=== PATIENT | male | born 1950 | race Caucasian/White ===

== ENCOUNTER 2020-01-19 10:36 | Outpatient (REF) | payer MEDICARE, OTHER, SELFPAY ==
[2020-01-19 13:19] LABS: MANUAL DIFF FLAG NO
[2020-01-19 13:22] LABS: Basophils Absolute Auto 0.1 X10*3/uL (0.0-0.2); Basophils Percent Auto 0.7 % (0-2); Eosinophils Absolute Auto 0.1 X10*3/uL (0.0-0.4); Eosinophils Percent Auto 1.2 % (0-4); Hematocrit 47.2 % (42-52); Imm Gran Abs Auto 0.04 X10*3/uL (0.00-0.03); Imm Gran Pct Auto 0.4 % (0.0-0.4); Lymphocytes Absolute Auto 1.2 X10*3/uL (1.2-4.9); Lymphocytes Percent Auto 13.6 % (20-40); Mean Corpuscular HGB Conc 33.9 g/dl (31.0-36.0); Mean Corpuscular Hemoglobin 33.8 pg (27.0-33.0); Mean Corpuscular Volume 99.8 fL (80-98); Monocytes Absolute Auto 0.5 X10*3/uL (0.1-1.2); Monocytes Percent Auto 4.9 % (2-11); Neutrophils Absolute Auto 7.3 X10*3/uL (2.0-8.3); Neutrophils Percent Auto 79.2 % (45-73); Platelet Count 255 X10*3/uL (160-400); Red Blood Count 4.73 X10*6/uL (4.60-5.80); Red Cell Distribution Width 13.1 % (11.0-16.0); White Blood Count 9.2 X10*3/uL (4.8-10.8)
[2020-01-19 14:03] LABS: Alanine Aminotransferase 7 U/L (0-40); Albumin Level 4.4 g/dL (3.5-5.0); Alkaline Phosphatase 60 U/L (39-117); Anion Gap 13 (12-20); Aspartate Amino Transferase 19 U/L (5-37); Bilirubin Total 0.7 mg/dL (0.0-1.0); Blood Urea Nitrogen 19 mg/dL (9-16); C Reactive Protein 0.11 mg/dL (< or = 0.50); Calcium 8.9 mg/dL (8.4-10.2); Carbon Dioxide 26 mmol/L (22-29); Chloride 107 mmol/L (96-108); Estimated Glomerular Filt Rate > 60; Glucose Random 96 mg/dL (60-115); Potassium 3.8 mmol/l (3.3-5.1); Sodium 142 mmol/L (135-145); Total Protein 6.7 g/dL (6.5-8.0)
== END 2020-01-19 10:37 | disposition home or self-care (01) ==
LOC: HO.10HDL 10:36
PROVIDERS: Visit Provider Internal Medicine
DX: I10 Essential (primary) hypertension (principal); K21.9 Gastro-esophageal reflux disease without esophagitis; E03.9 Hypothyroidism, unspecified; M54.9 Dorsalgia, unspecified
CPT/HCPCS: 36415; 80053; 85025; 86140

== ENCOUNTER → 2020-01-21 08:05 | Outpatient (BNVA) | payer MEDICARE, OTHER, SELFPAY | PROVIDERS: PCP Internal Medicine; Visit Provider Anesthesiology | DX: M96.1 Postlaminectomy syndrome, not elsewhere classified (principal); G89.4 Chronic pain syndrome; M17.0 Bilateral primary osteoarthritis of knee; Z98.1 Arthrodesis status | CPT/HCPCS: 99214 ==

== ENCOUNTER → 2020-02-18 08:00 | Outpatient (BNVA) | payer MEDICARE, OTHER, SELFPAY | PROVIDERS: PCP Internal Medicine; Visit Provider Anesthesiology | DX: G89.4 Chronic pain syndrome (principal); M96.1 Postlaminectomy syndrome, not elsewhere classified; M17.0 Bilateral primary osteoarthritis of knee; Z79.891 Long term (current) use of opiate analgesic | CPT/HCPCS: 99212 ==

== ENCOUNTER 2020-03-02 10:35 | Emergency (ER) | payer MEDICARE, OTHER, SELFPAY ==
--- NOTE | 2020-03-02 11:16 | ED_ITS ---
HPI - General Adult General Chief complaint: Neck Pain/Injury Stated complaint: NECK PAIN, NAUSEA Time Seen by Provider: 03/02/20 11:16 Source: patient Mode of arrival: ambulatory Limitations: no limitations History of Present Illness HPI narrative: patient with chronic neck pain, seen at pain clinic on dilaudid and lidoderm patch. Going to have cervical spine surgery at [facility]. Surgery is scheduled for 2 weeks. Patient feels horrible with nausea from his neck Onset (ago): month(s) Radiation: neck and extremity Severity: severe Quality: burning and aching Pain Consistency: constant Associated symptoms: other (patient denies bowel or leg problems) Related Data Home Medications Medication Instructions Recorded Confirmed acetaminophen 650 mg 650 mg PO Q8H 01/21/20 02/18/20 tablet,extended release amantadine HCl 100 mg capsule 100 mg PO BID 01/21/20 02/18/20 carbidopa 25 mg-levodopa 100 mg 1 tab PO QID 01/21/20 02/18/20 tablet diazepam 5 mg tablet 5 mg PO BID PRN 01/21/20 02/18/20 diclofenac sodium 1 % topical gel 2 g TOPICAL QID 01/21/20 02/18/20 diltiazem HCl 240 mg 240 mg PO DAILY 01/21/20 02/18/20 capsule,extended release 24 hr finasteride 5 mg tablet 5 mg PO DAILY 01/21/20 02/18/20 ibuprofen 200 mg tablet 200 mg PO Q6H PRN 01/21/20 02/18/20 levothyroxine 50 mcg tablet 50 mcg PO DAILY 01/21/20 02/18/20 lidocaine 5 % topical patch 1 patch TOPICAL DAILY 01/21/20 02/18/20 lisinopril 10 mg tablet 10 mg PO DAILY 01/21/20 02/18/20 multivitamin 1 tab PO DAILY 01/21/20 02/18/20 ondansetron HCl 4 mg tablet 4 mg PO Q8H 01/21/20 02/18/20 polyethylene glycol 3350 17 17 g PO DAILY 01/21/20 02/18/20 gram/dose oral powder pregabalin 100 mg capsule 100 mg PO BEDTIME 01/21/20 02/18/20 tamsulosin 0.4 mg capsule 0.4 mg PO BEDTIME 01/21/20 02/18/20 Previous Rx's Medication Instructions Recorded baclofen 10 mg tablet 10 mg PO TID 30 Days #90 tab MDD 3 01/21/20 pills hydromorphone 2 mg tablet 4 mg PO Q8H PRN 30 Days #112 tab 02/18/20 Allergies Allergy/AdvReac Type Severity Reaction Status Date / Time Sulfa (Sulfonamide Allergy Severe HIVES/DIFF. Unverified 01/01/20 16:49 Antibiotics) BREATHING vancomycin [VANCOMYCIN] Allergy Severe SHORTNESS Unverified 01/01/20 16:49 OF BREATH cephalexin [CEPHALEXIN] Allergy Intermediate SHORTNESS Unverified 01/01/20 16:49 OF BREATH DAIRY PRODUCTS AdvReac Intermediate GI Uncoded 01/01/20 16:49 UPSET/DIARRHEA Review of Systems Constitutional: Constitutional: Reports no additional constitutional complaints Eyes: Eyes: Reports no additional eye complaints ENT: Denies dizziness Cardiovascular: Cardiovascular: Reports no additional cardiovascular complaints Respiratory: Respiratory: Reports as per HPI Gastrointestinal: Gastrointestinal: Reports no additional gastrointestinal complaints Musculoskeletal: Musculoskeletal: Reports no additional musculoskeletal complaints Integumentary/Breasts: Skin/Breast: Denies rash Neurologic: Reports system reviewed and no additional complaints, except as documented, Denies dizziness and Denies Sensory deficit (Neuro) Psychiatric: Psychiatric: Denies anxiety PMFSH Past Medical History Medical History Bilateral primary osteoarthritis of knee Chronic pain syndrome Failed back syndrome of cervical spine Social History Social History Advance Directives: Yes Advance Directives on File: Yes Advance Directives Date on File: 01/19/20 Physical Exam Vital Signs: Vital Signs: Last Vital Signs Temp 98 F 03/02/20 11:20 Pulse 92 03/02/20 11:20 Resp 18 03/02/20 11:20 BP 144/98 H 03/02/20 11:20 Pulse Ox 98 03/02/20 11:20 Body Mass Index 32.8 Const: General: healthy appearing Nutritional Appearance: average body habitus Orientation/consciousness: oriented to person and patient oriented x3 Limitations: no limitations HENMT: Head: Yes normal to inspection Ears: external ears normal General nose exam: Normal external nose present Mouth: Normal oral and palatal mucosa present and oropharynx normal Throat: Yes posterior oropharynx normal Eyes: General: appearance normal, both eyes and all related structures Neck: Other: supple Neck: Yes normal visual inspection Chest: Chest palpation & inspection: normal inspection of the chest Resp: Auscultation: clear to auscultation bilaterally Cardio: Jugular venous distension: no JVD Rate: regular rate Rhythm: regular rhythm Heart sounds: S1 normal heart sound present and S2 normal heart sound present GI: Inspection: Yes normal to inspection Palpation (GI): Soft to palpation, nontender and No hepatosplenomegaly present Auscultation: normal bowel sounds : General: Yes no CVA tenderness Back/Spine/Pelvis: Back: no CVA tenderness Skin: General skin exam: no rashes or lesions noted Neuro: General: oriented to person and patient oriented x3 Cranial nerves: Yes CN's II-XII intact bilaterally Motor exam (neuro): 5/5 motor strength present throughout Sensory Exam: No Sensory deficit (Neuro) Extrem: General: Yes normal to inspection Psych: Appearance: grossly normal Course Course Course Narrative: patient resting more comfortably will dc home Medical Decision Making [facility] Narrative Medical decision making narrative: chronic radicular pain from cervical disease will dc home Discharge Plan Discharge Clinical Impression: Chronic pain syndrome, Disc disorder of cervical region, Cervical radiculopathy Patient Disposition: Home, Self-Care Instructions: Cervical Disc Herniation (ED), Cervical Radiculopathy (ED), Osteoarthritis (ED) Prescriptions: No Action diltiazem HCl 240 mg capsule,extended release 24hr 240 mg PO DAILY RF: 0 levothyroxine 50 mcg tablet 50 mcg PO DAILY RF: 0 diazepam 5 mg tablet 5 mg PO BID PRNRF: 0 lidocaine 5 % adhesive patch,medicated 1 patch topical DAILY RF: 0 diclofenac sodium 1 % gel 2 g topical QID RF: 0 carbidopa-levodopa 25-100 mg tablet 1 tab PO QID RF: 0 tamsulosin 0.4 mg capsule 0.4 mg PO BEDTIME RF: 0 amantadine HCl 100 mg capsule 100 mg PO BID RF: 0 lisinopril 10 mg tablet 10 mg PO DAILY RF: 0 polyethylene glycol 3350 [Miralax] 17 gram/dose powder 17 g PO DAILY RF: 0 ibuprofen 200 mg tablet 200 mg PO Q6H PRNRF: 0 finasteride 5 mg tablet 5 mg PO DAILY RF: 0 pregabalin 100 mg capsule 100 mg PO BEDTIME RF: 0 ondansetron HCl 4 mg tablet 4 mg PO Q8H RF: 0 multivitamin [Daily Multi-Vitamin] Tablet 1 tab PO DAILY RF: 0 acetaminophen [Tylenol Arthritis Pain] 650 mg tablet extended release 650 mg PO Q8H RF: 0 baclofen 10 mg tablet 10 mg PO TID MDD 3 pills 30 Days Qty: 90 RF: 11 hydromorphone [Dilaudid] 2 mg tablet 4 mg PO Q8H PRN (Reason: pain) 30 Days Qty: 112 RF: 0 Referrals: Enrrique Bryan MD [Primary Care Provider] - 2 days
[2020-03-02 11:20] VITALS: BP 144/98; PULSE 92; RESP 18; TEMP 36.6; O2SAT 98; BMI 32.8
[2020-03-02] MEDS: ondansetron HCL 4 MG/2 ML VIAL IVPUSH (11:54)
[2020-03-02] MEDS: Ketorolac Tromethamine 30 MG/ML VIAL IVPUSH (11:54)
[2020-03-02] MEDS: HYDROmorphone HCl 2 MG/ML VIAL IVPUSH (11:55)
== END 2020-03-02 12:37 | disposition home or self-care (01) ==
PROVIDERS: Emergency Provider Emergency Medicine; PCP Internal Medicine
DX: M54.12 Radiculopathy, cervical region (principal); M54.2 Cervicalgia; G89.29 Other chronic pain; R11.2 Nausea with vomiting, unspecified; Z79.899 Other long term (current) drug therapy
CPT/HCPCS: 96374; 96375; 99283; 99284; J1170; J1885; J2405

== ENCOUNTER 2020-03-04 15:14 | Outpatient (REF) | payer SELFPAY | END 2020-03-04 15:15 | disposition home or self-care (01) | LOC: HO.HAP 15:14 | PROVIDERS: PCP Internal Medicine; Referring Provider Internal Medicine; Visit Provider Internal Medicine | DX: Z13.89 Encounter for screening for other disorder (principal) | CPT/HCPCS: 92700 ==

== ENCOUNTER 2020-03-11 15:26 | Emergency (ER) | payer MEDICARE, OTHER, SELFPAY ==
--- NOTE | 2020-03-11 15:32 | ED.EXTPRO ---
HPI - Extremity Problem General Chief complaint: Extremity Injury, Upper Stated complaint: FINGER INFECTION Time Seen by Provider: 03/11/20 15:30 Source: patient Mode of arrival: ambulatory Limitations: no limitations History of Present Illness HPI Narrative: 69 y/o male with history of chronic pain syndrome on chronic opiates due to postlaminectomy syndrome after 2 neck fusions, osteoarthritis, Parkinson's disease, hypothyroidism, BHN, restless leg syndrome who presents with concerns of ongoing infection in his 2nd and 3rd fingernails. He was treated with Doxycycline by his PCP for paronychia and has some continued tenderness and swelling. He has a major surgery coming up in 4 days at [facility] for his neck and is worried that if his fingernails are infected it may affect his opportunity to get surgery. He denies fever, chills, inability to bend his fingers, throbbing pain, weakness, numbness. He attempted to cut his nails and dig out a possible ingrown nail last week and thinks it might have made it worse. Related Data Home Medications Medication Instructions Recorded Confirmed acetaminophen 650 mg 650 mg PO Q8H 01/21/20 02/18/20 tablet,extended release amantadine HCl 100 mg capsule 100 mg PO BID 01/21/20 02/18/20 carbidopa 25 mg-levodopa 100 mg 1 tab PO QID 01/21/20 02/18/20 tablet diazepam 5 mg tablet 5 mg PO BID PRN 01/21/20 02/18/20 diclofenac sodium 1 % topical gel 2 g TOPICAL QID 01/21/20 02/18/20 diltiazem HCl 240 mg 240 mg PO DAILY 01/21/20 02/18/20 capsule,extended release 24 hr finasteride 5 mg tablet 5 mg PO DAILY 01/21/20 02/18/20 ibuprofen 200 mg tablet 200 mg PO Q6H PRN 01/21/20 02/18/20 levothyroxine 50 mcg tablet 50 mcg PO DAILY 01/21/20 02/18/20 lidocaine 5 % topical patch 1 patch TOPICAL DAILY 01/21/20 02/18/20 lisinopril 10 mg tablet 10 mg PO DAILY 01/21/20 02/18/20 multivitamin 1 tab PO DAILY 01/21/20 02/18/20 ondansetron HCl 4 mg tablet 4 mg PO Q8H 01/21/20 02/18/20 polyethylene glycol 3350 17 17 g PO DAILY 01/21/20 02/18/20 gram/dose oral powder pregabalin 100 mg capsule 100 mg PO BEDTIME 01/21/20 02/18/20 tamsulosin 0.4 mg capsule 0.4 mg PO BEDTIME 01/21/20 02/18/20 Previous Rx's Medication Instructions Recorded baclofen 10 mg tablet 10 mg PO TID 30 Days #90 tab MDD 3 01/21/20 pills hydromorphone 2 mg tablet 4 mg PO Q8H PRN 30 Days #112 tab 02/18/20 doxycycline hyclate 100 mg PO DAILY #10 cap 03/11/20 Allergies Allergy/AdvReac Type Severity Reaction Status Date / Time Sulfa (Sulfonamide Allergy Severe HIVES/DIFF. Verified 03/11/20 16:03 Antibiotics) BREATHING vancomycin [VANCOMYCIN] Allergy Severe SHORTNESS Verified 03/11/20 16:03 OF BREATH cephalexin [CEPHALEXIN] Allergy Intermediate SHORTNESS Verified 03/11/20 16:03 OF BREATH DAIRY PRODUCTS AdvReac Intermediate GI Uncoded 01/01/20 16:49 UPSET/DIARRHEA Review of Systems Review of Systems: Constitutional: No Fever, No Chills Musculoskeletal: + joint pain, No Myalgias Skin: + Skin Lesions, No rash Neuro: No Weakness, No Numbness, No Dizziness, No Headache Psych: + Anxiety, No Depression Heme/Lymph: No Bruising, No Lymphadenopathy PMFSH Past Medical History Attestation statement: The following information was validated with the patient. Medical History Bilateral primary osteoarthritis of knee BPH (benign prostatic hyperplasia) Chronic pain syndrome Failed back syndrome of cervical spine GERD (gastroesophageal reflux disease) Hard of hearing Hypothyroidism Parkinsons Restless leg syndrome Social History Social History Advance Directives: Yes Advance Directives on File: Yes Advance Directives Date on File: 01/19/20 Physical Exam Vital Signs: Vital Signs: VSS Appearance: Alert. Oriented X3. No acute distress. HEENT: normal inspection Respiratory: No respiratory distress. Skin: Skin warm and dry. Normal skin color. Normal skin turgor. No rashes. Extremities: left digits 2 and 3 with mild scabbing and swelling, no erythema, no pus, full function of DIP no pulp tenderness. NV intact Neuro: Oriented X 3. bilateral hand tremor consistent with Parkinson's Course Course Course Narrative: 69 y/o male here with paronychias of left digits 2 and 3 - healing but not completely resolved. No area to drain, no abscess, very mild cellulitis with healing scabbing. No I&D indicated at this time. No evidence of deep infection. No need for imaging. Will continue doxycycline given he has upcoming surgery in order to promote healing. Educated on warm soaks and further management. Critical Care Time Critical Care Time Critical Care Time: No Discharge Plan Discharge Clinical Impression: Paronychia Patient Disposition: Home, Self-Care Instructions: Paronychia (ED) Additional Instructions: Your fingernail infections are healing. We will continue you on antibiotics until you go for your surgery next week. Recommend using warm water soaks with antibacterial soap 3-4 times per day. Do not attempt to clip or cut your nails, it can make the infection worse. If you notice the redness, swelling or pain are increasing call your doctor or come back to the ER for further evaluation. Prescriptions: New doxycycline hyclate 100 mg capsule 100 mg PO DAILY Qty: 10 RF: 0 No Action diltiazem HCl 240 mg capsule,extended release 24hr 240 mg PO DAILY RF: 0 levothyroxine 50 mcg tablet 50 mcg PO DAILY RF: 0 diazepam 5 mg tablet 5 mg PO BID PRNRF: 0 lidocaine 5 % adhesive patch,medicated 1 patch topical DAILY RF: 0 diclofenac sodium 1 % gel 2 g topical QID RF: 0 carbidopa-levodopa 25-100 mg tablet 1 tab PO QID RF: 0 tamsulosin 0.4 mg capsule 0.4 mg PO BEDTIME RF: 0 amantadine HCl 100 mg capsule 100 mg PO BID RF: 0 lisinopril 10 mg tablet 10 mg PO DAILY RF: 0 polyethylene glycol 3350 [Miralax] 17 gram/dose powder 17 g PO DAILY RF: 0 ibuprofen 200 mg tablet 200 mg PO Q6H PRNRF: 0 finasteride 5 mg tablet 5 mg PO DAILY RF: 0 pregabalin 100 mg capsule 100 mg PO BEDTIME RF: 0 ondansetron HCl 4 mg tablet 4 mg PO Q8H RF: 0 multivitamin [Daily Multi-Vitamin] Tablet 1 tab PO DAILY RF: 0 acetaminophen [Tylenol Arthritis Pain] 650 mg tablet extended release 650 mg PO Q8H RF: 0 baclofen 10 mg tablet 10 mg PO TID MDD 3 pills 30 Days Qty: 90 RF: 11 hydromorphone [Dilaudid] 2 mg tablet 4 mg PO Q8H PRN (Reason: pain) 30 Days Qty: 112 RF: 0
[2020-03-11 15:39] VITALS: BP 158/88; PULSE 94; RESP 18; TEMP 37.1; O2SAT 98; BMI 32.1
--- NOTE | 2020-03-11 16:03 | PC.NURSE ---
PT EVALED BY PROVIDER. AREAS ON LEFT 2ND, 3RD FINGERS HEALING. NO PURULENT DRAINAGE. BACITRACIN AND BANDAID APPLIED.
== END 2020-03-11 16:19 | disposition home or self-care (01) ==
PROVIDERS: Emergency Provider Emergency Medicine Emergency Medical Services; PCP Internal Medicine
DX: L03.012 Cellulitis of left finger (principal); G89.29 Other chronic pain; G20 Parkinson's disease; G25.81 Restless legs syndrome; Z79.899 Other long term (current) drug therapy
CPT/HCPCS: 99283

== ENCOUNTER 2020-05-03 15:23 | Outpatient (REF) | payer MEDICARE, OTHER, SELFPAY ==
[2020-05-03 15:28] LABS: MANUAL DIFF FLAG NO
[2020-05-03 15:35] LABS: Basophils Absolute Auto 0.1 X10*3/uL (0.0-0.2); Eosinophils Absolute Auto 0.3 X10*3/uL (0.0-0.4); Eosinophils Percent Auto 4.6 % (0-4); Hematocrit 33.8 % (42-52); Hemoglobin 10.4 g/dl (14.0-18.0); Imm Gran Abs Auto 0.02 X10*3/uL (0.00-0.03); Imm Gran Pct Auto 0.3 % (0.0-0.4); Lymphocytes Absolute Auto 1.3 X10*3/uL (1.2-4.9); Lymphocytes Percent Auto 22.2 % (20-40); Mean Corpuscular HGB Conc 30.8 g/dl (31.0-36.0); Mean Corpuscular Hemoglobin 28.3 pg (27.0-33.0); Mean Corpuscular Volume 92.1 fL (80-98); Mean Platelet Volume 8.8 fL (9.4-12.4); Monocytes Absolute Auto 0.5 X10*3/uL (0.1-1.2); Monocytes Percent Auto 8.7 % (2-11); Neutrophils Absolute Auto 3.7 X10*3/uL (2.0-8.3); Neutrophils Percent Auto 63.2 % (45-73); Platelet Count 251 X10*3/uL (160-400); Red Blood Count 3.67 X10*6/uL (4.60-5.80); Red Cell Distribution Width 14.6 % (11.0-16.0); White Blood Count 5.9 X10*3/uL (4.8-10.8)
[2020-05-03 16:09] LABS: Alanine Aminotransferase < 6 U/L (0-40); Albumin Level 3.2 g/dL (3.5-5.0); Alkaline Phosphatase 162 U/L (39-117); Anion Gap 12 (12-20); Aspartate Amino Transferase 13 U/L (5-37); Bilirubin Total < 0.2 mg/dL (0.0-1.0); Blood Urea Nitrogen 11 mg/dL (9-16); C Reactive Protein 0.71 mg/dL (< or = 0.50); Calcium 8.2 mg/dL (8.4-10.2); Carbon Dioxide 29 mmol/L (22-29); Chloride 105 mmol/L (96-108); Estimated Glomerular Filt Rate > 60; Glucose Random 108 mg/dL (60-115); Potassium 3.6 mmol/l (3.3-5.1); Sodium 142 mmol/L (135-145); Total Protein 5.6 g/dL (6.5-8.0)
[2020-05-03 16:39] LABS: Erythrocyte Sedimentation Rate 22 MM/HR (0-15)
== END 2020-05-03 15:24 | disposition home or self-care (01) ==
LOC: HO.LNP 15:23
PROVIDERS: Visit Provider Neurological Surgery
DX: R78.81 Bacteremia (principal)
CPT/HCPCS: 80053; 85025; 85652; 86140

== ENCOUNTER 2020-05-31 07:11 | Outpatient (REF) | payer MEDICARE, OTHER, SELFPAY ==
[2020-05-31 08:39] LABS: Thyroid Stimulating Hormone 1.98 uIU/mL (0.32-4.0)
[2020-05-31 09:08] LABS: Vitamin B12 303 pg/mL (200-900)
== END 2020-05-31 07:12 | disposition home or self-care (01) ==
LOC: HO.LAB 07:11
PROVIDERS: Visit Provider Internal Medicine
DX: E03.9 Hypothyroidism, unspecified (principal); I10 Essential (primary) hypertension; G20 Parkinson's disease
CPT/HCPCS: 36415; 82607; 84439; 84443

== ENCOUNTER 2020-06-11 10:13 | Outpatient (REF) | payer MEDICARE, OTHER, SELFPAY ==
--- NOTE | 2020-06-14 08:38 | MHC.AU.P13 ---
Adult Audiological Evaluation Date of Visit: 06/11/20 Reason for Appointment: History of hearing loss. Patient arrives to determine if there has been a change in hearing. 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: [employer] Model: HarQen M70-13T Serial Number: [id number] Battery Size: 13 Repair Warranty: 02/01/2023 Dispensed By: [facility] Date of Fittin11/24/2019 Hearing Instrument History- Left Ear: 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: [employer] Model: HarQen M70-13T Serial Number: [id number] Battery Size: 13 Warranty: 02/01/2023 Dispensed By: [facility] Date of Fittin11/24/2019 Otoscopy: Right Ear: Unremarkable Left Ear: Unremarkable Tympanometry: Tympanometry performed due to: To assess integrity of the middle ear system Right Ear: Normal Middle Ear System (Type A) Left Ear: Normal Middle Ear System (Type A) Hearing Evaluation: Transducer(s) Used: Insert Earphones Method: Conventional Audiometry Stimuli Used: Pure Tones Right Ear: Description of Hearing: Mild sloping to severe sensorinerual hearing loss Left Ear: Description of Hearing: Mild sloping to severe sensorineural hearing loss Speech Recognition Threshold (SRT): Method Used: Recorded Lists Stimuli Used: Spondee Words Right Ear: 70 dBHL Left Ear: 70 dBHL Word Discrimination: Method: Recorded Lists Word Lists Used: NU-6 Right Ear: 76% at 85 dBHL Left Ear: 76% at 85 dBHL Most Comfortable Level (MCL): Right Ear: 85 dBHL Left Ear: 80 dBHL Aided Testing: Aided word discrimination is 92% at 55 dBHL Comparison: Compared to most recent evaluation: No significant shifts noted since 06/03/2019 Recommendations: Audiological re-evaluation in one year. Hearing aid maintenance performed today. No programming changes made today, as patient is happy with the current sound and aided testing shows good benefit. Diagnosis: Primary Diagnosis: H90.3 Bilateral Sensorineural Hearing Loss Services Performed: Comprehensive Audiological Evaluation (CPT 09734), Tympanometry (CPT 60372) Signature: Provider: Jeramy Whitmore, CCC-A
== END 2020-06-11 10:14 | disposition home or self-care (01) ==
LOC: HO.SH 10:13
PROVIDERS: Visit Provider Internal Medicine
DX: H90.3 Sensorineural hearing loss, bilateral (principal)
CPT/HCPCS: 92557; 92567

== ENCOUNTER 2020-08-24 11:00 | Outpatient (RCR) | payer MEDICARE, OTHER, SELFPAY | END 2020-08-24 11:57 | disposition other institution (70) | LOC: HO.PT 11:00 | PROVIDERS: PCP Internal Medicine; Visit Provider Nurse Practitioner Family | DX: M40.12 Other secondary kyphosis, cervical region (principal); Z98.1 Arthrodesis status | CPT/HCPCS: 97110; 97112; 97140; 97162; 97530 ==

== ENCOUNTER 2020-09-06 10:56 | Outpatient (REF) | payer SELFPAY ==
--- NOTE | 2020-09-06 11:05 | MHC.AU.P13 ---
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 Cleaned and replaced wax guard, medium power dome - now amplifying clearly. Recommendations: Recommendations: Hearing instrument follow-up or maintenance as needed. Signature: Provider: KRISTI Bedoya
== END 2020-09-06 10:57 | disposition home or self-care (01) ==
LOC: HO.HAP 10:56
PROVIDERS: Visit Provider Internal Medicine
DX: Z13.89 Encounter for screening for other disorder (principal)

== ENCOUNTER → 2020-09-15 08:02 | Outpatient (BNVA) | payer MEDICARE, OTHER, SELFPAY | PROVIDERS: PCP Internal Medicine; Visit Provider Anesthesiology | DX: M96.1 Postlaminectomy syndrome, not elsewhere classified (principal); M17.0 Bilateral primary osteoarthritis of knee; G89.4 Chronic pain syndrome; Z79.899 Other long term (current) drug therapy | CPT/HCPCS: 99212 ==

== ENCOUNTER → 2020-10-21 08:28 | Outpatient (BNVA) | payer MEDICARE, OTHER, SELFPAY | PROVIDERS: PCP Internal Medicine; Visit Provider Anesthesiology | DX: M96.1 Postlaminectomy syndrome, not elsewhere classified (principal); M17.0 Bilateral primary osteoarthritis of knee; G89.4 Chronic pain syndrome; G20 Parkinson's disease | CPT/HCPCS: 99212 ==

== ENCOUNTER → 2020-10-27 08:56 | Outpatient (BNVA) | payer MEDICARE, OTHER, SELFPAY | PROVIDERS: PCP Internal Medicine; Visit Provider Internal Medicine Cardiovascular Disease | DX: I49.1 Atrial premature depolarization (principal); I11.9 Hypertensive heart disease without heart failure; I45.10 Unspecified right bundle-branch block | CPT/HCPCS: 93005; 99212 ==

== ENCOUNTER → 2020-12-07 09:34 | Outpatient (REF) | payer MEDICARE, OTHER, SELFPAY ==
--- NOTE | 2020-12-07 09:38 | CA_ITS ---
Transthoracic Echocardiogram Patient (Last, First, Middle): Kevan Rivas M Gender: Male Date of : 1950 Age: 70 Procedure Date: 12/07/2020 Procedure Type: Transthoracic Echocardiogram Location: OP Height: 172.72 cm Weight: 92.99 kg BSA: 2.07 m2 Heart Rate: bpm BP: 124 / 70 mmHg Child Support Case Officer: CHERELLE Referring MD: Carlos A Collins MD Symptoms: I45.10 - Unspecified right bundle-branch block Study Quality: Fair ECG Rhythm: Sinus Conclusions: - The left ventricular systolic function is normal. The calculated ejection fraction is 60% by biplane method. - No obvious valvular pathology seen on this study. - Small plaque is seen in the sino tubular ridge. Findings Left Ventricle Normal left ventricular cavity size. There is mildly increased left ventricular wall thickness. The left ventricular systolic function is normal. The calculated ejection fraction is 60% by biplane method. There is no evidence of regional wall motion abnormalities. Diastolic function is normal for age. Right Ventricle Normal right ventricular cavity size and systolic function. TAPSE 2.53cm. Atria Both atria are normal in size. Aortic Valve There is a normal trileaflet aortic valve. There is mild calcification of the aortic valve. There is no aortic valve stenosis. There is no aortic valve regurgitation. Mitral Valve The mitral valve appears normal. There is no mitral valve regurgitation. There is no mitral valve stenosis. Pulmonic Valve The pulmonic valve is likely normal. Tricuspid Valve Normal tricuspid valve structure. There is no tricuspid valve regurgitation. The pulmonary artery systolic pressure is normal. Great Vessels The aortic annulus, sinuses of valsalva, and asc aorta are normal in size. Small plaque is seen in the sino tubular ridge. Venous The inferior vena cava is normal in size and collapses greater than 50% with inspiration. Pericardium/Pleural There is no evidence of pericardial effusion. Prior Study Comparison No significant change compared to prior study dated: 09/05/2018. Recommendations, Care & Conclusions No obvious valvular pathology seen on this study. Measurements 2D Linear Measurements IVSd: 1.32 0.6-0.9/0.6-1.0 cm LVIDd: 3.80 3.9-5.3/4.2-5.9 cm LVIDd Index: 1.84 2.4-3.2/2.2-3.1 cm/m2 LVIDs: 2.44 2.0-3.6 cm LVPWd: 1.39 0.7-1.1 cm Ao Root: 3.30 2.1-3.5 cm LA Diam: 2.90 2.7-3.8/3.0-4.0 cm LAIDs Index: 1.40 1.5-2.3 cm/m2 LV Mass: 229.86 67-162/88-224 g LV Mass Index: 111.05 43-95/49-115 g/m2 LVOT Diam: 2.20 3.0+(-)1.3 cm 2D Systolic Function EF 4C: 59.30 >55% EF 2C: 55.90 >55% EF BiP: 59.50 >55% Mitral Valve MV Pk E: 0.54 MV PK A: 0.91 MV Decel Time: 199.00 E/A: 0.60 E'Lateral: 9.79 E'Medial: 6.42 E/E' Med: 8.50 E/E' Lat: 5.60 PHT: 58.00 MVA PHT: 3.79 Decel Dooly: 2.73 Aortic Valve AoV Pk Low: 1.52 AoV Mn Low: 0.94 AoV VTI: 0.32 AoV Pk Grad: 9.00 Aov Mn Grad: 4.00 KELLEY Cont.VTI: 2.50 LVOT LVOT Pk Low: 1.03 LVOT Mn Low: 0.61 LVOT VTI: 0.21 LVOT Pk Grad: 4.00 LVOT Mn Grad: 2.00 LVOT Diam: 2.20 LVOT Area: 3.80 Diastolic Function MV Pk E: 0.54 MV Pk A: 0.91 E/A: 0.60 E'Medial: 6.42 E/E' Med: 8.50 E' Laterial: 9.79 E/E' Lat: 5.60 Right Ventricle TAPSE (mm): 25.00 TVS' Low: 10.00 Tricuspid Valve TR Pk Low: 1.60 TR Pk Grad: 10.00 RA Press: 3.00 RVSP: 13.00 Great Vessels Aorta Ao Root-2D: 3.30 2.0-3.7 cm Ao Asc: 3.30 2.1-3.4 cm Pulmonary Valve PV Pk Low: 1.07 Peak PV Grad: 5.00 Updated in Other Vendor System with Status of Final Sal Sarmiento MD electronically signed on 12/07/2020 4:31:34 PM with status of Final
== END ==
LOC: HO.CARD 09:34
PROVIDERS: PCP Internal Medicine; Visit Provider Internal Medicine Cardiovascular Disease
DX: I45.10 Unspecified right bundle-branch block (principal)
CPT/HCPCS: 93306

== ENCOUNTER 2021-01-18 11:28 | Outpatient (REF) | payer SELFPAY | END 2021-01-18 11:29 | disposition home or self-care (01) | LOC: HO.HAP 11:28 | PROVIDERS: Visit Provider Internal Medicine | DX: Z13.89 Encounter for screening for other disorder (principal) ==

== ENCOUNTER 2021-02-11 08:26 | Outpatient (REF) | payer MEDICARE, OTHER, SELFPAY ==
--- NOTE | ~2021-02-11 | CT_ITS ---
EXAMINATION: CT ABDOMEN AND PELVIS WITHOUT CONTRAST CLINICAL INFORMATION: Abdominal pain and nausea COMPARISON: Previous CT of the abdomen and pelvis June 2009 TECHNIQUE: Multidetector volumetric imaging was performed from the superior aspect of the liver through the pubic symphysis. Sagittal and coronal reformatted images were obtained on the technologist's workstation. This CT examination was performed using dose optimization techniques as appropriate, variously including the following: *Automated exposure control *Adjustment of mA and/or kV according to patient size (this includes techniques or standardized protocols for targeted exams where dose is matched to indication/reason for exam; i.e. extremities or head) *Use of iterative reconstruction technique DLP: Finding on mGy-cm FINDINGS: LUNG BASES: The visualized lung bases are unremarkable. LIVER, GALLBLADDER, AND BILIARY TREE: The liver is normal in size, shape, and attenuation. No focal hepatic lesion or biliary ductal dilatation is present. The gallbladder has been removed.. PANCREAS: Unremarkable. SPLEEN: Unremarkable. ADRENAL GLANDS: Unremarkable. KIDNEYS AND URETERS: There are small bilateral low-attenuation renal lesions probably representing cysts. These measure 1 cm in the upper pole of the left kidney and 1.5 cm in the lower pole the right kidney. No imaging follow-up needed. The kidneys are otherwise unremarkable. BLADDER: Unremarkable. GASTROINTESTINAL TRACT: There is diverticulosis of the colon. No evidence of diverticulitis is seen. There is stool throughout the colon questionable for constipation. Small and large bowel is otherwise unremarkable. The appendix is unremarkable. The stomach is unremarkable. ABDOMINAL WALL: There is a left inguinal hernia containing fat. LYMPH NODES: Normal. VASCULAR: Unremarkable. PELVIC VISCERA: Unremarkable. OSSEOUS STRUCTURES: There are degenerative changes of the spine and mild scoliosis. CT/CT abdomen pelvis wo con IMPRESSION: Diverticulosis. No evidence of diverticulitis. Stool throughout the colon questionable for constipation. Left inguinal hernia containing fat.
== END 2021-02-11 08:27 | disposition home or self-care (01) ==
LOC: HO.CT 08:26
PROVIDERS: PCP Internal Medicine; Visit Provider Internal Medicine
DX: R10.84 Generalized abdominal pain (principal)
CPT/HCPCS: 74176

== ENCOUNTER 2021-02-11 16:24 | Emergency (ER) | payer MEDICARE, OTHER, SELFPAY ==
--- NOTE | ~2021-02-11 | XR_ITS ---
EXAMINATION: XR CHEST CLINICAL INFORMATION: Shortness of breath COMPARISON: Chest x-ray August 17, 2018 TECHNIQUE: Frontal portable view of the chest was obtained. 1821 hours FINDINGS: Transpedicular screws with vertical stabilization bar lower cervical spine through the mid to lower thoracic spine. No acute abnormality of the chest. No pulmonary vascular congestion. There is no pleural effusion and no pneumothorax. The heart size is normal. The cardiac and mediastinal contours are normal. XR/XR chest 1V IMPRESSION: There is no acute abnormality of the chest.
--- NOTE | 2021-02-11 16:25 | ECG_ITS ---
Test Reason : palpitations Blood Pressure : / mmHG Vent. Rate : 080 BPM Atrial Rate : 080 BPM P-R Int : 154 ms QRS Dur : 142 ms QT Int : 410 ms P-R-T Axes : 027 -33 001 degrees QTc Int : 472 ms Normal sinus rhythm Left axis deviation Right bundle branch block Abnormal ECG QRS duration has increased Referred By: Jerad Elam Electronically Signed By:MIYA DELGADILLO MD
[2021-02-11 17:58] VITALS: BP 179/106; PULSE 79; RESP 18; TEMP 36.6; O2SAT 98; BMI 30.4
--- NOTE | 2021-02-11 18:20 | ED_ITS ---
HPI - SOB/Dyspnea General Chief Complaint: Dyspnea Stated Complaint: SOB PALPATIONS Time Seen by Provider: 02/11/21 18:14 Source: patient and family () Mode of arrival: ambulatory Limitations: no limitations History of Present Illness HPI Narrative: 70-year-old male came in for evaluation of shortness of breath. Symptoms started since yesterday and it is constant all day today, symptoms was described as moderate, constant for 2 days, Associations of chest pain or abdominal pain, no recent travel or prolonged immobilization, no lower extremity swelling or pain, no relieving factor, no aggravating factor. Never had similar symptoms in the past, no recent exposure to sick contacts, patient is vaccinated with Eventful vaccination COVID. Patient declined fever chills. Patient stated that his been having stress in his life because chronic pain that he will avoid every day in his neck patient had a history of cervical neck surgery and patient follow-up with the surgeon for his chronic pain. Related Data Home Medications Medication Instructions Recorded Confirmed acetaminophen 650 mg 650 mg PO Q8H 01/21/20 10/27/20 tablet,extended release (Tylenol Arthritis Pain) carbidopa 25 mg-levodopa 100 mg 1 tab PO QID 01/21/20 10/27/20 tablet diclofenac sodium 1 % topical gel 2 g TOPICAL QID 01/21/20 10/27/20 finasteride 5 mg tablet 5 mg PO DAILY 01/21/20 10/27/20 ibuprofen 200 mg tablet 200 mg PO Q6H PRN 01/21/20 10/27/20 levothyroxine 50 mcg tablet 50 mcg PO DAILY 01/21/20 10/27/20 lidocaine 5 % topical patch 1 patch TOPICAL DAILY 01/21/20 10/27/20 lisinopril 10 mg tablet 10 mg PO DAILY 01/21/20 10/27/20 multivitamin (Daily Multi-Vitamin) 1 tab PO DAILY 01/21/20 10/27/20 polyethylene glycol 3350 17 17 g PO DAILY 01/21/20 10/27/20 gram/dose oral powder (Miralax) tamsulosin 0.4 mg capsule 0.4 mg PO BEDTIME 01/21/20 10/27/20 ondansetron HCl 4 mg tablet 4 mg PO Q8H 09/15/20 10/27/20 pantoprazole 40 mg tablet,delayed 40 mg PO BID 09/15/20 10/27/20 release tizanidine 2 mg tablet 2 mg PO BID PRN 09/15/20 10/27/20 ropinirole 3 mg tablet 3 mg PO tab 10/21/20 10/27/20 selegiline HCl 5 mg tablet 5 mg PO BID 10/21/20 10/27/20 amantadine HCl 100 mg capsule 100 mg PO TID cap 10/27/20 10/27/20 doxycycline monohydrate 100 mg 100 mg PO BID 10/27/20 10/27/20 capsule fluticasone propionate 50 spray INTRANASAL 10/27/20 10/27/20 mcg/actuation nasal spray,suspension pregabalin 75 mg capsule mg PO 10/27/20 10/27/20 tramadol 50 mg tablet 50 mg PO DAILY PRN 10/27/20 10/27/20 Previous Rx's Medication Instructions Recorded doxycycline hyclate 100 mg capsule 100 mg PO DAILY #10 cap 03/11/20 diltiazem HCl 240 mg 240 mg PO DAILY 90 Days #90 cap 05/04/20 capsule,extended release 24 hr baclofen 20 mg tablet 20 mg PO BID PRN 30 Days #60 tab 10/21/20 tizanidine 4 mg tablet 4 mg PO TID PRN 30 Days #90 tab 10/21/20 Allergies Allergy/AdvReac Type Severity Reaction Status Date / Time Sulfa (Sulfonamide Allergy Severe HIVES/DIFF. Verified 10/21/20 08:51 Antibiotics) BREATHING vancomycin [VANCOMYCIN] Allergy Severe SHORTNESS Verified 10/21/20 08:51 OF BREATH cephalexin [CEPHALEXIN] Allergy Intermediate SHORTNESS Verified 10/21/20 08:51 OF BREATH DAIRY PRODUCTS AdvReac Intermediate GI Uncoded 01/01/20 16:49 UPSET/DIARRHEA Review of Systems Review of Systems: All other systems are reviewed and are negative Constitutional: Reports as per HPI and Reports no additional constitutional complaints Eyes: Reports as per HPI and Reports no additional eye complaints Reports system reviewed and no additional complaints, except as documented Cardiovascular: Reports as per HPI and Reports no additional cardiovascular complaints Respiratory: Reports as per HPI and Reports no additional respiratory complaints Gastrointestinal: Reports as per HPI and Reports no additional gastrointestinal complaints Genitourinary: Reports no additional female genitourinary complaints Musculoskeletal: Reports no additional musculoskeletal complaints Skin/Breast: Reports system reviewed and no additional complaints, except as docu Psychiatric: Reports no additional psychiatric complaints Endocrine: Reports no additional endocrine complaints Hematologic/Lymphatic: Reports no additional hematologic/lymphatic complaints Allergic/Immunologic: Reports no additional allergic/immunologic complaints Reports system reviewed and no additional complaints, except as documented and Reports Abnormal speech present [facility] Past Medical History Medical History Bilateral primary osteoarthritis of knee BPH (benign prostatic hyperplasia) Chronic pain syndrome Failed back syndrome of cervical spine GERD (gastroesophageal reflux disease) Hard of hearing HTN (hypertension) Hypertensive heart disease Hypothyroidism PAC (premature atrial contraction) Parkinsons Restless leg syndrome Social History Social History Advance Directives: Yes Advance Directives on File: Yes Advance Directives Date on File: 01/19/20 Physical Exam Vital Signs: Vital Signs: Last Vital Signs Temp 98.1 F 02/11/21 21:50 Pulse 77 02/11/21 21:50 Resp 16 02/11/21 21:50 BP 155/93 H 02/11/21 21:50 Pulse Ox 97 02/11/21 21:50 Body Mass Index 30.4 Vital signs have been reviewed as appeared to be correct. Blood pressure normal. Heart rate normal. Respiration rate normal. Temperature normal. Ox ygen saturation normal. Appearance: Alert. Oriented X3. No acute distress. Head: Normal external exam. Normocephalic. Atraumatic. No Campos signs noted. No raccoon eyes noted Eyes: PERRLA. EOMI. Conjunctiva and sclera normal. Eyelids normal. ENT: TM's Normal. Pharynx normal. Uvula midline. Moist mucous membranes. No trismus noted. No drooling noted. No muffled voice noted. Neck: Normal inspection. Neck supple. FROM. No adenopathy. Thyroid Normal. No meningeal signs. No neck mass noted. CVS: Normal heart rate and rhythm. Heart sound normal. No murmurs noted. Pulses normal throughout. Respiratory: No respiratory distress. Painless inspiration. Breath sounds normal. No wheezes/rales/rhonchi noted. Chest nontender. No accessory muscle usage noted or decreased air movement noted. Abdomen: Soft and nontender. Bowel sounds normal in all 4 quadrants. No dist ention noted. No organomegaly noted. No visible injury noted. Back: No CVA tenderness. Full range of motion noted. Skin: Skin warm and dry. Normal skin color. Normal skin turgor. No rashes/lesi ons/lacerations noted. Extremities: No lower extremity edema. Extremities exhibit normal range of motion. Extremities nontender. Neuro: Oriented X 3. Cranial nerve exam: II-XII are grossly intact No motor deficit. No sensory deficit. Reflexes normal. Course Course Course Narrative: Assessment and plan. 70-year-old male came in for evaluation of shortness of breath, patient found to be negative for COVID infection, no pneumonia, no congestive heart failure, no cardiac related cause of patient's symptoms. Patient was reassured and will be discharged home to follow-up with PCP. MDM - SOB/Dyspnea Medical Records Attestation: I reviewed the patient's medical records. Lab Data Attestation: I reviewed the patient's lab results. Result diagrams: 02/11/21 18:28 02/11/21 18:28 Labs: Lab Results 02/11/21 02/11/21 02/11/21 Range/Units 18:28 18:28 18:28 WBC 6.8 (4.8-10.8) X10*3/uL RBC 5.04 D (4.60-5.80) X10*6/uL Hgb 15.7 D (14.0-18.0) g/dl Hct 47.8 D (42-52) % MCV 94.8 (80-98) fL MCH 31.2 (27.0-33.0) pg MCHC 32.8 (31.0-36.0) g/dl RDW 15.8 (11.0-16.0) % Plt Count 167 D (160-400) X10*3/uL MPV 8.8 L (9.4-12.4) fL Immature Gran % (Auto) 0.3 (0.0-0.4) % Neut % (Auto) 80.8 H (45-73) % Lymph % (Auto) 10.3 L (20-40) % [place] % (Auto) 6.3 (2-11) % Eos % (Auto) 1.6 (0-4) % Baso % (Auto) 0.7 (0-2) % Lymph # (Auto) 0.7 L (1.2-4.9) X10*3/uL [place] # (Auto) 0.4 (0.1-1.2) X10*3/uL Eos # (Auto) 0.1 (0.0-0.4) X10*3/uL Baso # (Auto) 0.1 (0.0-0.2) X10*3/uL Abs Immat Gran (auto) 0.02 (0.00-0.03) X10*3/uL Absolute Neuts (auto) 5.5 (2.0-8.3) X10*3/uL Absolute Nucleated RBC 0.000 (0.0-0.012) X10*3/uL Nucleated RBC % (auto) 0.0 (0.0-0.2) /100WBC Sodium 144 (135-145) mmol/L Potassium 4.1 (3.3-5.1) mmol/L Chloride 107 (96-108) mmol/L Carbon Dioxide 29 (22-29) mmol/L Anion Gap 12 (12-20) BUN 21 H D (9-16) mg/dL Creatinine 0.84 (0.5-1.4) mg/dL Estim Creat Clear Calc 88.2 Estimated GFR > 60 Random Glucose 114 (60-115) mg/dL Calcium 8.9 D (8.4-10.2) mg/dL Total Bilirubin 0.3 (0.0-1.0) mg/dL Direct Bilirubin < 0.2 (0.0-0.5) mg/dL AST 16 (5-37) U/L ALT < 6 (0-40) U/L Alkaline Phosphatase 92 D (39-117) U/L Troponin I High Sens < 3.5 (<3.5-35.0) ng/L B-Natriuretic Peptide 14 (<100) pg/mL Total Protein 6.6 (6.5-8.0) g/dL Albumin 4.3 D (3.5-5.0) g/dL Lipase 26 (8-78) U/L Urine Color Urine Appearance Urine pH (5.0-8.0) Ur Specific [place] (1.005-1.025) Urine Protein (NEG-TRACE) MG/DL Urine Glucose (UA) (NEG) MG/DL Urine Ketones (NEG) MG/DL Urine Blood (NEG) Urine Nitrite (NEG) Ur Leukocyte Esterase (NEG) Influenza Type A (PCR) (Negative) Influenza Type B (PCR) (Negative) RSV RNA Qual (PCR) (Negative) SARS-CoV-2 RNA (RT-PCR) (Negative) 02/11/21 02/11/21 Range/Units 18:28 19:22 WBC (4.8-10.8) X10*3/uL RBC (4.60-5.80) X10*6/uL Hgb (14.0-18.0) g/dl Hct (42-52) % MCV (80-98) fL MCH (27.0-33.0) pg MCHC (31.0-36.0) g/dl RDW (11.0-16.0) % Plt Count (160-400) X10*3/uL MPV (9.4-12.4) fL Immature Gran % (Auto) (0.0-0.4) % Neut % (Auto) (45-73) % Lymph % (Auto) (20-40) % [place] % (Auto) (2-11) % Eos % (Auto) (0-4) % Baso % (Auto) (0-2) % Lymph # (Auto) (1.2-4.9) X10*3/uL [place] # (Auto) (0.1-1.2) X10*3/uL Eos # (Auto) (0.0-0.4) X10*3/uL Baso # (Auto) (0.0-0.2) X10*3/uL Abs Immat Gran (auto) (0.00-0.03) X10*3/uL Absolute Neuts (auto) (2.0-8.3) X10*3/uL Absolute Nucleated RBC (0.0-0.012) X10*3/uL Nucleated RBC % (auto) (0.0-0.2) /100WBC Sodium (135-145) mmol/L Potassium (3.3-5.1) mmol/L Chloride (96-108) mmol/L Carbon Dioxide (22-29) mmol/L Anion Gap (12-20) BUN (9-16) mg/dL Creatinine (0.5-1.4) mg/dL Estim Creat Clear Calc Estimated GFR Random Glucose (60-115) mg/dL Calcium (8.4-10.2) mg/dL Total Bilirubin (0.0-1.0) mg/dL Direct Bilirubin (0.0-0.5) mg/dL AST (5-37) U/L ALT (0-40) U/L Alkaline Phosphatase (39-117) U/L Troponin I High Sens (<3.5-35.0) ng/L B-Natriuretic Peptide (<100) pg/mL Total Protein (6.5-8.0) g/dL Albumin (3.5-5.0) g/dL Lipase (8-78) U/L Urine Color YELLOW Urine Appearance HAZY Urine pH 6.0 (5.0-8.0) Ur Specific [place] 1.020 (1.005-1.025) Urine Protein NEG (NEG-TRACE) MG/DL Urine Glucose (UA) NEG (NEG) MG/DL Urine Ketones NEG (NEG) MG/DL Urine Blood NEG (NEG) Urine Nitrite NEG (NEG) Ur Leukocyte Esterase NEG (NEG) Influenza Type A (PCR) NEGATIVE (Negative) Influenza Type B (PCR) NEGATIVE (Negative) RSV RNA Qual (PCR) NEGATIVE (Negative) SARS-CoV-2 RNA (RT-PCR) NEGATIVE (Negative) Imaging Data Chest x-ray: Attestation: I personally reviewed and interpreted this imaging study as follows: Radiologist's impression: No acute intrathoracic pathology. CT scan - abdomen: Radiologist's impression: Diverticulosis. No evidence of diverticulitis. Stool throughout the colon questionable for constipation. Left inguinal hernia containing fat. ECG Data Attestation: I personally reviewed and interpreted this ECG as follows: Interpretation: Normal sinus rhythm at 80 beats per minutes, left axis deviation, right bundle-branch block. Discharge Plan Discharge Clinical Impression: Acute dyspnea Patient Disposition: Home, Self-Care Instructions: Dyspnea (ED) Prescriptions: No Action diltiazem HCl 240 mg capsule,extended release 24hr 240 mg PO DAILY 90 Days Qty: 90 RF: 3 doxycycline hyclate 100 mg capsule 100 mg PO DAILY Qty: 10 RF: 0 pantoprazole 40 mg tablet,delayed release (DR/EC) 40 mg PO BID RF: 0 tizanidine 2 mg tablet 2 mg PO BID PRNRF: 0 ondansetron HCl 4 mg tablet 4 mg PO Q8H RF: 0 ropinirole 3 mg tablet 3 mg PO RF: 0 selegiline HCl 5 mg tablet 5 mg PO BID RF: 0 tizanidine 4 mg tablet 4 mg PO TID PRN (Reason: muscle spasticity) 30 Days Qty: 90 RF: 11 baclofen 20 mg tablet 20 mg PO BID PRN (Reason: pain (scale score 4-6)) 30 Days Qty: 60 RF: 11 levothyroxine 50 mcg tablet 50 mcg PO DAILY RF: 0 lidocaine 5 % adhesive patch,medicated 1 patch topical DAILY RF: 0 diclofenac sodium 1 % gel 2 g topical QID RF: 0 carbidopa-levodopa 25-100 mg tablet 1 tab PO QID RF: 0 tamsulosin 0.4 mg capsule 0.4 mg PO BEDTIME RF: 0 lisinopril 10 mg tablet 10 mg PO DAILY RF: 0 polyethylene glycol 3350 [Miralax] 17 gram/dose powder 17 g PO DAILY RF: 0 ibuprofen 200 mg tablet 200 mg PO Q6H PRNRF: 0 finasteride 5 mg tablet 5 mg PO DAILY RF: 0 multivitamin [Daily Multi-Vitamin] Tablet 1 tab PO DAILY RF: 0 acetaminophen [Tylenol Arthritis Pain] 650 mg tablet extended release 650 mg PO Q8H RF: 0 amantadine HCl 100 mg capsule 100 mg PO TID RF: 0 doxycycline monohydrate 100 mg capsule 100 mg PO BID RF: 0 tramadol 50 mg tablet 50 mg PO DAILY PRNRF: 0 fluticasone propionate 50 mcg/actuation spray,suspension intranasal RF: 0 pregabalin 75 mg capsule PO RF: 0 Referrals: Enrrique Bryan MD [Primary Care Provider] - 2 days
[2021-02-11 18:23] VITALS: BP 146/82; RESP 18
[2021-02-11 18:34] LABS: MANUAL DIFF FLAG NO
[2021-02-11 18:40] LABS: Basophils Absolute Auto 0.1 X10*3/uL (0.0-0.2); Basophils Percent Auto 0.7 % (0-2); Eosinophils Absolute Auto 0.1 X10*3/uL (0.0-0.4); Eosinophils Percent Auto 1.6 % (0-4); Hematocrit 47.8 % (42-52); Hemoglobin 15.7 g/dl (14.0-18.0); Imm Gran Abs Auto 0.02 X10*3/uL (0.00-0.03); Imm Gran Pct Auto 0.3 % (0.0-0.4); Lymphocytes Absolute Auto 0.7 X10*3/uL (1.2-4.9); Lymphocytes Percent Auto 10.3 % (20-40); Mean Corpuscular HGB Conc 32.8 g/dl (31.0-36.0); Mean Corpuscular Hemoglobin 31.2 pg (27.0-33.0); Mean Corpuscular Volume 94.8 fL (80-98); Mean Platelet Volume 8.8 fL (9.4-12.4); Monocytes Absolute Auto 0.4 X10*3/uL (0.1-1.2); Monocytes Percent Auto 6.3 % (2-11); Neutrophils Absolute Auto 5.5 X10*3/uL (2.0-8.3); Neutrophils Percent Auto 80.8 % (45-73); Platelet Count 167 X10*3/uL (160-400); Red Blood Count 5.04 X10*6/uL (4.60-5.80); Red Cell Distribution Width 15.8 % (11.0-16.0); White Blood Count 6.8 X10*3/uL (4.8-10.8)
[2021-02-11 18:53] LABS: Alanine Aminotransferase < 6 U/L (0-40); Albumin Level 4.3 g/dL (3.5-5.0); Alkaline Phosphatase 92 U/L (39-117); Anion Gap 12 (12-20); Aspartate Amino Transferase 16 U/L (5-37); Bilirubin Direct < 0.2 mg/dL (0.0-0.5); Bilirubin Total 0.3 mg/dL (0.0-1.0); Blood Urea Nitrogen 21 mg/dL (9-16); Calcium 8.9 mg/dL (8.4-10.2); Carbon Dioxide 29 mmol/L (22-29); Chloride 107 mmol/L (96-108); Creatinine Clr Calc Pharmacy 88.2; Estimated Glomerular Filt Rate > 60; Glucose Random 114 mg/dL (60-115); Lipase 26 U/L (8-78); Potassium 4.1 mmol/L (3.3-5.1); Sodium 144 mmol/L (135-145); Total Protein 6.6 g/dL (6.5-8.0)
[2021-02-11 18:55] LABS: B Type Natriuretic Peptide 14 pg/mL (<100); Troponin-I High Sensitivity < 3.5 ng/L (<3.5-35.0)
[2021-02-11 19:12] LABS: Influenza A PCR NEGATIVE (Negative); Influenza B PCR NEGATIVE (Negative); Resp Syncy Virus RNA Qual PCR NEGATIVE (Negative); SARS COV2 PCR INHOUSE NEGATIVE (Negative)
[2021-02-11 19:19] VITALS: BP 136/87; PULSE 78; RESP 16; TEMP 36.9; O2SAT 96
[2021-02-11 19:27] LABS: Appearance Urine HAZY; Color Urine YELLOW; Glucose Urine UA NEG (NEG); Leukocyte Esterase Urine NEG (NEG); Nitrite Urine NEG (NEG); Urine Blood NEG (NEG); Urine Ketones NEG (NEG); Urine Protein NEG (NEG-TRACE)
[2021-02-11 21:50] VITALS: BP 155/93; PULSE 77; RESP 16; TEMP 36.7; O2SAT 97
[2021-02-11 23:26] VITALS: BP 150/72; PULSE 74; RESP 17; TEMP 36.6
== END 2021-02-11 23:27 | disposition home or self-care (01) ==
PROVIDERS: Emergency Provider Emergency Medicine; PCP Internal Medicine
DX: R06.00 Dyspnea, unspecified (principal); R06.02 Shortness of breath; I11.9 Hypertensive heart disease without heart failure; G20 Parkinson's disease; Z20.822 Contact with and (suspected) exposure to COVID-19
CPT/HCPCS: 0241U; 36415; 71045; 80048; 80076; 81003; 83690; 83880; 84484; 85025; 93005; 99283; 99284

== ENCOUNTER 2021-02-16 07:59 | Outpatient (REF) | payer MEDICARE, OTHER, SELFPAY ==
[2021-02-16 10:37] LABS: D Dimer 313 NG/ML
== END 2021-02-16 08:00 | disposition home or self-care (01) ==
LOC: HO.10HDL 07:59
PROVIDERS: Visit Provider Internal Medicine
DX: R06.02 Shortness of breath (principal)
CPT/HCPCS: 36415; 85379

== ENCOUNTER 2021-04-28 17:49 | Emergency (ER) | payer MEDICARE, OTHER, SELFPAY ==
--- NOTE | 2021-04-28 18:25 | ECG_ITS ---
Test Reason : feels like gonna pass out Blood Pressure : / mmHG Vent. Rate : 082 BPM Atrial Rate : 082 BPM P-R Int : 154 ms QRS Dur : 130 ms QT Int : 384 ms P-R-T Axes : 026 -29 002 degrees QTc Int : 448 ms Normal sinus rhythm Right bundle branch block Abnormal ECG When compared with ECG of 11-FEB-2021 16:29, No significant change was found Referred By: Generic ED Physician Electronically Signed By:MARY QUILES
[2021-04-28 19:25] VITALS: BP 167/79; PULSE 64; RESP 16; TEMP 36.7; O2SAT 94; BMI 31.9
[2021-04-28 20:03] LABS: COVID-19 Test Negative (Negative)
--- NOTE | 2021-04-28 23:37 | PC.NURSE ---
pt a&o, no sob or chest pain. pt ambulated well no dizziness or lightheadness. pt wanted covid results and went home.
== END 2021-04-28 23:40 | disposition left against medical advice (07) ==
PROVIDERS: Emergency Provider Emergency Medicine; PCP Internal Medicine
DX: M79.10 Myalgia, unspecified site (principal); R53.1 Weakness; Z20.822 Contact with and (suspected) exposure to COVID-19
CPT/HCPCS: 87635; 93005; 99283

== ENCOUNTER 2021-05-21 08:35 | Emergency (ER) | payer MEDICARE, OTHER, SELFPAY ==
--- NOTE | 2021-05-21 | ECG_ITS ---
Test Reason : cp Blood Pressure : / mmHG Vent. Rate : 085 BPM Atrial Rate : 085 BPM P-R Int : 156 ms QRS Dur : 140 ms QT Int : 396 ms P-R-T Axes : 024 -28 002 degrees QTc Int : 471 ms Normal sinus rhythm Right bundle branch block Abnormal ECG When compared with ECG of 28-APR-2021 18:34, No significant change was found Referred By: Joe Montiel Electronically Signed By:Claude Novoa
--- NOTE | ~2021-05-21 | XR_ITS ---
EXAMINATION: XR CHEST CLINICAL INFORMATION: Shortness of breath COMPARISON: February 11, 2021 TECHNIQUE: AP portable view of the chest was obtained. FINDINGS: There is no evidence of acute parenchymal disease, pneumothorax, or pleural effusion. Heart normal size. No evidence of pulmonary edema. Transpedicular screws and rods again seen within the lower cervical and mid to upper thoracic spine. XR/XR chest 1V IMPRESSION: No acute disease.
[2021-05-21 08:39] VITALS: BP 185/84; PULSE 89; RESP 18; TEMP 36.6; O2SAT 100; BMI 31.9
--- NOTE | 2021-05-21 08:57 | ED_ITS ---
HPI - Arrhythmia/Palpitations General Chief Complaint: Arrhythmia/Palpitations Stated Complaint: sob palpations Time Seen by Provider: 05/21/21 08:55 Source: patient Limitations: no limitations History of Present Illness HPI narrative: this is a 70 years old patient presented to the emergency department with a chief complaint of palpitations since yesterday, at this time is feeling much better denies any chest pain shortness of breath palpitations. He has history of Parkinson disease, he was evaluated by Cardiology on November 03 and diagnosed with PAC's MD complaint: palpitations Onset (ago): day(s) (1) Duration: now resolved Severity: moderate Context: occurred during rest Arrhythmia history: other (PAC's) Associated symptoms: denies other symptoms Related Data Home Medications Medication Instructions Recorded Confirmed acetaminophen 650 mg 650 mg PO Q8H 01/21/20 10/27/20 tablet,extended release (Tylenol Arthritis Pain) carbidopa 25 mg-levodopa 100 mg 1 tab PO QID 01/21/20 10/27/20 tablet diclofenac sodium 1 % topical gel 2 g TOPICAL QID 01/21/20 10/27/20 finasteride 5 mg tablet 5 mg PO DAILY 01/21/20 10/27/20 ibuprofen 200 mg tablet 200 mg PO Q6H PRN 01/21/20 10/27/20 levothyroxine 50 mcg tablet 50 mcg PO DAILY 01/21/20 10/27/20 lidocaine 5 % topical patch 1 patch TOPICAL DAILY 01/21/20 10/27/20 lisinopril 10 mg tablet 10 mg PO DAILY 01/21/20 10/27/20 multivitamin (Daily Multi-Vitamin) 1 tab PO DAILY 01/21/20 10/27/20 polyethylene glycol 3350 17 17 g PO DAILY 01/21/20 10/27/20 gram/dose oral powder (Miralax) tamsulosin 0.4 mg capsule 0.4 mg PO BEDTIME 01/21/20 10/27/20 ondansetron HCl 4 mg tablet 4 mg PO Q8H 09/15/20 10/27/20 pantoprazole 40 mg tablet,delayed 40 mg PO BID 09/15/20 10/27/20 release tizanidine 2 mg tablet 2 mg PO BID PRN 09/15/20 10/27/20 ropinirole 3 mg tablet 3 mg PO tab 10/21/20 10/27/20 selegiline HCl 5 mg tablet 5 mg PO BID 10/21/20 10/27/20 amantadine HCl 100 mg capsule 100 mg PO TID cap 10/27/20 10/27/20 doxycycline monohydrate 100 mg 100 mg PO BID 10/27/20 10/27/20 capsule fluticasone propionate 50 spray INTRANASAL 10/27/20 10/27/20 mcg/actuation nasal spray,suspension pregabalin 75 mg capsule mg PO 10/27/20 10/27/20 tramadol 50 mg tablet 50 mg PO DAILY PRN 10/27/20 10/27/20 Previous Rx's Medication Instructions Recorded doxycycline hyclate 100 mg capsule 100 mg PO DAILY #10 cap 03/11/20 baclofen 20 mg tablet 20 mg PO BID PRN 30 Days #60 tab 10/21/20 tizanidine 4 mg tablet 4 mg PO TID PRN 30 Days #90 tab 10/21/20 baclofen 10 mg tablet 10 mg PO TID 30 Days #90 tab 02/21/21 diltiazem HCl 240 mg 240 mg PO DAILY 90 Days #90 cap 04/26/21 capsule,extended release 24 hr Allergies Allergy/AdvReac Type Severity Reaction Status Date / Time Sulfa Allergy Severe HIVES/DIFF. Verified 10/21/20 08:51 (Sulfonamide Antibiotics) BREATHING vancomycin Allergy Severe SHORTNESS Verified 10/21/20 08:51 [VANCOMYCIN] OF BREATH cephalexin Allergy Intermediate SHORTNESS Verified 10/21/20 08:51 [CEPHALEXIN] OF BREATH DAIRY PRODUCTS AdvReac Intermediate GI Uncoded 01/01/20 16:49 UPSET/DIARRHEA Review of Systems Verdana 4l Review of Systems: Yes all other systems are reviewed and Verdana 4d are negative Verdana 4l Constitutional: Verdana 4d Constitutional: Verdana 4d Verdana 4d Reports no additional constitutional complaints Verdana 4l Respiratory: Verdana 4d Verdana 4d Respiratory: Verdana 4d Reports no additional respiratory complaints Verdana 4l Gastrointestinal: Verdana 4d Gastrointestinal: Verdana 4d Verdana 4d Denies abdominal pain Verdana 4l Musculoskeletal: Verdana 4d Musculoskeletal: Verdana 4d Verdana 4d Reports no additional musculoskeletal complaints Verdana 4l Neurologic: Verdana 4d Reports system reviewed and no additional complaints, except as documented PMFSH Past Medical History Medical History Bilateral primary osteoarthritis of knee BPH (benign prostatic hyperplasia) Chronic pain syndrome Failed back syndrome of cervical spine GERD (gastroesophageal reflux disease) Hard of hearing HTN (hypertension) Hypertensive heart disease Hypothyroidism PAC (premature atrial contraction) Parkinsons Restless leg syndrome Social History Social History Advance Directives: No Advance Directives Information Provided: No Advance Directives Date on File: 01/19/20 Physical Exam Verdana 4l Vital Signs: Verdana 4d Verdana 4d Vital Signs: Verdana 4d Verdana 4Bd Last Vital Signs Verdana 4d Hog Ringer New 4d Hog Ringer New 4d Temp 98.0 F 05/21/21 09:28 Hog Ringer New 4d Pulse 83 05/21/21 09:28 Hog Ringer New 4d Resp 15 05/21/21 09:28 BP 138/88 05/21/21 09:28 Pulse Ox 98 05/21/21 09:28 BMI result Body Mass Index 31.9 Const: General: cooperative, healthy appearing, comfortable and no acute distress Nutritional Appearance: average body habitus Orientation/consciousness: p atient oriented x3 HENMT: Head: Yes normal to inspection General nose exam: Normal external nose present Face and sinus: Yes normal facial exam Neck: Neck: Yes normal visual inspection, Yes full ROM and Yes no lymphadenopathy Chest: Chest palpation & inspection: normal inspection of the chest Resp: Effort & Inspection: normal respiratory effort Auscultation: clear to auscultation bilaterally Cardio: Jugular venous distension: no JVD Rate: regular rate Rhythm: regular rhythm GI: Inspection: Yes normal to inspection Palpation (GI): Soft to palpation, not firm, nontender, no guarding and not rigid Skin: General skin exam: no rashes or lesions noted, elasticity normal and turgor normal Neuro: General: patient oriented x3 Course Reevaluation(s) Reevaluation #1: workup is essentially negative with the patient remain in sinus rhythm a he was monitoring the emergency department was in sinus rhythm with a rate of about 80, high sensitive troponin is negative, he has no chest pain is oxygenating well 100% room air okay to discharge home Time: 10:27 MDM - Arrhythmia/Palpitations Lab Data Result diagrams: 05/21/21 09:24 05/21/21 09:24 Labs: Lab Results 05/21/21 05/21/21 05/21/21 Range/Units 09:24 09:24 09:24 WBC 5.6 (4.8-10.8) X10*3/uL RBC 4.71 (4.60-5.80) X10*6/uL Hgb 15.8 (14.0-18.0) g/dl Hct 47.7 (42.0-52.0) % MCV 101.3 H (80.0-98.0) fL MCH 33.5 H (27.0-33.0) pg MCHC 33.1 (31.0-36.0) g/dl RDW 12.7 (11.0-16.0) % Plt Count 157 L (160-400) X10*3/uL MPV 9.1 L (9.4-12.4) fL Immature Gran % (Auto) 0.4 (0.0-0.4) % Neut % (Auto) 64.4 (45-73) % Lymph % (Auto) 21.0 (20-40) % Yates % (Auto) 10.3 (2-11) % Eos % (Auto) 2.7 (0-4) % Baso % (Auto) 1.2 (0-2) % Lymph # (Auto) 1.2 (1.2-4.9) X10*3/uL Yates # (Auto) 0.6 (0.1-1.2) X10*3/uL Eos # (Auto) 0.2 (0.0-0.4) X10*3/uL Baso # (Auto) 0.1 (0.0-0.2) X10*3/uL Abs Immat Gran (auto) 0.02 (0.00-0.03) X10*3/uL Absolute Neuts (auto) 3.6 (2.0-8.3) x10*3/uL Absolute Nucleated RBC 0.000 (0.0-0.012) X10*3/uL Nucleated RBC % (auto) 0.0 (0.0-0.2) /100WBC PT (9.9-13.0) SEC INR (0.9-1.1) D-Dimer High Sensitivty NG/ML Sodium 145 (135-145) mmol/L Potassium 4.2 (3.3-5.1) mmol/L Chloride 110 H (96-108) mmol/L Carbon Dioxide 30 H (22-29) mmol/L Anion Gap 9 L (12-20) BUN 19 H (9-16) mg/dL Creatinine 0.85 (0.5-1.4) mg/dL Estim Creat Clear Calc 86.4 Estimated GFR > 60 Random Glucose 82 (60-115) mg/dL Calcium 9.3 (8.4-10.2) mg/dL Total Bilirubin 0.7 (0.0-1.0) mg/dL AST 17 (5-37) U/L ALT 8 (0-40) U/L Alkaline Phosphatase 83 (39-117) U/L Troponin I High Sens < 3.5 (<3.5-35.0) ng/L B-Natriuretic Peptide 21 (<100) pg/mL Total Protein 6.4 L (6.5-8.0) g/dL Albumin 4.1 (3.5-5.0) g/dL 05/21/21 Range/Units 09:24 WBC (4.8-10.8) X10*3/uL RBC (4.60-5.80) X10*6/uL Hgb (14.0-18.0) g/dl Hct (42.0-52.0) % MCV (80.0-98.0) fL MCH (27.0-33.0) pg MCHC (31.0-36.0) g/dl RDW (11.0-16.0) % Plt Count (160-400) X10*3/uL MPV (9.4-12.4) fL Immature Gran % (Auto) (0.0-0.4) % Neut % (Auto) (45-73) % Lymph % (Auto) (20-40) % Yates % (Auto) (2-11) % Eos % (Auto) (0-4) % Baso % (Auto) (0-2) % Lymph # (Auto) (1.2-4.9) X10*3/uL Yates # (Auto) (0.1-1.2) X10*3/uL Eos # (Auto) (0.0-0.4) X10*3/uL Baso # (Auto) (0.0-0.2) X10*3/uL Abs Immat Gran (auto) (0.00-0.03) X10*3/uL Absolute Neuts (auto) (2.0-8.3) x10*3/uL Absolute Nucleated RBC (0.0-0.012) X10*3/uL Nucleated RBC % (auto) (0.0-0.2) /100WBC PT 11.8 (9.9-13.0) SEC INR 1.0 (0.9-1.1) D-Dimer High Sensitivty 197 NG/ML Sodium (135-145) mmol/L Potassium (3.3-5.1) mmol/L Chloride (96-108) mmol/L Carbon Dioxide (22-29) mmol/L Anion Gap (12-20) BUN (9-16) mg/dL Creatinine (0.5-1.4) mg/dL Estim Creat Clear Calc Estimated GFR Random Glucose (60-115) mg/dL Calcium (8.4-10.2) mg/dL Total Bilirubin (0.0-1.0) mg/dL AST (5-37) U/L ALT (0-40) U/L Alkaline Phosphatase (39-117) U/L Troponin I High Sens (<3.5-35.0) ng/L B-Natriuretic Peptide (<100) pg/mL Total Protein (6.5-8.0) g/dL Albumin (3.5-5.0) g/dL Imaging Data Chest x-ray: Radiologist's impression: CLINICAL INFORMATION: Shortness of breath COMPARISON: February 11, 2021 TECHNIQUE: AP portable view of the chest was obtained. FINDINGS: There is no evidence of acute parenchymal disease, pneumothorax, or pleural effusion. Heart normal size. No evidence of pulmonary edema. Transpedicular screws and rods again seen within the lower cervical and mid to upper thoracic spine. XR/XR chest 1V IMPRESSION: No acute disease. ? Dictated By: Troy Aguila MD Signed By: <Electronically signed by Troy Aguila MD in OV> 05/21/21925 DD/ 9 TD/TT:? [employer] Pilot: ECG Data Pacemaker model: NSR 85 RBBB old Discharge Plan Discharge Clinical Impression: Palpitation Patient Disposition: Home, Self-Care Instructions: Heart Palpitations (DC) Prescriptions: No Action baclofen 10 mg tablet 10 mg PO TID 30 Days Qty: 90 8RF diltiazem HCl 240 mg capsule,extended release 24hr 240 mg PO DAILY 90 Days Qty: 90 3RF doxycycline hyclate 100 mg capsule 100 mg PO DAILY Qty: 10 0RF pantoprazole 40 mg tablet,delayed release (DR/EC) 40 mg PO BID 0RF tizanidine 2 mg tablet 2 mg PO BID PRN0RF ondansetron HCl 4 mg tablet 4 mg PO Q8H 0RF ropinirole 3 mg tablet 3 mg PO 0RF Rx Instructions: starting to reduce to stop selegiline HCl 5 mg tablet 5 mg PO BID 0RF Rx Instructions: administer with breakfast and lunch tizanidine 4 mg tablet 4 mg PO TID PRN (Reason: muscle spasticity) 30 Days Qty: 90 11RF baclofen 20 mg tablet 20 mg PO BID PRN (Reason: pain (scale score 4-6)) 30 Days Qty: 60 11RF levothyroxine 50 mcg tablet 50 mcg PO DAILY 0RF lidocaine 5 % adhesive patch,medicated 1 patch topical DAILY 0RF Rx Instructions: leave on most painful area for up to 12 hrs diclofenac sodium 1 % gel 2 g topical QID 0RF Rx Instructions: apply to single elbow, wrist or hand; for hand includes palm/fingers/back of hand carbidopa-levodopa 25-100 mg tablet 1 tab PO QID 0RF tamsulosin 0.4 mg capsule 0.4 mg PO BEDTIME 0RF lisinopril 10 mg tablet 10 mg PO DAILY 0RF polyethylene glycol 3350 [Miralax] 17 gram/dose powder 17 g PO DAILY 0RF ibuprofen 200 mg tablet 200 mg PO Q6H PRN0RF finasteride 5 mg tablet 5 mg PO DAILY 0RF multivitamin [Daily Multi-Vitamin] Tablet 1 tab PO DAILY 0RF acetaminophen [Tylenol Arthritis Pain] 650 mg tablet extended release 650 mg PO Q8H 0RF amantadine HCl 100 mg capsule 100 mg PO TID 0RF doxycycline monohydrate 100 mg capsule 100 mg PO BID 0RF tramadol 50 mg tablet 50 mg PO DAILY PRN0RF fluticasone propionate 50 mcg/actuation spray,suspension intranasal 0RF pregabalin 75 mg capsule PO 0RF Referrals: Enrrique Bryan MD [Primary Care Provider] - 3 days
[2021-05-21 09:28] VITALS: BP 138/88; PULSE 83; RESP 15; TEMP 36.7; O2SAT 98
[2021-05-21 09:29] LABS: Basophils Absolute Auto 0.1 X10*3/uL (0.0-0.2); Basophils Percent Auto 1.2 % (0-2); Eosinophils Absolute Auto 0.2 X10*3/uL (0.0-0.4); Eosinophils Percent Auto 2.7 % (0-4); Hematocrit 47.7 % (42.0-52.0); Hemoglobin 15.8 g/dl (14.0-18.0); Imm Gran Abs Auto 0.02 X10*3/uL (0.00-0.03); Imm Gran Pct Auto 0.4 % (0.0-0.4); Lymphocytes Absolute Auto 1.2 X10*3/uL (1.2-4.9); MANUAL DIFF FLAG NO; Mean Corpuscular HGB Conc 33.1 g/dl (31.0-36.0); Mean Corpuscular Hemoglobin 33.5 pg (27.0-33.0); Mean Corpuscular Volume 101.3 fL (80.0-98.0); Mean Platelet Volume 9.1 fL (9.4-12.4); Monocytes Absolute Auto 0.6 X10*3/uL (0.1-1.2); Monocytes Percent Auto 10.3 % (2-11); Neutrophils Absolute Auto 3.6 x10*3/uL (2.0-8.3); Neutrophils Percent Auto 64.4 % (45-73); Platelet Count 157 X10*3/uL (160-400); Red Blood Count 4.71 X10*6/uL (4.60-5.80); Red Cell Distribution Width 12.7 % (11.0-16.0); White Blood Count 5.6 X10*3/uL (4.8-10.8)
[2021-05-21 09:36] LABS: Prothrombin Time 11.8 SEC (9.9-13.0)
[2021-05-21 09:38] LABS: D Dimer High Sensitivity 197 NG/ML
[2021-05-21 09:56] LABS: B Type Natriuretic Peptide 21 pg/mL (<100); Troponin-I High Sensitivity < 3.5 ng/L (<3.5-35.0)
[2021-05-21 10:00] LABS: Alanine Aminotransferase 8 U/L (0-40); Albumin Level 4.1 g/dL (3.5-5.0); Alkaline Phosphatase 83 U/L (39-117); Anion Gap 9 (12-20); Aspartate Amino Transferase 17 U/L (5-37); Bilirubin Total 0.7 mg/dL (0.0-1.0); Blood Urea Nitrogen 19 mg/dL (9-16); Calcium 9.3 mg/dL (8.4-10.2); Carbon Dioxide 30 mmol/L (22-29); Chloride 110 mmol/L (96-108); Creatinine Clr Calc Pharmacy 86.4; Estimated Glomerular Filt Rate > 60; Glucose Random 82 mg/dL (60-115); Potassium 4.2 mmol/L (3.3-5.1); Sodium 145 mmol/L (135-145); Total Protein 6.4 g/dL (6.5-8.0)
[2021-05-21 10:36] VITALS: BP 148/83; PULSE 75; RESP 18; TEMP 37; O2SAT 97
== END 2021-05-21 10:41 | disposition home or self-care (01) ==
PROVIDERS: Emergency Provider Emergency Medicine; PCP Internal Medicine
DX: R00.2 Palpitations (principal); R06.02 Shortness of breath; I10 Essential (primary) hypertension; G20 Parkinson's disease
CPT/HCPCS: 36415; 71045; 80053; 83880; 84484; 85025; 85379; 85610; 93005; 99283; 99284

== ENCOUNTER 2021-05-27 09:00 | Outpatient (REF) | payer MEDICARE, OTHER, SELFPAY ==
--- NOTE | 2021-06-01 10:13 | MHC.AU.AHA ---
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 Previous Hearing Test Results: 06/11/2020 [facility] Bilateral mild to severe sensorineural hearing loss with 76% speech understanding at 85 dB HL for both ears. Ear History: Family History of Hearing Loss?: Yes Previous Ear Surgery: None Reported History of occupational noise exposure?: Yes Medical History: Medical History: Heart Problems, High Blood Pressure, Parkinson's Disease, Hypothyroidism, GERD, Chronic Pain Syndrome Allergies: Sulfa, Vancomysin, Cephalexin Medication List: Acetaminophen, Amantadine, Baclofen, Carbidopa, Diclofenac, Diltiazem HCI, Doxycycline Hyclate, Doxycycline Monohydrate, Finasteride, Fluticasone Propionate, Ibuprofen, Levothyroxine, Lidocaine Patch, Lisinopril, Multivitamin, Ordansetron HCI, Pantoprazole, Polysthylene, Pregabalin, Ropinirole, Selegiline, Tamsulosin, Tizanidine, Tramadol Hearing Instrument History- Right Ear: Qa Manager: [id number] Model: Cytheris M70-13T Serial Number: [id number] Battery Size: 13 Repair Warranty: 02/01/2023 Loss and Damage Warranty: 02/01/2023 Dispensed By: [facility] Date of Fittin11/24/2019 Hearing Instrument History- Left Ear: Qa Manager: [id number] Model: Cytheris [id number] Serial Number: [id number] Battery Size: 13 Warranty: 02/01/2023 Loss and Damage Warranty: 02/01/2023 Dispensed By: [facility] Date of Fittin11/24/2019 Otoscopy: Right Ear: Unremarkable Left Ear: Small amount of non-occluding cerumen Tympanometry: Not performed at today's visit as all previous results have indicated normal middle ear function bilaterally. Hearing Evaluation: Transducer(s) Used: Insert Earphones Bone Conduction Method: Conventional Audiometry Stimuli Used: Pure Tones Right Ear: Description of Hearing: Mild sloping to severe sensorineural hearing loss. Left Ear: Description of Hearing: Mild sloping to severe sensorineural hearing loss. Speech Recognition Threshold (SRT): Method Used: Monitored Live Voice Stimuli Used: Spondee Words Right Ear: 40 dB HL Left Ear: 40 dB HL Word Discrimination: Method: Recorded Lists Word Lists Used: NU-6 Right Ear: 80% at 80 dB HL Left Ear: 72% at 80 dB HL Most Comfortable Level (MCL): Right Ear: 80 dB HL Left Ear: 80 dB HL Comparison: Compared to the most recent evaluation: Hearing is stable. Recommendations: Hearing aid maintenance performed today. Hearing aid(s) reprogrammed with updated test results. Audiological re-evaluation in one year. Will send a reminder card. Diagnosis: Primary Diagnosis: H90.3 Bilateral Sensorineural Hearing Loss Services Performed: Comprehensive Audiological Evaluation (CPT 06350) Signature: Provider: Jeramy De Los Santos, CCC-A
== END 2021-05-27 09:01 | disposition home or self-care (01) ==
LOC: HO.SH 09:00
PROVIDERS: Visit Provider Internal Medicine
DX: Z01.118 Encounter for examination of ears and hearing with other abnormal findings (principal); H90.3 Sensorineural hearing loss, bilateral
CPT/HCPCS: 92557

== ENCOUNTER 2021-07-07 14:28 | Outpatient (REF) | payer SELFPAY | END 2021-07-07 14:29 | disposition home or self-care (01) | LOC: HO.HAP 14:28 | PROVIDERS: Visit Provider Internal Medicine | DX: Z13.89 Encounter for screening for other disorder (principal) ==

== ENCOUNTER 2021-09-16 10:26 | Outpatient (REF) | payer MEDICARE, OTHER, SELFPAY ==
--- NOTE | ~2021-09-16 | XR_ITS ---
EXAMINATION: CR X-RAY PELVIS, BILATERAL HIPS, LEFT FEMUR, LEFT TIBIA/FIBULA CLINICAL INFORMATION: Pelvic and left leg pain. COMPARISON: None TECHNIQUE: A single view of the pelvis, 2 views each of the bilateral hips, 2 views of the left femur and 2 views of the left tibia and fibula were obtained. FINDINGS: The bony pelvis is intact. Minimal bilateral hip degenerative joint changes are seen. There is no acute fracture or dislocation. Moderate degenerative changes are seen in the inferior lumbar spine. The left femur is intact. The patient is status post left knee arthroplasty showing good anatomic alignment and no evidence for hardware malfunction. The tibia and fibula are intact. The left ankle joint is intact. The soft tissues are unremarkable. XR/XR femur LT 2V IMPRESSION: 1. Minimal bilateral hip degenerative joint changes and moderate degenerative changes in the visualized inferior lumbar spine without acute abnormality. 2. No left knee hardware abnormality.
--- NOTE | ~2021-09-16 | XR_ITS ---
EXAMINATION: CR X-RAY PELVIS, BILATERAL HIPS, LEFT FEMUR, LEFT TIBIA/FIBULA CLINICAL INFORMATION: Pelvic and left leg pain. COMPARISON: None TECHNIQUE: A single view of the pelvis, 2 views each of the bilateral hips, 2 views of the left femur and 2 views of the left tibia and fibula were obtained. FINDINGS: The bony pelvis is intact. Minimal bilateral hip degenerative joint changes are seen. There is no acute fracture or dislocation. Moderate degenerative changes are seen in the inferior lumbar spine. The left femur is intact. The patient is status post left knee arthroplasty showing good anatomic alignment and no evidence for hardware malfunction. The tibia and fibula are intact. The left ankle joint is intact. The soft tissues are unremarkable. XR/XR tibia fibula LT 2V IMPRESSION: 1. Minimal bilateral hip degenerative joint changes and moderate degenerative changes in the visualized inferior lumbar spine without acute abnormality. 2. No left knee hardware abnormality.
--- NOTE | ~2021-09-16 | XR_ITS ---
EXAMINATION: CR X-RAY PELVIS, BILATERAL HIPS, LEFT FEMUR, LEFT TIBIA/FIBULA CLINICAL INFORMATION: Pelvic and left leg pain. COMPARISON: None TECHNIQUE: A single view of the pelvis, 2 views each of the bilateral hips, 2 views of the left femur and 2 views of the left tibia and fibula were obtained. FINDINGS: The bony pelvis is intact. Minimal bilateral hip degenerative joint changes are seen. There is no acute fracture or dislocation. Moderate degenerative changes are seen in the inferior lumbar spine. The left femur is intact. The patient is status post left knee arthroplasty showing good anatomic alignment and no evidence for hardware malfunction. The tibia and fibula are intact. The left ankle joint is intact. The soft tissues are unremarkable. XR/XR hip BI w PEL1V IMPRESSION: 1. Minimal bilateral hip degenerative joint changes and moderate degenerative changes in the visualized inferior lumbar spine without acute abnormality. 2. No left knee hardware abnormality.
== END 2021-09-16 10:27 | disposition home or self-care (01) ==
LOC: HO.XRAY 10:26
PROVIDERS: PCP Internal Medicine; Visit Provider Psychiatry & Neurology Neurology
DX: R26.81 Unsteadiness on feet (principal); R10.2 Pelvic and perineal pain
CPT/HCPCS: 73521; 73552; 73590

== ENCOUNTER → 2021-10-07 11:25 | Outpatient (BNVA) | payer MEDICARE, OTHER, SELFPAY | PROVIDERS: PCP Internal Medicine; Visit Provider Nurse Practitioner Family | DX: M96.1 Postlaminectomy syndrome, not elsewhere classified (principal); G89.4 Chronic pain syndrome; M17.0 Bilateral primary osteoarthritis of knee; G20 Parkinson's disease | CPT/HCPCS: 99212 ==

== ENCOUNTER → 2021-10-26 08:39 | Outpatient (BNVA) | payer MEDICARE, OTHER, SELFPAY | PROVIDERS: PCP Internal Medicine; Visit Provider Anesthesiology | DX: G89.4 Chronic pain syndrome (principal); M96.1 Postlaminectomy syndrome, not elsewhere classified; M17.0 Bilateral primary osteoarthritis of knee; G20 Parkinson's disease | CPT/HCPCS: 99212 ==

== ENCOUNTER → 2021-10-31 12:22 | Outpatient (BNVA) | payer MEDICARE, OTHER, SELFPAY | PROVIDERS: PCP Internal Medicine; Referring Provider Internal Medicine; Visit Provider Internal Medicine Cardiovascular Disease | DX: I49.1 Atrial premature depolarization (principal); I10 Essential (primary) hypertension; I45.10 Unspecified right bundle-branch block; Z79.899 Other long term (current) drug therapy | CPT/HCPCS: 99212 ==

== ENCOUNTER → 2021-11-09 14:41 | Outpatient (BNVA) | payer MEDICARE, OTHER, SELFPAY | PROVIDERS: PCP Internal Medicine; Visit Provider Anesthesiology | DX: G89.4 Chronic pain syndrome (principal); M96.1 Postlaminectomy syndrome, not elsewhere classified; M17.0 Bilateral primary osteoarthritis of knee; G20 Parkinson's disease; Z79.891 Long term (current) use of opiate analgesic | CPT/HCPCS: 99212 ==

== ENCOUNTER → 2021-12-07 11:36 | Outpatient (BNVA) | payer MEDICARE, OTHER, SELFPAY | PROVIDERS: PCP Internal Medicine; Visit Provider Anesthesiology | DX: G89.4 Chronic pain syndrome (principal); M96.1 Postlaminectomy syndrome, not elsewhere classified; M17.0 Bilateral primary osteoarthritis of knee; G20 Parkinson's disease; Z79.891 Long term (current) use of opiate analgesic | CPT/HCPCS: 99212 ==

== ENCOUNTER → 2022-01-04 13:11 | Outpatient (BNVA) | payer MEDICARE, OTHER, SELFPAY | PROVIDERS: PCP Internal Medicine; Visit Provider Anesthesiology | DX: Z51.81 Encounter for therapeutic drug level monitoring (principal); F11.20 Opioid dependence, uncomplicated | CPT/HCPCS: 99211 ==

== ENCOUNTER 2022-01-17 01:08 | Emergency (ER) | payer MEDICARE, OTHER, SELFPAY ==
--- NOTE | ~2022-01-17 | XR_ITS ---
EXAMINATION: XR CHEST CLINICAL INFORMATION: Chest pain COMPARISON: 05/21/2021 TECHNIQUE: Frontal view of the chest was obtained. FINDINGS: The lungs are clear with no focal consolidation. No evidence of pneumothorax, pulmonary edema, or pleural effusions. The cardiomediastinal contour is unremarkable. Partially visualized cervicothoracic spinal fusion hardware. No acute osseous findings are seen. XR/XR chest 1V IMPRESSION: No acute cardiopulmonary findings.
--- NOTE | 2022-01-17 01:12 | ECG_ITS ---
Test Reason : CHEST PAIN Blood Pressure : / mmHG Vent. Rate : 081 BPM Atrial Rate : 081 BPM P-R Int : 152 ms QRS Dur : 142 ms QT Int : 418 ms P-R-T Axes : 036 -65 009 degrees QTc Int : 485 ms Normal sinus rhythm Right bundle branch block Left anterior fascicular block Bifascicular block Abnormal ECG When compared with ECG of 21-MAY-2021 08:42, No significant change was found Referred By: Generic ED Physician Electronically Signed By:DOMENIC ELIZABETH
[2022-01-17 01:41] VITALS: BP 162/79; PULSE 75; RESP 16; TEMP 36.9; O2SAT 97; BMI 31.1
[2022-01-17 02:19] VITALS: BP 129/82; PULSE 71; RESP 20; TEMP 36.8; O2SAT 95
--- OUTSIDE RECORDS SUMMARY | 2022-01-17 02:28 | XMS_ITS ---
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 ALLERGIES Substance Reaction Event Type Date Status Keflex itching, SOB Drug Allergy Mar, Active Lactose (Allergy) Severe Diarrhea Drug Allergy Mar, Active Vancomycin HCl Unknown Drug Allergy Mar, Active Bactrim Unknown Drug Allergy Mar, Active ENCOUNTERS Encounter Location Date Diagnosis [address] Mar, [place] [address] Mar, Zaria ntar fascial [place] fibromatosis M7 2.2 ; [address] Pain in left keri t M79.672 ; Calcan eal spur, left foot M77.32 ; Other myositis o f left foot M60.872 and Bursitis of left foot M77.[address] Oct, 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 limit ed to breakdown of ski n L97.[address] Sep, Non -pressure chronic [place] [address] right foot with fat layer exposed L9 7.512 [facility] [address] Sep, Ing rowing nail L60.0 [place] [address] [facility] [address] Jun, [place] [address] [facility] [address] [address] Jun, Abscess o f toe, right [place] L02.611 and Cell ulitis [address] of right toe L03 .[address] Jan, Abs cess of toe, right [place] L02.611 and Edilma lulitis [address] of right toe L03 .[address] Oct, Non -pressure chronic [place] [address] right foot limit ed to breakdown of ski n L97.[address] Sep, Non -pressure chronic [place] [address] right foot with fat layer exposed L9 7.[address] Sep, Ing rowing nail L60.0 [place] [address] Sep, Ing rowing nail L60.0 [place] [address] Jul, Abs cess of toe, right [place] L02.611 [address] [facility] [address] [facility] [address] Jul, [place] [address] Jul, [place] [address] [facility] [address] [address] Jul, Abscess o f toe, left [place] L02.612 and Cell ulitis [address] of left toe L03. [address] [address] Nov, [place] [address] Sep, [place] [address] [facility] [address] August, Abs cess of toe, right [place] L02.[address] [address] [facility] [address] Oct, Par onychia 681.11 [place] [address] Jul, Par onychia 681.11 and [facility] [place] [facility] - Toe s 681.10 [address] [facility] Apr, Paronychia 681.1 1 [place] [address] Celluit is - Toes 681.[address] Apr, [place] [address] Mar, [facility] [place] [address] Mar, [facility] [address] Mar, Par onychia 681.11 and [facility] [place] [facility] - Toe s 681.10 [address] IMMUNIZATIONS Vaccine Route Administration Date Status COVID-19 [employer] Unknown Mar 04, 2021 Administered Influenza Unknown Jan 16, 2017 Administered SOCIAL HISTORY Qualifiers Date Former Smoker 2000 REASON FOR REFERRAL Referring Provider First Name Enrrique Referring Provider Last Name Irvin Referred Organization [facility] Referred Provider Black Seymour Referred Address [address] [place] [phone] Referred Provider Specialty Podiatry Referring Provider First Name Black Referring Provider Last Name Dawn Referring Provider Specialty Podiatry Referring Provider email Referred Organization [facility] Referred Provider Black Seymour Referred Address [address] [place] [phone] Referred Provider Specialty Podiatry FUNCTIONAL STATUS PLAN OF CARE Activity Details Referral [address] [place] [address] [place], [address], [email or web address], Referral [address] [place] [address] [place], [address], [email or web address], [phone] Pending Test X ray : Foot, left 3V Future/Pending Procedure 85321- Debride <25 sq cm Future/Pending Procedure 04359-CEPIRTQ SKIN/TISSUE Future/Pending Procedure 59156-WAY Future/Pending Procedure 83015 I&D ABSCESS- SIMPLE,SI NGLE Future/Pending Procedure 73587 I&D ABSCESS- SIMPLE,SI NGLE Future/Pending Procedure 82361- Debride <25 sq cm Future/Pending Procedure 67829-MYWGPFI SKIN/TISSUE Future/Pending Procedure 01053-WKS Future/Pending Procedure 52840-Ivelpawe Plate Future/Pending Procedure 26141 I&D ABSCESS- SIMPLE,SI NGLE Future/Pending Procedure 43838 I&D ABSCESS- SIMPLE,SI NGLE Future/Pending Procedure 11129 I&D ABSCESS- SIMPLE,SI NGLE Future/Pending Procedure 83874 I&D ABSCESS- SIMPLE,SI NGLE Future/Pending Procedure 20548 I&D ABSCESS- SIMPLE,SI NGLE Future/Pending Procedure 51846 I&D ABSCESS- SIMPLE,SI NGLE Future/Pending Procedure 21642 I&D ABSCESS- SIMPLE,SI NGLE VITAL SIGNS Height 5 ft 9 in in 2021-03-18 Weight 202 lbs 2021-03-18 BMI 29.83 kg/m2 2021-03-18 Heart Rate 97 /min 2019-06-23 Blood pressure systolic 118 mm Hg 2021-03-18 Blood pressure diastolic 76 mm Hg 2021-03-18 MEDICATIONS Medication Instructions Dosage Frequency Start End Duration Statu s Date Date VoLumen Not-Taki ng Stool Softener Active Synthroid .05 MCG Orally Once a 1 tablet 24h Not-Taki day on an ng empty stomach in the morning Finasteride 5 MG Orally Once a 1 tablet 24h Active day Pantoprazole Sodium Orally Once a 1 tablet 24h 30 da y(s) Active 40 MG day Prochlorperazine Active Butrans Not-Taki ng Valium 5 MG Orally Twice a 1 tablet 12h Not- Taki day as needed ng Levothyroxine Orally Once a 1 tablet 24h 30 day(s) A ctive Sodium 50 MCG day on an empty stomach in the morning Tylenol Arthritis Active Pain Carbidopa-Levodopa Activ e Morphine 30mg by mouth four 1 tab 6h Not- Taki times a day ng Tamsulosin HCl Active Multivitamin Active Diclofenac as Active Sod-Occlusive Dress directed 1 % Dilaudid 2 MG/ML Injection every 1 ml as 4h Not-Taki 4 hrs needed ng Lidocaine Active Protonix 40 MG Orally Once a 1 tablet 24h No t-Taki day ng oxyCODONE HCl Not-Taki ng Cymbalta Active Morphine Sulfate ER Orally every 12 1 tablet 12h Not-Taki 60 MG hrs ng rOPINIRole HCl 4 MG Orally Once a 1 tablet 1 24h 30 day(s) Not-Taki day to 3 hours ng before bedtime dilTIAZem HCl ER Orally Once a 1 capsule 24h 30 day( s) Active Beads 240 MG day Amantadine HCl Active Ketamine HCl Active ibuprofen Active Azithromycin 250 MG Orally Once a 2 tablets 24h 5 da y(s) Active day on the first day, then 1 tablet daily for 4 days diazePAM Not-Taki ng AndroGel Not-Taki ng MiraLax Not-Taki ng Lisinopril Active PROCEDURES Procedure Date Ordered Result Body Site DEBRIDE SKIN/TISSUE October 07, 2019 DRAINAGE OF SKIN ABSCESS Apr 23, 2014 DRAINAGE OF SKIN ABSCESS August 04, 2016 REMOVAL OF NAIL BED September 23, 2019 DRAINAGE OF SKIN ABSCESS Mar 17, 2014 DRAINAGE OF SKIN ABSCESS Jan 21, 2019 DRAINAGE OF SKIN ABSCESS 2014 DRAINAGE OF SKIN ABSCESS July 17, 2014 Avulsion Plate September 18, 2017 DEBRIDE SKIN/TISSUE October 09, 2017 DRAINAGE OF SKIN ABSCESS June 23, 2019 DRAINAGE OF SKIN ABSCESS July 27, 2016 ACTIVE WOUND CARE/20 CM OR < October 23, 2017 ACTIVE WOUND CARE/20 CM OR < October 21, 2019 DRAINAGE OF SKIN ABSCESS September 10, 2015 STERILE TRAY September 23, 2019 STERILE TRAY September 25, 2017 REMOVAL OF NAIL BED September 25, 2017 X-RAY EXAM OF LEFT FOOT 3V Mar 18, 2021 RESULTS No Results REASON FOR VISIT Insurance Providers [employer] Member Patient Patient Patient Patient Patient Subscriber Subscriber Subscriber Group Insurance Plan Plan Plan Plan ID Relationship Address Phone Name Date of ID Name Date of No Type Insurance Insurance Insurance Coverage to Subscriber Address Phone Name Dates Medicare National [id number] Medicare self Kevan [id number] [facility] [address] [place] [address] Unicare [phone] Un[employer]are self Kevan [id number] [address] [facility] [phone] Health New self Kevan [id number] [place] [address] [facility] [address] [facility] [place] [address] MEDICAL (GENERAL) HISTORY Type Description Date Medical History Arthritis Medical History Back,Hip,and Knee pain Medical History Chicken pox Medical History Measles Medical History Mumps Medical History Hypertension Medical History Reflux Medical History Thyroid disorder Medical History Parkinsons Disease Surgical History foot surgery Surgical History cholecystectomy Surgical History hernia Surgical History knee surgery Surgical History neck surgery x3 2013,03/15/21 Surgical History left knee replacement 01/2016 Surgical History Back surgery
--- OUTSIDE RECORDS SUMMARY | 2022-01-17 02:28 | XMS_ITS | Continuity of Care Document ---
:1950 Author Organization [facility] Address [address] [place] [address]- Care Team Providers Name Role Phone Enrrique Bryan MD [id number]s): 03/31/20 - 04/01/[address] [address]- Encounter Diagnosis Neck pain (Final) - 04/01/20 Discharge Disposition: Disch/Trans to a [facility] [place] Attending Physician: Heather Oliveira MD Admitting Physician: Heather Oliveira MD Referring Physician: Not on Staff, Referring MD Allergies, Adverse Reactions, Alerts Substance Reaction Severity Status vancomycin hives Active sulfa drugs Active ceFAZolin hives Active Medications Aleve Caplet = 220 mg, By Mouth, Every 8 hours, 0 Refills, Maintenance, 01/28/15 11:10:54 Start Date: 01/28/15 Status: Ordereddiazepam 5 mg oral tablet 1 tablet = 5 mg, By Mouth, 2 times a day, 0 Refills, Maintenance, 02/19/15 13:00:41 Start Date: 02/19/15 Status: OrderedErythromycin Daily, 0 Refills, Maintenance, 03/19/15 8:49:42 Start Date: 03/19/15 Status: OrderedHYDROmorphone 2 mg oral tablet 6 mg, Tablet, By Mouth, Every 3 hours, PRN for Pain , Moderate, Routine, 04/01/20 5:02:00 EST Start Date: 04/01/20 Stop Date: 04/01/20 Status: Discontinuedlevothyroxine 0.05 mg oral tablet 1 tablet = 50 mcg, By Mouth, Daily, 0 Refills, Maintenance Start Date: 03/28/12 Status: OrderedLidoderm 5% film 1 patch, Topically, Daily, 0 Refills, Maintenance, 01/28/15 11:10:34 Start Date: 01/28/15 Status: Orderedlisinopril 10 mg oral tablet 1 tablet = 10 mg, By Mouth, Daily, 0 Refills, Maintenance Start Date: 03/28/12 Status: OrderedoxyCODONE 5 mg oral tablet 1 tablet = 5 mg, By Mouth, Every 6 hours, PRN as needed for pain, PCP will prescribe 10 tabs/month, 0 Refills, Maintenance, 03/19/15 8:52:35 Start Date: 03/19/15 Status: OrderedProtonix 40 mg oral enteric coated tablet 1 tablet = 40 mg, By Mouth, Daily, 0 Refills, Maintenance Start Date: 03/28/12 Status: OrderedRobitussin-CF 10 mL, By Mouth, Every 4 hours, 0 Refills, Maintenance, 03/19/15 8:50:11 Start Date: 03/19/15 Status: OrderedTylenol Extra Strength 500 mg oral tablet 2 tablet = 1,000 mg, By Mouth, 3 times a day, PRN as needed for pain, 0 Refills, Maintenance Start Date: 03/28/12 Status: Ordered Problem List Condition Effective Dates Status Health Status Informant Limitation due to Active disability(Confirmed)1 Drug or alcohol risk assessment or Active counseling(Confirmed)2 History of surgery(Confirmed)3 Active Myofascial pain(Confirmed) Active Neck pain(Confirmed) Active 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) 1initial Oswestry Disability Index: 44% ( severe disability ) on 02/19/15; initial Neck Disability Index:46.6% on 02/19/15; initial [place]: 6 on SOAPP-R: 10 on History of posterior approach cervical spine operations, most recently multilevel decompression and fusion with hardware removal and subsequent replacement, notes regarding laminectomy C3-C6, bilateralposterior fusion hardware with screws/rods extending C2-T2 Results Orders for Microbiology Reports Name Date Blood Culture 03/31/20 Blood Culture #2 03/31/20 Microbiology Reports TEST:Blood Culture STATUS:Unauthenticated BODY SITE: SOURCE:Blood COLLECTED DATE/TIME:03/31/20 11:10 PMBlood Culture SPECIMEN DESCRIPTION : BLOOD LFA SPECIAL REQUESTS : CRITICAL VALUE CALLED AND VERIFIED BY READBACK FOR: GRAM POSITIVE COCCI CALLED TO [id number] BY velingo 3535 CULTURE : GRAM POSITIVE COCCI S. aureus was identified by multi-plex PCR. MecA NOT detected. The absence of the mecA gene is associated with susceptibility to methicillin (MSSA). REPORT STATUS : PRELIMINARY REPORT TEST:Blood Culture, Second Order STATUS:Unauthenticated BODY SITE: SOURCE:Blood COLLECTED DATE/TIME:03/31/20 11:10 PMBlood Culture, Second Order SPECIMEN DESCRIPTION : BLOOD RFA SPECIAL REQUESTS : CRITICAL VALUE CALLED AND VERIFIED BY READBACK FOR: GRAM POSITIVE COCCI CALLED TO [id number] BY velingo 3535 CULTURE : GRAM POSITIVE COCCI REPORT STATUS : PRELIMINARY REPORT Radiology Reports Exam Date Time Procedure Performing Provider Status 04/01/20 12:08 AM Chest 2 Views Frontal and Lat TaylorVilla garcia on; Auth (Verified) Notes:(Chest 2 Views Frontal and Lat) Reason For Exam: post op. leukocytosis, ?pna;Other:RESULT: Chest 2 Views Frontal and Lat Chest 2 Views Frontal and Lat INDICATION: pt [facility] with increasing nausea, difficulty walking and AMSper x 2 weeks. pt had a disc fusion in February. COMPARISON: CT thoracic spine 04/01/2020. FINDINGS: LINES AND TUBES: A line is seen overlying the right paraspinal soft tissues and in the dorsal soft tissues, presumably a spinal catheter. LUNGS AND PLEURA: Mild left bibasilar atelectasis. Normal pulmonary vascularity. No pleural effusion. No pneumothorax. HEART, MEDIASTINUM AND DOMINIC: Heart is normal in size. Normal upper mediastinal and hilar contour. BONES AND SOFT TISSUES: Extensive hardware in the cervicothoracic spine. IMPRESSION: Left basilar atelectasis. I have personally reviewed the images and I agree with this report. WSN: [id number] Ordering Physician: Patricia Lawler Dictated By: Cherry Dasilva MD Dictated Date/Time: 04/01/20 8:06 am Reviewed By: Mike Cheek MD Signed By: Mike Cheek MD Signed Date/Time: 04/01/20 8:11 am Transcribed By: ERNESTINA Transcribed Date/Time: 04/01/20 7:56 am Vital Signs Most recent to oldest 1 2 3 [Reference Range]: Oxygen Saturation [94-100 97 % 95 % 94 % %] (04/01/20 10:46 AM) (04/01/20 5:31 AM) (04/01/20 3:11 AM) Pulse Rate [55-90 bpm] 110 bpm 108 bpm 102 bpm *H* *H* *H* (04/01/20 10:46 AM) (04/01/20 5:31 AM) (04/01/20 3:11 AM) Blood Pressure 180/85 mm Hg 154/67 mm Hg 137/67 mm Hg [90-138/55-84 mm Hg] *H* *H* (04/01/20 3 :11 AM) (04/01/20 10:46 AM) (04/01/20 5:31 AM) Respiratory Rate [16-30 17 br/min 17 br/min 17 br/mi n br/min] (04/01/20 12:21 PM) (04/01/20 10:46 AM) ( 0 9:38 AM) Temperature [96.8-100.4 98.6 DegF 98.7 DegF 98.3 Deg F DegF] (04/01/20 10:46 AM) (04/01/20 5:31 AM) (04/01/20 3:11 AM) Mode of Delivery (Oxygen) Room air Room air Room a ir (04/01/20 10:46 AM) (04/01/20 5:31 AM) (04/01/20 3:11 AM) Blood pressure sites Arm, right Arm, right Arm, right (04/01/20 5:31 AM) (04/01/20 3:11 AM) (04/01/20 3:09 AM) Temperature Route Oral Oral Oral (04/01/20 10:46 AM) (04/01/20 5:31 AM) (04/01/20 3:11 AM) Social History Social History Type Response Smoking Status Former smoker; Other: quit 2 0 years ago; entered on: 02/19/15 Sex
[2022-01-17 02:31] LABS: Basophils Absolute Auto 0.1 X10*3/uL (0.0-0.2); Basophils Percent Auto 1.3 % (0-2); Eosinophils Absolute Auto 0.3 X10*3/uL (0.0-0.4); Eosinophils Percent Auto 4.8 % (0-4); Hematocrit 45.1 % (42.0-52.0); Imm Gran Abs Auto 0.03 X10*3/uL (0.00-0.03); Imm Gran Pct Auto 0.5 % (0.0-0.4); Lymphocytes Absolute Auto 1.1 X10*3/uL (1.2-4.9); Lymphocytes Percent Auto 17.8 % (20-40); MANUAL DIFF FLAG NO; Mean Corpuscular HGB Conc 33.3 g/dl (31.0-36.0); Mean Corpuscular Hemoglobin 33.2 pg (27.0-33.0); Mean Corpuscular Volume 99.8 fL (80.0-98.0); Mean Platelet Volume 8.7 fL (9.4-12.4); Monocytes Absolute Auto 0.5 X10*3/uL (0.1-1.2); Monocytes Percent Auto 7.9 % (2-11); Neutrophils Absolute Auto 4.2 x10*3/uL (2.0-8.3); Neutrophils Percent Auto 67.7 % (45-73); Platelet Count 163 X10*3/uL (160-400); Red Blood Count 4.52 X10*6/uL (4.60-5.80); Red Cell Distribution Width 12.5 % (11.0-16.0); White Blood Count 6.2 X10*3/uL (4.8-10.8)
[2022-01-17 02:34] LABS: COVID-19 Test Negative (Negative); IDNOW Serial# 9DB6401D
[2022-01-17 02:51] LABS: B Type Natriuretic Peptide 30 pg/mL (<100); Troponin-I High Sensitivity < 3.5 ng/L (<3.5-35.0)
[2022-01-17 02:54] LABS: Appearance Urine Clear; Color Urine Yellow; Glucose Urine UA Negative (Negative); Leukocyte Esterase Urine Negative (Negative); Nitrite Urine Negative (Negative); PH 5.5 (5.0-9.0); Specific Gravity - Urine 1.025 (1.005-1.025); Urine Blood Negative (Negative); Urine Ketones 40 mg/dL (Negative); Urine Protein Negative (Neg-Trace)
[2022-01-17 02:59] LABS: Anion Gap 15 (12-20); Blood Urea Nitrogen 17 mg/dL (9-16); Carbon Dioxide 28 mmol/L (22-29); Chloride 104 mmol/L (96-108); Creatinine Clr Calc Pharmacy 96.6; Estimated Glomerular Filt Rate > 60; Glucose Random 91 mg/dL (60-115); Potassium 3.6 mmol/L (3.3-5.1); Sodium 143 mmol/L (135-145)
[2022-01-17 04:00] VITALS: BP 129/76; PULSE 71; RESP 20; TEMP 36.4; O2SAT 95
[2022-01-17 05:29] VITALS: BP 137/73; PULSE 74; RESP 16; TEMP 36.1; O2SAT 95
[2022-01-17 06:16] LABS: Troponin-I High Sensitivity 3.9 ng/L (<3.5-35.0)
--- NOTE | 2022-01-17 06:31 | ED_ITS ---
HPI - Chest Pain General Chief Complaint: Chest Pain Stated Complaint: trouble breathing Time Seen by Provider: 01/17/22 01:56 History of Present Illness HPI narrative: 71-year-old male with history of Parkinson's came in for evaluation of palpitation for the past 2 weeks. Patient describes the symptoms as intermittent feeling of palpitation followed by short time of left-side chest pain symptoms started about 2 weeks ago return to the ED today because he feels it is getting worse, patient also admit that his been feeling stressed out because his Parkinson's disease is worsening. Patient had a continuous cardiac monitoring while he is in the ED which showed no dysrhythmia when patient was complaining of palpitation while he was on the monitor. 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 Related Data Home Medications Medication Instructions Recorded Confirmed acetaminophen 650 mg 650 mg PO Q8H 01/21/20 01/04/22 tablet,extended release (Tylenol Arthritis Pain) carbidopa 25 mg-levodopa 100 mg 1 tab PO QID 01/21/20 01/04/22 tablet diclofenac sodium 1 % topical gel 2 g topical QID 01/21/20 01/04/22 finasteride 5 mg tablet 5 mg PO DAILY 01/21/20 01/04/22 ibuprofen 200 mg tablet 200 mg PO Q6H PRN 01/21/20 01/04/22 levothyroxine 50 mcg tablet 50 mcg PO DAILY 01/21/20 01/04/22 lidocaine 5 % topical patch 1 patch topical DAILY 01/21/20 01/04/22 lisinopril 10 mg tablet 10 mg PO DAILY 01/21/20 01/04/22 multivitamin (Daily Multi-Vitamin 1 tab PO DAILY 01/21/20 01/04/22 tablet) polyethylene glycol 3350 17 17 g PO DAILY 01/21/20 01/04/22 gram/dose oral powder (Miralax) tamsulosin 0.4 mg capsule 0.4 mg PO BEDTIME 01/21/20 01/04/22 ondansetron HCl 4 mg tablet 4 mg PO Q8H 09/15/20 01/04/22 pantoprazole 40 mg tablet,delayed 40 mg PO BID 09/15/20 01/04/22 release tizanidine 2 mg tablet 2 mg PO BID PRN 09/15/20 01/04/22 ropinirole 3 mg tablet 3 mg PO 10/21/20 01/04/22 selegiline HCl 5 mg tablet 5 mg PO BID 10/21/20 01/04/22 amantadine HCl 100 mg capsule 100 mg PO TID 10/27/20 01/04/22 fluticasone propionate 50 spray intranasal 10/27/20 01/04/22 mcg/actuation nasal spray,suspension pregabalin 75 mg capsule mg PO 10/27/20 01/04/22 tramadol 50 mg tablet 50 mg PO DAILY PRN 10/27/20 01/04/22 donepezil 10 mg tablet 0 mg PO 10/07/21 01/04/22 duloxetine 60 mg capsule,delayed 60 mg PO DAILY 10/07/21 01/04/22 release memantine 10 mg tablet 10 mg PO BID 10/07/21 01/04/22 pregabalin 300 mg capsule 300 mg PO BID 10/07/21 01/04/22 trazodone 50 mg tablet 50 mg PO BEDTIME 10/07/21 01/04/22 Previous Rx's Medication Instructions Recorded baclofen 10 mg tablet 10 mg PO TID 30 days #90 tabs 02/21/21 diltiazem HCl 240 mg 240 mg PO DAILY 90 days #90 caps 04/26/21 capsule,extended release 24 hr baclofen 20 mg tablet 20 mg PO BID PRN pain (scale score 10/04/21 4-6) 30 days #60 tabs tizanidine 4 mg tablet 4 mg PO TID PRN muscle spasticity 10/04/21 30 days #90 tabs oxycodone 5 mg tablet 5 mg PO TID PRN pain 30 days #90 12/23/21 tabs Allergies Allergy/AdvReac Type Severity Reaction Status Date / Time Sulfa (Sulfonamide Allergy Severe HIVES/DIFF. Verified 01/04/22 13:46 Antibiotics) BREATHING vancomycin [VANCOMYCIN] Allergy Severe SHORTNESS Verified 01/04/22 13:46 OF BREATH cephalexin [CEPHALEXIN] Allergy Intermediate SHORTNESS Verified 01/04/22 13:46 OF BREATH DAIRY PRODUCTS AdvReac Intermediate GI Uncoded 01/04/22 13:46 UPSET/DIARRHEA Review of Systems Review of Systems: All other systems are reviewed and are negative Constitutional: Reports as per HPI and Reports no additional constitutional complaints Eyes: Reports as per HPI and Reports no additional eye complaints Reports system reviewed and no additional complaints, except as documented Cardiovascular: Reports as per HPI and Reports no additional cardiovascular complaints Respiratory: Reports as per HPI and Reports no additional respiratory complaints Gastrointestinal: Reports as per HPI and Reports no additional gastrointestinal complaints Genitourinary: Reports no additional female genitourinary complaints Musculoskeletal: Reports no additional musculoskeletal complaints Skin/Breast: Reports system reviewed and no additional complaints, except as docu Psychiatric: Reports no additional psychiatric complaints Endocrine: Reports no additional endocrine complaints Hematologic/Lymphatic: Reports no additional hematologic/lymphatic complaints Allergic/Immunologic: Reports no additional allergic/immunologic complaints Reports system reviewed and no additional complaints, except as documented and Reports Abnormal speech present [facility] Past Medical History Medical History Bilateral primary osteoarthritis of knee BPH (benign prostatic hyperplasia) Chronic pain syndrome Failed back syndrome of cervical spine GERD (gastroesophageal reflux disease) Hard of hearing HTN (hypertension) Hypertensive heart disease Hypothyroidism PAC (premature atrial contraction) Parkinsons Restless leg syndrome Social History Social History Alcohol intake: never Patient Tobacco Use Status: Never used Tobacco Advance Directives: No Advance Directives Information Provided: Yes Advance Directives Date on File: 01/19/20 Physical Exam Vital Signs: Vital Signs: Last Vital Signs Temp 97.0 F 01/17/22 05:29 Pulse 74 01/17/22 05:29 Resp 16 01/17/22 05:29 BP 137/73 01/17/22 05:29 Pulse Ox 95 01/17/22 05:29 O2 Del Method 01/17/22 05:29 BMI result Body Mass Index 31.1 Vital signs have been reviewed as appeared to be correct. Blood pressure normal. Heart rate normal. Respiration rate normal. Temperature normal. Oxygen saturation normal. Appearance: Alert. Oriented X3. No acute distress. Appear anxious. Head: Normal external exam. Normocephalic. Atraumatic. No Campos signs noted. No raccoon eyes noted Eyes: PERRLA. EOMI. Conjunctiva and sclera normal. Eyelids normal. ENT: TM's Normal. Pharynx normal. Uvula midline. Moist mucous membranes. No trismus noted. No drooling noted. No muffled voice noted. Neck: Normal inspection. Neck supple. FROM. No adenopathy. Thyroid Normal. No meningeal signs. No neck mass noted. CVS: Normal heart rate and rhythm. Heart sound normal. No murmurs noted. Pulses normal throughout. Respiratory: No respiratory distress. Painless inspiration. Breath sounds normal. No wheezes/rales/rhonchi noted. Chest nontender. No accessory muscle usage noted or decreased air movement noted. Abdomen: Soft and nontender. Bowel sounds normal in all 4 quadrants. No distention noted. No organomegaly noted. No visible injury noted. Back: No CVA tenderness. Full range of motion noted. Skin: Skin warm and dry. Normal skin color. Normal skin turgor. No rashes/lesions/lacerations noted. Extremities: No lower extremity edema. Extremities exhibit normal range of motion. Extremities nontender. Neuro: Oriented X 3. Cranial nerve exam: II-XII are grossly intact No motor deficit. No sensory deficit. Reflexes normal. Course Course Course Narrative: 71-year-old male came in for subjective intermittent palpitation for the last 2 weeks, unremarkable workup in the emergency department. Will reassure the patient and discharge to follow-up with PCP and Dr. Collins as needed. MDM - Chest Pain Medical Records Data Attestation: I reviewed the patient's medical records. Lab Data Attestation: I reviewed the patient's lab results. Result diagrams: 01/17/22 02:26 01/17/22 02:26 Labs: Lab Results 01/17/22 01/17/22 01/17/22 Range/Units 02:06 02:26 02:26 WBC 6.2 (4.8-10.8) X10*3/uL RBC 4.52 L (4.60-5.80) X10*6/uL Hgb 15.0 (14.0-18.0) g/dl Hct 45.1 (42.0-52.0) % MCV 99.8 H (80.0-98.0) fL MCH 33.2 H (27.0-33.0) pg MCHC 33.3 (31.0-36.0) g/dl RDW 12.5 (11.0-16.0) % Plt Count 163 (160-400) X10*3/uL MPV 8.7 L (9.4-12.4) fL Immature Gran % (Auto) 0.5 H (0.0-0.4) % Neut % (Auto) 67.7 (45-73) % Lymph % (Auto) 17.8 L (20-40) % [place] % (Auto) 7.9 (2-11) % Eos % (Auto) 4.8 H (0-4) % Baso % (Auto) 1.3 (0-2) % Lymph # (Auto) 1.1 L (1.2-4.9) X10*3/uL [place] # (Auto) 0.5 (0.1-1.2) X10*3/uL Eos # (Auto) 0.3 (0.0-0.4) X10*3/uL Baso # (Auto) 0.1 (0.0-0.2) X10*3/uL Abs Immat Gran (auto) 0.03 (0.00-0.03) X10*3/uL Absolute Neuts (auto) 4.2 (2.0-8.3) x10*3/uL Absolute Nucleated RBC 0.000 (0.0-0.012) X10*3/uL Nucleated RBC % (auto) 0.0 (0.0-0.2) /100WBC Sodium 143 (135-145) mmol/L Potassium 3.6 (3.3-5.1) mmol/L Chloride 104 (96-108) mmol/L Carbon Dioxide 28 (22-29) mmol/L Anion Gap 15 (12-20) BUN 17 H (9-16) mg/dL Creatinine 0.74 (0.5-1.4) mg/dL Estim Creat Clear Calc 96.6 Estimated GFR > 60 Random Glucose 91 (60-115) mg/dL Calcium 9.0 (8.4-10.2) mg/dL Troponin I High Sens (<3.5-35.0) ng/L B-Natriuretic Peptide (<100) pg/mL Urine Color Urine Appearance Urine pH (5.0-9.0) Ur Specific [place] (1.005-1.025) Urine Protein (Neg-Trace) mg/dL Urine Glucose (UA) (Negative) mg/dL Urine Ketones (Negative) mg/dL Urine Blood (Negative) Urine Nitrite (Negative) Ur Leukocyte Esterase (Negative) COVID-19 (NITO) Negative (Negative) COVID-19 Clin Com See Note 01/17/22 01/17/22 01/17/22 Range/Units 02:26 02:26 02:47 WBC (4.8-10.8) X10*3/uL RBC (4.60-5.80) X10*6/uL Hgb (14.0-18.0) g/dl Hct (42.0-52.0) % MCV (80.0-98.0) fL MCH (27.0-33.0) pg MCHC (31.0-36.0) g/dl RDW (11.0-16.0) % Plt Count (160-400) X10*3/uL MPV (9.4-12.4) fL Immature Gran % (Auto) (0.0-0.4) % Neut % (Auto) (45-73) % Lymph % (Auto) (20-40) % [place] % (Auto) (2-11) % Eos % (Auto) (0-4) % Baso % (Auto) (0-2) % Lymph # (Auto) (1.2-4.9) X10*3/uL [place] # (Auto) (0.1-1.2) X10*3/uL Eos # (Auto) (0.0-0.4) X10*3/uL Baso # (Auto) (0.0-0.2) X10*3/uL Abs Immat Gran (auto) (0.00-0.03) X10*3/uL Absolute Neuts (auto) (2.0-8.3) x10*3/uL Absolute Nucleated RBC (0.0-0.012) X10*3/uL Nucleated RBC % (auto) (0.0-0.2) /100WBC Sodium (135-145) mmol/L Potassium (3.3-5.1) mmol/L Chloride (96-108) mmol/L Carbon Dioxide (22-29) mmol/L Anion Gap (12-20) BUN (9-16) mg/dL Creatinine (0.5-1.4) mg/dL Estim Creat Clear Calc Estimated GFR Random Glucose (60-115) mg/dL Calcium (8.4-10.2) mg/dL Troponin I High Sens < 3.5 (<3.5-35.0) ng/L B-Natriuretic Peptide 30 (<100) pg/mL Urine Color Yellow Urine Appearance Clear Urine pH 5.5 (5.0-9.0) Ur Specific [place] 1.025 (1.005-1.025) Urine Protein Negative (Neg-Trace) mg/dL Urine Glucose (UA) Negative (Negative) mg/dL Urine Ketones 40 (Negative) mg/dL Urine Blood Negative (Negative) Urine Nitrite Negative (Negative) Ur Leukocyte Esterase Negative (Negative) COVID-19 (NITO) (Negative) COVID-19 Clin Com 01/17/22 Range/Units 05:48 WBC (4.8-10.8) X10*3/uL RBC (4.60-5.80) X10*6/uL Hgb (14.0-18.0) g/dl Hct (42.0-52.0) % MCV (80.0-98.0) fL MCH (27.0-33.0) pg MCHC (31.0-36.0) g/dl RDW (11.0-16.0) % Plt Count (160-400) X10*3/uL MPV (9.4-12.4) fL Immature Gran % (Auto) (0.0-0.4) % Neut % (Auto) (45-73) % Lymph % (Auto) (20-40) % [place] % (Auto) (2-11) % Eos % (Auto) (0-4) % Baso % (Auto) (0-2) % Lymph # (Auto) (1.2-4.9) X10*3/uL [place] # (Auto) (0.1-1.2) X10*3/uL Eos # (Auto) (0.0-0.4) X10*3/uL Baso # (Auto) (0.0-0.2) X10*3/uL Abs Immat Gran (auto) (0.00-0.03) X10*3/uL Absolute Neuts (auto) (2.0-8.3) x10*3/uL Absolute Nucleated RBC (0.0-0.012) X10*3/uL Nucleated RBC % (auto) (0.0-0.2) /100WBC Sodium (135-145) mmol/L Potassium (3.3-5.1) mmol/L Chloride (96-108) mmol/L Carbon Dioxide (22-29) mmol/L Anion Gap (12-20) BUN (9-16) mg/dL Creatinine (0.5-1.4) mg/dL Estim Creat Clear Calc Estimated GFR Random Glucose (60-115) mg/dL Calcium (8.4-10.2) mg/dL Troponin I High Sens 3.9 (<3.5-35.0) ng/L B-Natriuretic Peptide (<100) pg/mL Urine Color Urine Appearance Urine pH (5.0-9.0) Ur Specific [place] (1.005-1.025) Urine Protein (Neg-Trace) mg/dL Urine Glucose (UA) (Negative) mg/dL Urine Ketones (Negative) mg/dL Urine Blood (Negative) Urine Nitrite (Negative) Ur Leukocyte Esterase (Negative) COVID-19 (NITO) (Negative) COVID-19 Clin Com Imaging Data Chest x-ray: Attestation: I personally reviewed and interpreted this imaging study as follows: Radiologist's impression: No acute cardiopulmonary disease. ECG Data ECG #1: Attestation: I personally reviewed and interpreted this ECG as follows: Interpretation: Normal sinus rhythm at 81 beats per minutes, right bundle branch block, no change from previous EKG. Discharge Plan Discharge Clinical Impression: Palpitation, Anxiety Patient Disposition: Home, Self-Care Instructions: Heart Palpitations (ED) Prescriptions: No Action baclofen 10 mg tablet 10 mg PO TID 30 Days Qty: 90 8RF diltiazem HCl 240 mg capsule,extended release 24hr 240 mg PO DAILY 90 Days Qty: 90 3RF baclofen 20 mg tablet 20 mg PO BID PRN (Reason: pain (scale score 4-6)) 30 Days Qty: 60 11RF tizanidine 4 mg tablet 4 mg PO TID PRN (Reason: muscle spasticity) 30 Days Qty: 90 11RF oxycodone 5 mg tablet 5 mg PO TID PRN (Reason: pain) 30 Days Qty: 90 0RF Rx Instructions: Partial Fill only upon patient request. pantoprazole 40 mg tablet,delayed release (DR/EC) 40 mg PO BID tizanidine 2 mg tablet 2 mg PO BID PRN ondansetron HCl 4 mg tablet 4 mg PO Q8H ropinirole 3 mg tablet 3 mg PO Rx Instructions: starting to reduce to stop selegiline HCl 5 mg tablet 5 mg PO BID Rx Instructions: administer with breakfast and lunch levothyroxine 50 mcg tablet 50 mcg PO DAILY lidocaine 5 % adhesive patch,medicated 1 patch topical DAILY Rx Instructions: leave on most painful area for up to 12 hrs diclofenac sodium 1 % gel 2 g topical QID Rx Instructions: apply to single elbow, wrist or hand; for hand includes palm/fingers/back of hand carbidopa-levodopa 25-100 mg tablet 1 tab PO QID tamsulosin 0.4 mg capsule 0.4 mg PO BEDTIME lisinopril 10 mg tablet 10 mg PO DAILY polyethylene glycol 3350 [Miralax] 17 gram/dose powder 17 g PO DAILY ibuprofen 200 mg tablet 200 mg PO Q6H PRN finasteride 5 mg tablet 5 mg PO DAILY multivitamin [Daily Multi-Vitamin] Tablet 1 tab PO DAILY acetaminophen [Tylenol Arthritis Pain] 650 mg tablet extended release 650 mg PO Q8H amantadine HCl 100 mg capsule 100 mg PO TID tramadol 50 mg tablet 50 mg PO DAILY PRN fluticasone propionate 50 mcg/actuation spray,suspension intranasal pregabalin 75 mg capsule PO duloxetine 60 mg capsule,delayed release(DR/EC) 60 mg PO DAILY pregabalin 300 mg capsule 300 mg PO BID memantine 10 mg tablet 10 mg PO BID trazodone 50 mg tablet 50 mg PO BEDTIME donepezil 10 mg tablet 0 mg PO Referrals: Po,Jazmin Cherry MD [Primary Care Provider] - Carlos A Collins MD [Physician] -
== END 2022-01-17 07:29 | disposition home or self-care (01) ==
PROVIDERS: Emergency Provider Emergency Medicine; PCP Internal Medicine
DX: R07.89 Other chest pain (principal); R00.2 Palpitations; F41.1 Generalized anxiety disorder; R06.02 Shortness of breath; F43.0 Acute stress reaction; Z20.822 Contact with and (suspected) exposure to COVID-19; Z79.899 Other long term (current) drug therapy
CPT/HCPCS: 36415; 71045; 80048; 81003; 83880; 84484; 85025; 87635; 93005; 99283; 99284

== ENCOUNTER → 2022-02-08 13:38 | Outpatient (BNVA) | payer MEDICARE, OTHER, SELFPAY | PROVIDERS: PCP Internal Medicine; Visit Provider Anesthesiology | DX: G89.4 Chronic pain syndrome (principal); M96.1 Postlaminectomy syndrome, not elsewhere classified; M17.0 Bilateral primary osteoarthritis of knee; G20 Parkinson's disease | CPT/HCPCS: 99212 ==

== ENCOUNTER 2022-03-02 06:23 | Outpatient (REF) | payer MEDICARE, OTHER, SELFPAY ==
[2022-03-02 06:29] LABS: MANUAL DIFF FLAG NO
[2022-03-02 07:30] LABS: Basophils Absolute Auto 0.1 X10*3/uL (0.0-0.2); Basophils Percent Auto 1.4 % (0-2); Eosinophils Absolute Auto 0.4 X10*3/uL (0.0-0.4); Eosinophils Percent Auto 7.2 % (0-4); Hematocrit 49.1 % (42.0-52.0); Hemoglobin 15.4 g/dl (14.0-18.0); Imm Gran Abs Auto 0.02 X10*3/uL (0.00-0.03); Imm Gran Pct Auto 0.4 % (0.0-0.4); Lymphocytes Percent Auto 34.9 % (20-40); Mean Corpuscular HGB Conc 31.4 g/dl (31.0-36.0); Mean Corpuscular Hemoglobin 32.6 pg (27.0-33.0); Mean Corpuscular Volume 103.8 fL (80.0-98.0); Mean Platelet Volume 9.5 fL (9.4-12.4); Monocytes Absolute Auto 0.5 X10*3/uL (0.1-1.2); Monocytes Percent Auto 8.1 % (2-11); Neutrophils Absolute Auto 2.7 x10*3/uL (2.0-8.3); Platelet Count 181 X10*3/uL (160-400); Red Blood Count 4.73 X10*6/uL (4.60-5.80); Red Cell Distribution Width 12.3 % (11.0-16.0); White Blood Count 5.7 X10*3/uL (4.8-10.8)
[2022-03-02 08:43] LABS: Alanine Aminotransferase 11 U/L (0-40); Alkaline Phosphatase 83 U/L (39-117); Anion Gap 13 (12-20); Aspartate Amino Transferase 17 U/L (5-37); Bilirubin Total 0.7 mg/dL (0.0-1.0); Blood Urea Nitrogen 19 mg/dL (9-16); Calcium 9.1 mg/dL (8.4-10.2); Carbon Dioxide 32 mmol/L (22-29); Chloride 104 mmol/L (96-108); Cholesterol 184 mg/dL; Estimated Glomerular Filt Rate > 60; Free T4 (Free Thyroxine) 0.95 ng/dL (0.71-1.85); Glucose Fasting 94 mg/dL (60-99); HDL Cholesterol 58 mg/dL; LDL Cholesterol Calculated 94 mg/dl; Potassium 4.1 mmol/L (3.3-5.1); Prostate Specific Antigen 0.26 ng/mL (<0.05-4.0); Sodium 145 mmol/L (135-145); Thyroid Stimulating Hormone 3.26 uIU/mL (0.32-4.0); Triglycerides 161 mg/dL
[2022-03-02 09:34] LABS: Vitamin B12 329 pg/mL (200-900)
== END 2022-03-02 06:24 | disposition home or self-care (01) ==
LOC: HO.LAB 06:23
PROVIDERS: PCP Internal Medicine; Visit Provider Internal Medicine
DX: Z00.00 Encounter for general adult medical examination without abnormal findings (principal); Z12.5 Encounter for screening for malignant neoplasm of prostate; E03.9 Hypothyroidism, unspecified
CPT/HCPCS: 36415; 80053; 80061; 82607; 84153; 84439; 84443; 85025

== ENCOUNTER 2022-03-04 07:38 | Emergency (ER) | payer MEDICARE, OTHER, SELFPAY ==
--- NOTE | ~2022-03-04 | CT_ITS ---
EXAMINATION: CT HEAD WITHOUT CONTRAST CT MAXILLOFACIAL WITHOUT CONTRAST CT CERVICAL SPINE WITHOUT CONTRAST CLINICAL INFORMATION: Fall. Head injury. Right periorbital ecchymosis. Neck pain. COMPARISON: MRI cervical spine 05/02/2017. TECHNIQUE: Contiguous axial imaging of the head was performed without the administration of IV contrast. Axial multidetector volumetric images were also performed through the facial bones without contrast from the frontal sinuses through the mandible. Axial imaging of the cervical spine. Multiplanar reconstructed images in coronal and sagittal orientations were submitted. DLP: 1678 mGy-cm FINDINGS: HEAD: There is no evidence of acute intracranial hemorrhage or territorial infarction. No abnormal mass-effect or midline shift. No extra-axial fluid collections. Mayen to white matter differentiation is well preserved. Commensurate prominence of the ventricles and sulci is compatible with generalized parenchymal volume loss. There is periventricular and subcortical white matter hypoattenuation, most likely representing microangiopathic disease. No acute calvarial fracture seen. Bilateral lens extraction. The sinuses and mastoid air cells are clear. MAXILLOFACIAL: Motion artifact limits evaluation of a portion of the mandible. Normal articulation of bilateral temporomandibular joints. The maxilla, pterygoid plates, nasal bones, zygomatic arches, paranasal sinus dubois, and bony orbits are intact. No acute osseous abnormality within the maxillofacial region. Mucosal thickening in the inferior left maxillary sinus. The remainder of the paranasal sinuses and mastoid air cells remain well-aerated. Mild right periorbital soft tissue swelling. CERVICAL SPINE: Postsurgical changes status post laminectomy and posterior spinal fusion, with posterior spinal fusion hardware visualized at C2-T1, and further extending inferiorly beyond the [id number]. No evidence of hardware fracture. No suspicious avis-hardware lucency to suggest hardware failure. There is prominent metallic artifact with associated limitation. Craniocervical and atlantoaxial alignment is maintained. Predens space is maintained. Vertebral body heights are maintained. No visible acute fractures. Base of the dens is intact. There is multilevel disc height narrowing, with partial osseous bridging at the disc spaces, spanning at C2-C7, more prominent at C5-C6. No significant prevertebral soft tissue swelling. No suspicious thyroid findings. CT/CT cervical spine wo IV con IMPRESSION: 1. No CT evidence of acute intracranial hemorrhage or edematous territorial infarction. 2. Limited evaluation of the mandible due to motion artifact. Otherwise, no CT evidence of acute facial fracture. 3. Postsurgical changes status post posterior spinal fusion in the cervical spine, as well as in the thoracic spine which is partially imaged. No findings to suggest hardware fracture or failure. 4. No acute fracture is seen of the cervical spine. See details above.
--- NOTE | ~2022-03-04 | CT_ITS ---
EXAMINATION: CT HEAD WITHOUT CONTRAST CT MAXILLOFACIAL WITHOUT CONTRAST CT CERVICAL SPINE WITHOUT CONTRAST CLINICAL INFORMATION: Fall. Head injury. Right periorbital ecchymosis. Neck pain. COMPARISON: MRI cervical spine 05/02/2017. TECHNIQUE: Contiguous axial imaging of the head was performed without the administration of IV contrast. Axial multidetector volumetric images were also performed through the facial bones without contrast from the frontal sinuses through the mandible. Axial imaging of the cervical spine. Multiplanar reconstructed images in coronal and sagittal orientations were submitted. DLP: 1678 mGy-cm FINDINGS: HEAD: There is no evidence of acute intracranial hemorrhage or territorial infarction. No abnormal mass-effect or midline shift. No extra-axial fluid collections. Mayen to white matter differentiation is well preserved. Commensurate prominence of the ventricles and sulci is compatible with generalized parenchymal volume loss. There is periventricular and subcortical white matter hypoattenuation, most likely representing microangiopathic disease. No acute calvarial fracture seen. Bilateral lens extraction. The sinuses and mastoid air cells are clear. MAXILLOFACIAL: Motion artifact limits evaluation of a portion of the mandible. Normal articulation of bilateral temporomandibular joints. The maxilla, pterygoid plates, nasal bones, zygomatic arches, paranasal sinus dubois, and bony orbits are intact. No acute osseous abnormality within the maxillofacial region. Mucosal thickening in the inferior left maxillary sinus. The remainder of the paranasal sinuses and mastoid air cells remain well-aerated. Mild right periorbital soft tissue swelling. CERVICAL SPINE: Postsurgical changes status post laminectomy and posterior spinal fusion, with posterior spinal fusion hardware visualized at C2-T1, and further extending inferiorly beyond the [id number]. No evidence of hardware fracture. No suspicious avis-hardware lucency to suggest hardware failure. There is prominent metallic artifact with associated limitation. Craniocervical and atlantoaxial alignment is maintained. Predens space is maintained. Vertebral body heights are maintained. No visible acute fractures. Base of the dens is intact. There is multilevel disc height narrowing, with partial osseous bridging at the disc spaces, spanning at C2-C7, more prominent at C5-C6. No significant prevertebral soft tissue swelling. No suspicious thyroid findings. CT/CT head/brain wo IV con IMPRESSION: 1. No CT evidence of acute intracranial hemorrhage or edematous territorial infarction. 2. Limited evaluation of the mandible due to motion artifact. Otherwise, no CT evidence of acute facial fracture. 3. Postsurgical changes status post posterior spinal fusion in the cervical spine, as well as in the thoracic spine which is partially imaged. No findings to suggest hardware fracture or failure. 4. No acute fracture is seen of the cervical spine. See details above.
--- NOTE | ~2022-03-04 | CT_ITS ---
EXAMINATION: CT HEAD WITHOUT CONTRAST CT MAXILLOFACIAL WITHOUT CONTRAST CT CERVICAL SPINE WITHOUT CONTRAST CLINICAL INFORMATION: Fall. Head injury. Right periorbital ecchymosis. Neck pain. COMPARISON: MRI cervical spine 05/02/2017. TECHNIQUE: Contiguous axial imaging of the head was performed without the administration of IV contrast. Axial multidetector volumetric images were also performed through the facial bones without contrast from the frontal sinuses through the mandible. Axial imaging of the cervical spine. Multiplanar reconstructed images in coronal and sagittal orientations were submitted. DLP: 1678 mGy-cm FINDINGS: HEAD: There is no evidence of acute intracranial hemorrhage or territorial infarction. No abnormal mass-effect or midline shift. No extra-axial fluid collections. Mayen to white matter differentiation is well preserved. Commensurate prominence of the ventricles and sulci is compatible with generalized parenchymal volume loss. There is periventricular and subcortical white matter hypoattenuation, most likely representing microangiopathic disease. No acute calvarial fracture seen. Bilateral lens extraction. The sinuses and mastoid air cells are clear. MAXILLOFACIAL: Motion artifact limits evaluation of a portion of the mandible. Normal articulation of bilateral temporomandibular joints. The maxilla, pterygoid plates, nasal bones, zygomatic arches, paranasal sinus dubois, and bony orbits are intact. No acute osseous abnormality within the maxillofacial region. Mucosal thickening in the inferior left maxillary sinus. The remainder of the paranasal sinuses and mastoid air cells remain well-aerated. Mild right periorbital soft tissue swelling. CERVICAL SPINE: Postsurgical changes status post laminectomy and posterior spinal fusion, with posterior spinal fusion hardware visualized at C2-T1, and further extending inferiorly beyond the [id number]. No evidence of hardware fracture. No suspicious avis-hardware lucency to suggest hardware failure. There is prominent metallic artifact with associated limitation. Craniocervical and atlantoaxial alignment is maintained. Predens space is maintained. Vertebral body heights are maintained. No visible acute fractures. Base of the dens is intact. There is multilevel disc height narrowing, with partial osseous bridging at the disc spaces, spanning at C2-C7, more prominent at C5-C6. No significant prevertebral soft tissue swelling. No suspicious thyroid findings. CT/CT facial bones wo IV con IMPRESSION: 1. No CT evidence of acute intracranial hemorrhage or edematous territorial infarction. 2. Limited evaluation of the mandible due to motion artifact. Otherwise, no CT evidence of acute facial fracture. 3. Postsurgical changes status post posterior spinal fusion in the cervical spine, as well as in the thoracic spine which is partially imaged. No findings to suggest hardware fracture or failure. 4. No acute fracture is seen of the cervical spine. See details above.
--- NOTE | ~2022-03-04 | XR_ITS ---
EXAMINATION: XR SHOULDER, LEFT CLINICAL INFORMATION: Left shoulder pain status post fall. COMPARISON: 05/12/2016 left shoulder radiographs. TECHNIQUE: AP external rotation, Grashey, scapular Y, and axillary views of the left shoulder. FINDINGS: There is a mildly displaced fracture of the distal left clavicle just proximal to the left acromioclavicular joint. There is approximate 3 cm superior displacement of the proximal fragment. Mild left acromioclavicular and glenohumeral degenerative joint changes are seen. The visualized left ribs are intact with the soft tissues are unremarkable. XR/XR shoulder LT min 2V IMPRESSION: 1. Acute, mildly displaced distal left clavicle fracture. 2. Mild left shoulder degenerative joint changes.
[2022-03-04 07:40] VITALS: BP 138/94; PULSE 80; RESP 18; TEMP 36.6; O2SAT 98; BMI 31.3
[2022-03-04 07:52] VITALS: BP 163/83; PULSE 86; RESP 18; TEMP 36.6; O2SAT 98
--- NOTE | 2022-03-04 08:00 | ED.EXTPRO ---
HPI - Extremity Problem General Chief complaint: Extremity Injury, Upper Stated complaint: fall Time Seen by Provider: 03/04/22 07:57 Source: patient Mode of arrival: ambulatory Limitations: no limitations History of Present Illness HPI Narrative: 71-year-old male who presents emergency department for evaluation of injuries from a fall. Patient states that he got up with the mill night slept down stairs. He then went back upstairs to get back in bed. He states his bedroom was dark and he went to lie on his bed but this the bed and fell onto the floor. Patient states that he fell forward and struck his head. He did not lose consciousness. He states he developed severe pain in his left shoulder. On presentation to the emergency department he is complaining of of his left shoulder which is constant, sharp and greater than 10/10. The patient denied headache, nausea, vomiting. The patient does have chronic pain syndrome is had multiple neck surgeries. The patient takes oxycodone and ibuprofen on a regular basis for his chronic pain MD Complaint: extremity pain Onset (ago): minute(s) (30) Pain Consistency: constant Location: left and upper extremity Severity scale (1-10): >10 Quality: sharp Radiation: none Relieving factors: nothing Exacerbating factors: range of motion Associated symptoms: denies other symptoms Related Data Home Medications Medication Instructions Recorded Confirmed acetaminophen 650 mg 650 mg PO Q8H 01/21/20 01/04/22 tablet,extended release (Tylenol Arthritis Pain) carbidopa 25 mg-levodopa 100 mg 1 tab PO QID 01/21/20 01/04/22 tablet diclofenac sodium 1 % topical gel 2 g topical QID 01/21/20 01/04/22 finasteride 5 mg tablet 5 mg PO DAILY 01/21/20 01/04/22 ibuprofen 200 mg tablet 200 mg PO Q6H PRN 01/21/20 01/04/22 levothyroxine 50 mcg tablet 50 mcg PO DAILY 01/21/20 01/04/22 lidocaine 5 % topical patch 1 patch topical DAILY 01/21/20 01/04/22 lisinopril 10 mg tablet 10 mg PO DAILY 01/21/20 01/04/22 multivitamin (Daily Multi-Vitamin 1 tab PO DAILY 01/21/20 01/04/22 tablet) polyethylene glycol 3350 17 17 g PO DAILY 01/21/20 01/04/22 gram/dose oral powder (Miralax) tamsulosin 0.4 mg capsule 0.4 mg PO BEDTIME 01/21/20 01/04/22 ondansetron HCl 4 mg tablet 4 mg PO Q8H 09/15/20 01/04/22 pantoprazole 40 mg tablet,delayed 40 mg PO BID 09/15/20 01/04/22 release tizanidine 2 mg tablet 2 mg PO BID PRN 09/15/20 01/04/22 ropinirole 3 mg tablet 3 mg PO 10/21/20 01/04/22 selegiline HCl 5 mg tablet 5 mg PO BID 10/21/20 01/04/22 amantadine HCl 100 mg capsule 100 mg PO TID 10/27/20 01/04/22 fluticasone propionate 50 spray intranasal 10/27/20 01/04/22 mcg/actuation nasal spray,suspension pregabalin 75 mg capsule mg PO 10/27/20 01/04/22 donepezil 10 mg tablet 0 mg PO 10/07/21 01/04/22 duloxetine 60 mg capsule,delayed 60 mg PO DAILY 10/07/21 01/04/22 release memantine 10 mg tablet 10 mg PO BID 10/07/21 01/04/22 pregabalin 300 mg capsule 300 mg PO BID 10/07/21 01/04/22 trazodone 50 mg tablet 50 mg PO BEDTIME 10/07/21 01/04/22 Previous Rx's Medication Instructions Recorded baclofen 10 mg tablet 10 mg PO TID 30 days #90 tabs 02/21/21 diltiazem HCl 240 mg 240 mg PO DAILY 90 days #90 caps 04/26/21 capsule,extended release 24 hr baclofen 20 mg tablet 20 mg PO BID PRN pain (scale score 10/04/21 4-6) 30 days #60 tabs tizanidine 4 mg tablet 4 mg PO TID PRN muscle spasticity 10/04/21 30 days #90 tabs oxycodone 5 mg tablet 5 mg PO Q6H PRN pain 30 days #120 02/08/22 tabs Allergies Allergy/AdvReac Type Severity Reaction Status Date / Time Sulfa (Sulfonamide Allergy Severe HIVES/DIFF. Verified 02/08/22 14:08 Antibiotics) BREATHING vancomycin [VANCOMYCIN] Allergy Severe SHORTNESS Verified 02/08/22 14:08 OF BREATH cephalexin [CEPHALEXIN] Allergy Intermediate SHORTNESS Verified 02/08/22 14:08 OF BREATH DAIRY PRODUCTS AdvReac Intermediate GI Uncoded 02/08/22 14:08 UPSET/DIARRHEA Review of Systems Review of Systems: Yes all other systems are reviewed and are negative [facility] Past Medical History [facility] Narrative: Social history: Patient is his is here in the emergency department with him. He denies tobacco, alcohol and drug use. Medical History Bilateral primary osteoarthritis of knee BPH (benign prostatic hyperplasia) Chronic pain syndrome Failed back syndrome of cervical spine GERD (gastroesophageal reflux disease) Hard of hearing HTN (hypertension) Hypertensive heart disease Hypothyroidism PAC (premature atrial contraction) Parkinsons Restless leg syndrome Social History Social History Alcohol intake: never Patient Tobacco Use Status: Never used Tobacco Advance Directives: No Advance Directives Date on File: 01/19/20 Physical Exam Vital Signs: Vital Signs: Last Vital Signs Temp 97.8 F 03/04/22 07:52 Pulse 86 03/04/22 07:52 Resp 18 03/04/22 07:52 BP 163/83 H 03/04/22 07:52 Pulse Ox 98 03/04/22 07:52 O2 Del Method 03/04/22 07:52 BMI result Body Mass Index 31.3 Const: Other: Awake, alert, male patient, he does appear to be distress secondary to his left shoulder pain , the patient does have periorbital ecchymosis to his right eye, HEENT: Other: No palpable scalp hematoma Ears: external ears normal General nose exam: Normal external nose present Face and sinus: Yes other (No zygomatic at arch tenderness) Mouth: Normal oral and palatal mucosa present Throat: Yes posterior oropharynx normal Eyes: Other: Pupils are equal, round and reactive to light, patient does have tenderness palpation of the inferior orbital rim and does have periorbital ecchymosis to the right eye. Pupils: Equal, round and reactive pupils present Neck: Neck: Yes normal visual inspection, Yes no lymphadenopathy, Yes trachea midline and Yes supple Chest: Chest palpation & inspection: normal inspection of the chest and normal palpation of entire chest wall Resp: Effort & Inspection: normal respiratory effort and able to speak in complete sentences Auscultation: clear to auscultation bilaterally Cardio: Rate: regular rate Rhythm: regular rhythm Heart sounds: S1 normal heart sound present, S2 normal heart sound present and no murmurs GI: Inspection: Yes normal to inspection Palpation (GI): Soft to palpation, nontender and no guarding Auscultation: normal bowel sounds : General: Yes no CVA tenderness Back/Spine/Pelvis: Back: no CVA tenderness Skin: General skin exam: no rashes or lesions noted Neuro: Cranial nerves: Yes CN's II-XII intact bilaterally (Except for motion of the left shoulder secondary to injury) and Yes Equal, round and reactive pupils present Cognition (Neuro): normal cognition Motor exam (neuro): 5/5 motor strength present throughout Extrem: Other: Patient has tenderness palpation of the left shoulder and clavicle, has limited range of motion secondary to pain, his extremities neurovascular intact Psych: Appearance: grossly normal Speech and movement: Normal speech and movement present Affect: normal affect Attitude: cooperative Thought process: Normal thought process present Thought content: Normal thought content present Course Course Course Narrative: 71-year-old male who presents emergency department for evaluation of a fall from a standing position. The patient's bedroom was dark any missed does wear his bed was, he fell from a standing position to the floor when he tried to lie face 1st into his bed. Patient did strike his head but had no loss of consciousness. He developed immediate pain in his left shoulder area. Physical examination did reveal ecchymosis around his right eye with tenderness palpation of the right inferior orbital rim with no zygomatic arch tenderness. He had no palpable scalp hematomas. Patient had severe pain with palpation of his left shoulder and left clavicle area. Patient was treated with morphine 4 mg IV x3 doses. CT scan of his head and cervical spine revealed no acute findings. X-ray of the patient's left shoulder revealed a displaced distal clavicle fracture. I did discuss this with the patient. The patient does take oxycodone ibuprofen home advised to continue taking these medications. He was given a sling to wear but he felt that it made him uncomfortable but he will take the sling home. He is advised to follow-up with our orthopedic doctor. He was given printed and verbal instructions on head injury as well pain Medications Administered Discontinued Medications Generic Name Dose Route Start Last Admin Trade Name Flaco PRN Reason Stop Dose Admin Morphine Sulfate 4 mg 03/04/22 08:09 03/04/22 08:37 Morphine Sulfate 4 Mg/Ml Cartridge IVPUSH 03/04/22 08:10 4 mg ONCE STA Administration Protocol Morphine Sulfate 4 mg 03/04/22 09:39 03/04/22 09:48 Morphine Sulfate 4 Mg/Ml Cartridge IVPUSH 03/04/22 09:40 4 mg ONCE STA Administration Protocol Ondansetron HCl 4 mg 03/04/22 08:09 03/04/22 08:37 Ondansetron Hcl 4 Mg/2 Ml Vial IVPUSH 03/04/22 08:10 4 mg ONCE ONE Administration Discharge Plan Discharge Clinical Impression: Fall, Clavicle fracture, Head injury, Facial trauma Patient Disposition: Home, Self-Care Instructions: Clavicle Fracture (ED), Head Injury (ED) Additional Instructions: The CT scan of your head, neck and face revealed no broken bones or bleeding in the brain which is reassuring The x-ray of your left shoulder revealed she did not injure the shoulder joint but you did fracture/break your clavicle (collarbone). A collar bone/clavicle fracture is treated with a sling and follow-up with the orthopedic doctors to determine if this needs a surgical repair. Most clavicle fractures do not need a surgery and heal over a 4-6 weeks. Continue taking your oxycodone and ibuprofen. Follow-up with your doctor in 2 days. Please return to the emergency department if your symptoms get worse or if you develop any symptoms that are concerning to you. Prescriptions: No Action baclofen 10 mg tablet 10 mg PO TID 30 Days Qty: 90 8RF diltiazem HCl 240 mg capsule,extended release 24hr 240 mg PO DAILY 90 Days Qty: 90 3RF baclofen 20 mg tablet 20 mg PO BID PRN (Reason: pain (scale score 4-6)) 30 Days Qty: 60 11RF tizanidine 4 mg tablet 4 mg PO TID PRN (Reason: muscle spasticity) 30 Days Qty: 90 11RF pantoprazole 40 mg tablet,delayed release (DR/EC) 40 mg PO BID tizanidine 2 mg tablet 2 mg PO BID PRN ondansetron HCl 4 mg tablet 4 mg PO Q8H ropinirole 3 mg tablet 3 mg PO Rx Instructions: starting to reduce to stop selegiline HCl 5 mg tablet 5 mg PO BID Rx Instructions: administer with breakfast and lunch levothyroxine 50 mcg tablet 50 mcg PO DAILY lidocaine 5 % adhesive patch,medicated 1 patch topical DAILY Rx Instructions: leave on most painful area for up to 12 hrs diclofenac sodium 1 % gel 2 g topical QID Rx Instructions: apply to single elbow, wrist or hand; for hand includes palm/fingers/back of hand carbidopa-levodopa 25-100 mg tablet 1 tab PO QID tamsulosin 0.4 mg capsule 0.4 mg PO BEDTIME lisinopril 10 mg tablet 10 mg PO DAILY polyethylene glycol 3350 [Miralax] 17 gram/dose powder 17 g PO DAILY ibuprofen 200 mg tablet 200 mg PO Q6H PRN finasteride 5 mg tablet 5 mg PO DAILY multivitamin [Daily Multi-Vitamin] Tablet 1 tab PO DAILY acetaminophen [Tylenol Arthritis Pain] 650 mg tablet extended release 650 mg PO Q8H amantadine HCl 100 mg capsule 100 mg PO TID fluticasone propionate 50 mcg/actuation spray,suspension intranasal pregabalin 75 mg capsule PO oxycodone 5 mg tablet 5 mg PO Q6H PRN (Reason: pain) 30 Days Qty: 120 0RF Rx Instructions: Partial Fill upon patient request. duloxetine 60 mg capsule,delayed release(DR/EC) 60 mg PO DAILY pregabalin 300 mg capsule 300 mg PO BID memantine 10 mg tablet 10 mg PO BID trazodone 50 mg tablet 50 mg PO BEDTIME donepezil 10 mg tablet 0 mg PO Referrals: Max Gonzalez MD [Physician] - 1 week (Left distal clavicle fracture, displaced)
[2022-03-04] MEDS: ondansetron HCL 4 MG/2 ML VIAL IVPUSH (08:37)
[2022-03-04] MEDS: Morphine Sulfate 4 MG/ML CARTRIDGE IVPUSH ×3 (08:37→11:28)
--- NOTE | 2022-03-04 08:40 | PC.NURSE ---
pt alert and oriented x 3. pt came in due to a fall at home. light was off and he didn't see where the bed was. hit his shoulder and rt eye. complains of left shoulder pain /10. has a mild orbital bruise and swelling BP 163/83 other VS wnl. at the bedside. going to ct now.
--- NOTE | 2022-03-04 09:51 | PC.NURSE ---
pt resting comfortably. complains of left shoulder pain 8/0. states morphine helped but when he went to get xray they moved him around and the pain got worse
[2022-03-04 11:31] VITALS: BP 141/67; PULSE 83; RESP 18; O2SAT 95
== END 2022-03-04 11:46 | disposition home or self-care (01) ==
PROVIDERS: Emergency Provider Emergency Medicine Emergency Medical Services; PCP Internal Medicine
DX: S42.032A Displaced fracture of lateral end of left clavicle, initial encounter for closed fracture (principal); S09.90XA Unspecified injury of head, initial encounter; S00.11XA Contusion of right eyelid and periocular area, initial encounter; W17.89XA Other fall from one level to another, initial encounter; I10 Essential (primary) hypertension; G20 Parkinson's disease; G89.4 Chronic pain syndrome; Z79.891 Long term (current) use of opiate analgesic; Y93.89 Activity, other specified; Y92.013 Bedroom of single-family (private) house as the place of occurrence of the external cause; Y99.9 Unspecified external cause status; Z79.899 Other long term (current) drug therapy
CPT/HCPCS: 70450; 70486; 72125; 73030; 96374; 96375; 96376; 99284; J2270; J2405

== ENCOUNTER → 2022-03-08 13:38 | Outpatient (BNVA) | payer MEDICARE, OTHER, SELFPAY | PROVIDERS: PCP Internal Medicine; Visit Provider Anesthesiology | DX: Z79.891 Long term (current) use of opiate analgesic (principal) | CPT/HCPCS: 99211 ==

== ENCOUNTER 2022-03-14 14:26 | Outpatient (REF) | payer SELFPAY | END 2022-03-14 14:27 | disposition home or self-care (01) | LOC: HO.HAP 14:26 | PROVIDERS: Visit Provider Internal Medicine | DX: Z13.89 Encounter for screening for other disorder (principal) ==

== ENCOUNTER 2022-03-22 09:23 | Outpatient (REF) | payer MEDICARE, OTHER, SELFPAY ==
[2022-03-22 11:03] LABS: Appearance Urine Clear; Color Urine Yellow; Glucose Urine UA Negative (Negative); Leukocyte Esterase Urine Negative (Negative); Nitrite Urine Negative (Negative); PH 5.5 (5.0-9.0); Specific Gravity - Urine 1.025 (1.005-1.025); Urine Blood Negative (Negative); Urine Ketones Trace mg/dL (Negative); Urine Protein Negative (Neg-Trace)
[2022-03-22 11:50] LABS: Blood Urea Nitrogen 24 mg/dL (9-16); C Reactive Protein 0.72 mg/dL (< or = 0.50); Calcium 9.2 mg/dL (8.4-10.2); Estimated Glomerular Filt Rate > 60; Free T4 (Free Thyroxine) 1.08 ng/dL (0.71-1.85); Glucose Random 93 mg/dL (60-115); Thyroid Stimulating Hormone 3.26 uIU/mL (0.32-4.0)
[2022-03-22 11:58] LABS: Anion Gap 10 (12-20); Carbon Dioxide 32 mmol/L (22-29); Chloride 107 mmol/L (96-108); Potassium 4.3 mmol/L (3.3-5.1); Sodium 145 mmol/L (135-145)
[2022-03-23 09:02] LABS: Triiodothyronine T3 Free 3.1 pg/mL (2.3-4.2)
== END 2022-03-22 09:24 | disposition home or self-care (01) ==
LOC: HO.10HDL 09:23
PROVIDERS: Visit Provider Internal Medicine
DX: J00 Acute nasopharyngitis [common cold] (principal); L65.9 Nonscarring hair loss, unspecified; I10 Essential (primary) hypertension
CPT/HCPCS: 36415; 80048; 81003; 84439; 84443; 84481; 86140; 87086

== ENCOUNTER → 2022-03-27 10:57 | Outpatient (BNVA) | payer MEDICARE, OTHER, SELFPAY | PROVIDERS: PCP Internal Medicine; Visit Provider Anesthesiology | DX: G89.4 Chronic pain syndrome (principal); M96.1 Postlaminectomy syndrome, not elsewhere classified; M17.0 Bilateral primary osteoarthritis of knee; G20 Parkinson's disease; Z79.891 Long term (current) use of opiate analgesic | CPT/HCPCS: 99212 ==

== ENCOUNTER 2022-04-12 09:54 | Inpatient (IN) | payer MEDICARE, OTHER, SELFPAY ==
[2022-04-12] VITALS (8 sets, daily range): BP systolic 95–145; BP diastolic 57–70; PULSE 64–120; RESP 15–22; TEMP 37–38.2; O2SAT 89–96; BMI 31.3
--- NOTE | ~2022-04-12 | XR_ITS ---
EXAMINATION: XR CHEST CLINICAL INFORMATION: SOB. COMPARISON: Chest x-ray 04/12/2022 TECHNIQUE: Frontal view of the chest was obtained. FINDINGS: There is interval diffuse patchy opacity seen in both upper and lower lobes and parahilar regions suggestive of infiltrates or interstitial edema. No pleural effusion seen. There is no consolidation. Heart size and pulmonary vascularity is normal. There is extensive cervical and upper thoracic spine spinal hardware for fusion. Minimal levoscoliosis seen in mid to lower dorsal spine. XR/XR chest 1V IMPRESSION: Interval diffuse patchy opacity seen in both upper and lower lobes and parahilar regions suggestive of infiltrates or interstitial edema.
--- NOTE | ~2022-04-12 | XR_ITS ---
EXAMINATION: XR CHEST CLINICAL INFORMATION: Shortness of breath COMPARISON: Previous chest x-ray January 2022 TECHNIQUE: Frontal view of the chest was obtained. FINDINGS: The cardiac and mediastinal contours are stable. The lungs are clear. No pleural effusion or pneumothorax. Left distal clavicle fracture. This may be new in the interval from January 2022 exam. Extensive orthopedic hardware in the visualized lower cervical and upper thoracic spine. Curvature of the mid thoracic spine to the left. XR/XR chest 1V IMPRESSION: No evidence for acute disease in the chest. Left distal clavicle fracture
--- NOTE | ~2022-04-12 | XR_ITS ---
EXAMINATION: XR SHOULDER, LEFT CLINICAL INFORMATION: Evaluate left distal clavicle fracture seen on chest x-ray. COMPARISON: Previous lower pole x-ray February 2022 and chest x-ray from earlier the same day TECHNIQUE: 2 views of the left shoulder. FINDINGS: Displaced left distal clavicle fracture. Alignment appears unchanged from February 2022. No periosteal reaction or bony union is seen. No other fracture. Arthritis at the glenohumeral and acromioclavicular joints. Normal soft tissues. Postsurgical changes to the cervical and thoracic spine. XR/XR shoulder LT min 2V IMPRESSION: Stable alignment of the left distal clavicle fracture from February 2022.
--- NOTE | 2022-04-12 09:57 | ECG_ITS ---
Test Reason : SOB Blood Pressure : / mmHG Vent. Rate : 102 BPM Atrial Rate : 102 BPM P-R Int : 138 ms QRS Dur : 130 ms QT Int : 428 ms P-R-T Axes : 027 -25 013 degrees QTc Int : 557 ms Sinus tachycardia Right bundle branch block Abnormal ECG When compared with ECG of 17-JAN-2022 01:14, QT has lengthened Referred By: Pauline Oglesby Electronically Signed By:MAVIS MARTINEZ MD
--- NOTE | 2022-04-12 10:11 | ED_ITS ---
HPI - General Adult General Chief complaint: Upper Respiratory Symptoms Stated complaint: DIFF BREATHING X 2 DAYS Time Seen by Provider: 04/12/22 09:56 Source: patient Mode of arrival: EMS History of Present Illness HPI narrative: 71-year-old male who has underlying Parkinson's, has taken his medications this morning and arrives via EMS for worsening shortness of breath on exertion. Patient denies any cough but he has been experience in subjective fevers as well as chills and the shortness of breath. He denies chest pain at this time. Related Data Home Medications Medication Instructions Recorded Confirmed acetaminophen 650 mg 650 mg PO Q8H 01/21/20 03/08/22 tablet,extended release (Tylenol Arthritis Pain) carbidopa 25 mg-levodopa 100 mg 1 tab PO QID 01/21/20 03/08/22 tablet diclofenac sodium 1 % topical gel 2 g topical QID 01/21/20 03/08/22 finasteride 5 mg tablet 5 mg PO DAILY 01/21/20 03/08/22 ibuprofen 200 mg tablet 200 mg PO Q6H PRN 01/21/20 03/08/22 levothyroxine 50 mcg tablet 50 mcg PO DAILY 01/21/20 03/08/22 lidocaine 5 % topical patch 1 patch topical DAILY 01/21/20 03/08/22 lisinopril 10 mg tablet 10 mg PO DAILY 01/21/20 03/08/22 multivitamin (Daily Multi-Vitamin 1 tab PO DAILY 01/21/20 03/08/22 tablet) polyethylene glycol 3350 17 17 g PO DAILY 01/21/20 03/08/22 gram/dose oral powder (Miralax) tamsulosin 0.4 mg capsule 0.4 mg PO BEDTIME 01/21/20 03/08/22 ondansetron HCl 4 mg tablet 4 mg PO Q8H 09/15/20 03/08/22 pantoprazole 40 mg tablet,delayed 40 mg PO BID 09/15/20 03/08/22 release tizanidine 2 mg tablet 2 mg PO BID PRN 09/15/20 03/08/22 ropinirole 3 mg tablet 3 mg PO 10/21/20 03/08/22 selegiline HCl 5 mg tablet 5 mg PO BID 10/21/20 03/08/22 fluticasone propionate 50 spray intranasal 10/27/20 03/08/22 mcg/actuation nasal spray,suspension pregabalin 75 mg capsule mg PO 10/27/20 03/08/22 donepezil 10 mg tablet 0 mg PO 10/07/21 03/08/22 duloxetine 60 mg capsule,delayed 60 mg PO DAILY 10/07/21 03/08/22 release memantine 10 mg tablet 10 mg PO BID 10/07/21 03/08/22 pregabalin 300 mg capsule 300 mg PO BID 10/07/21 03/08/22 trazodone 50 mg tablet 50 mg PO BEDTIME 10/07/21 03/08/22 amantadine HCl 100 mg tablet 1 tab PO TID 04/12/22 Previous Rx's Medication Instructions Recorded baclofen 10 mg tablet 10 mg PO TID 30 days #90 tabs 02/21/21 baclofen 20 mg tablet 20 mg PO BID PRN pain (scale score 10/04/21 4-6) 30 days #60 tabs tizanidine 4 mg tablet 4 mg PO TID PRN muscle spasticity 10/04/21 30 days #90 tabs diltiazem HCl 240 mg 240 mg PO DAILY #90 caps 03/27/22 capsule,extended release 24 hr oxycodone 5 mg tablet 5 mg PO Q4H PRN pain 30 days #150 03/29/22 tabs Allergies Allergy/AdvReac Type Severity Reaction Status Date / Time Sulfa (Sulfonamide Allergy Severe HIVES/DIFF. Verified 03/27/22 11:11 Antibiotics) BREATHING vancomycin [VANCOMYCIN] Allergy Severe SHORTNESS Verified 03/27/22 11:11 OF BREATH cephalexin [CEPHALEXIN] Allergy Intermediate SHORTNESS Verified 03/27/22 11:11 OF BREATH DAIRY PRODUCTS AdvReac Intermediate GI Uncoded 03/27/22 11:11 UPSET/DIARRHEA Review of Systems Review of Systems: Pertinent positives and negatives as stated in HPI. [facility] Past Medical History Source: nursing notes reviewed Medical History Bilateral primary osteoarthritis of knee BPH (benign prostatic hyperplasia) Chronic pain syndrome Failed back syndrome of cervical spine GERD (gastroesophageal reflux disease) Hard of hearing HTN (hypertension) Hypertensive heart disease Hypothyroidism PAC (premature atrial contraction) Parkinsons Restless leg syndrome Social History Social History Alcohol intake: never Patient Tobacco Use Status: Never used Tobacco Advance Directives: Yes Advance Directives Information Provided: No Advance Directives on File: No Advance Directives Date on File: 01/19/20 Physical Exam ED Vital Signs: Vital Signs - 24 hr 04/12/22 10:02 Temperature 100.1 F Pulse Rate 108 H Respiratory Rate 22 H Blood Pressure 140/65 H Pulse Oximetry 92 Oxygen Delivery Method Room Air BMI result Body Mass Index 31.3 VITAL SIGNS: Reviewed. GENERAL: Well developed, well nourished, in no acute distress. HEAD: Normocephalic/atraumatic EYES: PERRLA, EOMI EARS: Ext canals without abnormality OROPHARYNX: no oral lesions noted, posterior pharynx clear and non-erythematous without noted tonsillar enlargement/erythema/exudates NECK: Supple, no adenopathy LUNGS: Good inspiratory effort but decreased throughout with scattered crackles. Tachypnea present SpO2<89> placed on supplemental oxygen with good response to greater than 92% CARDIOVASCULAR: Regular rate and rhythm without noted murmurs, no JVD or lower extremity edema. ABDOMEN: Soft, non-tender, non-distended with bowel sounds. MUSCULOSKELETAL: No tenderness, deformities, or effusions noted on gross inspection. EXTREMITIES: No cyanosis, clubbing or edema. SKIN: Inspection of the skin reveals no rashes, tactile fever NEUROLOGIC: Alert and oriented x 4. Strength and sensation to light touch were grossly intact x 4, baseline tremulousness. Course Course Course Narrative: I reviewed all laboratory results which demonstrates a pancytopenia, patient febrile to 103 and given Tylenol. Pancytopenia with 22% bands may be secondary to viral infection which is still pending. In addition, the noted anemia is secondary to the pancytopenia as patient has no complaints of hematemesis, hematochezia or melena, and no hematuria. I reviewed all prior imaging studies with regards to noted left distal clavicular fracture and also discussed with the patient at bedside as well as his who is also at bedside in her appears that this fracture was sustained on 03/04/2022 and is identified clearly on shoulder x-ray timed at 09:02. 1120: I spoke with the who denies any new medications or change in medications that might better explain patient's laboratory findings. I did re- examine patient's abdomen and there is no evidence of pain or discomfort and patient again denies any abdominal pain symptoms. Reevaluation(s) Reevaluation #1: I received a call from the lab who reports that patient has 22% bands, lactic acid/blood cultures/broad-spectrum levofloxacin was ordered. Patient otherwise has significant antibiotic allergies to sulfa containing antibiotics/vancomycin/cephalosporins which negates penicillin based antibiotics. Time: 11:05 Reevaluation #2: I reviewed the viral results which are negative, patient also appears to be in a CHF exacerbation with shortness of breath, pancytopenia and 22% bands with absolute lymphocyte count 0.2 and absolute neutrophils 2.0. I am initiating a Heme/Onc consult. I have placed an add on for Mg, LDH, procalcitonin. Time: 11:30 Medications Administered Generic Name Dose Route Start Last Admin Trade Name Freq PRN Reason Stop Dose Admin Levofloxacin 750 mg in 150 mls @ 100 mls/hr 04/12/22 11:05 04/12/22 11:30 Levaquin IV 04/12/22 12:34 100 mls/hr ONCE ONE Administration Discontinued Medications Generic Name Dose Route Start Last Admin Trade Name Freq PRN Reason Stop Dose Admin Acetaminophen 975 mg 04/12/22 10:57 04/12/22 11:01 Acetaminophen 325 Mg Tablet PO 04/12/22 10:58 975 mg ONCE ONE Administration Furosemide 40 mg 04/12/22 11:13 04/12/22 11:30 Furosemide 40 Mg/4 Ml Vial IVPUSH 04/12/22 11:14 40 mg ONCE ONE Administration Protocol Oxycodone HCl 5 mg 04/12/22 11:10 04/12/22 11:31 Oxycodone Hcl Immed Release 5 Mg Tablet PO 04/12/22 11:11 5 mg ONCE ONE Administration Medical Decision Making Medical Decision Making MDM Narrative: 71-year-old male who arrives with increased shortness of breath and no history of CHF for COPD a denies any chest pain but was noted by EMS to be 89%. EMS did provide him with 1 DuoNeb treatment EN route. Differential Diagnosis Differential Diagnoses: The differential diagnosis associated with the presentation includes Viral illness, CHF Admission/Observation Consideration of admission/observation: Escalation of care including admission/observation considered Consult Healthcare Provider Management of the patient was discussed with: Hospitalist and Strategic Partnership Representative Patient will be admitted due to fever of unknown origin and evidence of pancytopenia. In addition, I am placing a consultation with Hematology/Oncology for same reasons. Patient was given empiric levofloxacin as he has allergies as previously stated to sulfa containing antibiotics/vancomycin/cephalexin or I would have administered cefepime or Rocephin. Lab Data MDM Lab Attestation statement: I reviewed the patient's lab results. Please see course Section for discussion. Result Diagrams: 04/12/22 10:21 04/12/22 10:21 Labs: Lab Results 04/12/22 04/12/22 04/12/22 Range/Units 10:21 10:21 10:21 WBC 2.3 L (4.8-10.8) X10*3/uL RBC 3.80 L (4.60-5.80) X10*6/uL Hgb 12.4 L (14.0-18.0) g/dl Hct 38.8 L D (42.0-52.0) % MCV 102.1 H (80.0-98.0) fL MCH 32.6 (27.0-33.0) pg MCHC 32.0 (31.0-36.0) g/dl RDW 12.7 (11.0-16.0) % Plt Count 125 L D (160-400) X10*3/uL MPV 9.4 (9.4-12.4) fL Immature Gran % (Auto) Cancelled Neut % (Auto) Cancelled Lymph % (Auto) Cancelled [place] % (Auto) Cancelled Eos % (Auto) Cancelled Baso % (Auto) Cancelled Lymph # (Auto) Cancelled [place] # (Auto) Cancelled Eos # (Auto) Cancelled Baso # (Auto) Cancelled Abs Immat Gran (auto) Cancelled Absolute Neuts (auto) Cancelled Absolute Nucleated RBC 0.000 (0.0-0.012) X10*3/uL Nucleated RBC % (auto) 0.0 (0.0-0.2) /100WBC Neutrophils % (Manual) 66 (45-73) % Band Neutrophils % 22 H (3-5) % Lymphocytes % (Manual) 10 L (20-40) % Monocytes % (Manual) 2 (2-11) % Abs Neuts (Manual) 2.0 (2.0-8.3) X10*3/uL Lymphocytes # (Manual) 0.2 L (1.2-4.9) X10*3/uL Platelet Estimate DECREASED (NORMAL) Plt Morphology Comment NORMAL RBC Morphology NOTED Hypochromasia 1+ (5-14) /OIF Macrocytosis 1+ (5-14) /OIF PT (10.0-13.1) SEC INR (0.9-1.1) Sodium 142 (135-145) mmol/L Potassium 4.0 (3.3-5.1) mmol/L Chloride 102 (96-108) mmol/L Carbon Dioxide 31 H (22-29) mmol/L Anion Gap 13 (12-20) BUN 27 H (9-16) mg/dL Creatinine 0.96 (0.5-1.4) mg/dL Estim Creat Clear Calc 74.7 Estimated GFR > 60 Random Glucose 133 H (60-115) mg/dL Lactic Acid (0.5-2.0) mmol/L Calcium 8.7 (8.4-10.2) mg/dL Magnesium 1.6 (1.6-2.6) mg/dL Total Bilirubin 1.6 H (0.0-1.0) mg/dL AST 26 (5-37) U/L ALT 18 (0-40) U/L Alkaline Phosphatase 209 H (39-117) U/L Lactate Dehydrogenase 235 (118-273) U/L Troponin I High Sens (<3.5-35.0) ng/L B-Natriuretic Peptide 213 H (<100) pg/mL Total Protein 5.5 L (6.5-8.0) g/dL Albumin 3.4 L (3.5-5.0) g/dL Urine Color Urine Appearance Urine pH (5.0-9.0) Ur Specific [place] (1.005-1.025) Urine Protein (Neg-Trace) mg/dL Urine Glucose (UA) (Negative) mg/dL Urine Ketones (Negative) mg/dL Urine Blood (Negative) Urine Nitrite (Negative) Ur Leukocyte Esterase (Negative) Urine RBC (0-2) /HPF Urine WBC (0-5) /HPF Ur Squamous Epith Cells (0-2) /HPF Urine Bacteria (None Seen) Hyaline Casts (0-2) /LPF Influenza Type A (PCR) (Negative) Influenza Type B (PCR) (Negative) RSV RNA Qual (PCR) (Negative) SARS-CoV-2 RNA (RT-PCR) (Negative) 04/12/22 04/12/22 04/12/22 Range/Units 10:21 10:21 10:21 WBC (4.8-10.8) X10*3/uL RBC (4.60-5.80) X10*6/uL Hgb (14.0-18.0) g/dl Hct (42.0-52.0) % MCV (80.0-98.0) fL MCH (27.0-33.0) pg MCHC (31.0-36.0) g/dl RDW (11.0-16.0) % Plt Count (160-400) X10*3/uL MPV (9.4-12.4) fL Immature Gran % (Auto) Neut % (Auto) Lymph % (Auto) [place] % (Auto) Eos % (Auto) Baso % (Auto) Lymph # (Auto) [place] # (Auto) Eos # (Auto) Baso # (Auto) Abs Immat Gran (auto) Absolute Neuts (auto) Absolute Nucleated RBC (0.0-0.012) X10*3/uL Nucleated RBC % (auto) (0.0-0.2) /100WBC Neutrophils % (Manual) (45-73) % Band Neutrophils % (3-5) % Lymphocytes % (Manual) (20-40) % Monocytes % (Manual) (2-11) % Abs Neuts (Manual) (2.0-8.3) X10*3/uL Lymphocytes # (Manual) (1.2-4.9) X10*3/uL Platelet Estimate (NORMAL) Plt Morphology Comment RBC Morphology Hypochromasia /OIF Macrocytosis /OIF PT 12.5 (10.0-13.1) SEC INR 1.1 (0.9-1.1) Sodium (135-145) mmol/L Potassium (3.3-5.1) mmol/L Chloride (96-108) mmol/L Carbon Dioxide (22-29) mmol/L Anion Gap (12-20) BUN (9-16) mg/dL Creatinine (0.5-1.4) mg/dL Estim Creat Clear Calc Estimated GFR Random Glucose (60-115) mg/dL Lactic Acid (0.5-2.0) mmol/L Calcium (8.4-10.2) mg/dL Magnesium (1.6-2.6) mg/dL Total Bilirubin (0.0-1.0) mg/dL AST (5-37) U/L ALT (0-40) U/L Alkaline Phosphatase (39-117) U/L Lactate Dehydrogenase (118-273) U/L Troponin I High Sens 7.7 (<3.5-35.0) ng/L B-Natriuretic Peptide (<100) pg/mL Total Protein (6.5-8.0) g/dL Albumin (3.5-5.0) g/dL Urine Color Urine Appearance Urine pH (5.0-9.0) Ur Specific [place] (1.005-1.025) Urine Protein (Neg-Trace) mg/dL Urine Glucose (UA) (Negative) mg/dL Urine Ketones (Negative) mg/dL Urine Blood (Negative) Urine Nitrite (Negative) Ur Leukocyte Esterase (Negative) Urine RBC (0-2) /HPF Urine WBC (0-5) /HPF Ur Squamous Epith Cells (0-2) /HPF Urine Bacteria (None Seen) Hyaline Casts (0-2) /LPF Influenza Type A (PCR) NEGATIVE (Negative) Influenza Type B (PCR) NEGATIVE (Negative) RSV RNA Qual (PCR) NEGATIVE (Negative) SARS-CoV-2 RNA (RT-PCR) NEGATIVE (Negative) 04/12/22 04/12/22 Range/Units 10:52 11:25 WBC (4.8-10.8) X10*3/uL RBC (4.60-5.80) X10*6/uL Hgb (14.0-18.0) g/dl Hct (42.0-52.0) % MCV (80.0-98.0) fL MCH (27.0-33.0) pg MCHC (31.0-36.0) g/dl RDW (11.0-16.0) % Plt Count (160-400) X10*3/uL MPV (9.4-12.4) fL Immature Gran % (Auto) Neut % (Auto) Lymph % (Auto) [place] % (Auto) Eos % (Auto) Baso % (Auto) Lymph # (Auto) [place] # (Auto) Eos # (Auto) Baso # (Auto) Abs Immat Gran (auto) Absolute Neuts (auto) Absolute Nucleated RBC (0.0-0.012) X10*3/uL Nucleated RBC % (auto) (0.0-0.2) /100WBC Neutrophils % (Manual) (45-73) % Band Neutrophils % (3-5) % Lymphocytes % (Manual) (20-40) % Monocytes % (Manual) (2-11) % Abs Neuts (Manual) (2.0-8.3) X10*3/uL Lymphocytes # (Manual) (1.2-4.9) X10*3/uL Platelet Estimate (NORMAL) Plt Morphology Comment RBC Morphology Hypochromasia /OIF Macrocytosis /OIF PT (10.0-13.1) SEC INR (0.9-1.1) Sodium (135-145) mmol/L Potassium (3.3-5.1) mmol/L Chloride (96-108) mmol/L Carbon Dioxide (22-29) mmol/L Anion Gap (12-20) BUN (9-16) mg/dL Creatinine (0.5-1.4) mg/dL Estim Creat Clear Calc Estimated GFR Random Glucose (60-115) mg/dL Lactic Acid 2.4 H* (0.5-2.0) mmol/L Calcium (8.4-10.2) mg/dL Magnesium (1.6-2.6) mg/dL Total Bilirubin (0.0-1.0) mg/dL AST (5-37) U/L ALT (0-40) U/L Alkaline Phosphatase (39-117) U/L Lactate Dehydrogenase (118-273) U/L Troponin I High Sens (<3.5-35.0) ng/L B-Natriuretic Peptide (<100) pg/mL Total Protein (6.5-8.0) g/dL Albumin (3.5-5.0) g/dL Urine Color Dark Yellow Urine Appearance Clear Urine pH 6.0 (5.0-9.0) Ur Specific [place] 1.025 (1.005-1.025) Urine Protein 100 (2+) H (Neg-Trace) mg/dL Urine Glucose (UA) Negative (Negative) mg/dL Urine Ketones Trace (Negative) mg/dL Urine Blood Negative (Negative) Urine Nitrite Negative (Negative) Ur Leukocyte Esterase Negative (Negative) Urine RBC 0-2 (0-2) /HPF Urine WBC 0-5 (0-5) /HPF Ur Squamous Epith Cells 0-2 (0-2) /HPF Urine Bacteria None Seen (None Seen) Hyaline Casts 0-2 (0-2) /LPF Influenza Type A (PCR) (Negative) Influenza Type B (PCR) (Negative) RSV RNA Qual (PCR) (Negative) SARS-CoV-2 RNA (RT-PCR) (Negative) Independent Interpretation I performed an independent interpretation of an: EKG Interpretation: Sinus tachycardia, HR-102, no STEMI, RBBB consistent with baseline, [place] within normal limits, [id number] Radiology Impression Radiologist Impression: My interpretation is slightly different from the radiologist's impression in that patient's left distal clavicular fracture was associated with a fall on 03/04 and I suspect given clinical exam, patient stated complaints and chest x- ray findings that there is evidence of vascular congestion. External Record Review External record reviewed: Inpatient record, Outpatient record and Prior outpatient labs Prescription Management I considered prescription management with: Antibiotic Antibiotics were given Critical Care Time Critical Care Time Critical Care Time: Yes Total Critical Care Time: 60 Attestation: I personally attest to this time spent taking care of the patient. Discharge Plan Discharge Clinical Impression: Pulmonary edema, Fever of unknown origin (FUO), Pancytopenia Prescriptions: No Action baclofen 10 mg tablet 10 mg PO TID 30 Days Qty: 90 8RF baclofen 20 mg tablet 20 mg PO BID PRN (Reason: pain (scale score 4-6)) 30 Days Qty: 60 11RF tizanidine 4 mg tablet 4 mg PO TID PRN (Reason: muscle spasticity) 30 Days Qty: 90 11RF diltiazem HCl 240 mg capsule,extended release 24hr 240 mg PO DAILY Qty: 90 3RF oxycodone 5 mg tablet 5 mg PO Q4H PRN (Reason: pain) 30 Days Qty: 150 0RF Rx Instructions: Partial Fill upon patient request. Patient may take up to 5 pills a day. amantadine HCl 100 mg tablet 1 tab PO TID pantoprazole 40 mg tablet,delayed release (DR/EC) 40 mg PO BID tizanidine 2 mg tablet 2 mg PO BID PRN ondansetron HCl 4 mg tablet 4 mg PO Q8H ropinirole 3 mg tablet 3 mg PO Rx Instructions: starting to reduce to stop selegiline HCl 5 mg tablet 5 mg PO BID Rx Instructions: administer with breakfast and lunch levothyroxine 50 mcg tablet 50 mcg PO DAILY lidocaine 5 % adhesive patch,medicated 1 patch topical DAILY Rx Instructions: leave on most painful area for up to 12 hrs diclofenac sodium 1 % gel 2 g topical QID Rx Instructions: apply to single elbow, wrist or hand; for hand includes palm/fingers/back of hand carbidopa-levodopa 25-100 mg tablet 1 tab PO QID tamsulosin 0.4 mg capsule 0.4 mg PO BEDTIME lisinopril 10 mg tablet 10 mg PO DAILY polyethylene glycol 3350 [Miralax] 17 gram/dose powder 17 g PO DAILY ibuprofen 200 mg tablet 200 mg PO Q6H PRN finasteride 5 mg tablet 5 mg PO DAILY multivitamin [Daily Multi-Vitamin] Tablet 1 tab PO DAILY acetaminophen [Tylenol Arthritis Pain] 650 mg tablet extended release 650 mg PO Q8H fluticasone propionate 50 mcg/actuation spray,suspension intranasal pregabalin 75 mg capsule PO duloxetine 60 mg capsule,delayed release(/EC) 60 mg PO DAILY pregabalin 300 mg capsule 300 mg PO BID memantine 10 mg tablet 10 mg PO BID trazodone 50 mg tablet 50 mg PO BEDTIME donepezil 10 mg tablet 0 mg PO
[2022-04-12 10:28] LABS: Hematocrit 38.8 % (42.0-52.0); Hemoglobin 12.4 g/dl (14.0-18.0); Mean Corpuscular Hemoglobin 32.6 pg (27.0-33.0); Mean Corpuscular Volume 102.1 fL (80.0-98.0); Mean Platelet Volume 9.4 fL (9.4-12.4); Platelet Count 125 X10*3/uL (160-400); Red Cell Distribution Width 12.7 % (11.0-16.0)
[2022-04-12 10:30] LABS: WBC ABN SCTR FOR CBC 1
[2022-04-12 10:31] LABS: White Blood Count 2.3 X10*3/uL (4.8-10.8)
[2022-04-12 10:34] LABS: INTERNATIONAL NORM RATIO 1.1 (0.9-1.1); Prothrombin Time 12.5 SEC (10.0-13.1)
--- OUTSIDE RECORDS SUMMARY | 2022-04-12 10:34 | XMS_ITS ---
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 fibromatosis ALLERGIES Substance Reaction Event Type Date Status Keflex itching, SOB Drug Allergy Mar, Active Lactose (Allergy) Severe Diarrhea Drug Allergy Mar, Active Vancomycin HCl Unknown Drug Allergy Mar, Active Bactrim Unknown Drug Allergy Mar, Active ENCOUNTERS Encounter Location Date Diagnosis [address] Mar, [place] [address] Mar, Zaria ntar fascial [place] fibromatosis M7 2.2 ; [address] Pain in left keri t M79.672 ; Calcan eal spur, left foot M77.32 ; Other myositis o f left foot M60.872 and Bursitis of left foot M77.[address] Oct, Non -pressure chronic [place] [address] right foot limit ed to breakdown of ski n L97.[address] Sep, Non -pressure chronic [place] [address] right foot with fat layer exposed L9 7.512 [facility] [address] Sep, Ing rowing nail L60.0 [place] [address] [facility] [address] Jun, [place] [address] [facility] [address] [address] Jun, Abscess o f toe, right [place] L02.611 and Cell ulitis [address] of right toe L03 .[address] Jan, Abs cess of toe, right [place] L02.611 and Edilma lulitis [address] of right toe L03 .[address] Oct, Non -pressure chronic [place] ulcer [place] [address] right foot limit ed to breakdown of ski n L97.[address] Sep, Non -pressure chronic [place] [address] right foot with fat layer exposed L9 7.[address] Sep, Ing rowing nail L60.0 [place] [address] Sep, Ing rowing nail L60.0 [place] [address] Jul, Abs cess of toe, right [place] L02.611 [address] [facility] [address] [facility] [address] Jul, [place] [address] Jul, [place] [address] [facility] [address] [address] Jul, Abscess o f toe, left [place] L02.612 and Cell ulitis [address] of left toe L03. [address] [address] Nov, [place] [address] Sep, [place] [address] [facility] [address] August, Abs cess of toe, right [place] L02.611 [address] [facility] [address] Oct, Par onychia 681.11 [place] [address] Jul, Par onychia 681.11 [facility] [place] [facility] - Toe s 681.10 [address] [facility] Apr, Paronychia 681.1 1 [place] [address] Cell[facility] is - Toes 681.[address] Apr, [place] [address] Mar, [facility] [place] [address] Mar, [place] [address] Mar, Par onychia 681.11 and [facility] [place] [facility] - Toe s 681.10 [phone] IMMUNIZATIONS Vaccine Route Administration Date Status COVID-19 [employer] Unknown Mar 04, 2021 Administered Influenza Unknown Jan 16, 2017 Administered SOCIAL HISTORY Qualifiers Date Former Smoker 2000 REASON FOR REFERRAL Referring Provider First Name Enrrique Referring Provider Last Name Irvin Referred Organization [facility] Referred Provider Black Seymour Referred Address [address] [place] [phone] Referred Provider Specialty Podiatry Referring Provider First Name Black Referring Provider Last Name Dawn Referring Provider Specialty Podiatry Referring Provider email Referred Organization [facility] Referred Provider Black Seymour Referred Address [address] [place] [phone] Referred Provider Specialty Podiatry FUNCTIONAL STATUS PLAN OF CARE Activity Details Referral [address] [place] [address] [place], [address], [email or web address], Referral [address] [place] [address] [place], [address], [email or web address], [phone] Pending Test X ray : Foot, left 3V Future/Pending Procedure 60989- Debride <25 sq cm Future/Pending Procedure [id number] SKIN/TISSUE Future/Pending Procedure [id number]-GQG Future/Pending Procedure 24940 I&D ABSCESS- SIMPLE,SI NGLE Future/Pending Procedure [id number] I&D ABSCESS- SIMPLE,SI NGLE Future/Pending Procedure 47776- Debride <25 sq cm Future/Pending Procedure [id number]-XIMSUEZ SKIN/TISSUE Future/Pending Procedure [id number]-SAV Future/Pending Procedure 19799-Pwyxyrqm Plate Future/Pending Procedure 65939 I&D ABSCESS- SIMPLE,SI NGLE Future/Pending Procedure 20626 I&D ABSCESS- SIMPLE,SI NGLE Future/Pending Procedure [id number] I&D ABSCESS- SIMPLE,SI NGLE Future/Pending Procedure [id number] I&D ABSCESS- SIMPLE,SI NGLE Future/Pending Procedure 35591 I&D ABSCESS- SIMPLE,SI NGLE Future/Pending Procedure [id number] I&D ABSCESS- SIMPLE,SI NGLE Future/Pending Procedure [id number] I&D ABSCESS- SIMPLE,SI NGLE VITAL SIGNS Height [...] Ordered Result Body Site DEBRIDE SKIN/TISSUE October 09, 2017 DRAINAGE OF SKIN ABSCESS July 17, 2014 DRAINAGE OF SKIN ABSCESS Apr 23, 2014 DRAINAGE OF SKIN ABSCESS June 23, 2019 Avulsion Plate September 18, 2017 STERILE TRAY September 25, 2017 DRAINAGE OF SKIN ABSCESS August 04, 2016 STERILE TRAY September 23, 2019 DRAINAGE OF SKIN ABSCESS July 27, 2016 DRAINAGE OF SKIN ABSCESS September 10, 2015 REMOVAL OF NAIL BED September 23, 2019 ACTIVE WOUND CARE/20 CM OR < October 21, 2019 REMOVAL OF NAIL BED September 25, 2017 DRAINAGE OF SKIN ABSCESS Jan 21, 2019 DEBRIDE SKIN/TISSUE October 07, 2019 X-RAY EXAM OF LEFT FOOT 3V Mar 18, 2021 ACTIVE WOUND CARE/20 CM OR < October 23, 2017 DRAINAGE OF SKIN ABSCESS 2014 DRAINAGE OF SKIN ABSCESS Mar 17, 2014 RESULTS No Results REASON FOR VISIT Insurance Providers [facility] Health Member Patient Patient Patient Patient Patient Subscriber Subscriber Subscriber Group Insurance Plan Plan Plan Plan ID Relationship Address Phone Name Date of ID Name Date of No Type Insurance Insurance Insurance Coverage to Subscriber Address Phone Name Dates [facility] [phone] [facility] Kevan [id number] [facility] [address] [facility] [address] [facility] [address] Unicare [phone] Unicare self Kevan [id number] [address] [place] [address] Medicare National [phone] Medicare self Kevan [id number] [facility] [address] [employer] [address] [facility] [address] MEDICAL (GENERAL) HISTORY Type Description Date Medical [...]
[2022-04-12 10:54] LABS: Alanine Aminotransferase 18 U/L (0-40); Albumin Level 3.4 g/dL (3.5-5.0); Alkaline Phosphatase 209 U/L (39-117); Anion Gap 13 (12-20); Aspartate Amino Transferase 26 U/L (5-37); Bilirubin Total 1.6 mg/dL (0.0-1.0); Blood Urea Nitrogen 27 mg/dL (9-16); Calcium 8.7 mg/dL (8.4-10.2); Carbon Dioxide 31 mmol/L (22-29); Chloride 102 mmol/L (96-108); Creatinine Clr Calc Pharmacy 74.7; Estimated Glomerular Filt Rate > 60; Glucose Random 133 mg/dL (60-115); Sodium 142 mmol/L (135-145); Total Protein 5.5 g/dL (6.5-8.0)
[2022-04-12 10:59] LABS: Appearance Urine Clear; Color Urine Dark Yellow; Glucose Urine UA Negative (Negative); Leukocyte Esterase Urine Negative (Negative); Nitrite Urine Negative (Negative); Specific Gravity - Urine 1.025 (1.005-1.025); UMIC TRIGGER UACC YES; Urine Blood Negative (Negative); Urine Ketones Trace mg/dL (Negative); Urine Protein 100 (2+) mg/dL (Neg-Trace)
[2022-04-12 10:59] LABS: B Type Natriuretic Peptide 213 pg/mL (<100)
[2022-04-12 11:01] LABS: Troponin-I High Sensitivity 7.7 ng/L (<3.5-35.0)
[2022-04-12] MEDS: Acetaminophen 325 MG TABLET 975 MG PO (11:01)
[2022-04-12 11:02] LABS: Neutrophils Percent Manual 66 % (45-73)
[2022-04-12 11:05] LABS: Influenza A PCR NEGATIVE (Negative); Influenza B PCR NEGATIVE (Negative); Resp Syncy Virus RNA Qual PCR NEGATIVE (Negative); SARS COV2 PCR INHOUSE NEGATIVE (Negative)
[2022-04-12 11:06] LABS: Band Neutrophils Percent 22 % (3-5); Lymphocytes Absolute Manual 0.2 X10*3/uL (1.2-4.9); Lymphocytes Percent Manual 10 % (20-40); Monocytes Percent Manual 2 % (2-11)
[2022-04-12 11:08] LABS: Hypochromasia 1+ (5-14) /OIF; Macrocytosis 1+ (5-14) /OIF; Platelet Estimate DECREASED (NORMAL); Platelet Morphology Comment NORMAL; RBC Morphology NOTED
[2022-04-12 11:14] LABS: Bacteria Urine None Seen (None Seen); Hyaline Casts Urine 0-2 /LPF (0-2); RBC Urine 0-2 /HPF (0-2); Squamous Epithelial Cell Urine 0-2 /HPF (0-2); WBC Urine 0-5 /HPF (0-5)
[2022-04-12] MEDS: Furosemide 40 MG/4 ML VIAL IVPUSH (11:30)
[2022-04-12] MEDS: levoFLOXacin/D5W 750 MG/150 ML PIGGYBACK 100 MG IV (11:30)
[2022-04-12] MEDS: oxyCODONE HCl Immed Release 5 MG TABLET PO ×3 (11:31→22:52)
--- NOTE | 2022-04-12 11:36 | PC.NURSE ---
sr on monitor, warm to the touch, medicated as ordered, skin pink and dry, alert, family at bedside, aware of care plan
[2022-04-12 11:53] LABS: Lactic Acid 2.4 mmol/L (0.5-2.0)
[2022-04-12 11:58] LABS: Lactate Dehydrogenase 235 U/L (118-273); Magnesium 1.6 mg/dL (1.6-2.6)
[2022-04-12 12:15] LABS: Procalcitonin 15.29 ng/mL
--- NOTE | 2022-04-12 12:16 | PHA.MEDREC ---
Pharmacy Consult ? Medication Reconciliation Pharmacy has completed the medication reconciliation. Patient's Berenice Ventura had brought list of medications and confirmed with her and patient.
[2022-04-12] MEDS: 0.9 % Sodium Chloride 500 ML IV (13:08)
--- NOTE | 2022-04-12 13:25 | PM.IMHP ---
History of Present Illness Date of Service: 04/12/22 Chief Complaint: Fever 71-year-old male with a history of Parkinson's failed back syndrome and hypothyroidism presents with 3-4 days of worsening shortness of breath and generalized body aches. He also complained of dry cough. states subjective fevers to 101 at home that coincide with onset of shortness of breath. In the emergency room, he has an O2 requirement which is new along with fevers to 103. Chest x-ray read as unremarkable; labs significant for bandemia of 22%. Review of Systems Review of Systems: Denies chest pain Admit shortness of breath which is worsening Denies nausea vomiting diarrhea Admits to fevers of 101 at home [facility] Medical History Bilateral primary osteoarthritis of knee BPH (benign prostatic hyperplasia) Chronic pain syndrome Failed back syndrome of cervical spine GERD (gastroesophageal reflux disease) Hard of hearing HTN (hypertension) Hypertensive heart disease Hypothyroidism PAC (premature atrial contraction) Parkinsons Restless leg syndrome Social History Alcohol intake: never Patient Tobacco Use Status: Never used Tobacco Advance Directives: Yes Advance Directives Information Provided: No Advance Directives on File: No Advance Directives Date on File: 01/19/20 Meds Allergies Allergy/AdvReac Type Severity Reaction Status Date / Time Sulfa (Sulfonamide Allergy Severe HIVES/DIFF. Verified 03/27/22 11:11 Antibiotics) BREATHING vancomycin [VANCOMYCIN] Allergy Severe SHORTNESS Verified 03/27/22 11:11 OF BREATH cephalexin [CEPHALEXIN] Allergy Intermediate SHORTNESS Verified 03/27/22 11:11 OF BREATH DAIRY PRODUCTS AdvReac Intermediate GI Uncoded 03/27/22 11:11 UPSET/DIARRHEA Active Medications: Current Medications Acetaminophen (Acetaminophen 325 Mg Tablet) 650 mg PO Q6H PRN PRN Reason: Pain, Mild (Pain Scale 1-3) Baclofen (Baclofen 20 Mg Tablet) 20 mg PO BID PRN PRN Reason: pain (scale score 4-6) Buspirone HCl (Buspirone Hcl 10 Mg Tablet) 10 mg PO BID PRN PRN Reason: Anxiety Carbidopa/Levodopa (Carbidopa/Levodopa 25/100 Tablet) 1 tab PO QID DEBBIE Diltiazem HCl (Diltiazem Hcl Cd 240 Mg Cap.Er.Deg) 240 mg PO DAILY [facility]; Protocol Donepezil HCl (Donepezil Hcl 10 Mg Tablet) 10 mg PO BEDTIME [facility] Duloxetine HCl (Duloxetine Hcl 60 Mg Capsule.Dr) 60 mg PO DAILY [facility] Enoxaparin Sodium (Enoxaparin Sodium 40 Mg/0.4 Ml Syringe) 40 mg SUBCUT Q24H [facility] Finasteride (Finasteride 5 Mg Tablet) 5 mg PO DAILY [facility] Sodium Chloride (Ns) 500 mls @ 500 mls/hr IV .Q1H DEBBIE Stop: 04/12/22 13:29 Last Admin: 04/12/22 13:08 Dose: 500 mls/hr Lactated Ringer's (Lr) 1,000 mls @ 125 mls/hr IVCONT .Q8H [facility] Doxycycline Hyclate 100 mg/ (Sodium Chloride) 250 mls @ 166.67 mls/hr IV Q12H [facility] Levothyroxine Sodium (Levothyroxine Sodium 50 Mcg Tablet) 50 mcg PO DAILY@0600 [facility] Lidocaine (Lidocaine 4 % Patch Adh..Patch) 1 patch TRANSDERMA DAILY [facility] Lisinopril (Lisinopril 20 Mg Tablet) 20 mg PO DAILY [facility]; Protocol Memantine (Memantine Hcl 10 Mg Tablet) 10 mg PO BID [facility] Multivitamins/Vitamin C (Multivitamin Tablet) 1 tab PO DAILY [facility] Omeprazole (Omeprazole 20 Mg Capsule.Dr) 20 mg PO DAILY@0630 [facility] Ondansetron HCl (Ondansetron Hcl 4 Mg/2 Ml Vial) 4 mg IVPUSH Q8H PRN PRN Reason: Nausea and Vomiting Pharmacy Consult (Consult Rx Perform Med Rec) 1 each MISCELLANE ONCE PRN PRN Reason: Consult order Pregabalin (Pregabalin 150 Mg Capsule) 300 mg PO BID [facility] Ropinirole HCl (Ropinirole Hcl 2 Mg Tablet) 12 mg PO BEDTIME [facility] Ropinirole HCl (Ropinirole Hcl 2 Mg Tablet) 6 mg PO DAILY@1200 [facility] Sodium Chloride (0.9 % Sodium Chloride Flush 3 Ml Syringe) 3 ml IVFLUSH QSHIFT [facility] Tamsulosin HCl (Tamsulosin Hcl 0.4 Mg Capsule) 0.4 mg PO BID [facility] Tizanidine HCl (Tizanidine Hcl 4 Mg Tablet) 4 mg PO TID PRN PRN Reason: muscle spasticity Trazodone HCl (Trazodone Hcl 100 Mg Tablet) 300 mg PO BEDTIME PRN PRN Reason: insomnia Vitamin D (Cholecalciferol (Vitamin D3) 25 Mcg Tablet) 50 mcg PO DAILY [facility] Home Medications Medication Instructions Recorded Confirmed Last Taken Type carbidopa 25 mg-levodopa 100 mg 1 tab PO QID 01/21/20 04/12/22 04/12/22 09:00 History tablet diclofenac sodium 1 % topical gel 2 g topical QID PRN Inflammation 01/21/20 04/12/22 Unknown History finasteride 5 mg tablet 5 mg PO DAILY 01/21/20 04/12/22 04/12/22 09:00 History levothyroxine 50 mcg tablet 50 mcg PO DAILY@0600 01/21/20 04/12/22 04/12/22 06:00 History lidocaine 5 % topical patch 1 patch topical DAILY 01/21/20 04/12/22 04/11/22 History multivitamin (Daily Multi-Vitamin 1 tab PO DAILY 01/21/20 04/12/22 04/12/22 09:00 History tablet) tamsulosin 0.4 mg capsule 0.4 mg PO BID 01/21/20 04/12/22 04/12/22 09:00 History ondansetron HCl 4 mg tablet 4 mg PO Q8H PRN Nausea 09/15/20 04/12/22 Unknown History pantoprazole 40 mg tablet,delayed 40 mg PO DAILY@0630 09/15/20 04/12/22 04/12/22 06:30 History release ropinirole 3 mg tablet 12 mg PO BEDTIME 10/21/20 04/12/22 04/11/22 History fluticasone propionate 50 1 spray intranasal BID 10/27/20 04/12/22 04/12/22 09:00 History mcg/actuation nasal spray,suspension donepezil 10 mg tablet 10 mg PO BEDTIME 10/07/21 04/12/22 04/11/22 History duloxetine 60 mg capsule,delayed 60 mg PO DAILY 10/07/21 04/12/22 04/12/22 09:00 History release memantine 10 mg tablet 10 mg PO BID 10/07/21 04/12/22 04/12/22 09:00 History pregabalin 300 mg capsule 300 mg PO BID 10/07/21 04/12/2222 History amantadine HCl 100 mg tablet 1 tab PO TID 04/12/22 04/12/22 04/12/22 09:00 History buspirone 10 mg tablet 1 tab PO BID PRN Anxiety 04/12/22 04/12/22 04/12/22 09:00 History cholecalciferol (vitamin D3) 50 50 mcg PO DAILY 04/12/22 04/12/22 04/12/22 09:00 History mcg (2,000 unit) tablet (Vitamin D3) ferrous sulfate 325 mg (65 mg 325 mg PO DAILY 04/12/22 04/12/22 04/11/22 History iron) tablet,delayed release lisinopril 20 mg tablet 1 tab PO DAILY 04/12/22 04/12/22 04/12/22 09:00 History ropinirole 3 mg tablet 6 mg PO DAILY@1200 04/12/22 04/12/22 04/11/22 History trazodone 100 mg tablet 3 tab PO BEDTIME PRN insomnia 04/12/22 04/12/22 04/11/22 History Physical Exam Vital Signs and Narrative: Vital Signs: Last Vital Signs Temp 100.7 F H 04/12/22 12:18 Pulse 92 04/12/22 12:18 Resp 19 04/12/22 12:18 BP 114/60 04/12/22 12:21 Pulse Ox 94 04/12/22 12:18 O2 Del Method 04/12/22 12:18 O2 Flow Rate 2 04/12/22 12:18 BMI result Body Mass Index 31.3 Const: Other: Awake alert no acute distress lying comfortable in bed HEENT: Other: Throat clear; membranes moist Resp: Other: Diminished at bases with crackles left base Cardio: Other: No S4; positive S1-S2; no S3 murmurs rubs or gallops GI: Other: Soft nontender nondistended with normoactive bowel sounds Skin: Other: No rashes or lesions Extrem: Other: No edema bilaterally Results Labs CBC and Chem 7: 04/12/22 10:21 04/12/22 10:21 Labs: Laboratory Results - last 24 hr 04/12/22 04/12/22 04/12/22 10:21 10:21 10:21 MCV 102.1 H MCH 32.6 MCHC 32.0 RDW 12.7 Plt Count 125 L D MPV 9.4 Immature Gran % (Auto) Cancelled Neut % (Auto) Cancelled Lymph % (Auto) Cancelled Warren % (Auto) Cancelled Eos % (Auto) Cancelled Baso % (Auto) Cancelled Lymph # (Auto) Cancelled Warren # (Auto) Cancelled Eos # (Auto) Cancelled Baso # (Auto) Cancelled Abs Immat Gran (auto) Cancelled Absolute Neuts (auto) Cancelled Absolute Nucleated RBC 0.000 Nucleated RBC % (auto) 0.0 Neutrophils % (Manual) 66 Band Neutrophils % 22 H Lymphocytes % (Manual) 10 L Monocytes % (Manual) 2 Abs Neuts (Manual) 2.0 Lymphocytes # (Manual) 0.2 L Platelet Estimate DECREASED Plt Morphology Comment NORMAL RBC Morphology NOTED Hypochromasia 1+ (5-14) Macrocytosis 1+ (5-14) PT INR Anion Gap 13 Estim Creat Clear Calc 74.7 Estimated GFR > 60 Random Glucose 133 H Lactic Acid Calcium 8.7 Magnesium 1.6 Total Bilirubin 1.6 H AST 26 ALT 18 Alkaline Phosphatase 209 H Lactate Dehydrogenase 235 Total Creatine Kinase 120 Troponin I High Sens B-Natriuretic Peptide 213 H Total Protein 5.5 L Albumin 3.4 L Procalcitonin Urine Color Urine Appearance Urine pH Ur Specific [place] Urine Protein Urine Glucose (UA) Urine Ketones Urine Blood Urine Nitrite Ur Leukocyte Esterase Urine RBC Urine WBC Ur Squamous Epith Cells Urine Bacteria Hyaline Casts Influenza Type A (PCR) Influenza Type B (PCR) RSV RNA Qual (PCR) SARS-CoV-2 RNA (RT-PCR) 04/12/22 04/12/22 04/12/22 10:21 10:21 10:21 MCV MCH MCHC RDW Plt Count MPV Immature Gran % (Auto) Neut % (Auto) Lymph % (Auto) Warren % (Auto) Eos % (Auto) Baso % (Auto) Lymph # (Auto) Warren # (Auto) Eos # (Auto) Baso # (Auto) Abs Immat Gran (auto) Absolute Neuts (auto) Absolute Nucleated RBC Nucleated RBC % (auto) Neutrophils % (Manual) Band Neutrophils % Lymphocytes % (Manual) Monocytes % (Manual) Abs Neuts (Manual) Lymphocytes # (Manual) Platelet Estimate Plt Morphology Comment RBC Morphology Hypochromasia Macrocytosis PT 12.5 INR 1.1 Anion Gap Estim Creat Clear Calc Estimated GFR Random Glucose Lactic Acid Calcium Magnesium Total Bilirubin AST ALT Alkaline Phosphatase Lactate Dehydrogenase Total Creatine Kinase Troponin I High Sens 7.7 B-Natriuretic Peptide Total Protein Albumin Procalcitonin Urine Color Urine Appearance Urine pH Ur Specific [place] Urine Protein Urine Glucose (UA) Urine Ketones Urine Blood Urine Nitrite Ur Leukocyte Esterase Urine RBC Urine WBC Ur Squamous Epith Cells Urine Bacteria Hyaline Casts Influenza Type A (PCR) NEGATIVE Influenza Type B (PCR) NEGATIVE RSV RNA Qual (PCR) NEGATIVE SARS-CoV-2 RNA (RT-PCR) NEGATIVE 04/12/22 04/12/22 04/12/22 10:21 10:52 11:25 MCV MCH MCHC RDW Plt Count MPV Immature Gran % (Auto) Neut % (Auto) Lymph % (Auto) Warren % (Auto) Eos % (Auto) Baso % (Auto) Lymph # (Auto) Warren # (Auto) Eos # (Auto) Baso # (Auto) Abs Immat Gran (auto) Absolute Neuts (auto) Absolute Nucleated RBC Nucleated RBC % (auto) Neutrophils % (Manual) Band Neutrophils % Lymphocytes % (Manual) Monocytes % (Manual) Abs Neuts (Manual) Lymphocytes # (Manual) Platelet Estimate Plt Morphology Comment RBC Morphology Hypochromasia Macrocytosis PT INR Anion Gap Estim Creat Clear Calc Estimated GFR Random Glucose Lactic Acid 2.4 H* Calcium Magnesium Total Bilirubin AST ALT Alkaline Phosphatase Lactate Dehydrogenase Total Creatine Kinase Troponin I High Sens B-Natriuretic Peptide Total Protein Albumin Procalcitonin 15.29 Urine Color Dark Yellow Urine Appearance Clear Urine pH 6.0 Ur Specific [place] 1.025 Urine Protein 100 (2+) H Urine Glucose (UA) Negative Urine Ketones Trace Urine Blood Negative Urine Nitrite Negative Ur Leukocyte Esterase Negative Urine RBC 0-2 Urine WBC 0-5 Ur Squamous Epith Cells 0-2 Urine Bacteria None Seen Hyaline Casts 0-2 Influenza Type A (PCR) Influenza Type B (PCR) RSV RNA Qual (PCR) SARS-CoV-2 RNA (RT-PCR) Imaging Radiologist's Impressions: Impressions Chest X-Ray 04/12/22 10:25 IMPRESSION: No evidence for acute disease in the chest. Left distal clavicle fracture Assessment and Plan (1) Fever of unknown origin (FUO): Status: Acute (2) HTN (hypertension): Status: Acute (3) Parkinsons: Status: Acute Plan 71-year-old male with history of Parkinson's disease presents with 3-5 days of worsening malaise and shortness of breath at with fevers to 101. In the emergency room found to be pancytopenic with a bandemia of 22%. X-ray read as negative 1. FUO with bandemia -exam consistent with left lower lobe infiltrate -Levaquin/doxycycline -supplemental O2 to maintain sats greater than equal to 92% -ID consult -barrientos cultured await results 2. Hypertension -acceptable control on current therapies -adjust as indicated 3. Parkinson's -continue home therapies Full code Ashlee Will require 2 inpatient midnights going forward for investigation of fever of unknown origin and treat likely pneumonia. This cannot be done in a lesser acute setting Time Spent With Patient Time: Total time managing care of this patient today ____ minutes. Quality Stroke Does the patient have a stroke diagnosis?: No VTE Prior VTE?: No VTE Risk Level:: Medical - moderate - high VTE Device Contraindication: Treatment Not Indicated VTE Drug Contraindication: N/A - Med Ordered
--- OUTSIDE RECORDS SUMMARY | 2022-04-12 13:26 | XMS_ITS ---
:1950 Author Name IrvinEnrrique Care Team Providers Name Role Phone Enrrique Bryan Unavailable Unavailable PROBLEMS Type Condition ICD9-CM Code UYS01-TZ Code Onset Condition SNO MED Code Dates Status Problem Plantar fascial M72.2 Active 1337 0002 fibromatosis ALLERGIES Substance Reaction Event Type Date Status Keflex itching, SOB Drug Allergy Mar, Active Lactose (Allergy) Severe Diarrhea Drug Allergy Mar, Active Vancomycin HCl Unknown Drug Allergy Mar, Active Bactrim Unknown Drug Allergy Mar, Active ENCOUNTERS Encounter Location Date Diagnosis [address] Mar, [place] [address] Mar, Zaria ntar fascial [place] fibromatosis M7 2.2 ; [address] Pain in left keri t M79.672 ; Calcan eal spur, left foot M77.32 ; Other myositis o f left foot M60.872 and Bursitis of left foot M77.[address] Oct, Non -pressure chronic [place] [address] right foot limit ed to breakdown of ski n L97.[address] Sep, Non -pressure chronic [place] [address] right foot with fat layer exposed L9 7.512 [facility] [address] Sep, Ing rowing nail L60.0 [place] [address] [facility] [address] Jun, [place] [address] [facility] [address] [address] Jun, Abscess o f toe, right [place] L02.611 and Cell ulitis [address] of right toe L03 .[address] Jan, Abs cess of toe, right [place] L02.611 and Edilma lulitis [address] of right toe L03 .[address] Oct, Non -pressure chronic [place] [address] right foot limit ed to breakdown of ski n L97.[address] Sep, Non -pressure chronic [place] [address] right foot with fat layer exposed L9 7.[address] Sep, Ing rowing nail L60.0 [place] [address] Sep, Ing rowing nail L60.0 [place] [address] Jul, Abs cess of toe, right [place] L02.611 [address] [facility] [address] [facility] [address] Jul, [place] [address] Jul, [place] [address] [facility] [address] [address] Jul, Abscess o f toe, left [place] L02.612 and Cell ulitis [address] of left toe L03. [address] [address] Nov, [place] [address] Sep, [place] [address] [facility] [address] August, Abs cess of toe, right [place] L02.611 [address] [facility] [address] Oct, Par onychia 681.11 [place] [address] Jul, Par onychia 681.11 [facility] [place] Cell[facility] - Toe s 681.10 [address] [facility] Apr, Paronychia 681.1 1 [place] [address] Celluit is - Toes 681.[address] Apr, [place] [address] Mar, [facility] [place] [address] Mar, [facility] [place] [address] Mar, Par onychia 681.11 and [facility] [place] Cell[facility] - Toe s 681.10 [address] IMMUNIZATIONS Vaccine Route Administration Date Status COVID-19 [employer] Keith[employer] Unknown Mar 04, 2021 Administered Influenza Unknown Jan 16, 2017 Administered SOCIAL HISTORY Qualifiers Date Former Smoker 2000 REASON FOR REFERRAL Referring Provider First Name Enrrique Referring Provider Last Name Irvin [facility]erred Organization [facility] Referred Provider Black Seymour Referred Address [address] [place] [phone] Referred Provider Specialty Podiatry Referring Provider First Name Black Referring Provider Last Name Dawn Referring Provider Specialty Podiatry Referring Provider email [email or web address] Referred Organization [facility] Referred Provider Black Seymour Referred Address [address] [place] [phone] Referred Provider Specialty Podiatry FUNCTIONAL STATUS PLAN OF CARE Activity Details Referral [address] [place] [address] [place], [address], [email or web address], Referral [address] [place] [address] [place], [address], [email or web address], Pending Test X ray : Foot, left 3V Future/Pending Procedure 01769- Debride <25 sq cm Future/Pending Procedure [id number] SKIN/TISSUE Future/Pending Procedure 13285-PRF Future/Pending Procedure 68738 I&D ABSCESS- SIMPLE,SI NGLE Future/Pending Procedure 25882 I&D ABSCESS- SIMPLE,SI NGLE Future/Pending Procedure 10585- Debride <25 sq cm Future/Pending Procedure [id number]-DJJPZVA SKIN/TISSUE Future/Pending Procedure 60061-XQI Future/Pending Procedure 27933-Bdwvisyq Plate Future/Pending Procedure 15129 I&D ABSCESS- SIMPLE,SI NGLE Future/Pending Procedure 24583 I&D ABSCESS- SIMPLE,SI NGLE Future/Pending Procedure 86135 I&D ABSCESS- SIMPLE,SI NGLE Future/Pending Procedure 32062 I&D ABSCESS- SIMPLE,SI NGLE Future/Pending Procedure 84065 I&D ABSCESS- SIMPLE,SI NGLE Future/Pending Procedure 40567 I&D ABSCESS- SIMPLE,SI NGLE Future/Pending Procedure 24381 I&D ABSCESS- SIMPLE,SI NGLE VITAL SIGNS Height [...] 23, 2019 Avulsion Plate September 18, 2017 DRAINAGE OF SKIN ABSCESS August 04, 2016 STERILE TRAY September 25, 2017 DRAINAGE OF SKIN ABSCESS July 27, 2016 DRAINAGE OF SKIN ABSCESS September 10, 2015 DRAINAGE OF SKIN ABSCESS Mar 17, 2014 ACTIVE WOUND CARE/20 CM OR < October 21, 2019 DRAINAGE OF SKIN ABSCESS 2014 DRAINAGE OF SKIN ABSCESS Jan 21, 2019 DEBRIDE SKIN/TISSUE October 07, 2019 X-RAY EXAM OF LEFT FOOT 3V Mar 18, 2021 ACTIVE WOUND CARE/20 CM OR < October 23, 2017 STERILE TRAY September 23, 2019 REMOVAL OF NAIL BED September 23, 2019 REMOVAL OF NAIL BED September 25, 2017 RESULTS No Results REASON FOR VISIT Insurance Providers [facility] Member Patient Patient Patient Patient Patient Subscriber Subscriber Subscriber Group Insurance Plan Plan Plan Plan ID Relationship Address Phone Name Date of ID Name Date of No Type Insurance Insurance Insurance Coverage to Subscriber Address Phone Name Dates Medicare National [id number] Medicare self Kevan [id number] [facility] [address] [facility] [address] [place] [address] Health New One [phone] Health New self Kevan [id number] [place] [address] [facility] [address] [facility] [place] [address] [employer] [phone] Unicare self Kevan [id number] [facility] [address] MEDICAL (GENERAL) HISTORY Type Description Date Medical [...]
[2022-04-12 13:27] LABS: Reflex Lactate? Lactic Acid Added
[2022-04-12] MEDS: Cholecalciferol (Vitamin D3) 25 MCG TABLET 50 MCG PO (13:29)
[2022-04-12] MEDS: Carbidopa/Levodopa 25/100 TABLET 1 TAB PO ×3 (13:29→21:54)
[2022-04-12] MEDS: Enoxaparin Sodium 40 MG/0.4 ML SYRINGE SUBCUT (13:29)
[2022-04-12 13:58] LABS: ~Lactic Acid-LAB USE ONLY 1.2 mmol/L (0.5-2.0)
[2022-04-12] MEDS: Lactated Ringers 1,000 ML 125 ML IVCONT (14:17)
[2022-04-12] MEDS: Doxycycline Hyclate 100 MG in 0.9 % Sodium Chloride 250 ML 166.67 MG IV (17:31)
[2022-04-12] MEDS: Baclofen 20 MG TABLET PO (17:32)
--- NOTE | 2022-04-12 17:39 | PC.NURSE ---
pt a&ox3, reporting increased in pain, medicated per provider order, pt reports that he normally takes oxycodone 5mg q4h - medication not ordered, provider notified.
--- NOTE | 2022-04-12 18:24 | PC.NURSE ---
pt is reporting increased difficulty urinating, pt bladder scanned by tech @ ~380ml, pt output ~100ml post scan, provider notified. pt requesting cason.
--- NOTE | 2022-04-12 18:25 | PC.NURSE ---
RN-RN report given to [facility].
[2022-04-12] MEDS: 0.9 % Sodium Chloride Flush 3 ML SYRINGE IVFLUSH (20:25)
[2022-04-12] MEDS: rOPINIRole HCL 2 MG TABLET 12 MG PO (21:53)
[2022-04-12] MEDS: Pregabalin 150 MG CAPSULE 300 MG PO (21:53)
[2022-04-12] MEDS: Tamsulosin HCL 0.4 MG CAPSULE PO (21:54)
[2022-04-12] MEDS: Donepezil HCl 10 MG TABLET PO (21:54)
[2022-04-12] MEDS: Memantine HCl 10 MG TABLET PO (21:54)
[2022-04-12] MEDS: TiZANidine HCL 4 MG TABLET PO (21:54)
[2022-04-12] MEDS: traZODone HCL 100 MG TABLET 300 MG PO (21:55)
[2022-04-12] MEDS: busPIRone HCl 10 MG TABLET PO (21:55)
--- NOTE | 2022-04-12 23:16 | W.PM.IDCN ---
History of Present Illness Data of Consult Service Date: 04/12/22 Requesting physician: Chris Wood Primary Care Provider: Enrrique Bryan MD HPI Reason for consult: shortness of breath and cough He presents with cough and shortness of breath. He has fever as well He has symptoms for three days. Review of Systems Review of Systems: Yes all other systems are reviewed and are negative PMFSH Past Medical History Medical History Bilateral primary osteoarthritis of knee BPH (benign prostatic hyperplasia) Chronic pain syndrome Failed back syndrome of cervical spine GERD (gastroesophageal reflux disease) Hard of hearing HTN (hypertension) Hypertensive heart disease Hypothyroidism PAC (premature atrial contraction) Parkinsons Restless leg syndrome Family History Family history: reviewed and not pertinent Social History Social History Household Members: Spouse Household Members Other:: 1 Housing: House Do you presently have visiting nurse or other home services: No Alcohol intake: current Alcohol intake frequency: holidays/special occasions only Patient Tobacco Use Status: Former Tobacco user Tobacco use type: Cigarette Smoked in Last 30 Days: No e-Cigarette/Vaping Use: Former Use Patient Interested in Nicotine Replacement: No Patient Given Instructions on How to Stop Smoking: No Second Hand Smoke Exposure: No Use of substances other than those prescribed or required for medical reasons: Yes Substance Use Type: Painkillers Substance Use Type Other:: oxycodone 5 mg q4. for the chronic back pain. Currently Displaying Signs/Symptoms of Drug Intoxication Withdrawal: No Any prior treatment program specific to substance use: No Have you been hit, kicked, punched, or otherwise hurt by someone within the past year? If so, by whom?: No Do you feel safe in your current relationship?: No Is there a partner from a previous relationship who is making you feel unsafe now?: No Are you made to feel afraid or neglected: No Advance Directives: No Advance Directives Information Provided: No Advance Directives on File: No Advance Directives Date on File: 01/19/20 Do you have thoughts of harming others: None Do you have a plan to hurt others: No Plan Recently lost weight without trying: No Eating poorly because of decreased appetite: No Nutrition Risks: No Nutritional Risk Poor oral hygiene: No Meds Allergies Allergy/AdvReac Type Severity Reaction Status Date / Time Sulfa (Sulfonamide Allergy Severe HIVES/DIFF. Verified 03/27/22 11:11 Antibiotics) BREATHING vancomycin [VANCOMYCIN] Allergy Severe SHORTNESS Verified 03/27/22 11:11 OF BREATH cephalexin [CEPHALEXIN] Allergy Intermediate SHORTNESS Verified 03/27/22 11:11 OF BREATH DAIRY PRODUCTS AdvReac Intermediate GI Uncoded 03/27/22 11:11 UPSET/DIARRHEA Active Medications: Current Medications Acetaminophen (Acetaminophen 325 Mg Tablet) 650 mg PO Q6H PRN PRN Reason: Pain, Mild (Pain Scale 1-3) Baclofen (Baclofen 20 Mg Tablet) 20 mg PO BID PRN PRN Reason: pain (scale score 4-6) Last Admin: 04/12/22 17:32 Dose: 20 mg Buspirone HCl (Buspirone Hcl 10 Mg Tablet) 10 mg PO BID PRN PRN Reason: Anxiety Last Admin: 04/12/22 21:55 Dose: 10 mg Carbidopa/Levodopa (Carbidopa/Levodopa 25/100 Tablet) 1 tab PO QID [facility] Last Admin: 04/12/22 21:54 Dose: 1 tab Diltiazem HCl (Diltiazem Hcl Cd 240 Mg Cap.Er.Deg) 240 mg PO DAILY [facility]; Protocol Donepezil HCl (Donepezil Hcl 10 Mg Tablet) 10 mg PO BEDTIME [facility] Last Admin: 04/12/22 21:54 Dose: 10 mg Duloxetine HCl (Duloxetine Hcl 60 Mg Capsule.Dr) 60 mg PO DAILY [facility] Enoxaparin Sodium (Enoxaparin Sodium 40 Mg/0.4 Ml Syringe) 40 mg SUBCUT Q24H [facility] Last Admin: 04/12/22 13:29 Dose: 40 mg Finasteride (Finasteride 5 Mg Tablet) 5 mg PO DAILY [facility] Lactated Ringer's (Lr) 1,000 mls @ 125 mls/hr IVCONT .Q8H [facility] Last Admin: 04/12/22 22:47 Dose: Not Given Doxycycline Hyclate 100 mg/ (Sodium Chloride) 250 mls @ 166.67 mls/hr IV Q12H [facility] Last Infusion: 04/12/22 19:08 Dose: Infused Levothyroxine Sodium (Levothyroxine Sodium 50 Mcg Tablet) 50 mcg PO DAILY@0600 [facility] Lidocaine (Lidocaine 4 % Patch Adh..Patch) 1 patch TRANSDERMA DAILY [facility] Lisinopril (Lisinopril 20 Mg Tablet) 20 mg PO DAILY [facility]; Protocol Memantine (Memantine Hcl 10 Mg Tablet) 10 mg PO BID [facility] Last Admin: 04/12/22 21:54 Dose: 10 mg Multivitamins/Vitamin C (Multivitamin Tablet) 1 tab PO DAILY [facility] Omeprazole (Omeprazole 20 Mg Capsule.Dr) 20 mg PO DAILY@0630 [facility] Ondansetron HCl (Ondansetron Hcl 4 Mg/2 Ml Vial) 4 mg IVPUSH Q8H PRN PRN Reason: Nausea and Vomiting Oxycodone HCl (Oxycodone Hcl Immed Release 5 Mg Tablet) 5 mg PO Q4H PRN PRN Reason: Pain, Severe (Pain Scale 7-10) Last Admin: 04/12/22 22:52 Dose: 5 mg Pharmacy Consult (Consult Rx Perform Med Rec) 1 each MISCELLANE ONCE PRN PRN Reason: Consult order Pregabalin (Pregabalin 150 Mg Capsule) 300 mg PO BID [facility] Last Admin: 04/12/22 21:53 Dose: 300 mg Ropinirole HCl (Ropinirole Hcl 2 Mg Tablet) 12 mg PO BEDTIME [facility] Last Admin: 04/12/22 21:53 Dose: 12 mg Ropinirole HCl (Ropinirole Hcl 2 Mg Tablet) 6 mg PO DAILY@1200 [facility] Sodium Chloride (0.9 % Sodium Chloride Flush 3 Ml Syringe) 3 ml IVFLUSH QSHIFT [facility] Last Admin: 04/12/22 20:25 Dose: 3 ml Tamsulosin HCl (Tamsulosin Hcl 0.4 Mg Capsule) 0.4 mg PO BID [facility] Last Admin: 04/12/22 21:54 Dose: 0.4 mg Tizanidine HCl (Tizanidine Hcl 4 Mg Tablet) 4 mg PO TID PRN PRN Reason: muscle spasticity Last Admin: 04/12/22 21:54 Dose: 4 mg Trazodone HCl (Trazodone Hcl 100 Mg Tablet) 300 mg PO BEDTIME PRN PRN Reason: insomnia Last Admin: 04/12/22 21:55 Dose: 300 mg Vitamin D (Cholecalciferol (Vitamin D3) 25 Mcg Tablet) 50 mcg PO DAILY [facility] Last Admin: 04/12/22 13:29 Dose: 50 mcg Home Medications Medication Instructions Recorded Confirmed Last Taken Type carbidopa 25 mg-levodopa 100 mg 1 tab PO QID 01/21/20 04/12/22 04/12/22 09:00 History tablet diclofenac sodium 1 % topical gel 2 g topical QID PRN Inflammation 01/21/20 04/12/22 Unknown History finasteride 5 mg tablet 5 mg PO DAILY 01/21/20 04/12/22 04/12/22 09:00 History levothyroxine 50 mcg tablet 50 mcg PO DAILY@0600 01/21/20 04/12/22 04/12/22 06:00 History lidocaine 5 % topical patch 1 patch topical DAILY 01/21/20 04/12/22 04/11/22 History multivitamin (Daily Multi-Vitamin 1 tab PO DAILY 01/21/20 04/12/22 04/12/22 09:00 History tablet) tamsulosin 0.4 mg capsule 0.4 mg PO BID 01/21/20 04/12/22 04/12/22 09:00 History ondansetron HCl 4 mg tablet 4 mg PO Q8H PRN Nausea 09/15/20 04/12/22 Unknown History pantoprazole 40 mg tablet,delayed 40 mg PO DAILY@0630 09/15/20 04/12/22 04/12/22 06:30 History release ropinirole 3 mg tablet 12 mg PO BEDTIME 10/21/20 04/12/22 04/11/22 History fluticasone propionate 50 1 spray intranasal BID 10/27/20 04/12/22 04/12/22 09:00 History mcg/actuation nasal spray,suspension donepezil 10 mg tablet 10 mg PO BEDTIME 10/07/21 04/12/22 04/11/22 History duloxetine 60 mg capsule,delayed 60 mg PO DAILY 10/07/21 04/12/22 04/12/22 09:00 History release memantine 10 mg tablet 10 mg PO BID 10/07/21 04/12/22 04/12/22 09:00 History pregabalin 300 mg capsule 300 mg PO BID 10/07/21 04/12/22 04/11/22 History amantadine HCl 100 mg tablet 1 tab PO TID 04/12/22 04/12/22 04/12/22 09:00 History buspirone 10 mg tablet 1 tab PO BID PRN Anxiety 04/12/22 04/12/22 04/12/22 09:00 History cholecalciferol (vitamin D3) 50 50 mcg PO DAILY 04/12/22 04/12/22 04/12/22 09:00 History mcg (2,000 unit) tablet (Vitamin D3) ferrous sulfate 325 mg (65 mg 325 mg PO DAILY 04/12/22 04/12/22 04/11/22 History iron) tablet,delayed release lisinopril 20 mg tablet 1 tab PO DAILY 04/12/22 04/12/22 04/12/22 09:00 History ropinirole 3 mg tablet 6 mg PO DAILY@1200 04/12/22 04/12/22 04/11/22 History trazodone 100 mg tablet 3 tab PO BEDTIME PRN insomnia 04/12/22 04/12/22 04/11/22 History Physical Exam Vital Signs: Vital Signs: Last Vital Signs Temp 99.0 F 04/12/22 19:44 Pulse 82 04/12/22 19:44 Resp 19 04/12/22 19:44 BP 120/63 04/12/22 19:44 Pulse Ox 96 04/12/22 19:44 O2 Del Method 04/12/22 19:44 O2 Flow Rate 4 04/12/22 19:44 Oxygen Flow Rate 3 04/12/22 16:05 BMI result Body Mass Index 31.3 Const: General: cooperative HEENT: Head: Yes normal to inspection Face and sinus: Yes normal facial exam Mouth: Normal oral and palatal mucosa present Teeth and gingiva: dentition normal Eyes: General: appearance normal, both eyes and all related structures Pupils: Equal, round and reactive pupils present Resp: Other: decreased breath sounds bases Cardio: Rate: regular rate Rhythm: regular rhythm GI: Palpation (GI): Soft to palpation and nontender : General: Yes no CVA tenderness Back/Spine/Pelvis: Back: no CVA tenderness Skin: General skin exam: no rashes or lesions noted Neuro: General: moves all extremities Cranial nerves: Yes Equal, round and reactive pupils present Extrem: General: Yes normal to inspection Psych: Appearance: grossly normal Results Labs CBC & Chem 7: 04/12/22 10:21 04/12/22 10:21 Labs: Short CBC 04/12/22 Range/Units 10:21 WBC 2.3 L (4.8-10.8) X10*3/uL Hgb 12.4 L (14.0-18.0) g/dl Hct 38.8 L D (42.0-52.0) % Plt Count 125 L D (160-400) X10*3/uL BMP 04/12/22 10:21 Sodium 142 Potassium 4.0 Chloride 102 Carbon Dioxide 31 H BUN 27 H Creatinine 0.96 Calcium 8.7 Cardiac Enzymes 04/12/22 Range/Units 10:21 Total Creatine Kinase 120 (38-174) U/L Liver Function 04/12/22 Range/Units 10:21 Total Bilirubin 1.6 H (0.0-1.0) mg/dL AST 26 (5-37) U/L ALT 18 (0-40) U/L Alkaline Phosphatase 209 H (39-117) U/L Albumin 3.4 L (3.5-5.0) g/dL Urine 04/12/22 Range/Units 10:52 Urine Color Dark Yellow Urine Appearance Clear Urine pH 6.0 (5.0-9.0) Ur Specific [place] 1.025 (1.005-1.025) Urine Protein 100 (2+) H (Neg-Trace) mg/dL Urine Glucose (UA) Negative (Negative) mg/dL Assessment and Plan (1) Fever of unknown origin (FUO): Status: Acute This is probably lung disease such as pneumonia There are possible gram positive and gram negative. (2) Pancytopenia: Status: Acute Plan Levaquin Doxycycline MRSA nares Time Spent With Patient Time: Total time managing care of this patient today ____ minutes.
[2022-04-13] VITALS (7 sets, daily range): BP systolic 117–154; BP diastolic 61–79; PULSE 74–102; RESP 12–20; TEMP 36.5–38.4; O2SAT 89–94
[2022-04-13] MEDS: Lactated Ringers 1,000 ML 125 ML IVCONT (01:26)
[2022-04-13] MEDS: Acetaminophen 325 MG TABLET 650 MG PO ×2 (01:29→20:58)
[2022-04-13] MEDS: oxyCODONE HCl Immed Release 5 MG TABLET PO ×5 (03:11→20:58)
[2022-04-13] MEDS: Levothyroxine Sodium 50 MCG TABLET PO (05:29)
[2022-04-13] MEDS: Doxycycline Hyclate 100 MG in 0.9 % Sodium Chloride 250 ML 166.67 MG IV ×2 (05:29→18:26)
[2022-04-13] MEDS: Omeprazole 20 MG CAPSULE.DR PO (05:29)
[2022-04-13] MEDS: Finasteride 5 MG TABLET PO (07:47)
[2022-04-13] MEDS: Pregabalin 150 MG CAPSULE 300 MG PO ×2 (07:47→20:58)
[2022-04-13] MEDS: Lidocaine 4 % Patch ADH..PATCH 1 PATCH TRANSDERMA (07:47)
[2022-04-13] MEDS: DULoxetine HCl 60 MG CAPSULE.DR PO (07:48)
[2022-04-13] MEDS: Memantine HCl 10 MG TABLET PO ×2 (07:48→20:58)
[2022-04-13] MEDS: Tamsulosin HCL 0.4 MG CAPSULE PO ×2 (07:48→20:58)
[2022-04-13] MEDS: Cholecalciferol (Vitamin D3) 25 MCG TABLET 50 MCG PO (07:48)
[2022-04-13] MEDS: Multivitamin TABLET 1 TAB PO (07:48)
[2022-04-13] MEDS: lisinopriL 20 MG TABLET PO (07:48)
[2022-04-13] MEDS: dilTIAZem HCL CD 240 MG CAP.ER.DEG PO (07:48)
[2022-04-13] MEDS: Carbidopa/Levodopa 25/100 TABLET 1 TAB PO ×4 (07:48→20:58)
--- NOTE | 2022-04-13 09:07 | MHC.CM.PN ---
CM met with Patient and his at bedside and addressed IMM with them, original was given to them and a copy has been placed on the chart. Patient lives in a house with his /HCP and he is transitioning from a cane to a walker. Patient required no services [employer] and home self care is the goal;, CM has initiated and will follow for dc planning. Patient has received Covid vax x4 and his PCP is Dr. Enrrique Bryan.
--- NOTE | 2022-04-13 11:14 | P.PNIM_ITS ---
Subjective Subjective Date of Service: 04/13/22 Interval History: Still short of breath but overall feels better. T-max trending downward Review of Systems Denies chest pain Admit shortness of breath which is worsening Denies nausea vomiting diarrhea Admits to fevers of 101 at home Physical Exam Vital Signs: Vital Signs: Last Vital Signs Temp 97.9 F 04/13/22 08:00 Pulse 83 04/13/22 08:00 Resp 12 04/13/22 08:00 BP 134/64 04/13/22 08:00 Pulse Ox 94 04/13/22 08:00 O2 Del Method 04/13/22 08:00 O2 Flow Rate 3 04/13/22 08:00 FiO2 95 04/12/22 23:33 Oxygen Flow Rate 3 04/12/22 16:05 BMI result Body Mass Index 31.3 Const: Other: Awake alert no acute distress lying comfortable in bed HEENT: Other: Throat clear; membranes moist Resp: Other: Diminished at bases with crackles left base Cardio: Other: No S4; positive S1-S2; no S3 murmurs rubs or gallops GI: Other: Soft nontender nondistended with normoactive bowel sounds Skin: Other: No rashes or lesions Extrem: Other: No edema bilaterally Objective Data Active Medications Acetaminophen (Acetaminophen 325 Mg Tablet) 650 mg PO Q6H PRN PRN Reason: Pain, Mild (Pain Scale 1-3) Last Admin: 04/13/22 01:29 Dose: 650 mg Documented By: WILDA Baclofen (Baclofen 20 Mg Tablet) 20 mg PO BID PRN PRN Reason: pain (scale score 4-6) Last Admin: 04/12/22 17:32 Dose: 20 mg Documented By: WENDI Buspirone HCl (Buspirone Hcl 10 Mg Tablet) 10 mg PO BID PRN PRN Reason: Anxiety Last Admin: 04/12/22 21:55 Dose: 10 mg Documented By: WILDA Carbidopa/Levodopa (Carbidopa/Levodopa 25/100 Tablet) 1 tab PO QID [facility] Last Admin: 04/13/22 07:48 Dose: 1 tab Documented By: PACO Diltiazem HCl (Diltiazem Hcl Cd 240 Mg Cap.Er.Deg) 240 mg PO DAILY [facility]; Protocol Last Admin: 04/13/22 07:48 Dose: 240 mg Documented By: PACO Donepezil HCl (Donepezil Hcl 10 Mg Tablet) 10 mg PO BEDTIME [facility] Last Admin: 04/12/22 21:54 Dose: 10 mg Documented By: WILDA Duloxetine HCl (Duloxetine Hcl 60 Mg Capsule.) 60 mg PO DAILY [facility] Last Admin: 04/13/22 07:48 Dose: 60 mg Documented By: PACO Enoxaparin Sodium (Enoxaparin Sodium 40 Mg/0.4 Ml Syringe) 40 mg SUBCUT Q24H [facility] Last Admin: 04/12/22 13:29 Dose: 40 mg Documented By: EMILY Finasteride (Finasteride 5 Mg Tablet) 5 mg PO DAILY [facility] Last Admin: 04/13/22 07:47 Dose: 5 mg Documented By: PACO Lactated Ringer's (Lr) 1,000 mls @ 125 mls/hr IVCONT .Q8H [facility] Last Admin: 04/13/22 01:26 Dose: 125 mls/hr Documented By: WILDA Doxycycline Hyclate 100 mg/ (Sodium Chloride) 250 mls @ 166.67 mls/hr IV Q12H [facility] Last Infusion: 04/13/22 07:09 Dose: 0 mls/hr Documented By: PACO Levothyroxine Sodium (Levothyroxine Sodium 50 Mcg Tablet) 50 mcg PO DAILY@0600 [facility] Last Admin: 04/13/22 05:29 Dose: 50 mcg Documented By: WILDA Lidocaine (Lidocaine 4 % Patch Adh..Patch) 1 patch TRANSDERMA DAILY [facility] Last Admin: 04/13/22 07:47 Dose: 1 patch Documented By: PACO Lisinopril (Lisinopril 20 Mg Tablet) 20 mg PO DAILY [facility]; Protocol Last Admin: 04/13/22 07:48 Dose: 20 mg Documented By: PACO Memantine (Memantine Hcl 10 Mg Tablet) 10 mg PO BID [facility] Last Admin: 04/13/22 07:48 Dose: 10 mg Documented By: PACO Multivitamins/Vitamin C (Multivitamin Tablet) 1 tab PO DAILY [facility] Last Admin: 04/13/22 07:48 Dose: 1 tab Documented By: PACO Omeprazole (Omeprazole 20 Mg Capsule.) 20 mg PO DAILY@0630 [facility] Last Admin: 04/13/22 05:29 Dose: 20 mg Documented By: WILDA Ondansetron HCl (Ondansetron Hcl 4 Mg/2 Ml Vial) 4 mg IVPUSH Q8H PRN PRN Reason: Nausea and Vomiting Oxycodone HCl (Oxycodone Hcl Immed Release 5 Mg Tablet) 5 mg PO Q4H PRN PRN Reason: Pain, Severe (Pain Scale 7-10) Last Admin: 04/13/22 07:41 Dose: 5 mg Documented By: PACO Pharmacy Consult (Consult Rx Perform Med Rec) 1 each MISCELLANE ONCE PRN PRN Reason: Consult order Pregabalin (Pregabalin 150 Mg Capsule) 300 mg PO BID [facility] Last Admin: 04/13/22 07:47 Dose: 300 mg Documented By: PACO Ropinirole HCl (Ropinirole Hcl 2 Mg Tablet) 12 mg PO BEDTIME [facility] Last Admin: 04/12/22 21:53 Dose: 12 mg Documented By: WILDA Ropinirole HCl (Ropinirole Hcl 2 Mg Tablet) 6 mg PO DAILY@1200 [facility] Sodium Chloride (0.9 % Sodium Chloride Flush 3 Ml Syringe) 3 ml IVFLUSH QSHIFT [facility] Last Admin: 04/13/22 07:53 Dose: Not Given Documented By: PACO Non-Admin Reason: IV Running Tamsulosin HCl (Tamsulosin Hcl 0.4 Mg Capsule) 0.4 mg PO BID [facility] Last Admin: 04/13/22 07:48 Dose: 0.4 mg Documented By: PACO Tizanidine HCl (Tizanidine Hcl 4 Mg Tablet) 4 mg PO TID PRN PRN Reason: muscle spasticity Last Admin: 04/12/22 21:54 Dose: 4 mg Documented By: WILDA Trazodone HCl (Trazodone Hcl 100 Mg Tablet) 300 mg PO BEDTIME PRN PRN Reason: insomnia Last Admin: 04/12/22 21:55 Dose: 300 mg Documented By: WILDA Vitamin D (Cholecalciferol (Vitamin D3) 25 Mcg Tablet) 50 mcg PO DAILY [facility] Last Admin: 04/13/22 07:48 Dose: 50 mcg Documented By: PACO Labs CBC & Chem 7: 04/12/22 10:21 04/12/22 10:21 Labs: Laboratory Results - last 24 hr 04/12/22 04/12/22 04/12/22 10:21 10:21 10:21 Smear Path Review SEE NOTE Lactic Acid Lactic Acid F/U @ 2Hr Magnesium 1.6 Lactate Dehydrogenase 235 Total Creatine Kinase 120 Procalcitonin Urine Color Urine Appearance Urine pH Ur Specific [place] Urine Protein Urine Glucose (UA) Urine Ketones Urine Blood Urine Nitrite Ur Leukocyte Esterase Urine RBC Urine WBC Ur Squamous Epith Cells Urine Bacteria Hyaline Casts Influenza Type A (PCR) NEGATIVE Influenza Type B (PCR) NEGATIVE RSV RNA Qual (PCR) NEGATIVE SARS-CoV-2 RNA (RT-PCR) NEGATIVE 04/12/22 04/12/22 04/12/22 10:21 10:52 11:25 Smear Path Review Lactic Acid 2.4 H* Lactic Acid F/U @ 2Hr Magnesium Lactate Dehydrogenase Total Creatine Kinase Procalcitonin 15.29 Urine Color Dark Yellow Urine Appearance Clear Urine pH 6.0 Ur Specific [place] 1.025 Urine Protein 100 (2+) H Urine Glucose (UA) Negative Urine Ketones Trace Urine Blood Negative Urine Nitrite Negative Ur Leukocyte Esterase Negative Urine RBC 0-2 Urine WBC 0-5 Ur Squamous Epith Cells 0-2 Urine Bacteria None Seen Hyaline Casts 0-2 Influenza Type A (PCR) Influenza Type B (PCR) RSV RNA Qual (PCR) SARS-CoV-2 RNA (RT-PCR) 04/12/22 13:41 Smear Path Review Lactic Acid Lactic Acid F/U @ 2Hr 1.2 Magnesium Lactate Dehydrogenase Total Creatine Kinase Procalcitonin Urine Color Urine Appearance Urine pH Ur Specific [place] Urine Protein Urine Glucose (UA) Urine Ketones Urine Blood Urine Nitrite Ur Leukocyte Esterase Urine RBC Urine WBC Ur Squamous Epith Cells Urine Bacteria Hyaline Casts Influenza Type A (PCR) Influenza Type B (PCR) RSV RNA Qual (PCR) SARS-CoV-2 RNA (RT-PCR) Assessment and Plan (1) Pneumonia: Status: Acute (2) Parkinsons: Status: Acute Plan 71-year-old male with history of Parkinson's disease presents with 3-5 days of worsening malaise and shortness of breath at with fevers to 101. In the emergency room found to be pancytopenic with a bandemia of 22%. X-ray read as negative 1. Pneumonia -Levaquin/doxycycline(2) -supplemental O2 to maintain sats greater than equal to 92% -ID consult appreciated -barrientos cultured await results 2. Hypertension -acceptable control on current therapies -adjust as indicated 3. Parkinson's -continue home therapies Full code Lovenox Will require 2 inpatient midnights going forward for investigation of fever of unknown origin and treat likely pneumonia. This cannot be done in a lesser acute setting Time Spent With Patient Time: Total time managing care of this patient today ____ minutes. Quality Stroke Does the patient have a stroke diagnosis?: No VTE Prior VTE?: No VTE Risk Level:: Medical - moderate - high VTE Device Contraindication: Treatment Not Indicated VTE Drug Contraindication: N/A - Med Ordered
[2022-04-13] MEDS: busPIRone HCl 10 MG TABLET PO (11:52)
[2022-04-13] MEDS: rOPINIRole HCL 2 MG TABLET 6 MG PO (11:53)
[2022-04-13] MEDS: Enoxaparin Sodium 40 MG/0.4 ML SYRINGE SUBCUT (14:12)
[2022-04-13] MEDS: Albuterol/Iprat 2.5/0.5MG 3 ML AMPUL.NEB INHALE (19:08)
[2022-04-13 19:44] LABS: Lactic Acid 1.8 mmol/L (0.5-2.0)
[2022-04-13] MEDS: Donepezil HCl 10 MG TABLET PO (20:58)
[2022-04-13] MEDS: rOPINIRole HCL 2 MG TABLET 12 MG PO (20:59)
[2022-04-14] MEDS: 0.9 % Sodium Chloride Flush 3 ML SYRINGE IVFLUSH ×3 (02:09→16:47)
[2022-04-14 04:00] VITALS: BP 144/65; PULSE 78; RESP 15; TEMP 36.6; O2SAT 94
[2022-04-14] MEDS: Doxycycline Hyclate 100 MG in 0.9 % Sodium Chloride 250 ML 166.67 MG IV ×2 (04:52→16:48)
[2022-04-14] MEDS: Acetaminophen 325 MG TABLET 650 MG PO ×2 (04:52→21:37)
[2022-04-14] MEDS: Omeprazole 20 MG CAPSULE.DR PO (04:52)
[2022-04-14] MEDS: Levothyroxine Sodium 50 MCG TABLET PO (04:52)
[2022-04-14] MEDS: oxyCODONE HCl Immed Release 5 MG TABLET PO ×4 (04:55→21:36)
[2022-04-14 06:10] LABS: MANUAL DIFF FLAG NO
[2022-04-14 06:35] LABS: Basophils Absolute Auto 0.1 X10*3/uL (0.0-0.2); Basophils Percent Auto 0.5 % (0-2); Eosinophils Absolute Auto 0.1 X10*3/uL (0.0-0.4); Eosinophils Percent Auto 0.4 % (0-4); Hematocrit 34.7 % (42.0-52.0); Hemoglobin 11.3 g/dl (14.0-18.0); Imm Gran Abs Auto 0.29 X10*3/uL (0.00-0.03); Imm Gran Pct Auto 1.8 % (0.0-0.4); Lymphocytes Absolute Auto 1.3 X10*3/uL (1.2-4.9); Lymphocytes Percent Auto 8.2 % (20-40); Mean Corpuscular HGB Conc 32.6 g/dl (31.0-36.0); Mean Corpuscular Hemoglobin 32.8 pg (27.0-33.0); Mean Corpuscular Volume 100.9 fL (80.0-98.0); Monocytes Absolute Auto 1.5 X10*3/uL (0.1-1.2); Monocytes Percent Auto 9.4 % (2-11); Neutrophils Absolute Auto 12.6 x10*3/uL (2.0-8.3); Neutrophils Percent Auto 79.7 % (45-73); Platelet Count 162 X10*3/uL (160-400); Red Blood Count 3.44 X10*6/uL (4.60-5.80); Red Cell Distribution Width 12.9 % (11.0-16.0); White Blood Count 15.8 X10*3/uL (4.8-10.8)
[2022-04-14 06:37] LABS: Alanine Aminotransferase 10 U/L (0-40); Albumin Level 2.9 g/dL (3.5-5.0); Alkaline Phosphatase 188 U/L (39-117); Anion Gap 11 (12-20); Aspartate Amino Transferase 26 U/L (5-37); Bilirubin Total 0.9 mg/dL (0.0-1.0); Blood Urea Nitrogen 17 mg/dL (9-16); Carbon Dioxide 29 mmol/L (22-29); Chloride 108 mmol/L (96-108); Estimated Glomerular Filt Rate > 60; Glucose Fasting 104 mg/dL (60-99); Potassium 3.6 mmol/L (3.3-5.1); Sodium 144 mmol/L (135-145); Total Protein 4.8 g/dL (6.5-8.0)
[2022-04-14 07:38] VITALS: BP 144/67; PULSE 77; RESP 20; TEMP 36.9; O2SAT 95
[2022-04-14] MEDS: Lidocaine 4 % Patch ADH..PATCH 1 PATCH TRANSDERMA (08:55)
[2022-04-14] MEDS: Multivitamin TABLET 1 TAB PO (08:57)
[2022-04-14] MEDS: Pregabalin 150 MG CAPSULE 300 MG PO ×2 (08:57→21:37)
[2022-04-14] MEDS: DULoxetine HCl 60 MG CAPSULE.DR PO (08:57)
[2022-04-14] MEDS: Memantine HCl 10 MG TABLET PO ×2 (08:57→21:37)
[2022-04-14] MEDS: dilTIAZem HCL CD 240 MG CAP.ER.DEG PO (08:57)
[2022-04-14] MEDS: lisinopriL 20 MG TABLET PO (08:58)
[2022-04-14] MEDS: Carbidopa/Levodopa 25/100 TABLET 1 TAB PO ×4 (08:58→21:37)
[2022-04-14] MEDS: Tamsulosin HCL 0.4 MG CAPSULE PO ×2 (08:58→21:37)
[2022-04-14] MEDS: Cholecalciferol (Vitamin D3) 25 MCG TABLET 50 MCG PO (08:58)
[2022-04-14] MEDS: Finasteride 5 MG TABLET PO (08:58)
[2022-04-14] MEDS: levoFLOXacin/D5W 750 MG/150 ML PIGGYBACK 100 MG IV (09:21)
[2022-04-14 11:26] VITALS: BP 144/69; PULSE 82; RESP 20; TEMP 37; O2SAT 95
[2022-04-14] MEDS: rOPINIRole HCL 2 MG TABLET 6 MG PO (12:03)
[2022-04-14] MEDS: ondansetron HCL 4 MG/2 ML VIAL IVPUSH (13:07)
[2022-04-14] MEDS: Enoxaparin Sodium 40 MG/0.4 ML SYRINGE SUBCUT (13:07)
--- NOTE | 2022-04-14 14:27 | HO.PM.IMPN ---
Subjective Subjective Date of Service: 04/14/22 Interval History: Breathing improved this a.m. T-max 101.1 degrees Review of Systems Denies chest pain Admit shortness of breath which is worsening Denies nausea vomiting diarrhea Admits to fevers of 101 at home Physical Exam Vital Signs: Vital Signs: Last Vital Signs Temp 98.6 F 04/14/22 11:26 Pulse 82 04/14/22 11:26 Resp 20 04/14/22 11:26 BP 144/69 H 04/14/22 11:26 Pulse Ox 95 04/14/22 11:26 O2 Del Method 04/14/22 11:26 O2 Flow Rate 4 04/14/22 11:26 FiO2 95 04/12/22 23:33 Oxygen Flow Rate 3 04/12/22 16:05 BMI result Body Mass Index 31.3 Const: Other: Awake alert no acute distress lying comfortable in bed HEENT: Other: Throat clear; membranes moist Resp: Other: Diminished at bases with crackles left base Cardio: Other: No S4; positive S1-S2; no S3 murmurs rubs or gallops GI: Other: Soft nontender nondistended with normoactive bowel sounds Skin: Other: No rashes or lesions Extrem: Other: No edema bilaterally Objective Data Active Medications Acetaminophen (Acetaminophen 325 Mg Tablet) 650 mg PO Q6H PRN PRN Reason: Pain, Mild (Pain Scale 1-3) Last Admin: 04/14/22 04:52 Dose: 650 mg Documented By: JASON Albuterol/Ipratropium (Albuterol/Iprat 2.5/0.5mg 3 Ml Ampul.Neb) 3 ml INHALE RQ4H PRN PRN Reason: Shortness of Breath Last Admin: 04/13/22 19:08 Dose: 3 ml Documented By: MONISHA Baclofen (Baclofen 20 Mg Tablet) 20 mg PO BID PRN PRN Reason: pain (scale score 4-6) Last Admin: 04/12/22 17:32 Dose: 20 mg Documented By: WENDI Buspirone HCl (Buspirone Hcl 10 Mg Tablet) 10 mg PO BID PRN PRN Reason: Anxiety Last Admin: 04/13/22 11:52 Dose: 10 mg Documented By: PACO Carbidopa/Levodopa (Carbidopa/Levodopa 25/100 Tablet) 1 tab PO QID [facility] Last Admin: 04/14/22 12:03 Dose: 1 tab Documented By: LUIS F Diltiazem HCl (Diltiazem Hcl Cd 240 Mg Cap.Er.Deg) 240 mg PO DAILY [facility]; Protocol Last Admin: 04/14/22 08:57 Dose: 240 mg Documented By: LUIS F Donepezil HCl (Donepezil Hcl 10 Mg Tablet) 10 mg PO BEDTIME [facility] Last Admin: 04/13/22 20:58 Dose: 10 mg Documented By: JASON Duloxetine HCl (Duloxetine Hcl 60 Mg Capsule.Dr) 60 mg PO DAILY [facility] Last Admin: 04/14/22 08:57 Dose: 60 mg Documented By: LUIS F Enoxaparin Sodium (Enoxaparin Sodium 40 Mg/0.4 Ml Syringe) 40 mg SUBCUT Q24H [facility] Last Admin: 04/14/22 13:07 Dose: 40 mg Documented By: LUIS F Finasteride (Finasteride 5 Mg Tablet) 5 mg PO DAILY [facility] Last Admin: 04/14/22 08:58 Dose: 5 mg Documented By: LUIS F Doxycycline Hyclate 100 mg/ (Sodium Chloride) 250 mls @ 166.67 mls/hr IV Q12H [facility] Last Infusion: 04/14/22 07:19 Dose: 166.67 mls/hr Documented By: LUIS F Levofloxacin (Levaquin) 750 mg in 150 mls @ 100 mls/hr IV Q24H [facility] Last Infusion: 04/14/22 11:25 Dose: 100 mls/hr Documented By: LUIS F Levothyroxine Sodium (Levothyroxine Sodium 50 Mcg Tablet) 50 mcg PO DAILY@0600 [facility] Last Admin: 04/14/22 04:52 Dose: 50 mcg Documented By: JASON Lidocaine (Lidocaine 4 % Patch Adh..Patch) 1 patch TRANSDERMA DAILY [facility] Last Admin: 04/14/22 08:55 Dose: 1 patch Documented By: LUIS F Lisinopril (Lisinopril 20 Mg Tablet) 20 mg PO DAILY [facility]; Protocol Last Admin: 04/14/22 08:58 Dose: 20 mg Documented By: LUIS F Memantine (Memantine Hcl 10 Mg Tablet) 10 mg PO BID [facility] Last Admin: 04/14/22 08:57 Dose: 10 mg Documented By: LUIS F Multivitamins/Vitamin C (Multivitamin Tablet) 1 tab PO DAILY [facility] Last Admin: 04/14/22 08:57 Dose: 1 tab Documented By: LUIS F Omeprazole (Omeprazole 20 Mg Capsule.Dr) 20 mg PO DAILY@0630 [facility] Last Admin: 04/14/22 04:52 Dose: 20 mg Documented By: JASON Ondansetron HCl (Ondansetron Hcl 4 Mg/2 Ml Vial) 4 mg IVPUSH Q8H PRN PRN Reason: Nausea and Vomiting Last Admin: 04/14/22 13:07 Dose: 4 mg Documented By: LUIS F Oxycodone HCl (Oxycodone Hcl Immed Release 5 Mg Tablet) 5 mg PO Q4H PRN PRN Reason: Pain, Severe (Pain Scale 7-10) Last Admin: 04/14/22 09:21 Dose: 5 mg Documented By: LUIS F Pharmacy Consult (Consult Rx Perform Med Rec) 1 each MISCELLANE ONCE PRN PRN Reason: Consult order Pregabalin (Pregabalin 150 Mg Capsule) 300 mg PO BID [facility] Last Admin: 04/14/22 08:57 Dose: 300 mg Documented By: LUIS F Ropinirole HCl (Ropinirole Hcl 2 Mg Tablet) 12 mg PO BEDTIME [facility] Last Admin: 04/13/22 20:59 Dose: 12 mg Documented By: JASON Ropinirole HCl (Ropinirole Hcl 2 Mg Tablet) 6 mg PO DAILY@1200 [facility] Last Admin: 04/14/22 12:03 Dose: 6 mg Documented By: LUIS F Sodium Chloride (0.9 % Sodium Chloride Flush 3 Ml Syringe) 3 ml IVFLUSH QSHIFT [facility] Last Admin: 04/14/22 08:59 Dose: 3 ml Documented By: LUIS F Tamsulosin HCl (Tamsulosin Hcl 0.4 Mg Capsule) 0.4 mg PO BID [facility] Last Admin: 04/14/22 08:58 Dose: 0.4 mg Documented By: LUIS F Tizanidine HCl (Tizanidine Hcl 4 Mg Tablet) 4 mg PO TID PRN PRN Reason: muscle spasticity Last Admin: 04/12/22 21:54 Dose: 4 mg Documented By: WILDA Trazodone HCl (Trazodone Hcl 100 Mg Tablet) 300 mg PO BEDTIME PRN PRN Reason: insomnia Last Admin: 04/12/22 21:55 Dose: 300 mg Documented By: WILDA Vitamin D (Cholecalciferol (Vitamin D3) 25 Mcg Tablet) 50 mcg PO DAILY [facility] Last Admin: 04/14/22 08:58 Dose: 50 mcg Documented By: LUIS F Labs CBC & Chem 7: 04/14/22 05:39 04/14/22 05:39 Labs: Laboratory Results - last 24 hr 04/13/22 04/14/22 04/14/22 19:13 05:39 05:39 MCV 100.9 H MCH 32.8 MCHC 32.6 RDW 12.9 Plt Count 162 D MPV 10.0 Immature Gran % (Auto) 1.8 H Neut % (Auto) 79.7 H Lymph % (Auto) 8.2 L Thomas % (Auto) 9.4 Eos % (Auto) 0.4 Baso % (Auto) 0.5 Lymph # (Auto) 1.3 Thomas # (Auto) 1.5 H Eos # (Auto) 0.1 Baso # (Auto) 0.1 Abs Immat Gran (auto) 0.29 H Absolute Neuts (auto) 12.6 H Absolute Nucleated RBC 0.000 Nucleated RBC % (auto) 0.0 Anion Gap 11 L Estim Creat Clear Calc 101.0 Estimated GFR > 60 Fasting Glucose 104 H Lactic Acid 1.8 Calcium 8.0 L D Total Bilirubin 0.9 AST 26 D ALT 10 Alkaline Phosphatase 188 H D Total Protein 4.8 L D Albumin 2.9 L D Microbiology Microbiology Results: Microbiology 04/12/22 11:25 Blood Culture - Preliminary Blood - Venous No growth after 48 hours. 04/12/22 11:25 Blood Culture - Preliminary Blood - Venous No growth after 24 hours. Assessment and Plan (1) Pneumonia: Status: Acute (2) HTN (hypertension): Status: Acute Plan 71-year-old male with history of Parkinson's disease presents with 3-5 days of worsening malaise and shortness of breath at with fevers to 101. In the emergency room found to be pancytopenic with a bandemia of 22%. X-ray read as negative 1. Pneumonia -Levaquin/doxycycline(3) -supplemental O2 to maintain sats greater than equal to 92% -ID consult appreciated -barrientos cultured await results 2. Hypertension -acceptable control on current therapies -adjust as indicated 3. Parkinson's -continue home therapies Full code Lovenox Will require 2 inpatient midnights going forward for investigation of fever of unknown origin and treat likely pneumonia. This cannot be done in a lesser acute setting Time Spent With Patient Time: Total time managing care of this patient today ____ minutes. Quality Stroke Does the patient have a stroke diagnosis?: No VTE Prior VTE?: No VTE Risk Level:: Medical - moderate - high VTE Device Contraindication: Treatment Not Indicated VTE Drug Contraindication: N/A - Med Ordered
--- NOTE | 2022-04-14 15:22 | MHC.CM.PN ---
pt not expected to dc over the weekend
[2022-04-14 16:00] VITALS: BP 136/63; PULSE 83; RESP 18; TEMP 37.5; O2SAT 92
[2022-04-14 20:00] VITALS: BP 148/76; PULSE 85; RESP 18; TEMP 36.4; O2SAT 94
[2022-04-14] MEDS: Donepezil HCl 10 MG TABLET PO (21:37)
[2022-04-14] MEDS: rOPINIRole HCL 2 MG TABLET 12 MG PO (21:38)
[2022-04-14] MEDS: traZODone HCL 100 MG TABLET 300 MG PO (21:46)
[2022-04-14 23:51] VITALS: BP 144/68; PULSE 86; RESP 18; TEMP 36.6; O2SAT 92
[2022-04-15] MEDS: 0.9 % Sodium Chloride Flush 3 ML SYRINGE IVFLUSH ×3 (01:03→20:17)
[2022-04-15 03:58] VITALS: BP 151/70; PULSE 85; RESP 18; TEMP 36.6; O2SAT 93
[2022-04-15] MEDS: Omeprazole 20 MG CAPSULE.DR PO (05:09)
[2022-04-15] MEDS: oxyCODONE HCl Immed Release 5 MG TABLET PO ×4 (05:10→20:22)
[2022-04-15] MEDS: Levothyroxine Sodium 50 MCG TABLET PO (05:10)
[2022-04-15] MEDS: Doxycycline Hyclate 100 MG in 0.9 % Sodium Chloride 250 ML 166.67 MG IV (05:10)
[2022-04-15 06:37] LABS: Basophils Absolute Auto 0.1 X10*3/uL (0.0-0.2); Basophils Percent Auto 0.7 % (0-2); Eosinophils Absolute Auto 0.1 X10*3/uL (0.0-0.4); Eosinophils Percent Auto 0.8 % (0-4); Hematocrit 36.9 % (42.0-52.0); Hemoglobin 11.8 g/dl (14.0-18.0); Imm Gran Abs Auto 0.32 X10*3/uL (0.00-0.03); Lymphocytes Percent Auto 6.1 % (20-40); MANUAL DIFF FLAG SCAN; Mean Corpuscular Hemoglobin 32.7 pg (27.0-33.0); Mean Corpuscular Volume 102.2 fL (80.0-98.0); Mean Platelet Volume 9.8 fL (9.4-12.4); Monocytes Absolute Auto 1.5 X10*3/uL (0.1-1.2); Monocytes Percent Auto 9.7 % (2-11); Neutrophils Absolute Auto 12.8 x10*3/uL (2.0-8.3); Neutrophils Percent Auto 80.7 % (45-73); Platelet Count 198 X10*3/uL (160-400); Red Blood Count 3.61 X10*6/uL (4.60-5.80); Red Cell Distribution Width 12.9 % (11.0-16.0); SCAN SMEAR FLAG 1; White Blood Count 15.8 X10*3/uL (4.8-10.8)
[2022-04-15 06:56] LABS: Alanine Aminotransferase 10 U/L (0-40); Albumin Level 2.7 g/dL (3.5-5.0); Alkaline Phosphatase 206 U/L (39-117); Anion Gap 12 (12-20); Aspartate Amino Transferase 23 U/L (5-37); Bilirubin Total 0.8 mg/dL (0.0-1.0); Blood Urea Nitrogen 13 mg/dL (9-16); Calcium 8.1 mg/dL (8.4-10.2); Carbon Dioxide 30 mmol/L (22-29); Chloride 106 mmol/L (96-108); Estimated Glomerular Filt Rate > 60; Glucose Fasting 97 mg/dL (60-99); Potassium 3.7 mmol/L (3.3-5.1); Sodium 144 mmol/L (135-145); Total Protein 4.8 g/dL (6.5-8.0)
[2022-04-15 07:13] LABS: SLIDE REVIEW VERIFIED
[2022-04-15 07:54] VITALS: BP 151/72; PULSE 83; RESP 20; TEMP 36.9; O2SAT 94
[2022-04-15] MEDS: Tamsulosin HCL 0.4 MG CAPSULE PO ×2 (10:15→20:17)
[2022-04-15] MEDS: DULoxetine HCl 60 MG CAPSULE.DR PO (10:15)
[2022-04-15] MEDS: Multivitamin TABLET 1 TAB PO (10:15)
[2022-04-15] MEDS: dilTIAZem HCL CD 240 MG CAP.ER.DEG PO (10:15)
[2022-04-15] MEDS: Carbidopa/Levodopa 25/100 TABLET 1 TAB PO ×4 (10:16→20:17)
[2022-04-15] MEDS: Pregabalin 150 MG CAPSULE 300 MG PO ×2 (10:16→20:17)
[2022-04-15] MEDS: lisinopriL 20 MG TABLET PO (10:16)
[2022-04-15] MEDS: Lidocaine 4 % Patch ADH..PATCH 1 PATCH TRANSDERMA (10:17)
[2022-04-15] MEDS: rOPINIRole HCL 2 MG TABLET 6 MG PO (10:17)
[2022-04-15] MEDS: Cholecalciferol (Vitamin D3) 25 MCG TABLET 50 MCG PO (10:17)
[2022-04-15] MEDS: Finasteride 5 MG TABLET PO (10:17)
[2022-04-15] MEDS: Memantine HCl 10 MG TABLET PO ×2 (10:17→20:17)
[2022-04-15 11:38] VITALS: BP 143/70; PULSE 84; RESP 20; TEMP 36.9; O2SAT 95
[2022-04-15] MEDS: Enoxaparin Sodium 40 MG/0.4 ML SYRINGE SUBCUT (14:16)
[2022-04-15 15:00] VITALS: BP 166/72; PULSE 82; RESP 18; TEMP 36.8; O2SAT 96
--- NOTE | 2022-04-15 15:23 | P.PNIM_ITS ---
Subjective Subjective Date of Service: 04/15/22 Interval History: Work in early improved from a respiratory standpoint Review of Systems Denies chest pain Admit shortness of breath which is worsening Denies nausea vomiting diarrhea Admits to fevers of 101 at home Physical Exam Vital Signs: Vital Signs: Last Vital Signs Temp 98.2 F 04/15/22 15:00 Pulse 82 04/15/22 15:00 Resp 18 04/15/22 15:00 BP 166/72 H 04/15/22 15:00 Pulse Ox 96 04/15/22 15:00 O2 Del Method 04/15/22 15:00 O2 Flow Rate 4 04/15/22 15:00 FiO2 95 04/12/22 23:33 Oxygen Flow Rate 3 04/12/22 16:05 BMI result Body Mass Index 31.3 Const: Other: Awake alert no acute distress lying comfortable in bed HEENT: Other: Throat clear; membranes moist Resp: Other: Diminished at bases with crackles left base Cardio: Other: No S4; positive S1-S2; no S3 murmurs rubs or gallops GI: Other: Soft nontender nondistended with normoactive bowel sounds Skin: Other: No rashes or lesions Extrem: Other: No edema bilaterally Objective Data Active Medications Acetaminophen (Acetaminophen 325 Mg Tablet) 650 mg PO Q6H PRN PRN Reason: Pain, Mild (Pain Scale 1-3) Last Admin: 04/14/22 21:37 Dose: 650 mg Documented By: JASON Albuterol/Ipratropium (Albuterol/Iprat 2.5/0.5mg 3 Ml Ampul.Neb) 3 ml INHALE RQ4H PRN PRN Reason: Shortness of Breath Last Admin: 04/13/22 19:08 Dose: 3 ml Documented By: MONISHA Baclofen (Baclofen 20 Mg Tablet) 20 mg PO BID PRN PRN Reason: pain (scale score 4-6) Last Admin: 04/12/22 17:32 Dose: 20 mg Documented By: WENDI Buspirone HCl (Buspirone Hcl 10 Mg Tablet) 10 mg PO BID PRN PRN Reason: Anxiety Last Admin: 04/13/22 11:52 Dose: 10 mg Documented By: PACO Carbidopa/Levodopa (Carbidopa/Levodopa 25/100 Tablet) 1 tab PO QID [facility] Last Admin: 04/15/22 14:16 Dose: 1 tab Documented By: DENISHA Diltiazem HCl (Diltiazem Hcl Cd 240 Mg Cap.Er.Deg) 240 mg PO DAILY [facility]; Protocol Last Admin: 04/15/22 10:15 Dose: 240 mg Documented By: DENISHA Donepezil HCl (Donepezil Hcl 10 Mg Tablet) 10 mg PO BEDTIME [facility] Last Admin: 04/14/22 21:37 Dose: 10 mg Documented By: JASON Duloxetine HCl (Duloxetine Hcl 60 Mg Capsule.Dr) 60 mg PO DAILY [facility] Last Admin: 04/15/22 10:15 Dose: 60 mg Documented By: DENISHA Enoxaparin Sodium (Enoxaparin Sodium 40 Mg/0.4 Ml Syringe) 40 mg SUBCUT Q24H [facility] Last Admin: 04/15/22 14:16 Dose: 40 mg Documented By: DENISHA Finasteride (Finasteride 5 Mg Tablet) 5 mg PO DAILY [facility] Last Admin: 04/15/22 10:17 Dose: 5 mg Documented By: DENISHA Levofloxacin (Levaquin) 750 mg in 150 mls @ 100 mls/hr IV Q24H [facility] Last Admin: 04/15/22 14:15 Dose: Not Given Documented By: DENISHA Non-Admin Reason: No Access Doxycycline Hyclate 100 mg/ (Sodium Chloride) 250 mls @ 166.67 mls/hr IV Q12H [facility] Last Admin: 04/15/22 14:15 Dose: Not Given Documented By: DENISHA Non-Admin Reason: No Access Levothyroxine Sodium (Levothyroxine Sodium 50 Mcg Tablet) 50 mcg PO DAILY@0600 [facility] Last Admin: 04/15/22 05:10 Dose: 50 mcg Documented By: JASON Lidocaine (Lidocaine 4 % Patch Adh..Patch) 1 patch TRANSDERMA DAILY [facility] Last Admin: 04/15/22 10:17 Dose: 1 patch Documented By: DENISHA Lisinopril (Lisinopril 20 Mg Tablet) 20 mg PO DAILY [facility]; Protocol Last Admin: 04/15/22 10:16 Dose: 20 mg Documented By: DENISHA Memantine (Memantine Hcl 10 Mg Tablet) 10 mg PO BID [facility] Last Admin: 04/15/22 10:17 Dose: 10 mg Documented By: DEINSHA Multivitamins/Vitamin C (Multivitamin Tablet) 1 tab PO DAILY [facility] Last Admin: 04/15/22 10:15 Dose: 1 tab Documented By: DENISHA Omeprazole (Omeprazole 20 Mg Capsule.Dr) 20 mg PO DAILY@0630 [facility] Last Admin: 04/15/22 05:09 Dose: 20 mg Documented By: JASON Ondansetron HCl (Ondansetron Hcl 4 Mg/2 Ml Vial) 4 mg IVPUSH Q8H PRN PRN Reason: Nausea and Vomiting Last Admin: 04/14/22 13:07 Dose: 4 mg Documented By: LUIS F Oxycodone HCl (Oxycodone Hcl Immed Release 5 Mg Tablet) 5 mg PO Q4H PRN PRN Reason: Pain, Severe (Pain Scale 7-10) Last Admin: 04/15/22 14:18 Dose: 5 mg Documented By: DENISHA Pharmacy Consult (Consult Rx Perform Med Rec) 1 each MISCELLANE ONCE PRN PRN Reason: Consult order Pregabalin (Pregabalin 150 Mg Capsule) 300 mg PO BID [facility] Last Admin: 04/15/22 10:16 Dose: 300 mg Documented By: DENISHA Ropinirole HCl (Ropinirole Hcl 2 Mg Tablet) 12 mg PO BEDTIME [facility] Last Admin: 04/14/22 21:38 Dose: 12 mg Documented By: JASON Ropinirole HCl (Ropinirole Hcl 2 Mg Tablet) 6 mg PO DAILY@1200 [facility] Last Admin: 04/15/22 10:17 Dose: 6 mg Documented By: DENISHA Sodium Chloride (0.9 % Sodium Chloride Flush 3 Ml Syringe) 3 ml IVFLUSH QSHIFT [facility] Last Admin: 04/15/22 14:20 Dose: Not Given Documented By: DENISHA Non-Admin Reason: No Access Tamsulosin HCl (Tamsulosin Hcl 0.4 Mg Capsule) 0.4 mg PO BID [facility] Last Admin: 04/15/22 10:15 Dose: 0.4 mg Documented By: DENISHA Tizanidine HCl (Tizanidine Hcl 4 Mg Tablet) 4 mg PO TID PRN PRN Reason: muscle spasticity Last Admin: 04/12/22 21:54 Dose: 4 mg Documented By: WILDA Trazodone HCl (Trazodone Hcl 100 Mg Tablet) 300 mg PO BEDTIME PRN PRN Reason: insomnia Last Admin: 04/14/22 21:46 Dose: 300 mg Documented By: JESSICAJ Vitamin D (Cholecalciferol (Vitamin D3) 25 Mcg Tablet) 50 mcg PO DAILY [facility] Last Admin: 04/15/22 10:17 Dose: 50 mcg Documented By: DENISHA Labs CBC & Chem 7: 04/15/22 05:58 04/15/22 05:58 Labs: Laboratory Results - last 24 hr 04/15/22 04/15/22 05:58 05:58 MCV 102.2 H MCH 32.7 MCHC 32.0 RDW 12.9 Plt Count 198 MPV 9.8 Immature Gran % (Auto) 2.0 H Neut % (Auto) 80.7 H Lymph % (Auto) 6.1 L [place] % (Auto) 9.7 Eos % (Auto) 0.8 Baso % (Auto) 0.7 Lymph # (Auto) 1.0 L [place] # (Auto) 1.5 H Eos # (Auto) 0.1 Baso # (Auto) 0.1 Abs Immat Gran (auto) 0.32 H Absolute Neuts (auto) 12.8 H Absolute Nucleated RBC 0.000 Nucleated RBC % (auto) 0.0 Smear Tech's Comments VERIFIED Anion Gap 12 Estim Creat Clear Calc 112.0 Estimated GFR > 60 Fasting Glucose 97 Calcium 8.1 L Total Bilirubin 0.8 AST 23 ALT 10 Alkaline Phosphatase 206 H Total Protein 4.8 L Albumin 2.7 L Microbiology Microbiology Results: Microbiology 04/12/22 11:25 Blood Culture - Preliminary Blood - Venous No growth after 48 hours. 04/12/22 11:25 Blood Culture - Preliminary Blood - Venous No growth after 48 hours. 04/13/22 19:14 Blood Culture - Preliminary Blood - Venous No growth after 24 hours. 04/13/22 19:14 Blood Culture - Preliminary Blood - Venous No growth after 24 hours. Assessment and Plan (1) Pneumonia: Status: Acute (2) HTN (hypertension): Status: Acute (3) Parkinsons: Status: Acute Plan 71-year-old male with history of Parkinson's disease presents with 3-5 days of worsening malaise and shortness of breath at with fevers to 101. In the emergency room found to be pancytopenic with a bandemia of 22%. X-ray read as negative 1. Pneumonia -Levaquin/doxycycline(4) -supplemental O2 to maintain sats greater than equal to 92% -no IV access; patient refusing central line -switch therapies to p.o. 2. Hypertension -acceptable control on current therapies -adjust as indicated 3. Parkinson's -continue home therapies Full code Lovenox Time Spent With Patient Time: Total time managing care of this patient today ____ minutes. Quality Stroke Does the patient have a stroke diagnosis?: No VTE Prior VTE?: No VTE Risk Level:: Medical - moderate - high VTE Device Contraindication: Treatment Not Indicated VTE Drug Contraindication: N/A - Med Ordered
[2022-04-15] MEDS: levoFLOXacin 750 MG TABLET PO (17:05)
[2022-04-15 18:51] VITALS: BP 155/72; PULSE 86; RESP 18; TEMP 36.6; O2SAT 93
[2022-04-15] MEDS: rOPINIRole HCL 2 MG TABLET 12 MG PO (20:16)
[2022-04-15] MEDS: Doxycycline Monohydrate 100 MG CAPSULE PO (20:17)
[2022-04-15] MEDS: Acetaminophen 325 MG TABLET 650 MG PO (20:17)
[2022-04-15] MEDS: Donepezil HCl 10 MG TABLET PO (20:17)
[2022-04-15] MEDS: traZODone HCL 100 MG TABLET 300 MG PO (21:20)
[2022-04-16] VITALS: BP 139/76; PULSE 98; RESP 18; TEMP 37.2; O2SAT 92
[2022-04-16] MEDS: oxyCODONE HCl Immed Release 5 MG TABLET PO ×6 (00:09→21:57)
[2022-04-16] MEDS: Acetaminophen 325 MG TABLET 650 MG PO (02:41)
[2022-04-16] MEDS: TiZANidine HCL 4 MG TABLET PO (02:41)
[2022-04-16 03:54] VITALS: BP 137/71; PULSE 80; RESP 20; TEMP 36.6; O2SAT 92
[2022-04-16] MEDS: Omeprazole 20 MG CAPSULE.DR PO (05:47)
[2022-04-16] MEDS: Levothyroxine Sodium 50 MCG TABLET PO (05:47)
[2022-04-16 06:32] LABS: MANUAL DIFF FLAG NO
[2022-04-16 06:37] LABS: Basophils Absolute Auto 0.1 X10*3/uL (0.0-0.2); Basophils Percent Auto 0.7 % (0-2); Eosinophils Absolute Auto 0.3 X10*3/uL (0.0-0.4); Eosinophils Percent Auto 2.7 % (0-4); Hematocrit 34.9 % (42.0-52.0); Hemoglobin 11.4 g/dl (14.0-18.0); Imm Gran Abs Auto 0.23 X10*3/uL (0.00-0.03); Lymphocytes Absolute Auto 1.3 X10*3/uL (1.2-4.9); Lymphocytes Percent Auto 11.3 % (20-40); Mean Corpuscular HGB Conc 32.7 g/dl (31.0-36.0); Mean Corpuscular Hemoglobin 32.5 pg (27.0-33.0); Mean Corpuscular Volume 99.4 fL (80.0-98.0); Mean Platelet Volume 9.4 fL (9.4-12.4); Monocytes Absolute Auto 1.3 X10*3/uL (0.1-1.2); Monocytes Percent Auto 11.2 % (2-11); Neutrophils Absolute Auto 8.3 x10*3/uL (2.0-8.3); Neutrophils Percent Auto 72.1 % (45-73); Platelet Count 223 X10*3/uL (160-400); Red Blood Count 3.51 X10*6/uL (4.60-5.80); Red Cell Distribution Width 12.9 % (11.0-16.0); White Blood Count 11.5 X10*3/uL (4.8-10.8)
[2022-04-16 06:59] LABS: Alanine Aminotransferase 13 U/L (0-40); Albumin Level 2.6 g/dL (3.5-5.0); Alkaline Phosphatase 181 U/L (39-117); Anion Gap 11 (12-20); Aspartate Amino Transferase 19 U/L (5-37); Bilirubin Total 0.7 mg/dL (0.0-1.0); Blood Urea Nitrogen 13 mg/dL (9-16); Carbon Dioxide 31 mmol/L (22-29); Chloride 105 mmol/L (96-108); Creatinine Clr Calc Pharmacy 113.8; Estimated Glomerular Filt Rate > 60; Glucose Fasting 90 mg/dL (60-99); Potassium 3.6 mmol/L (3.3-5.1); Sodium 143 mmol/L (135-145); Total Protein 4.6 g/dL (6.5-8.0)
[2022-04-16 07:24] VITALS: BP 156/74; PULSE 82; RESP 20; TEMP 36.9; O2SAT 92
[2022-04-16 09:22] LABS: Procalcitonin 6.91 ng/mL
[2022-04-16] MEDS: Carbidopa/Levodopa 25/100 TABLET 1 TAB PO ×4 (09:32→19:16)
[2022-04-16] MEDS: Pregabalin 150 MG CAPSULE 300 MG PO ×2 (09:32→19:16)
[2022-04-16] MEDS: Finasteride 5 MG TABLET PO (09:32)
[2022-04-16] MEDS: DULoxetine HCl 60 MG CAPSULE.DR PO (09:32)
[2022-04-16] MEDS: dilTIAZem HCL CD 240 MG CAP.ER.DEG PO (09:32)
[2022-04-16] MEDS: lisinopriL 20 MG TABLET PO (09:32)
[2022-04-16] MEDS: Multivitamin TABLET 1 TAB PO (09:32)
[2022-04-16] MEDS: Cholecalciferol (Vitamin D3) 25 MCG TABLET 50 MCG PO (09:32)
[2022-04-16] MEDS: Doxycycline Monohydrate 100 MG CAPSULE PO ×2 (09:33→19:16)
[2022-04-16] MEDS: Memantine HCl 10 MG TABLET PO ×2 (09:33→19:16)
[2022-04-16] MEDS: Tamsulosin HCL 0.4 MG CAPSULE PO ×2 (09:33→19:16)
[2022-04-16] MEDS: Lidocaine 4 % Patch ADH..PATCH 1 PATCH TRANSDERMA (09:34)
[2022-04-16 09:37] LABS: Folate 14.3 ng/mL (> or = 4.0); Vitamin B12 1896 pg/mL (200-900)
[2022-04-16 11:29] VITALS: BP 140/67; PULSE 88; RESP 20; TEMP 37.1; O2SAT 93
[2022-04-16] MEDS: rOPINIRole HCL 2 MG TABLET 6 MG PO (12:15)
[2022-04-16] MEDS: Enoxaparin Sodium 40 MG/0.4 ML SYRINGE SUBCUT (12:15)
--- NOTE | 2022-04-16 13:27 | P.PNIM_ITS ---
Subjective Subjective Date of Service: 04/16/22 Interval History: O2 req down to 1L; cough + dyspnea improved BCx growing GNRs Review of Systems Review of Systems: Yes all other systems are reviewed and are negative Physical Exam Vital Signs: Vital Signs: Last Vital Signs Temp 98.7 F 04/16/22 11:29 Pulse 88 04/16/22 11:29 Resp 20 04/16/22 11:29 BP 140/67 H 04/16/22 11:29 Pulse Ox 93 04/16/22 11:29 O2 Del Method 04/16/22 11:29 O2 Flow Rate 1 04/16/22 11:29 FiO2 95 04/12/22 23:33 Oxygen Flow Rate 3 04/12/22 16:05 BMI result Body Mass Index 31.3 Gen: in no acute distress HEENT: sclera anicteric, moist mucus membranes Neck: supple Lungs: insp crackles L base Heart: regular rate and rhythm, no murmurs Abd: soft, non-tender, non-distended Ext: no edema Skin: warm/well-perfused Neuro: alert and oriented x3, no focal findings Psych: appropriate affect Objective Data Active Medications Acetaminophen (Acetaminophen 325 Mg Tablet) 650 mg PO Q6H PRN PRN Reason: Pain, Mild (Pain Scale 1-3) Last Admin: 04/16/22 02:41 Dose: 650 mg Documented By: GAGE Albuterol/Ipratropium (Albuterol/Iprat 2.5/0.5mg 3 Ml Ampul.Neb) 3 ml INHALE RQ4H PRN PRN Reason: Shortness of Breath Last Admin: 04/13/22 19:08 Dose: 3 ml Documented By: MONISHA Baclofen (Baclofen 20 Mg Tablet) 20 mg PO BID PRN PRN Reason: pain (scale score 4-6) Last Admin: 04/12/22 17:32 Dose: 20 mg Documented By: WENDI Buspirone HCl (Buspirone Hcl 10 Mg Tablet) 10 mg PO BID PRN PRN Reason: Anxiety Last Admin: 04/13/22 11:52 Dose: 10 mg Documented By: PACO Carbidopa/Levodopa (Carbidopa/Levodopa 25/100 Tablet) 1 tab PO QID [facility] Last Admin: 04/16/22 12:14 Dose: 1 tab Documented By: DENISHA Diltiazem HCl (Diltiazem Hcl Cd 240 Mg Cap.Er.Deg) 240 mg PO DAILY [facility]; Protocol Last Admin: 04/16/22 09:32 Dose: 240 mg Documented By: DENISHA Donepezil HCl (Donepezil Hcl 10 Mg Tablet) 10 mg PO BEDTIME [facility] Last Admin: 04/15/22 20:17 Dose: 10 mg Documented By: GAGE Doxycycline Monohydrate (Doxycycline Monohydrate 100 Mg Capsule) 100 mg PO Q12H [facility] Last Admin: 04/16/22 09:33 Dose: 100 mg Documented By: DENISHA Duloxetine HCl (Duloxetine Hcl 60 Mg Capsule.Dr) 60 mg PO DAILY [facility] Last Admin: 04/16/22 09:32 Dose: 60 mg Documented By: DENISHA Enoxaparin Sodium (Enoxaparin Sodium 40 Mg/0.4 Ml Syringe) 40 mg SUBCUT Q24H [facility] Last Admin: 04/16/22 12:15 Dose: 40 mg Documented By: DENISHA Finasteride (Finasteride 5 Mg Tablet) 5 mg PO DAILY [facility] Last Admin: 04/16/22 09:32 Dose: 5 mg Documented By: DENISHA Levofloxacin (Levofloxacin 750 Mg Tablet) 750 mg PO Q24H [facility] Last Admin: 04/15/22 17:05 Dose: 750 mg Documented By: DENISHA Levothyroxine Sodium (Levothyroxine Sodium 50 Mcg Tablet) 50 mcg PO DAILY@0600 [facility] Last Admin: 04/16/22 05:47 Dose: 50 mcg Documented By: GAGE Lidocaine (Lidocaine 4 % Patch Adh..Patch) 1 patch TRANSDERMA DAILY [facility] Last Admin: 04/16/22 09:34 Dose: 1 patch Documented By: DENISHA Lisinopril (Lisinopril 20 Mg Tablet) 20 mg PO DAILY [facility]; Protocol Last Admin: 04/16/22 09:32 Dose: 20 mg Documented By: DENISHA Memantine (Memantine Hcl 10 Mg Tablet) 10 mg PO BID [facility] Last Admin: 04/16/22 09:33 Dose: 10 mg Documented By: DENISHA Multivitamins/Vitamin C (Multivitamin Tablet) 1 tab PO DAILY [facility] Last Admin: 04/16/22 09:32 Dose: 1 tab Documented By: DENISHA Omeprazole (Omeprazole 20 Mg Capsule.Dr) 20 mg PO DAILY@0630 [facility] Last Admin: 04/16/22 05:47 Dose: 20 mg Documented By: GAGE Ondansetron HCl (Ondansetron Hcl 4 Mg/2 Ml Vial) 4 mg IVPUSH Q8H PRN PRN Reason: Nausea and Vomiting Last Admin: 04/14/22 13:07 Dose: 4 mg Documented By: LUIS F Oxycodone HCl (Oxycodone Hcl Immed Release 5 Mg Tablet) 5 mg PO Q4H PRN PRN Reason: Pain, Severe (Pain Scale 7-10) Last Admin: 04/16/22 09:43 Dose: 5 mg Documented By: DENISHA Pharmacy Consult (Consult Rx Perform Med Rec) 1 each MISCELLANE ONCE PRN PRN Reason: Consult order Pregabalin (Pregabalin 150 Mg Capsule) 300 mg PO BID [facility] Last Admin: 04/16/22 09:32 Dose: 300 mg Documented By: DENISHA Ropinirole HCl (Ropinirole Hcl 2 Mg Tablet) 12 mg PO BEDTIME [facility] Last Admin: 04/15/22 20:16 Dose: 12 mg Documented By: GAGE Ropinirole HCl (Ropinirole Hcl 2 Mg Tablet) 6 mg PO DAILY@1200 [facility] Last Admin: 04/16/22 12:15 Dose: 6 mg Documented By: DENISHA Sodium Chloride (0.9 % Sodium Chloride Flush 3 Ml Syringe) 3 ml IVFLUSH QSHIFT [facility] Last Admin: 04/16/22 09:33 Dose: Not Given Documented By: DENISHA Non-Admin Reason: No Access Tamsulosin HCl (Tamsulosin Hcl 0.4 Mg Capsule) 0.4 mg PO BID [facility] Last Admin: 04/16/22 09:33 Dose: 0.4 mg Documented By: DENISHA Tizanidine HCl (Tizanidine Hcl 4 Mg Tablet) 4 mg PO TID PRN PRN Reason: muscle spasticity Last Admin: 04/16/22 02:41 Dose: 4 mg Documented By: GAGE Trazodone HCl (Trazodone Hcl 100 Mg Tablet) 300 mg PO BEDTIME PRN PRN Reason: insomnia Last Admin: 04/15/22 21:20 Dose: 300 mg Documented By: GAGE Vitamin D (Cholecalciferol (Vitamin D3) 25 Mcg Tablet) 50 mcg PO DAILY [facility] Last Admin: 04/16/22 09:32 Dose: 50 mcg Documented By: DENISHA Labs CBC & Chem 7: 04/16/22 06:07 04/16/22 06:07 Labs: Laboratory Results - last 24 hr 04/16/22 04/16/22 04/16/22 06:07 06:07 06:07 MCV 99.4 H MCH 32.5 MCHC 32.7 RDW 12.9 Plt Count 223 MPV 9.4 Immature Gran % (Auto) 2.0 H Neut % (Auto) 72.1 Lymph % (Auto) 11.3 L [place] % (Auto) 11.2 H Eos % (Auto) 2.7 Baso % (Auto) 0.7 Lymph # (Auto) 1.3 [place] # (Auto) 1.3 H Eos # (Auto) 0.3 Baso # (Auto) 0.1 Abs Immat Gran (auto) 0.23 H Absolute Neuts (auto) 8.3 Absolute Nucleated RBC 0.000 Nucleated RBC % (auto) 0.0 Anion Gap 11 L Estim Creat Clear Calc 113.8 Estimated GFR > 60 Fasting Glucose 90 Calcium 8.0 L Total Bilirubin 0.7 AST 19 ALT 13 Alkaline Phosphatase 181 H Total Protein 4.6 L Albumin 2.6 L Vitamin B12 1896 H Folate 14.3 Procalcitonin 04/16/22 06:07 MCV MCH MCHC RDW Plt Count MPV Immature Gran % (Auto) Neut % (Auto) Lymph % (Auto) Henry % (Auto) Eos % (Auto) Baso % (Auto) Lymph # (Auto) Henry # (Auto) Eos # (Auto) Baso # (Auto) Abs Immat Gran (auto) Absolute Neuts (auto) Absolute Nucleated RBC Nucleated RBC % (auto) Anion Gap Estim Creat Clear Calc Estimated GFR Fasting Glucose Calcium Total Bilirubin AST ALT Alkaline Phosphatase Total Protein Albumin Vitamin B12 Folate Procalcitonin 6.91 Microbiology Microbiology Results: Microbiology 04/12/22 11:25 Blood Culture - Preliminary Blood - Venous Gram negative saida 04/12/22 11:25 Blood Culture - Preliminary Blood - Venous Gram negative saida 04/13/22 19:14 Blood Culture - Preliminary Blood - Venous No growth after 48 hours. 04/13/22 19:14 Blood Culture - Preliminary Blood - Venous No growth after 48 hours. Assessment and Plan (1) Pneumonia: Status: Acute (2) HTN (hypertension): Status: Acute (3) Parkinsons: Status: Acute Plan d#5 71yo M with Parkinson disease presenting with fever and dyspnea, found to have bandemia + pneumonia # pneumonia - levofloxacin + doxycycline d#5- PO as pt has no IV access and refused central venous access # GNR bacteremia - continue levofloxacin pending speciation # AHRF - wean O2 as tolerated # HTN - continue lisinopril, diltiazem # Parkinson disease - continue donepezil, Sinemet, memantine # RLS - continue ropinirole, pregabalin # mood disorder - continue duloxetine # hypothyroidism - continue LT4 # prostatism - continue finasteride, tamsulosin # VTE ppx: LMWH # dispo: anticipate home in next 1-2d In my clinical judgment, the patient requires continued inpatient hospitalization for the following reasons: hypoxia, bacteremia Time Spent With Patient Time: Total time managing care of this patient today __35__ minutes. Quality Stroke Does the patient have a stroke diagnosis?: No VTE Prior VTE?: No VTE Risk Level:: Medical - moderate - high VTE Device Contraindication: Treatment Not Indicated VTE Drug Contraindication: N/A - Med Ordered
[2022-04-16 15:53] VITALS: BP 167/75; PULSE 81; RESP 18; TEMP 36.9; O2SAT 92
[2022-04-16] MEDS: levoFLOXacin/D5W 750 MG/150 ML PIGGYBACK 100 MG IV (16:38)
[2022-04-16] MEDS: metroNIDAZOLE/NS 500 MG/100 ML PIGGYBACK 100 MG IV ×2 (17:43→23:53)
[2022-04-16] MEDS: Donepezil HCl 10 MG TABLET PO (19:16)
[2022-04-16] MEDS: rOPINIRole HCL 2 MG TABLET 12 MG PO (19:16)
[2022-04-16] MEDS: 0.9 % Sodium Chloride Flush 3 ML SYRINGE IVFLUSH (19:17)
[2022-04-16 20:00] VITALS: BP 150/76; PULSE 82; RESP 19; TEMP 37.7; O2SAT 93
[2022-04-16] MEDS: traZODone HCL 100 MG TABLET 300 MG PO (21:59)
[2022-04-17] VITALS (7 sets, daily range): BP systolic 136–165; BP diastolic 67–81; PULSE 64–88; RESP 18–20; TEMP 36.4–37.4; O2SAT 92–93
[2022-04-17] MEDS: oxyCODONE HCl Immed Release 5 MG TABLET PO ×5 (02:00→21:58)
[2022-04-17] MEDS: Levothyroxine Sodium 50 MCG TABLET PO (06:04)
[2022-04-17] MEDS: Omeprazole 20 MG CAPSULE.DR PO (06:04)
[2022-04-17 06:25] LABS: Hemoglobin 12.1 g/dl (14.0-18.0); Mean Corpuscular HGB Conc 32.7 g/dl (31.0-36.0); Mean Corpuscular Hemoglobin 32.1 pg (27.0-33.0); Mean Corpuscular Volume 98.1 fL (80.0-98.0); Mean Platelet Volume 8.8 fL (9.4-12.4); Platelet Count 267 X10*3/uL (160-400); Red Blood Count 3.77 X10*6/uL (4.60-5.80); Red Cell Distribution Width 12.6 % (11.0-16.0); White Blood Count 10.1 X10*3/uL (4.8-10.8)
[2022-04-17 06:51] LABS: Anion Gap 12 (12-20); Blood Urea Nitrogen 13 mg/dL (9-16); Calcium 8.1 mg/dL (8.4-10.2); Carbon Dioxide 30 mmol/L (22-29); Chloride 106 mmol/L (96-108); Creatinine Clr Calc Pharmacy 113.8; Estimated Glomerular Filt Rate > 60; Glucose Random 92 mg/dL (60-115); Potassium 3.4 mmol/L (3.3-5.1); Sodium 145 mmol/L (135-145)
[2022-04-17] MEDS: Memantine HCl 10 MG TABLET PO ×2 (07:48→20:37)
[2022-04-17] MEDS: Tamsulosin HCL 0.4 MG CAPSULE PO ×2 (07:49→20:36)
[2022-04-17] MEDS: Cholecalciferol (Vitamin D3) 25 MCG TABLET 50 MCG PO (07:49)
[2022-04-17] MEDS: dilTIAZem HCL CD 240 MG CAP.ER.DEG PO (07:49)
[2022-04-17] MEDS: Pregabalin 150 MG CAPSULE 300 MG PO ×2 (07:49→19:00)
[2022-04-17] MEDS: Doxycycline Monohydrate 100 MG CAPSULE PO ×2 (07:49→20:36)
[2022-04-17] MEDS: lisinopriL 20 MG TABLET PO (07:51)
[2022-04-17] MEDS: Finasteride 5 MG TABLET PO (07:51)
[2022-04-17] MEDS: DULoxetine HCl 60 MG CAPSULE.DR PO (07:51)
[2022-04-17] MEDS: Multivitamin TABLET 1 TAB PO (07:51)
[2022-04-17] MEDS: Carbidopa/Levodopa 25/100 TABLET 1 TAB PO ×4 (07:51→20:36)
[2022-04-17] MEDS: Lidocaine 4 % Patch ADH..PATCH 1 PATCH TRANSDERMA (07:52)
[2022-04-17] MEDS: metroNIDAZOLE/NS 500 MG/100 ML PIGGYBACK 100 MG IV ×2 (08:04→16:03)
[2022-04-17] MEDS: 0.9 % Sodium Chloride Flush 3 ML SYRINGE IVFLUSH ×2 (08:04→16:05)
[2022-04-17 08:45] LABS: C Reactive Protein 19.36 mg/dL (< or = 0.50)
--- NOTE | 2022-04-17 09:51 | P.PNIM_ITS ---
Subjective Subjective Date of Service: 04/17/22 Interval History: dyspnea improved but remains on 1L O2 via NC. feels weak and endorses subjective fevers BCx from 04/12 growing Fusobacterium Review of Systems Review of Systems: Yes all other systems are reviewed and are negative Physical Exam Vital Signs: Vital Signs: Last Vital Signs Temp 98.7 F 04/17/22 07:10 Pulse 83 04/17/22 07:10 Resp 20 04/17/22 07:10 BP 164/77 H 04/17/22 07:10 Pulse Ox 93 04/17/22 07:10 O2 Del Method 04/17/22 07:10 O2 Flow Rate 1 04/17/22 07:10 FiO2 95 04/12/22 23:33 Oxygen Flow Rate 3 04/12/22 16:05 BMI result Body Mass Index 31.3 Gen: in no acute distress HEENT: sclera anicteric, moist mucus membranes Neck: supple Lungs: insp crackles L base Heart: regular rate and rhythm, no murmurs Abd: soft, non-tender, non-distended Ext: no edema Skin: warm/well-perfused Neuro: alert and oriented x3, no focal findings Psych: appropriate affect Objective Data Active Medications Acetaminophen (Acetaminophen 325 Mg Tablet) 650 mg PO Q6H PRN PRN Reason: Pain, Mild (Pain Scale 1-3) Last Admin: 04/16/22 02:41 Dose: 650 mg Documented By: GAGE Albuterol/Ipratropium (Albuterol/Iprat 2.5/0.5mg 3 Ml Ampul.Neb) 3 ml INHALE RQ4H PRN PRN Reason: Shortness of Breath Last Admin: 04/13/22 19:08 Dose: 3 ml Documented By: MONISHA Baclofen (Baclofen 20 Mg Tablet) 20 mg PO BID PRN PRN Reason: pain (scale score 4-6) Last Admin: 04/12/22 17:32 Dose: 20 mg Documented By: HARPALDENChirag Buspirone HCl (Buspirone Hcl 10 Mg Tablet) 10 mg PO BID PRN PRN Reason: Anxiety Last Admin: 04/13/22 11:52 Dose: 10 mg Documented By: PACO Carbidopa/Levodopa (Carbidopa/Levodopa 25/100 Tablet) 1 tab PO QID DEBBIE Last Admin: 04/17/22 07:51 Dose: 1 tab Documented By: ZACKARY Diltiazem HCl (Diltiazem Hcl Cd 240 Mg Cap.Er.Deg) 240 mg PO DAILY [facility]; Protocol Last Admin: 04/17/22 07:49 Dose: 240 mg Documented By: ZACKARY Donepezil HCl (Donepezil Hcl 10 Mg Tablet) 10 mg PO BEDTIME [facility] Last Admin: 04/16/22 19:16 Dose: 10 mg Documented By: NADIRA Doxycycline Monohydrate (Doxycycline Monohydrate 100 Mg Capsule) 100 mg PO Q12H [facility] Last Admin: 04/17/22 07:49 Dose: 100 mg Documented By: ZACKARY Duloxetine HCl (Duloxetine Hcl 60 Mg Capsule.Dr) 60 mg PO DAILY [facility] Last Admin: 04/17/22 07:51 Dose: 60 mg Documented By: ZACKARY Enoxaparin Sodium (Enoxaparin Sodium 40 Mg/0.4 Ml Syringe) 40 mg SUBCUT Q24H [facility] Last Admin: 04/16/22 12:15 Dose: 40 mg Documented By: DENISHA Finasteride (Finasteride 5 Mg Tablet) 5 mg PO DAILY [facility] Last Admin: 04/17/22 07:51 Dose: 5 mg Documented By: ZACKARY Levofloxacin (Levaquin) 750 mg in 150 mls @ 100 mls/hr IV Q24H [facility] Last Infusion: 04/16/22 18:31 Dose: 100 mls/hr Documented By: DENISHA Metronidazole (Flagyl) 500 mg in 100 mls @ 100 mls/hr IV Q8H [facility] Last Admin: 04/17/22 08:04 Dose: 100 mls/hr Documented By: ZACKARY Levothyroxine Sodium (Levothyroxine Sodium 50 Mcg Tablet) 50 mcg PO DAILY@0600 [facility] Last Admin: 04/17/22 06:04 Dose: 50 mcg Documented By: NADIRA Lidocaine (Lidocaine 4 % Patch Adh..Patch) 1 patch TRANSDERMA DAILY [facility] Last Admin: 04/17/22 07:52 Dose: 1 patch Documented By: ZACKARY Lisinopril (Lisinopril 20 Mg Tablet) 20 mg PO DAILY [facility]; Protocol Last Admin: 04/17/22 07:51 Dose: 20 mg Documented By: ZACKARY Memantine (Memantine Hcl 10 Mg Tablet) 10 mg PO BID [facility] Last Admin: 04/17/22 07:48 Dose: 10 mg Documented By: ZACKARY Multivitamins/Vitamin C (Multivitamin Tablet) 1 tab PO DAILY [facility] Last Admin: 04/17/22 07:51 Dose: 1 tab Documented By: ZACKARY Omeprazole (Omeprazole 20 Mg Capsule.Dr) 20 mg PO DAILY@0630 [facility] Last Admin: 04/17/22 06:04 Dose: 20 mg Documented By: NADIRA Ondansetron HCl (Ondansetron Hcl 4 Mg/2 Ml Vial) 4 mg IVPUSH Q8H PRN PRN Reason: Nausea and Vomiting Last Admin: 04/14/22 13:07 Dose: 4 mg Documented By: LUIS F Oxycodone HCl (Oxycodone Hcl Immed Release 5 Mg Tablet) 5 mg PO Q4H PRN PRN Reason: Pain, Severe (Pain Scale 7-10) Last Admin: 04/17/22 08:08 Dose: 5 mg Documented By: ZACKARY Pharmacy Consult (Consult Rx Perform Med Rec) 1 each MISCELLANE ONCE PRN PRN Reason: Consult order Pregabalin (Pregabalin 150 Mg Capsule) 300 mg PO BID [facility] Last Admin: 04/17/22 07:49 Dose: 300 mg Documented By: ZACKARY Ropinirole HCl (Ropinirole Hcl 2 Mg Tablet) 12 mg PO BEDTIME [facility] Last Admin: 04/16/22 19:16 Dose: 12 mg Documented By: NADIRA Ropinirole HCl (Ropinirole Hcl 2 Mg Tablet) 6 mg PO DAILY@1200 [facility] Last Admin: 04/16/22 12:15 Dose: 6 mg Documented By: DENISHA Sodium Chloride (0.9 % Sodium Chloride Flush 3 Ml Syringe) 3 ml IVFLUSH QSHIFT [facility] Last Admin: 04/17/22 08:04 Dose: 3 ml Documented By: ZACKARY Tamsulosin HCl (Tamsulosin Hcl 0.4 Mg Capsule) 0.4 mg PO BID [facility] Last Admin: 04/17/22 07:49 Dose: 0.4 mg Documented By: ZACKARY Tizanidine HCl (Tizanidine Hcl 4 Mg Tablet) 4 mg PO TID PRN PRN Reason: muscle spasticity Last Admin: 04/16/22 02:41 Dose: 4 mg Documented By: GAGE Trazodone HCl (Trazodone Hcl 100 Mg Tablet) 300 mg PO BEDTIME PRN PRN Reason: insomnia Last Admin: 04/16/22 21:59 Dose: 300 mg Documented By: NADIRA Vitamin D (Cholecalciferol (Vitamin D3) 25 Mcg Tablet) 50 mcg PO DAILY DEBBIE Last Admin: 04/17/22 07:49 Dose: 50 mcg Documented By: ZACKARY Labs CBC & Chem 7: 04/17/22 06:19 04/17/22 06:19 Labs: Laboratory Results - last 24 hr 04/17/22 04/17/22 04/17/22 06:19 06:19 06:19 MCV 98.1 H MCH 32.1 MCHC 32.7 RDW 12.6 Plt Count 267 MPV 8.8 L Absolute Nucleated RBC 0.000 Nucleated RBC % (auto) 0.0 Anion Gap 12 Estim Creat Clear Calc 113.8 Estimated GFR > 60 Random Glucose 92 Calcium 8.1 L C-Reactive Protein 19.36 H Procalcitonin 3.70 Microbiology Microbiology Results: Microbiology 04/12/22 11:25 Blood Culture - Preliminary Blood - Venous Fusobacterium species 04/12/22 11:25 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 awaiting speciation/susceptibility. Levofloxacin d#6, metronidazole d#2. ID consultation. # AHRF - wean O2 as tolerated # HTN - continue lisinopril, diltiazem # Parkinson disease - continue donepezil, Sinemet, memantine # RLS - continue ropinirole, pregabalin # mood disorder - continue duloxetine # hypothyroidism - continue LT4 # prostatism - continue finasteride, tamsulosin # VTE ppx: LMWH # dispo: PT consult In my clinical judgment, the patient requires continued inpatient hospitalization for the following reasons: hypoxia, bacteremia requiring IV ABX Time Spent With Patient Time: Total time managing care of this patient today __40__ minutes. Quality Stroke Does the patient have a stroke diagnosis?: No VTE Prior VTE?: No VTE Risk Level:: Medical - moderate - high VTE Device Contraindication: Treatment Not Indicated VTE Drug Contraindication: N/A - Med Ordered
[2022-04-17] MEDS: rOPINIRole HCL 2 MG TABLET 6 MG PO (12:51)
[2022-04-17] MEDS: Enoxaparin Sodium 40 MG/0.4 ML SYRINGE SUBCUT (14:15)
[2022-04-17] MEDS: levoFLOXacin/D5W 750 MG/150 ML PIGGYBACK 100 MG IV (17:17)
[2022-04-17] MEDS: Donepezil HCl 10 MG TABLET PO (20:36)
[2022-04-17] MEDS: rOPINIRole HCL 2 MG TABLET 12 MG PO (20:38)
[2022-04-17] MEDS: traZODone HCL 100 MG TABLET 300 MG PO (21:57)
[2022-04-17] MEDS: Acetaminophen 325 MG TABLET 650 MG PO (23:10)
[2022-04-18] MEDS: 0.9 % Sodium Chloride Flush 3 ML SYRINGE IVFLUSH ×2 (00:34→09:03)
[2022-04-18] MEDS: metroNIDAZOLE/NS 500 MG/100 ML PIGGYBACK 100 MG IV ×2 (00:34→08:55)
[2022-04-18] MEDS: TiZANidine HCL 4 MG TABLET PO (00:42)
[2022-04-18] MEDS: oxyCODONE HCl Immed Release 5 MG TABLET PO ×2 (01:47→06:06)
[2022-04-18 03:48] VITALS: BP 142/90; PULSE 83; RESP 20; TEMP 37; O2SAT 92
[2022-04-18] MEDS: Levothyroxine Sodium 50 MCG TABLET PO (06:03)
[2022-04-18] MEDS: Omeprazole 20 MG CAPSULE.DR PO (06:03)
[2022-04-18 07:27] VITALS: BP 150/67; PULSE 82; RESP 18; TEMP 36.4; O2SAT 96
[2022-04-18] MEDS: dilTIAZem HCL CD 240 MG CAP.ER.DEG PO (08:53)
[2022-04-18] MEDS: Tamsulosin HCL 0.4 MG CAPSULE PO (08:54)
[2022-04-18] MEDS: Memantine HCl 10 MG TABLET PO (08:54)
[2022-04-18] MEDS: Cholecalciferol (Vitamin D3) 25 MCG TABLET 50 MCG PO (08:54)
[2022-04-18] MEDS: Pregabalin 150 MG CAPSULE 300 MG PO (08:54)
[2022-04-18] MEDS: Doxycycline Monohydrate 100 MG CAPSULE PO (08:54)
[2022-04-18] MEDS: lisinopriL 20 MG TABLET PO (08:54)
[2022-04-18] MEDS: Carbidopa/Levodopa 25/100 TABLET 1 TAB PO ×2 (08:54→12:04)
[2022-04-18] MEDS: Multivitamin TABLET 1 TAB PO (08:54)
[2022-04-18] MEDS: DULoxetine HCl 60 MG CAPSULE.DR PO (08:54)
[2022-04-18] MEDS: Lidocaine 4 % Patch ADH..PATCH 1 PATCH TRANSDERMA (08:55)
[2022-04-18] MEDS: Finasteride 5 MG TABLET PO (08:55)
[2022-04-18 11:17] VITALS: BP 139/70; PULSE 83; RESP 16; TEMP 36.4; O2SAT 96
[2022-04-18] MEDS: rOPINIRole HCL 2 MG TABLET 6 MG PO (12:04)
--- NOTE | 2022-04-18 12:26 | P.F2F_ITS ---
Service Date Service Date: 04/18/22 Encounter Date of encounter: 04/18/22 Reasons for Services Signs and symptoms assessed: Gross Deconditioning, Impaired Bed Mobility, Impaired FMC, Impaired Gait Pattern, Impaired Joint ROM,Impaired Safety,Impaired Standing Balance, Impaired Transfer Ability,Muscle Weakness,Pain Reason for physical therapy: home safety and mobility, therapeutic exercises, restore joint function, gait/transfer training, assess need for DME, ADL training and energy conservation Homebound: Leaving the home is medically contraindicated at this time without the asist of a device and/or another person due th the listed conditions above and below. Reason homebound: unsteady gait / fall risk and weakness related to hospital stay Homebound supporting statement: -Frequency/Duration 3-4X/WK -Goals 3-4 VISITS 1. BED MOB INDEPENDENTLY 2. TRANSFER INDEPENDENTLY TO W/WALKER 3. GAIT X 200' WITH CG TO W/ WALKER -Treatment Plan Bed Mobility, Transfer Training,Gait Training,Stair Training, Therapeutic Activities, Therapeutic Exercise,Neuro Re-education, Patient Education, Safety,Balance Certification: Based on the above findings, I certify that this patient is confined to the home and needs intermittent long term care, physical therapy and/or speech therapy, or continues to need occupational therapy. The patient is under my care, and I have initiated the establishment of the plan of care. The patient will be followed by a physician who will periodically review the plan of care. Time Spent With Patient Time: Total time managing care of this patient today ____ minutes.
--- NOTE | 2022-04-18 12:55 | P.DS_ITS ---
DS: Providers Provider Date of Service: 04/18/22 Date of admission: 04/12/22 13:13 Date of discharge: 04/18/22 Primary care physician: Enrrique Bryan MD Consults: 04/12/22 11:40 Consult to Hematology / Oncology Stat Consulting Provider: Marissa Carballo Reason for consultation: Acute Pancytopenia, febrile Has provider been notified: Yes 04/12/22 13:38 Consult to Infectious Diseases Stat Consulting Provider: Elvia Andrews Reason for consultation: FUO Has provider been notified: Yes 04/16/22 16:19 Consult to Infectious Diseases Routine Consulting Provider: Elvia Andrews Reason for consultation: fusobacterium bacteremia DS: Diagnosis Discharge Diagnosis (1) Pneumonia: Status: Acute (2) Bandemia: Status: Acute (3) Fusobacterium infection: Status: Acute (4) Anaerobic bacteremia: Status: Acute (5) Acute respiratory failure with hypoxia: Status: Acute DS: Summary Hospital Course Hospital Course: from admission H+P by hospitalist Chris Wood DO, 04/12/22: 71-year-old male with a history of Parkinson's failed back syndrome and hypothyroidism presents with 3-4 days of worsening shortness of breath and generalized body aches.? He also complained of dry cough.? states subjecti ve fevers to 101 at home that coincide with onset of shortness of breath.? In the emergency room, he has an O2 requirement which is new along with fevers to 103.? Chest x-ray read as unremarkable; labs significant for bandemia of 22%. This 71yo M with Parkinson disease presenting with fever and dyspnea was found to have bandemia + pneumonia and ultimately Fusobacterium bacteremia. ID was consulted. He was treated with levofloxacin for 6 days. Blood cultures cleared. He was weaned off oxygen. He was discharged on 12 days of levofloxacin. VNA services for home PT were arranged. Time Spent with Patient Time attestation: Total time managing care of this patient today __41__ minutes. Discharge coordination time: Greater than 30 minutes Quality: Safe Use of Opioids Does Pt have an Active Cancer Diagnosis on the Problem List?: No Quality: Stroke Does the patient have a stroke diagnosis?: No Physical Exam Vital Signs: Vital Signs: Last Vital Signs Temp 97.5 F 04/18/22 11:17 Pulse 83 04/18/22 11:17 Resp 16 04/18/22 11:17 BP 139/70 04/18/22 11:17 Pulse Ox 96 04/18/22 11:17 O2 Del Method 04/18/22 11:17 O2 Flow Rate 1 04/17/22 10:59 FiO2 95 04/12/22 23:33 Oxygen Flow Rate 3 04/12/22 16:05 BMI result Body Mass Index 31.3 Gen: in no acute distress HEENT: sclera anicteric, moist mucus membranes Neck: supple Lungs: clear bilateraly Heart: regular rate and rhythm, no murmurs Abd: soft, non-tender, non-distended Ext: no edema Skin: warm/well-perfused Neuro: alert and oriented x3, no focal findings Psych: appropriate affect DS: Data Data Completed and Pending Completed studies during hospitalization [Text1]: Laboratory Results WBC 10.1 X10*3/uL (4.8-10.8) 04/17/22 06:19 RBC 3.77 X10*6/uL (4.60-5.80) L 04/17/22 06:19 Hgb 12.1 g/dl (14.0-18.0) L 04/17/22 06:19 Hct 37.0 % (42.0-52.0) L 04/17/22 06:19 MCV 98.1 fL (80.0-98.0) H 04/17/22 06:19 MCH 32.1 pg (27.0-33.0) 04/17/22 06:19 MCHC 32.7 g/dl (31.0-36.0) 04/17/22 06:19 RDW 12.6 % (11.0-16.0) 04/17/22 06:19 Plt Count 267 X10*3/uL (160-400) 04/17/22 06:19 MPV 8.8 fL (9.4-12.4) L 04/17/22 06:19 Immature Gran % (Auto) 2.0 % (0.0-0.4) H 04/16/22 06:07 Neut % (Auto) 72.1 % (45-73) 04/16/22 06:07 Lymph % (Auto) 11.3 % (20-40) L 04/16/22 06:07 [place] % (Auto) 11.2 % (2-11) H 04/16/22 06:07 Eos % (Auto) 2.7 % (0-4) 04/16/22 06:07 Baso % (Auto) 0.7 % (0-2) 04/16/22 06:07 Lymph # (Auto) 1.3 X10*3/uL (1.2-4.9) 04/16/22 06:07 [place] # (Auto) 1.3 X10*3/uL (0.1-1.2) H 04/16/22 06:07 Eos # (Auto) 0.3 X10*3/uL (0.0-0.4) 04/16/22 06:07 Baso # (Auto) 0.1 X10*3/uL (0.0-0.2) 04/16/22 06:07 Abs Immat Gran (auto) 0.23 X10*3/uL (0.00-0.03) H 04/16/22 06:07 Absolute Neuts (auto) 8.3 x10*3/uL (2.0-8.3) 04/16/22 06:07 Absolute Nucleated RBC 0.000 X10*3/uL (0.0-0.012) 04/17/22 06:19 Nucleated RBC % (auto) 0.0 /100WBC (0.0-0.2) 04/17/22 06:19 Neutrophils % (Manual) 66 % (45-73) 04/12/22 10:21 Band Neutrophils % 22 % (3-5) H 04/12/22 10:21 Lymphocytes % (Manual) 10 % (20-40) L 04/12/22 10:21 Monocytes % (Manual) 2 % (2-11) 04/12/22 10:21 Abs Neuts (Manual) 2.0 X10*3/uL (2.0-8.3) 04/12/22 10:21 Lymphocytes # (Manual) 0.2 X10*3/uL (1.2-4.9) L 04/12/22 10:21 Platelet Estimate DECREASED (NORMAL) 04/12/22 10:21 Plt Morphology Comment NORMAL 04/12/22 10:21 RBC Morphology NOTED 04/12/22 10:21 Hypochromasia 1+ (5-14) /OIF 04/12/22 10:21 Macrocytosis 1+ (5-14) /OIF 04/12/22 10:21 Smear Tech's Comments VERIFIED 04/15/22 05:58 Smear Path Review SEE NOTE 04/12/22 10:21 PT 12.5 SEC (10.0-13.1) 04/12/22 10:21 INR 1.1 (0.9-1.1) 04/12/22 10:21 Sodium 145 mmol/L (135-145) 04/17/22 06:19 Potassium 3.4 mmol/L (3.3-5.1) 04/17/22 06:19 Chloride 106 mmol/L (96-108) 04/17/22 06:19 Carbon Dioxide 30 mmol/L (22-29) H 04/17/22 06:19 Anion Gap 12 (12-20) 04/17/22 06:19 BUN 13 mg/dL (9-16) 04/17/22 06:19 Creatinine 0.63 mg/dL (0.5-1.4) 04/17/22 06:19 Estim Creat Clear Calc 113.8 04/17/22 06:19 Estimated GFR > 60 04/17/22 06:19 Random Glucose 92 mg/dL (60-115) 04/17/22 06:19 Fasting Glucose 90 mg/dL (60-99) 04/16/22 06:07 Lactic Acid 1.8 mmol/L (0.5-2.0) 04/13/22 19:13 Lactic Acid F/U @ 2Hr 1.2 mmol/L (0.5-2.0) 04/12/22 13:41 Calcium 8.1 mg/dL (8.4-10.2) L 04/17/22 06:19 Magnesium 1.6 mg/dL (1.6-2.6) 04/12/22 10:21 Total Bilirubin 0.7 mg/dL (0.0-1.0) 04/16/22 06:07 AST 19 U/L (5-37) 04/16/22 06:07 ALT 13 U/L (0-40) 04/16/22 06:07 Alkaline Phosphatase 181 U/L (39-117) H 04/16/22 06:07 Lactate Dehydrogenase 235 U/L (118-273) 04/12/22 10:21 Total Creatine Kinase 120 U/L (38-174) 04/12/22 10:21 Troponin I High Sens 7.7 ng/L (<3.5-35.0) 04/12/22 10:21 C-Reactive Protein 19.36 mg/dL (< or = 0.50) H 04/17/22 06:19 B-Natriuretic Peptide 213 pg/mL (<100) H 04/12/22 10:21 Total Protein 4.6 g/dL (6.5-8.0) L 04/16/22 06:07 Albumin 2.6 g/dL (3.5-5.0) L 04/16/22 06:07 Vitamin B12 1896 pg/mL (200-900) H 04/16/22 06:07 Folate 14.3 ng/mL (> or = 4.0) 04/16/22 06:07 Procalcitonin 3.70 ng/mL 04/17/22 06:19 Urine Color Dark Yellow 04/12/22 10:52 Urine Appearance Clear 04/12/22 10:52 Urine pH 6.0 (5.0-9.0) 04/12/22 10:52 Ur Specific [place] 1.025 (1.005-1.025) 04/12/22 10:52 Urine Protein 100 (2+) mg/dL (Neg-Trace) H 04/12/22 10:52 Urine Glucose (UA) Negative mg/dL (Negative) 04/12/22 10:52 Urine Ketones Trace mg/dL (Negative) 04/12/22 10:52 Urine Blood Negative (Negative) 04/12/22 10:52 Urine Nitrite Negative (Negative) 04/12/22 10:52 Ur Leukocyte Esterase Negative (Negative) 04/12/22 10:52 Urine RBC 0-2 /HPF (0-2) 04/12/22 10:52 Urine WBC 0-5 /HPF (0-5) 04/12/22 10:52 Ur Squamous Epith Cells 0-2 /HPF (0-2) 04/12/22 10:52 Urine Bacteria None Seen (None Seen) 04/12/22 10:52 Hyaline Casts 0-2 /LPF (0-2) 04/12/22 10:52 Influenza Type A (PCR) NEGATIVE (Negative) 04/12/22 10:21 Influenza Type B (PCR) NEGATIVE (Negative) 04/12/22 10:21 RSV RNA Qual (PCR) NEGATIVE (Negative) 04/12/22 10:21 SARS-CoV-2 RNA (RT-PCR) NEGATIVE (Negative) 04/12/22 10:21 Impressions Shoulder X-Ray 04/12/22 13:05 IMPRESSION: Stable alignment of the left distal clavicle fracture from February 2022. Chest X-Ray 04/13/22 19:00 IMPRESSION: Interval diffuse patchy opacity seen in both upper and lower lobes and parahilar regions suggestive of infiltrates or interstitial edema. Labs on day of discharge: Preliminary micro results at discharge 04/13/22 19:14 Blood Culture - Preliminary Blood - Venous No growth after 48 hours. 04/13/22 19:14 Blood Culture - Preliminary Blood - Venous No growth after 48 hours. Discharge Plan Discharge Anticipated Discharge Date/Time: 04/18/22 12:29 Patient Disposition: Home Health Service Discharge Diagnosis: pneumonia, bacteremia Referrals: Enrrique Bryan MD [Primary Care Provider] - 1 Week Discharge Medications: New levofloxacin 750 mg tablet 750 mg PO DAILY Qty: 12 0RF Continued baclofen 20 mg tablet 20 mg PO BID PRN (Reason: pain (scale score 4-6)) 30 Days Qty: 60 11RF tizanidine 4 mg tablet 4 mg PO TID PRN (Reason: muscle spasticity) 30 Days Qty: 90 11RF diltiazem HCl 240 mg capsule,extended release 24hr 240 mg PO DAILY Qty: 90 3RF oxycodone 5 mg tablet 5 mg PO Q4H PRN (Reason: pain) 30 Days Qty: 150 0RF Rx Instructions: Partial Fill upon patient request. Patient may take up to 5 pills a day. amantadine HCl 100 mg tablet 1 tab PO TID lisinopril 20 mg tablet 1 tab PO DAILY ropinirole 3 mg tablet 6 mg PO DAILY@1200 trazodone 100 mg tablet 3 tab PO BEDTIME PRN (Reason: insomnia) buspirone 10 mg tablet 1 tab PO BID PRN (Reason: Anxiety) ferrous sulfate 325 mg (65 mg iron) Tablet,Delayed Release (Dr/Ec) 325 mg PO DAILY cholecalciferol (vitamin D3) [Vitamin D3] 50 mcg (2,000 unit) Tablet 50 mcg PO DAILY pantoprazole 40 mg tablet,delayed release (DR/EC) 40 mg PO DAILY@0630 ondansetron HCl 4 mg tablet 4 mg PO Q8H PRN (Reason: Nausea) ropinirole 3 mg tablet 12 mg PO BEDTIME Rx Instructions: starting to reduce to stop levothyroxine 50 mcg tablet 50 mcg PO DAILY@0600 lidocaine 5 % adhesive patch,medicated 1 patch topical DAILY Rx Instructions: leave on most painful area for up to 12 hrs diclofenac sodium 1 % gel 2 g topical QID PRN (Reason: Inflammation) Rx Instructions: apply to single elbow, wrist or hand; for hand includes palm/fingers/back of hand carbidopa-levodopa 25-100 mg tablet 1 tab PO QID tamsulosin 0.4 mg capsule 0.4 mg PO BID finasteride 5 mg tablet 5 mg PO DAILY multivitamin [Daily Multi-Vitamin] Tablet 1 tab PO DAILY fluticasone propionate 50 mcg/actuation spray,suspension 1 spray intranasal BID Rx Instructions: administer into both nostrils duloxetine 60 mg capsule,delayed release(DR/EC) 60 mg PO DAILY pregabalin 300 mg capsule 300 mg PO BID memantine 10 mg tablet 10 mg PO BID donepezil 10 mg tablet 10 mg PO BEDTIME Discharge Orders: Discharge Order (Routine); Ordered 04/18/22 Ordered By: Sirena Hill Diet: Low salt diet Activity on Discharge: As tolerated Stand Alone Forms: Patient Portal Discharge page Care Plan Goals: recovery from pneumonia, cure of bacteremia Health Concerns: pneumonia, bacteremia Plan of Treatment: levofloxacin 750 mg daily x 12 days Please follow up with your primary care doctor within 1 week. Return to the hospital if you experience recurrent or worsening symptoms. Assessment: See Discharge Summary.
--- NOTE | 2022-04-18 13:08 | MHC.CM.PN ---
DP: PT MEDICALLY CLEARED FOR DC HOME WITH VNA SERVICES WITH [facility]. RN AWARE. [facility] NOTIFIED. [facility] WILL TRANSPORT.
--- NOTE | 2022-04-21 15:45 | PM.EVENT ---
Event Note Date of Service: 04/21/22 Event Note: called by micro that 1/2 blood cultures positive for fusobacterium nucleatum. He was d/c 04/18 with po levaquin. at that time blood cultures were negative. Blood cultures returned positive on day 5. Discussed with ID, Recommended to have patient return to the emergency department to have repeat set of blood cultures drawn. If patient clinically well he can return home and resume current treatment. If he appears ill, or is febrile would consider readmission for repeat ECHO and change of abx to Zosyn. called patient to update him. He has been feeling well, denies any fever, chills, shortness of breath. He agrees to return to the emergency department but is unable to come tonight and plans to return in the morning. ED called, expect given. Time Spent With Patient Time: Total time managing care of this patient today ____ minutes.
== END 2022-04-18 14:43 | disposition home health service (06) | DRG 193 ==
LOC: HO.ED 12:13 → HO.EDOVER 13:25 → HO.IMC 17:49
PROVIDERS: Admitting Provider Hospitalist; Emergency Provider Student in an Organized Health Care Education/Training Program; PCP Internal Medicine; Visit Provider Family Medicine
DX: J18.9 Pneumonia, unspecified organism (principal); J96.01 Acute respiratory failure with hypoxia; D61.818 Other pancytopenia; R78.81 Bacteremia; N40.0 Benign prostatic hyperplasia without lower urinary tract symptoms; E03.9 Hypothyroidism, unspecified; I10 Essential (primary) hypertension; B96.89 Other specified bacterial agents as the cause of diseases classified elsewhere; G20 Parkinson's disease; Z20.822 Contact with and (suspected) exposure to COVID-19; Z87.891 Personal history of nicotine dependence; Z88.1 Allergy status to other antibiotic agents; Z88.2 Allergy status to sulfonamides; Z79.51 Long term (current) use of inhaled steroids; Z79.890 Hormone replacement therapy; Z79.899 Other long term (current) drug therapy
CPT/HCPCS: 0241U; 36415; 71045; 73030; 80048; 80053; 81001; 81003; 82550; 82607; 82746; 83605; 83615; 83735; 83880; 84145; 84484; 85007; 85025; 85027; 85610; 86140; 87040; 87076; 87185; 87205; 93005; 94640; 96365; 96375; 97162; 99285; C1758; J1650; J1940; J1956; J2405

== ENCOUNTER 2022-04-24 14:39 | Outpatient (REF) | payer MEDICARE, OTHER, SELFPAY | END 2022-04-24 14:40 | disposition home or self-care (01) | LOC: HO.LAB 14:39 | PROVIDERS: PCP Internal Medicine; Referring Provider Internal Medicine; Visit Provider Nurse Practitioner Acute Care | DX: R79.89 Other specified abnormal findings of blood chemistry (principal) | CPT/HCPCS: 87040 ==

== ENCOUNTER → 2022-05-05 09:54 | Outpatient (BNVA) | payer MEDICARE, OTHER, SELFPAY | PROVIDERS: PCP Internal Medicine; Visit Provider Nurse Practitioner Family | DX: Z51.81 Encounter for therapeutic drug level monitoring (principal); M17.0 Bilateral primary osteoarthritis of knee; M96.1 Postlaminectomy syndrome, not elsewhere classified; G89.4 Chronic pain syndrome; Z79.891 Long term (current) use of opiate analgesic | CPT/HCPCS: 99212 ==

== ENCOUNTER 2022-05-17 16:25 | Inpatient (IN) | payer MEDICARE, OTHER, SELFPAY ==
--- NOTE | ~2022-05-17 | XR_ITS ---
EXAMINATION: XR CHEST CLINICAL INFORMATION: Diminished lung sounds COMPARISON: 04/13/2022 TECHNIQUE: Frontal view of the chest was obtained. FINDINGS: The lungs are hypoinflated. There is interval decrease in findings of pulmonary edema compared to prior. There is mild residual prominence of the central vasculature. No evidence of pneumothorax or significant pleural effusion. Cardiac size appears within normal limits accounting for patient rotation. No acute osseous findings are seen. Cervicothoracic fusion hardware is partially visualized. Chronic appearing changes of the left shoulder. XR/XR chest 1V IMPRESSION: Interval decrease in findings of pulmonary edema compared to prior. Suggestion of mild residual central vascular congestion.
--- NOTE | ~2022-05-17 | CT_ITS ---
EXAMINATION: CT BRAIN AND CT ABDOMEN PELVIS WITHOUT IV CONTRAST. CLINICAL INFORMATION: AMS. Inability to void. Rule out obstructing lesion. COMPARISON: None TECHNIQUE: 5 mm thin axial and reformatted 2 mm thin sagittal and coronal images of brain were obtained. Subsequently axial 5 mm thin and reformatted 3 mm thin sagittal and coronal images of abdomen and pelvis were obtained without contrast. DLP [address] examination was performed using dose optimization technique as appropriate, variously including the following: Automated exposure control Adjustment of MA and/or KV according to patient size(this includes techniques or standardized protocols for targeted exams where dose is matched to indication/reason for exam; extremities or head. Use of iterative reconstruction techniques. FINDINGS: BRAIN: There is no acute intra-axial, extra-axial bleed, masses or midline shift. There is no acute infarction evolution. There is no edema lateral ventricles are symmetrical but mildly enlarged. Slightly prominent but symmetrical cortical sulci seen. The king to white matter differentiation is maintained normal. No abnormality seen in the posterior fossa. Bone windows reveal no calvarial abnormality. There is a right frontal scalp hematoma with scattered calcifications throughout the frontal scalp. The paranasal sinuses and mastoid air cells are well-aerated. ABDOMEN AND PELVIS: Minimal atelectatic changes seen in the right lung base. The heart size is normal. The liver is homogeneous in density, enlarged in size measuring 20 cm and normal contour. No intrahepatic or extrahepatic ductal dilatation seen. Gallbladder has been surgically removed. Visualized spleen, pancreas and bilateral adrenal glands are unremarkable. There are no radiopaque calculi or hydroureteronephrosis. The stomach is distended with fluid. There are multiple dilated small bowel loops with air-fluid levels. There is scattered free air in the peritoneum. There is moderate stool seen throughout the colon. There is diffuse colonic diverticulosis with areas of mural thickening involving the entire sigmoid colon and fat stranding suggestive of diverticulitis. There is a extraluminal air visualized in the mid to lower pelvis on axial image 66/14 and 73/14 likely site of perforation secondary to diverticulitis. Minimal free fluid is seen in the pelvis. The abdominal aorta is of normal caliber no retroperitoneal abnormal size lymph nodes seen. There is a left inguinal hernia containing fat.. Imaging through the pelvis reveals nondistended urinary bladder to be unremarkable. Prostate gland is normal size with scattered calcification. Bone windows reveal degenerative disc changes with vacuum disc phenomena L2-L3 through L5/S1 disc levels with mild ventral spondylosis. No aggressive lytic or sclerotic process seen. CT/CT abdomen pelvis wo IV con IMPRESSION: Diffuse colonic diverticulosis most prominent sigmoid colon with diffuse mural thickening, significant fat stranding and extraluminal air along the left aspect of the sigmoid colon as described above. There is scattered free air extending into the upper abdomen. No acute intracranial process seen. Suspect right frontal scalp hematoma. Results were immediately called by phone to Clifton Mayen in ED at 9:35 PM.
--- NOTE | ~2022-05-17 | XR_ITS ---
EXAMINATION: XR CHEST CLINICAL INFORMATION: Shortness of breath COMPARISON: 05/18/2022 TECHNIQUE: Frontal view of the chest was obtained. FINDINGS: The lungs are hypoinflated. Mild streaky bibasilar opacities noted. Mildly prominent central vasculature and surrounding interstitium. No evidence of pneumothorax. Trace right pleural effusion cannot be excluded. The cardiomediastinal contour is unremarkable. Partially visualized cervicothoracic spinal fusion hardware. XR/XR chest 1V IMPRESSION: Low lung volumes with mild streaky bibasilar opacities more suggestive of atelectasis. Mildly prominent central vasculature and surrounding interstitium may reflect a degree of congestion versus airways disease.
--- NOTE | ~2022-05-17 | XR_ITS ---
EXAMINATION: XR ABDOMEN WITH DECUBITUS VIEWS CLINICAL INDICATION: Gastric distention. COMPARISON: CT abdomen and pelvis of 05/24/2022. TECHNIQUE: Supine and left lateral decubitus views of the abdomen and pelvis. FINDINGS: Rncaoamu-wf-dzkvwo gaseous distention of the stomach is again noted, without significant interval change compared to previous CT of 05/24/2022. Wkqy-ux-osivthxu gaseous distention of the small bowel in the left hemiabdomen is also similar to the previous CT. Cutaneous chris are noted in the mid to lower hemiabdomen. Postcholecystectomy surgical clips are noted in the right upper abdominal quadrant. On decubitus view, portion of the right lateral abdomen is not included in the field of view. No evidence of free intraperitoneal air in the region of completely included abdomen and pelvis. On the lateral decubitus view, multiple air-fluid levels are noted in the small-bowel loops. Surgical hardware is partially seen in the lower thoracic spine. XR/XR abdomen w decubitus IMPRESSION: There does not appear to be significant interval change in the hyfdbyyc-of-gfjpsdnldaa gaseous distention of the stomach and yjye-gc-swebcgcz gaseous distention of the small-bowel loops in the left hemiabdomen compared to previous CT. Developing small-bowel obstruction cannot be excluded.
--- NOTE | ~2022-05-17 | CT_ITS ---
EXAMINATION: CT ABDOMEN AND PELVIS WITH CONTRAST CLINICAL INFORMATION: Perforated diverticulitis, leukocytosis. Rule out abscess. COMPARISON: 05/17/2022 TECHNIQUE: Multidetector volumetric images were obtained from the superior aspect of the liver through the pubic symphysis following administration 85 mL of Omnipaque 350 intravenous contrast. Sagittal and coronal reformatted images were obtained on the technologist's workstation. Oral contrast: No This CT examination was performed using dose optimization techniques as appropriate, variously including the following: *Automated exposure control *Adjustment of mA and/or kV according to patient size (this includes techniques or standardized protocols for targeted exams where dose is matched to indication/reason for exam; i.e. extremities or head) *Use of iterative reconstruction technique DLP: 693 mGy-cm FINDINGS: LUNG BASES: The visualized lung bases are unremarkable. LIVER, GALLBLADDER, AND BILIARY TREE: The liver is normal in size, shape, and attenuation. No focal hepatic lesion or biliary ductal dilatation is present. Cholecystectomy. PANCREAS: Unremarkable. SPLEEN: Unremarkable. ADRENAL GLANDS: Unremarkable. KIDNEYS AND URETERS: The kidneys are normal in size, shape, and attenuation. No hydronephrosis, hydroureter, or calculi seen. No perinephric stranding. Simple cysts are noted in both kidneys. No specific follow-up recommended. BLADDER: Partially distended without wall thickening. Gas in the bladder lumen likely associated with prior catheterization. GASTROINTESTINAL TRACT: Distended stomach without wall thickening. Small bowel dilatation with gas and fluid. Air-fluid levels noted. This may represent ileus in the postoperative state. That said, the distal small bowel is decompressed. The small bowel transitions to decompressed gradually. There is a left lower quadrant colostomy. Milla pouch noted. No fluid collection. No free air. Small amount of pelvic free fluid, and the left lower quadrant most prominently. ABDOMINAL WALL: Left lower quadrant colostomy. Small amount of anasarca. Midline skin chris. Fat-containing left inguinal hernia. LYMPH NODES: Normal. VASCULAR: Normal caliber aorta with mild atherosclerotic calcification. PELVIC VISCERA: The prostate and seminal vesicles are unremarkable. OSSEOUS STRUCTURES: No acute or suspicious osseous abnormality. Degenerative change throughout the spine. Degenerative change of both hips. CT/CT abdomen pelvis w IV con IMPRESSION: 1. Left lower quadrant colostomy with Milla pouch. Small amount of free fluid in the left lower quadrant. No fluid collection. 2. Dilated stomach and small bowel with air-fluid levels. The distal small bowel is decompressed. This may represent ileus in the postoperative state. Fleischner guidelines were followed.
--- NOTE | ~2022-05-17 | CT_ITS ---
EXAMINATION: CT ABDOMEN AND PELVIS WITHOUT CONTRAST CLINICAL INFORMATION: Elevated WBC and drainage. History of surgery for perforated diverticulitis. COMPARISON: 05/24/2022 TECHNIQUE: Multidetector volumetric imaging was performed from the superior aspect of the liver through the pubic symphysis. Sagittal and coronal reformatted images were obtained on the technologist's workstation. This CT examination was performed using dose optimization techniques as appropriate, variously including the following: *Automated exposure control *Adjustment of mA and/or kV according to patient size (this includes techniques or standardized protocols for targeted exams where dose is matched to indication/reason for exam; i.e. extremities or head) *Use of iterative reconstruction technique DLP: 969 mGy-cm FINDINGS: LUNG BASES: No acute findings in lung bases compared to 05/24/2022. Again noted are mild patchy groundglass opacities. No pleural effusion. LIVER: The liver has normal size, shape, and attenuation. No evidence of liver mass. GALLBLADDER AND BILIARY TREE: Gallbladder is surgically absent. No dilated bile ducts. PANCREAS: Normal. No edema, pancreatic ductal dilatation or mass. SPLEEN: Normal. ADRENAL GLANDS: Normal. KIDNEYS AND URETERS: Kidneys are normal in size. No nephrolithiasis or hydronephrosis. 1.8 cm simple cyst of the posterior right lower pole and 1.5 cm simple cortical cyst of the left upper pole. No renal imaging follow-up is recommended for simple cysts. The ureters are unremarkable. BLADDER: No evidence of bladder wall thickening. Small foci of gas within the bladder likely from recent catheterization. BOWEL AND PERITONEUM: The proximal loops of small bowel remain dilated and have air-fluid levels. The degree of small bowel distention has mildly improved since 05/24/2022. For example, a loop in the left abdomen that was 5.2 cm AP diameter of 05/24/2022 is now 4.5 cm diameter. There appears to be a gradual transition from dilated to nondilated bowel in the mid to lower abdomen deep to the abdominal wall. No evidence of an obstructing mass or focal wall thickening. There is a new midline incisional hernia. Although a small bowel loop herniates in between the rectus abdominis muscles this does not represent a transition point. Mckeon's pouch is seen within the lower pelvis. Small amount of free fluid is present in the pelvis. However, no evidence of abscess. ABDOMINAL WALL: There is edema along the midline abdominal wound as well as around the site of descending colostomy. A few small gas bubbles are present within the midline lower abdominal wound. There is a fat-containing left inguinal hernia. Persistent edema of subcutaneous tissues along the flanks and thighs. Again, there is a new finding of an incisional hernia of the midline abdominal wall contains fat and small bowel. Also, there is a new, small amount of fluid along the superior margin of the hernia sac (image 34, series 3). VASCULATURE: Abdominal aorta is normal in caliber. LYMPH NODES: No pathologic sized lymph nodes in the abdomen or pelvis. No inguinal lymphadenopathy. PELVIC VISCERA: Prostate gland is unremarkable. MUSCULOSKELETAL: No acute findings within the degenerated thoracic and lumbar spine. Multilevel degenerative disc disease of the lumbar spine. No suspicious bone lesions. CT/CT abdomen pelvis wo IV con IMPRESSION: * Although small bowel remains dilated, the degree of small bowel distention is mildly improved compared to 05/24/2022. This could represent a mildly improving postoperative ileus versus an improving partial small bowel obstruction. * There is a new ventral abdominal wall incisional hernia that contains fat and small bowel. Also, there is a new collection of fluid along the superior margin of the hernia sac (image 34, series 3). * Persistent edema/inflammation in subcutaneous tissue around the descending colostomy without abdominal wall fluid collection in this area.
--- NOTE | 2022-05-17 16:28 | ED.MALEGU ---
HPI - Male Genitourinary General Chief complaint: Urogenital-Male <Viktoriya Alvarado NP - Last Filed: 05/17/22 16:33> Stated complaint: urinary issue, cant urinate <Viktoriya Alvarado NP - Last Filed: 05/17/22 16:33> Time Seen by Provider: 05/17/22 19:37 <Viktoriya Alvarado NP - Last Filed: 05/17/22 16:33> Source: patient <RADHA Man - Last Filed: 05/17/22 23:35> Mode of arrival: ambulatory <RADHA Man - Last Filed: 05/17/22 23:35> Limitations: no limitations <RADHA Man Last Filed: 05/17/22 23:35> History of Present Illness HPI Narrative: This is a 71-year-old female history of right bundle-branch block, hypertensive heart disease, PACs, BPH, hypothyroidism, GERD, chronic pain syndrome on opiate contract history of anaerobic bacteremia presenting to the emergency department with inability to void,, decreased urinary stream, suprapubic abd discomfort ( constant crampy, severe in nature) for 2 days. Patient consulted with Urology was advised to come in. Does have a history of complicated UTI. Patient had a recent admission for UTI with bacteremia about a month ago. Denies fevers, chills, chest pain, shortness of breath, nausea, vomiting, abdominal pain, headache, vision changes, dizziness, testicular pain. No hx of kidney stones. <RADHA Man - Last Filed: 05/17/22 23:35> Related Data Home medications: Home Medications Medication Instructions Recorded Confirmed carbidopa 25 mg-levodopa 100 mg 1 tab PO QID 01/21/20 05/17/22 tablet diclofenac sodium 1 % topical gel 2 g topical QID PRN Inflammation 01/21/20 05/17/22 finasteride 5 mg tablet 5 mg PO DAILY 01/21/20 05/17/22 levothyroxine 50 mcg tablet 50 mcg PO DAILY@0600 01/21/20 05/17/22 lidocaine 5 % topical patch 1 patch topical DAILY 01/21/20 05/17/22 multivitamin (Daily Multi-Vitamin 1 tab PO DAILY 01/21/20 05/17/22 tablet) tamsulosin 0.4 mg capsule 0.4 mg PO BID 01/21/20 05/17/22 ondansetron HCl 4 mg tablet 4 mg PO DAILY PRN Nausea 09/15/20 05/17/22 pantoprazole 40 mg tablet,delayed 40 mg PO DAILY@0630 09/15/20 05/17/22 release ropinirole 3 mg tablet 12 mg PO BEDTIME 10/21/20 05/17/22 fluticasone propionate 50 1 spray intranasal BID 10/27/20 05/17/22 mcg/actuation nasal spray,suspension donepezil 10 mg tablet 10 mg PO BEDTIME 10/07/21 05/17/22 duloxetine 60 mg capsule,delayed 60 mg PO DAILY 10/07/21 05/17/22 release memantine 10 mg tablet 10 mg PO BID 10/07/21 05/17/22 pregabalin 300 mg capsule 300 mg PO BID 10/07/21 05/17/22 amantadine HCl 100 mg tablet 1 tab PO TID 04/12/22 05/17/22 buspirone 10 mg tablet 1 tab PO BID PRN Anxiety 04/12/22 05/17/22 cholecalciferol (vitamin D3) 50 50 mcg PO DAILY 04/12/22 05/17/22 mcg (2,000 unit) tablet (Vitamin D3) ferrous sulfate 325 mg (65 mg 325 mg PO DAILY 04/12/22 05/17/22 iron) tablet,delayed release lisinopril 20 mg tablet 1 tab PO DAILY 04/12/22 05/17/22 ropinirole 3 mg tablet 6 mg PO DAILY@1200 04/12/22 05/17/22 trazodone 100 mg tablet 3 tab PO BEDTIME PRN insomnia 04/12/22 05/17/22 Previous Rx's Medication Instructions Recorded baclofen 20 mg tablet 20 mg PO BID PRN pain (scale score 10/04/21 4-6) 30 days #60 tabs tizanidine 4 mg tablet 4 mg PO TID PRN muscle spasticity 10/04/21 30 days #90 tabs diltiazem HCl 240 mg 240 mg PO DAILY #90 caps 03/27/22 capsule,extended release 24 hr naloxone 4 mg/actuation nasal 4 mg intranasal Q2M PRN opioid 05/05/22 spray (Narcan) overdose #2 ea oxycodone 5 mg tablet 5 mg PO Q4H PRN pain 30 days #150 05/05/22 tabs <Viktoriya Alvarado NP - Last Filed: 05/17/22 16:33> Allergies/Adverse reactions: Allergies Allergy/AdvReac Type Severity Reaction Status Date / Time Sulfa (Sulfonamide Allergy Severe HIVES/DIFF. Verified 05/05/22 10:02 Antibiotics) BREATHING vancomycin [VANCOMYCIN] Allergy Severe SHORTNESS Verified 05/05/22 10:02 OF BREATH cephalexin [CEPHALEXIN] Allergy Intermediate SHORTNESS Verified 05/05/22 10:02 OF BREATH DAIRY PRODUCTS AdvReac Intermediate GI Uncoded 03/27/22 11:11 UPSET/DIARRHEA <Viktoriya Alvarado NP - Last Filed: 05/17/22 16:33> Review of Systems Review of Systems: Constitutional : No Weight loss, No Fever, No Chills, No Fatigue, No Malaise ENT/Mouth : No sore throat, No Rhinorrhea Eyes: No Eye Pain, No Swelling, No Redness Cardiovascular : No Chest Pain, No SOB, No Dyspnea on Exertion, No Orthopnea, No Edema, No Palpitations Respiratory : No Cough, No Sputum, No Wheezing Gastrointestinal : No Nausea, No Vomiting, No Diarrhea, No Constipation, + abdominal Pain, No Hematochezia, No Melena Genitourinary : No Dysuria, No Urinary Frequency, No Hematuria, + inability to void, + decreased urinary stream Musculoskeletal : No joint pain, No Myalgias, No Joint Swelling Skin : No Skin Lesions, No rash Neuro : No Weakness, No Numbness, No Dizziness, No Headache Psych : No Anxiety/Panic, No Depression All other systems reviewed and are negative <RADHA Man - Last Filed: 05/17/22 23:35> Yes all other systems are reviewed and are negative <RADHA Man Last Filed: 05/17/22 23:35> PMFSH Past Medical History Attestation statement: The following information was validated with the patient. <RADHA Man Last Filed: 05/17/22 23:35> Source: old records reviewed and nursing notes reviewed <RADHA Man Filed: 05/17/22 23:35> Medical History: Medical History Bilateral primary osteoarthritis of knee BPH (benign prostatic hyperplasia) Chronic pain syndrome Failed back syndrome of cervical spine GERD (gastroesophageal reflux disease) Hard of hearing HTN (hypertension) Hypertensive heart disease Hypothyroidism PAC (premature atrial contraction) Parkinsons Restless leg syndrome <Viktoriya Alvarado NP - Last Filed: 05/17/22 16:33> Social History Social History: Social History Household Members: Spouse Household Members Other:: 1 Housing: House Do you presently have visiting nurse or other home services: No Alcohol intake: current Alcohol intake frequency: holidays/special occasions only Patient Tobacco Use Status: Former Tobacco user Tobacco use type: Cigarette Smoked in Last 30 Days: No e-Cigarette/Vaping Use: Former Use Second Hand Smoke Exposure: No Use of substances other than those prescribed or required for medical reasons: No Substance Use Type: Painkillers Advance Directives: No Advance Directives Information Provided: Yes Advance Directives Date on File: 01/19/20 service: No Current occupational status: retired <Viktoriya Alvarado NP - Last Filed: 05/17/22 16:33> Physical Exam Vital Signs: Vital Signs: Last Vital Signs Temp 98.4 F 05/17/22 23:23 Pulse 80 05/17/22 23:23 Resp 14 05/17/22 23:23 BP 130/59 L 05/17/22 23:23 Pulse Ox 93 05/17/22 23:23 O2 Del Method 05/17/22 23:23 BMI result Body Mass Index 31.9 <Viktoriya Alvarado NP - Last Filed: 05/17/22 16:33> Vital Signs: Last Vital Signs Temp 98.4 F 05/17/22 23:23 Pulse 80 05/17/22 23:23 Resp 14 05/17/22 23:23 BP 130/59 L 05/17/22 23:23 Pulse Ox 93 05/17/22 23:23 O2 Del Method 05/17/22 23:23 BMI result Body Mass Index 31.9 vss <RADHA Man - Last Filed: 05/17/22 23:35> Appearance: Alert.? Oriented X3.? No acute distress.? Head: Normocephalic, atraumatic, no step-offs or deformities Eyes: Pupils equal, round and reactive to light.? Neck: Normal inspection.? Neck supple.? CVS: Normal heart rate and rhythm.? Pulses normal.? Respiratory: No respiratory distress.? Breath sounds normal.? Abdomen: Soft and lower abd tenderness, normal BS .? Skin: Skin warm and dry.? Normal skin color.? Normal skin turgor.? Extremities: No lower extremity edema.? No calf ttp. 5/5 strength to bilateral upper and lower extremities Back: No CVA tenderness bilaterally Neuro: Oriented X 3.? No motor deficit.? No sensory deficit. CN 2-12 intact <RADHA Man - Last Filed: 05/17/22 23:35> Course Course Course Narrative: This is a rapid medical exam. Deferred additional HPI, ROS, PE to primary provider, 71 y/o male with history of chronic pain syndrome on chronic opiates due to postlaminectomy syndrome after 2 neck fusions, osteoarthritis, Parkinson's disease, hypothyroidism, BHN, restless leg syndrome?here with complaints of decreased urination x 2 days. +groin pain/abdominal pain. No fever. [place] [facility]bacte[place] with cason placed during admission. Will obtain labs, UA, bladder scan. VSS. <Viktoriya Alvarado NP - Last Filed: 05/17/22 16:33> Reevaluation(s) Reevaluation #1: Patient's CBC with a macrocytic anemia which appears to be around patient's baseline. He is noted to have band predominance at 49 concerning for possible sepsis. Patient is also noted to have an acute kidney injury BUN of 41, creatinine 3.18. Normal lactic acid. Cason catheter will be placed at this time indication acute renal failure in to monitor I&Os. According to who is at the bedside patient appears slightly confused, will add an ammonia level and head CT. <RADHA Man - Last Filed: 05/17/22 23:35> Time: 20:10 <RADHA Man - Last Filed: 05/17/22 23:35> Reevaluation #2: Patient will be admitted to the hospitalist team for further evaluation and treatment concerns for sepsis as patient has bands predominance, acute kidney injury, hypotension. Antibiotics, fluids initiated. <RADHA Man - Last Filed: 05/17/22 23:35> Time: 20:11 <RADHA Man - Last Filed: 05/17/22 23:35> Reevaluation #3: CT of the abdomen and pelvis showing diffuse colonic diverticulosis most prominent sigmoid colon with diffuse mural thickening significant fat stranding an extra luminal air along the left aspect of the sigmoid colon as described above. Scattered free air extending into the right upper abdomen., to note in the body of the report does suggest diverticulitis. Because of this finding metronidazole added, surgery to be consulted. Patient's pressure soft however patient is still alert and oriented x4. Receiving a 30 cc/kilos bolus. Head CT unremarkable. Waiting for call back from general surgery Dr. Lugo. NPO at this time will add pre op labs PT/INR, EKG, type and screen. <RADHA Man Last Filed: 05/17/22 23:35> Time: 21:43 <RADHA Man - Last Filed: 05/17/22 23:35> Additional Reevaluation(s): Patient will be going to the operating room, general surgery currently has the operating room occupied with another patient, patient will be going after them. To remain NPO. Will continue to monitor. Will be admitted to the surgical service. <RADHA Man - Last Filed: 05/17/22 23:35> Medications Administered Discontinued Medications Generic Name Dose Route Start Last Admin Trade Name Freq PRN Reason Stop Dose Admin Sodium Chloride 2,775.99 mls @ 2,775.99 mls/hr 05/17/22 19:38 05/17/22 21:43 Ns 30 ml/kg infuse over 1 hr (2775.99 ml) 05/17/22 20:37 Infused IV Infusion .Q1H STA Levofloxacin 750 mg in 150 mls @ 100 mls/hr 05/17/22 19:38 05/17/22 20:46 Levaquin IV 05/17/22 21:07 100 mls/hr ONCE ONE Administration <Viktoriya Alvarado NP - Last Filed: 05/17/22 16:33> Medications Administered Discontinued Medications Generic Name Dose Route Start Last Admin Trade Name Nileq PRN Reason Stop Dose Admin Sodium Chloride 2,775.99 mls @ 2,775.99 mls/hr 05/17/22 19:38 05/17/22 21:43 Ns 30 ml/kg infuse over 1 hr (2775.99 ml) 05/17/22 20:37 Infused IV Infusion .Q1H STA Levofloxacin 750 mg in 150 mls @ 100 mls/hr 05/17/22 19:38 05/17/22 20:46 Levaquin IV 05/17/22 21:07 100 mls/hr ONCE ONE Administration <RADHA Man - Last Filed: 05/17/22 23:35> Medical Decision Making Medical Decision Making [facility] Narrative: 1946 71-year-old male presents with inability to void, lower abd pain, decreased urinary stream, recent history of complicated UTI with bacteremia. Symptoms have been ongoing for 2 days. Physical examination w/ lower abd pain TTP. Patient is noted to have a soft blood pressure however. Concerns for bacteremia/UTI, acute abdomen. Will rule out electrolyte abnormalities, infection, acute kidney injury, stones. Will also rule out obstructing uropathy. Unlikely diverticulitis, cholecystitis Plan at this time labs, imaging, urine, blood cultures, lactic acid. At this time infection is suspected will be given a 30 cc/kilos bolus and will give levofloxacin for broad antibiotic coverage. Upon initial evaluation a sepsis focused exam was done. <RADHA Man - Last Filed: 05/17/22 23:35> Differential Diagnosis Differential Diagnoses: The differential diagnosis associated with the presentation includes <RADHA Man - Last Filed: 05/17/22 23:35> Concerns for bacteremia/UTI, acute abdomen. Will rule out electrolyte abnormalities, infection, acute kidney injury, stones. Will also rule out obstructing uropathy. Unlikely diverticulitis, colon <RADHA Man Last Filed: 05/17/22 23:35> Admission/Observation Consideration of admission/observation: Escalation of care including admission/observation considered <RADHA Man - Last Filed: 05/17/22 23:35> Consult Healthcare Provider Management of the patient was discussed with: Hospitalist and Senior Principal (surgery) <RADHA Man - Last Filed: 05/17/22 23:35> Lab Data MDM Lab Attestation statement: I reviewed the patient's lab results. <RADHA Man - Last Filed: 05/17/22 23:35> Result Diagrams: 05/17/22 18:07 05/17/22 18:07 <Viktoriya Alvarado NP - Last Filed: 05/17/22 16:33> Labs: Lab Results 05/17/22 05/17/22 05/17/22 Range/Units 18:07 18:07 18:07 WBC 9.8 (4.8-10.8) X10*3/uL RBC 3.84 L (4.60-5.80) X10*6/uL Hgb 12.2 L (14.0-18.0) g/dl Hct 38.4 L (42.0-52.0) % MCV 100.0 H (80.0-98.0) fL MCH 31.8 (27.0-33.0) pg MCHC 31.8 (31.0-36.0) g/dl RDW 13.5 (11.0-16.0) % Plt Count TNP MPV 9.1 L (9.4-12.4) fL Immature Gran % (Auto) Cancelled Neut % (Auto) Cancelled Lymph % (Auto) Cancelled [place] % (Auto) Cancelled Eos % (Auto) Cancelled Baso % (Auto) Cancelled Lymph # (Auto) Cancelled [place] # (Auto) Cancelled Eos # (Auto) Cancelled Baso # (Auto) Cancelled Abs Immat Gran (auto) Cancelled Absolute Neuts (auto) Cancelled Absolute Nucleated RBC 0.000 (0.0-0.012) X10*3/uL Nucleated RBC % (auto) 0.0 (0.0-0.2) /100WBC Neutrophils % (Manual) 43 L (45-73) % Band Neutrophils % 49 H (3-5) % Lymphocytes % (Manual) 3 L (20-40) % Monocytes % (Manual) 4 (2-11) % Eosinophils % (Manual) 1 (0-4) % Abs Neuts (Manual) 9.0 H (2.0-8.3) X10*3/uL Lymphocytes # (Manual) 0.3 L (1.2-4.9) X10*3/uL Monocytes # (Manual) 0.4 (0.1-1.2) X10*3/uL Eosinophils # (Manual) 0.1 (0.0-0.4) X10*3/uL Platelet Estimate NORMAL (NORMAL) Plt Morphology Comment NORMAL RBC Morphology NORMAL PT (10.0-13.1) SEC INR (0.9-1.1) Sodium 141 (135-145) mmol/L Potassium 4.6 D (3.3-5.1) mmol/L Chloride 103 (96-108) mmol/L Carbon Dioxide 26 (22-29) mmol/L Anion Gap 17 (12-20) BUN 41 H (9-16) mg/dL Creatinine 3.18 H (0.5-1.4) mg/dL Estim Creat Clear Calc 22.7 Estimated GFR 19 Random Glucose 118 H (60-115) mg/dL Lactic Acid 1.2 (0.5-2.0) mmol/L Calcium 8.4 (8.4-10.2) mg/dL Total Bilirubin 1.0 (0.0-1.0) mg/dL Direct Bilirubin 0.6 H (0.0-0.5) mg/dL AST 18 (5-37) U/L ALT < 6 (0-40) U/L Alkaline Phosphatase 105 (39-117) U/L Ammonia (13-55) umol/L Troponin I High Sens (<3.5-35.0) ng/L B-Natriuretic Peptide (<100) pg/mL Total Protein 5.6 L (6.5-8.0) g/dL Albumin 3.2 L (3.5-5.0) g/dL Urine Color Urine Appearance Urine pH (5.0-9.0) Ur Specific [place] (1.005-1.025) Urine Protein (Neg-Trace) mg/dL Urine Glucose (UA) (Negative) mg/dL Urine Ketones (Negative) mg/dL Urine Blood (Negative) Urine Nitrite (Negative) Ur Leukocyte Esterase (Negative) Urine RBC (0-2) /HPF Urine WBC (0-5) /HPF Ur Squamous Epith Cells (0-2) /HPF Urine Bacteria (None Seen) Hyaline Casts (0-2) /LPF Granular Casts COVID-19 (NITO) (Negative) COVID-19 Clin Com Blood Type Antibody Screen 05/17/22 05/17/22 05/17/22 Range/Units 19:37 20:40 20:40 WBC (4.8-10.8) X10*3/uL RBC (4.60-5.80) X10*6/uL Hgb (14.0-18.0) g/dl Hct (42.0-52.0) % MCV (80.0-98.0) fL MCH (27.0-33.0) pg MCHC (31.0-36.0) g/dl RDW (11.0-16.0) % Plt Count MPV (9.4-12.4) fL Immature Gran % (Auto) Neut % (Auto) Lymph % (Auto) [place] % (Auto) Eos % (Auto) Baso % (Auto) Lymph # (Auto) [place] # (Auto) Eos # (Auto) Baso # (Auto) Abs Immat Gran (auto) Absolute Neuts (auto) Absolute Nucleated RBC (0.0-0.012) X10*3/uL Nucleated RBC % (auto) (0.0-0.2) /100WBC Neutrophils % (Manual) (45-73) % Band Neutrophils % (3-5) % Lymphocytes % (Manual) (20-40) % Monocytes % (Manual) (2-11) % Eosinophils % (Manual) (0-4) % Abs Neuts (Manual) (2.0-8.3) X10*3/uL Lymphocytes # (Manual) (1.2-4.9) X10*3/uL Monocytes # (Manual) (0.1-1.2) X10*3/uL Eosinophils # (Manual) (0.0-0.4) X10*3/uL Platelet Estimate (NORMAL) Plt Morphology Comment RBC Morphology PT (10.0-13.1) SEC INR (0.9-1.1) Sodium (135-145) mmol/L Potassium (3.3-5.1) mmol/L Chloride (96-108) mmol/L Carbon Dioxide (22-29) mmol/L Anion Gap (12-20) BUN (9-16) mg/dL Creatinine (0.5-1.4) mg/dL Estim Creat Clear Calc Estimated GFR Random Glucose (60-115) mg/dL Lactic Acid (0.5-2.0) mmol/L Calcium (8.4-10.2) mg/dL Total Bilirubin (0.0-1.0) mg/dL Direct Bilirubin (0.0-0.5) mg/dL AST (5-37) U/L ALT (0-40) U/L Alkaline Phosphatase (39-117) U/L Ammonia 37 (13-55) umol/L Troponin I High Sens (<3.5-35.0) ng/L B-Natriuretic Peptide 172 H (<100) pg/mL Total Protein (6.5-8.0) g/dL Albumin (3.5-5.0) g/dL Urine Color Urine Appearance Urine pH (5.0-9.0) Ur Specific [place] (1.005-1.025) Urine Protein (Neg-Trace) mg/dL Urine Glucose (UA) (Negative) mg/dL Urine Ketones (Negative) mg/dL Urine Blood (Negative) Urine Nitrite (Negative) Ur Leukocyte Esterase (Negative) Urine RBC (0-2) /HPF Urine WBC (0-5) /HPF Ur Squamous Epith Cells (0-2) /HPF Urine Bacteria (None Seen) Hyaline Casts (0-2) /LPF Granular Casts COVID-19 (NITO) Negative (Negative) COVID-19 Clin Com See Note Blood Type Antibody Screen 05/17/22 05/17/22 05/17/22 Range/Units 22:17 22:17 22:34 WBC (4.8-10.8) X10*3/uL RBC (4.60-5.80) X10*6/uL Hgb (14.0-18.0) g/dl Hct (42.0-52.0) % MCV (80.0-98.0) fL MCH (27.0-33.0) pg MCHC (31.0-36.0) g/dl RDW (11.0-16.0) % Plt Count MPV (9.4-12.4) fL Immature Gran % (Auto) Neut % (Auto) Lymph % (Auto) [place] % (Auto) Eos % (Auto) Baso % (Auto) Lymph # (Auto) [place] # (Auto) Eos # (Auto) Baso # (Auto) Abs Immat Gran (auto) Absolute Neuts (auto) Absolute Nucleated RBC (0.0-0.012) X10*3/uL Nucleated RBC % (auto) (0.0-0.2) /100WBC Neutrophils % (Manual) (45-73) % Band Neutrophils % (3-5) % Lymphocytes % (Manual) (20-40) % Monocytes % (Manual) (2-11) % Eosinophils % (Manual) (0-4) % Abs Neuts (Manual) (2.0-8.3) X10*3/uL Lymphocytes # (Manual) (1.2-4.9) X10*3/uL Monocytes # (Manual) (0.1-1.2) X10*3/uL Eosinophils # (Manual) (0.0-0.4) X10*3/uL Platelet Estimate (NORMAL) Plt Morphology Comment RBC Morphology PT 13.0 (10.0-13.1) SEC INR 1.1 (0.9-1.1) Sodium (135-145) mmol/L Potassium (3.3-5.1) mmol/L Chloride (96-108) mmol/L Carbon Dioxide (22-29) mmol/L Anion Gap (12-20) BUN (9-16) mg/dL Creatinine (0.5-1.4) mg/dL Estim Creat Clear Calc Estimated GFR Random Glucose (60-115) mg/dL Lactic Acid (0.5-2.0) mmol/L Calcium (8.4-10.2) mg/dL Total Bilirubin (0.0-1.0) mg/dL Direct Bilirubin (0.0-0.5) mg/dL AST (5-37) U/L ALT (0-40) U/L Alkaline Phosphatase (39-117) U/L Ammonia (13-55) umol/L Troponin I High Sens (<3.5-35.0) ng/L B-Natriuretic Peptide (<100) pg/mL Total Protein (6.5-8.0) g/dL Albumin (3.5-5.0) g/dL Urine Color [place] A Urine Appearance Turbid Urine pH 5.5 (5.0-9.0) Ur Specific [place] 1.020 (1.005-1.025) Urine Protein 100 (2+) H (Neg-Trace) mg/dL Urine Glucose (UA) 100 H (Negative) mg/dL Urine Ketones Negative (Negative) mg/dL Urine Blood Moderate (2+) H (Negative) Urine Nitrite Positive H (Negative) Ur Leukocyte Esterase Small (1+) H (Negative) Urine RBC 3-5 H (0-2) /HPF Urine WBC 6-10 H (0-5) /HPF Ur Squamous Epith Cells >20 (0-2) /HPF Urine Bacteria None Seen (None Seen) Hyaline Casts 3-5 (0-2) /LPF Granular Casts Present COVID-19 (NITO) (Negative) COVID-19 Clin Com Blood Type O Negative Antibody Screen NEGATIVE 05/17/22 Range/Units 22:48 WBC (4.8-10.8) X10*3/uL RBC (4.60-5.80) X10*6/uL Hgb (14.0-18.0) g/dl Hct (42.0-52.0) % MCV (80.0-98.0) fL MCH (27.0-33.0) pg MCHC (31.0-36.0) g/dl RDW (11.0-16.0) % Plt Count MPV (9.4-12.4) fL Immature Gran % (Auto) Neut % (Auto) Lymph % (Auto) [place] % (Auto) Eos % (Auto) Baso % (Auto) Lymph # (Auto) [place] # (Auto) Eos # (Auto) Baso # (Auto) Abs Immat Gran (auto) Absolute Neuts (auto) Absolute Nucleated RBC (0.0-0.012) X10*3/uL Nucleated RBC % (auto) (0.0-0.2) /100WBC Neutrophils % (Manual) (45-73) % Band Neutrophils % (3-5) % Lymphocytes % (Manual) (20-40) % Monocytes % (Manual) (2-11) % Eosinophils % (Manual) (0-4) % Abs Neuts (Manual) (2.0-8.3) X10*3/uL Lymphocytes # (Manual) (1.2-4.9) X10*3/uL Monocytes # (Manual) (0.1-1.2) X10*3/uL Eosinophils # (Manual) (0.0-0.4) X10*3/uL Platelet Estimate (NORMAL) Plt Morphology Comment RBC Morphology PT (10.0-13.1) SEC INR (0.9-1.1) Sodium (135-145) mmol/L Potassium (3.3-5.1) mmol/L Chloride (96-108) mmol/L Carbon Dioxide (22-29) mmol/L Anion Gap (12-20) BUN (9-16) mg/dL Creatinine (0.5-1.4) mg/dL Estim Creat Clear Calc Estimated GFR Random Glucose (60-115) mg/dL Lactic Acid (0.5-2.0) mmol/L Calcium (8.4-10.2) mg/dL Total Bilirubin (0.0-1.0) mg/dL Direct Bilirubin (0.0-0.5) mg/dL AST (5-37) U/L ALT (0-40) U/L Alkaline Phosphatase (39-117) U/L Ammonia (13-55) umol/L Troponin I High Sens 4.4 (<3.5-35.0) ng/L B-Natriuretic Peptide (<100) pg/mL Total Protein (6.5-8.0) g/dL Albumin (3.5-5.0) g/dL Urine Color Urine Appearance Urine pH (5.0-9.0) Ur Specific [place] (1.005-1.025) Urine Protein (Neg-Trace) mg/dL Urine Glucose (UA) (Negative) mg/dL Urine Ketones (Negative) mg/dL Urine Blood (Negative) Urine Nitrite (Negative) Ur Leukocyte Esterase (Negative) Urine RBC (0-2) /HPF Urine WBC (0-5) /HPF Ur Squamous Epith Cells (0-2) /HPF Urine Bacteria (None Seen) Hyaline Casts (0-2) /LPF Granular Casts COVID-19 (NITO) (Negative) COVID-19 Clin Com Blood Type Antibody Screen <Viktoriya Alvarado, CEMENTING MACHINE OPERATOR - Last Filed: 05/17/22 16:33> Lab Results 05/17/22 05/17/22 05/17/22 Range/Units 18:07 18:07 18:07 WBC 9.8 (4.8-10.8) X10*3/uL RBC 3.84 L (4.60-5.80) X10*6/uL Hgb 12.2 L (14.0-18.0) g/dl Hct 38.4 L (42.0-52.0) % MCV 100.0 H (80.0-98.0) fL MCH 31.8 (27.0-33.0) pg MCHC 31.8 (31.0-36.0) g/dl RDW 13.5 (11.0-16.0) % Plt Count TNP MPV 9.1 L (9.4-12.4) fL Immature Gran % (Auto) Cancelled Neut % (Auto) Cancelled Lymph % (Auto) Cancelled [place] % (Auto) Cancelled Eos % (Auto) Cancelled Baso % (Auto) Cancelled Lymph # (Auto) Cancelled [place] # (Auto) Cancelled Eos # (Auto) Cancelled Baso # (Auto) Cancelled Abs Immat Gran (auto) Cancelled Absolute Neuts (auto) Cancelled Absolute Nucleated RBC 0.000 (0.0-0.012) X10*3/uL Nucleated RBC % (auto) 0.0 (0.0-0.2) /100WBC Neutrophils % (Manual) 43 L (45-73) % Band Neutrophils % 49 H (3-5) % Lymphocytes % (Manual) 3 L (20-40) % Monocytes % (Manual) 4 (2-11) % Eosinophils % (Manual) 1 (0-4) % Abs Neuts (Manual) 9.0 H (2.0-8.3) X10*3/uL Lymphocytes # (Manual) 0.3 L (1.2-4.9) X10*3/uL Monocytes # (Manual) 0.4 (0.1-1.2) X10*3/uL Eosinophils # (Manual) 0.1 (0.0-0.4) X10*3/uL Platelet Estimate NORMAL (NORMAL) Plt Morphology Comment NORMAL RBC Morphology NORMAL PT (10.0-13.1) SEC INR (0.9-1.1) Sodium 141 (135-145) mmol/L Potassium 4.6 D (3.3-5.1) mmol/L Chloride 103 (96-108) mmol/L Carbon Dioxide 26 (22-29) mmol/L Anion Gap 17 (12-20) BUN 41 H (9-16) mg/dL Creatinine 3.18 H (0.5-1.4) mg/dL Estim Creat Clear Calc 22.7 Estimated GFR 19 Random Glucose 118 H (60-115) mg/dL Lactic Acid 1.2 (0.5-2.0) mmol/L Calcium 8.4 (8.4-10.2) mg/dL Total Bilirubin 1.0 (0.0-1.0) mg/dL Direct Bilirubin 0.6 H (0.0-0.5) mg/dL AST 18 (5-37) U/L ALT < 6 (0-40) U/L Alkaline Phosphatase 105 (39-117) U/L Ammonia (13-55) umol/L Troponin I High Sens (<3.5-35.0) ng/L B-Natriuretic Peptide (<100) pg/mL Total Protein 5.6 L (6.5-8.0) g/dL Albumin 3.2 L (3.5-5.0) g/dL Urine Color Urine Appearance Urine pH (5.0-9.0) Ur Specific [place] (1.005-1.025) Urine Protein (Neg-Trace) mg/dL Urine Glucose (UA) (Negative) mg/dL Urine Ketones (Negative) mg/dL Urine Blood (Negative) Urine Nitrite (Negative) Ur Leukocyte Esterase (Negative) Urine RBC (0-2) /HPF Urine WBC (0-5) /HPF Ur Squamous Epith Cells (0-2) /HPF Urine Bacteria (None Seen) Hyaline Casts (0-2) /LPF Granular Casts COVID-19 (NITO) (Negative) COVID-19 Clin Com Blood Type Antibody Screen 05/17/22 05/17/22 05/17/22 Range/Units 19:37 20:40 20:40 WBC (4.8-10.8) X10*3/uL RBC (4.60-5.80) X10*6/uL Hgb (14.0-18.0) g/dl Hct (42.0-52.0) % MCV (80.0-98.0) fL MCH (27.0-33.0) pg MCHC (31.0-36.0) g/dl RDW (11.0-16.0) % Plt Count MPV (9.4-12.4) fL Immature Gran % (Auto) Neut % (Auto) Lymph % (Auto) [place] % (Auto) Eos % (Auto) Baso % (Auto) Lymph # (Auto) [place] # (Auto) Eos # (Auto) Baso # (Auto) Abs Immat Gran (auto) Absolute Neuts (auto) Absolute Nucleated RBC (0.0-0.012) X10*3/uL Nucleated RBC % (auto) (0.0-0.2) /100WBC Neutrophils % (Manual) (45-73) % Band Neutrophils % (3-5) % Lymphocytes % (Manual) (20-40) % Monocytes % (Manual) (2-11) % Eosinophils % (Manual) (0-4) % Abs Neuts (Manual) (2.0-8.3) X10*3/uL Lymphocytes # (Manual) (1.2-4.9) X10*3/uL Monocytes # (Manual) (0.1-1.2) X10*3/uL Eosinophils # (Manual) (0.0-0.4) X10*3/uL Platelet Estimate (NORMAL) Plt Morphology Comment RBC Morphology PT (10.0-13.1) SEC INR (0.9-1.1) Sodium (135-145) mmol/L Potassium (3.3-5.1) mmol/L Chloride (96-108) mmol/L Carbon Dioxide (22-29) mmol/L Anion Gap (12-20) BUN (9-16) mg/dL Creatinine (0.5-1.4) mg/dL Estim Creat Clear Calc Estimated GFR Random Glucose (60-115) mg/dL Lactic Acid (0.5-2.0) mmol/L Calcium (8.4-10.2) mg/dL Total Bilirubin (0.0-1.0) mg/dL Direct Bilirubin (0.0-0.5) mg/dL AST (5-37) U/L ALT (0-40) U/L Alkaline Phosphatase (39-117) U/L Ammonia 37 (13-55) umol/L Troponin I High Sens (<3.5-35.0) ng/L B-Natriuretic Peptide 172 H (<100) pg/mL Total Protein (6.5-8.0) g/dL Albumin (3.5-5.0) g/dL Urine Color Urine Appearance Urine pH (5.0-9.0) Ur Specific [place] (1.005-1.025) Urine Protein (Neg-Trace) mg/dL Urine Glucose (UA) (Negative) mg/dL Urine Ketones (Negative) mg/dL Urine Blood (Negative) Urine Nitrite (Negative) Ur Leukocyte Esterase (Negative) Urine RBC (0-2) /HPF Urine WBC (0-5) /HPF Ur Squamous Epith Cells (0-2) /HPF Urine Bacteria (None Seen) Hyaline Casts (0-2) /LPF Granular Casts COVID-19 (NITO) Negative (Negative) COVID-19 Clin Com See Note Blood Type Antibody Screen 05/17/22 05/17/22 05/17/22 Range/Units 22:17 22:17 22:34 WBC (4.8-10.8) X10*3/uL RBC (4.60-5.80) X10*6/uL Hgb (14.0-18.0) g/dl Hct (42.0-52.0) % MCV (80.0-98.0) fL MCH (27.0-33.0) pg MCHC (31.0-36.0) g/dl RDW (11.0-16.0) % Plt Count MPV (9.4-12.4) fL Immature Gran % (Auto) Neut % (Auto) Lymph % (Auto) [place] % (Auto) Eos % (Auto) Baso % (Auto) Lymph # (Auto) [place] # (Auto) Eos # (Auto) Baso # (Auto) Abs Immat Gran (auto) Absolute Neuts (auto) Absolute Nucleated RBC (0.0-0.012) X10*3/uL Nucleated RBC % (auto) (0.0-0.2) /100WBC Neutrophils % (Manual) (45-73) % Band Neutrophils % (3-5) % Lymphocytes % (Manual) (20-40) % Monocytes % (Manual) (2-11) % Eosinophils % (Manual) (0-4) % Abs Neuts (Manual) (2.0-8.3) X10*3/uL Lymphocytes # (Manual) (1.2-4.9) X10*3/uL Monocytes # (Manual) (0.1-1.2) X10*3/uL Eosinophils # (Manual) (0.0-0.4) X10*3/uL Platelet Estimate (NORMAL) Plt Morphology Comment RBC Morphology PT 13.0 (10.0-13.1) SEC INR 1.1 (0.9-1.1) Sodium (135-145) mmol/L Potassium (3.3-5.1) mmol/L Chloride (96-108) mmol/L Carbon Dioxide (22-29) mmol/L Anion Gap (12-20) BUN (9-16) mg/dL Creatinine (0.5-1.4) mg/dL Estim Creat Clear Calc Estimated GFR Random Glucose (60-115) mg/dL Lactic Acid (0.5-2.0) mmol/L Calcium (8.4-10.2) mg/dL Total Bilirubin (0.0-1.0) mg/dL Direct Bilirubin (0.0-0.5) mg/dL AST (5-37) U/L ALT (0-40) U/L Alkaline Phosphatase (39-117) U/L Ammonia (13-55) umol/L Troponin I High Sens (<3.5-35.0) ng/L B-Natriuretic Peptide (<100) pg/mL Total Protein (6.5-8.0) g/dL Albumin (3.5-5.0) g/dL Urine Color [place] A Urine Appearance Turbid Urine pH 5.5 (5.0-9.0) Ur Specific [place] 1.020 (1.005-1.025) Urine Protein 100 (2+) H (Neg-Trace) mg/dL Urine Glucose (UA) 100 H (Negative) mg/dL Urine Ketones Negative (Negative) mg/dL Urine Blood Moderate (2+) H (Negative) Urine Nitrite Positive H (Negative) Ur Leukocyte Esterase Small (1+) H (Negative) Urine RBC 3-5 H (0-2) /HPF Urine WBC 6-10 H (0-5) /HPF Ur Squamous Epith Cells >20 (0-2) /HPF Urine Bacteria None Seen (None Seen) Hyaline Casts 3-5 (0-2) /LPF Granular Casts Present COVID-19 (NITO) (Negative) COVID-19 Clin Com Blood Type O Negative Antibody Screen NEGATIVE 05/17/22 Range/Units 22:48 WBC (4.8-10.8) X10*3/uL RBC (4.60-5.80) X10*6/uL Hgb (14.0-18.0) g/dl Hct (42.0-52.0) % MCV (80.0-98.0) fL MCH (27.0-33.0) pg MCHC (31.0-36.0) g/dl RDW (11.0-16.0) % Plt Count MPV (9.4-12.4) fL Immature Gran % (Auto) Neut % (Auto) Lymph % (Auto) [place] % (Auto) Eos % (Auto) Baso % (Auto) Lymph # (Auto) [place] # (Auto) Eos # (Auto) Baso # (Auto) Abs Immat Gran (auto) Absolute Neuts (auto) Absolute Nucleated RBC (0.0-0.012) X10*3/uL Nucleated RBC % (auto) (0.0-0.2) /100WBC Neutrophils % (Manual) (45-73) % Band Neutrophils % (3-5) % Lymphocytes % (Manual) (20-40) % Monocytes % (Manual) (2-11) % Eosinophils % (Manual) (0-4) % Abs Neuts (Manual) (2.0-8.3) X10*3/uL Lymphocytes # (Manual) (1.2-4.9) X10*3/uL Monocytes # (Manual) (0.1-1.2) X10*3/uL Eosinophils # (Manual) (0.0-0.4) X10*3/uL Platelet Estimate (NORMAL) Plt Morphology Comment RBC Morphology PT (10.0-13.1) SEC INR (0.9-1.1) Sodium (135-145) mmol/L Potassium (3.3-5.1) mmol/L Chloride (96-108) mmol/L Carbon Dioxide (22-29) mmol/L Anion Gap (12-20) BUN (9-16) mg/dL Creatinine (0.5-1.4) mg/dL Estim Creat Clear Calc Estimated GFR Random Glucose (60-115) mg/dL Lactic Acid (0.5-2.0) mmol/L Calcium (8.4-10.2) mg/dL Total Bilirubin (0.0-1.0) mg/dL Direct Bilirubin (0.0-0.5) mg/dL AST (5-37) U/L ALT (0-40) U/L Alkaline Phosphatase (39-117) U/L Ammonia (13-55) umol/L Troponin I High Sens 4.4 (<3.5-35.0) ng/L B-Natriuretic Peptide (<100) pg/mL Total Protein (6.5-8.0) g/dL Albumin (3.5-5.0) g/dL Urine Color Urine Appearance Urine pH (5.0-9.0) Ur Specific [place] (1.005-1.025) Urine Protein (Neg-Trace) mg/dL Urine Glucose (UA) (Negative) mg/dL Urine Ketones (Negative) mg/dL Urine Blood (Negative) Urine Nitrite (Negative) Ur Leukocyte Esterase (Negative) Urine RBC (0-2) /HPF Urine WBC (0-5) /HPF Ur Squamous Epith Cells (0-2) /HPF Urine Bacteria (None Seen) Hyaline Casts (0-2) /LPF Granular Casts COVID-19 (NITO) (Negative) COVID-19 Clin Com Blood Type Antibody Screen <RADHA Man - Last Filed: 05/17/22 23:35> Independent Interpretation I performed an independent interpretation of an: EKG and CT Scan (free air on abd ct and diverticulitis. Head unremarkable. ) <RADHA Man - Last Filed: 05/17/22 23:35> Radiology Impression Discussion of test interpretation with radiology: I have reviewed the radiologist's reading. <RADHA Man - Last Filed: 05/17/22 23:35> External Record Review External record reviewed: Inpatient record, Office record, Outpatient record, Prior outpatient radiology, Primary care record and Outside ED record <RADHA Man - Last Filed: 05/17/22 23:35> Chronic Conditions Patient?s care impacted by: Hypertension <RADHA Man - Last Filed: 05/17/22 23:35> Core Measures AMI core measures followed: Yes <RADHA Man - Last Filed: 05/17/22 23:35> Measure exclusions: not indicated <RADHA Man - Last Filed: 05/17/22 23:35> Critical Care Time Critical Care Time Critical Care Time: Yes <RADHA Man - Last Filed: 05/17/22 23:35> Total Critical Care Time: 55 <RADHA Man - Last Filed: 05/17/22 23:35> Attestation: I attest to this time spent taking care of the patient, obtaining history, physical, reviewing labs, imaging, speaking to my attending, speaking to specialist. <RADHA Man - Last Filed: 05/17/22 23:35> Discharge Plan Discharge Clinical Impression: Acute abdomen, Diverticulitis, LILIANA (acute kidney injury), Acute UTI <Viktoriya Alvarado NP - Last Filed: 05/17/22 16:33> Patient Disposition: Admitted As Inpatient <Viktoriya Alvarado NP - Last Filed: 05/17/22 16:33>
[2022-05-17 16:29] VITALS: BP 98/50; PULSE 78; RESP 20; TEMP 36.8; O2SAT 97; BMI 31.9
--- OUTSIDE RECORDS SUMMARY | 2022-05-17 17:57 | XMS_ITS ---
:1950 Author Name IrvinEnrrique Care Team Providers Name Role Phone Enrrique Bryan Unavailable Unavailable PROBLEMS Type Condition ICD9-CM Code [id number] Code Onset Condition SNO MED Code Dates Status Problem Plantar fascial M72.2 Active 1337 0002 fibromatosis ALLERGIES Substance Reaction Event Type Date Status Keflex itching, SOB Drug Allergy Mar, Active Lactose (Allergy) Severe Diarrhea Drug Allergy Mar, Active Vancomycin HCl Unknown Drug Allergy Mar, Active Bactrim Unknown Drug Allergy Mar, Active ENCOUNTERS Encounter Location Date Diagnosis [address] Mar, [place] [address] Mar, Zaria ntar fascial [place] fibromatosis M7 2.2 ; [address] Pain in left keri t M79.672 ; Calcan eal spur, left foot M77.32 ; Other myositis o f left foot M60.872 and Bursitis of left foot M77.[address] Oct, Non -pressure chronic [place] ulcer [place] [address] right foot limit ed to breakdown of ski n L97.[address] Sep, Non -pressure chronic [place] [address] right foot with fat layer exposed L9 7.512 [facility] [address] Sep, Ing rowing nail L60.0 [place] [address] [facility] [address] Jun, [place] [address] [facility] [address] [address] Jun, Abscess o f toe, right [place] L02.611 and Cell ulitis [address] of right toe L03 .[address] Jan, Abs cess of toe, right [place] L02.611 and Edilma lulitis [address] of right toe L03 .[address] Oct, Non -pressure chronic [place] ulcer [place] [address] right foot limit ed to breakdown of ski n L97.[address] Sep, Non -pressure chronic [place] [address] right foot with fat layer exposed L9 7.[address] Sep, Ing rowing nail L60.0 [place] [address] Sep, Ing rowing nail L60.0 [place] [address] Jul, Abs cess of toe, right [place] L02.611 [address] [facility] [address] Jul, [place] [address] Jul, [place] [address] [facility] [address] [address] Jul, Abscess o f toe, left [place] L02.612 and Cell ulitis [address] of left toe L03. [address] [address] Nov, [place] [address] Sep, [place] [address] [facility] [address] August, Abs cess of toe, right [place] L02.611 [address] [facility] [address] Oct, Par onychia 681.11 [place] [address] Jul, Par onych[place] 681.11 [facility] [place] [facility] To[facility] s 681.10 [address] [facility] Apr, Paronychia 681.1 [address] [place] [address] Celluit is - Toes 681.[address] Apr[place] [address] Mar, [facility] [place] [address] Mar, [facility] [place] [address] Mar, Par onychia 681.11 and [facility] [place] Cell[facility] - Toe s 681.10 [address] IMMUNIZATIONS Vaccine Route Administration Date Status COVID-19 [employer] Keith[employer]Aldo Unknown Mar 04, 2021 Administered Influenza Unknown Jan 16, 2017 Administered SOCIAL HISTORY Qualifiers Date Former Smoker 2000 REASON FOR REFERRAL Referring Provider First Name Enrrique Referring Provider Last Name Irvin Referred Organization [facility] Referred Provider Black Seymour Referred Address [address] [place] [phone] Referred Provider Specialty Podiatry Referring Provider First Name Black Referring Provider Last Name Dawn Referring Provider Specialty Podiatry Referring Provider email [email or web address] Referred Organization [facility] Referred Provider Black Seymour Referred Address [address] [place] [phone] Referred Provider Specialty Podiatry FUNCTIONAL STATUS PLAN OF CARE Activity Details Referral [address] [place] [address] [place], [address], [email or web address], Referral [address] [place] [address] [place], [address], [email or web address], [phone] Pending Test X ray : Foot, left 3V Future/Pending Procedure 07499- Debride <25 sq cm Future/Pending Procedure [id number] SKIN/TISSUE Future/Pending Procedure [id number] Future/Pending Procedure 63938 I&D ABSCESS- SIMPLE,SI NGLE Future/Pending Procedure 76605 I&D ABSCESS- SIMPLE,SI NGLE Future/Pending Procedure 67791- Debride <25 sq cm Future/Pending Procedure [id number]-ZMGVVNS SKIN/TISSUE Future/Pending Procedure [id number] Future/Pending Procedure 64478-Jeznezvs Plate Future/Pending Procedure [id number] I&D ABSCESS- SIMPLE,SI NGLE Future/Pending Procedure [id number] I&D ABSCESS- SIMPLE,SI NGLE Future/Pending Procedure [id number] I&D ABSCESS- SIMPLE,SI NGLE Future/Pending Procedure 01502 I&D ABSCESS- SIMPLE,SI NGLE Future/Pending Procedure [id number] I&D ABSCESS- SIMPLE,SI NGLE Future/Pending Procedure 36846 I&D ABSCESS- SIMPLE,SI NGLE Future/Pending Procedure 47763 I&D ABSCESS- SIMPLE,SI NGLE VITAL SIGNS Height [...] No Results REASON FOR VISIT Insurance Providers [facility] Health Member Patient Patient Patient Patient Patient Subscriber Subscriber Subscriber Group Insurance Plan Plan Plan Plan ID Relationship Address Phone Name Date of ID Name Date of No Type Insurance Insurance Insurance Coverage to Subscriber Address Phone Name Dates Formerly [facility] [phone] [facility] K[place] [id number] [facility] [address] [facility] [address] [facility] [address] [employer] [phone] [employer] self Kevan [id number] [address] [place] [address] Medicare National [phone] Medicare self Kevan [id number] [facility] [address] [employer] [address] [facility] [place] [address] MEDICAL (GENERAL) HISTORY Type Description Date Medical [...]
[2022-05-17 18:18] LABS: Hematocrit 38.4 % (42.0-52.0); Hemoglobin 12.2 g/dl (14.0-18.0); Mean Corpuscular HGB Conc 31.8 g/dl (31.0-36.0); Mean Corpuscular Hemoglobin 31.8 pg (27.0-33.0); Mean Platelet Volume 9.1 fL (9.4-12.4); Red Blood Count 3.84 X10*6/uL (4.60-5.80); Red Cell Distribution Width 13.5 % (11.0-16.0); White Blood Count 9.8 X10*3/uL (4.8-10.8)
[2022-05-17 18:39] LABS: Alanine Aminotransferase < 6 U/L (0-40); Albumin Level 3.2 g/dL (3.5-5.0); Alkaline Phosphatase 105 U/L (39-117); Anion Gap 17 (12-20); Aspartate Amino Transferase 18 U/L (5-37); Bilirubin Direct 0.6 mg/dL (0.0-0.5); Blood Urea Nitrogen 41 mg/dL (9-16); Calcium 8.4 mg/dL (8.4-10.2); Carbon Dioxide 26 mmol/L (22-29); Chloride 103 mmol/L (96-108); Creatinine Clr Calc Pharmacy 22.7; Estimated Glomerular Filt Rate 19; Glucose Random 118 mg/dL (60-115); Potassium 4.6 mmol/L (3.3-5.1); Sodium 141 mmol/L (135-145); Total Protein 5.6 g/dL (6.5-8.0)
[2022-05-17 18:43] LABS: Neutrophils Percent Manual 43 % (45-73)
[2022-05-17 18:44] LABS: Lactic Acid 1.2 mmol/L (0.5-2.0)
[2022-05-17 18:46] LABS: Band Neutrophils Percent 49 % (3-5); Eosinophils Absolute Manual 0.1 X10*3/uL (0.0-0.4); Eosinophils Percent Manual 1 % (0-4); Lymphocytes Absolute Manual 0.3 X10*3/uL (1.2-4.9); Lymphocytes Percent Manual 3 % (20-40); Monocytes Absolute Manual 0.4 X10*3/uL (0.1-1.2); Monocytes Percent Manual 4 % (2-11); Platelet Estimate NORMAL (NORMAL); Platelet Morphology Comment NORMAL; RBC Morphology NORMAL
[2022-05-17 19:49] VITALS: BP 93/51; PULSE 70; RESP 15; TEMP 37.1; O2SAT 92
--- NOTE | 2022-05-17 19:52 | PHA.MEDREC ---
Pharmacy Consult ? Medication Reconciliation Pharmacy has completed the medication reconciliation.
--- NOTE | 2022-05-17 19:53 | PC.NURSE ---
AOx3, vs taken, IV inserted. BP slightly low, as it has been today. Pt took lisinopril this morning. Pt sleepy, and reports being very drowsy today. Will continue to monitor
[2022-05-17 20:13] LABS: COVID-19 Test Negative (Negative); IDNOW Serial# 6674DD1D
[2022-05-17] MEDS: levoFLOXacin/D5W 750 MG/150 ML PIGGYBACK 100 MG IV (20:46)
[2022-05-17 21:01] VITALS: BP 108/57; PULSE 68; RESP 18
[2022-05-17 21:13] LABS: Ammonia 37 umol/L (13-55)
--- NOTE | 2022-05-17 21:39 | ECG_ITS ---
Test Reason : cp Blood Pressure : / mmHG Vent. Rate : 075 BPM Atrial Rate : 075 BPM P-R Int : 156 ms QRS Dur : 140 ms QT Int : 398 ms P-R-T Axes : 034 -11 011 degrees QTc Int : 444 ms Normal sinus rhythm Right bundle branch block Abnormal ECG When compared with ECG of 12-APR-2022 10:26, QT has shortened Referred By: Tiarra Lazo Electronically Signed By:Claude Novoa
[2022-05-17 22:38] LABS: INTERNATIONAL NORM RATIO 1.1 (0.9-1.1)
[2022-05-17 22:46] LABS: Appearance Urine Turbid; Color Urine Orange; Glucose Urine UA 100 mg/dL (Negative); Leukocyte Esterase Urine Small (1+) (Negative); Nitrite Urine Positive (Negative); PH 5.5 (5.0-9.0); UMIC TRIGGER UACC YES; Urine Blood Moderate (2+) (Negative); Urine Ketones Negative (Negative); Urine Protein 100 (2+) mg/dL (Neg-Trace)
[2022-05-17 22:49] LABS: Bacteria Urine None Seen (None Seen); Granular Casts Urine Present; Squamous Epithelial Cell Urine >20 /HPF (0-2); UACC Culture Trigger YES
[2022-05-17 22:54] VITALS: BP 150/76; PULSE 67; RESP 17; O2SAT 97
[2022-05-17 23:13] LABS: B Type Natriuretic Peptide 172 pg/mL (<100)
[2022-05-17 23:14] LABS: Troponin-I High Sensitivity 4.4 ng/L (<3.5-35.0)
[2022-05-17 23:23] VITALS: BP 130/59; PULSE 80; RESP 14; TEMP 36.9; O2SAT 93
--- NOTE | 2022-05-17 23:29 | PC.NURSE ---
Yuridia GARCIA aware pt received close to 3 L of IV fluids no urine output noted in cason which was inserted approximately 2 hours ago. 16 F Cason catheter. Plan pt to be BS. 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
--- NOTE | 2022-05-17 23:50 | P.HPGS_ITS ---
History of Present Illness History of Present Illness Date of Service: 05/17/22 Chief complaint: urinary issue, cant urinate Narrative: Kevan Rivas is a 71 year old male who has Parkinson's disease chronic back pain and takes opioids and has had significant C-spine fusions in the past. He comes in with confusion and abdominal pain. he was seen and was noted to be confused and more lethargic his blood pressure was low in the 80s when he initially presented. He was resuscitated with IV fluids and a CT scan of his head did not reveal any acute issues. His abdomen was quite tender diffusely specially in the lower left side an abdominal pelvic CT scan showed significant thickening of the sigmoid : With free air in this area along the lateral aspect of the colon and throughout the peritoneum. As a result surgical consultation was carried out. He was recently in the hospital treated with an pneumonia and has been doing better. He does have sleep apnea and snores. His says he has not been urinating very much in his creatinine is very elevated. He also has findings consistent with a urinary tract infection. He has a very elevated bandemia in the 40s but apparently he had at the time of his admissions for a pneumonia a bandemia as well at that time within normal white blood count. Review of Systems Constitutional: Constitutional: Reports as per HPI and Reports snoring Cardiovascular: Cardiovascular: Reports as per HPI and Reports no additional cardiovascular complaints Respiratory: Respiratory: Reports as per HPI and Reports snoring Comments: Sleep apnea Gastrointestinal: Gastrointestinal: Reports as per HPI and Reports abdominal pain Genitourinary: Comments: decreased urine output Musculoskeletal: Comments: neck and spine pain chronic PMFSH Past Medical History Medical History Bilateral primary osteoarthritis of knee BPH (benign prostatic hyperplasia) Chronic pain syndrome Failed back syndrome of cervical spine GERD (gastroesophageal reflux disease) Hard of hearing HTN (hypertension) Hypertensive heart disease Hypothyroidism PAC (premature atrial contraction) Parkinsons Restless leg syndrome Social History Social History Household Members: Spouse Household Members Other:: 1 Housing: House Do you presently have visiting nurse or other home services: No Alcohol intake: current Alcohol intake frequency: holidays/special occasions only Patient Tobacco Use Status: Former Tobacco user Tobacco use type: Cigarette Smoked in Last 30 Days: No e-Cigarette/Vaping Use: Former Use Second Hand Smoke Exposure: No Use of substances other than those prescribed or required for medical reasons: No Substance Use Type: Painkillers Advance Directives: No Advance Directives Information Provided: Yes Advance Directives Date on File: 01/19/20 service: No Current occupational status: retired Meds Allergies Allergy/AdvReac Type Severity Reaction Status Date / Time Sulfa (Sulfonamide Allergy Severe HIVES/DIFF. Verified 05/05/22 10:02 Antibiotics) BREATHING vancomycin [VANCOMYCIN] Allergy Severe SHORTNESS Verified 05/05/22 10:02 OF BREATH cephalexin [CEPHALEXIN] Allergy Intermediate SHORTNESS Verified 05/05/22 10:02 OF BREATH DAIRY PRODUCTS AdvReac Intermediate GI Uncoded 03/27/22 11:11 UPSET/DIARRHEA Active Medications: Current Medications Pharmacy Consult (Consult Rx Perform Med Rec) 1 each MISCELLANE ONCE PRN PRN Reason: Consult order Home Medications Medication Instructions Recorded Confirmed Last Taken Type carbidopa 25 mg-levodopa 100 mg 1 tab PO QID 01/21/20 05/17/22 05/17/22 History tablet diclofenac sodium 1 % topical gel 2 g topical QID PRN Inflammation 01/21/20 05/17/22 Unknown History finasteride 5 mg tablet 5 mg PO DAILY 01/21/20 05/17/22 05/17/22 History levothyroxine 50 mcg tablet 50 mcg PO DAILY@0600 01/21/20 05/17/22 05/17/22 History lidocaine 5 % topical patch 1 patch topical DAILY 01/21/20 05/17/22 05/17/22 History multivitamin (Daily Multi-Vitamin 1 tab PO DAILY 01/21/20 05/17/22 05/17/22 History tablet) tamsulosin 0.4 mg capsule 0.4 mg PO BID 01/21/20 05/17/22 05/17/22 History ondansetron HCl 4 mg tablet 4 mg PO DAILY PRN Nausea 09/15/20 05/17/22 Unknown History pantoprazole 40 mg tablet,delayed 40 mg PO DAILY@0630 09/15/20 05/17/22 05/17/22 History release ropinirole 3 mg tablet 12 mg PO BEDTIME 10/21/20 05/17/22 05/16/22 History fluticasone propionate 50 1 spray intranasal BID 10/27/20 05/17/22 05/17/22 History mcg/actuation nasal spray,suspension donepezil 10 mg tablet 10 mg PO BEDTIME 10/07/21 05/17/22 05/17/22 History duloxetine 60 mg capsule,delayed 60 mg PO DAILY 10/07/21 05/17/22 05/17/22 History release memantine 10 mg tablet 10 mg PO BID 10/07/21 05/17/22 05/17/22 History pregabalin 300 mg capsule 300 mg PO BID 10/07/21 05/17/22 05/17/22 History amantadine HCl 100 mg tablet 1 tab PO TID 04/12/22 05/17/22 05/17/22 History buspirone 10 mg tablet 1 tab PO BID PRN Anxiety 04/12/22 05/17/22 05/17/22 History cholecalciferol (vitamin D3) 50 50 mcg PO DAILY 04/12/22 05/17/22 05/17/22 History mcg (2,000 unit) tablet (Vitamin D3) ferrous sulfate 325 mg (65 mg 325 mg PO DAILY 04/12/22 05/17/22 05/17/22 History iron) tablet,delayed release lisinopril 20 mg tablet 1 tab PO DAILY 04/12/22 05/17/22 05/17/22 History ropinirole 3 mg tablet 6 mg PO DAILY@1200 04/12/22 05/17/22 05/17/22 History trazodone 100 mg tablet 3 tab PO BEDTIME PRN insomnia 04/12/22 05/17/22 05/16/22 History Physical Exam Vital Signs: Vital Signs: Last Vital Signs Temp 98.4 F 05/17/22 23:23 Pulse 80 05/17/22 23:23 Resp 14 05/17/22 23:23 BP 130/59 L 05/17/22 23:23 Pulse Ox 93 05/17/22 23:23 O2 Del Method 05/17/22 23:23 BMI result Body Mass Index 31.9 Const: General: cooperative and acute distress mild Orientation/consciousness: oriented to person, oriented to place and oriented to time HEENT: Ears: hearing grossly impaired Neck: Other: patient has a short neck is able to extend a little bit less X less ability to flex Resp: Effort & Inspection: normal respiratory effort and able to speak in complete sentences Auscultation: clear to auscultation bilaterally Cardio: Rate: regular rate Rhythm: regular rhythm GI: Other: abdomen is a little distended round he is diffusely tender specifically in the left lower mid and upper abdomen less so on the right side there is some guarding there is some rebound peritonitis active bowel sounds no masses are palpable Skin: General skin exam: no rashes or lesions noted Neuro: General: oriented to person, oriented to place and oriented to time Extrem: General: Yes normal to inspection Psych: Appearance: grossly normal Results Results Labs: Short CBC 05/17/22 Range/Units 18:07 WBC 9.8 (4.8-10.8) X10*3/uL Hgb 12.2 L (14.0-18.0) g/dl Hct 38.4 L (42.0-52.0) % Plt Count TNP BMP 05/17/22 18:07 Sodium 141 Potassium 4.6 D Chloride 103 Carbon Dioxide 26 BUN 41 H Creatinine 3.18 H Calcium 8.4 Liver Function 05/17/22 Range/Units 18:07 Total Bilirubin 1.0 (0.0-1.0) mg/dL Direct Bilirubin 0.6 H (0.0-0.5) mg/dL AST 18 (5-37) U/L ALT < 6 (0-40) U/L Alkaline Phosphatase 105 (39-117) U/L Albumin 3.2 L (3.5-5.0) g/dL Urine 05/17/22 Range/Units 22:34 Urine Color [place] A Urine Appearance Turbid Urine pH 5.5 (5.0-9.0) Ur Specific [place] 1.020 (1.005-1.025) Urine Protein 100 (2+) H (Neg-Trace) mg/dL Urine Glucose (UA) 100 H (Negative) mg/dL Abdomen CT scan report/results: report reviewed and image reviewed CT scan - pelvis: report reviewed and image reviewed Assessment and Plan (1) Diverticulitis: Status: Acute Plan patient is a 71-year-old male with Parkinson's disease hypothyroidism chronic pain issues due to cervical spine surgery now coming in with the last few days up abdominal pain not eating and drinking well and findings consistent with perforated diverticulitis with peritonitis. Patient is very tender on the left side as it elevated bandemia CT scan showing free air throughout the abdomen. Patient also has a significant amount of stool throughout his colon. Plan is to carryout exploratory laparotomy with most likely sigmoid resection and Milla procedure. Extensive discussion was had with the in the patient's and they understand that most likely he will have a colostomy which at this point may be temporary. In the meantime continue with resuscitation and regards to IV fluids antibiotics EKG etc.. Recent benefits were discussed with the patient including but not limited to bleeding infection bowel injury and other medical risks from anesthesia as well as going under including but not limited to cardiac and stroke and respiratory issues. He is being admitted resuscitated and ICU bed is available. He will go to the OR and will evaluate his disposition at the end of the case. The patient and his understand agree with the above Time Spent With Patient Time: Total time managing care of this patient today ____ minutes. Quality Stroke Does the patient have a stroke diagnosis?: No VTE Prior VTE?: No VTE Risk Level:: Surgical - high VTE Device Contraindication: N/A - Device Ordered VTE Drug Contraindication: N/A - Med Ordered Procedures Date of Service Date of Service: 05/18/22
[2022-05-18] VITALS (27 sets, daily range): BP systolic 94–138; BP diastolic 54–71; PULSE 81–98; RESP 10–24; TEMP 36.1–37.4; O2SAT 92–98
--- NOTE | 2022-05-18 00:14 | PC.NURSE ---
Pt noted to have snoring sound. Upper and lower lung lobes bilateral noted to diminished. Pt reporting is having a difficult time taking a deep breath.Pa aware. Plan order chest xray 1 view and apply oxygen to patient via nasal cannula. Intervention noted to improve oxygen saturation 97% on 2 liters via nasal cannula.
[2022-05-18] MEDS: ondansetron HCL 4 MG/2 ML VIAL IVPUSH (00:33)
[2022-05-18] MEDS: fentaNYL citrate/PF 100 MCG/2 ML VIAL 50 MCG IVPUSH ×3 (00:33→11:30)
--- NOTE | 2022-05-18 00:49 | PC.NURSE ---
Pt medicated per Mar.
--- NOTE | 2022-05-18 02:53 | PC.NURSE ---
RADHA mario turned of oxygen. PT de-stated to 89% room air. Pt placed back on 2 L via nasal cannula.
--- NOTE | 2022-05-18 03:08 | PC.NURSE ---
Pt PARRISH x4 labs obtained per order. Pt requested to lay bed flat r/t pt c/o 8/ posterior neck pain/headache.
--- NOTE | 2022-05-18 03:26 | PC.NURSE ---
Yuridia GARCIA held lasix r/t bp was low. Late entry.
[2022-05-18 03:31] LABS: B Type Natriuretic Peptide 170 pg/mL (<100)
--- NOTE | 2022-05-18 06:35 | PC.NURSE ---
Message via [employer] sent to surgeon Dr. Contreras r/t pt complaints of nausea and 7/10 abdominal pain.
--- NOTE | 2022-05-18 07:21 | P.PNGS_ITS ---
Subjective Subjective Date of Service: 05/18/22 Interval history: Patient with continued abdominal pain mainly in the left lower quadrant, improved after pain medication. Physical Exam Vital Signs: Vital Signs: Last Vital Signs Temp 98.1 F 05/18/22 06:23 Pulse 93 05/18/22 06:23 Resp 17 05/18/22 06:23 BP 94/58 L 05/18/22 06:23 Pulse Ox 96 05/18/22 06:23 O2 Del Method 05/18/22 06:23 O2 Flow Rate 2 05/18/22 06:23 BMI result Body Mass Index 31.9 Const: Other: short term memory loss General: in distress, confusion and ill appearing Nutritional Appearance: well nourished Orientation/consciousness: confusion Resp: Effort & Inspection: normal respiratory effort Auscultation: no crackles, no rales and no rhonchi GI: Inspection: Yes distended Palpation (GI): Firmness to palpation present (GI), Tenderness to palpation present (GI), Guarding due to palpation present (GI) and Rigid due to palpation Percussion: Yes dullness to percussion Auscultation: Absent bowel sounds Rectal Exam - Male: Yes deferred Abdomen image: 1. marked tenderness in the LLQ Skin: Other: warm and dry; no rash Neuro: General: confusion Extrem: General: Yes no clubbing, cyanosis or edema Objective Data Active Medications Pharmacy Consult (Consult Rx Perform Med Rec) 1 each MISCELLANE ONCE PRN PRN Reason: Consult order Labs 05/17/22 18:07 05/17/22 18:07 Labs: Laboratory Results - last 24 hr 05/17/22 05/17/22 05/17/22 18:07 18:07 18:07 MCV 100.0 H MCH 31.8 MCHC 31.8 RDW 13.5 Plt Count TNP MPV 9.1 L Immature Gran % (Auto) Cancelled Neut % (Auto) Cancelled Lymph % (Auto) Cancelled [place] % (Auto) Cancelled Eos % (Auto) Cancelled Baso % (Auto) Cancelled Lymph # (Auto) Cancelled [place] # (Auto) Cancelled Eos # (Auto) Cancelled Baso # (Auto) Cancelled Abs Immat Gran (auto) Cancelled Absolute Neuts (auto) Cancelled Absolute Nucleated RBC 0.000 Nucleated RBC % (auto) 0.0 Neutrophils % (Manual) 43 L Band Neutrophils % 49 H Lymphocytes % (Manual) 3 L Monocytes % (Manual) 4 Eosinophils % (Manual) 1 Abs Neuts (Manual) 9.0 H Lymphocytes # (Manual) 0.3 L Monocytes # (Manual) 0.4 Eosinophils # (Manual) 0.1 Platelet Estimate NORMAL Plt Morphology Comment NORMAL RBC Morphology NORMAL PT INR Anion Gap 17 Estim Creat Clear Calc 22.7 Estimated GFR 19 Random Glucose 118 H Lactic Acid 1.2 Calcium 8.4 Total Bilirubin 1.0 Direct Bilirubin 0.6 H AST 18 ALT < 6 Alkaline Phosphatase 105 Ammonia Troponin I High Sens B-Natriuretic Peptide Total Protein 5.6 L Albumin 3.2 L Urine Color Urine Appearance Urine pH Ur Specific [place] Urine Protein Urine Glucose (UA) Urine Ketones Urine Blood Urine Nitrite Ur Leukocyte Esterase Urine RBC Urine WBC Ur Squamous Epith Cells Urine Bacteria Hyaline Casts Granular Casts COVID-19 (NITO) COVID-19 Clin Com Blood Type Antibody Screen 05/17/22 05/17/22 05/17/22 19:37 20:40 20:40 MCV MCH MCHC RDW Plt Count MPV Immature Gran % (Auto) Neut % (Auto) Lymph % (Auto) [place] % (Auto) Eos % (Auto) Baso % (Auto) Lymph # (Auto) [place] # (Auto) Eos # (Auto) Baso # (Auto) Abs Immat Gran (auto) Absolute Neuts (auto) Absolute Nucleated RBC Nucleated RBC % (auto) Neutrophils % (Manual) Band Neutrophils % Lymphocytes % (Manual) Monocytes % (Manual) Eosinophils % (Manual) Abs Neuts (Manual) Lymphocytes # (Manual) Monocytes # (Manual) Eosinophils # (Manual) Platelet Estimate Plt Morphology Comment RBC Morphology PT INR Anion Gap Estim Creat Clear Calc Estimated GFR Random Glucose Lactic Acid Calcium Total Bilirubin Direct Bilirubin AST ALT Alkaline Phosphatase Ammonia 37 Troponin I High Sens B-Natriuretic Peptide 172 H Total Protein Albumin Urine Color Urine Appearance Urine pH Ur Specific [place] Urine Protein Urine Glucose (UA) Urine Ketones Urine Blood Urine Nitrite Ur Leukocyte Esterase Urine RBC Urine WBC Ur Squamous Epith Cells Urine Bacteria Hyaline Casts Granular Casts COVID-19 (NITO) Negative COVID-19 Clin Com See Note Blood Type Antibody Screen 05/17/22 05/17/22 05/17/22 22:17 22:17 22:34 MCV MCH MCHC RDW Plt Count MPV Immature Gran % (Auto) Neut % (Auto) Lymph % (Auto) [place] % (Auto) Eos % (Auto) Baso % (Auto) Lymph # (Auto) [place] # (Auto) Eos # (Auto) Baso # (Auto) Abs Immat Gran (auto) Absolute Neuts (auto) Absolute Nucleated RBC Nucleated RBC % (auto) Neutrophils % (Manual) Band Neutrophils % Lymphocytes % (Manual) Monocytes % (Manual) Eosinophils % (Manual) Abs Neuts (Manual) Lymphocytes # (Manual) Monocytes # (Manual) Eosinophils # (Manual) Platelet Estimate Plt Morphology Comment RBC Morphology PT 13.0 INR 1.1 Anion Gap Estim Creat Clear Calc Estimated GFR Random Glucose Lactic Acid Calcium Total Bilirubin Direct Bilirubin AST ALT Alkaline Phosphatase Ammonia Troponin I High Sens B-Natriuretic Peptide Total Protein Albumin Urine Color [place] A Urine Appearance Turbid Urine pH 5.5 Ur Specific [place] 1.020 Urine Protein 100 (2+) H Urine Glucose (UA) 100 H Urine Ketones Negative Urine Blood Moderate (2+) H Urine Nitrite Positive H Ur Leukocyte Esterase Small (1+) H Urine RBC 3-5 H Urine WBC 6-10 H Ur Squamous Epith Cells >20 Urine Bacteria None Seen Hyaline Casts 3-5 Granular Casts Present COVID-19 (NITO) COVID-19 Clin Com Blood Type O Negative Antibody Screen NEGATIVE 05/17/22 05/18/22 22:48 03:03 MCV MCH MCHC RDW Plt Count MPV Immature Gran % (Auto) Neut % (Auto) Lymph % (Auto) [place] % (Auto) Eos % (Auto) Baso % (Auto) Lymph # (Auto) [place] # (Auto) Eos # (Auto) Baso # (Auto) Abs Immat Gran (auto) Absolute Neuts (auto) Absolute Nucleated RBC Nucleated RBC % (auto) Neutrophils % (Manual) Band Neutrophils % Lymphocytes % (Manual) Monocytes % (Manual) Eosinophils % (Manual) Abs Neuts (Manual) Lymphocytes # (Manual) Monocytes # (Manual) Eosinophils # (Manual) Platelet Estimate Plt Morphology Comment RBC Morphology PT INR Anion Gap Estim Creat Clear Calc Estimated GFR Random Glucose Lactic Acid Calcium Total Bilirubin Direct Bilirubin AST ALT Alkaline Phosphatase Ammonia Troponin I High Sens 4.4 B-Natriuretic Peptide 170 H Total Protein Albumin Urine Color Urine Appearance Urine pH Ur Specific [place] Urine Protein Urine Glucose (UA) Urine Ketones Urine Blood Urine Nitrite Ur Leukocyte Esterase Urine RBC Urine WBC Ur Squamous Epith Cells Urine Bacteria Hyaline Casts Granular Casts COVID-19 (NITO) COVID-19 Clin Com Blood Type Antibody Screen Procedures Date of Service Date of Service: 05/18/22 Progress Note: A&P Assessment and plan (1) Acute abdomen: Status: Acute (2) Perforated diverticulum of large intestine: Status: Acute (3) Diverticulitis: Status: Acute (4) SIRS (systemic inflammatory response syndrome): Status: Acute Plan 71-year-old male patient presenting with acute abdominal pain found a perfora yelitza sigmoid diverticulitis with free air but no apparent abscess. Patient is diffusely tender but mostly in the left lower quadrant. Recommend exploratory laparotomy, sigmoid colectomy, Milla procedure reviewed the procedure, risks, and alternatives with the patient and his (Berenice Ventura). They consent to the Exploratory Laparotomy, Sigmoid colectomy, Colostomy (Milla's Procedure). He will be added on to the OR schedule for as soon as possible. Time Spent With Patient Time: Total time managing care of this patient today ____ minutes. Quality Stroke Does the patient have a stroke diagnosis?: No VTE Prior VTE?: No VTE Risk Level:: Surgical - high VTE Device Contraindication: N/A - Device Ordered VTE Drug Contraindication: N/A - Med Ordered
--- NOTE | 2022-05-18 07:46 | HO.ANESPROP2 ---
[facility] Active Problems Active Problems: All Active Problems (Updated 05/18/22 @ 07:28 by Aric Mcneill MD) SIRS (systemic inflammatory response syndrome) (Acute) Perforated diverticulum of large intestine (Acute) Acute abdomen (Acute) Diverticulitis (Acute) LILIANA (acute kidney injury) (Acute) Acute UTI (Acute) Opioid contract exists (Acute) Acute respiratory failure with hypoxia (Acute) Anaerobic bacteremia (Acute) Fusobacterium infection (Acute) Bandemia (Acute) Pneumonia (Acute) Right bundle branch block (RBBB) determined by electrocardiography (Acute) Hypertensive heart disease (Acute) PAC (premature atrial contraction) (Acute) BPH (benign prostatic hyperplasia) (Acute) Hypothyroidism (Acute) Hard of hearing (Acute) GERD (gastroesophageal reflux disease) (Acute) Restless leg syndrome (Acute) Bilateral primary osteoarthritis of knee (Acute) Chronic pain syndrome (Acute) Failed back syndrome of cervical spine (Acute) Past Medical History Medical History Bilateral primary osteoarthritis of knee BPH (benign prostatic hyperplasia) Chronic pain syndrome Failed back syndrome of cervical spine GERD (gastroesophageal reflux disease) Hard of hearing HTN (hypertension) Hypertensive heart disease Hypothyroidism PAC (premature atrial contraction) Parkinsons Restless leg syndrome Family History Family history of problems with anesthesia: No Surgical History History of Problems with Anesthesia: No Social History Social History Household Members: Spouse Household Members Other:: 1 Housing: House Do you presently have visiting nurse or other home services: No Alcohol intake: current Alcohol intake frequency: holidays/special occasions only Patient Tobacco Use Status: Former Tobacco user Tobacco use type: Cigarette Smoked in Last 30 Days: No e-Cigarette/Vaping Use: Former Use Second Hand Smoke Exposure: No Use of substances other than those prescribed or required for medical reasons: No Substance Use Type: Painkillers Are you DNR?: No Advance Directives: No Advance Directives Information Provided: Yes Advance Directives on File: No Advance Directives Date on File: 01/19/20 service: No Current occupational status: retired Meds Allergies Allergy/AdvReac Type Severity Reaction Status Date / Time Sulfa (Sulfonamide Allergy Severe HIVES/DIFF. Verified 05/05/22 10:02 Antibiotics) BREATHING vancomycin [VANCOMYCIN] Allergy Severe SHORTNESS Verified 05/05/22 10:02 OF BREATH cephalexin [CEPHALEXIN] Allergy Intermediate SHORTNESS Verified 05/05/22 10:02 OF BREATH DAIRY PRODUCTS AdvReac Intermediate GI Uncoded 03/27/22 11:11 UPSET/DIARRHEA Active Medications: Current Medications Pharmacy Consult (Consult Rx Perform Med Rec) 1 each MISCELLANE ONCE PRN PRN Reason: Consult order Home Medications Medication Instructions Recorded Confirmed Last Taken Type carbidopa 25 mg-levodopa 100 mg 1 tab PO QID 01/21/20 05/17/22 05/17/22 History tablet diclofenac sodium 1 % topical gel 2 g topical QID PRN Inflammation 01/21/20 05/17/22 Unknown History finasteride 5 mg tablet 5 mg PO DAILY 01/21/20 05/17/22 05/17/22 History levothyroxine 50 mcg tablet 50 mcg PO DAILY@0600 01/21/20 05/17/22 05/17/22 History lidocaine 5 % topical patch 1 patch topical DAILY 01/21/20 05/17/22 05/17/22 History multivitamin (Daily Multi-Vitamin 1 tab PO DAILY 01/21/20 05/17/22 05/17/22 History tablet) tamsulosin 0.4 mg capsule 0.4 mg PO BID 01/21/20 05/17/22 05/17/22 History ondansetron HCl 4 mg tablet 4 mg PO DAILY PRN Nausea 09/15/20 05/17/22 Unknown History pantoprazole 40 mg tablet,delayed 40 mg PO DAILY@0630 09/15/20 05/17/22 05/17/22 History release ropinirole 3 mg tablet 12 mg PO BEDTIME 10/21/20 05/17/22 05/16/22 History fluticasone propionate 50 1 spray intranasal BID 10/27/20 05/17/22 05/17/22 History mcg/actuation nasal spray,suspension donepezil 10 mg tablet 10 mg PO BEDTIME 10/07/21 05/17/22 05/17/22 History duloxetine 60 mg capsule,delayed 60 mg PO DAILY 10/07/21 05/17/22 05/17/22 History release memantine 10 mg tablet 10 mg PO BID 10/07/21 05/17/22 05/17/22 History pregabalin 300 mg capsule 300 mg PO BID 10/07/21 05/17/22 05/17/22 History amantadine HCl 100 mg tablet 1 tab PO TID 04/12/22 05/17/22 05/17/22 History buspirone 10 mg tablet 1 tab PO BID PRN Anxiety 04/12/22 05/17/22 05/17/22 History cholecalciferol (vitamin D3) 50 50 mcg PO DAILY 04/12/22 05/17/22 05/17/22 History mcg (2,000 unit) tablet (Vitamin D3) ferrous sulfate 325 mg (65 mg 325 mg PO DAILY 04/12/22 05/17/22 05/17/22 History iron) tablet,delayed release lisinopril 20 mg tablet 1 tab PO DAILY 04/12/22 05/17/22 05/17/22 History ropinirole 3 mg tablet 6 mg PO DAILY@1200 04/12/22 05/17/22 05/17/22 History trazodone 100 mg tablet 3 tab PO BEDTIME PRN insomnia 04/12/22 05/17/22 05/16/22 History Exam Exam Date and Time: May 18, 2022 0746 Height,Weight and Vital Signs: Height 5 ft 7 in Weight 92.533 kg Last Vital Signs Temp 98.9 F 05/18/22 07:42 Pulse 96 05/18/22 07:42 Resp 18 05/18/22 07:42 BP 123/58 L 05/18/22 07:42 Pulse Ox 95 05/18/22 07:42 O2 Del Method 05/18/22 07:42 O2 Flow Rate 1 05/18/22 07:42 Pertinent Lab Results Pertinent Lab Results: Laboratory Tests 05/17/22 05/17/22 05/17/22 18:07 18:07 18:07 WBC 9.8 RBC 3.84 L Hgb 12.2 L Hct 38.4 L MCV 100.0 H MCH 31.8 MCHC 31.8 RDW 13.5 Plt Count TNP MPV 9.1 L Immature Gran % (Auto) Cancelled Neut % (Auto) Cancelled Lymph % (Auto) Cancelled [place] % (Auto) Cancelled Eos % (Auto) Cancelled Baso % (Auto) Cancelled Lymph # (Auto) Cancelled [place] # (Auto) Cancelled Eos # (Auto) Cancelled Baso # (Auto) Cancelled Abs Immat Gran (auto) Cancelled Absolute Neuts (auto) Cancelled Absolute Nucleated RBC 0.000 Nucleated RBC % (auto) 0.0 Neutrophils % (Manual) 43 L Band Neutrophils % 49 H Lymphocytes % (Manual) 3 L Monocytes % (Manual) 4 Eosinophils % (Manual) 1 Abs Neuts (Manual) 9.0 H Lymphocytes # (Manual) 0.3 L Monocytes # (Manual) 0.4 Eosinophils # (Manual) 0.1 Platelet Estimate NORMAL Plt Morphology Comment NORMAL RBC Morphology NORMAL PT INR Sodium 141 Potassium 4.6 D Chloride 103 Carbon Dioxide 26 Anion Gap 17 BUN 41 H Creatinine 3.18 H Estim Creat Clear Calc 22.7 Estimated GFR 19 Random Glucose 118 H Lactic Acid 1.2 Calcium 8.4 Total Bilirubin 1.0 Direct Bilirubin 0.6 H AST 18 ALT < 6 Alkaline Phosphatase 105 Ammonia Troponin I High Sens B-Natriuretic Peptide Total Protein 5.6 L Albumin 3.2 L Urine Color Urine Appearance Urine pH Ur Specific [place] Urine Protein Urine Glucose (UA) Urine Ketones Urine Blood Urine Nitrite Ur Leukocyte Esterase Urine RBC Urine WBC Ur Squamous Epith Cells Urine Bacteria Hyaline Casts Granular Casts COVID-19 (NITO) COVID-19 Clin Com Blood Type Antibody Screen 05/17/22 05/17/22 05/17/22 19:37 20:40 20:40 WBC RBC Hgb Hct MCV MCH MCHC RDW Plt Count MPV Immature Gran % (Auto) Neut % (Auto) Lymph % (Auto) [place] % (Auto) Eos % (Auto) Baso % (Auto) Lymph # (Auto) [place] # (Auto) Eos # (Auto) Baso # (Auto) Abs Immat Gran (auto) Absolute Neuts (auto) Absolute Nucleated RBC Nucleated RBC % (auto) Neutrophils % (Manual) Band Neutrophils % Lymphocytes % (Manual) Monocytes % (Manual) Eosinophils % (Manual) Abs Neuts (Manual) Lymphocytes # (Manual) Monocytes # (Manual) Eosinophils # (Manual) Platelet Estimate Plt Morphology Comment RBC Morphology PT INR Sodium Potassium Chloride Carbon Dioxide Anion Gap BUN Creatinine Estim Creat Clear Calc Estimated GFR Random Glucose Lactic Acid Calcium Total Bilirubin Direct Bilirubin AST ALT Alkaline Phosphatase Ammonia 37 Troponin I High Sens B-Natriuretic Peptide 172 H Total Protein Albumin Urine Color Urine Appearance Urine pH Ur Specific [place] Urine Protein Urine Glucose (UA) Urine Ketones Urine Blood Urine Nitrite Ur Leukocyte Esterase Urine RBC Urine WBC Ur Squamous Epith Cells Urine Bacteria Hyaline Casts Granular Casts COVID-19 (NITO) Negative COVID-19 Clin Com See Note Blood Type Antibody Screen 05/17/22 05/17/22 05/17/22 22:17 22:17 22:34 WBC RBC Hgb Hct MCV MCH MCHC RDW Plt Count MPV Immature Gran % (Auto) Neut % (Auto) Lymph % (Auto) [place] % (Auto) Eos % (Auto) Baso % (Auto) Lymph # (Auto) [place] # (Auto) Eos # (Auto) Baso # (Auto) Abs Immat Gran (auto) Absolute Neuts (auto) Absolute Nucleated RBC Nucleated RBC % (auto) Neutrophils % (Manual) Band Neutrophils % Lymphocytes % (Manual) Monocytes % (Manual) Eosinophils % (Manual) Abs Neuts (Manual) Lymphocytes # (Manual) Monocytes # (Manual) Eosinophils # (Manual) Platelet Estimate Plt Morphology Comment RBC Morphology PT 13.0 INR 1.1 Sodium Potassium Chloride Carbon Dioxide Anion Gap BUN Creatinine Estim Creat Clear Calc Estimated GFR Random Glucose Lactic Acid Calcium Total Bilirubin Direct Bilirubin AST ALT Alkaline Phosphatase Ammonia Troponin I High Sens B-Natriuretic Peptide Total Protein Albumin Urine Color [place] A Urine Appearance Turbid Urine pH 5.5 Ur Specific [place] 1.020 Urine Protein 100 (2+) H Urine Glucose (UA) 100 H Urine Ketones Negative Urine Blood Moderate (2+) H Urine Nitrite Positive H Ur Leukocyte Esterase Small (1+) H Urine RBC 3-5 H Urine WBC 6-10 H Ur Squamous Epith Cells >20 Urine Bacteria None Seen Hyaline Casts 3-5 Granular Casts Present COVID-19 (NITO) COVID-19 Clin Com Blood Type O Negative Antibody Screen NEGATIVE 05/17/22 05/18/22 22:48 03:03 WBC RBC Hgb Hct MCV MCH MCHC RDW Plt Count MPV Immature Gran % (Auto) Neut % (Auto) Lymph % (Auto) [place] % (Auto) Eos % (Auto) Baso % (Auto) Lymph # (Auto) [place] # (Auto) Eos # (Auto) Baso # (Auto) Abs Immat Gran (auto) Absolute Neuts (auto) Absolute Nucleated RBC Nucleated RBC % (auto) Neutrophils % (Manual) Band Neutrophils % Lymphocytes % (Manual) Monocytes % (Manual) Eosinophils % (Manual) Abs Neuts (Manual) Lymphocytes # (Manual) Monocytes # (Manual) Eosinophils # (Manual) Platelet Estimate Plt Morphology Comment RBC Morphology PT INR Sodium Potassium Chloride Carbon Dioxide Anion Gap BUN Creatinine Estim Creat Clear Calc Estimated GFR Random Glucose Lactic Acid Calcium Total Bilirubin Direct Bilirubin AST ALT Alkaline Phosphatase Ammonia Troponin I High Sens 4.4 B-Natriuretic Peptide 170 H Total Protein Albumin Urine Color Urine Appearance Urine pH Ur Specific [place] Urine Protein Urine Glucose (UA) Urine Ketones Urine Blood Urine Nitrite Ur Leukocyte Esterase Urine RBC Urine WBC Ur Squamous Epith Cells Urine Bacteria Hyaline Casts Granular Casts COVID-19 (NITO) COVID-19 Clin Com Blood Type Antibody Screen Airway Mallampati Class: III TM Dist: >3cm Neck ROM: Limited Assessment and Plan Assessment Anesthesia Assessment: Anesthesia Plan Discussed and Chart Reviewed Final Anesthetic Review Family History of Problems with Anesthesia: No History of Problems with Anesthesia: No NPO: Yes ASA Class: III and Emergency Final Preanesthetic Review: No Changes in Pt Med Stat, Meds/Allgs Chart Reviewed, Consent Obtained/Reviewed and Anes Risks/Benef Reviewed Patient Risk: Intermediate Procedure Risk: High Anesthetic Plan Anesthetic Plan: GA Disposition: Standard PACU
[2022-05-18] MEDS: Lactated Ringers 1,000 ML 100 ML IVCONT (07:58)
--- NOTE | 2022-05-18 10:46 | P.OP_ITS ---
Operative Note Operative Note Date of Service: 05/18/22 Narrative: Preoperative diagnosis: Perforated sigmoid diverticulitis Postoperative diagnosis: Perforated sigmoid diverticulitis with multiple pelvic and interloop abscesses Procedure: Exploratory laparotomy, Milla procedure Surgeon: Aric Mcneill MD Needle Punch Machine Operator: Keli Zelaya PA-C Anesthesia: General endotracheal Indications for procedure: 71-year-old male patient presenting with complaints of abdominal pain in the left lower quadrant found to be hypotensive and tachycardic. WBC was normal however CT abdomen and pelvis revealed free air with evidence of diverticulitis and colonic thickening Operative findings: Perforated sigmoid diverticulitis with feculent peritonitis, multiple abscess collections, phlegmon involving mid sigmoid colon with a clear perforation on the anti mesenteric border. Specimen: Sigmoid colon, wound culture of abscess cavity Estimated blood loss: 250 mls Complications: None Procedure details: Patient was brought to the OR placed in a supine position. After administering general anesthesia the patient's abdomen was prepped with ChloraPrep and draped in a sterile fashion. A Lerner catheter was previously placed in the emergency department. OG tube was placed by anesthesia. A surgical time-out was called the consent confirmed. Patient received preoperative antibiotics and Venodyne boots were in place. Local anesthesia consisting of 0.5% Sensorcaine with epinephrine was infiltrated in the midline. A generous midline incision was then made with a scalpel carried out through subcutaneous tissue through the linea alba into the peritoneal cavity. A Bookwalter retractor was placed in the sigmoid colon identified. The sigmoid colon was mobilized from the abdominal sidewall. Upon mobilization several abscess collections were identified. These were drained and a culture obtained. There was evidence of feculent peritonitis throughout the abdominal cavity including purulence collections over the dome of the liver and in the left upper quadrant. These were drained using suction. Sigmoid colon was continued to be mobilized and this was continued proximally along the white line of Toldt to mobilize the left colon. Dissection was then continued down towards the pelvis. Do a severe inflammatory changes involving the mid sigmoid colon which was firmly attached to the bladder. This was gently mobilized using electrocautery and LigaSure dissection. Once the sigmoid colon was mobilized a proximal segment was identified which had normal consistency. The mesentery was divided below the segment of bowel and a ALIYA stapler used to divide the bowel at this level. LigaSure was then used to divide the mesentery of the sigmoid colon distally. Dissection was continued down past the area of perforation to an area of relatively normal distal sigmoid colon. The mesentery was divided up to this level. A curved Endo-ALIYA stapler was then used to divide the bowel at this level. The specimen was passed off the table and sent to pathology for further examination. The distal bowel segment was then secured to the bladder wall using 2 interrupted 3-0 Prolene sutures. This was to rome the bowel for eventual closure of colostomy. The abdomen was then thoroughly irrigated with Irrasept followed by 1 L of saline solution. The irrigation was completely evacuated. The proximal bowel was mobilized further along the white line of Toldt and mesentery divided to allow creation of a left lower quadrant colostomy. A circular skin incision was made in left lower quadrant carried out through subcutaneous tissue and up to the anterior rectus sheath. A cruciate incision was made in the anterior rectus sheath. Jeni clamps were then used to divide the rectus muscle and entered into the abdominal cavity. Three finger dilation was then performed and the colostomy segment brought up through the colostomy incision. This was left in place with Sia clamps. Attention was then directed to the midline incision which was closed using a r unning 0 PDS suture. Zenrelef was then applied over the fascial surface. Subcutaneous tissue and dermis were then reapproximated using interrupted 3-0 Polysorb sutures. Skin was closed using skin chris. Ostomy was matured using interrupted 3-0 Polysorb sutures. Sterile dressings were then applied an ostomy appliance applied to the colostomy. The patient tolerated the procedure well and was transferred to PACU in stable condition. Sponge, instrument, and needle counts were reported as correct.
[2022-05-18] MEDS: HYDROmorphone HCl 0.5 MG/0.5 ML SYRINGE 0.25 MG IVPUSH (13:30)
[2022-05-18] MEDS: Dextrose 5 % and Lactated Ring 1,000 ML 125 ML IVCONT (15:43)
[2022-05-18] MEDS: Acetaminophen 1,000 MG/100 ML PIGGYBACK 400 MG IV ×2 (15:44→20:49)
[2022-05-18] MEDS: metroNIDAZOLE/NS 500 MG/100 ML PIGGYBACK 100 MG IV ×3 (15:47→21:39)
[2022-05-18] MEDS: 0.9 % Sodium Chloride Flush 3 ML SYRINGE IVFLUSH ×2 (15:55→21:00)
--- NOTE | 2022-05-18 16:47 | PM.IMCN ---
History of Present Illness Data of Consult Service Date: 05/18/22 Requesting physician: Aric Mcneill Primary Care Provider: Enrrique Bryan MD HPI Reason for consult: perf divertic, SIRS, med management This is a 71-year-old male with multiple medical issues who presented to the emergency department yesterday with confusion and abdominal pain found to have imaging noted to have free air. He was admitted to the surgical service. Today he underwent exploratory laparotomy/Milla procedure secondary to perforated sigmoid diverticulitis with multiple pelvic abscesses. He initially began having abdominal pain on Sunday afternoon which progressively worsened until yesterday when he presented to the emergency department his reported decreased p.o. intake and decreased urine output. Initial lab work revelaed LILIANA with creatinine of 3.18. The hospitalist service was asked to see him in consultation for assistance in medical management. He was seen and evaluated this afternoon and history was obtained with assistance from his at the bedside. He was noted to be sleeping upon entering the room, woke up after sternal rub and immediately recognized his and asked her for a hug. He was able to follow commands and was answering questions appropriately but did fall back to sleep quickly. He reported feeling woozy and weird but did not report significant abdominal discomfort. Unable to obtain full ROS as the patient is sleepy but he denies any difficulty breathing or abdominal discomfort. [facility] Medical History Bilateral primary osteoarthritis of knee BPH (benign prostatic hyperplasia) Chronic pain syndrome Failed back syndrome of cervical spine GERD (gastroesophageal reflux disease) Hard of hearing HTN (hypertension) Hypertensive heart disease Hypothyroidism PAC (premature atrial contraction) Parkinsons Restless leg syndrome Pertinent family history: no family history of Parkinson's disease Social History Household Members: Spouse Household Members Other:: 1 Housing: House Do you presently have visiting nurse or other home services: No Alcohol intake: current Alcohol intake frequency: holidays/special occasions only Patient Tobacco Use Status: Former Tobacco user Tobacco use type: Cigarette e-Cigarette/Vaping Use: Former Use Second Hand Smoke Exposure: No Substance Use Type: Marijuana and Prescription Drugs Advance Directives Date on File: 01/19/20 service: No Current occupational status: retired Meds Allergies Allergy/AdvReac Type Severity Reaction Status Date / Time Sulfa (Sulfonamide Allergy Severe HIVES/DIFF. Verified 05/05/22 10:02 Antibiotics) BREATHING vancomycin [VANCOMYCIN] Allergy Severe SHORTNESS Verified 05/05/22 10:02 OF BREATH cephalexin [CEPHALEXIN] Allergy Intermediate SHORTNESS Verified 05/05/22 10:02 OF BREATH DAIRY PRODUCTS AdvReac Intermediate GI Uncoded 03/27/22 11:11 UPSET/DIARRHEA Active Medications: Current Medications Amantadine HCl (Amantadine Hcl 100 Mg Capsule) 100 mg PO TID [facility] Baclofen (Baclofen 20 Mg Tablet) 20 mg PO BID PRN PRN Reason: pain (scale score 4-6) Buspirone HCl (Buspirone Hcl 10 Mg Tablet) 10 mg PO BID PRN PRN Reason: Anxiety Carbidopa/Levodopa (Carbidopa/Levodopa 25/100 Tablet) 1 tab PO QID [facility] Diltiazem HCl (Diltiazem Hcl Cd 240 Mg Cap.Er.Deg) 240 mg PO DAILY [facility]; Protocol Donepezil HCl (Donepezil Hcl 10 Mg Tablet) 10 mg PO BEDTIME [facility] Duloxetine HCl (Duloxetine Hcl 60 Mg Capsule.Dr) 60 mg PO DAILY [facility] Finasteride (Finasteride 5 Mg Tablet) 5 mg PO DAILY [facility] Fluticasone Propionate (Fluticasone Propionate Nasal 16 Gm [place]) 1 spray NOSTRIL-B BID [facility] Hydromorphone HCl (Hydromorphone Hcl 0.5 Mg/0.5 Ml Syringe) 0.25 mg IVPUSH Q5M PRN; Protocol PRN Reason: Pain, Severe (Pain Scale 7-10) Last Admin: 05/18/22 13:30 Dose: 0.25 mg Hydromorphone HCl (Hydromorphone Hcl 0.5 Mg/0.5 Ml Syringe) 0.5 mg IVPUSH Q3H PRN; Protocol PRN Reason: Pain, Severe (Pain Scale 7-10) Acetaminophen (Ofirmev) 1,000 mg in 100 mls @ 400 mls/hr IV Q6H [facility] Stop: 05/19/22 09:14 Last Infusion: 05/18/22 16:17 Dose: Infused Dextrose/Lactated Ringer's (D5lr) 1,000 mls @ 125 mls/hr IVCONT .Q8H [facility] Last Admin: 05/18/22 15:43 Dose: 125 mls/hr Metronidazole (Flagyl) 500 mg in 100 mls @ 100 mls/hr IV Q8H [facility] Last Admin: 05/18/22 15:47 Dose: 100 mls/hr Levofloxacin (Levaquin) 750 mg in 150 mls @ 100 mls/hr IV Q48H [facility] Levothyroxine Sodium (Levothyroxine Sodium 50 Mcg Tablet) 50 mcg PO DAILY@0600 [facility] Lidocaine (Lidocaine 4 % Patch Adh..Patch) 1 patch TRANSDERMA DAILY [facility] Magnesium Hydroxide (Milk Of Magnesia 30 Ml Oral.Susp) 30 ml PO DAILY PRN PRN Reason: Constipation Memantine (Memantine Hcl 10 Mg Tablet) 10 mg PO BID [facility] Omeprazole (Omeprazole 20 Mg Capsule.Dr) 20 mg PO DAILY@0630 [facility] Ondansetron HCl (Ondansetron Hcl 4 Mg/2 Ml Vial) 4 mg IVPUSH Q8H PRN PRN Reason: Nausea and Vomiting Pharmacy Consult (Consult Rx Perform Med Rec) 1 each MISCELLANE ONCE PRN PRN Reason: Consult order Pregabalin (Pregabalin 150 Mg Capsule) 300 mg PO BID [facility] Ropinirole HCl (Ropinirole Hcl 2 Mg Tablet) 6 mg PO DAILY@1200 [facility] Ropinirole HCl (Ropinirole Hcl 2 Mg Tablet) 12 mg PO BEDTIME [facility] Sodium Chloride (0.9 % Sodium Chloride Flush 3 Ml Syringe) 3 ml IVFLUSH QSHIFT [facility] Last Admin: 05/18/22 15:55 Dose: 3 ml Tamsulosin HCl (Tamsulosin Hcl 0.4 Mg Capsule) 0.4 mg PO BID [facility] Tizanidine HCl (Tizanidine Hcl 4 Mg Tablet) 4 mg PO TID PRN PRN Reason: muscle spasticity Trazodone HCl (Trazodone Hcl 100 Mg Tablet) 300 mg PO BEDTIME PRN PRN Reason: insomnia Home Medications Medication Instructions Recorded Confirmed Last Taken Type carbidopa 25 mg-levodopa 100 mg 1 tab PO QID 01/21/20 05/17/22 05/17/22 History tablet diclofenac sodium 1 % topical gel 2 g topical QID PRN Inflammation 01/21/20 05/17/22 Unknown History finasteride 5 mg tablet 5 mg PO DAILY 01/21/20 05/17/22 05/17/22 History levothyroxine 50 mcg tablet 50 mcg PO DAILY@0600 01/21/20 05/17/22 05/17/22 History lidocaine 5 % topical patch 1 patch topical DAILY 01/21/20 05/17/22 05/17/22 History multivitamin (Daily Multi-Vitamin 1 tab PO DAILY 01/21/20 05/17/22 05/17/22 History tablet) tamsulosin 0.4 mg capsule 0.4 mg PO BID 01/21/20 05/17/22 05/17/22 History ondansetron HCl 4 mg tablet 4 mg PO DAILY PRN Nausea 09/15/20 05/17/22 Unknown History pantoprazole 40 mg tablet,delayed 40 mg PO DAILY@0630 09/15/20 05/17/22 05/17/22 History release ropinirole 3 mg tablet 12 mg PO BEDTIME 10/21/20 05/17/22 05/16/22 History fluticasone propionate 50 1 spray intranasal BID 10/27/20 05/17/22 05/17/22 History mcg/actuation nasal spray,suspension donepezil 10 mg tablet 10 mg PO BEDTIME 10/07/21 05/17/22 05/17/22 History duloxetine 60 mg capsule,delayed 60 mg PO DAILY 10/07/21 05/17/22 05/17/22 History release memantine 10 mg tablet 10 mg PO BID 10/07/21 05/17/22 05/17/22 History pregabalin 300 mg capsule 300 mg PO BID 10/07/21 05/17/22 05/17/22 History amantadine HCl 100 mg tablet 1 tab PO TID 04/12/22 05/17/22 05/17/22 History buspirone 10 mg tablet 1 tab PO BID PRN Anxiety 04/12/22 05/17/22 05/17/22 History cholecalciferol (vitamin D3) 50 50 mcg PO DAILY 04/12/22 05/17/22 05/17/22 History mcg (2,000 unit) tablet (Vitamin D3) ferrous sulfate 325 mg (65 mg 325 mg PO DAILY 04/12/22 05/17/22 05/17/22 History iron) tablet,delayed release lisinopril 20 mg tablet 1 tab PO DAILY 04/12/22 05/17/22 05/17/22 History ropinirole 3 mg tablet 6 mg PO DAILY@1200 04/12/22 05/17/22 05/17/22 History trazodone 100 mg tablet 3 tab PO BEDTIME PRN insomnia 04/12/22 05/17/22 05/16/22 History Physical Exam Vital Signs and Narrative: Vital Signs: Last Vital Signs Temp 98.7 F 05/18/22 15:06 Pulse 87 05/18/22 15:06 Resp 18 05/18/22 15:06 BP 118/65 05/18/22 15:06 Pulse Ox 98 05/18/22 15:06 O2 Del Method 05/18/22 15:06 O2 Flow Rate 3.0 05/18/22 15:06 BMI result Body Mass Index 31.9 Const: Other: sleepy but arousable to sternal rub initially and then remained more awake and easier to arouse with verbal stimuli Nutritional Appearance: overweight Resp: Other: decreased respiratory effort, diminished breath sounds Cardio: Rate: regular rate Heart sounds: S1 normal heart sound present and S2 normal heart sound present GI: Other: midline abdominal incision with c/d/i dressing; softly distended, avis-incisional tenderness : Other: cason in place draining yellow urine Neuro: Other: able to move all 4 extremities; sleepy,difficult for full neuro eval, following commands, tongue midline, face symmetrical. no focal deficits apprecitated Results Labs 05/17/22 18:07 05/17/22 18:07 Labs: Laboratory Results - last 24 hr 05/17/22 05/17/22 05/17/22 18:07 18:07 18:07 MCV 100.0 H MCH 31.8 MCHC 31.8 RDW 13.5 Plt Count TNP MPV 9.1 L Immature Gran % (Auto) Cancelled Neut % (Auto) Cancelled Lymph % (Auto) Cancelled [place] % (Auto) Cancelled Eos % (Auto) Cancelled Baso % (Auto) Cancelled Lymph # (Auto) Cancelled [place] # (Auto) Cancelled Eos # (Auto) Cancelled Baso # (Auto) Cancelled Abs Immat Gran (auto) Cancelled Absolute Neuts (auto) Cancelled Absolute Nucleated RBC 0.000 Nucleated RBC % (auto) 0.0 Neutrophils % (Manual) 43 L Band Neutrophils % 49 H Lymphocytes % (Manual) 3 L Monocytes % (Manual) 4 Eosinophils % (Manual) 1 Abs Neuts (Manual) 9.0 H Lymphocytes # (Manual) 0.3 L Monocytes # (Manual) 0.4 Eosinophils # (Manual) 0.1 Platelet Estimate NORMAL Plt Morphology Comment NORMAL RBC Morphology NORMAL PT INR Anion Gap 17 Estim Creat Clear Calc 22.7 Estimated GFR 19 Random Glucose 118 H Lactic Acid 1.2 Calcium 8.4 Total Bilirubin 1.0 Direct Bilirubin 0.6 H AST 18 ALT < 6 Alkaline Phosphatase 105 Ammonia Troponin I High Sens B-Natriuretic Peptide Total Protein 5.6 L Albumin 3.2 L Urine Color Urine Appearance Urine pH Ur Specific [place] Urine Protein Urine Glucose (UA) Urine Ketones Urine Blood Urine Nitrite Ur Leukocyte Esterase Urine RBC Urine WBC Ur Squamous Epith Cells Urine Bacteria Hyaline Casts Granular Casts COVID-19 (NITO) COVID-19 Clin Com Blood Type Antibody Screen 05/17/22 05/17/22 05/17/22 19:37 20:40 20:40 MCV MCH MCHC RDW Plt Count MPV Immature Gran % (Auto) Neut % (Auto) Lymph % (Auto) [place] % (Auto) Eos % (Auto) Baso % (Auto) Lymph # (Auto) [place] # (Auto) Eos # (Auto) Baso # (Auto) Abs Immat Gran (auto) Absolute Neuts (auto) Absolute Nucleated RBC Nucleated RBC % (auto) Neutrophils % (Manual) Band Neutrophils % Lymphocytes % (Manual) Monocytes % (Manual) Eosinophils % (Manual) Abs Neuts (Manual) Lymphocytes # (Manual) Monocytes # (Manual) Eosinophils # (Manual) Platelet Estimate Plt Morphology Comment RBC Morphology PT INR Anion Gap Estim Creat Clear Calc Estimated GFR Random Glucose Lactic Acid Calcium Total Bilirubin Direct Bilirubin AST ALT Alkaline Phosphatase Ammonia 37 Troponin I High Sens B-Natriuretic Peptide 172 H Total Protein Albumin Urine Color Urine Appearance Urine pH Ur Specific [place] Urine Protein Urine Glucose (UA) Urine Ketones Urine Blood Urine Nitrite Ur Leukocyte Esterase Urine RBC Urine WBC Ur Squamous Epith Cells Urine Bacteria Hyaline Casts Granular Casts COVID-19 (NITO) Negative COVID-19 Clin Com See Note Blood Type Antibody Screen 05/17/22 05/17/22 05/17/22 22:17 22:17 22:34 MCV MCH MCHC RDW Plt Count MPV Immature Gran % (Auto) Neut % (Auto) Lymph % (Auto) [place] % (Auto) Eos % (Auto) Baso % (Auto) Lymph # (Auto) [place] # (Auto) Eos # (Auto) Baso # (Auto) Abs Immat Gran (auto) Absolute Neuts (auto) Absolute Nucleated RBC Nucleated RBC % (auto) Neutrophils % (Manual) Band Neutrophils % Lymphocytes % (Manual) Monocytes % (Manual) Eosinophils % (Manual) Abs Neuts (Manual) Lymphocytes # (Manual) Monocytes # (Manual) Eosinophils # (Manual) Platelet Estimate Plt Morphology Comment RBC Morphology PT 13.0 INR 1.1 Anion Gap Estim Creat Clear Calc Estimated GFR Random Glucose Lactic Acid Calcium Total Bilirubin Direct Bilirubin AST ALT Alkaline Phosphatase Ammonia Troponin I High Sens B-Natriuretic Peptide Total Protein Albumin Urine Color [place] A Urine Appearance Turbid Urine pH 5.5 Ur Specific [place] 1.020 Urine Protein 100 (2+) H Urine Glucose (UA) 100 H Urine Ketones Negative Urine Blood Moderate (2+) H Urine Nitrite Positive H Ur Leukocyte Esterase Small (1+) H Urine RBC 3-5 H Urine WBC 6-10 H Ur Squamous Epith Cells >20 Urine Bacteria None Seen Hyaline Casts 3-5 Granular Casts Present COVID-19 (NITO) COVID-19 Clin Com Blood Type O Negative Antibody Screen NEGATIVE 05/17/22 05/18/22 22:48 03:03 MCV MCH MCHC RDW Plt Count MPV Immature Gran % (Auto) Neut % (Auto) Lymph % (Auto) [place] % (Auto) Eos % (Auto) Baso % (Auto) Lymph # (Auto) [place] # (Auto) Eos # (Auto) Baso # (Auto) Abs Immat Gran (auto) Absolute Neuts (auto) Absolute Nucleated RBC Nucleated RBC % (auto) Neutrophils % (Manual) Band Neutrophils % Lymphocytes % (Manual) Monocytes % (Manual) Eosinophils % (Manual) Abs Neuts (Manual) Lymphocytes # (Manual) Monocytes # (Manual) Eosinophils # (Manual) Platelet Estimate Plt Morphology Comment RBC Morphology PT INR Anion Gap Estim Creat Clear Calc Estimated GFR Random Glucose Lactic Acid Calcium Total Bilirubin Direct Bilirubin AST ALT Alkaline Phosphatase Ammonia Troponin I High Sens 4.4 B-Natriuretic Peptide 170 H Total Protein Albumin Urine Color Urine Appearance Urine pH Ur Specific [place] Urine Protein Urine Glucose (UA) Urine Ketones Urine Blood Urine Nitrite Ur Leukocyte Esterase Urine RBC Urine WBC Ur Squamous Epith Cells Urine Bacteria Hyaline Casts Granular Casts COVID-19 (NITO) COVID-19 Clin Com Blood Type Antibody Screen Imaging Radiologist's Impressions: Impressions Abdomen/Pelvis CT 05/17/22 20:25 IMPRESSION: Diffuse colonic diverticulosis most prominent sigmoid colon with diffuse mural thickening, significant fat stranding and extraluminal air along the left aspect of the sigmoid colon as described above. There is scattered free air extending into the upper abdomen. No acute intracranial process seen. Suspect right frontal scalp hematoma. Results were immediately called by phone to Clifton Mayen in ED at 9:[address] 05/17/22 20:25 IMPRESSION: Diffuse colonic diverticulosis most prominent sigmoid colon with diffuse mural thickening, significant fat stranding and extraluminal air along the left aspect of the sigmoid colon as described above. There is scattered free air extending into the upper abdomen. No acute intracranial process seen. Suspect right frontal scalp hematoma. Results were immediately called by phone to Clifton Mayen in ED at 9:35 PM. Chest X-Ray 05/18/22 00:33 IMPRESSION: Interval decrease in findings of pulmonary edema compared to prior. Suggestion of mild residual central vascular congestion. Chest X-Ray 05/18/22 02:57 IMPRESSION: Low lung volumes with mild streaky bibasilar opacities more suggestive of atelectasis. Mildly prominent central vasculature and surrounding interstitium may reflect a degree of congestion versus airways disease. Assessment and Plan (1) LILIANA (acute kidney injury): Status: Acute (2) Perforated diverticulum of large intestine: Status: Acute Plan This is a 71 year old male with history of Parkinson's disease, chronic back pain, HTN, BPH, hypothyroidism, recent admission for PNA and fusobacterium bacteremia who presented to the ED with abdominal pain found to have perforated diverticulitis with intraabdominal abscess, LILIANA s/p exploratory laparotomy/Milla procedure perforated diverticulitis/perotonitis/abdominal abscess s/p ex lab, Milla procedure 2/2 management per surgical team follow intra-abdominal abscess cultures blood cultures pending continue IV levaquin, flagyl- can consider changing levquin to 500 q48 based on current renal function LILIANA creatinine above 3, with baseline 0.6 likely r/t infection, decreased PO intake multiple sedating medications that require dose adjustments; adjustments made repeat BMP ordered now if creatinine trends up will involve nephrology continue IVF follow BMP, UO closely toxic metabolic encaphalopathy r/t acute infection, LILIANA, multiple sedating meds brain CT negative Urine culture negative patient following commands but difficult to fully assess post-anesthesia will check VBG chronic pain pain/RLS on multiple medications baclofen, duloxetine on hold pregabalin, tizanidine dose decreased continue requip adjust med doses based on renal function Parksinon's disease/dementia namenda, amantadine dose decreased continue aricept, sinemet adjust med doses based on renal function BPH cason in place continue proscar, flomax HTN continue diltiezem hold lisinopril FRANCES not complaint with CPAP at baseline Thank you for allowing us to participate in the care of this patient. we will follow along with you attending - dr. us Time Spent With Patient Time: Total time managing care of this patient today ____ minutes.
[2022-05-18] MEDS: rOPINIRole HCL 2 MG TABLET 6 MG PO (17:19)
[2022-05-18] MEDS: Carbidopa/Levodopa 25/100 TABLET 1 TAB PO ×2 (17:20→20:47)
[2022-05-18] MEDS: amantadine HCL 100 MG CAPSULE PO (17:29)
[2022-05-18 17:46] LABS: Hematocrit 38.3 % (42.0-52.0); Hemoglobin 12.1 g/dl (14.0-18.0); Mean Corpuscular HGB Conc 31.6 g/dl (31.0-36.0); Mean Corpuscular Hemoglobin 32.4 pg (27.0-33.0); Mean Corpuscular Volume 102.4 fL (80.0-98.0); Mean Platelet Volume 9.3 fL (9.4-12.4); Platelet Count 242 X10*3/uL (160-400); Red Blood Count 3.74 X10*6/uL (4.60-5.80); Red Cell Distribution Width 13.9 % (11.0-16.0); White Blood Count 10.7 X10*3/uL (4.8-10.8)
[2022-05-18 17:46] LABS: Venous Blood Gas Refer to POC result
[2022-05-18 17:47] LABS: VBG Base Excess 1.2 mmol/L; VBG HCO3 27 mmol/L (22-26); VBG pCO2 49 mmHg; VBG pH 7.34 (7.32-7.43); VBG pO2 132 mmHg
[2022-05-18 18:04] LABS: Anion Gap 22 (12-20); Blood Urea Nitrogen 56 mg/dL (9-16); Calcium 7.7 mg/dL (8.4-10.2); Carbon Dioxide 19 mmol/L (22-29); Chloride 105 mmol/L (96-108); Glucose Random 111 mg/dL (60-115); Potassium 5.8 mmol/L (3.3-5.1); Sodium 140 mmol/L (135-145)
[2022-05-18 18:28] LABS: Creatinine Clr Calc Pharmacy 15.4; Estimated Glomerular Filt Rate 12
--- NOTE | 2022-05-18 18:36 | PC.NURSE ---
Provider notified about critical creatinine and k.
--- NOTE | 2022-05-18 18:53 | PM.EVENT ---
Event Note Date of Service: 05/19/22 Event Note: I saw the patient the patient with APC and saw again myself later, he was very sleepy but has been awake and interacting with family although they say he can dose of pretty easily, he was holding normal conversation with me, he respirattion rate is normal 18, lab show elevated Cr of 4.68, likely pre renal state.. IVF at 150 cc/hr and repeat labs in, Otherwise I agree A/P Per APC. Time Spent With Patient Time: Total time managing care of this patient today ____ minutes.
[2022-05-18] MEDS: Tamsulosin HCL 0.4 MG CAPSULE PO (20:47)
[2022-05-18] MEDS: Pregabalin 150 MG CAPSULE PO (20:47)
[2022-05-18] MEDS: Donepezil HCl 10 MG TABLET PO (20:47)
[2022-05-18] MEDS: Memantine HCl 5 MG TABLET PO (20:48)
[2022-05-18] MEDS: rOPINIRole HCL 2 MG TABLET 12 MG PO (20:48)
[2022-05-18] MEDS: Sodium Zirconium Cyclosilicate 10 GM POWD.PACK PO (20:49)
[2022-05-18] MEDS: traZODone HCL 100 MG TABLET 300 MG PO (20:59)
[2022-05-18] MEDS: HYDROmorphone HCl 0.5 MG/0.5 ML SYRINGE IVPUSH (20:59)
[2022-05-18] MEDS: Dextrose 5 % and Lactated Ring 1,000 ML 150 ML IVCONT (22:40)
[2022-05-19] VITALS: BP 104/57; PULSE 81; RESP 18; TEMP 36.8; O2SAT 94
[2022-05-19 03:26] VITALS: BP 110/59; PULSE 90; RESP 20; TEMP 37; O2SAT 97
[2022-05-19] MEDS: Levothyroxine Sodium 50 MCG TABLET PO (06:13)
[2022-05-19] MEDS: Omeprazole 20 MG CAPSULE.DR PO (06:13)
[2022-05-19] MEDS: HYDROmorphone HCl 0.5 MG/0.5 ML SYRINGE IVPUSH ×2 (06:13→14:42)
[2022-05-19] MEDS: metroNIDAZOLE/NS 500 MG/100 ML PIGGYBACK 100 MG IV ×2 (06:13→17:16)
[2022-05-19] MEDS: Dextrose 5 % and Lactated Ring 1,000 ML 150 ML IVCONT (06:15)
[2022-05-19 07:31] LABS: Hemoglobin 11.3 g/dl (14.0-18.0); Mean Corpuscular HGB Conc 31.4 g/dl (31.0-36.0); Mean Corpuscular Hemoglobin 31.7 pg (27.0-33.0); Mean Corpuscular Volume 101.1 fL (80.0-98.0); Mean Platelet Volume 9.3 fL (9.4-12.4); Platelet Count 280 X10*3/uL (160-400); Red Blood Count 3.56 X10*6/uL (4.60-5.80); Red Cell Distribution Width 14.1 % (11.0-16.0); White Blood Count 11.6 X10*3/uL (4.8-10.8)
[2022-05-19 07:44] VITALS: BP 130/60; PULSE 95; RESP 16; TEMP 36.8; O2SAT 95
[2022-05-19] MEDS: Lidocaine 4 % Patch ADH..PATCH 1 PATCH TRANSDERMA (07:54)
[2022-05-19 07:55] LABS: Creatinine Clr Calc Pharmacy 14.2; Estimated Glomerular Filt Rate 11
[2022-05-19] MEDS: Carbidopa/Levodopa 25/100 TABLET 1 TAB PO ×3 (07:55→18:02)
[2022-05-19 07:56] LABS: Anion Gap 21 (12-20); Blood Urea Nitrogen 65 mg/dL (9-16); Calcium 7.2 mg/dL (8.4-10.2); Carbon Dioxide 22 mmol/L (22-29); Chloride 104 mmol/L (96-108); Glucose Random 121 mg/dL (60-115); Potassium 5.4 mmol/L (3.3-5.1); Sodium 142 mmol/L (135-145)
[2022-05-19] MEDS: Memantine HCl 5 MG TABLET PO (07:56)
[2022-05-19] MEDS: Pregabalin 150 MG CAPSULE PO (07:56)
[2022-05-19] MEDS: Tamsulosin HCL 0.4 MG CAPSULE PO (07:56)
[2022-05-19] MEDS: DULoxetine HCl 60 MG CAPSULE.DR PO (07:56)
[2022-05-19] MEDS: dilTIAZem HCL CD 240 MG CAP.ER.DEG PO (07:57)
[2022-05-19] MEDS: Finasteride 5 MG TABLET PO (07:57)
[2022-05-19] MEDS: ondansetron HCL 4 MG/2 ML VIAL IVPUSH ×2 (08:01→14:51)
[2022-05-19 08:12] LABS: Band Neutrophils Percent 18 % (3-5); Lymphocytes Absolute Manual 0.5 X10*3/uL (1.2-4.9); Lymphocytes Percent Manual 4 % (20-40); Metamyelocytes Absolute 0.1 X10*3/uL; Metamyelocytes Percent 1 %; Monocytes Absolute Manual 0.3 X10*3/uL (0.1-1.2); Monocytes Percent Manual 3 % (2-11); Myelocytes Absolute 0.1 X10*/uL; Myelocytes Percent 1 %; Neutrophils Absolute Manual 10.6 X10*3/uL (2.0-8.3); Neutrophils Percent Manual 73 % (45-73)
[2022-05-19 08:16] LABS: Acanthocytes 1+ (0-2) /OIF; Burr Cells 3+ (>5) /OIF; Macrocytosis 1+ (5-14) /OIF; RBC Morphology NOTED
[2022-05-19 08:17] LABS: Platelet Estimate NORMAL (NORMAL)
[2022-05-19 08:20] LABS: Platelet Morphology Comment NOTE
--- NOTE | 2022-05-19 08:29 | P.CONNP_ITS ---
History of Present Illness Reason for Consult Consult date: 05/19/22 Reason for consult: LILIANA Hyperkalemia Requesting physician: Patricia Lal Chief Complaint Chief complaint: urinary issue, cant urinate History of Present Illness Narrative: Mr. Kevan Rivas is a?71-year-old male with past medical history of HTN, HLD, Parkinsons, and Chronic Pain on chronic Naproxen and Opioids who presented to the emergency department with abdominal pain found to have perforated diverticulitis. He underwent exploratory laparotomy/Milla procedure secondary to perforated sigmoid diverticulitis with multiple pelvic abscesses.? He initially began having abdominal pain on Sunday afternoon which progressively worsened. In this time he continued taking his Lisinopril and BID Naproxen. In this setting he has reduced UOP for 24-48 hours. Initial lab work revelaed LILIANA with creatinine of 3.18 now rising to >5mg/dL. This is also associated with confusion and hyperkalemia. Despite IVF support, Abx, and hemodynamic support, UOP and GFR have not improved. Today we discussed options for dialysis. is agreeable. Review of Systems Review of Systems Constitutional : No Weight loss, No Fever, No Chills, No Fatigue, No Malaise ENT/Mouth : No sore throat, No Rhinorrhea Eyes: No Eye Pain, No Swelling, No Redness Cardiovascular : No Chest Pain, No SOB, No Dyspnea on Exertion, No Orthopnea, No Edema, No Palpitations Respiratory : No Cough, No Sputum, No Wheezing Gastrointestinal : No Nausea, No Vomiting, No Diarrhea, No Constipation, + abdominal Pain, No Hematochezia, No Melena Genitourinary : No Dysuria, No Urinary Frequency, No Hematuria, + inability to void, + decreased urinary stream Musculoskeletal : No joint pain, No Myalgias, No Joint Swelling Skin : No Skin Lesions, No rash Neuro : No Weakness, No Numbness, No Dizziness, No Headache Psych : No Anxiety/Panic, No Depression All other systems reviewed and are negative Reports confusion Psychiatric: Reports confusion PMFSH Past Medical History Medical History Bilateral primary osteoarthritis of knee BPH (benign prostatic hyperplasia) Chronic pain syndrome Failed back syndrome of cervical spine GERD (gastroesophageal reflux disease) Hard of hearing HTN (hypertension) Hypertensive heart disease Hypothyroidism PAC (premature atrial contraction) Parkinsons Restless leg syndrome Family History Pertinent family history: no family history of Parkinson's disease Social History Social History Household Members: Spouse Household Members Other:: 1 Housing: House Do you presently have visiting nurse or other home services: No Alcohol intake: current Alcohol intake frequency: holidays/special occasions only Patient Tobacco Use Status: Former Tobacco user Tobacco use type: Cigarette e-Cigarette/Vaping Use: Former Use Second Hand Smoke Exposure: No Substance Use Type: Marijuana and Prescription Drugs Advance Directives Date on File: 01/19/20 service: No Current occupational status: retired Meds Allergies Allergy/AdvReac Type Severity Reaction Status Date / Time Sulfa (Sulfonamide Allergy Severe HIVES/DIFF. Verified 05/05/22 10:02 Antibiotics) BREATHING vancomycin [VANCOMYCIN] Allergy Severe SHORTNESS Verified 05/05/22 10:02 OF BREATH cephalexin [CEPHALEXIN] Allergy Intermediate SHORTNESS Verified 05/05/22 10:02 OF BREATH DAIRY PRODUCTS AdvReac Intermediate GI Uncoded 03/27/22 11:11 UPSET/DIARRHEA Active Medications: Current Medications Amantadine HCl (Amantadine Hcl 100 Mg Capsule) 100 mg PO Q2D [facility] Last Admin: 05/18/22 17:29 Dose: 100 mg Baclofen (Baclofen 20 Mg Tablet) 20 mg PO BID PRN PRN Reason: pain (scale score 4-6) Buspirone HCl (Buspirone Hcl 10 Mg Tablet) 10 mg PO BID PRN PRN Reason: Anxiety Carbidopa/Levodopa (Carbidopa/Levodopa 25/100 Tablet) 1 tab PO QID [facility] Last Admin: 05/19/22 07:55 Dose: 1 tab Diltiazem HCl (Diltiazem Hcl Cd 240 Mg Cap.Er.Deg) 240 mg PO DAILY [facility]; Protocol Last Admin: 05/19/22 07:57 Dose: 240 mg Donepezil HCl (Donepezil Hcl 10 Mg Tablet) 10 mg PO BEDTIME [facility] Last Admin: 05/18/22 20:47 Dose: 10 mg Duloxetine HCl (Duloxetine Hcl 60 Mg Capsule.Dr) 60 mg PO DAILY [facility] Last Admin: 05/19/22 07:56 Dose: 60 mg Finasteride (Finasteride 5 Mg Tablet) 5 mg PO DAILY [facility] Last Admin: 05/19/22 07:57 Dose: 5 mg Fluticasone Propionate (Fluticasone Propionate Nasal 16 Gm [place]) 1 spray NOSTRIL-B BID [facility] Last Admin: 05/18/22 21:00 Dose: Not Given Hydromorphone HCl (Hydromorphone Hcl 0.5 Mg/0.5 Ml Syringe) 0.25 mg IVPUSH Q5M PRN; Protocol PRN Reason: Pain, Severe (Pain Scale 7-10) Last Admin: 05/18/22 13:30 Dose: 0.25 mg Hydromorphone HCl (Hydromorphone Hcl 0.5 Mg/0.5 Ml Syringe) 0.5 mg IVPUSH Q3H PRN; Protocol PRN Reason: Pain, Severe (Pain Scale 7-10) Last Admin: 05/19/22 06:13 Dose: 0.5 mg Acetaminophen (Ofirmev) 1,000 mg in 100 mls @ 400 mls/hr IV Q6H [facility] Stop: 05/19/22 09:14 Last Admin: 05/19/22 04:15 Dose: Not Given Dextrose/Lactated Ringer's (D5lr) 1,000 mls @ 150 mls/hr IVCONT .Q6H40M [facility] Last Admin: 05/19/22 06:15 Dose: 150 mls/hr Metronidazole (Flagyl) 500 mg in 100 mls @ 100 mls/hr IV Q8H [facility] Last Admin: 05/19/22 06:13 Dose: 100 mls/hr Levofloxacin (Levaquin) 750 mg in 150 mls @ 100 mls/hr IV Q48H [facility] Levothyroxine Sodium (Levothyroxine Sodium 50 Mcg Tablet) 50 mcg PO DAILY@0600 [facility] Last Admin: 05/19/22 06:13 Dose: 50 mcg Lidocaine (Lidocaine 4 % Patch Adh..Patch) 1 patch TRANSDERMA DAILY [facility] Last Admin: 05/19/22 07:54 Dose: 1 patch Magnesium Hydroxide (Milk Of Magnesia 30 Ml Oral.Susp) 30 ml PO DAILY PRN PRN Reason: Constipation Memantine (Memantine Hcl 5 Mg Tablet) 5 mg PO BID [facility] Last Admin: 05/19/22 07:56 Dose: 5 mg Omeprazole (Omeprazole 20 Mg Capsule.Dr) 20 mg PO DAILY@0630 [facility] Last Admin: 05/19/22 06:13 Dose: 20 mg Ondansetron HCl (Ondansetron Hcl 4 Mg/2 Ml Vial) 4 mg IVPUSH Q8H PRN PRN Reason: Nausea and Vomiting Last Admin: 05/19/22 08:01 Dose: 4 mg Pharmacy Consult (Consult Rx Perform Med Rec) 1 each MISCELLANE ONCE PRN PRN Reason: Consult order Pregabalin (Pregabalin 150 Mg Capsule) 150 mg PO BID [facility] Last Admin: 05/19/22 07:56 Dose: 150 mg Ropinirole HCl (Ropinirole Hcl 2 Mg Tablet) 6 mg PO DAILY@1200 [facility] Last Admin: 05/18/22 17:19 Dose: 6 mg Ropinirole HCl (Ropinirole Hcl 2 Mg Tablet) 12 mg PO BEDTIME [facility] Last Admin: 05/18/22 20:48 Dose: 12 mg Sodium Chloride (0.9 % Sodium Chloride Flush 3 Ml Syringe) 3 ml IVFLUSH QSHIFT [facility] Last Admin: 05/19/22 07:53 Dose: Not Given Tamsulosin HCl (Tamsulosin Hcl 0.4 Mg Capsule) 0.4 mg PO BID [facility] Last Admin: 05/19/22 07:56 Dose: 0.4 mg Tizanidine HCl (Tizanidine Hcl 4 Mg Tablet) 4 mg PO DAILY PRN PRN Reason: muscle spasticity Trazodone HCl (Trazodone Hcl 100 Mg Tablet) 300 mg PO BEDTIME PRN PRN Reason: insomnia Last Admin: 05/18/22 20:59 Dose: 300 mg Home Medications Medication Instructions Recorded Confirmed Last Taken Type carbidopa 25 mg-levodopa 100 mg 1 tab PO QID 01/21/20 05/17/22 05/17/22 History tablet diclofenac sodium 1 % topical gel 2 g topical QID PRN Inflammation 01/21/20 05/17/22 Unknown History finasteride 5 mg tablet 5 mg PO DAILY 01/21/20 05/17/22 05/17/22 History levothyroxine 50 mcg tablet 50 mcg PO DAILY@0600 01/21/20 05/17/22 05/17/22 History lidocaine 5 % topical patch 1 patch topical DAILY 01/21/20 05/17/22 05/17/22 History multivitamin (Daily Multi-Vitamin 1 tab PO DAILY 01/21/20 05/17/22 05/17/22 History tablet) tamsulosin 0.4 mg capsule 0.4 mg PO BID 01/21/20 05/17/22 05/17/22 History ondansetron HCl 4 mg tablet 4 mg PO DAILY PRN Nausea 09/15/20 05/17/22 Unknown History pantoprazole 40 mg tablet,delayed 40 mg PO DAILY@0630 09/15/20 05/17/22 05/17/22 History release ropinirole 3 mg tablet 12 mg PO BEDTIME 10/21/20 05/17/22 05/16/22 History fluticasone propionate 50 1 spray intranasal BID 10/27/20 05/17/22 05/17/22 History mcg/actuation nasal spray,suspension donepezil 10 mg tablet 10 mg PO BEDTIME 10/07/21 05/17/22 05/17/22 History duloxetine 60 mg capsule,delayed 60 mg PO DAILY 10/07/21 05/17/22 05/17/22 History release memantine 10 mg tablet 10 mg PO BID 10/07/21 05/17/22 05/17/22 History pregabalin 300 mg capsule 300 mg PO BID 10/07/21 05/17/22 05/17/22 History amantadine HCl 100 mg tablet 1 tab PO TID 04/12/22 05/17/22 05/17/22 History buspirone 10 mg tablet 1 tab PO BID PRN Anxiety 04/12/22 05/17/22 05/17/22 History cholecalciferol (vitamin D3) 50 50 mcg PO DAILY 04/12/22 05/17/22 05/17/22 History mcg (2,000 unit) tablet (Vitamin D3) ferrous sulfate 325 mg (65 mg 325 mg PO DAILY 04/12/22 05/17/22 05/17/22 History iron) tablet,delayed release lisinopril 20 mg tablet 1 tab PO DAILY 04/12/22 05/17/22 05/17/22 History ropinirole 3 mg tablet 6 mg PO DAILY@1200 04/12/22 05/17/22 05/17/22 History trazodone 100 mg tablet 3 tab PO BEDTIME PRN insomnia 04/12/22 05/17/22 05/16/22 History Physical Exam Vital Signs: Last Vital Signs Temp 98.3 F 05/19/22 07:44 Pulse 95 05/19/22 07:44 Resp 16 05/19/22 07:44 BP 130/60 05/19/22 07:44 Pulse Ox 95 05/19/22 07:44 O2 Del Method 05/19/22 07:44 O2 Flow Rate 5 05/19/22 07:44 BMI result Body Mass Index 31.9 Const General: cooperative and confusion Orientation/consciousness: confusion Resp Other: decreased respiratory effort, diminished breath sounds Effort & Inspection: normal respiratory effort and able to speak in complete sentences Auscultation: clear to auscultation bilaterally, no crackles, no rales and no rhonchi Cardio Rate: regular rate Rhythm: regular rhythm Heart sounds: S1 normal heart sound present and S2 normal heart sound present GI Other: midline abdominal incision with c/d/i dressing; softly distended, avis- incisional tenderness Other: cason in place draining yellow urine Neuro Other: able to move all 4 extremities; sleepy,difficult for full neuro eval, following commands, tongue midline, face symmetrical. no focal deficits apprecitated General: confusion Extrem General: Yes normal to inspection and Yes no clubbing, cyanosis or edema Psych Appearance: grossly normal Results Lab Results 05/19/22 06:45 05/19/22 06:45 Lab results: Chemistry 05/17/22 05/18/22 05/19/22 18:07 17:29 06:45 Sodium 141 140 142 Potassium 4.6 D 5.8 H D 5.4 H Carbon Dioxide 26 19 L 22 BUN 41 H 56 H 65 H Creatinine 3.18 H 4.68 H* 5.08 H* Calcium 8.4 7.7 L D 7.2 L D Hematology 05/17/22 05/18/22 05/19/22 18:07 17:29 06:45 WBC 9.8 10.7 11.6 H Hgb 12.2 L 12.1 L 11.3 L Plt Count TNP 242 280 Urinalysis 05/17/22 22:34 Urine Color [place] A Urine Appearance Turbid Urine pH 5.5 Ur Specific [place] 1.020 Urine Protein 100 (2+) H Urine Glucose (UA) 100 H Urine Ketones Negative Urine Blood Moderate (2+) H Urine Nitrite Positive H Ur Leukocyte Esterase Small (1+) H Urine RBC 3-5 H Urine WBC 6-10 H Ur Squamous Epith Cells >20 Hyaline Casts 3-5 Assessment and Plan (1) LILIANA (acute kidney injury): Status: Acute (2) Perforated diverticulum of large intestine: Status: Acute Plan Mr. Kevan Rivas is a?71-year-old male with past medical history of HTN, HLD, Parkinsons, and Chronic Pain on chronic Naproxen and Opioids who presented to the emergency department with abdominal pain found to have perforated div erticulitis. He underwent exploratory laparotomy/Milla procedure secondary to perforated sigmoid diverticulitis with multiple pelvic abscesses.?Course now complicated by LILIANA, Hyperkalemia and Oliguria all refractory to resuscitation and Abx efforts. 1. Oliguric LILIANA baseline Cr 0.6mg/dL Cr rising >5mg/dL CT imaging ruled out obstruction U/A with granular MBC sediment c/w tubular necrosis. Overall I high suspect ATN in the setting of severe sepsis, hemodynamic compromise, renal hypoperfusion, cytokine storm, decreased PO intake and ongoing BID Naproxen Glomerular pathology unlikely AIN cannot be ruled out, but does ont necessarily fit the picture Obstruction ruled out Plan: - Lokelma 10g now - Consult IR for temp dalysis line, preferred over Permcath because we don't yet know if patient is bacteremic - Dialysis planned today 2K bath for 2 hours at 250ml/min BFR - Dialysis again planned tomorrow 2K bath 2 hours with BFR 400ml/min - daily labs - monitor uop by cason - HOld ZACHARY - No NSAIDs Time Spent With Patient Time: Total time managing care of this patient today ____ minutes. Procedures Date of Service Date of Service: 05/19/22
--- NOTE | 2022-05-19 08:36 | PM.PNGS ---
Subjective Subjective Date of Service: 05/19/22 <Keli Zelaya PA-C - Last Filed: 05/19/22 08:43> 05/19/22 <Aric Mcneill MD - Last Filed: 05/19/22 09:11> Interval history: Very confused this morning per . C/o nausea and abdominal pain. <Keli Zelaya PA-C - Last Filed: 05/19/22 08:43> Physical Exam Vital Signs: Vital Signs: Last Vital Signs Temp 98.3 F 05/19/22 07:44 Pulse 95 05/19/22 07:44 Resp 16 05/19/22 07:44 BP 130/60 05/19/22 07:44 Pulse Ox 95 05/19/22 07:44 O2 Del Method 05/19/22 07:44 O2 Flow Rate 5 05/19/22 07:44 BMI result Body Mass Index 31.9 <Keli Zelaya PA-C - Last Filed: 05/19/22 08:43> Const: General: no acute distress and alert <Keli Zelaya PA-C - Last Filed: 05/19/22 08:43> Resp: Effort & Inspection: normal respiratory effort <CAESAR Villalobos Last Filed: 05/19/22 08:43> GI: Other: stoma slightly dusky, small amount of sanguineous output in appliance <Keli Zelaya PA-C - Last Filed: 05/19/22 08:43> Inspection: Yes incision (dressing intact) <Keli Zelaya PA-C - Last Filed: 05/19/22 08:43> Palpation (GI): Soft to palpation, Tenderness to palpation present (GI) (diffusely), no guarding and not rigid <CAESAR Villalobos Last Filed: 05/19/22 08:43> Percussion: Yes normal to percussion <CAESAR Villalobos Last Filed: 05/19/22 08:43> Skin: General skin exam: no rashes or lesions noted <CAESAR Villalobos Last Filed: 05/19/22 08:43> Neuro: Other: alert and oriented to person and place <Keli Zelaya PA-C - Last Filed: 05/19/22 08:43> Objective Data Active Medications Amantadine HCl (Amantadine Hcl 100 Mg Capsule) 100 mg PO Q2D [facility] Last Admin: 05/18/22 17:29 Dose: 100 mg Documented By: JUANI-NYANLion Baclofen (Baclofen 20 Mg Tablet) 20 mg PO BID PRN PRN Reason: pain (scale score 4-6) Buspirone HCl (Buspirone Hcl 10 Mg Tablet) 10 mg PO BID PRN PRN Reason: Anxiety Carbidopa/Levodopa (Carbidopa/Levodopa 25/100 Tablet) 1 tab PO QID [facility] Last Admin: 05/19/22 07:55 Dose: 1 tab Documented By: ASHISH Diltiazem HCl (Diltiazem Hcl Cd 240 Mg Cap.Er.Deg) 240 mg PO DAILY [facility]; Protocol Last Admin: 05/19/22 07:57 Dose: 240 mg Documented By: ASHISH Donepezil HCl (Donepezil Hcl 10 Mg Tablet) 10 mg PO BEDTIME [facility] Last Admin: 05/18/22 20:47 Dose: 10 mg Documented By: CONSTANZA Duloxetine HCl (Duloxetine Hcl 60 Mg Capsule.Dr) 60 mg PO DAILY [facility] Last Admin: 05/19/22 07:56 Dose: 60 mg Documented By: ASHISH Finasteride (Finasteride 5 Mg Tablet) 5 mg PO DAILY [facility] Last Admin: 05/19/22 07:57 Dose: 5 mg Documented By: ASHISH Fluticasone Propionate (Fluticasone Propionate Nasal 16 Gm [place]) 1 spray NOSTRIL-B BID [facility] Last Admin: 05/18/22 21:00 Dose: Not Given Documented By: CONSTANZA Non-Admin Reason: Med Not Available Hydromorphone HCl (Hydromorphone Hcl 0.5 Mg/0.5 Ml Syringe) 0.25 mg IVPUSH Q5M PRN; Protocol PRN Reason: Pain, Severe (Pain Scale 7-10) Last Admin: 05/18/22 13:30 Dose: 0.25 mg Documented By: HELENA Hydromorphone HCl (Hydromorphone Hcl 0.5 Mg/0.5 Ml Syringe) 0.5 mg IVPUSH Q3H PRN; Protocol PRN Reason: Pain, Severe (Pain Scale 7-10) Last Admin: 05/19/22 06:13 Dose: 0.5 mg Documented By: CARIE Acetaminophen (Ofirmev) 1,000 mg in 100 mls @ 400 mls/hr IV Q6H [facility] Stop: 05/19/22 09:14 Last Admin: 05/19/22 04:15 Dose: Not Given Documented By: CARIE Non-Admin Reason: Patient Asleep Dextrose/Lactated Ringer's (D5lr) 1,000 mls @ 150 mls/hr IVCONT .Q6H40M [facility] Last Admin: 05/19/22 06:15 Dose: 150 mls/hr Documented By: CARIE Metronidazole (Flagyl) 500 mg in 100 mls @ 100 mls/hr IV Q8H [facility] Last Admin: 05/19/22 06:13 Dose: 100 mls/hr Documented By: CARIE Levofloxacin (Levaquin) 750 mg in 150 mls @ 100 mls/hr IV Q48H [facility] Levothyroxine Sodium (Levothyroxine Sodium 50 Mcg Tablet) 50 mcg PO DAILY@0600 [facility] Last Admin: 05/19/22 06:13 Dose: 50 mcg Documented By: CARIE Lidocaine (Lidocaine 4 % Patch Adh..Patch) 1 patch TRANSDERMA DAILY [facility] Last Admin: 05/19/22 07:54 Dose: 1 patch Documented By: ASHISH Magnesium Hydroxide (Milk Of Magnesia 30 Ml Oral.Susp) 30 ml PO DAILY PRN PRN Reason: Constipation Memantine (Memantine Hcl 5 Mg Tablet) 5 mg PO BID [facility] Last Admin: 05/19/22 07:56 Dose: 5 mg Documented By: ASHISH Omeprazole (Omeprazole 20 Mg Capsule.Dr) 20 mg PO DAILY@0630 [facility] Last Admin: 05/19/22 06:13 Dose: 20 mg Documented By: CARIE Ondansetron HCl (Ondansetron Hcl 4 Mg/2 Ml Vial) 4 mg IVPUSH Q8H PRN PRN Reason: Nausea and Vomiting Last Admin: 05/19/22 08:01 Dose: 4 mg Documented By: ASHISH Pharmacy Consult (Consult Rx Perform Med Rec) 1 each MISCELLANE ONCE PRN PRN Reason: Consult order Pregabalin (Pregabalin 150 Mg Capsule) 150 mg PO BID [facility] Last Admin: 05/19/22 07:56 Dose: 150 mg Documented By: ASHISH Ropinirole HCl (Ropinirole Hcl 2 Mg Tablet) 6 mg PO DAILY@1200 [facility] Last Admin: 05/18/22 17:19 Dose: 6 mg Documented By: JUSTICE Ropinirole HCl (Ropinirole Hcl 2 Mg Tablet) 12 mg PO BEDTIME [facility] Last Admin: 05/18/22 20:48 Dose: 12 mg Documented By: CONSTANZA Sodium Chloride (0.9 % Sodium Chloride Flush 3 Ml Syringe) 3 ml IVFLUSH QSHIFT [facility] Last Admin: 05/19/22 07:53 Dose: Not Given Documented By: ASHISH Non-Admin Reason: IV Running Tamsulosin HCl (Tamsulosin Hcl 0.4 Mg Capsule) 0.4 mg PO BID [facility] Last Admin: 05/19/22 07:56 Dose: 0.4 mg Documented By: ASHISH Tizanidine HCl (Tizanidine Hcl 4 Mg Tablet) 4 mg PO DAILY PRN PRN Reason: muscle spasticity Trazodone HCl (Trazodone Hcl 100 Mg Tablet) 300 mg PO BEDTIME PRN PRN Reason: insomnia Last Admin: 05/18/22 20:59 Dose: 300 mg Documented By: CONSTANZA <Keli Zelaya PA-C - Last Filed: 05/19/22 08:43> Labs CBC & Chem 7: 05/19/22 06:45 05/19/22 06:45 <Keli Zelaya PA-C - Last Filed: 05/19/22 08:43> Labs: Laboratory Results - last 24 hr 05/18/22 05/18/22 05/18/22 17:29 17:29 17:41 MCV 102.4 H MCH 32.4 MCHC 31.6 RDW 13.9 Plt Count 242 MPV 9.3 L Immature Gran % (Auto) Neut % (Auto) Lymph % (Auto) [place] % (Auto) Eos % (Auto) Baso % (Auto) Lymph # (Auto) [place] # (Auto) Eos # (Auto) Baso # (Auto) Abs Immat Gran (auto) Absolute Neuts (auto) Absolute Nucleated RBC 0.000 Nucleated RBC % (auto) 0.0 Neutrophils % (Manual) Band Neutrophils % Lymphocytes % (Manual) Monocytes % (Manual) Metamyelocytes % Myelocytes % Abs Neuts (Manual) Lymphocytes # (Manual) Monocytes # (Manual) Metamyelocytes # Myelocytes # Platelet Estimate Plt Morphology Comment RBC Morphology Macrocytosis [place] Cells Acanthocytes (Spur) VBG pH 7.34 VBG pCO2 49 VBG pO2 132 VBG HCO3 27 H VBG O2 Saturation 100.0 VBG Base Excess 1.2 Anion Gap 22 H Estim Creat Clear Calc 15.4 Estimated GFR 12 Random Glucose 111 Calcium 7.7 L D 05/19/22 05/19/22 06:45 06:45 MCV 101.1 H MCH 31.7 MCHC 31.4 RDW 14.1 Plt Count 280 MPV 9.3 L Immature Gran % (Auto) Cancelled Neut % (Auto) Cancelled Lymph % (Auto) Cancelled [place] % (Auto) Cancelled Eos % (Auto) Cancelled Baso % (Auto) Cancelled Lymph # (Auto) Cancelled [place] # (Auto) Cancelled Eos # (Auto) Cancelled Baso # (Auto) Cancelled Abs Immat Gran (auto) Cancelled Absolute Neuts (auto) Cancelled Absolute Nucleated RBC 0.000 Nucleated RBC % (auto) 0.0 Neutrophils % (Manual) 73 Band Neutrophils % 18 H Lymphocytes % (Manual) 4 L Monocytes % (Manual) 3 Metamyelocytes % 1 Myelocytes % 1 Abs Neuts (Manual) 10.6 H Lymphocytes # (Manual) 0.5 L Monocytes # (Manual) 0.3 Metamyelocytes # 0.1 Myelocytes # 0.1 Platelet Estimate NORMAL Plt Morphology Comment NOTE RBC Morphology NOTED Macrocytosis 1+ (5-14) [place] Cells 3+ (>5) Acanthocytes (Spur) 1+ (0-2) VBG pH VBG pCO2 VBG pO2 VBG HCO3 VBG O2 Saturation VBG Base Excess Anion Gap 21 H Estim Creat Clear Calc 14.2 Estimated GFR 11 Random Glucose 121 H Calcium 7.2 L D <Keli Zelaya PA-C - Last Filed: 05/19/22 08:43> Microbiology Microbiology Results: Microbiology 05/17/22 19:37 Blood Culture - Preliminary Blood - Venous Prelim: GPC Gram Stain only 05/17/22 18:07 Blood Culture - Preliminary Blood - Venous No growth after 24 hours. 05/17/22 22:50 Urine Culture - Preliminary Urine clean catch - Urine king top No growth to date. 05/18/22 08:43 Gram Stain - Final Abscess Intra-abdominal <Keli Zelaya PA-C - Last Filed: 05/19/22 08:43> Procedures Date of Service Date of Service: 05/19/22 <Aric Mcneill MD - Last Filed: 05/19/22 09:11> Progress Note: A&P Assessment and plan (1) SIRS (systemic inflammatory response syndrome): Status: Acute <Keli Zelaya PA-C - Last Filed: 05/19/22 08:43> (2) Perforated diverticulum of large intestine: Status: Acute <Keli Zelaya PA-C - Last Filed: 05/19/22 08:43> (3) LILIANA (acute kidney injury): Status: Acute <CAESAR Villalobos Last Filed: 05/19/22 08:43> Assessment and Plan: 71 year old male admitted for perforated diverticulitis now POD #1 s/p nimo procedure. C/o nausea and abdominal pain this morning. Was not given scheduled ofirmev overnight because patient was sleeping per RN notes. VSS. Abd soft with appropriate post op tenderness, dressing intact, stoma without output. Await ostomy function. Cont IV abx. Clears as tolerated. Pain management. Cont cason. OOB to recliner, IS use. Hospitalists following for multiple medical comorbidities, renal functioning worsening this am. Nephrology following- possible central line and dialysis today. Appreciate input. <Keli Zelaya PA-C - Last Filed: 05/19/22 08:43> 71 year old male admitted for perforated diverticulitis now POD #1 s/p nimo procedure. C/o nausea and abdominal pain this morning. Was not given scheduled ofirmev overnight because patient was sleeping per RN notes. VSS. Abd soft with appropriate post op tenderness, dressing intact, stoma without output. Await ostomy function. Cont IV abx. Clears as tolerated. Pain management. Cont cason. OOB to recliner, IS use. Hospitalists following for multiple medical comorbidities, renal functioning worsening this am. Nephrology following- possible central line and dialysis today. Appreciate input. Patient seen and examined independently. A concur with the above assessment and plan. Worsening of the patient is baseline dementia possibly related as a result of general anesthesia and electrolyte imbalance. Appreciate Nephrology input. <Airc Mcneill MD - Last Filed: 05/19/22 09:11> Time Spent With Patient Time: Total time managing care of this patient today ____ minutes. <Keli Zelaya PA-C - Last Filed: 05/19/22 08:43> Quality Stroke Does the patient have a stroke diagnosis?: No <Keli Zelaya PA-C - Last Filed: 05/19/22 08:43> VTE Prior VTE?: No <Keli Zelaya PA-C - Last Filed: 05/19/22 08:43> VTE Risk Level:: Surgical - high <Keil Zelaya PA-C - Last Filed: 05/19/22 08:43> VTE Device Contraindication: N/A - Device Ordered <Keli Zelaya PA-C - Last Filed: 05/19/22 08:43> VTE Drug Contraindication: N/A - Med Ordered <Keli Zelaya PA-C - Last Filed: 05/19/22 08:43>
--- NOTE | 2022-05-19 09:37 | MHC.CM.PN ---
pt lives with had no previous servcies is covid vax x 4 has own ride home dc plan home no servceis
[2022-05-19 10:14] LABS: HBS Num1 0.37 mIU/mL (0-7.99); HBc Num1 0.09 S/CO (0.00-0.79); HBsAGNum1 0.63 S/CO (0.00-0.99); Hepatitis B Core Antibody Nonreactive (Nonreactive); Hepatitis B Surface Antigen Negative (Negative); ~Hepatitis B Surface Antibody NONREACTIVE (Nonreactive)
[2022-05-19] MEDS: Sodium Zirconium Cyclosilicate 10 GM POWD.PACK PO (11:19)
[2022-05-19] MEDS: Acetaminophen 1,000 MG/100 ML PIGGYBACK 400 MG IV ×2 (11:19→15:48)
--- NOTE | 2022-05-19 11:27 | P.PNIM_ITS ---
Subjective Subjective Date of Service: 05/19/22 Interval History: seen and examined this morning follow up for perforated diverticulitis, LILIANA no overnight events patient awake, alert, confused this am abdominal pain under adequate control Review of Systems Review of Systems: Yes all other systems are reviewed and are negative Constitutional Constitutional: Denies chills and Denies fever(s) Cardiovascular Cardiovascular: Denies chest pain and Denies dyspnea Respiratory Respiratory: Denies dyspnea Gastrointestinal Gastrointestinal: Reports abdominal pain Physical Exam Vital Signs: Vital Signs: Last Vital Signs Temp 98.3 F 05/19/22 07:44 Pulse 95 05/19/22 07:44 Resp 16 05/19/22 07:44 BP 130/60 05/19/22 07:44 Pulse Ox 95 05/19/22 07:44 O2 Del Method 05/19/22 07:44 O2 Flow Rate 5 05/19/22 07:44 BMI result Body Mass Index 31.9 Const: Nutritional Appearance: overweight Resp: Other: decreased respiratory effort, diminished breath sounds Cardio: Rate: regular rate Heart sounds: S1 normal heart sound present and S2 normal heart sound present GI: Other: midline abdominal incision with c/d/i dressing; softly distended, avis- incisional tenderness; colostomy with min output : Other: cason in place draining yellow urine Neuro: Other: able to move all 4 extremities; sleepy,difficult for full neuro eval, following commands, tongue midline, face symmetrical. no focal deficits apprecitated Objective Data Active Medications Amantadine HCl (Amantadine Hcl 100 Mg Capsule) 100 mg PO Q2D [facility] Last Admin: 05/18/22 17:29 Dose: 100 mg Documented By: JUSTICE Baclofen (Baclofen 20 Mg Tablet) 20 mg PO BID PRN PRN Reason: pain (scale score 4-6) Buspirone HCl (Buspirone Hcl 10 Mg Tablet) 10 mg PO BID PRN PRN Reason: Anxiety Carbidopa/Levodopa (Carbidopa/Levodopa 25/100 Tablet) 1 tab PO QID [facility] Last Admin: 05/19/22 07:55 Dose: 1 tab Documented By: ASHISH Diltiazem HCl (Diltiazem Hcl Cd 240 Mg Cap.Er.Deg) 240 mg PO DAILY [facility]; Protocol Last Admin: 05/19/22 07:57 Dose: 240 mg Documented By: ASHISH Donepezil HCl (Donepezil Hcl 10 Mg Tablet) 10 mg PO BEDTIME [facility] Last Admin: 05/18/22 20:47 Dose: 10 mg Documented By: CONSTANZA Duloxetine HCl (Duloxetine Hcl 60 Mg Capsule.) 60 mg PO DAILY [facility] Last Admin: 05/19/22 07:56 Dose: 60 mg Documented By: ASHISH Finasteride (Finasteride 5 Mg Tablet) 5 mg PO DAILY [facility] Last Admin: 05/19/22 07:57 Dose: 5 mg Documented By: ASHISH Fluticasone Propionate (Fluticasone Propionate Nasal 16 Gm [place]) 1 spray NOSTRIL-B BID [facility] Last Admin: 05/18/22 21:00 Dose: Not Given Documented By: CONSTANZA Non-Admin Reason: Med Not Available Hydromorphone HCl (Hydromorphone Hcl 0.5 Mg/0.5 Ml Syringe) 0.5 mg IVPUSH Q3H PRN; Protocol PRN Reason: Pain, Severe (Pain Scale 7-10) Last Admin: 05/19/22 06:13 Dose: 0.5 mg Documented By: CARIE Metronidazole (Flagyl) 500 mg in 100 mls @ 100 mls/hr IV Q8H [facility] Last Admin: 05/19/22 06:13 Dose: 100 mls/hr Documented By: CARIE Levofloxacin (Levaquin) 750 mg in 150 mls @ 100 mls/hr IV Q48H [facility] Levothyroxine Sodium (Levothyroxine Sodium 50 Mcg Tablet) 50 mcg PO DAILY@0600 [facility] Last Admin: 05/19/22 06:13 Dose: 50 mcg Documented By: CARIE Lidocaine (Lidocaine 4 % Patch Adh..Patch) 1 patch TRANSDERMA DAILY [facility] Last Admin: 05/19/22 07:54 Dose: 1 patch Documented By: ASHISH Magnesium Hydroxide (Milk Of Magnesia 30 Ml Oral.Susp) 30 ml PO DAILY PRN PRN Reason: Constipation Memantine (Memantine Hcl 5 Mg Tablet) 5 mg PO BID [facility] Last Admin: 05/19/22 07:56 Dose: 5 mg Documented By: ASHISH Omeprazole (Omeprazole 20 Mg Capsule.) 20 mg PO DAILY@0630 [facility] Last Admin: 05/19/22 06:13 Dose: 20 mg Documented By: CARIE Ondansetron HCl (Ondansetron Hcl 4 Mg/2 Ml Vial) 4 mg IVPUSH Q8H PRN PRN Reason: Nausea and Vomiting Last Admin: 05/19/22 08:01 Dose: 4 mg Documented By: ASHISH Pharmacy Consult (Consult Rx Perform Med Rec) 1 each MISCELLANE ONCE PRN PRN Reason: Consult order Pregabalin (Pregabalin 150 Mg Capsule) 150 mg PO BID [facility] Last Admin: 05/19/22 07:56 Dose: 150 mg Documented By: ASHISH Ropinirole HCl (Ropinirole Hcl 2 Mg Tablet) 6 mg PO DAILY@1200 [facility] Last Admin: 05/18/22 17:19 Dose: 6 mg Documented By: JUSTICE Ropinirole HCl (Ropinirole Hcl 2 Mg Tablet) 12 mg PO BEDTIME [facility] Last Admin: 05/18/22 20:48 Dose: 12 mg Documented By: CONSTANZA Sodium Chloride (0.9 % Sodium Chloride Flush 3 Ml Syringe) 3 ml IVFLUSH QSHIFT [facility] Last Admin: 05/19/22 07:53 Dose: Not Given Documented By: ASHISH Non-Admin Reason: IV Running Tamsulosin HCl (Tamsulosin Hcl 0.4 Mg Capsule) 0.4 mg PO BID [facility] Last Admin: 05/19/22 07:56 Dose: 0.4 mg Documented By: ASHISH Tizanidine HCl (Tizanidine Hcl 4 Mg Tablet) 4 mg PO DAILY PRN PRN Reason: muscle spasticity Trazodone HCl (Trazodone Hcl 100 Mg Tablet) 300 mg PO BEDTIME PRN PRN Reason: insomnia Last Admin: 05/18/22 20:59 Dose: 300 mg Documented By: ANTOIC Labs 05/19/22 06:45 05/19/22 06:45 Labs: Laboratory Results - last 24 hr 05/18/22 05/18/22 05/18/22 17:29 17:29 17:41 MCV 102.4 H MCH 32.4 MCHC 31.6 RDW 13.9 Plt Count 242 MPV 9.3 L Immature Gran % (Auto) Neut % (Auto) Lymph % (Auto) [place] % (Auto) Eos % (Auto) Baso % (Auto) Lymph # (Auto) [place] # (Auto) Eos # (Auto) Baso # (Auto) Abs Immat Gran (auto) Absolute Neuts (auto) Absolute Nucleated RBC 0.000 Nucleated RBC % (auto) 0.0 Neutrophils % (Manual) Band Neutrophils % Lymphocytes % (Manual) Monocytes % (Manual) Metamyelocytes % Myelocytes % Abs Neuts (Manual) Lymphocytes # (Manual) Monocytes # (Manual) Metamyelocytes # Myelocytes # Platelet Estimate Plt Morphology Comment RBC Morphology Macrocytosis [place] Cells Acanthocytes (Spur) VBG pH 7.34 VBG pCO2 49 VBG pO2 132 VBG HCO3 27 H VBG O2 Saturation 100.0 VBG Base Excess 1.2 Anion Gap 22 H Estim Creat Clear Calc 15.4 Estimated GFR 12 Random Glucose 111 Calcium 7.7 L D Hep Bs Antigen Hep Bs Antibody Hep B Core Total Ab 05/19/22 05/19/22 05/19/22 06:45 06:45 09:14 MCV 101.1 H MCH 31.7 MCHC 31.4 RDW 14.1 Plt Count 280 MPV 9.3 L Immature Gran % (Auto) Cancelled Neut % (Auto) Cancelled Lymph % (Auto) Cancelled [place] % (Auto) Cancelled Eos % (Auto) Cancelled Baso % (Auto) Cancelled Lymph # (Auto) Cancelled [place] # (Auto) Cancelled Eos # (Auto) Cancelled Baso # (Auto) Cancelled Abs Immat Gran (auto) Cancelled Absolute Neuts (auto) Cancelled Absolute Nucleated RBC 0.000 Nucleated RBC % (auto) 0.0 Neutrophils % (Manual) 73 Band Neutrophils % 18 H Lymphocytes % (Manual) 4 L Monocytes % (Manual) 3 Metamyelocytes % 1 Myelocytes % 1 Abs Neuts (Manual) 10.6 H Lymphocytes # (Manual) 0.5 L Monocytes # (Manual) 0.3 Metamyelocytes # 0.1 Myelocytes # 0.1 Platelet Estimate NORMAL Plt Morphology Comment NOTE RBC Morphology NOTED Macrocytosis 1+ (5-14) [place] Cells 3+ (>5) Acanthocytes (Spur) 1+ (0-2) VBG pH VBG pCO2 VBG pO2 VBG HCO3 VBG O2 Saturation VBG Base Excess Anion Gap 21 H Estim Creat Clear Calc 14.2 Estimated GFR 11 Random Glucose 121 H Calcium 7.2 L D Hep Bs Antigen Negative Hep Bs Antibody NONREACTIVE Hep B Core Total Ab Nonreactive Microbiology Microbiology Results: Microbiology 05/17/22 19:37 Blood Culture - Preliminary Blood - Venous Prelim: GPC Gram Stain only 05/17/22 22:50 Urine Culture - Final Urine clean catch - Urine king top No growth. 05/18/22 08:43 Gram Stain - Final Abscess Intra-abdominal Routine Culture - Preliminary Culture in progress. 05/17/22 18:07 Blood Culture - Preliminary Blood - Venous No growth after 24 hours. Assessment and Plan (1) Perforated diverticulum of large intestine: Status: Acute (2) LILIANA (acute kidney injury): Status: Acute Plan This is a 71 year old male with history of Parkinson's disease, chronic back pain, HTN, BPH, hypothyroidism, recent admission for PNA and fusobacterium bacteremia who presented to the ED with abdominal pain found to have perforated diverticulitis with intraabdominal abscess, LILIANA s/p exploratory laparotomy/Milla procedure perforated diverticulitis/perotonitis/abdominal abscess s/p ex lab, Milla procedure 2/2 management per surgical team follow intra-abdominal abscess cultures continue IV levaquin, flagyl- can consider changing levquin to 500 q48 based on current renal function LILIANA creatinine continues to rise, up to 5.08 today no obstruction on imaging. likely ATN from r/t infection, renal hypoperfusion multiple sedating medications that require dose adjustments; adjustments made nephrology following, recs appreciated, plan for temp HD catheter placement by IR and HD today and tomorrow will d/c IVF follow BMP, UO closely Hyperkalemia dose of lokelma given 2/2, will repeat again today follow BMP Bacteremia 1/2 BCx growing GPC ? contaminant will dose empiric vanco after HD further abx based on culture results toxic metabolic encaphalopathy r/t acute infection, LILIANA, multiple sedating meds brain CT negative Urine culture negative VBG ok chronic pain pain/RLS on multiple medications baclofen, duloxetine on hold pregabalin, tizanidine dose decreased continue requip adjust med doses based on renal function Parksinon's disease/dementia namenda, amantadine dose decreased continue aricept, sinemet adjust med doses based on renal function BPH cason in place continue proscar, flomax HTN continue diltiezem hold lisinopril FRANCES not complaint with CPAP at baseline Thank you for allowing us to participate in the care of this patient. we will follow along with you attending - dr. us Time Spent With Patient Time: Total time managing care of this patient today ____ minutes. Quality Stroke Does the patient have a stroke diagnosis?: No VTE Prior VTE?: No VTE Risk Level:: Surgical - high VTE Device Contraindication: N/A - Device Ordered VTE Drug Contraindication: N/A - Med Ordered
--- NOTE | 2022-05-19 12:19 | HO.POSTANES ---
Post Anesthesia Evaluation Post Anesthesia Evaluation Vital Signs: Vital Signs Temp Pulse Resp BP Pulse Ox O2 Del Method O2 Flow Rate 05/19/22 07:44 98.3 F 95 16 130/60 95 Nasal Cannula 5 05/19/22 03:26 98.6 F 90 20 110/59 L 97 Nasal Cannula 5 Anesthesia: General Endotracheal-GETA Mental Status: Awake (confused) Pain Control: Satisfactory (complains of pain) Nausea/Vomiting: Mild Hydration: Adequate Anesthesia-Related Issues: No Anes. Related Issues
[2022-05-19] MEDS: LORazepam 0.5 MG TABLET PO (12:33)
[2022-05-19] MEDS: TiZANidine HCL 4 MG TABLET PO (13:02)
[2022-05-19] MEDS: Fluticasone Propionate Nasal 16 GM SPRAY 1 SPRAY NOSTRIL-B (13:03)
[2022-05-19] MEDS: rOPINIRole HCL 2 MG TABLET 6 MG PO (13:03)
--- NOTE | 2022-05-19 13:53 | PM.CCN ---
Critical Care Event Note Summary Date of Service: 05/19/22 Code activated: No Narrative: 71-year-old gentleman status post Milla procedure for perforated diverticulitis now with worsening renal indices. Non oliguric. Potassium improving. In my opinion, does not require dialysis at this time. Suggest diuretic challenge with Bumex 1 mg IV, if not improving, will transfer to intensive care unit for further management. Discussed with consulting hospitalist. Critical Care Time (minutes): 0
[2022-05-19] MEDS: Bumetanide 1 MG/4 ML VIAL IVPUSH (14:42)
[2022-05-19 15:26] VITALS: BP 132/72; PULSE 102; RESP 18; TEMP 37; O2SAT 98
[2022-05-19 20:13] VITALS: PULSE 102; RESP 19; O2SAT 90
--- NOTE | 2022-05-19 22:22 | PC.NURSE ---
Pt being very resistive to care, yelling out do not touch me , stating he needs help but not stating with what. Calling 911 repeatedly from his cell phone. Mult kayla RN, aide and security to room trying to educate pt on situation. Was able to get cell phone on table. Pt continues to try to call police on the call rivera harriet. Pt yelling at staff, doesnt want us touching him at all or going near him when offering help. Took off nasal cannula. RN was able to put on o2 sat- sat 90% on RA, HR 100-105. Pt stating he is worried about numbers , educated pt on how his o2 and night time meds would help and he would be worse without them. Still refusing all. aware. Will continue to re-educate, reorient and reassess.
[2022-05-20] VITALS: RESP 18
--- NOTE | 2022-05-20 04:45 | MHC.PIE ---
P COMBATTIVE,CONFUSED I.PT REMAINS CONFUSED,AGITATED,COMBATTIVE.ATTEMPTED CARE AND TO GIVE SCHEDULED MEDS.PT SLAPPED THIS NURSE'S HAND AND STATED GET OUT .DR.VALI DE LA ROSA.MD STATES TO LET PT BE AND WILL DEFER TO AM MD. DAVIS TO MONITOR.
--- NOTE | 2022-05-20 06:30 | MHC.PIE ---
P.INCREASED CONFUSION/AGITATION I.PT NOTED TO HAVE INCREASED AGITATION,COMBATTIVE,KICKING,ATTEMPTING TO BITE STAFF,SPITTING,TRYING TO GRAB STAFF.PLACED IN SOFT RESTRAINTS BY NURSING TIE UP WORKER.DR SAHU NOTIFIED STAT AND UP TO FLOOR TO ASSESS PATIENT.STAT ZYPREXA 10 MG IM ORDERED AND RESTRAINT FORM SIGNED. E.CONT TO ASSESS
[2022-05-20 06:40] LABS: Glucose, Whole Blood 116 mg/dL (60-115)
[2022-05-20] MEDS: OLANZapine 10 MG VIAL IM ×2 (06:54→13:39)
[2022-05-20 08:00] VITALS: BP 148/68; PULSE 104; RESP 18; TEMP 36.9; O2SAT 90
[2022-05-20 08:16] LABS: Hematocrit 36.4 % (42.0-52.0); Hemoglobin 11.6 g/dl (14.0-18.0); Mean Corpuscular HGB Conc 31.9 g/dl (31.0-36.0); Mean Corpuscular Hemoglobin 31.5 pg (27.0-33.0); Mean Corpuscular Volume 98.9 fL (80.0-98.0); Mean Platelet Volume 9.3 fL (9.4-12.4); Platelet Count 294 X10*3/uL (160-400); Red Blood Count 3.68 X10*6/uL (4.60-5.80); Red Cell Distribution Width 14.1 % (11.0-16.0); White Blood Count 14.9 X10*3/uL (4.8-10.8)
[2022-05-20] MEDS: metroNIDAZOLE/NS 500 MG/100 ML PIGGYBACK 100 MG IV ×2 (08:32→16:26)
[2022-05-20 08:38] LABS: Anion Gap 24 (12-20); Blood Urea Nitrogen 92 mg/dL (9-16); Calcium 7.7 mg/dL (8.4-10.2); Carbon Dioxide 18 mmol/L (22-29); Chloride 106 mmol/L (96-108); Creatinine Clr Calc Pharmacy 14.3; Estimated Glomerular Filt Rate 11; Glucose Random 114 mg/dL (60-115); Potassium 4.9 mmol/L (3.3-5.1); Sodium 143 mmol/L (135-145)
[2022-05-20] MEDS: 0.9 % Sodium Chloride Flush 3 ML SYRINGE IVFLUSH (08:39)
[2022-05-20] MEDS: Acetaminophen 1,000 MG/100 ML PIGGYBACK 400 MG IV ×3 (09:48→22:17)
--- NOTE | 2022-05-20 10:45 | PM.PNGS ---
Subjective Subjective Date of Service: 05/20/22 Patient reports: still having pain Interval history: The patient is seen in coverage for Dr. Mcneill Patient is somewhat belligerent and denies flatus, chest pain, difficulty breathing or shortness of breath. He was reluctant to let me examine him. He did agree to let me look at his abdomen Physical Exam Vital Signs: Vital Signs: Last Vital Signs Temp 98.4 F 05/20/22 08:00 Pulse 104 H 05/20/22 08:00 Resp 18 05/20/22 08:00 BP 148/68 H 05/20/22 08:00 Pulse Ox 90 L 05/20/22 08:00 O2 Del Method 05/20/22 08:00 O2 Flow Rate 4 05/19/22 15:26 BMI result Body Mass Index 31.9 On exam he is nontoxic He is in no acute respiratory distress Midline abdominal dressing is clean dry and intact. Ostomy has no stool nor gas and is a little dusky/hemorrhagic as to be expected. Objective Data Active Medications Amantadine HCl (Amantadine Hcl 100 Mg Capsule) 100 mg PO Q2D [facility] Last Admin: 05/18/22 17:29 Dose: 100 mg Documented By: JUSTICE Baclofen (Baclofen 20 Mg Tablet) 20 mg PO BID PRN PRN Reason: pain (scale score 4-6) Buspirone HCl (Buspirone Hcl 10 Mg Tablet) 10 mg PO BID PRN PRN Reason: Anxiety Carbidopa/Levodopa (Carbidopa/Levodopa 25/100 Tablet) 1 tab PO QID [facility] Last Admin: 05/20/22 08:53 Dose: Not Given Documented By: JOSÉ MANUEL Non-Admin Reason: Patient Refused Diltiazem HCl (Diltiazem Hcl Cd 240 Mg Cap.Er.Deg) 240 mg PO DAILY [facility]; Protocol Last Admin: 05/20/22 08:53 Dose: Not Given Documented By: JOSÉ MANUEL Non-Admin Reason: Patient Refused Donepezil HCl (Donepezil Hcl 10 Mg Tablet) 10 mg PO BEDTIME [facility] Last Admin: 05/19/22 21:58 Dose: Not Given Documented By: JUN Non-Admin Reason: Patient Refused Duloxetine HCl (Duloxetine Hcl 30 Mg Capsule.) 30 mg PO DAILY [facility] Last Admin: 05/20/22 08:53 Dose: Not Given Documented By: JOSÉ MANUEL Non-Admin Reason: Patient Refused Finasteride (Finasteride 5 Mg Tablet) 5 mg PO DAILY [facility] Last Admin: 05/20/22 08:54 Dose: Not Given Documented By: JOSÉ MANUEL Non-Admin Reason: Patient Refused Fluticasone Propionate (Fluticasone Propionate Nasal 16 Gm [place]) 1 spray NOSTRIL-B BID [facility] Last Admin: 05/20/22 08:54 Dose: Not Given Documented By: JOSÉ MANUEL Non-Admin Reason: Patient Refused Hydromorphone HCl (Hydromorphone Hcl 0.5 Mg/0.5 Ml Syringe) 0.5 mg IVPUSH Q3H PRN; Protocol PRN Reason: Pain, Severe (Pain Scale 7-10) Last Admin: 05/19/22 14:42 Dose: 0.5 mg Documented By: INDU Metronidazole (Flagyl) 500 mg in 100 mls @ 100 mls/hr IV Q8H [facility] Last Infusion: 05/20/22 09:53 Dose: 0 mls/hr Documented By: JOSÉ MANUEL Levofloxacin (Levaquin) 750 mg in 150 mls @ 100 mls/hr IV Q48H [facility] Last Admin: 05/19/22 21:51 Dose: Not Given Documented By: JUN Non-Admin Reason: Patient Refused Vancomycin HCl (Vancomycin/Ns) 2,000 mg in 520 mls @ 260 mls/hr IV ONCE ONE Stop: 05/19/22 19:59 Acetaminophen (Ofirmev) 1,000 mg in 100 mls @ 400 mls/hr IV Q6H [facility] Last Admin: 05/20/22 09:48 Dose: 400 mls/hr Documented By: JOSÉ MANUEL Levothyroxine Sodium (Levothyroxine Sodium 50 Mcg Tablet) 50 mcg PO DAILY@0600 [facility] Last Admin: 05/20/22 06:42 Dose: Not Given Documented By: GIL Non-Admin Reason: Patient Refused Lidocaine (Lidocaine 4 % Patch Adh..Patch) 1 patch TRANSDERMA DAILY [facility] Last Admin: 05/20/22 08:54 Dose: Not Given Documented By: JOSÉ MANUEL Non-Admin Reason: Patient Refused Magnesium Hydroxide (Milk Of Magnesia 30 Ml Oral.Susp) 30 ml PO DAILY PRN PRN Reason: Constipation Memantine (Memantine Hcl 5 Mg Tablet) 5 mg PO BID [facility] Last Admin: 05/20/22 08:54 Dose: Not Given Documented By: JOSÉ MANUEL Non-Admin Reason: Patient Refused Omeprazole (Omeprazole 20 Mg Capsule.Dr) 20 mg PO DAILY@0630 [facility] Last Admin: 05/20/22 06:42 Dose: Not Given Documented By: GIL Non-Admin Reason: Patient Refused Ondansetron HCl (Ondansetron Hcl 4 Mg/2 Ml Vial) 4 mg IVPUSH Q8H PRN PRN Reason: Nausea and Vomiting Last Admin: 05/19/22 14:51 Dose: 4 mg Documented By: INDU Pharmacy Consult (Consult Rx Perform Med Rec) 1 each MISCELLANE ONCE PRN PRN Reason: Consult order Pregabalin (Pregabalin 150 Mg Capsule) 150 mg PO BID [facility] Last Admin: 05/20/22 08:54 Dose: Not Given Documented By: JOSÉ MANUEL Non-Admin Reason: Patient Refused Ropinirole HCl (Ropinirole Hcl 2 Mg Tablet) 6 mg PO DAILY@1200 [facility] Last Admin: 05/19/22 13:03 Dose: 6 mg Documented By: ASHISH Ropinirole HCl (Ropinirole Hcl 2 Mg Tablet) 12 mg PO BEDTIME [facility] Last Admin: 05/19/22 21:58 Dose: Not Given Documented By: JUN Non-Admin Reason: Patient Refused Sodium Chloride (0.9 % Sodium Chloride Flush 3 Ml Syringe) [address] [facility] Last Admin: 05/20/22 08:39 Dose: 3 ml Documented By: JOSÉ MANUEL Tamsulosin HCl (Tamsulosin Hcl 0.4 Mg Capsule) 0.4 mg PO BID [facility] Last Admin: 05/20/22 08:54 Dose: Not Given Documented By: JOSÉ MANUEL Non-Admin Reason: Patient Refused Tizanidine HCl (Tizanidine Hcl 4 Mg Tablet) 4 mg PO DAILY PRN PRN Reason: muscle spasticity Last Admin: 05/19/22 13:02 Dose: 4 mg Documented By: ASHISH Trazodone HCl (Trazodone Hcl 100 Mg Tablet) 300 mg PO BEDTIME PRN PRN Reason: insomnia Last Admin: 05/18/22 20:59 Dose: 300 mg Documented By: CONSTANZA Labs 05/20/22 07:43 05/20/22 07:45 Labs: Laboratory Results - last 24 hr 05/19/22 05/20/22 05/20/22 09:14 06: 07:43 MCV 98.9 H MCH 31.5 MCHC 31.9 RDW 14.1 Plt Count 294 MPV 9.3 L Absolute Nucleated RBC 0.000 Nucleated RBC % (auto) 0.0 Anion Gap Estim Creat Clear Calc Estimated GFR POC Glucose 116 H Random Glucose Calcium Hep Bs Antigen Negative Hep Bs Antibody NONREACTIVE Hep B Core Total Ab Nonreactive 05/20/22 07:45 MCV MCH MCHC RDW Plt Count MPV Absolute Nucleated RBC Nucleated RBC % (auto) Anion Gap 24 H Estim Creat Clear Calc 14.3 Estimated GFR 11 POC Glucose Random Glucose 114 Calcium 7.7 L D Hep Bs Antigen Hep Bs Antibody Hep B Core Total Ab Microbiology Microbiology Results: Microbiology 05/18/22 08:43 Gram Stain - Final Abscess Intra-abdominal Routine Culture - Final 05/17/22 19:37 Blood Culture - Final Blood - Venous Coag negative Staphylococcus 05/17/22 18:07 Blood Culture - Preliminary Blood - Venous No growth after 48 hours. 05/17/22 22:50 Urine Culture - Final Urine clean catch - Urine king top No growth. Procedures Date of Service Date of Service: 05/20/22 Progress Note: A&P Assessment and plan (1) SIRS (systemic inflammatory response syndrome): Status: Acute (2) Perforated diverticulum of large intestine: Status: Acute (3) Acute abdomen: Status: Acute (4) Diverticulitis: Status: Acute (5) LILIANA (acute kidney injury): Status: Acute Plan Continue present management including bowel rest and IV antibiotics Await GI function Nephrology input pending Time Spent With Patient Time: Total time managing care of this patient today ____ minutes. Quality Stroke Does the patient have a stroke diagnosis?: No VTE Prior VTE?: No VTE Risk Level:: Surgical - high VTE Device Contraindication: N/A - Device Ordered VTE Drug Contraindication: N/A - Med Ordered
--- NOTE | 2022-05-20 11:04 | P.PNNP_ITS ---
Subjective Subjective Date of Service: 05/20/22 Interval history: follow up for perforated diverticulitis, LILIANA Yesterday made plans for dialysis access and dialysis. Patient became progres sive altered and combative. IR refused temp line. Managed overnight conservatively. Today with >1L UOP BUn/Cr unchanged, at peak hyperkalemia resolved. Acidosis stable. Patient continues to be quite delirius, hyperactive. Pulled cason out this AM Physical Exam Vital Signs: Vital Signs: Last Vital Signs Temp 98.4 F 05/20/22 08:00 Pulse 104 H 05/20/22 08:00 Resp 18 05/20/22 08:00 BP 148/68 H 05/20/22 08:00 Pulse Ox 90 L 05/20/22 08:00 O2 Del Method 05/20/22 08:00 O2 Flow Rate 4 05/19/22 15:26 BMI result Body Mass Index 31.9 Const: General: confusion Orientation/consciousness: confusion Resp: Other: decreased respiratory effort, diminished breath sounds Cardio: Rate: regular rate Rhythm: regular rhythm Heart sounds: S1 normal heart sound present GI: Other: midline abdominal incision with c/d/i dressing; softly distended, avis- incisional tenderness Neuro: General: confusion Extrem: General: Yes normal to inspection and Yes no clubbing, cyanosis or edema Objective Data Labs 05/20/22 07:43 05/20/22 07:45 Labs: Laboratory Results - last 24 hr 05/20/22 05/20/22 05/20/22 06:23 07:43 07:45 WBC 14.9 H RBC 3.68 L Hgb 11.6 L Hct 36.4 L MCV 98.9 H MCH 31.5 MCHC 31.9 RDW 14.1 Plt Count 294 MPV 9.3 L Absolute Nucleated RBC 0.000 Nucleated RBC % (auto) 0.0 Sodium 143 Potassium 4.9 Chloride 106 Carbon Dioxide 18 L Anion Gap 24 H BUN 92 H Creatinine 5.05 H* Estim Creat Clear Calc 14.3 Estimated GFR 11 POC Glucose 116 H Random Glucose 114 Calcium 7.7 L D Microbiology Microbiology Results: Microbiology 05/18/22 08:43 Abscess Intra-abdominal Gram Stain - Final 05/18/22 08:43 Abscess Intra-abdominal Routine Culture - Final 05/17/22 19:37 Blood - Venous Blood Culture - Final Coag negative Staphylococcus 05/17/22 18:07 Blood - Venous Blood Culture - Preliminary No growth after 48 hours. 05/17/22 22:50 Urine clean catch - Urine king top Urine Culture - Final No growth. Procedures Date of Service Date of Service: 05/20/22 Assessment & Plan Assessment and plan (1) LILIANA (acute kidney injury): Status: Acute (2) Perforated diverticulum of large intestine: Status: Acute Plan Mr. Kevan Rivas is a?71-year-old male with past medical history of HTN, HLD, Parkinsons, and Chronic Pain on chronic Naproxen and Opioids who presented to the emergency department with abdominal pain found to have perforated diverticulitis. He underwent exploratory laparotomy/Milla procedure secondary to perforated sigmoid diverticulitis with multiple pelvic abscesses.?Course now complicated by LILIANA, Hyperkalemia and Oliguria all refractory to resuscitation and Abx efforts. Course then complicated by hyperactive delirium complicating a safe temporary dialysis catheter placement. Patient was therefore managed medically with bicarbonate, diuretics. His Acidsois is stable and Hyperkalemia resolved. He is no longer oliguric, but GFR is poor. 1. Non-Oliguric LILIANA baseline Cr 0.6mg/dL Cr rising >5mg/dL CT imaging ruled out obstruction U/A with granular MBC sediment c/w tubular necrosis. Overall I high suspect ATN in the setting of severe sepsis, hemodynamic compromise, renal hypoperfusion, cytokine storm, decreased PO intake and ongoing BID Naproxen Glomerular pathology unlikely AIN cannot be ruled out, but does not necessarily fit the picture Obstruction ruled out Despite poor GFR, UOP responded to diuretics and Hyperkalemia / Acidosis medically temporized. Plan: - will continue conservative / medical measures seeing this ATN through. - Please replace cason - Lokelma again 10g today - Bumex 4mg IV if oliguric. - will f/u labs and UOP progress. If patient declines will move to ICU for temp line and dialysis. Time Spent With Patient Time: Total time managing care of this patient today ____ minutes. Progress Note: Quality Stroke Does the patient have a stroke diagnosis?: No
--- NOTE | 2022-05-20 11:04 | P.PNIM_ITS ---
Subjective Subjective Date of Service: 05/20/22 Interval History: seen and examined this morning follow up for perforated diverticulitis, LILIANA no overnight events confused and combative Review of Systems Review of Systems: Yes all other systems are reviewed and are negative Constitutional Constitutional: Denies chills and Denies fever(s) Cardiovascular Cardiovascular: Denies chest pain and Denies dyspnea Respiratory Respiratory: Denies dyspnea Gastrointestinal Gastrointestinal: Reports abdominal pain Physical Exam Vital Signs: Vital Signs: Last Vital Signs Temp 98.4 F 05/20/22 08:00 Pulse 104 H 05/20/22 08:00 Resp 18 05/20/22 08:00 BP 148/68 H 05/20/22 08:00 Pulse Ox 90 L 05/20/22 08:00 O2 Del Method 05/20/22 08:00 O2 Flow Rate 4 05/19/22 15:26 BMI result Body Mass Index 31.9 Appearing in no acute distress lung sounds are clear to auscultation heart regular rate rhythm, clear S1, S2 positive bowel sounds, abdomen is soft, nontender neuro patient is alert, confused and combative, restraints intact to bilateral wrists Objective Data Active Medications Amantadine HCl (Amantadine Hcl 100 Mg Capsule) 100 mg PO Q2D [facility] Last Admin: 05/18/22 17:29 Dose: 100 mg Documented By: JUSTICE Baclofen (Baclofen 20 Mg Tablet) 20 mg PO BID PRN PRN Reason: pain (scale score 4-6) Buspirone HCl (Buspirone Hcl 10 Mg Tablet) 10 mg PO BID PRN PRN Reason: Anxiety Carbidopa/Levodopa (Carbidopa/Levodopa 25/100 Tablet) 1 tab PO QID [facility] Last Admin: 05/20/22 08:53 Dose: Not Given Documented By: JOSÉ MANUEL Non-Admin Reason: Patient Refused Diltiazem HCl (Diltiazem Hcl Cd 240 Mg Cap.Er.Deg) 240 mg PO DAILY [facility]; Protocol Last Admin: 05/20/22 08:53 Dose: Not Given Documented By: JOSÉ MANUEL Non-Admin Reason: Patient Refused Donepezil HCl (Donepezil Hcl 10 Mg Tablet) 10 mg PO BEDTIME [facility] Last Admin: 05/19/22 21:58 Dose: Not Given Documented By: JUN Non-Admin Reason: Patient Refused Duloxetine HCl (Duloxetine Hcl 30 Mg Capsule.Dr) 30 mg PO DAILY [facility] Last Admin: 05/20/22 08:53 Dose: Not Given Documented By: JOSÉ MANUEL Non-Admin Reason: Patient Refused Finasteride (Finasteride 5 Mg Tablet) 5 mg PO DAILY [facility] Last Admin: 05/20/22 08:54 Dose: Not Given Documented By: JOSÉ MANUEL Non-Admin Reason: Patient Refused Fluticasone Propionate (Fluticasone Propionate Nasal 16 Gm [place]) 1 spray NOSTRIL-B BID [facility] Last Admin: 05/20/22 08:54 Dose: Not Given Documented By: JOSÉ MANUEL Non-Admin Reason: Patient Refused Hydromorphone HCl (Hydromorphone Hcl 0.5 Mg/0.5 Ml Syringe) 0.5 mg IVPUSH Q3H PRN; Protocol PRN Reason: Pain, Severe (Pain Scale 7-10) Last Admin: 05/19/22 14:42 Dose: 0.5 mg Documented By: INDU Metronidazole (Flagyl) 500 mg in 100 mls @ 100 mls/hr IV Q8H [facility] Last Infusion: 05/20/22 09:53 Dose: 0 mls/hr Documented By: JOSÉ MANUEL Levofloxacin (Levaquin) 750 mg in 150 mls @ 100 mls/hr IV Q48H [facility] Last Admin: 05/19/22 21:51 Dose: Not Given Documented By: JUN Non-Admin Reason: Patient Refused Vancomycin HCl (Vancomycin/Ns) 2,000 mg in 520 mls @ 260 mls/hr IV ONCE ONE Stop: 05/19/22 19:59 Acetaminophen (Ofirmev) 1,000 mg in 100 mls @ 400 mls/hr IV Q6H [facility] Last Admin: 05/20/22 09:48 Dose: 400 mls/hr Documented By: JOSÉ MANUEL Levothyroxine Sodium (Levothyroxine Sodium 50 Mcg Tablet) 50 mcg PO DAILY@0600 [facility] Last Admin: 05/20/22 06:42 Dose: Not Given Documented By: GIL Non-Admin Reason: Patient Refused Lidocaine (Lidocaine 4 % Patch Adh..Patch) 1 patch TRANSDERMA DAILY [facility] Last Admin: 05/20/22 08:54 Dose: Not Given Documented By: JOSÉ MANUEL Non-Admin Reason: Patient Refused Magnesium Hydroxide (Milk Of Magnesia 30 Ml Oral.Susp) 30 ml PO DAILY PRN PRN Reason: Constipation Memantine (Memantine Hcl 5 Mg Tablet) 5 mg PO BID [facility] Last Admin: 05/20/22 08:54 Dose: Not Given Documented By: JOSÉ MANUEL Non-Admin Reason: Patient Refused Omeprazole (Omeprazole 20 Mg Capsule.Dr) 20 mg PO DAILY@0630 [facility] Last Admin: 05/20/22 06:42 Dose: Not Given Documented By: GIL Non-Admin Reason: Patient Refused Ondansetron HCl (Ondansetron Hcl 4 Mg/2 Ml Vial) 4 mg IVPUSH Q8H PRN PRN Reason: Nausea and Vomiting Last Admin: 05/19/22 14:51 Dose: 4 mg Documented By: INDU Pharmacy Consult (Consult Rx Perform Med Rec) 1 each MISCELLANE ONCE PRN PRN Reason: Consult order Pregabalin (Pregabalin 150 Mg Capsule) 150 mg PO BID [facility] Last Admin: 05/20/22 08:54 Dose: Not Given Documented By: JOSÉ MANUEL Non-Admin Reason: Patient Refused Ropinirole HCl (Ropinirole Hcl 2 Mg Tablet) 6 mg PO DAILY@1200 [facility] Last Admin: 05/19/22 13:03 Dose: 6 mg Documented By: ASHISH Ropinirole HCl (Ropinirole Hcl 2 Mg Tablet) 12 mg PO BEDTIME [facility] Last Admin: 05/19/22 21:58 Dose: Not Given Documented By: JUN Non-Admin Reason: Patient Refused Sodium Chloride (0.9 % Sodium Chloride Flush 3 Ml Syringe) 3 ml IVFLUSH QSHIFT [facility] Last Admin: 05/20/22 08:39 Dose: 3 ml Documented By: JOSÉ MANUEL Tamsulosin HCl (Tamsulosin Hcl 0.4 Mg Capsule) 0.4 mg PO BID [facility] Last Admin: 05/20/22 08:54 Dose: Not Given Documented By: JOSÉ MANUEL Non-Admin Reason: Patient Refused Tizanidine HCl (Tizanidine Hcl 4 Mg Tablet) 4 mg PO DAILY PRN PRN Reason: muscle spasticity Last Admin: 05/19/22 13:02 Dose: 4 mg Documented By: ASHISH Trazodone HCl (Trazodone Hcl 100 Mg Tablet) 300 mg PO BEDTIME PRN PRN Reason: insomnia Last Admin: 05/18/22 20:59 Dose: 300 mg Documented By: SABAOIC Labs 05/20/22 07:43 05/20/22 07:45 Labs: Laboratory Results - last 24 hr 05/20/22 05/20/22 05/20/22 06:23 07:43 07:45 MCV 98.9 H MCH 31.5 MCHC 31.9 RDW 14.1 Plt Count 294 MPV 9.3 L Absolute Nucleated RBC 0.000 Nucleated RBC % (auto) 0.0 Anion Gap 24 H Estim Creat Clear Calc 14.3 Estimated GFR 11 POC Glucose 116 H Random Glucose 114 Calcium 7.7 L D Microbiology Microbiology Results: Microbiology 05/18/22 08:43 Gram Stain - Final Abscess Intra-abdominal Routine Culture - Final 05/17/22 19:37 Blood Culture - Final Blood - Venous Coag negative Staphylococcus 05/17/22 18:07 Blood Culture - Preliminary Blood - Venous No growth after 48 hours. 05/17/22 22:50 Urine Culture - Final Urine clean catch - Urine king top No growth. Assessment and Plan (1) Perforated diverticulum of large intestine: Status: Acute (2) LILIANA (acute kidney injury): Status: Acute Plan This is a 71 year old male with history of Parkinson's disease, chronic back pain, HTN, BPH, hypothyroidism, recent admission for PNA and fusobacterium bacteremia who presented to the ED with abdominal pain found to have perforated diverticulitis with intraabdominal abscess, LILIANA s/p exploratory laparotomy/Milla procedure toxic metabolic encaphalopathy combative bilateral wrist restraints, zyprexa IM as needed r/t feculent peritonitis, abscess collection, LILIANA, multiple sedating meds brain CT negative Urine culture negative VBG ok perforated diverticulitis/perotonitis/abdominal abscess s/p ex lab, Milla procedure 2/2 management per surgical team follow intra-abdominal abscess cultures continue IV levaquin, flagyl- can consider changing levquin to 500 q48 based on current renal function LILIANA creatinine continues to rise,but down to 5.05 today no obstruction on imaging. likely ATN from r/t infection, renal hypoperfusion nephrology following, recs appreciated, plan for temp HD catheter placement by IR and HD but unable to place due to delirium and combativeness will d/c IVF follow BMP, UO closely discussed with ICU attending, will hold off on dialysis at this time as renal function is slowly trending down and in light of severe encephalopathy Hyperkalemia. Resolved dose of lokelma given 2/2 follow BMP Bacteremia-coag neg staph contaminant stop vancomycin chronic pain pain/RLS on multiple medications baclofen, duloxetine on hold pregabalin, tizanidine dose decreased continue requip adjust med doses based on renal function Parksinon's disease/dementia namenda, amantadine dose decreased continue aricept, sinemet adjust med doses based on renal function BPH cason in place continue proscar, flomax HTN continue diltiezem hold lisinopril FRANCES not complaint with CPAP at baseline Thank you for allowing us to participate in the care of this patient. we will follow along with you attending - dr. us Time Spent With Patient Time: Total time managing care of this patient today ____ minutes. Quality Stroke Does the patient have a stroke diagnosis?: No VTE Prior VTE?: No VTE Risk Level:: Surgical - high VTE Device Contraindication: N/A - Device Ordered VTE Drug Contraindication: N/A - Med Ordered
[2022-05-20 16:00] VITALS: BP 176/87; PULSE 111; RESP 20; TEMP 36.8; O2SAT 96
[2022-05-20 19:00] VITALS: BP 140/103; PULSE 109; RESP 18; TEMP 37; O2SAT 98
--- NOTE | 2022-05-20 19:31 | PC.NURSE ---
Patient in soft restraints, order received from Dione Boogie NP
[2022-05-20 21:00] VITALS: BP 160/86; PULSE 111; RESP 18
[2022-05-20 23:00] VITALS: BP 169/76; PULSE 106; RESP 18; TEMP 36.7; O2SAT 97
[2022-05-21] VITALS: BP 121/78; PULSE 76; RESP 15
[2022-05-21] MEDS: metroNIDAZOLE/NS 500 MG/100 ML PIGGYBACK 100 MG IV ×4 (00:28→22:21)
[2022-05-21] MEDS: 0.9 % Sodium Chloride Flush 3 ML SYRINGE IVFLUSH ×2 (00:36→22:24)
[2022-05-21 01:00] VITALS: BP 121/78; PULSE 96; RESP 18
[2022-05-21 03:15] VITALS: BP 133/60; PULSE 89; RESP 18; TEMP 36.6; O2SAT 99
[2022-05-21 07:43] VITALS: BP 138/80; PULSE 100; RESP 20; TEMP 36.6; O2SAT 83
--- NOTE | 2022-05-21 09:28 | P.PNIM_ITS ---
Subjective Subjective Date of Service: 05/21/22 Interval History: seen and examined this morning follow up for perforated diverticulitis, LILIANA no overnight events confused and combative overnight but much calmer this morning patient stated I apologized to everyone today Review of Systems Review of Systems: Yes all other systems are reviewed and are negative Constitutional Constitutional: Denies chills and Denies fever(s) Cardiovascular Cardiovascular: Denies chest pain and Denies dyspnea Respiratory Respiratory: Denies dyspnea Gastrointestinal Gastrointestinal: Reports abdominal pain Physical Exam Vital Signs: Vital Signs: Last Vital Signs Temp 97.9 F 05/21/22 07:43 Pulse 100 05/21/22 07:43 Resp 20 05/21/22 07:43 BP 138/80 05/21/22 07:43 Pulse Ox 83 L 05/21/22 07:43 O2 Del Method 05/21/22 07:43 O2 Flow Rate 3 05/21/22 07:43 BMI result Body Mass Index 31.9 Appearing in no acute distress lung sounds are clear to auscultation heart regular rate rhythm, clear S1, S2 positive bowel sounds, abdomen is soft, nontender neuro patient is alert, still some confusion Objective Data Active Medications Amantadine HCl (Amantadine Hcl 100 Mg Capsule) 100 mg PO Q2D [facility] Last Admin: 05/20/22 17:17 Dose: Not Given Documented By: JOSÉ MANUEL Non-Admin Reason: Patient Refused Baclofen (Baclofen 20 Mg Tablet) 20 mg PO BID PRN PRN Reason: pain (scale score 4-6) Buspirone HCl (Buspirone Hcl 10 Mg Tablet) 10 mg PO BID PRN PRN Reason: Anxiety Carbidopa/Levodopa (Carbidopa/Levodopa 25/100 Tablet) 1 tab PO QID [facility] Last Admin: 05/20/22 22:22 Dose: Not Given Documented By: ANGÉLICA Non-Admin Reason: NPO Diltiazem HCl (Diltiazem Hcl Cd 240 Mg Cap.Er.Deg) 240 mg PO DAILY [facility]; Protocol Last Admin: 05/20/22 08:53 Dose: Not Given Documented By: JOSÉ MANUEL Non-Admin Reason: Patient Refused Donepezil HCl (Donepezil Hcl 10 Mg Tablet) 10 mg PO BEDTIME [facility] Last Admin: 05/20/22 22:22 Dose: Not Given Documented By: ANGÉLICA Non-Admin Reason: NPO Duloxetine HCl (Duloxetine Hcl 30 Mg Capsule.Dr) 30 mg PO DAILY [facility] Last Admin: 05/20/22 08:53 Dose: Not Given Documented By: JOSÉ MANUEL Non-Admin Reason: Patient Refused Finasteride (Finasteride 5 Mg Tablet) 5 mg PO DAILY [facility] Last Admin: 05/20/22 08:54 Dose: Not Given Documented By: JOSÉ MANUEL Non-Admin Reason: Patient Refused Fluticasone Propionate (Fluticasone Propionate Nasal 16 Gm [place]) 1 spray NOSTRIL-B BID [facility] Last Admin: 05/20/22 22:22 Dose: Not Given Documented By: ANGÉLICA Non-Admin Reason: NPO Hydromorphone HCl (Hydromorphone Hcl 0.5 Mg/0.5 Ml Syringe) 0.5 mg IVPUSH Q3H PRN; Protocol PRN Reason: Pain, Severe (Pain Scale 7-10) Last Admin: 05/19/22 14:42 Dose: 0.5 mg Documented By: INDU Metronidazole (Flagyl) 500 mg in 100 mls @ 100 mls/hr IV Q8H [facility] Last Admin: 05/21/22 08:01 Dose: 100 mls/hr Documented By: BENEDICT Levofloxacin (Levaquin) 750 mg in 150 mls @ 100 mls/hr IV Q48H [facility] Last Admin: 05/19/22 21:51 Dose: Not Given Documented By: JUN Non-Admin Reason: Patient Refused Acetaminophen (Ofirmev) 1,000 mg in 100 mls @ 400 mls/hr IV Q6H [facility] Last Admin: 05/21/22 03:45 Dose: Not Given Documented By: ANGÉLICA Non-Admin Reason: over max dose Dextrose/Sodium Chloride (D5ns) 1,000 mls @ 80 mls/hr IVCONT .[id number] [facility] Levothyroxine Sodium (Levothyroxine Sodium 50 Mcg Tablet) 50 mcg PO DAILY@0600 [facility] Last Admin: 05/21/22 05:11 Dose: Not Given Documented By: ANGÉLICA Non-Admin Reason: NPO Lidocaine (Lidocaine 4 % Patch Adh..Patch) 1 patch TRANSDERMA DAILY [facility] Last Admin: 05/20/22 08:54 Dose: Not Given Documented By: JOSÉ MANUEL Non-Admin Reason: Patient Refused Magnesium Hydroxide (Milk Of Magnesia 30 Ml Oral.Susp) 30 ml PO DAILY PRN PRN Reason: Constipation Memantine (Memantine Hcl 5 Mg Tablet) 5 mg PO BID [facility] Last Admin: 05/20/22 22:22 Dose: Not Given Documented By: ANGÉLICA Non-Admin Reason: NPO Omeprazole (Omeprazole 20 Mg Capsule.Dr) 20 mg PO DAILY@0630 [facility] Last Admin: 05/21/22 05:11 Dose: Not Given Documented By: ANGÉLICA Non-Admin Reason: NPO Ondansetron HCl (Ondansetron Hcl 4 Mg/2 Ml Vial) 4 mg IVPUSH Q8H PRN PRN Reason: Nausea and Vomiting Last Admin: 05/19/22 14:51 Dose: 4 mg Documented By: INDU Pharmacy Consult (Consult Rx Perform Med Rec) 1 each MISCELLANE ONCE PRN PRN Reason: Consult order Pregabalin (Pregabalin 150 Mg Capsule) 150 mg PO BID [facility] Last Admin: 05/20/22 22:22 Dose: Not Given Documented By: ANGÉLICA Non-Admin Reason: NPO Ropinirole HCl (Ropinirole Hcl 2 Mg Tablet) 6 mg PO DAILY@1200 [facility] Last Admin: 05/20/22 14:08 Dose: Not Given Documented By: JOSÉ MANUEL Non-Admin Reason: Patient Refused Ropinirole HCl (Ropinirole Hcl 2 Mg Tablet) 12 mg PO BEDTIME [facility] Last Admin: 05/20/22 22:22 Dose: Not Given Documented By: ANGÉLICA Non-Admin Reason: NPO Sodium Chloride (0.9 % Sodium Chloride Flush 3 Ml Syringe) 3 ml IVFLUSH QSHIFT [facility] Last Admin: 05/21/22 00:36 Dose: 3 ml Documented By: ANGÉLICA Tamsulosin HCl (Tamsulosin Hcl 0.4 Mg Capsule) 0.4 mg PO BID [facility] Last Admin: 05/20/22 22:22 Dose: Not Given Documented By: ANGÉLICA Non-Admin Reason: NPO Tizanidine HCl (Tizanidine Hcl 4 Mg Tablet) 4 mg PO DAILY PRN PRN Reason: muscle spasticity Last Admin: 05/19/22 13:02 Dose: 4 mg Documented By: ASHISH Trazodone HCl (Trazodone Hcl 100 Mg Tablet) 300 mg PO BEDTIME PRN PRN Reason: insomnia Last Admin: 05/18/22 20:59 Dose: 300 mg Documented By: ANTOIC Labs 05/20/22 07:43 05/20/22 07:45 Microbiology Microbiology Results: Microbiology 05/18/22 08:43 Gram Stain - Final Abscess Intra-abdominal Routine Culture - Final 05/17/22 19:37 Blood Culture - Final Blood - Venous Coag negative Staphylococcus Assessment and Plan (1) Perforated diverticulum of large intestine: Status: Acute (2) LILIANA (acute kidney injury): Status: Acute Plan This is a 71 year old male with history of Parkinson's disease, chronic back pa in, HTN, BPH, hypothyroidism, recent admission for PNA and fusobacterium bacteremia who presented to the ED with abdominal pain found to have perforated diverticulitis with intraabdominal abscess, LILIANA s/p exploratory laparotomy/Milla procedure toxic metabolic encaphalopathy r/t feculent peritonitis, abscess collection, LILIANA, multiple sedating meds brain CT negative Urine culture negative VBG ok calm today bilateral wrist restraints off perforated diverticulitis/perotonitis/abdominal abscess s/p ex lab, Milla procedure 2/2 management per surgical team follow intra-abdominal abscess cultures continue IV levaquin, flagyl, renally dosed start clear diet LILIANA Creatinine significantly down today, 2.71 no obstruction on imaging. likely ATN from r/t infection, renal hypoperfusion nephrology following, recs appreciated, plan for temp HD catheter placement by IR and HD but unable to place due to delirium and combativeness will d/c IVF follow BMP, UO closely discussed with ICU attending, will hold off on dialysis at this time as renal function is slowly trending down and in light of severe encephalopathy Hypernatremia Likely secondary to IV fluids , Stopped Follow BMP Started on clear liquid diet Hyperkalemia. Resolved dose of lokelma given 2/2 follow BMP Bacteremia-coag neg staph contaminant stop vancomycin chronic pain pain/RLS May continue all medications at this time, renally dose if needed Parksinon's disease/dementia namenda, amantadine dose decreased continue aricept, sinemet adjust med doses based on renal function BPH cason in place continue proscar, flomax HTN continue diltiezem hold lisinopril FRANCES not complaint with CPAP at baseline Thank you for allowing us to participate in the care of this patient. we will follow along with you Attending - dr. Wood Time Spent With Patient Time: Total time managing care of this patient today ____ minutes. Quality Stroke Does the patient have a stroke diagnosis?: No VTE Prior VTE?: No VTE Risk Level:: Surgical - high VTE Device Contraindication: N/A - Device Ordered VTE Drug Contraindication: N/A - Med Ordered
--- NOTE | 2022-05-21 09:28 | P.PNNP_ITS ---
Subjective Subjective Date of Service: 05/21/22 Interval history: Continues to be delirious Awake BUn/Cr stable K stable Acidosis stable good UOP by [place] Cath Physical Exam Vital Signs: Vital Signs: Last Vital Signs Temp 97.9 F 05/21/22 07:43 Pulse 100 05/21/22 07:43 Resp 20 05/21/22 07:43 BP 138/80 05/21/22 07:43 Pulse Ox 83 L 05/21/22 07:43 O2 Del Method 05/21/22 07:43 O2 Flow Rate 3 05/21/22 07:43 BMI result Body Mass Index 31.9 Const: General: cooperative and confusion Orientation/consciousness: confusion Resp: Other: decreased respiratory effort, diminished breath sounds Effort & Inspection: normal respiratory effort and able to speak in complete sentences Auscultation: clear to auscultation bilaterally, no crackles, no rales and no rhonchi Cardio: Rate: regular rate Rhythm: regular rhythm Heart sounds: S1 normal heart sound present and S2 normal heart sound present GI: Other: midline abdominal incision with c/d/i dressing; softly distended, avis- incisional tenderness : Other: cason in place draining yellow urine Neuro: Other: able to move all 4 extremities; sleepy,difficult for full neuro eval, following commands, tongue midline, face symmetrical. no focal deficits apprecitated General: confusion Extrem: General: Yes normal to inspection and Yes no clubbing, cyanosis or edema Psych: Appearance: grossly normal Objective Data Labs 05/20/22 07:43 05/20/22 07:45 Microbiology Microbiology Results: Microbiology 05/18/22 08:43 Abscess Intra-abdominal Gram Stain - Final 05/18/22 08:43 Abscess Intra-abdominal Routine Culture - Final 05/17/22 19:37 Blood - Venous Blood Culture - Final Coag negative Staphylococcus 05/17/22 18:07 Blood - Venous Blood Culture - Preliminary No growth after 48 hours. 05/17/22 22:50 Urine clean catch - Urine king top Urine Culture - Final No growth. Procedures Date of Service Date of Service: 05/21/22 Assessment & Plan Assessment and plan (1) LILIANA (acute kidney injury): Status: Acute (2) Perforated diverticulum of large intestine: Status: Acute Plan Mr. Kevan Rivas is a?71-year-old male with past medical history of HTN, HLD, Parkinsons, and Chronic Pain on chronic Naproxen and Opioids who presented to the emergency department with abdominal pain found to have perforated diverticulitis. He underwent exploratory laparotomy/Milla procedure secondary to perforated sigmoid diverticulitis with multiple pelvic abscesses.?Course now complicated by LILIANA, Hyperkalemia and Oliguria all refractory to resuscitation and Abx efforts. Course then complicated by hyperactive delirium complicating a safe temporary dialysis catheter placement. Patient was therefore managed medically with bicarbonate, diuretics. His Acidsois is stable and Hyperkalemia resolved. He is no longer oliguric, but GFR is poor. 1. Non-Oliguric LILIANA baseline Cr 0.6mg/dL Cr rising >5mg/dL CT imaging ruled out obstruction U/A with granular MBC sediment c/w tubular necrosis. Overall I high suspect ATN in the setting of severe sepsis, hemodynamic compromise, renal hypoperfusion, cytokine storm, decreased PO intake and ongoing BID Naproxen Glomerular pathology unlikely AIN cannot be ruled out, but does not necessarily fit the picture Obstruction ruled out Despite poor GFR, UOP responded to diuretics and Hyperkalemia / Acidosis medically temporized. Plan: - will continue conservative / medical measures seeing this ATN through. - c/w [place] catheter for I/Os - Lokelma 10g PRN K >5.0 - Bumex 4mg IV if oliguric. - will f/u labs and UOP progress. If patient declines will move to ICU for temp line and dialysis. Time Spent With Patient Time: Total time managing care of this patient today ____ minutes. Progress Note: Quality Stroke Does the patient have a stroke diagnosis?: No
[2022-05-21 10:00] VITALS: O2SAT 96
[2022-05-21] MEDS: Lidocaine 4 % Patch ADH..PATCH 1 PATCH TRANSDERMA (10:00)
[2022-05-21] MEDS: Finasteride 5 MG TABLET PO (10:01)
[2022-05-21] MEDS: Carbidopa/Levodopa 25/100 TABLET 1 TAB PO ×4 (10:01→19:53)
[2022-05-21] MEDS: dilTIAZem HCL CD 240 MG CAP.ER.DEG PO (10:01)
[2022-05-21] MEDS: Tamsulosin HCL 0.4 MG CAPSULE PO ×2 (10:02→19:53)
[2022-05-21] MEDS: Memantine HCl 5 MG TABLET PO ×2 (10:02→19:53)
[2022-05-21] MEDS: Pregabalin 150 MG CAPSULE PO ×2 (10:02→19:52)
[2022-05-21] MEDS: DULoxetine HCl 30 MG CAPSULE.DR PO (10:02)
[2022-05-21] MEDS: oxyCODONE HCl Immed Release 5 MG TABLET PO ×4 (10:02→23:57)
[2022-05-21] MEDS: Fluticasone Propionate Nasal 16 GM SPRAY 1 SPRAY NOSTRIL-B ×2 (10:03→22:21)
[2022-05-21] MEDS: Dextrose 5 % and 0.9 % NaCl 1,000 ML 80 ML IVCONT (10:06)
[2022-05-21 10:11] LABS: Anion Gap 21 (12-20); Blood Urea Nitrogen 90 mg/dL (9-16); Calcium 8.3 mg/dL (8.4-10.2); Carbon Dioxide 24 mmol/L (22-29); Chloride 112 mmol/L (96-108); Creatinine Clr Calc Pharmacy 26.7; Estimated Glomerular Filt Rate 23; Glucose Random 90 mg/dL (60-115); Potassium 4.1 mmol/L (3.3-5.1); Sodium 153 mmol/L (135-145)
[2022-05-21] MEDS: rOPINIRole HCL 2 MG TABLET 6 MG PO (13:21)
[2022-05-21 15:23] VITALS: BP 148/84; PULSE 108; RESP 17; TEMP 36.7; O2SAT 94
[2022-05-21] MEDS: Acetaminophen 1,000 MG/100 ML PIGGYBACK 400 MG IV ×2 (15:36→19:52)
[2022-05-21] MEDS: Donepezil HCl 10 MG TABLET PO (19:53)
[2022-05-21] MEDS: rOPINIRole HCL 2 MG TABLET 12 MG PO (19:54)
[2022-05-21] MEDS: traZODone HCL 100 MG TABLET 300 MG PO (19:54)
[2022-05-21] MEDS: levoFLOXacin/D5W 750 MG/150 ML PIGGYBACK 100 MG IV (20:11)
[2022-05-22] VITALS (7 sets, daily range): BP systolic 137–172; BP diastolic 77–102; PULSE 76–103; RESP 18–20; TEMP 36.2–37.1; O2SAT 93–98
[2022-05-22] MEDS: Acetaminophen 1,000 MG/100 ML PIGGYBACK 400 MG IV ×2 (04:17→09:40)
[2022-05-22] MEDS: Levothyroxine Sodium 50 MCG TABLET PO (04:18)
[2022-05-22] MEDS: Omeprazole 20 MG CAPSULE.DR PO (04:18)
[2022-05-22] MEDS: oxyCODONE HCl Immed Release 5 MG TABLET PO ×4 (04:18→20:55)
[2022-05-22] MEDS: metroNIDAZOLE/NS 500 MG/100 ML PIGGYBACK 100 MG IV ×3 (06:10→23:33)
[2022-05-22 07:27] LABS: MANUAL DIFF FLAG NO
[2022-05-22 07:43] LABS: Basophils Absolute Auto 0.1 X10*3/uL (0.0-0.2); Basophils Percent Auto 0.4 % (0-2); Eosinophils Percent Auto 0.3 % (0-4); Hematocrit 38.1 % (42.0-52.0); Hemoglobin 12.3 g/dl (14.0-18.0); Imm Gran Abs Auto 0.28 X10*3/uL (0.00-0.03); Imm Gran Pct Auto 2.4 % (0.0-0.4); Lymphocytes Absolute Auto 0.8 X10*3/uL (1.2-4.9); Lymphocytes Percent Auto 7.1 % (20-40); Mean Corpuscular HGB Conc 32.3 g/dl (31.0-36.0); Mean Corpuscular Hemoglobin 31.7 pg (27.0-33.0); Mean Corpuscular Volume 98.2 fL (80.0-98.0); Mean Platelet Volume 8.9 fL (9.4-12.4); Monocytes Absolute Auto 1.2 X10*3/uL (0.1-1.2); Monocytes Percent Auto 10.5 % (2-11); Neutrophils Absolute Auto 9.2 x10*3/uL (2.0-8.3); Neutrophils Percent Auto 79.3 % (45-73); Platelet Count 395 X10*3/uL (160-400); Red Blood Count 3.88 X10*6/uL (4.60-5.80); Red Cell Distribution Width 14.2 % (11.0-16.0); White Blood Count 11.6 X10*3/uL (4.8-10.8)
[2022-05-22 08:10] LABS: Anion Gap 16 (12-20); Blood Urea Nitrogen 64 mg/dL (9-16); Calcium 8.7 mg/dL (8.4-10.2); Carbon Dioxide 29 mmol/L (22-29); Chloride 113 mmol/L (96-108); Creatinine Clr Calc Pharmacy 56.1; Estimated Glomerular Filt Rate 55; Glucose Random 130 mg/dL (60-115); Potassium 3.8 mmol/L (3.3-5.1); Sodium 154 mmol/L (135-145)
--- NOTE | 2022-05-22 08:53 | P.PNIM_ITS ---
Subjective Subjective Date of Service: 05/22/22 Interval History: seen and examined this morning follow up for perforated diverticulitis, LILIANA no overnight events confusion and combativeness resolved Review of Systems Review of Systems: Yes all other systems are reviewed and are negative Constitutional Constitutional: Denies chills and Denies fever(s) Cardiovascular Cardiovascular: Denies chest pain and Denies dyspnea Respiratory Respiratory: Denies dyspnea Gastrointestinal Gastrointestinal: Reports abdominal pain Physical Exam Vital Signs: Vital Signs: Last Vital Signs Temp 98.3 F 05/22/22 07:54 Pulse 103 H 05/22/22 07:54 Resp 20 05/22/22 07:54 BP 144/94 H 05/22/22 07:54 Pulse Ox 94 05/22/22 07:54 O2 Del Method 05/22/22 07:54 O2 Flow Rate 2 05/22/22 07:54 BMI result Body Mass Index 31.9 Appearing in no acute distress lung sounds are clear to auscultation heart regular rate rhythm, clear S1, S2 positive bowel sounds, abdomen is soft, nontender neuro patient is alert x3, no focal deficits Objective Data Active Medications Amantadine HCl (Amantadine Hcl 100 Mg Capsule) 100 mg PO Q2D [facility] Last Admin: 05/20/22 17:17 Dose: Not Given Documented By: BROMarycruz Non-Admin Reason: Patient Refused Baclofen (Baclofen 20 Mg Tablet) 20 mg PO BID PRN PRN Reason: pain (scale score 4-6) Buspirone HCl (Buspirone Hcl 10 Mg Tablet) 10 mg PO BID PRN PRN Reason: Anxiety Carbidopa/Levodopa (Carbidopa/Levodopa 25/100 Tablet) 1 tab PO QID [facility] Last Admin: 05/21/22 19:53 Dose: 1 tab Documented By: CARMEN Diltiazem HCl (Diltiazem Hcl Cd 240 Mg Cap.Er.Deg) 240 mg PO DAILY [facility]; Protocol Last Admin: 05/21/22 10:01 Dose: 240 mg Documented By: BENEDICT Donepezil HCl (Donepezil Hcl 10 Mg Tablet) 10 mg PO BEDTIME [facility] Last Admin: 05/21/22 19:53 Dose: 10 mg Documented By: CARMEN Duloxetine HCl (Duloxetine Hcl 30 Mg Capsule.Dr) 30 mg PO DAILY [facility] Last Admin: 05/21/22 10:02 Dose: 30 mg Documented By: BENEDICT Finasteride (Finasteride 5 Mg Tablet) 5 mg PO DAILY [facility] Last Admin: 05/21/22 10:01 Dose: 5 mg Documented By: BENEDICT Fluticasone Propionate (Fluticasone Propionate Nasal 16 Gm [place]) 1 spray NOSTRIL-B BID [facility] Last Admin: 05/21/22 22:21 Dose: 1 spray Documented By: CARMEN Metronidazole (Flagyl) 500 mg in 100 mls @ 100 mls/hr IV Q8H [facility] Last Admin: 05/22/22 06:10 Dose: 100 mls/hr Documented By: CARMEN Levofloxacin (Levaquin) 750 mg in 150 mls @ 100 mls/hr IV Q48H [facility] Last Infusion: 05/21/22 22:23 Dose: 0 mls/hr Documented By: CARMEN Acetaminophen (Ofirmev) 1,000 mg in 100 mls @ 400 mls/hr IV Q6H [facility] Last Infusion: 05/22/22 04:38 Dose: 0 mls/hr Documented By: CARMEN Levothyroxine Sodium (Levothyroxine Sodium 50 Mcg Tablet) 50 mcg PO DAILY@0600 [facility] Last Admin: 05/22/22 04:18 Dose: 50 mcg Documented By: CARMEN Lidocaine (Lidocaine 4 % Patch Adh..Patch) 1 patch TRANSDERMA DAILY [facility] Last Admin: 05/21/22 10:00 Dose: 1 patch Documented By: BENEDICT Magnesium Hydroxide (Milk Of Magnesia 30 Ml Oral.Susp) 30 ml PO DAILY PRN PRN Reason: Constipation Memantine (Memantine Hcl 5 Mg Tablet) 5 mg PO BID [facility] Last Admin: 05/21/22 19:53 Dose: 5 mg Documented By: CARMEN Omeprazole (Omeprazole 20 Mg Capsule.Dr) 20 mg PO DAILY@0630 [facility] Last Admin: 05/22/22 04:18 Dose: 20 mg Documented By: CARMEN Ondansetron HCl (Ondansetron Hcl 4 Mg/2 Ml Vial) 4 mg IVPUSH Q8H PRN PRN Reason: Nausea and Vomiting Last Admin: 05/19/22 14:51 Dose: 4 mg Documented By: INDU Oxycodone HCl (Oxycodone Hcl Immed Release 5 Mg Tablet) 5 mg PO Q4H PRN PRN Reason: Pain, Mild (Pain Scale 1-3) Last Admin: 05/22/22 04:18 Dose: 5 mg Documented By: CARMEN Pharmacy Consult (Consult Rx Perform Med Rec) 1 each MISCELLANE ONCE PRN PRN Reason: Consult order Pregabalin (Pregabalin 150 Mg Capsule) 150 mg PO BID [facility] Last Admin: 05/21/22 19:52 Dose: 150 mg Documented By: CARMEN Ropinirole HCl (Ropinirole Hcl 2 Mg Tablet) 6 mg PO DAILY@1200 [facility] Last Admin: 05/21/22 13:21 Dose: 6 mg Documented By: BENEDICT Ropinirole HCl (Ropinirole Hcl 2 Mg Tablet) 12 mg PO BEDTIME [facility] Last Admin: 05/21/22 19:54 Dose: 12 mg Documented By: CARMEN Sodium Chloride (0.9 % Sodium Chloride Flush 3 Ml Syringe) 3 ml IVFLUSH [facility] Last Admin: 05/21/22 22:24 Dose: 3 ml Documented By: CARMEN Tamsulosin HCl (Tamsulosin Hcl 0.4 Mg Capsule) 0.4 mg PO BID [facility] Last Admin: 05/21/22 19:53 Dose: 0.4 mg Documented By: CARMEN Tizanidine HCl (Tizanidine Hcl 4 Mg Tablet) 4 mg PO DAILY PRN PRN Reason: muscle spasticity Last Admin: 05/19/22 13:02 Dose: 4 mg Documented By: ASHISH Trazodone HCl (Trazodone Hcl 100 Mg Tablet) 300 mg PO BEDTIME PRN PRN Reason: insomnia Last Admin: 05/21/22 19:54 Dose: 300 mg Documented By: CARMEN Labs 05/22/22 07:08 05/22/22 07:08 Labs: Laboratory Results - last 24 hr 05/21/22 05/22/22 05/22/22 08:33 07:08 07:08 MCV 98.2 H MCH 31.7 MCHC 32.3 RDW 14.2 Plt Count 395 D MPV 8.9 L Immature Gran % (Auto) 2.4 H Neut % (Auto) 79.3 H Lymph % (Auto) 7.1 L [place] % (Auto) 10.5 Eos % (Auto) 0.3 Baso % (Auto) 0.4 Lymph # (Auto) 0.8 L [place] # (Auto) 1.2 Eos # (Auto) 0.0 Baso # (Auto) 0.1 Abs Immat Gran (auto) 0.28 H Absolute Neuts (auto) 9.2 H Absolute Nucleated RBC 0.000 Nucleated RBC % (auto) 0.0 Anion Gap 21 H 16 Estim Creat Clear Calc 26.7 56.1 Estimated GFR 23 55 Random Glucose 90 130 H Calcium 8.3 L D 8.7 Assessment and Plan (1) Perforated diverticulum of large intestine: Status: Acute (2) LILIANA (acute kidney injury): Status: Acute Plan This is a 71 year old male with history of Parkinson's disease, chronic back pain, HTN, BPH, hypothyroidism, recent admission for PNA and fusobacterium bacteremia who presented to the ED with abdominal pain found to have perforated diverticulitis with intraabdominal abscess, LILIANA s/p exploratory la parotomy/Milla procedure Hypernatremia D5W follow sodium closely toxic metabolic encaphalopathy. resolved r/t feculent peritonitis, abscess collection, LILIANA, multiple sedating meds perforated diverticulitis/perotonitis/abdominal abscess s/p ex lab, Milla procedure 2/2 management per surgical team follow intra-abdominal abscess cultures continue IV levaquin, flagyl, renally dosed start clear diet LILIANA. Resolved creat as high as 5.08, pot 5.4 no obstruction on imaging. likely ATN from r/t infection, renal hypoperfusion initial plan was for HD but was unable to place cath due to severe encephalopathy, now not needed Hyperkalemia. Resolved dose of lokelma given 2/2 follow BMP Bacteremia-coag neg staph contaminant stop vancomycin chronic pain pain/RLS May continue all medications at this time, renally dose if needed Parksinon's disease/dementia namenda, amantadine dose decreased continue aricept, sinemet adjust med doses based on renal function BPH cason in place continue proscar, flomax HTN continue diltiezem hold lisinopril FRANCES not complaint with CPAP at baseline Thank you for allowing us to participate in the care of this patient. we will follow along with you Attending - dr. Snow Time Spent With Patient Time: Total time managing care of this patient today ____ minutes. Quality Stroke Does the patient have a stroke diagnosis?: No VTE Prior VTE?: No VTE Risk Level:: Surgical - high VTE Device Contraindication: N/A - Device Ordered VTE Drug Contraindication: N/A - Med Ordered
--- NOTE | 2022-05-22 09:34 | PM.PNGS ---
Subjective Subjective Date of Service: 05/22/22 <Keli Zelaya PA-C - Last Filed: 05/22/22 09:40> 05/22/22 <Aric Mcneill MD - Last Filed: 05/22/22 10:40> Interval history: Having some nausea. Has been also complaining of abdomen feeling uncomfortable and gas pains per . <Keli Zelaya PA-C - Last Filed: 05/22/22 09:40> Physical Exam Vital Signs: Vital Signs: Last Vital Signs Temp 98.3 F 05/22/22 07:54 Pulse 103 H 05/22/22 07:54 Resp 20 05/22/22 07:54 BP 144/94 H 05/22/22 07:54 Pulse Ox 94 05/22/22 07:54 O2 Del Method 05/22/22 07:54 O2 Flow Rate 2 05/22/22 07:54 BMI result Body Mass Index 31.9 <Keli Zelaya PA-C - Last Filed: 05/22/22 09:40> Const: General: comfortable, no acute distress and alert <Keli Zelaya PA-C - Last Filed: 05/22/22 09:40> Orientation/consciousness: oriented to person <Keli Zelaya PA-C - Last Filed: 05/22/22 09:40> Resp: Effort & Inspection: normal respiratory effort <Keli Zelaya PA-C - Last Filed: 05/22/22 09:40> GI: Other: stoma with soft, brown stool in appliance <Keli Zelaya PA-C - Last Filed: 05/22/22 09:40> Inspection: Yes distended and Yes incision (chris intact, some drainage at inferior aspect, no erythema ) <CAESAR Villalobos Last Filed: 05/22/22 09:40> Palpation (GI): Soft to palpation, Tenderness to palpation present (GI) (mild, incisional), no guarding and not rigid <CAESAR Villalobos Last Filed: 05/22/22 09:40> Skin: General skin exam: no rashes or lesions noted <Keli Zelaya PA-C - Last Filed: 05/22/22 09:40> Neuro: General: oriented to person <Keli Zelaya PA-C - Last Filed: 05/22/22 09:40> Extrem: General: Yes no clubbing, cyanosis or edema <Keli Zelaya PA-C - Last Filed: 05/22/22 09:40> Objective Data Active Medications Amantadine HCl (Amantadine Hcl 100 Mg Capsule) 100 mg PO Q2D [facility] Last Admin: 05/20/22 17:17 Dose: Not Given Documented By: JOSÉ MANUEL Non-Admin Reason: Patient Refused Baclofen (Baclofen 20 Mg Tablet) 20 mg PO BID PRN PRN Reason: pain (scale score 4-6) Buspirone HCl (Buspirone Hcl 10 Mg Tablet) 10 mg PO BID PRN PRN Reason: Anxiety Carbidopa/Levodopa (Carbidopa/Levodopa 25/100 Tablet) 1 tab PO QID [facility] Last Admin: 05/21/22 19:53 Dose: 1 tab Documented By: CARMEN Diltiazem HCl (Diltiazem Hcl Cd 240 Mg Cap.Er.Deg) 240 mg PO DAILY [facility]; Protocol Last Admin: 05/21/22 10:01 Dose: 240 mg Documented By: BENEDICT Donepezil HCl (Donepezil Hcl 10 Mg Tablet) 10 mg PO BEDTIME [facility] Last Admin: 05/21/22 19:53 Dose: 10 mg Documented By: CARMEN Duloxetine HCl (Duloxetine Hcl 30 Mg Capsule.Dr) 30 mg PO DAILY [facility] Last Admin: 05/21/22 10:02 Dose: 30 mg Documented By: BENEDICT Finasteride (Finasteride 5 Mg Tablet) 5 mg PO DAILY [facility] Last Admin: 05/21/22 10:01 Dose: 5 mg Documented By: BENEDICT Fluticasone Propionate (Fluticasone Propionate Nasal 16 Gm [place]) 1 spray NOSTRIL-B BID [facility] Last Admin: 05/21/22 22:21 Dose: 1 spray Documented By: CARMEN Metronidazole (Flagyl) 500 mg in 100 mls @ 100 mls/hr IV Q8H [facility] Last Admin: 05/22/22 06:10 Dose: 100 mls/hr Documented By: CARMEN Levofloxacin (Levaquin) 750 mg in 150 mls @ 100 mls/hr IV Q48H [facility] Last Infusion: 05/21/22 22:23 Dose: 0 mls/hr Documented By: CARMEN Acetaminophen (Ofirmev) 1,000 mg in 100 mls @ 400 mls/hr IV Q6H [facility] Last Infusion: 05/22/22 04:38 Dose: 0 mls/hr Documented By: CARMEN Dextrose (D5w) 500 mls @ 100 mls/hr IVCONT .Q5H [facility] Levothyroxine Sodium (Levothyroxine Sodium 50 Mcg Tablet) 50 mcg PO DAILY@0600 [facility] Last Admin: 05/22/22 04:18 Dose: 50 mcg Documented By: CARMEN Lidocaine (Lidocaine 4 % Patch Adh..Patch) 1 patch TRANSDERMA DAILY [facility] Last Admin: 05/21/22 10:00 Dose: 1 patch Documented By: BENEDICT Magnesium Hydroxide (Milk Of Magnesia 30 Ml Oral.Susp) 30 ml PO DAILY PRN PRN Reason: Constipation Memantine (Memantine Hcl 5 Mg Tablet) 5 mg PO BID [facility] Last Admin: 05/21/22 19:53 Dose: 5 mg Documented By: CARMEN Omeprazole (Omeprazole 20 Mg Capsule.) 20 mg PO DAILY@0630 [facility] Last Admin: 05/22/22 04:18 Dose: 20 mg Documented By: CARMEN Ondansetron HCl (Ondansetron Hcl 4 Mg/2 Ml Vial) 4 mg IVPUSH Q8H PRN PRN Reason: Nausea and Vomiting Last Admin: 05/19/22 14:51 Dose: 4 mg Documented By: INDU Oxycodone HCl (Oxycodone Hcl Immed Release 5 Mg Tablet) 5 mg PO Q4H PRN PRN Reason: Pain, Mild (Pain Scale 1-3) Last Admin: 05/22/22 04:18 Dose: 5 mg Documented By: CARMEN Pharmacy Consult (Consult Rx Perform Med Rec) 1 each MISCELLANE ONCE PRN PRN Reason: Consult order Pregabalin (Pregabalin 150 Mg Capsule) 150 mg PO BID [facility] Last Admin: 05/21/22 19:52 Dose: 150 mg Documented By: CARMEN Ropinirole HCl (Ropinirole Hcl 2 Mg Tablet) 6 mg PO DAILY@1200 [facility] Last Admin: 05/21/22 13:21 Dose: 6 mg Documented By: BENEDICT Ropinirole HCl (Ropinirole Hcl 2 Mg Tablet) 12 mg PO BEDTIME [facility] Last Admin: 05/21/22 19:54 Dose: 12 mg Documented By: CARMEN Sodium Chloride (0.9 % Sodium Chloride Flush 3 Ml Syringe) 3 ml IVFLUSH QSHIFT [facility] Last Admin: 05/21/22 22:24 Dose: 3 ml Documented By: CARMEN Tamsulosin HCl (Tamsulosin Hcl 0.4 Mg Capsule) 0.4 mg PO BID [facility] Last Admin: 05/21/22 19:53 Dose: 0.4 mg Documented By: CARMEN Tizanidine HCl (Tizanidine Hcl 4 Mg Tablet) 4 mg PO DAILY PRN PRN Reason: muscle spasticity Last Admin: 05/19/22 13:02 Dose: 4 mg Documented By: ASHISH Trazodone HCl (Trazodone Hcl 100 Mg Tablet) 300 mg PO BEDTIME PRN PRN Reason: insomnia Last Admin: 05/21/22 19:54 Dose: 300 mg Documented By: CARMEN <Keli Zelaya PA-C - Last Filed: 05/22/22 09:40> Labs CBC & Chem 7: 05/22/22 07:08 05/22/22 07:08 <Keli Zelaya PA-C - Last Filed: 05/22/22 09:40> Labs: Laboratory Results - last 24 hr 05/21/22 05/22/22 05/22/22 08:33 07:08 07:08 MCV 98.2 H MCH 31.7 MCHC 32.3 RDW 14.2 Plt Count 395 D MPV 8.9 L Immature Gran % (Auto) 2.4 H Neut % (Auto) 79.3 H Lymph % (Auto) 7.1 L [place] % (Auto) 10.5 Eos % (Auto) 0.3 Baso % (Auto) 0.4 Lymph # (Auto) 0.8 L [place] # (Auto) 1.2 Eos # (Auto) 0.0 Baso # (Auto) 0.1 Abs Immat Gran (auto) 0.28 H Absolute Neuts (auto) 9.2 H Absolute Nucleated RBC 0.000 Nucleated RBC % (auto) 0.0 Anion Gap 21 H 16 Estim Creat Clear Calc 26.7 56.1 Estimated GFR 23 55 Random Glucose 90 130 H Calcium 8.3 L D 8.7 <Keli Zelaya PA-C Last Filed: 05/22/22 09:40> Procedures Date of Service Date of Service: 05/22/22 <CAESAR Villalobos Last Filed: 05/22/22 09:40> Progress Note: A&P Assessment and plan (1) SIRS (systemic inflammatory response syndrome): Status: Acute <CAESAR Villalobos Last Filed: 05/22/22 09:40> (2) Perforated diverticulum of large intestine: Status: Acute <CAESAR Villalobos Last Filed: 05/22/22 09:40> (3) LILIANA (acute kidney injury): Status: Acute <Keli Zelaya PA-C Last Filed: 05/22/22 09:40> Assessment and Plan: 71 year old male admitted for perforated diverticulitis now POD #4 s/p nimo procedure. Continues to have some nausea. Ostomy now with stool output. Abd slightly distended, incision with some drainage inferiorly. WBC improved today; Abscess cx- mixed jude, cont IV abx. Will continue clears as tolerated for now. OOB to recliner, IS use. PT consult. Begin ostomy education. Hospitalists following for multiple medical comorbidities, renal function improved. Dialysis stopped yesterday <Keli Zelaya PA-C Last Filed: 05/22/22 09:40> Time Spent With Patient Time: Total time managing care of this patient today ____ minutes. <CAESAR Villalobos Last Filed: 05/22/22 09:40> Quality Stroke Does the patient have a stroke diagnosis?: No <CAESAR Villalobos Last Filed: 05/22/22 09:40> VTE Prior VTE?: No <CAESAR Villalobos Last Filed: 05/22/22 09:40> VTE Risk Level:: Surgical - high <Keli Zelaya PA-C - Last Filed: 05/22/22 09:40> VTE Device Contraindication: N/A - Device Ordered <Keli Zelaya PA-C - Last Filed: 05/22/22 09:40> VTE Drug Contraindication: N/A - Med Ordered <CAESAR Villalobos Last Filed: 05/22/22 09:40>
[2022-05-22] MEDS: Memantine HCl 5 MG TABLET PO ×2 (09:39→20:55)
[2022-05-22] MEDS: Finasteride 5 MG TABLET PO (09:39)
[2022-05-22] MEDS: dilTIAZem HCL CD 240 MG CAP.ER.DEG PO (09:39)
[2022-05-22] MEDS: DULoxetine HCl 30 MG CAPSULE.DR PO (09:40)
[2022-05-22] MEDS: Carbidopa/Levodopa 25/100 TABLET 1 TAB PO ×4 (09:40→20:54)
[2022-05-22] MEDS: Dextrose 5 % 500 ML 100 ML IVCONT ×3 (09:50→18:16)
[2022-05-22] MEDS: Lidocaine 4 % Patch ADH..PATCH 1 PATCH TRANSDERMA (09:51)
[2022-05-22] MEDS: Pregabalin 150 MG CAPSULE PO ×2 (09:51→20:54)
[2022-05-22] MEDS: Tamsulosin HCL 0.4 MG CAPSULE PO ×2 (09:51→20:54)
[2022-05-22] MEDS: Fluticasone Propionate Nasal 16 GM SPRAY 1 SPRAY NOSTRIL-B (09:52)
[2022-05-22] MEDS: 0.9 % Sodium Chloride Flush 3 ML SYRINGE IVFLUSH ×2 (09:56→16:37)
--- NOTE | 2022-05-22 10:50 | P.PNNP_ITS ---
Subjective Subjective Date of Service: 05/22/22 Interval history: Events noted Family at bedside Physical Exam Vital Signs: Vital Signs: Last Vital Signs Temp 98.3 F 05/22/22 07:54 Pulse 103 H 05/22/22 07:54 Resp 20 05/22/22 07:54 BP 144/94 H 05/22/22 07:54 Pulse Ox 94 05/22/22 07:54 O2 Del Method 05/22/22 07:54 O2 Flow Rate 2 05/22/22 07:54 BMI result Body Mass Index 31.9 Const: General: cooperative Resp: Other: decreased respiratory effort, diminished breath sounds Cardio: Rate: regular rate Rhythm: regular rhythm Heart sounds: S1 normal heart sound present and S2 normal heart sound present GI: Other: midline abdominal incision with c/d/i dressing; softly distended, avis- incisional tenderness : Other: cason in place draining yellow urine Neuro: Other: able to move all 4 extremities; sleepy,difficult for full neuro eval, following commands, tongue midline, face symmetrical. no focal deficits apprecitated Extrem: General: Yes normal to inspection and Yes no clubbing, cyanosis or edema Psych: Appearance: grossly normal Objective Data Labs 05/22/22 07:08 05/22/22 07:08 Labs: Laboratory Results - last 24 hr 05/22/22 05/22/22 07:08 07:08 WBC 11.6 H RBC 3.88 L Hgb 12.3 L Hct 38.1 L MCV 98.2 H MCH 31.7 MCHC 32.3 RDW 14.2 Plt Count 395 D MPV 8.9 L Immature Gran % (Auto) 2.4 H Neut % (Auto) 79.3 H Lymph % (Auto) 7.1 L [place] % (Auto) 10.5 Eos % (Auto) 0.3 Baso % (Auto) 0.4 Lymph # (Auto) 0.8 L [place] # (Auto) 1.2 Eos # (Auto) 0.0 Baso # (Auto) 0.1 Abs Immat Gran (auto) 0.28 H Absolute Neuts (auto) 9.2 H Absolute Nucleated RBC 0.000 Nucleated RBC % (auto) 0.0 Sodium 154 H Potassium 3.8 Chloride 113 H Carbon Dioxide 29 Anion Gap 16 BUN 64 H Creatinine 1.29 Estim Creat Clear Calc 56.1 Estimated GFR 55 Random Glucose 130 H Calcium 8.7 Microbiology Microbiology Results: Microbiology 05/18/22 08:43 Abscess Intra-abdominal Gram Stain - Final 05/18/22 08:43 Abscess Intra-abdominal Routine Culture - Final 05/17/22 19:37 Blood - Venous Blood Culture - Final Coag negative Staphylococcus 05/17/22 18:07 Blood - Venous Blood Culture - Preliminary No growth after 48 hours. 05/17/22 22:50 Urine clean catch - Urine king top Urine Culture - Final No growth. Procedures Date of Service Date of Service: 05/22/22 Assessment & Plan Assessment and plan (1) LILIANA (acute kidney injury): Status: Acute (2) Perforated diverticulum of large intestine: Status: Acute Plan 71-year-old male with a history of HTN, HLD, Parkinsons, and Chronic Pain on chronic Naproxen and Opioids who presented to the emergency department with abdominal pain found to have perforated diverticulitis. He underwent exploratory laparotomy/Milla procedure secondary to perforated sigmoid diverticulitis with multiple pelvic abscesses.?Course now complicated by LILIANA, Hyperkalemia and Oliguria all refractory to resuscitation and Abx efforts. Course then complicated by hyperactive delirium complicating a safe temporary dialysis catheter placement. Patient was therefore managed medically with bicarbonate, diuretics. His Acidsois is stable and Hyperkalemia resolved. He is no longer oliguric, but GFR is poor. 1. Non-Oliguric LILIANA baseline Cr 0.6mg/dL Cr rising >5mg/dL CT imaging ruled out obstruction U/A with granular MBC sediment c/w tubular necrosis. Overall I high suspect ATN in the setting of severe sepsis, hemodynamic compromise, renal hypoperfusion, cytokine storm, decreased PO intake and ongoing BID Naproxen Glomerular pathology unlikely AIN cannot be ruled out, but does not necessarily fit the picture Obstruction ruled out Despite poor GFR, UOP responded to diuretics and Hyperkalemia / Acidosis medi blade temporized. Plan: - will continue conservative / medical measures seeing this ATN through. - c/w [place] catheter for I/Os - Lokelma 10g PRN K >5.0 -Keep I > O with D5W and encourage PO water intake Time Spent With Patient Time: Total time managing care of this patient today ____ minutes. Progress Note: Quality Stroke Does the patient have a stroke diagnosis?: No
[2022-05-22] MEDS: rOPINIRole HCL 2 MG TABLET 6 MG PO (13:44)
--- NOTE | 2022-05-22 15:44 | MHC.CM.PN ---
per rounds pt not ready for dc due to an electrolyte imbalance
[2022-05-22] MEDS: Acetaminophen 325 MG TABLET 650 MG PO (16:37)
[2022-05-22] MEDS: amantadine HCL 100 MG CAPSULE PO (16:40)
--- NOTE | 2022-05-22 16:45 | PC.NURSE ---
Pt. alert and oriented x 4, calm and cooperative. 1:1 sitter discontinued, camera in place, bed and chair alarm on, at bedside. OOB to chair, ambulates with a walker, assist x 1.
[2022-05-22 18:23] LABS: Sodium 152 mmol/L (135-145)
[2022-05-22] MEDS: rOPINIRole HCL 2 MG TABLET 12 MG PO (20:52)
[2022-05-22] MEDS: traZODone HCL 100 MG TABLET 300 MG PO (20:54)
[2022-05-22] MEDS: Donepezil HCl 10 MG TABLET PO (20:54)
[2022-05-23] MEDS: Dextrose 5 % 500 ML 100 ML IVCONT ×2 (00:03→05:11)
[2022-05-23 03:41] VITALS: BP 145/87; PULSE 98; RESP 20; TEMP 36.8; O2SAT 93
[2022-05-23] MEDS: Acetaminophen 325 MG TABLET 650 MG PO ×4 (03:50→21:18)
[2022-05-23] MEDS: oxyCODONE HCl Immed Release 5 MG TABLET PO ×5 (03:50→21:17)
[2022-05-23] MEDS: Levothyroxine Sodium 50 MCG TABLET PO (05:10)
[2022-05-23] MEDS: Omeprazole 20 MG CAPSULE.DR PO (05:10)
[2022-05-23] MEDS: ondansetron HCL 4 MG/2 ML VIAL IVPUSH (05:10)
[2022-05-23] MEDS: Morphine Sulfate 4 MG/ML CARTRIDGE IVPUSH (05:16)
[2022-05-23] MEDS: metroNIDAZOLE/NS 500 MG/100 ML PIGGYBACK 100 MG IV ×3 (06:01→23:45)
[2022-05-23 08:00] VITALS: BP 138/93; PULSE 118; RESP 20; TEMP 36.9; O2SAT 95
[2022-05-23] MEDS: DULoxetine HCl 30 MG CAPSULE.DR PO (08:32)
[2022-05-23] MEDS: dilTIAZem HCL CD 240 MG CAP.ER.DEG PO (08:32)
[2022-05-23] MEDS: Tamsulosin HCL 0.4 MG CAPSULE PO ×2 (08:32→21:18)
[2022-05-23] MEDS: Pregabalin 150 MG CAPSULE PO ×2 (08:33→21:18)
[2022-05-23] MEDS: Carbidopa/Levodopa 25/100 TABLET 1 TAB PO ×4 (08:33→21:17)
[2022-05-23] MEDS: Lidocaine 4 % Patch ADH..PATCH 1 PATCH TRANSDERMA (08:33)
[2022-05-23] MEDS: Memantine HCl 5 MG TABLET PO ×2 (08:33→21:17)
[2022-05-23] MEDS: Finasteride 5 MG TABLET PO (08:34)
[2022-05-23] MEDS: 0.9 % Sodium Chloride Flush 3 ML SYRINGE IVFLUSH ×3 (08:34→23:50)
[2022-05-23] MEDS: Fluticasone Propionate Nasal 16 GM SPRAY 1 SPRAY NOSTRIL-B ×2 (08:40→21:28)
[2022-05-23 08:51] LABS: Anion Gap 17 (12-20); Blood Urea Nitrogen 40 mg/dL (9-16); Calcium 8.5 mg/dL (8.4-10.2); Carbon Dioxide 29 mmol/L (22-29); Chloride 110 mmol/L (96-108); Creatinine Clr Calc Pharmacy 79.5; Estimated Glomerular Filt Rate > 60; Glucose Random 123 mg/dL (60-115); Potassium 3.8 mmol/L (3.3-5.1); Sodium 152 mmol/L (135-145)
--- NOTE | 2022-05-23 09:08 | PM.PNGS ---
Subjective Subjective Date of Service: 05/23/22 <Keli Zelaya PA-C - Last Filed: 05/23/22 09:16> 05/23/22 <Aric Mcneill MD - Last Filed: 05/23/22 11:46> Interval history: Feeling overall better. C/o neck pain mostly. Denies significant abd pain. Has some mild nausea but reports this is normal for him and usually takes zofran at home. OOB to recliner this morning and yesterday with PT. Tolerating clears. Is hungry and would like solid food. <Keli Zelaya PA-C - Last Filed: 05/23/22 09:16> Physical Exam Vital Signs: Vital Signs: Last Vital Signs Temp 98.4 F 05/23/22 08:00 Pulse 118 H 05/23/22 08:00 Resp 20 05/23/22 08:00 BP 138/93 H 05/23/22 08:00 Pulse Ox 95 05/23/22 08:00 O2 Del Method 05/23/22 08:00 O2 Flow Rate 2 05/22/22 15:01 BMI result Body Mass Index 31.9 <Keli Zelaya PA-C - Last Filed: 05/23/22 09:16> Const: General: comfortable, no acute distress and alert <CAESAR Villalobos Last Filed: 05/23/22 09:16> Resp: Effort & Inspection: normal respiratory effort <CAESAR Villalobos Last Filed: 05/23/22 09:16> GI: Other: ostomy with soft brown stool in appliance <Keli Zelaya PA-C - Last Filed: 05/23/22 09:16> Inspection: Yes distended (mild) and Yes incision (clean, some drainage to inferior aspect) <CAESAR Villalobos Last Filed: 05/23/22 09:16> Palpation (GI): Soft to palpation, no guarding and not rigid <CAESAR Villalobos Last Filed: 05/23/22 09:16> Skin: General skin exam: no rashes or lesions noted <CAESAR Villalobos Last Filed: 05/23/22 09:16> Neuro: Other: more alert this morning <Keli Zelaya PA-C - Last Filed: 05/23/22 09:16> General: moves all extremities <Keli Zelaya PA-C - Last Filed: 05/23/22 09:16> Extrem: General: Yes no clubbing, cyanosis or edema <Keli Zelaya PA-C - Last Filed: 05/23/22 09:16> Objective Data Active Medications Acetaminophen (Acetaminophen 325 Mg Tablet) 650 mg PO Q6H [facility] Last Admin: 05/23/22 08:33 Dose: 650 mg Documented By: BELKIS Amantadine HCl (Amantadine Hcl 100 Mg Capsule) 100 mg PO Q2D [facility] Last Admin: 05/22/22 16:40 Dose: 100 mg Documented By: JARRETT Baclofen (Baclofen 20 Mg Tablet) 20 mg PO BID PRN PRN Reason: pain (scale score 4-6) Buspirone HCl (Buspirone Hcl 10 Mg Tablet) 10 mg PO BID PRN PRN Reason: Anxiety Carbidopa/Levodopa (Carbidopa/Levodopa 25/100 Tablet) 1 tab PO QID [facility] Last Admin: 05/23/22 08:33 Dose: 1 tab Documented By: BELKIS Diltiazem HCl (Diltiazem Hcl Cd 240 Mg Cap.Er.Deg) 240 mg PO DAILY [facility]; Protocol Last Admin: 05/23/22 08:32 Dose: 240 mg Documented By: BELKIS Donepezil HCl (Donepezil Hcl 10 Mg Tablet) 10 mg PO BEDTIME [facility] Last Admin: 05/22/22 20:54 Dose: 10 mg Documented By: CARIE Duloxetine HCl (Duloxetine Hcl 30 Mg Capsule.Dr) 30 mg PO DAILY [facility] Last Admin: 05/23/22 08:32 Dose: 30 mg Documented By: BELKIS Finasteride (Finasteride 5 Mg Tablet) 5 mg PO DAILY [facility] Last Admin: 05/23/22 08:34 Dose: 5 mg Documented By: BELKIS Fluticasone Propionate (Fluticasone Propionate Nasal 16 Gm [place]) 1 spray NOSTRIL-B BID [facility] Last Admin: 05/23/22 08:40 Dose: 1 spray Documented By: BELKIS Metronidazole (Flagyl) 500 mg in 100 mls @ 100 mls/hr IV Q8H [facility] Last Infusion: 05/23/22 07:05 Dose: 0 mls/hr Documented By: BELKIS Levofloxacin (Levaquin) 750 mg in 150 mls @ 100 mls/hr IV Q48H [facility] Last Infusion: 05/21/22 22:23 Dose: 0 mls/hr Documented By: CARMEN Levothyroxine Sodium (Levothyroxine Sodium 50 Mcg Tablet) 50 mcg PO DAILY@0600 [facility] Last Admin: 05/23/22 05:10 Dose: 50 mcg Documented By: CARIE Lidocaine (Lidocaine 4 % Patch Adh..Patch) 1 patch TRANSDERMA DAILY [facility] Last Admin: 05/23/22 08:33 Dose: 1 patch Documented By: BELKIS Magnesium Hydroxide (Milk Of Magnesia 30 Ml Oral.Susp) 30 ml PO DAILY PRN PRN Reason: Constipation Memantine (Memantine Hcl 5 Mg Tablet) 5 mg PO BID [facility] Last Admin: 05/23/22 08:33 Dose: 5 mg Documented By: BELKIS Omeprazole (Omeprazole 20 Mg Capsule.Dr) 20 mg PO DAILY@0630 [facility] Last Admin: 05/23/22 05:10 Dose: 20 mg Documented By: CARIE Ondansetron HCl (Ondansetron Hcl 4 Mg/2 Ml Vial) 4 mg IVPUSH Q8H PRN PRN Reason: Nausea and Vomiting Last Admin: 05/23/22 05:10 Dose: 4 mg Documented By: CARIE Oxycodone HCl (Oxycodone Hcl Immed Release 5 Mg Tablet) 5 mg PO Q4H PRN PRN Reason: Pain, Mild (Pain Scale 1-3) Last Admin: 05/23/22 08:44 Dose: 5 mg Documented By: BELKIS Pharmacy Consult (Consult Rx Perform Med Rec) 1 each MISCELLANE ONCE PRN PRN Reason: Consult order Pregabalin (Pregabalin 150 Mg Capsule) 150 mg PO BID [facility] Last Admin: 05/23/22 08:33 Dose: 150 mg Documented By: BELKIS Ropinirole HCl (Ropinirole Hcl 2 Mg Tablet) 6 mg PO DAILY@1200 [facility] Last Admin: 05/22/22 13:44 Dose: 6 mg Documented By: JARRETT Ropinirole HCl (Ropinirole Hcl 2 Mg Tablet) 12 mg PO BEDTIME [facility] Last Admin: 05/22/22 20:52 Dose: 12 mg Documented By: CARIE Sodium Chloride (0.9 % Sodium Chloride Flush 3 Ml Syringe) 3 ml IVFLUSH QSHIFT [facility] Last Admin: 05/23/22 08:34 Dose: 3 ml Documented By: BELKIS Tamsulosin HCl (Tamsulosin Hcl 0.4 Mg Capsule) 0.4 mg PO BID [facility] Last Admin: 05/23/22 08:32 Dose: 0.4 mg Documented By: BELKIS Tizanidine HCl (Tizanidine Hcl 4 Mg Tablet) 4 mg PO DAILY PRN PRN Reason: muscle spasticity Last Admin: 05/19/22 13:02 Dose: 4 mg Documented By: ASHISH Trazodone HCl (Trazodone Hcl 100 Mg Tablet) 300 mg PO BEDTIME PRN PRN Reason: insomnia Last Admin: 05/22/22 20:54 Dose: 300 mg Documented By: CARIE <Keli Zelaya PA-C - Last Filed: 05/23/22 09:16> Labs CBC & Chem 7: 05/22/22 07:08 05/23/22 08:27 <Keli Zelaya PA-C - Last Filed: 05/23/22 09:16> Labs: Laboratory Results - last 24 hr 05/23/22 08:27 Anion Gap 17 Estim Creat Clear Calc 79.5 Estimated GFR > 60 Random Glucose 123 H Calcium 8.5 <Keli Zelaya PA-C - Last Filed: 05/23/22 09:16> Microbiology Microbiology Results: Microbiology 05/17/22 18:07 Blood Culture - Final Blood - Venous No growth after 5 days. <Keli Zelaya PA-C - Last Filed: 05/23/22 09:16> Procedures Date of Service Date of Service: 05/23/22 <Keli Zelaya PA-C - Last Filed: 05/23/22 09:16> Progress Note: A&P Assessment and plan (1) SIRS (systemic inflammatory response syndrome): Status: Acute <CAESAR Villalobos Last Filed: 05/23/22 09:16> (2) Perforated diverticulum of large intestine: Status: Acute <CAESAR Villalobos Last Filed: 05/23/22 09:16> Assessment and Plan: 71 year old male admitted for perforated diverticulitis now POD #5 s/p nimo procedure. Slowly improving from medical and surgical standpoint. Ostomy continues to function. Incision with some drainage at inferior aspect. Cont IV abx. Will advance to low residue diet. OOB to recliner, IS use, PT. Ostomy education. Tachycardic- ?chronic pain. Will repeat CBC tomorrow am. If remains elevated with tachycardia may need repeat CT to eval for possible abscess. Hospitalists following for multiple medical comorbidities. LILIANA appears resolved. Appreciate input. Will discuss about d/c cason. <Keli Zelaya PA-C - Last Filed: 05/23/22 09:16> 71 year old male admitted for perforated diverticulitis now POD #5 s/p nimo procedure. Slowly improving from medical and surgical standpoint. Ostomy continues to function. Incision with some drainage at inferior aspect. Cont IV abx. Will advance to low residue diet. OOB to recliner, IS use, PT. Ostomy education. Tachycardic- ?chronic pain. Will repeat CBC tomorrow am. If remains elevated with tachycardia may need repeat CT to eval for possible abscess. Hospitalists following for multiple medical comorbidities. LILIANA appears resolved. Appreciate input. Will discuss about d/c cason. Agree with the above assessment and plan. Advance to regular low fiber diet. D/C cason catheter. Encouraged OOB and ambulation. <Aric Mcneill MD - Last Filed: 05/23/22 11:46> Time Spent With Patient Time: Total time managing care of this patient today ____ minutes. <CAESAR Villalobos Last Filed: 05/23/22 09:16> Quality Stroke Does the patient have a stroke diagnosis?: No <CAESAR Villalobos Last Filed: 05/23/22 09:16> VTE Prior VTE?: No <Keli Zelaya PA-C - Last Filed: 05/23/22 09:16> VTE Risk Level:: Surgical - high <Keli Zelaya PA-C - Last Filed: 05/23/22 09:16> VTE Device Contraindication: N/A - Device Ordered <Keli Zelaya PA-C - Last Filed: 05/23/22 09:16> VTE Drug Contraindication: N/A - Med Ordered <Keli Zelaya PA-C - Last Filed: 05/23/22 09:16>
--- NOTE | 2022-05-23 09:49 | P.PNIM_ITS ---
Subjective Subjective Date of Service: 05/23/22 Interval History: seen and examined this morning follow up for perforated diverticulitis, LILIANA no overnight events confusion and combativeness resolved Review of Systems Review of Systems: Yes all other systems are reviewed and are negative Constitutional Constitutional: Denies chills and Denies fever(s) Cardiovascular Cardiovascular: Denies chest pain and Denies dyspnea Respiratory Respiratory: Denies dyspnea Gastrointestinal Gastrointestinal: Reports abdominal pain Physical Exam Vital Signs: Vital Signs: Last Vital Signs Temp 98.4 F 05/23/22 08:00 Pulse 118 H 05/23/22 08:00 Resp 20 05/23/22 08:00 BP 138/93 H 05/23/22 08:00 Pulse Ox 95 05/23/22 08:00 O2 Del Method 05/23/22 08:00 O2 Flow Rate 2 05/22/22 15:01 BMI result Body Mass Index 31.9 Appearing in no acute distress lung sounds are clear to auscultation heart regular rate rhythm, clear S1, S2 positive bowel sounds, abdomen is soft, nontender, colostomy neuro patient is alert x3, no focal deficits Objective Data Active Medications Acetaminophen (Acetaminophen 325 Mg Tablet) 650 mg PO Q6H [facility] Last Admin: 05/23/22 08:33 Dose: 650 mg Documented By: BELKIS Amantadine HCl (Amantadine Hcl 100 Mg Capsule) 100 mg PO Q2D [facility] Last Admin: 05/22/22 16:40 Dose: 100 mg Documented By: JARRETT Baclofen (Baclofen 20 Mg Tablet) 20 mg PO BID PRN PRN Reason: pain (scale score 4-6) Buspirone HCl (Buspirone Hcl 10 Mg Tablet) 10 mg PO BID PRN PRN Reason: Anxiety Carbidopa/Levodopa (Carbidopa/Levodopa 25/100 Tablet) 1 tab PO QID [facility] Last Admin: 05/23/22 08:33 Dose: 1 tab Documented By: BELKIS Diltiazem HCl (Diltiazem Hcl Cd 240 Mg Cap.Er.Deg) 240 mg PO DAILY [facility]; Protocol Last Admin: 05/23/22 08:32 Dose: 240 mg Documented By: BELKIS Donepezil HCl (Donepezil Hcl 10 Mg Tablet) 10 mg PO BEDTIME [facility] Last Admin: 05/22/22 20:54 Dose: 10 mg Documented By: CARIE Duloxetine HCl (Duloxetine Hcl 30 Mg Capsule.) 30 mg PO DAILY [facility] Last Admin: 05/23/22 08:32 Dose: 30 mg Documented By: BELKIS Finasteride (Finasteride 5 Mg Tablet) 5 mg PO DAILY [facility] Last Admin: 05/23/22 08:34 Dose: 5 mg Documented By: BELKIS Fluticasone Propionate (Fluticasone Propionate Nasal 16 Gm [place]) 1 spray NOSTRIL-B BID [facility] Last Admin: 05/23/22 08:40 Dose: 1 spray Documented By: BELKIS Metronidazole (Flagyl) 500 mg in 100 mls @ 100 mls/hr IV Q8H [facility] Last Infusion: 05/23/22 07:05 Dose: 0 mls/hr Documented By: BELKIS Levofloxacin (Levaquin) 750 mg in 150 mls @ 100 mls/hr IV Q48H [facility] Last Infusion: 05/21/22 22:23 Dose: 0 mls/hr Documented By: CARMEN Levothyroxine Sodium (Levothyroxine Sodium 50 Mcg Tablet) 50 mcg PO DAILY@0600 [facility] Last Admin: 05/23/22 05:10 Dose: 50 mcg Documented By: CARIE Lidocaine (Lidocaine 4 % Patch Adh..Patch) 1 patch TRANSDERMA DAILY [facility] Last Admin: 05/23/22 08:33 Dose: 1 patch Documented By: BELKIS Magnesium Hydroxide (Milk Of Magnesia 30 Ml Oral.Susp) 30 ml PO DAILY PRN PRN Reason: Constipation Memantine (Memantine Hcl 5 Mg Tablet) 5 mg PO BID [facility] Last Admin: 05/23/22 08:33 Dose: 5 mg Documented By: BELKIS Omeprazole (Omeprazole 20 Mg Capsule.) 20 mg PO DAILY@0630 [facility] Last Admin: 05/23/22 05:10 Dose: 20 mg Documented By: CARIE Ondansetron HCl (Ondansetron Hcl 4 Mg/2 Ml Vial) 4 mg IVPUSH Q8H PRN PRN Reason: Nausea and Vomiting Last Admin: 05/23/22 05:10 Dose: 4 mg Documented By: CARIE Oxycodone HCl (Oxycodone Hcl Immed Release 5 Mg Tablet) 5 mg PO Q4H PRN PRN Reason: Pain, Mild (Pain Scale 1-3) Last Admin: 05/23/22 08:44 Dose: 5 mg Documented By: BELKIS Pharmacy Consult (Consult Rx Perform Med Rec) 1 each MISCELLANE ONCE PRN PRN Reason: Consult order Pregabalin (Pregabalin 150 Mg Capsule) 150 mg PO BID [facility] Last Admin: 05/23/22 08:33 Dose: 150 mg Documented By: BELKIS Ropinirole HCl (Ropinirole Hcl 2 Mg Tablet) 6 mg PO DAILY@1200 [facility] Last Admin: 05/22/22 13:44 Dose: 6 mg Documented By: JARRETT Ropinirole HCl (Ropinirole Hcl 2 Mg Tablet) 12 mg PO BEDTIME [facility] Last Admin: 05/22/22 20:52 Dose: 12 mg Documented By: CARIE Sodium Chloride (0.9 % Sodium Chloride Flush 3 Ml Syringe) 3 ml IVFLUSH QSHIFT [facility] Last Admin: 05/23/22 08:34 Dose: 3 ml Documented By: BELKIS Tamsulosin HCl (Tamsulosin Hcl 0.4 Mg Capsule) 0.4 mg PO BID [facility] Last Admin: 05/23/22 08:32 Dose: 0.4 mg Documented By: BELKIS Tizanidine HCl (Tizanidine Hcl 4 Mg Tablet) 4 mg PO DAILY PRN PRN Reason: muscle spasticity Last Admin: 05/19/22 13:02 Dose: 4 mg Documented By: ASHISH Trazodone HCl (Trazodone Hcl 100 Mg Tablet) 300 mg PO BEDTIME PRN PRN Reason: insomnia Last Admin: 05/22/22 20:54 Dose: 300 mg Documented By: CARIE Labs 05/22/22 07:08 05/23/22 08:27 Labs: Laboratory Results - last 24 hr 05/23/22 08:27 Anion Gap 17 Estim Creat Clear Calc 79.5 Estimated GFR > 60 Random Glucose 123 H Calcium 8.5 Microbiology Microbiology Results: Microbiology 05/17/22 18:07 Blood Culture - Final Blood - Venous No growth after 5 days. Assessment and Plan (1) Perforated diverticulum of large intestine: Status: Acute (2) LILIANA (acute kidney injury): Status: Acute Plan This is a 71 year old male with history of Parkinson's disease, chronic back pain, HTN, BPH, hypothyroidism, recent admission for PNA and fusobacterium bacteremia who presented to the ED with abdominal pain found to have perforated diverticulitis with intraabdominal abscess, LILIANA s/p exploratory laparotomy/Milla procedure Hypernatremia D5W stopped sodium 152 follow sodium closely consult nephrology is no improvement toxic metabolic encaphalopathy. resolved r/t feculent peritonitis, abscess collection, LILIANA, multiple sedating meds perforated diverticulitis/perotonitis/abdominal abscess s/p ex lab, Milla procedure 2/2 management per surgical team follow intra-abdominal abscess cultures continue IV levaquin, flagyl, renally dosed advance diet as per surgery LILIANA. Resolved creat as high as 5.08, pot 5.4 no obstruction on imaging. likely ATN from r/t infection, renal hypoperfusion initial plan was for HD but was unable to place cath due to severe encephalopathy, now not needed Hyperkalemia. Resolved dose of lokelma given 2/2 follow BMP Bacteremia-coag neg staph contaminant stop vancomycin chronic pain pain/RLS May continue all medications at this time, renally dose if needed Parksinon's disease/dementia namenda, amantadine dose decreased continue aricept, sinemet adjust med doses based on renal function BPH cason in place continue proscar, flomax HTN continue diltiezem hold lisinopril FRANCES not complaint with CPAP at baseline Thank you for allowing us to participate in the care of this patient. Medical c onsultation complete, will sign off Attending - dr. Tapia Time Spent With Patient Time: Total time managing care of this patient today ____ minutes. Quality Stroke Does the patient have a stroke diagnosis?: No VTE Prior VTE?: No VTE Risk Level:: Surgical - high VTE Device Contraindication: N/A - Device Ordered VTE Drug Contraindication: N/A - Med Ordered
--- NOTE | 2022-05-23 10:05 | P.PNNP_ITS ---
Subjective Subjective Date of Service: 05/24/22 Interval history: Events noted Physical Exam Vital Signs: Vital Signs: Last Vital Signs Temp 98.4 F 05/23/22 08:00 Pulse 118 H 05/23/22 08:00 Resp 20 05/23/22 08:00 BP 138/93 H 05/23/22 08:00 Pulse Ox 95 05/23/22 08:00 O2 Del Method 05/23/22 08:00 O2 Flow Rate 2 05/22/22 15:01 BMI result Body Mass Index 31.9 Const: General: cooperative Resp: Other: decreased respiratory effort, diminished breath sounds Cardio: Rate: regular rate Rhythm: regular rhythm Heart sounds: S1 normal heart sound present and S2 normal heart sound present GI: Other: midline abdominal incision with c/d/i dressing; softly distended, avis- incisional tenderness : Other: cason in place draining yellow urine Neuro: Other: able to move all 4 extremities; sleepy,difficult for full neuro eval, following commands, tongue midline, face symmetrical. no focal deficits apprecitated Extrem: General: Yes normal to inspection and Yes no clubbing, cyanosis or edema Psych: Appearance: grossly normal Objective Data Labs 05/22/22 07:08 05/23/22 08:27 Labs: Laboratory Results - last 24 hr 05/22/22 05/23/22 17:59 08:27 Sodium 152 H 152 H Potassium 3.8 Chloride 110 H Carbon Dioxide 29 Anion Gap 17 BUN 40 H Creatinine 0.91 Estim Creat Clear Calc 79.5 Estimated GFR > 60 Random Glucose 123 H Calcium 8.5 Microbiology Microbiology Results: Microbiology 05/17/22 18:07 Blood - Venous Blood Culture - Final No growth after 5 days. 05/18/22 08:43 Abscess Intra-abdominal Gram Stain - Final 05/18/22 08:43 Abscess Intra-abdominal Routine Culture - Final 05/17/22 19:37 Blood - Venous Blood Culture - Final Coag negative Staphylococcus 05/17/22 22:50 Urine clean catch - Urine king top Urine Culture - Final No growth. Procedures Date of Service Date of Service: 05/23/22 Assessment & Plan Assessment and plan (1) LILIANA (acute kidney injury): Status: Acute (2) Perforated diverticulum of large intestine: Status: Acute Plan 71-year-old male with a history of HTN, HLD, Parkinsons, and Chronic Pain on chronic Naproxen and Opioids who presented to the emergency department with abdominal pain found to have perforated diverticulitis. He underwent exploratory laparotomy/Milla procedure secondary to perforated sigmoid diverticulitis with multiple pelvic abscesses.?Course now complicated by LILIANA, Hyperkalemia and Oliguria all refractory to resuscitation and Abx efforts. Course then complicated by hyperactive delirium complicating a safe temporary dialysis catheter placement. Patient was therefore managed medically with bicarbonate, diuretics. His Acidsois is stable and Hyperkalemia resolved. He is no longer oliguric, but GFR is poor. 1. Non-Oliguric LILIANA baseline Cr 0.6mg/dL Cr rising >5mg/dL CT imaging ruled out obstruction U/A with granular MBC sediment c/w tubular necrosis. Overall I high suspect ATN in the setting of severe sepsis, hemodynamic compromise, renal hypoperfusion, cytokine storm, decreased PO intake and ongoing BID Naproxen Glomerular pathology unlikely AIN cannot be ruled out, but does not necessarily fit the picture Obstruction ruled out Plan: - will continue current medical measures seeing this ATN through. - Lokelma 10g PRN K >5.0 -Keep I > O with D5W and encourage PO water intake Keep D5W for 1 more day Time Spent With Patient Time: Total time managing care of this patient today ____ minutes. Progress Note: Quality Stroke Does the patient have a stroke diagnosis?: No
[2022-05-23] MEDS: rOPINIRole HCL 2 MG TABLET 6 MG PO (12:45)
[2022-05-23 15:19] LABS: Sodium 147 mmol/L (135-145)
[2022-05-23 16:00] VITALS: BP 137/74; PULSE 92; RESP 19; TEMP 37.1; O2SAT 91
[2022-05-23] MEDS: Donepezil HCl 10 MG TABLET PO (21:17)
[2022-05-23] MEDS: rOPINIRole HCL 2 MG TABLET 12 MG PO (21:19)
[2022-05-23] MEDS: levoFLOXacin/D5W 750 MG/150 ML PIGGYBACK 100 MG IV (21:22)
[2022-05-23 23:44] VITALS: BP 132/75; PULSE 97; RESP 20; TEMP 37.2; O2SAT 95
[2022-05-24] MEDS: oxyCODONE HCl Immed Release 5 MG TABLET PO ×5 (00:55→21:14)
[2022-05-24 03:18] VITALS: BP 142/72; PULSE 102; RESP 20; TEMP 37.4; O2SAT 94
[2022-05-24] MEDS: Levothyroxine Sodium 50 MCG TABLET PO (05:22)
[2022-05-24] MEDS: Omeprazole 20 MG CAPSULE.DR PO (05:22)
[2022-05-24] MEDS: metroNIDAZOLE/NS 500 MG/100 ML PIGGYBACK 100 MG IV ×3 (06:17→21:15)
[2022-05-24] MEDS: TiZANidine HCL 4 MG TABLET PO (06:21)
[2022-05-24 06:24] LABS: MANUAL DIFF FLAG NO
[2022-05-24 06:44] LABS: Basophils Absolute Auto 0.1 X10*3/uL (0.0-0.2); Basophils Percent Auto 0.5 % (0-2); Eosinophils Absolute Auto 0.5 X10*3/uL (0.0-0.4); Eosinophils Percent Auto 2.9 % (0-4); Hematocrit 35.5 % (42.0-52.0); Hemoglobin 11.2 g/dl (14.0-18.0); Imm Gran Abs Auto 0.84 X10*3/uL (0.00-0.03); Imm Gran Pct Auto 4.6 % (0.0-0.4); Lymphocytes Absolute Auto 1.4 X10*3/uL (1.2-4.9); Lymphocytes Percent Auto 7.4 % (20-40); Mean Corpuscular HGB Conc 31.5 g/dl (31.0-36.0); Mean Corpuscular Hemoglobin 31.5 pg (27.0-33.0); Mean Corpuscular Volume 99.7 fL (80.0-98.0); Mean Platelet Volume 8.8 fL (9.4-12.4); Monocytes Absolute Auto 0.9 X10*3/uL (0.1-1.2); Monocytes Percent Auto 4.7 % (2-11); Neutrophils Absolute Auto 14.8 x10*3/uL (2.0-8.3); Neutrophils Percent Auto 79.9 % (45-73); Platelet Count 413 X10*3/uL (160-400); Red Blood Count 3.56 X10*6/uL (4.60-5.80); Red Cell Distribution Width 14.5 % (11.0-16.0); White Blood Count 18.5 X10*3/uL (4.8-10.8)
[2022-05-24 07:31] VITALS: BP 142/80; PULSE 100; RESP 16; TEMP 37.4; O2SAT 92
[2022-05-24] MEDS: dilTIAZem HCL CD 240 MG CAP.ER.DEG PO (10:02)
[2022-05-24] MEDS: Tamsulosin HCL 0.4 MG CAPSULE PO ×2 (10:03→21:13)
[2022-05-24] MEDS: Memantine HCl 5 MG TABLET PO ×2 (10:03→21:13)
[2022-05-24] MEDS: Pregabalin 150 MG CAPSULE PO ×2 (10:03→21:11)
[2022-05-24] MEDS: Carbidopa/Levodopa 25/100 TABLET 1 TAB PO ×4 (10:03→21:13)
[2022-05-24] MEDS: DULoxetine HCl 30 MG CAPSULE.DR PO (10:03)
[2022-05-24] MEDS: Acetaminophen 325 MG TABLET 650 MG PO ×3 (10:03→21:15)
[2022-05-24] MEDS: Lidocaine 4 % Patch ADH..PATCH 1 PATCH TRANSDERMA (10:04)
[2022-05-24] MEDS: 0.9 % Sodium Chloride Flush 3 ML SYRINGE IVFLUSH ×3 (10:04→22:52)
[2022-05-24] MEDS: Finasteride 5 MG TABLET PO (10:04)
[2022-05-24] MEDS: Fluticasone Propionate Nasal 16 GM SPRAY 1 SPRAY NOSTRIL-B ×2 (10:05→22:51)
--- NOTE | 2022-05-24 10:43 | P.PNGS_ITS ---
Subjective Subjective Date of Service: 05/24/22 <Keli Zelaya PA-C - Last Filed: 05/24/22 10:55> 05/24/22 <Aric Mcneill MD - Last Filed: 05/24/22 13:45> Interval history: Feels ok this morning. Tolerating solid diet. Was OOB to recliner yesterday and is eating meals there. Unable to participate in PT yesterday due to HR. <Keli Zelaya PA-C - Last Filed: 05/24/22 10:55> Physical Exam Vital Signs: Vital Signs: Last Vital Signs Temp 99.3 F 05/24/22 07:31 Pulse 100 05/24/22 07:31 Resp 16 05/24/22 07:31 BP 142/80 H 05/24/22 07:31 Pulse Ox 92 05/24/22 07:31 O2 Del Method 05/24/22 07:31 O2 Flow Rate 2 05/22/22 15:01 BMI result Body Mass Index 31.9 <Keli Zelaya PA-C - Last Filed: 05/24/22 10:55> Const: General: comfortable, no acute distress and alert <Keli Zelaya PA-C - Last Filed: 05/24/22 10:55> Resp: Effort & Inspection: normal respiratory effort <CAESAR Villalobos Last Filed: 05/24/22 10:55> GI: Other: ostomy appliance with soft stool; drainage persists from midline wound <Carley Zelaya PA-C - Last Filed: 05/24/22 10:55> Inspection: No distended and Yes incision (no erythema, small opening inferior aspect where chris removed) <Keli Zelaya PA-C - Last Filed: 05/24/22 10:55> Palpation (GI): Soft to palpation, no guarding and not rigid <CAESAR Wilson Last Filed: 05/24/22 10:55> Percussion: Yes normal to percussion <CAESAR Villalobos Last Filed: 05/24/22 10:55> Skin: General skin exam: no rashes or lesions noted <Keli Zelaya PA-C - Last Filed: 05/24/22 10:55> Objective Data Active Medications Acetaminophen (Acetaminophen 325 Mg Tablet) 650 mg PO Q6H [facility] Last Admin: 05/24/22 10:03 Dose: 650 mg Documented By: DENISHA Amantadine HCl (Amantadine Hcl 100 Mg Capsule) 100 mg PO Q2D [facility] Last Admin: 05/22/22 16:40 Dose: 100 mg Documented By: JARRETT Baclofen (Baclofen 20 Mg Tablet) 20 mg PO BID PRN PRN Reason: pain (scale score 4-6) Buspirone HCl (Buspirone Hcl 10 Mg Tablet) 10 mg PO BID PRN PRN Reason: Anxiety Carbidopa/Levodopa (Carbidopa/Levodopa 25/100 Tablet) 1 tab PO QID [facility] Last Admin: 05/24/22 10:03 Dose: 1 tab Documented By: DENISHA Diltiazem HCl (Diltiazem Hcl Cd 240 Mg Cap.Er.Deg) 240 mg PO DAILY [facility]; Protocol Last Admin: 05/24/22 10:02 Dose: 240 mg Documented By: DENISHA Donepezil HCl (Donepezil Hcl 10 Mg Tablet) 10 mg PO BEDTIME [facility] Last Admin: 05/23/22 21:17 Dose: 10 mg Documented By: NOELLE Duloxetine HCl (Duloxetine Hcl 30 Mg Capsule.Dr) 30 mg PO DAILY [facility] Last Admin: 05/24/22 10:03 Dose: 30 mg Documented By: DENISHA Finasteride (Finasteride 5 Mg Tablet) 5 mg PO DAILY [facility] Last Admin: 05/24/22 10:04 Dose: 5 mg Documented By: DENISHA Fluticasone Propionate (Fluticasone Propionate Nasal 16 Gm [place]) 1 spray NOSTRIL-B BID [facility] Last Admin: 05/24/22 10:05 Dose: 1 spray Documented By: DENISHA Metronidazole (Flagyl) 500 mg in 100 mls @ 100 mls/hr IV Q8H [facility] Last Infusion: 05/24/22 10:05 Dose: 0 mls/hr Documented By: DENISHA Levofloxacin (Levaquin) 750 mg in 150 mls @ 100 mls/hr IV Q48H [facility] Last Infusion: 05/23/22 23:42 Dose: 0 mls/hr Documented By: LIV Levothyroxine Sodium (Levothyroxine Sodium 50 Mcg Tablet) 50 mcg PO DAILY@0600 [facility] Last Admin: 05/24/22 05:22 Dose: 50 mcg Documented By: LIV Lidocaine (Lidocaine 4 % Patch Adh..Patch) 1 patch TRANSDERMA DAILY [facility] Last Admin: 05/24/22 10:04 Dose: 1 patch Documented By: DENISHA Magnesium Hydroxide (Milk Of Magnesia 30 Ml Oral.Susp) 30 ml PO DAILY PRN PRN Reason: Constipation Memantine (Memantine Hcl 5 Mg Tablet) 5 mg PO BID [facility] Last Admin: 05/24/22 10:03 Dose: 5 mg Documented By: DENISHA Omeprazole (Omeprazole 20 Mg Capsule.Dr) 20 mg PO DAILY@0630 [facility] Last Admin: 05/24/22 05:22 Dose: 20 mg Documented By: LIV Ondansetron HCl (Ondansetron Hcl 4 Mg/2 Ml Vial) 4 mg IVPUSH Q8H PRN PRN Reason: Nausea and Vomiting Last Admin: 05/23/22 05:10 Dose: 4 mg Documented By: JUANI-JOZEMarycruz Oxycodone HCl (Oxycodone Hcl Immed Release 5 Mg Tablet) 5 mg PO Q4H PRN PRN Reason: Pain, Mild (Pain Scale 1-3) Last Admin: 05/24/22 10:03 Dose: 5 mg Documented By: DENISHA Pharmacy Consult (Consult Rx Perform Med Rec) 1 each MISCELLANE ONCE PRN PRN Reason: Consult order Pregabalin (Pregabalin 150 Mg Capsule) 150 mg PO BID [facility] Last Admin: 05/24/22 10:03 Dose: 150 mg Documented By: DENISHA Ropinirole HCl (Ropinirole Hcl 2 Mg Tablet) 6 mg PO DAILY@1200 [facility] Last Admin: 05/23/22 12:45 Dose: 6 mg Documented By: BELKIS Ropinirole HCl (Ropinirole Hcl 2 Mg Tablet) 12 mg PO BEDTIME [facility] Last Admin: 05/23/22 21:19 Dose: 12 mg Documented By: DANUTAEALion Sodium Chloride (0.9 % Sodium Chloride Flush 3 Ml Syringe) 3 ml IVFLUSH QSHIFT [facility] Last Admin: 05/24/22 10:04 Dose: 3 ml Documented By: DENISHA Tamsulosin HCl (Tamsulosin Hcl 0.4 Mg Capsule) 0.4 mg PO BID [facility] Last Admin: 05/24/22 10:03 Dose: 0.4 mg Documented By: DENISHA Tizanidine HCl (Tizanidine Hcl 4 Mg Tablet) 4 mg PO DAILY PRN PRN Reason: muscle spasticity Last Admin: 05/24/22 06:21 Dose: 4 mg Documented By: LIV Trazodone HCl (Trazodone Hcl 100 Mg Tablet) 300 mg PO BEDTIME PRN PRN Reason: insomnia Last Admin: 05/22/22 20:54 Dose: 300 mg Documented By: CARIE <Keli Zelaya PA-C - Last Filed: 05/24/22 10:55> Labs CBC & Chem 7: 05/24/22 06:07 05/23/22 15:04 <Keli Zelaya PA-C - Last Filed: 05/24/22 10:55> Labs: Laboratory Results - last 24 hr 05/24/22 06:07 MCV 99.7 H MCH 31.5 MCHC 31.5 RDW 14.5 Plt Count 413 H MPV 8.8 L Immature Gran % (Auto) 4.6 H Neut % (Auto) 79.9 H Lymph % (Auto) 7.4 L [place] % (Auto) 4.7 Eos % (Auto) 2.9 Baso % (Auto) 0.5 Lymph # (Auto) 1.4 [place] # (Auto) 0.9 Eos # (Auto) 0.5 H Baso # (Auto) 0.1 Abs Immat Gran (auto) 0.84 H Absolute Neuts (auto) 14.8 H Absolute Nucleated RBC 0.000 Nucleated RBC % (auto) 0.0 <Keli Zelaya PA-C - Last Filed: 05/24/22 10:55> Procedures Date of Service Date of Service: 05/24/22 <Keli Zelaya PA-C - Last Filed: 05/24/22 10:55> Progress Note: A&P Assessment and plan (1) Perforated diverticulum of large intestine: Status: Acute <Keli Zelaya PA-C - Last Filed: 05/24/22 10:55> Assessment and Plan: 71 year old male admitted for perforated diverticulitis now POD #6 s/p nimo procedure. Slowly improving from medical and surgical standpoint however WBC increased this am to 18. Will therefore obtain CT scan abd/pelvis with IV contrast to assess for abscess. Cont IV abx. Encouraged OOB to recliner, IS use, PT. Ostomy education. Further plan dependent on CT scan. LILIANA resolved. Clinically septic upon admission due to hypotension, left shift of WBC and LILIANA with presence of perforated diverticulitis. Now resolved. <Keli Zelaya PA-C - Last Filed: 05/24/22 10:55> 71 year old male admitted for perforated diverticulitis now POD #6 s/p nimo procedure. Slowly improving from medical and surgical standpoint however WBC increased this am to 18. Will therefore obtain CT scan abd/pelvis with IV contrast to assess for abscess. Cont IV abx. Encouraged OOB to recliner, IS use, PT. Ostomy education. Further plan dependent on CT scan. LILIANA resolved. Clinically septic upon admission due to hypotension, left shift of WBC and LILIANA with presence of perforated diverticulitis. Now resolved. Agree with the above assessment and plan. Elevated WBC this morning, agree with CT abdomen and pelvis to evaluate for abscess. Discussed with patient's as well. <Aric Mcneill MD - Last Filed: 05/24/22 13:45> Time Spent With Patient Time: Total time managing care of this patient today ____ minutes. <Keli Zelaya PA-C - Last Filed: 05/24/22 10:55> Quality Stroke Does the patient have a stroke diagnosis?: No <CAESAR Villalobos Last Filed: 05/24/22 10:55> VTE Prior VTE?: No <Keli Zelaya PA-C - Last Filed: 05/24/22 10:55> VTE Risk Level:: Surgical - high <CAESAR Villalobos Last Filed: 05/24/22 10:55> VTE Device Contraindication: N/A - Device Ordered <CAESAR Villalobos Last Filed: 05/24/22 10:55> VTE Drug Contraindication: N/A - Med Ordered <Keli Zelaya PA-C - Last Filed: 05/24/22 10:55>
--- NOTE | 2022-05-24 11:15 | P.PNNP_ITS ---
Subjective Subjective Date of Service: 05/25/22 Interval history: Events noted c/o Abd pain Had fever Await CT Physical Exam Vital Signs: Vital Signs: Last Vital Signs Temp 99.3 F 05/24/22 07:31 Pulse 100 05/24/22 07:31 Resp 16 05/24/22 07:31 BP 142/80 H 05/24/22 07:31 Pulse Ox 92 05/24/22 07:31 O2 Del Method 05/24/22 07:31 O2 Flow Rate 2 05/22/22 15:01 BMI result Body Mass Index 31.9 Const: General: cooperative Resp: Other: decreased respiratory effort, diminished breath sounds Cardio: Rate: regular rate Rhythm: regular rhythm Heart sounds: S1 normal heart sound present and S2 normal heart sound present GI: Other: midline abdominal incision with c/d/i dressing; softly distended, avis- incisional tenderness : Other: cason in place draining yellow urine Neuro: Other: able to move all 4 extremities; sleepy,difficult for full neuro eval, following commands, tongue midline, face symmetrical. no focal deficits apprecitated Extrem: General: Yes normal to inspection and Yes no clubbing, cyanosis or edema Psych: Appearance: grossly normal Objective Data Labs 05/24/22 06:07 05/23/22 15:04 Labs: Laboratory Results - last 24 hr 05/23/22 05/24/22 15:04 06:07 WBC 18.5 H RBC 3.56 L Hgb 11.2 L Hct 35.5 L MCV 99.7 H MCH 31.5 MCHC 31.5 RDW 14.5 Plt Count 413 H MPV 8.8 L Immature Gran % (Auto) 4.6 H Neut % (Auto) 79.9 H Lymph % (Auto) 7.4 L [place] % (Auto) 4.7 Eos % (Auto) 2.9 Baso % (Auto) 0.5 Lymph # (Auto) 1.4 [place] # (Auto) 0.9 Eos # (Auto) 0.5 H Baso # (Auto) 0.1 Abs Immat Gran (auto) 0.84 H Absolute Neuts (auto) 14.8 H Absolute Nucleated RBC 0.000 Nucleated RBC % (auto) 0.0 Sodium 147 H Microbiology Microbiology Results: Microbiology 05/17/22 18:07 Blood - Venous Blood Culture - Final No growth after 5 days. 05/18/22 08:43 Abscess Intra-abdominal Gram Stain - Final 05/18/22 08:43 Abscess Intra-abdominal Routine Culture - Final 05/17/22 19:37 Blood - Venous Blood Culture - Final Coag negative Staphylococcus 05/17/22 22:50 Urine clean catch - Urine king top Urine Culture - Final No growth. Procedures Date of Service Date of Service: 05/24/22 Assessment & Plan Assessment and plan (1) LILIANA (acute kidney injury): Status: Acute (2) Perforated diverticulum of large intestine: Status: Acute Plan 71-year-old male with a history of HTN, HLD, Parkinsons, and Chronic Pain on chronic Naproxen and Opioids who presented to the emergency department with abdominal pain found to have perforated diverticulitis. He underwent exploratory laparotomy/Milla procedure secondary to perforated sigmoid diverticulitis with multiple pelvic abscesses.?Course now complicated by LILIANA, Hyperkalemia and Oliguria all refractory to resuscitation and Abx efforts. Course then complicated by hyperactive delirium complicating a safe temporary dialysis catheter placement. Patient was therefore managed medically with bicarbonate, diuretics. His Acidsois is stable and Hyperkalemia resolved. He is no longer oliguric, but GFR is poor. 1. Non-Oliguric LILIANA baseline Cr 0.6mg/dL Cr rising >5mg/dL CT imaging ruled out obstruction U/A with granular MBC sediment c/w tubular necrosis. ATN in the setting of severe sepsis, hemodynamic compromise, renal hypoperfusion, cytokine storm, decreased PO intake and ongoing BID Naproxen Glomerular pathology unlikely Obstruction ruled out Plan: - will continue current medical measures seeing this ATN through. - Lokelma 10g PRN K >5.0 -Keep I > O with D5W and encourage PO water intake Keep D5W for [address] Time Spent With Patient Time: Total time managing care of this patient today ____ minutes. Progress Note: Quality Stroke Does the patient have a stroke diagnosis?: No
[2022-05-24] MEDS: iohexoL 350 MG/ML 100 ML INFUS..BTL 85 ML IV (11:49)
[2022-05-24] MEDS: rOPINIRole HCL 2 MG TABLET 6 MG PO (12:05)
[2022-05-24] MEDS: ondansetron HCL 4 MG/2 ML VIAL IVPUSH (12:05)
[2022-05-24 15:27] VITALS: BP 129/75; PULSE 102; RESP 18; TEMP 37.1; O2SAT 94
[2022-05-24] MEDS: amantadine HCL 100 MG CAPSULE PO (16:36)
[2022-05-24] MEDS: rOPINIRole HCL 2 MG TABLET 12 MG PO (21:13)
[2022-05-24] MEDS: Donepezil HCl 10 MG TABLET PO (21:13)
[2022-05-24] MEDS: traZODone HCL 100 MG TABLET 300 MG PO (21:13)
[2022-05-24 23:38] VITALS: BP 143/78; PULSE 102; RESP 20; TEMP 36.9; O2SAT 94
[2022-05-25] MEDS: oxyCODONE HCl Immed Release 5 MG TABLET PO ×6 (01:33→23:35)
[2022-05-25] MEDS: Levothyroxine Sodium 50 MCG TABLET PO (05:45)
[2022-05-25] MEDS: metroNIDAZOLE/NS 500 MG/100 ML PIGGYBACK 100 MG IV ×3 (05:45→23:35)
[2022-05-25] MEDS: Omeprazole 20 MG CAPSULE.DR PO (05:45)
[2022-05-25] MEDS: Acetaminophen 325 MG TABLET 650 MG PO ×4 (05:46→23:34)
[2022-05-25 07:31] VITALS: BP 134/66; PULSE 86; RESP 20; TEMP 36.8; O2SAT 92
--- NOTE | 2022-05-25 08:13 | P.PNGS_ITS ---
Subjective Subjective Date of Service: 05/25/22 Patient reports: no new complaints, feels better and bowel movement Interval history: Overall patient feels improved today with less abdominal distension and no nausea or vomiting. He denies abdominal pain. gave him a bath today feels much improved. Physical Exam Vital Signs: Vital Signs: Last Vital Signs Temp 98.2 F 05/25/22 07:31 Pulse 86 05/25/22 07:31 Resp 20 05/25/22 07:31 BP 134/66 05/25/22 07:31 Pulse Ox 92 05/25/22 07:31 O2 Del Method 05/25/22 07:31 O2 Flow Rate 2 05/22/22 15:01 BMI result Body Mass Index 31.9 Const: Other: Awake and alert, no acute distress. Resp: Other: Breathing comfortably on room air, no respiratory distress. GI: Other: Abdomen is much softer with no tympany to percussion. Incision is clean and intact. Dressing is dry. Ostomy is patent with stool in bag. Skin: Other: Warm, dry, no rash Objective Data Active Medications Acetaminophen (Acetaminophen 325 Mg Tablet) 650 mg PO Q6H [facility] Last Admin: 05/25/22 05:46 Dose: 650 mg Documented By: ALFRED Amantadine HCl (Amantadine Hcl 100 Mg Capsule) 100 mg PO Q2D [facility] Last Admin: 05/24/22 16:36 Dose: 100 mg Documented By: DENISHA Baclofen (Baclofen 20 Mg Tablet) 20 mg PO BID PRN PRN Reason: pain (scale score 4-6) Buspirone HCl (Buspirone Hcl 10 Mg Tablet) 10 mg PO BID PRN PRN Reason: Anxiety Carbidopa/Levodopa (Carbidopa/Levodopa 25/100 Tablet) 1 tab PO QID [facility] Last Admin: 05/24/22 21:13 Dose: 1 tab Documented By: ALFRED Diltiazem HCl (Diltiazem Hcl Cd 240 Mg Cap.Er.Deg) 240 mg PO DAILY [facility]; Protocol Last Admin: 05/24/22 10:02 Dose: 240 mg Documented By: DENISHA Donepezil HCl (Donepezil Hcl 10 Mg Tablet) 10 mg PO BEDTIME [facility] Last Admin: 05/24/22 21:13 Dose: 10 mg Documented By: ALFRED Duloxetine HCl (Duloxetine Hcl 30 Mg Capsule.) 30 mg PO DAILY [facility] Last Admin: 05/24/22 10:03 Dose: 30 mg Documented By: DENISHA Finasteride (Finasteride 5 Mg Tablet) 5 mg PO DAILY [facility] Last Admin: 05/24/22 10:04 Dose: 5 mg Documented By: DENISHA Fluticasone Propionate (Fluticasone Propionate Nasal 16 Gm [place]) 1 spray NOSTRIL-B BID [facility] Last Admin: 05/24/22 22:51 Dose: 1 spray Documented By: ALFRED Metronidazole (Flagyl) 500 mg in 100 mls @ 100 mls/hr IV Q8H [facility] Last Infusion: 05/25/22 06:51 Dose: 0 mls/hr Documented By: ALFRED Levofloxacin (Levaquin) 750 mg in 150 mls @ 100 mls/hr IV Q48H [facility] Last Infusion: 05/23/22 23:42 Dose: 0 mls/hr Documented By: LIV Levothyroxine Sodium (Levothyroxine Sodium 50 Mcg Tablet) 50 mcg PO DAILY@0600 [facility] Last Admin: 05/25/22 05:45 Dose: 50 mcg Documented By: ALFRED Lidocaine (Lidocaine 4 % Patch Adh..Patch) 1 patch TRANSDERMA DAILY [facility] Last Admin: 05/24/22 10:04 Dose: 1 patch Documented By: DENISHA Magnesium Hydroxide (Milk Of Magnesia 30 Ml Oral.Susp) 30 ml PO DAILY PRN PRN Reason: Constipation Memantine (Memantine Hcl 5 Mg Tablet) 5 mg PO BID [facility] Last Admin: 05/24/22 21:13 Dose: 5 mg Documented By: ALFRED Omeprazole (Omeprazole 20 Mg Capsule.) 20 mg PO DAILY@0630 [facility] Last Admin: 05/25/22 05:45 Dose: 20 mg Documented By: ALFRED Ondansetron HCl (Ondansetron Hcl 4 Mg/2 Ml Vial) 4 mg IVPUSH Q8H PRN PRN Reason: Nausea and Vomiting Last Admin: 05/24/22 12:05 Dose: 4 mg Documented By: DENISHA Oxycodone HCl (Oxycodone Hcl Immed Release 5 Mg Tablet) 5 mg PO Q4H PRN PRN Reason: Pain, Mild (Pain Scale 1-3) Last Admin: 05/25/22 05:46 Dose: 5 mg Documented By: ALFRED Pharmacy Consult (Consult Rx Perform Med Rec) 1 each MISCELLANE ONCE PRN PRN Reason: Consult order Pregabalin (Pregabalin 150 Mg Capsule) 150 mg PO BID [facility] Last Admin: 05/24/22 21:11 Dose: 150 mg Documented By: ALFRED Ropinirole HCl (Ropinirole Hcl 2 Mg Tablet) 6 mg PO DAILY@1200 [facility] Last Admin: 05/24/22 12:05 Dose: 6 mg Documented By: RIOSCJANA Ropinirole HCl (Ropinirole Hcl 2 Mg Tablet) 12 mg PO BEDTIME [facility] Last Admin: 05/24/22 21:13 Dose: 12 mg Documented By: ALFRED Sodium Chloride (0.9 % Sodium Chloride Flush 3 Ml Syringe) 3 ml IVFLUSH QSHIFT [facility] Last Admin: 05/24/22 22:52 Dose: 3 ml Documented By: ALFRED Tamsulosin HCl (Tamsulosin Hcl 0.4 Mg Capsule) 0.4 mg PO BID [facility] Last Admin: 05/24/22 21:13 Dose: 0.4 mg Documented By: ALFRED Tizanidine HCl (Tizanidine Hcl 4 Mg Tablet) 4 mg PO DAILY PRN PRN Reason: muscle spasticity Last Admin: 05/24/22 06:21 Dose: 4 mg Documented By: LIV Trazodone HCl (Trazodone Hcl 100 Mg Tablet) 300 mg PO BEDTIME PRN PRN Reason: insomnia Last Admin: 05/24/22 21:13 Dose: 300 mg Documented By: ALFRED Labs 05/24/22 06:07 05/23/22 15:[address] scan - abdomen: Radiologist's impression: Impressions Abdomen/Pelvis CT 05/24/22 11:50 IMPRESSION: 1. Left lower quadrant colostomy with Nimo pouch. Small amount of free fluid in the left lower quadrant. No fluid collection. 2. Dilated stomach and small bowel with air-fluid levels. The distal small bowel is decompressed. This may represent ileus in the postoperative state. Fleischner guidelines were followed. CT reviewed. No abscess identified. Gastric distension is noted therefore patient made NPO overnight. Procedures Date of Service Date of Service: 05/25/22 Progress Note: A&P Assessment and plan (1) Perforated diverticulum of large intestine: Status: Acute Plan 71 year old male admitted for perforated diverticulitis now POD #7 s/p nimo procedure. Patient noted to have an elevated WBC to [address] abdomen and pelvis was requested. CT reveals no abscess but does revealed gastric dilatation. Patient was made NPO overnight. This morning he feels much improved and had a large amount of stool produced the ostomy. His abdomen is soft and nondistended this morning with no tympany to percussion. Will restart clear liquids today and recheck labs. Continue ambulation in preparation for return to home. Time Spent With Patient Time: Total time managing care of this patient today ____ minutes. Quality Stroke Does the patient have a stroke diagnosis?: No VTE Prior VTE?: No VTE Risk Level:: Surgical - high VTE Device Contraindication: N/A - Device Ordered VTE Drug Contraindication: N/A - Med Ordered
[2022-05-25 08:19] LABS: MANUAL DIFF FLAG NO
[2022-05-25 08:22] LABS: Basophils Absolute Auto 0.1 X10*3/uL (0.0-0.2); Basophils Percent Auto 0.6 % (0-2); Eosinophils Absolute Auto 0.4 X10*3/uL (0.0-0.4); Hematocrit 35.7 % (42.0-52.0); Hemoglobin 11.4 g/dl (14.0-18.0); Imm Gran Abs Auto 0.97 X10*3/uL (0.00-0.03); Lymphocytes Absolute Auto 1.4 X10*3/uL (1.2-4.9); Lymphocytes Percent Auto 7.2 % (20-40); Mean Corpuscular HGB Conc 31.9 g/dl (31.0-36.0); Mean Corpuscular Hemoglobin 31.7 pg (27.0-33.0); Mean Corpuscular Volume 99.2 fL (80.0-98.0); Mean Platelet Volume 9.2 fL (9.4-12.4); Monocytes Absolute Auto 0.7 X10*3/uL (0.1-1.2); Monocytes Percent Auto 3.3 % (2-11); Neutrophils Absolute Auto 15.9 x10*3/uL (2.0-8.3); Neutrophils Percent Auto 81.9 % (45-73); Platelet Count 412 X10*3/uL (160-400); Red Cell Distribution Width 14.6 % (11.0-16.0); White Blood Count 19.4 X10*3/uL (4.8-10.8)
[2022-05-25] MEDS: Finasteride 5 MG TABLET PO (08:44)
[2022-05-25] MEDS: dilTIAZem HCL CD 240 MG CAP.ER.DEG PO (08:44)
[2022-05-25] MEDS: Lidocaine 4 % Patch ADH..PATCH 1 PATCH TRANSDERMA (08:45)
[2022-05-25] MEDS: Memantine HCl 5 MG TABLET PO ×2 (08:45→20:09)
[2022-05-25] MEDS: Carbidopa/Levodopa 25/100 TABLET 1 TAB PO ×4 (08:45→20:09)
[2022-05-25] MEDS: DULoxetine HCl 30 MG CAPSULE.DR PO (08:45)
[2022-05-25] MEDS: Pregabalin 150 MG CAPSULE PO ×2 (08:45→20:09)
[2022-05-25] MEDS: Tamsulosin HCL 0.4 MG CAPSULE PO ×2 (08:45→20:09)
[2022-05-25] MEDS: 0.9 % Sodium Chloride Flush 3 ML SYRINGE IVFLUSH ×3 (08:46→23:35)
[2022-05-25] MEDS: Fluticasone Propionate Nasal 16 GM SPRAY 1 SPRAY NOSTRIL-B ×2 (08:46→20:09)
[2022-05-25 09:39] LABS: Anion Gap 16 (12-20); Blood Urea Nitrogen 21 mg/dL (9-16); Calcium 7.7 mg/dL (8.4-10.2); Carbon Dioxide 28 mmol/L (22-29); Chloride 110 mmol/L (96-108); Creatinine Clr Calc Pharmacy 106.4; Estimated Glomerular Filt Rate > 60; Glucose Random 89 mg/dL (60-115); Potassium 3.8 mmol/L (3.3-5.1); Sodium 150 mmol/L (135-145)
--- NOTE | 2022-05-25 11:06 | P.PNNP_ITS ---
Subjective Subjective Date of Service: 05/26/22 Interval history: Surgery note appreciated Was NPO Physical Exam Vital Signs: Vital Signs: Last Vital Signs Temp 98.2 F 05/25/22 07:31 Pulse 86 05/25/22 07:31 Resp 20 05/25/22 07:31 BP 134/66 05/25/22 07:31 Pulse Ox 92 05/25/22 07:31 O2 Del Method 05/25/22 07:31 O2 Flow Rate 2 05/22/22 15:01 BMI result Body Mass Index 31.9 Const: General: cooperative Resp: Other: decreased respiratory effort, diminished breath sounds Cardio: Rate: regular rate Rhythm: regular rhythm Heart sounds: S1 normal heart sound present and S2 normal heart sound present GI: Other: midline abdominal incision with c/d/i dressing; softly distended, avis- incisional tenderness : Other: cason in place draining yellow urine Neuro: Other: able to move all 4 extremities; sleepy,difficult for full neuro eval, following commands, tongue midline, face symmetrical. no focal deficits apprecitated Extrem: General: Yes normal to inspection and Yes no clubbing, cyanosis or edema Psych: Appearance: grossly normal Objective Data Labs 05/25/22 07:48 05/25/22 07:48 Labs: Laboratory Results - last 24 hr 05/25/22 05/25/22 07:48 07:48 WBC 19.4 H RBC 3.60 L Hgb 11.4 L Hct 35.7 L MCV 99.2 H MCH 31.7 MCHC 31.9 RDW 14.6 Plt Count 412 H MPV 9.2 L Immature Gran % (Auto) 5.0 H Neut % (Auto) 81.9 H Lymph % (Auto) 7.2 L [place] % (Auto) 3.3 Eos % (Auto) 2.0 Baso % (Auto) 0.6 Lymph # (Auto) 1.4 [place] # (Auto) 0.7 Eos # (Auto) 0.4 Baso # (Auto) 0.1 Abs Immat Gran (auto) 0.97 H Absolute Neuts (auto) 15.9 H Absolute Nucleated RBC 0.000 Nucleated RBC % (auto) 0.0 Sodium 150 H Potassium 3.8 Chloride 110 H Carbon Dioxide 28 Anion Gap 16 BUN 21 H Creatinine 0.68 Estim Creat Clear Calc 106.4 Estimated GFR > 60 Random Glucose 89 Calcium 7.7 L D Microbiology Microbiology Results: Microbiology 05/17/22 18:07 Blood - Venous Blood Culture - Final No growth after 5 days. 05/18/22 08:43 Abscess Intra-abdominal Gram Stain - Final 05/18/22 08:43 Abscess Intra-abdominal Routine Culture - Final 05/17/22 19:37 Blood - Venous Blood Culture - Final Coag negative Staphylococcus 05/17/22 22:50 Urine clean catch - Urine king top Urine Culture - Final No growth. Procedures Date of Service Date of Service: 05/25/22 Assessment & Plan Assessment and plan (1) LILIANA (acute kidney injury): Status: Acute (2) Perforated diverticulum of large intestine: Status: Acute Plan 71-year-old male with a history of HTN, HLD, Parkinsons, and Chronic Pain on chronic Naproxen and Opioids who presented to the emergency department with abdominal pain found to have perforated diverticulitis. He underwent exploratory laparotomy/Milla procedure secondary to perforated sigmoid diverticulitis with multiple pelvic abscesses.?Course now complicated by LILIANA, Hyperkalemia and Oliguria all refractory to resuscitation and Abx efforts. Course then complicated by hyperactive delirium complicating a safe temporary dialysis catheter placement. Patient was therefore managed medically with bicarbonate, diuretics. His Ac idsois is stable and Hyperkalemia resolved. He is no longer oliguric, but GFR is poor. 1. Non-Oliguric LILIANA baseline Cr 0.6mg/dL Cr rising >5mg/dL CT imaging ruled out obstruction U/A with granular MBC sediment c/w tubular necrosis. ATN in the setting of severe sepsis, hemodynamic compromise, renal hypoperfusion, cytokine storm, decreased PO intake and ongoing BID Naproxen Glomerular pathology unlikely Obstruction ruled out Hypernatremia due to free water deficit jeol since he was NPO Plan: - will continue current medical measures seeing this ATN through. - Lokelma 10g PRN K >5.0 -Keep I > O with D5W and encourage PO water intake IV hydration D5W at 80 cc/hr until PO intake is adequate Time Spent With Patient Time: Total time managing care of this patient today ____ minutes. Progress Note: Quality Stroke Does the patient have a stroke diagnosis?: No
[2022-05-25] MEDS: rOPINIRole HCL 2 MG TABLET 6 MG PO (11:31)
[2022-05-25] MEDS: Dextrose 5 % 1,000 ML 80 ML IVCONT (11:37)
[2022-05-25 15:33] VITALS: BP 140/69; PULSE 64; RESP 20; TEMP 36.8; O2SAT 96
[2022-05-25] MEDS: Heparin Sodium,Porcine 5,000 UNIT/ML VIAL 5000 UNIT SUBCUT (16:18)
[2022-05-25] MEDS: TiZANidine HCL 4 MG TABLET PO (16:48)
[2022-05-25] MEDS: Baclofen 20 MG TABLET PO (16:48)
[2022-05-25] MEDS: busPIRone HCl 10 MG TABLET PO (16:49)
[2022-05-25] MEDS: levoFLOXacin/D5W 750 MG/150 ML PIGGYBACK 100 MG IV (20:00)
[2022-05-25] MEDS: rOPINIRole HCL 2 MG TABLET 12 MG PO (20:08)
[2022-05-25] MEDS: Donepezil HCl 10 MG TABLET PO (20:09)
[2022-05-25] MEDS: traZODone HCL 100 MG TABLET 300 MG PO (23:35)
[2022-05-25 23:47] VITALS: BP 146/75; PULSE 89; RESP 20; TEMP 36.6; O2SAT 93
[2022-05-26] MEDS: Dextrose 5 % 1,000 ML 80 ML IVCONT ×2 (02:25→22:23)
[2022-05-26] MEDS: Acetaminophen 325 MG TABLET 650 MG PO ×3 (03:33→22:27)
[2022-05-26] MEDS: oxyCODONE HCl Immed Release 5 MG TABLET PO ×4 (03:33→22:27)
[2022-05-26] MEDS: Heparin Sodium,Porcine 5,000 UNIT/ML VIAL 5000 UNIT SUBCUT ×2 (03:34→17:33)
[2022-05-26 08:00] VITALS: BP 145/87; PULSE 96; RESP 18; TEMP 36.6; O2SAT 92
--- NOTE | 2022-05-26 08:13 | PC.NURSE ---
Received in report that patient has been increasingly confused and removed his own IV overnight. He refused morning lab draws. was made aware. Pt educated on need for IV placement. Will continue to check in with patient
--- NOTE | 2022-05-26 08:36 | PM.PNGS ---
Subjective Subjective Date of Service: 05/26/22 Interval history: Complains that he isnt getting his oxycodone on time and it is sometimes an hour late and he is having severe neck pain. Denies abd pain. Tolerating clear liquids without nausea. Denies bloating. Ostomy functioning with gas and liquid stool in appliance. Physical Exam Vital Signs: Vital Signs: Last Vital Signs Temp 97.9 F 05/26/22 08:00 Pulse 96 05/26/22 08:00 Resp 18 05/26/22 08:00 BP 145/87 H 05/26/22 08:00 Pulse Ox 92 05/26/22 08:00 O2 Del Method 05/26/22 08:00 O2 Flow Rate 2 05/22/22 15:01 BMI result Body Mass Index 31.9 Const: General: comfortable, no acute distress and alert Resp: Effort & Inspection: normal respiratory effort GI: Inspection: Yes distended (mild) and Yes incision (clean, drainage to inferior aspect persists but decreasing) Palpation (GI): Soft to palpation, nontender, no guarding and not rigid Skin: General skin exam: no rashes or lesions noted Neuro: General: moves all extremities Extrem: General: Yes no clubbing, cyanosis or edema Objective Data Active Medications Acetaminophen (Acetaminophen 325 Mg Tablet) 650 mg PO Q6H [facility] Last Admin: 05/26/22 03:33 Dose: 650 mg Documented By: LISA Amantadine HCl (Amantadine Hcl 100 Mg Capsule) 100 mg PO Q2D [facility] Last Admin: 05/24/22 16:36 Dose: 100 mg Documented By: DENISHA Baclofen (Baclofen 20 Mg Tablet) 20 mg PO BID PRN PRN Reason: pain (scale score 4-6) Last Admin: 05/25/22 16:48 Dose: 20 mg Documented By: DENISHA Buspirone HCl (Buspirone Hcl 10 Mg Tablet) 10 mg PO BID PRN PRN Reason: Anxiety Last Admin: 05/25/22 16:49 Dose: 10 mg Documented By: DENISHA Carbidopa/Levodopa (Carbidopa/Levodopa 25/100 Tablet) 1 tab PO QID [facility] Last Admin: 05/25/22 20:09 Dose: 1 tab Documented By: ALEC Diltiazem HCl (Diltiazem Hcl Cd 240 Mg Cap.Er.Deg) 240 mg PO DAILY [facility]; Protocol Last Admin: 05/25/22 08:44 Dose: 240 mg Documented By: DENISHA Donepezil HCl (Donepezil Hcl 10 Mg Tablet) 10 mg PO BEDTIME [facility] Last Admin: 05/25/22 20:09 Dose: 10 mg Documented By: ALEC Duloxetine HCl (Duloxetine Hcl 30 Mg Capsule.Dr) 30 mg PO DAILY [facility] Last Admin: 05/25/22 08:45 Dose: 30 mg Documented By: DENISHA Finasteride (Finasteride 5 Mg Tablet) 5 mg PO DAILY [facility] Last Admin: 05/25/22 08:44 Dose: 5 mg Documented By: DENISHA Fluticasone Propionate (Fluticasone Propionate Nasal 16 Gm [place]) 1 spray NOSTRIL-B BID [facility] Last Admin: 05/25/22 20:09 Dose: 1 spray Documented By: ALEC Heparin Sodium (Porcine) (Heparin Sodium,Porcine 5,000 Unit/Ml Vial) 5,000 unit SUBCUT Q12H [facility] Last Admin: 05/26/22 03:34 Dose: 5,000 unit Documented By: LISA Dextrose (D5w) 1,000 mls @ 80 mls/hr IVCONT .[id number] [facility] Last Admin: 05/26/22 02:25 Dose: 80 mls/hr Documented By: ALEC Levothyroxine Sodium (Levothyroxine Sodium 50 Mcg Tablet) 50 mcg PO DAILY@0600 [facility] Last Admin: 05/26/22 05:20 Dose: Not Given Documented By: LISA Non-Admin Reason: Patient Refused Lidocaine (Lidocaine 4 % Patch Adh..Patch) 1 patch TRANSDERMA DAILY [facility] Last Admin: 05/25/22 08:45 Dose: 1 patch Documented By: DENISHA Magnesium Hydroxide (Milk Of Magnesia 30 Ml Oral.Susp) 30 ml PO DAILY PRN PRN Reason: Constipation Memantine (Memantine Hcl 5 Mg Tablet) 5 mg PO BID [facility] Last Admin: 05/25/22 20:09 Dose: 5 mg Documented By: ALEC Omeprazole (Omeprazole 20 Mg Capsule.Dr) 20 mg PO DAILY@0630 [facility] Last Admin: 05/26/22 05:20 Dose: Not Given Documented By: LISA Non-Admin Reason: Patient Refused Ondansetron HCl (Ondansetron Hcl 4 Mg/2 Ml Vial) 4 mg IVPUSH Q8H PRN PRN Reason: Nausea and Vomiting Last Admin: 05/24/22 12:05 Dose: 4 mg Documented By: DENISHA Oxycodone HCl (Oxycodone Hcl Immed Release 5 Mg Tablet) 5 mg PO Q4H PRN PRN Reason: Pain, Mild (Pain Scale 1-3) Last Admin: 05/26/22 03:33 Dose: 5 mg Documented By: LISA Pharmacy Consult (Consult Rx Perform Med Rec) 1 each MISCELLANE ONCE PRN PRN Reason: Consult order Pregabalin (Pregabalin 150 Mg Capsule) 150 mg PO BID [facility] Last Admin: 05/25/22 20:09 Dose: 150 mg Documented By: ALEC Ropinirole HCl (Ropinirole Hcl 2 Mg Tablet) 6 mg PO DAILY@1200 [facility] Last Admin: 05/25/22 11:31 Dose: 6 mg Documented By: DENISHA Ropinirole HCl (Ropinirole Hcl 2 Mg Tablet) 12 mg PO BEDTIME [facility] Last Admin: 05/25/22 20:08 Dose: 12 mg Documented By: ALEC Sodium Chloride (0.9 % Sodium Chloride Flush 3 Ml Syringe) [facility] Last Admin: 05/25/22 23:35 Dose: 3 ml Documented By: ALEC Tamsulosin HCl (Tamsulosin Hcl 0.4 Mg Capsule) 0.4 mg PO BID [facility] Last Admin: 05/25/22 20:09 Dose: 0.4 mg Documented By: ALEC Tizanidine HCl (Tizanidine Hcl 4 Mg Tablet) 4 mg PO DAILY PRN PRN Reason: muscle spasticity Last Admin: 05/25/22 16:48 Dose: 4 mg Documented By: DENISHA Trazodone HCl (Trazodone Hcl 100 Mg Tablet) 300 mg PO BEDTIME PRN PRN Reason: insomnia Last Admin: 05/25/22 23:35 Dose: 300 mg Documented By: ALEC Labs 05/25/22 07:48 05/25/22 07:48 Labs: Laboratory Results - last 24 hr 05/25/22 07:48 Anion Gap 16 Estim Creat Clear Calc 106.4 Estimated GFR > 60 Random Glucose 89 Calcium 7.7 L D Procedures Date of Service Date of Service: 05/26/22 Progress Note: A&P Assessment and plan (1) Perforated diverticulum of large intestine: Status: Acute (2) Chronic pain syndrome: Status: Acute Plan 71 year old male admitted for perforated diverticulitis now POD #8 s/p nimo procedure. Patient with elevated WBC count; CT abdomen and pelvis was requested which showed no abscess but did reveal gastric dilatation. Subsequently made NPO and felt improved the following morning and started on clears. Lost IV access. Biggest complaint is neck pain and frustration from length of time it takes to get oxycodone. Tolerating clears, ostomy functioning well. F/u AXR this am. Repeat CBC was collected but no results yet. Will await AXR, labs. Continue PT, increasing ambulation in preparation for discharge. Hopefully home over the weekend if continues to do well. Time Spent With Patient Time: Total time managing care of this patient today ____ minutes. Quality Stroke Does the patient have a stroke diagnosis?: No VTE Prior VTE?: No VTE Risk Level:: Surgical - high VTE Device Contraindication: N/A - Device Ordered VTE Drug Contraindication: N/A - Med Ordered
[2022-05-26] MEDS: Finasteride 5 MG TABLET PO (09:11)
[2022-05-26] MEDS: Carbidopa/Levodopa 25/100 TABLET 1 TAB PO ×4 (09:11→22:21)
[2022-05-26] MEDS: dilTIAZem HCL CD 240 MG CAP.ER.DEG PO (09:12)
[2022-05-26] MEDS: 0.9 % Sodium Chloride Flush 3 ML SYRINGE IVFLUSH (09:12)
[2022-05-26] MEDS: DULoxetine HCl 30 MG CAPSULE.DR PO (09:12)
[2022-05-26] MEDS: Fluticasone Propionate Nasal 16 GM SPRAY 1 SPRAY NOSTRIL-B ×2 (09:13→22:22)
[2022-05-26] MEDS: Memantine HCl 5 MG TABLET PO ×2 (09:17→22:20)
[2022-05-26] MEDS: Pregabalin 150 MG CAPSULE PO ×2 (09:18→22:20)
[2022-05-26] MEDS: Tamsulosin HCL 0.4 MG CAPSULE PO ×2 (09:18→22:21)
[2022-05-26 11:22] VITALS: BP 145/87; PULSE 96; O2SAT 92
[2022-05-26] MEDS: rOPINIRole HCL 2 MG TABLET 6 MG PO (11:38)
--- NOTE | 2022-05-26 13:02 | P.PNNP_ITS ---
Subjective Subjective Date of Service: 05/27/22 Interval history: Events noted Physical Exam Vital Signs: Vital Signs: Last Vital Signs Temp 97.9 F 05/26/22 08:00 Pulse 96 05/26/22 11:22 Resp 18 05/26/22 08:00 BP 145/87 H 05/26/22 11:22 Pulse Ox 92 05/26/22 11:22 O2 Del Method 05/26/22 08:00 O2 Flow Rate 2 05/22/22 15:01 BMI result Body Mass Index 31.9 Const: General: cooperative Resp: Other: decreased respiratory effort, diminished breath sounds Cardio: Rate: regular rate Rhythm: regular rhythm Heart sounds: S1 normal heart sound present and S2 normal heart sound present GI: Other: midline abdominal incision with c/d/i dressing; softly distended, avis- incisional tenderness : Other: cason in place draining yellow urine Neuro: Other: able to move all 4 extremities; sleepy,difficult for full neuro eval, following commands, tongue midline, face symmetrical. no focal deficits apprecitated Extrem: General: Yes normal to inspection and Yes no clubbing, cyanosis or edema Psych: Appearance: grossly normal Objective Data Labs 05/25/22 07:48 05/25/22 07:48 Microbiology Microbiology Results: Microbiology 05/17/22 18:07 Blood - Venous Blood Culture - Final No growth after 5 days. 05/18/22 08:43 Abscess Intra-abdominal Gram Stain - Final 05/18/22 08:43 Abscess Intra-abdominal Routine Culture - Final 05/17/22 19:37 Blood - Venous Blood Culture - Final Coag negative Staphylococcus 05/17/22 22:50 Urine clean catch - Urine king top Urine Culture - Final No growth. Procedures Date of Service Date of Service: 05/26/22 Assessment & Plan Assessment and plan (1) LILIANA (acute kidney injury): Status: Acute (2) Perforated diverticulum of large intestine: Status: Acute Plan 71-year-old male with a history of HTN, HLD, Parkinsons, and Chronic Pain on chronic Naproxen and Opioids who presented to the emergency department with abdominal pain found to have perforated diverticulitis. He underwent exploratory laparotomy/Milla procedure secondary to perforated sigmoid diverticulitis with multiple pelvic abscesses.?Course now complicated by LILIANA, Hyperkalemia and Oliguria all refractory to resuscitation and Abx efforts. Course then complicated by hyperactive delirium complicating a safe temporary dialysis catheter placement. Patient was therefore managed medically with bicarbonate, diuretics. His Acid sois is stable and Hyperkalemia resolved. He is no longer oliguric, but GFR is poor. 1. Non-Oliguric LILIANA baseline Cr 0.6mg/dL Cr rising >5mg/dL CT imaging ruled out obstruction U/A with granular MBC sediment c/w tubular necrosis. ATN in the setting of severe sepsis, hemodynamic compromise, renal hypoperfusion, cytokine storm, decreased PO intake and ongoing BID Naproxen Glomerular pathology unlikely Obstruction ruled out Hypernatremia due to free water deficit joel since he was NPO Plan: - will continue current medical measures seeing this ATN through. - Lokelma 10g PRN K >5.0 -Keep I > O with D5W and encourage PO water intake and recheck labs tomorrow/ If Na < 145, can DC IVF IV hydration D5W at 80 cc/hr until PO intake is adequate Time Spent With Patient Time: Total time managing care of this patient today ____ minutes. Progress Note: Quality Stroke Does the patient have a stroke diagnosis?: No
--- NOTE | 2022-05-26 15:35 | MHC.CM.PN ---
per rounds pt is surgical dc plan home with hvns when dcd
[2022-05-26] MEDS: ondansetron HCL 4 MG/2 ML VIAL IVPUSH (15:39)
[2022-05-26 16:00] VITALS: BP 138/76; PULSE 92; RESP 18; TEMP 36.9; O2SAT 97
[2022-05-26] MEDS: amantadine HCL 100 MG CAPSULE PO (17:33)
[2022-05-26] MEDS: Prochlorperazine Edisylate 10 MG/2 ML VIAL 5 MG IVPUSH (21:44)
[2022-05-26] MEDS: Donepezil HCl 10 MG TABLET PO (22:20)
[2022-05-26] MEDS: rOPINIRole HCL 2 MG TABLET 12 MG PO (22:21)
[2022-05-26] MEDS: traZODone HCL 100 MG TABLET 300 MG PO (22:30)
[2022-05-26 23:25] VITALS: BP 122/65; PULSE 91; RESP 18; TEMP 36.8; O2SAT 95
[2022-05-27] MEDS: oxyCODONE HCl Immed Release 5 MG TABLET PO ×5 (03:02→21:17)
[2022-05-27] MEDS: Heparin Sodium,Porcine 5,000 UNIT/ML VIAL 5000 UNIT SUBCUT ×2 (03:02→17:06)
[2022-05-27] MEDS: Omeprazole 20 MG CAPSULE.DR PO (05:54)
[2022-05-27] MEDS: Levothyroxine Sodium 50 MCG TABLET PO (05:54)
[2022-05-27 06:35] LABS: Basophils Absolute Auto 0.1 X10*3/uL (0.0-0.2); Basophils Percent Auto 0.4 % (0-2); Eosinophils Absolute Auto 0.3 X10*3/uL (0.0-0.4); Eosinophils Percent Auto 1.2 % (0-4); Hematocrit 33.6 % (42.0-52.0); Hemoglobin 10.9 g/dl (14.0-18.0); Imm Gran Abs Auto 0.77 X10*3/uL (0.00-0.03); Imm Gran Pct Auto 3.1 % (0.0-0.4); Lymphocytes Absolute Auto 1.7 X10*3/uL (1.2-4.9); MANUAL DIFF FLAG SCAN; Mean Corpuscular HGB Conc 32.4 g/dl (31.0-36.0); Mean Corpuscular Hemoglobin 31.6 pg (27.0-33.0); Mean Corpuscular Volume 97.4 fL (80.0-98.0); Mean Platelet Volume 8.5 fL (9.4-12.4); Monocytes Absolute Auto 0.9 X10*3/uL (0.1-1.2); Monocytes Percent Auto 3.6 % (2-11); Neutrophils Absolute Auto 20.9 x10*3/uL (2.0-8.3); Neutrophils Percent Auto 84.7 % (45-73); Platelet Count 464 X10*3/uL (160-400); Red Blood Count 3.45 X10*6/uL (4.60-5.80); Red Cell Distribution Width 14.6 % (11.0-16.0); SCAN SMEAR FLAG 1; White Blood Count 24.6 X10*3/uL (4.8-10.8)
[2022-05-27 07:09] LABS: SLIDE REVIEW VERIFIED
[2022-05-27 07:12] LABS: Anion Gap 12 (12-20); Blood Urea Nitrogen 13 mg/dL (9-16); Calcium 7.4 mg/dL (8.4-10.2); Carbon Dioxide 28 mmol/L (22-29); Chloride 106 mmol/L (96-108); Creatinine Clr Calc Pharmacy 122.7; Estimated Glomerular Filt Rate > 60; Glucose Random 120 mg/dL (60-115); Potassium 3.3 mmol/L (3.3-5.1); Sodium 143 mmol/L (135-145)
[2022-05-27 07:57] VITALS: BP 134/72; PULSE 89; RESP 18; TEMP 36.9; O2SAT 93
[2022-05-27] MEDS: Carbidopa/Levodopa 25/100 TABLET 1 TAB PO ×4 (08:28→21:18)
[2022-05-27] MEDS: Acetaminophen 325 MG TABLET 650 MG PO ×3 (08:28→22:15)
[2022-05-27] MEDS: Lidocaine 4 % Patch ADH..PATCH 1 PATCH TRANSDERMA (08:28)
[2022-05-27] MEDS: Finasteride 5 MG TABLET PO (08:30)
[2022-05-27] MEDS: Memantine HCl 5 MG TABLET PO ×2 (08:30→21:17)
[2022-05-27] MEDS: dilTIAZem HCL CD 240 MG CAP.ER.DEG PO (08:31)
[2022-05-27] MEDS: 0.9 % Sodium Chloride Flush 3 ML SYRINGE IVFLUSH (08:31)
[2022-05-27] MEDS: DULoxetine HCl 30 MG CAPSULE.DR PO (08:31)
[2022-05-27] MEDS: Pregabalin 150 MG CAPSULE PO ×2 (08:31→21:17)
[2022-05-27] MEDS: Fluticasone Propionate Nasal 16 GM SPRAY 1 SPRAY NOSTRIL-B ×2 (08:32→21:22)
[2022-05-27] MEDS: Tamsulosin HCL 0.4 MG CAPSULE PO ×2 (08:33→21:17)
[2022-05-27] MEDS: Baclofen 20 MG TABLET PO (08:40)
[2022-05-27] MEDS: rOPINIRole HCL 2 MG TABLET 6 MG PO (12:09)
[2022-05-27] MEDS: TiZANidine HCL 4 MG TABLET PO (12:10)
[2022-05-27] MEDS: Dextrose 5 % 1,000 ML 80 ML IVCONT (12:10)
--- NOTE | 2022-05-27 14:17 | P.PNGS_ITS ---
Subjective Subjective Date of Service: 05/27/22 Interval history: feeling well no nausea ostomy working not much pain, has been walking Physical Exam Vital Signs: Vital Signs: Last Vital Signs Temp 98.5 F 05/27/22 07:57 Pulse 89 05/27/22 07:57 Resp 18 05/27/22 07:57 BP 134/72 05/27/22 07:57 Pulse Ox 93 05/27/22 07:57 O2 Del Method 05/27/22 07:57 O2 Flow Rate 2 05/22/22 15:01 BMI result Body Mass Index 31.9 Const: General: cooperative, healthy appearing, comfortable and no acute di stress Resp: Effort & Inspection: normal respiratory effort Auscultation: clear to auscultation bilaterally Cardio: Rate: regular rate Rhythm: regular rhythm GI: Other: abdo soft nontender adn ostomy working with gas and stool in bag midline incsion with small area at inferior base open but not much drainaige. Inspection: Yes normal to inspection Objective Data Active Medications Acetaminophen (Acetaminophen 325 Mg Tablet) 650 mg PO Q6H [facility] Last Admin: 05/27/22 08:28 Dose: 650 mg Documented By: DENISHA Amantadine HCl (Amantadine Hcl 100 Mg Capsule) 100 mg PO Q2D [facility] Last Admin: 05/26/22 17:33 Dose: 100 mg Documented By: LUIS F Baclofen (Baclofen 20 Mg Tablet) 20 mg PO BID PRN PRN Reason: pain (scale score 4-6) Last Admin: 05/27/22 08:40 Dose: 20 mg Documented By: DENISHA Buspirone HCl (Buspirone Hcl 10 Mg Tablet) 10 mg PO BID PRN PRN Reason: Anxiety Last Admin: 05/25/22 16:49 Dose: 10 mg Documented By: DENISHA Carbidopa/Levodopa (Carbidopa/Levodopa 25/100 Tablet) 1 tab PO QID [facility] Last Admin: 05/27/22 12:09 Dose: 1 tab Documented By: DENISHA Diltiazem HCl (Diltiazem Hcl Cd 240 Mg Cap.Er.Deg) 240 mg PO DAILY [facility]; Protocol Last Admin: 05/27/22 08:31 Dose: 240 mg Documented By: DENISHA Donepezil HCl (Donepezil Hcl 10 Mg Tablet) 10 mg PO BEDTIME [facility] Last Admin: 05/26/22 22:20 Dose: 10 mg Documented By: NIKHIL Duloxetine HCl (Duloxetine Hcl 30 Mg Capsule.) 30 mg PO DAILY [facility] Last Admin: 05/27/22 08:31 Dose: 30 mg Documented By: DENISHA Finasteride (Finasteride 5 Mg Tablet) 5 mg PO DAILY [facility] Last Admin: 05/27/22 08:30 Dose: 5 mg Documented By: DENISHA Fluticasone Propionate (Fluticasone Propionate Nasal 16 Gm [place]) 1 spray NOSTRIL-B BID [facility] Last Admin: 05/27/22 08:32 Dose: 1 spray Documented By: DENISHA Heparin Sodium (Porcine) (Heparin Sodium,Porcine 5,000 Unit/Ml Vial) 5,000 unit SUBCUT Q12H [facility] Last Admin: 05/27/22 03:02 Dose: 5,000 unit Documented By: KRISTA Dextrose (D5w) 1,000 mls @ 80 mls/hr IVCONT .[id number] [facility] Last Admin: 05/27/22 12:10 Dose: 80 mls/hr Documented By: DENISHA Levothyroxine Sodium (Levothyroxine Sodium 50 Mcg Tablet) 50 mcg PO DAILY@0600 [facility] Last Admin: 05/27/22 05:54 Dose: 50 mcg Documented By: KRISTA Lidocaine (Lidocaine 4 % Patch Adh..Patch) 1 patch TRANSDERMA DAILY [facility] Last Admin: 05/27/22 08:28 Dose: 1 patch Documented By: DENISHA Magnesium Hydroxide (Milk Of Magnesia 30 Ml Oral.Susp) 30 ml PO DAILY PRN PRN Reason: Constipation Memantine (Memantine Hcl 5 Mg Tablet) 5 mg PO BID [facility] Last Admin: 05/27/22 08:30 Dose: 5 mg Documented By: DENISHA Omeprazole (Omeprazole 20 Mg Capsule.) 20 mg PO DAILY@0630 [facility] Last Admin: 05/27/22 05:54 Dose: 20 mg Documented By: KRISTA Oxycodone HCl (Oxycodone Hcl Immed Release 5 Mg Tablet) 5 mg PO Q4H PRN PRN Reason: Pain, Mild (Pain Scale 1-3) Last Admin: 05/27/22 13:13 Dose: 5 mg Documented By: DENISHA Pharmacy Consult (Consult Rx Perform Med Rec) 1 each MISCELLANE ONCE PRN PRN Reason: Consult order Pregabalin (Pregabalin 150 Mg Capsule) 150 mg PO BID [facility] Last Admin: 05/27/22 08:31 Dose: 150 mg Documented By: DENISHA Prochlorperazine Edisylate (Prochlorperazine Edisylate 10 Mg/2 Ml Vial) 5 mg IVPUSH Q6H PRN PRN Reason: Nausea and Vomiting Last Admin: 05/26/22 21:44 Dose: 5 mg Documented By: NIKHIL Ropinirole HCl (Ropinirole Hcl 2 Mg Tablet) 6 mg PO DAILY@1200 [facility] Last Admin: 05/27/22 12:09 Dose: 6 mg Documented By: DENISHA Ropinirole HCl (Ropinirole Hcl 2 Mg Tablet) 12 mg PO BEDTIME [facility] Last Admin: 05/26/22 22:21 Dose: 12 mg Documented By: NIKHIL Sodium Chloride (0.9 % Sodium Chloride Flush 3 Ml Syringe) 3 ml IVFLUSH QSHIFT [facility] Last Admin: 05/27/22 08:31 Dose: 3 ml Documented By: DENISHA Tamsulosin HCl (Tamsulosin Hcl 0.4 Mg Capsule) 0.4 mg PO BID [facility] Last Admin: 05/27/22 08:33 Dose: 0.4 mg Documented By: DENISHA Tizanidine HCl (Tizanidine Hcl 4 Mg Tablet) 4 mg PO DAILY PRN PRN Reason: muscle spasticity Last Admin: 05/27/22 12:10 Dose: 4 mg Documented By: DENISHA Trazodone HCl (Trazodone Hcl 100 Mg Tablet) 300 mg PO BEDTIME PRN PRN Reason: insomnia Last Admin: 05/26/22 22:30 Dose: 300 mg Documented By: NIKHIL Labs 05/27/22 06:15 05/27/22 06:15 Labs: Laboratory Results - last 24 hr 05/27/22 05/27/22 06:15 06:15 MCV 97.4 MCH 31.6 MCHC 32.4 RDW 14.6 Plt Count 464 H MPV 8.5 L Immature Gran % (Auto) 3.1 H Neut % (Auto) 84.7 H Lymph % (Auto) 7.0 L [place] % (Auto) 3.6 Eos % (Auto) 1.2 Baso % (Auto) 0.4 Lymph # (Auto) 1.7 [place] # (Auto) 0.9 Eos # (Auto) 0.3 Baso # (Auto) 0.1 Abs Immat Gran (auto) 0.77 H Absolute Neuts (auto) 20.9 H Absolute Nucleated RBC 0.000 Nucleated RBC % (auto) 0.0 Smear Tech's Comments VERIFIED Anion Gap 12 Estim Creat Clear Calc 122.7 Estimated GFR > 60 Random Glucose 120 H Calcium 7.4 L Procedures Date of Service Date of Service: 05/27/22 Progress Note: A&P Assessment and plan (1) Perforated diverticulum of large intestine: Status: Acute Assessment and Plan: pod#7 sp sig colectomy for perf tics - doing very well, ostomy working abdo benign and he looks great. wbc elevate -? etiology of that. pt has been known to have some elvated wbc and bandemia in the past - ? cause will cont with planned antibx coverage, and advance diet appreciate med team following Time Spent With Patient Time: Total time managing care of this patient today ____ minutes. Quality Stroke Does the patient have a stroke diagnosis?: No VTE Prior VTE?: No VTE Risk Level:: Surgical - high VTE Device Contraindication: N/A - Device Ordered VTE Drug Contraindication: N/A - Med Ordered
[2022-05-27 16:00] VITALS: BP 127/66; PULSE 82; RESP 18; TEMP 36.8; O2SAT 92
[2022-05-27] MEDS: Prochlorperazine Edisylate 10 MG/2 ML VIAL 5 MG IVPUSH (19:15)
[2022-05-27] MEDS: rOPINIRole HCL 2 MG TABLET 12 MG PO (21:17)
[2022-05-27] MEDS: Donepezil HCl 10 MG TABLET PO (21:17)
[2022-05-27] MEDS: traZODone HCL 100 MG TABLET 300 MG PO (22:16)
[2022-05-28] VITALS: BP 128/62; PULSE 83; RESP 18; TEMP 37.1; O2SAT 94
[2022-05-28] MEDS: oxyCODONE HCl Immed Release 5 MG TABLET PO ×6 (00:58→23:45)
[2022-05-28] MEDS: Dextrose 5 % 1,000 ML 80 ML IVCONT ×2 (00:59→14:26)
[2022-05-28] MEDS: Heparin Sodium,Porcine 5,000 UNIT/ML VIAL 5000 UNIT SUBCUT ×2 (05:10→16:35)
[2022-05-28] MEDS: Levothyroxine Sodium 50 MCG TABLET PO (05:11)
[2022-05-28] MEDS: Acetaminophen 325 MG TABLET 650 MG PO ×3 (05:11→16:35)
[2022-05-28] MEDS: Omeprazole 20 MG CAPSULE.DR PO (05:11)
[2022-05-28 06:23] LABS: Baso%MD 0.4 %; Eos%MD 1.5 %; Hematocrit 31.8 % (42.0-52.0); Hemoglobin 10.3 g/dl (14.0-18.0); IG%MD 2.7 %; Lymph%MD 7.1 %; Mean Corpuscular HGB Conc 32.4 g/dl (31.0-36.0); Mean Corpuscular Hemoglobin 31.6 pg (27.0-33.0); Mean Corpuscular Volume 97.5 fL (80.0-98.0); Mean Platelet Volume 8.5 fL (9.4-12.4); Mono%MD 5.5 %; Neut%MD 82.8 %; Platelet Count 469 X10*3/uL (160-400); Red Blood Count 3.26 X10*6/uL (4.60-5.80); Red Cell Distribution Width 14.6 % (11.0-16.0); White Blood Count 20.7 X10*3/uL (4.8-10.8)
[2022-05-28 07:24] LABS: Band Neutrophils Percent 2 % (3-5); Basophils Abs Manual 0.6 X10*3/uL (0.0-0.2); Basophils Percent Manual 3 % (0-2); Eosinophils Absolute Manual 0.4 X10*3/uL (0.0-0.4); Eosinophils Percent Manual 2 % (0-4); Lymphocytes Percent Manual 5 % (20-40); Monocytes Absolute Manual 0.4 X10*3/uL (0.1-1.2); Monocytes Percent Manual 2 % (2-11); Neutrophils Absolute Manual 18.2 X10*3/uL (2.0-8.3); Neutrophils Percent Manual 86 % (45-73)
[2022-05-28 07:26] LABS: Large Platelet PRESENT; Macrocytosis 1+ (5-14) /OIF; Platelet Estimate INCREASED (NORMAL); Platelet Morphology Comment NOTED; RBC Morphology NOTED
[2022-05-28 07:28] LABS: Hypochromasia 1+ (5-14) /OIF; Polychromasia 1+ (0-2) /OIF
[2022-05-28 07:35] VITALS: BP 134/64; PULSE 82; RESP 20; TEMP 36.9; O2SAT 94
[2022-05-28] MEDS: Lidocaine 4 % Patch ADH..PATCH 1 PATCH TRANSDERMA (09:31)
[2022-05-28] MEDS: Carbidopa/Levodopa 25/100 TABLET 1 TAB PO ×4 (09:32→19:45)
[2022-05-28] MEDS: Finasteride 5 MG TABLET PO (09:32)
[2022-05-28] MEDS: Baclofen 20 MG TABLET PO (09:32)
[2022-05-28] MEDS: dilTIAZem HCL CD 240 MG CAP.ER.DEG PO (09:32)
[2022-05-28] MEDS: DULoxetine HCl 30 MG CAPSULE.DR PO (09:32)
[2022-05-28] MEDS: Memantine HCl 5 MG TABLET PO ×2 (09:32→19:44)
[2022-05-28] MEDS: Pregabalin 150 MG CAPSULE PO ×2 (09:32→19:44)
[2022-05-28] MEDS: busPIRone HCl 10 MG TABLET PO (09:32)
[2022-05-28] MEDS: Tamsulosin HCL 0.4 MG CAPSULE PO ×2 (09:32→19:45)
[2022-05-28] MEDS: Fluticasone Propionate Nasal 16 GM SPRAY 1 SPRAY NOSTRIL-B (09:33)
--- NOTE | 2022-05-28 11:35 | P.PNGS_ITS ---
Subjective Subjective Date of Service: 05/28/22 Interval history: pt says doesnt feel as well today - feels lousy - wbc a little better, not nauseated and tolerated po diet well yesterday no fevers or chills Physical Exam Vital Signs: Vital Signs: Last Vital Signs Temp 98.5 F 05/28/22 07:35 Pulse 82 05/28/22 07:35 Resp 20 05/28/22 07:35 BP 134/64 05/28/22 07:35 Pulse Ox 94 05/28/22 07:35 O2 Del Method 05/28/22 07:35 O2 Flow Rate 2 05/22/22 15:01 BMI result Body Mass Index 31.9 Const: General: cooperative, healthy appearing, no acute distress and tired appearing Resp: Effort & Inspection: normal respiratory effort Auscultation: clear to auscultation bilaterally and diminished lung sounds (bases) Cardio: Rate: regular rate Rhythm: regular rhythm Psych: Appearance: grossly normal Objective Data Active Medications Acetaminophen (Acetaminophen 325 Mg Tablet) 650 mg PO Q6H [facility] Last Admin: 05/28/22 09:32 Dose: 650 mg Documented By: DENISHA Amantadine HCl (Amantadine Hcl 100 Mg Capsule) 100 mg PO Q2D [facility] Last Admin: 05/26/22 17:33 Dose: 100 mg Documented By: LUIS F Baclofen (Baclofen 20 Mg Tablet) 20 mg PO BID PRN PRN Reason: pain (scale score 4-6) Last Admin: 05/28/22 09:32 Dose: 20 mg Documented By: DENISHA Buspirone HCl (Buspirone Hcl 10 Mg Tablet) 10 mg PO BID PRN PRN Reason: Anxiety Last Admin: 05/28/22 09:32 Dose: 10 mg Documented By: DENISHA Carbidopa/Levodopa (Carbidopa/Levodopa 25/100 Tablet) 1 tab PO QID [facility] Last Admin: 05/28/22 09:32 Dose: 1 tab Documented By: DENISHA Diltiazem HCl (Diltiazem Hcl Cd 240 Mg Cap.Er.Deg) 240 mg PO DAILY [facility]; Protocol Last Admin: 05/28/22 09:32 Dose: 240 mg Documented By: DENISHA Donepezil HCl (Donepezil Hcl 10 Mg Tablet) 10 mg PO BEDTIME [facility] Last Admin: 05/27/22 21:17 Dose: 10 mg Documented By: JUN Duloxetine HCl (Duloxetine Hcl 30 Mg Capsule.) 30 mg PO DAILY [facility] Last Admin: 05/28/22 09:32 Dose: 30 mg Documented By: DENISHA Finasteride (Finasteride 5 Mg Tablet) 5 mg PO DAILY [facility] Last Admin: 05/28/22 09:32 Dose: 5 mg Documented By: DENISHA Fluticasone Propionate (Fluticasone Propionate Nasal 16 Gm [place]) 1 spray NOSTRIL-B BID [facility] Last Admin: 05/28/22 09:33 Dose: 1 spray Documented By: DENISHA Heparin Sodium (Porcine) (Heparin Sodium,Porcine 5,000 Unit/Ml Vial) 5,000 unit SUBCUT Q12H [facility] Last Admin: 05/28/22 05:10 Dose: 5,000 unit Documented By: JUN Dextrose (D5w) 1,000 mls @ 80 mls/hr IVCONT .[id number] [facility] Last Admin: 05/28/22 00:59 Dose: 80 mls/hr Documented By: JUN Levothyroxine Sodium (Levothyroxine Sodium 50 Mcg Tablet) 50 mcg PO DAILY@0600 [facility] Last Admin: 05/28/22 05:11 Dose: 50 mcg Documented By: JUN Lidocaine (Lidocaine 4 % Patch Adh..Patch) 1 patch TRANSDERMA DAILY [facility] Last Admin: 05/28/22 09:31 Dose: 1 patch Documented By: DENISHA Magnesium Hydroxide (Milk Of Magnesia 30 Ml Oral.Susp) 30 ml PO DAILY PRN PRN Reason: Constipation Memantine (Memantine Hcl 5 Mg Tablet) 5 mg PO BID [facility] Last Admin: 05/28/22 09:32 Dose: 5 mg Documented By: DENISHA Omeprazole (Omeprazole 20 Mg Capsule.) 20 mg PO DAILY@0630 [facility] Last Admin: 05/28/22 05:11 Dose: 20 mg Documented By: JUN Oxycodone HCl (Oxycodone Hcl Immed Release 5 Mg Tablet) 5 mg PO Q4H PRN PRN Reason: Pain, Mild (Pain Scale 1-3) Last Admin: 05/28/22 09:32 Dose: 5 mg Documented By: DENISHA Pharmacy Consult (Consult Rx Perform Med Rec) 1 each MISCELLANE ONCE PRN PRN Reason: Consult order Pregabalin (Pregabalin 150 Mg Capsule) 150 mg PO BID [facility] Last Admin: 05/28/22 09:32 Dose: 150 mg Documented By: DENISHA Prochlorperazine Edisylate (Prochlorperazine Edisylate 10 Mg/2 Ml Vial) 5 mg IVPUSH Q6H PRN PRN Reason: Nausea and Vomiting Last Admin: 05/27/22 19:15 Dose: 5 mg Documented By: KRISTA Ropinirole HCl (Ropinirole Hcl 2 Mg Tablet) 6 mg PO DAILY@1200 [facility] Last Admin: 05/27/22 12:09 Dose: 6 mg Documented By: DENISHA Ropinirole HCl (Ropinirole Hcl 2 Mg Tablet) 12 mg PO BEDTIME [facility] Last Admin: 05/27/22 21:17 Dose: 12 mg Documented By: JUN Sodium Chloride (0.9 % Sodium Chloride Flush 3 Ml Syringe) 3 ml IVFLUSH QSHIFT [facility] Last Admin: 05/28/22 07:58 Dose: Not Given Documented By: JAMAR Non-Admin Reason: IV Running Tamsulosin HCl (Tamsulosin Hcl 0.4 Mg Capsule) 0.4 mg PO BID [facility] Last Admin: 05/28/22 09:32 Dose: 0.4 mg Documented By: DENISHA Tizanidine HCl (Tizanidine Hcl 4 Mg Tablet) 4 mg PO DAILY PRN PRN Reason: muscle spasticity Last Admin: 05/27/22 12:10 Dose: 4 mg Documented By: DENISHA Trazodone HCl (Trazodone Hcl 100 Mg Tablet) 300 mg PO BEDTIME PRN PRN Reason: insomnia Last Admin: 05/27/22 22:16 Dose: 300 mg Documented By: JUN Labs 05/28/22 06:12 05/27/22 06:15 Labs: Laboratory Results - last 24 hr 05/28/22 06:12 MCV 97.5 MCH 31.6 MCHC 32.4 RDW 14.6 Plt Count 469 H MPV 8.5 L Absolute Nucleated RBC 0.000 Nucleated RBC % (auto) 0.0 Neutrophils % (Manual) 86 H Band Neutrophils % 2 L Lymphocytes % (Manual) 5 L Monocytes % (Manual) 2 Eosinophils % (Manual) 2 Basophils % (Manual) 3 H Abs Neuts (Manual) 18.2 H Lymphocytes # (Manual) 1.0 L Monocytes # (Manual) 0.4 Eosinophils # (Manual) 0.4 Basophils # (Manual) 0.6 H Platelet Estimate INCREASED Large Platelets PRESENT Plt Morphology Comment NOTED RBC Morphology NOTED Polychromasia 1+ (0-2) Hypochromasia 1+ (5-14) Macrocytosis 1+ (5-14) Procedures Date of Service Date of Service: 05/28/22 Progress Note: A&P Assessment and plan (1) Perforated diverticulum of large intestine: Status: Acute Assessment and Plan: 71 yo male 10 days s/p Milla procedure for perf diverticulitis and was doing very well yesterday not as great today. wbc improving - not on antibx anymore - the wound started draining last night as per nurse and pic of dressing looked like maybe some greenish material on gauze. on exam it looks like sero sang flui d not purulent not enteral. due to pt not feeling as well, drainage and elevated wbc will repeat ct scan with po contrast. pt and understand and agree with the above plan will also reconsult hospitalist to help with his care and issues. Time Spent With Patient Time: Total time managing care of this patient today ____ minutes. Quality Stroke Does the patient have a stroke diagnosis?: No VTE Prior VTE?: No VTE Risk Level:: Surgical - high VTE Device Contraindication: N/A - Device Ordered VTE Drug Contraindication: N/A - Med Ordered
--- NOTE | 2022-05-28 12:31 | P.PNIM_ITS ---
Subjective Subjective Date of Service: 05/28/22 Interval History: seen and examined this morning follow up for medical consultation for increasing leukocytosis patient is awake and alert, reports that he doesn't feel well today, no specific complaints but generally feels a little yucky no significant abdominal pain. denies fever, reports feeling a little cold this morning. no cough, sob, dysuria Review of Systems Review of Systems: Yes all other systems are reviewed and are negative Constitutional Constitutional: Denies chills and Denies fever(s) Cardiovascular Cardiovascular: Denies chest pain, Denies palpitations and Denies dyspnea Respiratory Respiratory: Denies cough and Denies dyspnea Gastrointestinal Gastrointestinal: Denies abdominal pain, Denies nausea and Denies vomiting Genitourinary Genitourinary: Denies dysuria Endocrine Endocrine: Denies palpitations Physical Exam Vital Signs: Vital Signs: Last Vital Signs Temp 98.5 F 05/28/22 07:35 Pulse 82 05/28/22 07:35 Resp 20 05/28/22 07:35 BP 134/64 05/28/22 07:35 Pulse Ox 94 05/28/22 07:35 O2 Del Method 05/28/22 07:35 O2 Flow Rate 2 05/22/22 15:01 BMI result Body Mass Index 31.9 Const: General: cooperative, comfortable, alert and awake Nutritional Appearance: overweight Resp: Effort & Inspection: normal respiratory effort and able to speak in complete sentences Auscultation: clear to auscultation bilaterally Cardio: Rate: regular rate Heart sounds: S1 normal heart sound present and S2 normal heart sound present GI: Other: colostomy appliance in place; midline abdominal incision open at bottom, no drainage Palpation (GI): Soft to palpation and nontender Neuro: General: CN's II-XI intact bilaterally Extrem: General: Yes no pedal edema Objective Data Active Medications Acetaminophen (Acetaminophen 325 Mg Tablet) 650 mg PO Q6H [facility] Last Admin: 05/28/22 09:32 Dose: 650 mg Documented By: DENISHA Amantadine HCl (Amantadine Hcl 100 Mg Capsule) 100 mg PO Q2D [facility] Last Admin: 05/26/22 17:33 Dose: 100 mg Documented By: LUIS F Baclofen (Baclofen 20 Mg Tablet) 20 mg PO BID PRN PRN Reason: pain (scale score 4-6) Last Admin: 05/28/22 09:32 Dose: 20 mg Documented By: DENISHA Buspirone HCl (Buspirone Hcl 10 Mg Tablet) 10 mg PO BID PRN PRN Reason: Anxiety Last Admin: 05/28/22 09:32 Dose: 10 mg Documented By: DENISHA Carbidopa/Levodopa (Carbidopa/Levodopa 25/100 Tablet) 1 tab PO QID [facility] Last Admin: 05/28/22 09:32 Dose: 1 tab Documented By: DENISHA Diltiazem HCl (Diltiazem Hcl Cd 240 Mg Cap.Er.Deg) 240 mg PO DAILY [facility]; Protocol Last Admin: 05/28/22 09:32 Dose: 240 mg Documented By: DENISHA Donepezil HCl (Donepezil Hcl 10 Mg Tablet) 10 mg PO BEDTIME [facility] Last Admin: 05/27/22 21:17 Dose: 10 mg Documented By: JUN Duloxetine HCl (Duloxetine Hcl 30 Mg Capsule.Dr) 30 mg PO DAILY [facility] Last Admin: 05/28/22 09:32 Dose: 30 mg Documented By: DENISHA Finasteride (Finasteride 5 Mg Tablet) 5 mg PO DAILY [facility] Last Admin: 05/28/22 09:32 Dose: 5 mg Documented By: DENISHA Fluticasone Propionate (Fluticasone Propionate Nasal 16 Gm [place]) 1 spray NOSTRIL-B BID [facility] Last Admin: 05/28/22 09:33 Dose: 1 spray Documented By: DENISHA Heparin Sodium (Porcine) (Heparin Sodium,Porcine 5,000 Unit/Ml Vial) 5,000 unit SUBCUT Q12H [facility] Last Admin: 05/28/22 05:10 Dose: 5,000 unit Documented By: JUN Dextrose (D5w) 1,000 mls @ 80 mls/hr IVCONT .[id number] [facility] Last Admin: 05/28/22 00:59 Dose: 80 mls/hr Documented By: JUN Levothyroxine Sodium (Levothyroxine Sodium 50 Mcg Tablet) 50 mcg PO DAILY@0600 [facility] Last Admin: 05/28/22 05:11 Dose: 50 mcg Documented By: JUN Lidocaine (Lidocaine 4 % Patch Adh..Patch) 1 patch TRANSDERMA DAILY [facility] Last Admin: 05/28/22 09:31 Dose: 1 patch Documented By: DENISHA Magnesium Hydroxide (Milk Of Magnesia 30 Ml Oral.Susp) 30 ml PO DAILY PRN PRN Reason: Constipation Memantine (Memantine Hcl 5 Mg Tablet) 5 mg PO BID [facility] Last Admin: 05/28/22 09:32 Dose: 5 mg Documented By: DENISHA Omeprazole (Omeprazole 20 Mg Capsule.Dr) 20 mg PO DAILY@0630 [facility] Last Admin: 05/28/22 05:11 Dose: 20 mg Documented By: JUN Oxycodone HCl (Oxycodone Hcl Immed Release 5 Mg Tablet) 5 mg PO Q4H PRN PRN Reason: Pain, Mild (Pain Scale 1-3) Last Admin: 05/28/22 09:32 Dose: 5 mg Documented By: DENISHA Pharmacy Consult (Consult Rx Perform Med Rec) 1 each MISCELLANE ONCE PRN PRN Reason: Consult order Pregabalin (Pregabalin 150 Mg Capsule) 150 mg PO BID [facility] Last Admin: 05/28/22 09:32 Dose: 150 mg Documented By: DENISHA Prochlorperazine Edisylate (Prochlorperazine Edisylate 10 Mg/2 Ml Vial) 5 mg IVPUSH Q6H PRN PRN Reason: Nausea and Vomiting Last Admin: 05/27/22 19:15 Dose: 5 mg Documented By: KRISTA Ropinirole HCl (Ropinirole Hcl 2 Mg Tablet) 6 mg PO DAILY@1200 [facility] Last Admin: 05/27/22 12:09 Dose: 6 mg Documented By: DENISHA Ropinirole HCl (Ropinirole Hcl 2 Mg Tablet) 12 mg PO BEDTIME [facility] Last Admin: 05/27/22 21:17 Dose: 12 mg Documented By: JUN Sodium Chloride (0.9 % Sodium Chloride Flush 3 Ml Syringe) 3 ml IVFLUSH QSHIFT [facility] Last Admin: 05/28/22 07:58 Dose: Not Given Documented By: JAMAR Non-Admin Reason: IV Running Tamsulosin HCl (Tamsulosin Hcl 0.4 Mg Capsule) 0.4 mg PO BID [facility] Last Admin: 05/28/22 09:32 Dose: 0.4 mg Documented By: HO.RIOSCEL Tizanidine HCl (Tizanidine Hcl 4 Mg Tablet) 4 mg PO DAILY PRN PRN Reason: muscle spasticity Last Admin: 05/27/22 12:10 Dose: 4 mg Documented By: RIOSCJANA Trazodone HCl (Trazodone Hcl 100 Mg Tablet) 300 mg PO BEDTIME PRN PRN Reason: insomnia Last Admin: 05/27/22 22:16 Dose: 300 mg Documented By: JUN Labs 05/28/22 06:12 05/27/22 06:15 Labs: Laboratory Results - last 24 hr 05/28/22 06:12 MCV 97.5 MCH 31.6 MCHC 32.4 RDW 14.6 Plt Count 469 H MPV 8.5 L Absolute Nucleated RBC 0.000 Nucleated RBC % (auto) 0.0 Neutrophils % (Manual) 86 H Band Neutrophils % 2 L Lymphocytes % (Manual) 5 L Monocytes % (Manual) 2 Eosinophils % (Manual) 2 Basophils % (Manual) 3 H Abs Neuts (Manual) 18.2 H Lymphocytes # (Manual) 1.0 L Monocytes # (Manual) 0.4 Eosinophils # (Manual) 0.4 Basophils # (Manual) 0.6 H Platelet Estimate INCREASED Large Platelets PRESENT Plt Morphology Comment NOTED RBC Morphology NOTED Polychromasia 1+ (0-2) Hypochromasia 1+ (5-14) Macrocytosis 1+ (5-14) Assessment and Plan (1) Perforated diverticulum of large intestine: Status: Acute (2) Leukocytosis: Status: Acute Plan This is a 71 year old male with history of Parkinson's disease, chronic back pain, HTN, BPH, hypothyroidism, recent admission for PNA and fusobacterium bacteremia admitted 05/17 with abdominal pain found to have perforated diverticulitis with intraabdominal abscess s/p Milla procedure course co mplicated by LILIANA, hyperactive delirium which have since resolved now with increasing leukocytosis. Leukocytosis wbc trending up to 24.6 yesterday, today has decreased to 20.7 does not feel well today, but has no specific symptoms, remains afebrile repeat abdominal CT planned by surgery would not pursue any other infectious workup at this time given pt is 10 days s/p Milla procedure for perf diverticulitis, abdomen most likely source of leukocytosis follow CBC can consider further infectious work up if abdominal CT is negative or patient develops fever hypernatremia resolved LILIANA resolved toxic metabolic encephalopathy resolved anemia chronic, H/H at baseline dvt ppx - heparin attending - dr. ponce Thank you for allowing us to participate in the care of this patient. We will follow along with you. Time Spent With Patient Time: Total time managing care of this patient today ____ minutes. Quality Stroke Does the patient have a stroke diagnosis?: No VTE Prior VTE?: No VTE Risk Level:: Surgical - high VTE Device Contraindication: N/A - Device Ordered VTE Drug Contraindication: N/A - Med Ordered
[2022-05-28] MEDS: rOPINIRole HCL 2 MG TABLET 6 MG PO (13:23)
[2022-05-28] MEDS: 0.9 % Sodium Chloride Flush 3 ML SYRINGE IVFLUSH (14:28)
[2022-05-28 16:00] VITALS: BP 145/69; PULSE 82; RESP 19; TEMP 36.9; O2SAT 95
[2022-05-28] MEDS: TiZANidine HCL 4 MG TABLET PO (16:35)
[2022-05-28] MEDS: amantadine HCL 100 MG CAPSULE PO (16:40)
[2022-05-28] MEDS: rOPINIRole HCL 2 MG TABLET 12 MG PO (19:44)
[2022-05-28] MEDS: Donepezil HCl 10 MG TABLET PO (19:45)
[2022-05-28 23:45] VITALS: BP 138/75; PULSE 85; RESP 18; TEMP 36.7; O2SAT 94
[2022-05-28] MEDS: traZODone HCL 100 MG TABLET 300 MG PO (23:45)
[2022-05-28] MEDS: 0.9 % Sodium Chloride 1,000 ML 100 ML IVCONT (23:46)
[2022-05-29] VITALS (15 sets, daily range): BP systolic 109–149; BP diastolic 62–76; PULSE 66–98; RESP 14–19; TEMP 36.4–36.8; O2SAT 95–98
[2022-05-29] MEDS: Acetaminophen 325 MG TABLET 650 MG PO (04:31)
[2022-05-29] MEDS: Omeprazole 20 MG CAPSULE.DR PO (04:31)
[2022-05-29] MEDS: Levothyroxine Sodium 50 MCG TABLET PO (04:32)
[2022-05-29] MEDS: oxyCODONE HCl Immed Release 5 MG TABLET PO ×4 (04:32→23:44)
[2022-05-29] MEDS: Heparin Sodium,Porcine 5,000 UNIT/ML VIAL 5000 UNIT SUBCUT ×2 (04:35→17:34)
--- NOTE | 2022-05-29 06:59 | P.PNGS_ITS ---
Subjective Subjective Date of Service: 05/29/22 Interval history: Patient developed a fascial dehiscence over the weekend with increased drainage from the incision, identified by CT abdomen/pelvis yesterday. Patient mainly complains of neck pain. Physical Exam Vital Signs: Vital Signs: Last Vital Signs Temp 98.1 F 05/28/22 23:45 Pulse 85 05/28/22 23:45 Resp 18 05/28/22 23:45 BP 138/75 05/28/22 23:45 Pulse Ox 94 05/28/22 23:45 O2 Del Method 05/28/22 23:45 O2 Flow Rate 2 05/22/22 15:01 BMI result Body Mass Index 31.9 Const: General: comfortable and no acute distress Nutritional Appearance: well nourished Orientation/consciousness: patient oriented x3 HEENT: Head: Yes normocephalic and Yes atraumatic Resp: Effort & Inspection: normal respiratory effort GI: Other: incision with dicharge from the lower incision, palpable hernia at upper pole, increased with gentle valsalva. Ostomy patent and functioning. Palpation (GI ): Soft to palpation, nontender, no guarding and not rigid Skin: General skin exam: no rashes or lesions noted Neuro: General: patient oriented x3 Extrem: General: Yes normal to inspection Objective Data Active Medications Acetaminophen (Acetaminophen 325 Mg Tablet) 650 mg PO Q6H [facility] Last Admin: 05/29/22 04:31 Dose: 650 mg Documented By: J LUIS Amantadine HCl (Amantadine Hcl 100 Mg Capsule) 100 mg PO Q2D [facility] Last Admin: 05/28/22 16:40 Dose: 100 mg Documented By: DENISHA Baclofen (Baclofen 20 Mg Tablet) 20 mg PO BID PRN PRN Reason: pain (scale score 4-6) Last Admin: 05/28/22 09:32 Dose: 20 mg Documented By: DENISHA Buspirone HCl (Buspirone Hcl 10 Mg Tablet) 10 mg PO BID PRN PRN Reason: Anxiety Last Admin: 05/28/22 09:32 Dose: 10 mg Documented By: DENISHA Carbidopa/Levodopa (Carbidopa/Levodopa 25/100 Tablet) 1 tab PO QID [facility] Last Admin: 05/28/22 19:45 Dose: 1 tab Documented By: J LUIS Diltiazem HCl (Diltiazem Hcl Cd 240 Mg Cap.Er.Deg) 240 mg PO DAILY [facility]; Protocol Last Admin: 05/28/22 09:32 Dose: 240 mg Documented By: DENISHA Donepezil HCl (Donepezil Hcl 10 Mg Tablet) 10 mg PO BEDTIME [facility] Last Admin: 05/28/22 19:45 Dose: 10 mg Documented By: J LUIS Duloxetine HCl (Duloxetine Hcl 30 Mg Capsule.Dr) 30 mg PO DAILY [facility] Last Admin: 05/28/22 09:32 Dose: 30 mg Documented By: DENISHA Finasteride (Finasteride 5 Mg Tablet) 5 mg PO DAILY [facility] Last Admin: 05/28/22 09:32 Dose: 5 mg Documented By: DENISHA Fluticasone Propionate (Fluticasone Propionate Nasal 16 Gm Rochelle) 1 spray NOSTRIL-B BID [facility] Last Admin: 05/28/22 21:16 Dose: Not Given Documented By: J LUIS Non-Admin Reason: Patient Asleep Heparin Sodium (Porcine) (Heparin Sodium,Porcine 5,000 Unit/Ml Vial) 5,000 unit SUBCUT Q12H [facility] Last Admin: 05/29/22 04:35 Dose: 5,000 unit Documented By: J LUIS Sodium Chloride (Ns) 1,000 mls @ 100 mls/hr IVCONT .Q10H [facility] Last Admin: 05/28/22 23:46 Dose: 100 mls/hr Documented By: J LUIS Levofloxacin (Levaquin) 500 mg in 100 mls @ 100 mls/hr IV PREOP ONE Stop: 05/29/22 07:55 Levothyroxine Sodium (Levothyroxine Sodium 50 Mcg Tablet) 50 mcg PO DAILY@0600 [facility] Last Admin: 05/29/22 04:32 Dose: 50 mcg Documented By: J LUIS Lidocaine (Lidocaine 4 % Patch Adh..Patch) 1 patch TRANSDERMA DAILY [facility] Last Admin: 05/28/22 09:31 Dose: 1 patch Documented By: DENISHA Magnesium Hydroxide (Milk Of Magnesia 30 Ml Oral.Susp) 30 ml PO DAILY PRN PRN Reason: Constipation Memantine (Memantine Hcl 5 Mg Tablet) 5 mg PO BID [facility] Last Admin: 05/28/22 19:44 Dose: 5 mg Documented By: J LUIS Omeprazole (Omeprazole 20 Mg Capsule.) 20 mg PO DAILY@0630 [facility] Last Admin: 05/29/22 04:31 Dose: 20 mg Documented By: J LUIS Oxycodone HCl (Oxycodone Hcl Immed Release 5 Mg Tablet) 5 mg PO Q4H PRN PRN Reason: Pain, Mild (Pain Scale 1-3) Last Admin: 05/29/22 04:32 Dose: 5 mg Documented By: J LUIS Pharmacy Consult (Consult Rx Perform Med Rec) 1 each MISCELLANE ONCE PRN PRN Reason: Consult order Pregabalin (Pregabalin 150 Mg Capsule) 150 mg PO BID [facility] Last Admin: 05/28/22 19:44 Dose: 150 mg Documented By: J LUIS Prochlorperazine Edisylate (Prochlorperazine Edisylate 10 Mg/2 Ml Vial) 5 mg IVPUSH Q6H PRN PRN Reason: Nausea and Vomiting Last Admin: 05/27/22 19:15 Dose: 5 mg Documented By: KRISTA Ropinirole HCl (Ropinirole Hcl 2 Mg Tablet) 6 mg PO DAILY@1200 [facility] Last Admin: 05/28/22 13:23 Dose: 6 mg Documented By: LISA Ropinirole HCl (Ropinirole Hcl 2 Mg Tablet) 12 mg PO BEDTIME [facility] Last Admin: 05/28/22 19:44 Dose: 12 mg Documented By: J LUIS Sodium Chloride (0.9 % Sodium Chloride Flush 3 Ml Syringe) 3 ml IVFLUSH QSHIFT [facility] Last Admin: 05/29/22 00:01 Dose: Not Given Documented By: J LUIS Non-Admin Reason: IV Running Tamsulosin HCl (Tamsulosin Hcl 0.4 Mg Capsule) 0.4 mg PO BID [facility] Last Admin: 05/28/22 19:45 Dose: 0.4 mg Documented By: J LUIS Tizanidine HCl (Tizanidine Hcl 4 Mg Tablet) 4 mg PO DAILY PRN PRN Reason: muscle spasticity Last Admin: 05/28/22 16:35 Dose: 4 mg Documented By: HO.RIOSCEL Trazodone HCl (Trazodone Hcl 100 Mg Tablet) 300 mg PO BEDTIME PRN PRN Reason: insomnia Last Admin: 05/28/22 23:45 Dose: 300 mg Documented By: J LUIS Labs 05/28/22 06:12 05/27/22 06:15 Labs: Laboratory Results - last 24 hr 05/28/22 06:12 Neutrophils % (Manual) 86 H Band Neutrophils % 2 L Lymphocytes % (Manual) 5 L Monocytes % (Manual) 2 Eosinophils % (Manual) 2 Basophils % (Manual) 3 H Abs Neuts (Manual) 18.2 H Lymphocytes # (Manual) 1.0 L Monocytes # (Manual) 0.4 Eosinophils # (Manual) 0.4 Basophils # (Manual) 0.6 H Platelet Estimate INCREASED Large Platelets PRESENT Plt Morphology Comment NOTED RBC Morphology NOTED Polychromasia 1+ (0-2) Hypochromasia 1+ (5-14) Macrocytosis 1+ (5-14) Procedures Date of Service Date of Service: 05/29/22 Progress Note: A&P Assessment and plan (1) Dehiscence of fascia: Status: Acute Plan Patient will need exploration of the incision with closure of the fascia and placement of retension sutures. I reviewed the procedure, alternatives and risks and he consents to the procedure. Time Spent With Patient Time: Total time managing care of this patient today ____ minutes. Quality Stroke Does the patient have a stroke diagnosis?: No VTE Prior VTE?: No VTE Risk Level:: Surgical - high VTE Device Contraindication: N/A - Device Ordered VTE Drug Contraindication: N/A - Med Ordered
--- NOTE | 2022-05-29 07:31 | P.CONAN_ITS ---
HPI - Anesthesia Eval Consult details Narrative: 71 M for emergent Ex lap , wound dehiscence As this is an emergent case , this case will bump the scheduled cases Patient with h/o LILIANA , now resolved , patient is hypokalemic , as the case is emergent we loly proceed to the OR and will do a i stat . PMFSH Active Problems Active Problems: All Active Problems (Updated 05/29/22 @ 07:03 by Aric Mcneill MD) Dehiscence of fascia (Acute) Leukocytosis (Acute) SIRS (systemic inflammatory response syndrome) (Acute) Perforated diverticulum of large intestine (Acute) Acute abdomen (Acute) Diverticulitis (Acute) LILIANA (acute kidney injury) (Acute) Acute UTI (Acute) Opioid contract exists (Acute) Acute respiratory failure with hypoxia (Acute) Anaerobic bacteremia (Acute) Fusobacterium infection (Acute) Bandemia (Acute) Pneumonia (Acute) Right bundle branch block (RBBB) determined by electrocardiography (Acute) Hypertensive heart disease (Acute) PAC (premature atrial contraction) (Acute) BPH (benign prostatic hyperplasia) (Acute) Hypothyroidism (Acute) Hard of hearing (Acute) GERD (gastroesophageal reflux disease) (Acute) Restless leg syndrome (Acute) Bilateral primary osteoarthritis of knee (Acute) Chronic pain syndrome (Acute) Failed back syndrome of cervical spine (Acute) Past Medical History Medical History Bilateral primary osteoarthritis of knee BPH (benign prostatic hyperplasia) Chronic pain syndrome Failed back syndrome of cervical spine GERD (gastroesophageal reflux disease) Hard of hearing HTN (hypertension) Hypertensive heart disease Hypothyroidism PAC (premature atrial contraction) Parkinsons Restless leg syndrome Family History Family history of problems with anesthesia: No Surgical History History of Problems with Anesthesia: No Social History Social History Household Members: Spouse Household Members Other:: 1 Housing: House Do you presently have visiting nurse or other home services: No Alcohol intake: current Alcohol intake frequency: holidays/special occasions only Patient Tobacco Use Status: Former Tobacco user Tobacco use type: Cigarette e-Cigarette/Vaping Use: Former Use Second Hand Smoke Exposure: No Substance Use Type: Marijuana and Prescription Drugs Advance Directives Date on File: 01/19/20 service: No Current occupational status: retired Meds Allergies Allergy/AdvReac Type Severity Reaction Status Date / Time Sulfa (Sulfonamide Allergy Severe HIVES/DIFF. Verified 05/05/22 10:02 Antibiotics) BREATHING vancomycin [VANCOMYCIN] Allergy Severe SHORTNESS Verified 05/05/22 10:02 OF BREATH cephalexin [CEPHALEXIN] Allergy Intermediate SHORTNESS Verified 05/05/22 10:02 OF BREATH [employer]ODU[employer] AdvReac Intermediate GI Uncoded 03/27/22 11:11 UPSET/DIARRHEA Active Medications: Current Medications Acetaminophen (Acetaminophen 325 Mg Tablet) 650 mg PO Q6H [facility] Last Admin: 05/29/22 04:31 Dose: 650 mg Amantadine HCl (Amantadine Hcl 100 Mg Capsule) 100 mg PO Q2D [facility] Last Admin: 05/28/22 16:40 Dose: 100 mg Baclofen (Baclofen 20 Mg Tablet) 20 mg PO BID PRN PRN Reason: pain (scale score 4-6) Last Admin: 05/28/22 09:32 Dose: 20 mg Buspirone HCl (Buspirone Hcl 10 Mg Tablet) 10 mg PO BID PRN PRN Reason: Anxiety Last Admin: 05/28/22 09:32 Dose: 10 mg Carbidopa/Levodopa (Carbidopa/Levodopa 25/100 Tablet) 1 tab PO QID [facility] Last Admin: 05/28/22 19:45 Dose: 1 tab Diltiazem HCl (Diltiazem Hcl Cd 240 Mg Cap.Er.Deg) 240 mg PO DAILY [facility]; Protocol Last Admin: 05/28/22 09:32 Dose: 240 mg Donepezil HCl (Donepezil Hcl 10 Mg Tablet) 10 mg PO BEDTIME [facility] Last Admin: 05/28/22 19:45 Dose: 10 mg Duloxetine HCl (Duloxetine Hcl 30 Mg Capsule.Dr) 30 mg PO DAILY [facility] Last Admin: 05/28/22 09:32 Dose: 30 mg Finasteride (Finasteride 5 Mg Tablet) 5 mg PO DAILY [facility] Last Admin: 05/28/22 09:32 Dose: 5 mg Fluticasone Propionate (Fluticasone Propionate Nasal 16 Gm [place]) 1 spray NOSTRIL-B BID [facility] Last Admin: 05/28/22 21:16 Dose: Not Given Heparin Sodium (Porcine) (Heparin Sodium,Porcine 5,000 Unit/Ml Vial) 5,000 unit SUBCUT Q12H [facility] Last Admin: 05/29/22 04:35 Dose: 5,000 unit Sodium Chloride (Ns) 1,000 mls @ 100 mls/hr IVCONT .Q10H [facility] Last Admin: 05/28/22 23:46 Dose: 100 mls/hr Levofloxacin (Levaquin) 500 mg in 100 mls @ 100 mls/hr IV PREOP ONE Stop: 05/29/22 07:55 Last Admin: 05/29/22 07:22 Dose: Not Given Levothyroxine Sodium (Levothyroxine Sodium 50 Mcg Tablet) 50 mcg PO DAILY@0600 [facility] Last Admin: 05/29/22 04:32 Dose: 50 mcg Lidocaine (Lidocaine 4 % Patch Adh..Patch) 1 patch TRANSDERMA DAILY [facility] Last Admin: 05/28/22 09:31 Dose: 1 patch Magnesium Hydroxide (Milk Of Magnesia 30 Ml Oral.Susp) 30 ml PO DAILY PRN PRN Reason: Constipation Memantine (Memantine Hcl 5 Mg Tablet) 5 mg PO BID [facility] Last Admin: 05/28/22 19:44 Dose: 5 mg Omeprazole (Omeprazole 20 Mg Capsule.Dr) 20 mg PO DAILY@0630 [facility] Last Admin: 05/29/22 04:31 Dose: 20 mg Oxycodone HCl (Oxycodone Hcl Immed Release 5 Mg Tablet) 5 mg PO Q4H PRN PRN Reason: Pain, Mild (Pain Scale 1-3) Last Admin: 05/29/22 04:32 Dose: 5 mg Pharmacy Consult (Consult Rx Perform Med Rec) 1 each MISCELLANE ONCE PRN PRN Reason: Consult order Pregabalin (Pregabalin 150 Mg Capsule) 150 mg PO BID [facility] Last Admin: 05/28/22 19:44 Dose: 150 mg Prochlorperazine Edisylate (Prochlorperazine Edisylate 10 Mg/2 Ml Vial) 5 mg IVPUSH Q6H PRN PRN Reason: Nausea and Vomiting Last Admin: 05/27/22 19:15 Dose: 5 mg Ropinirole HCl (Ropinirole Hcl 2 Mg Tablet) 6 mg PO DAILY@1200 [facility] Last Admin: 05/28/22 13:23 Dose: 6 mg Ropinirole HCl (Ropinirole Hcl 2 Mg Tablet) 12 mg PO BEDTIME [facility] Last Admin: 05/28/22 19:44 Dose: 12 mg Sodium Chloride (0.9 % Sodium Chloride Flush 3 Ml Syringe) 3 ml IVFLUSH QSHIFT [facility] Last Admin: 05/29/22 07:22 Dose: Not Given Tamsulosin HCl (Tamsulosin Hcl 0.4 Mg Capsule) 0.4 mg PO BID [facility] Last Admin: 05/28/22 19:45 Dose: 0.4 mg Tizanidine HCl (Tizanidine Hcl 4 Mg Tablet) 4 mg PO DAILY PRN PRN Reason: muscle spasticity Last Admin: 05/28/22 16:35 Dose: 4 mg Trazodone HCl (Trazodone Hcl 100 Mg Tablet) 300 mg PO BEDTIME PRN PRN Reason: insomnia Last Admin: 05/28/22 23:45 Dose: 300 mg Home Medications Medication Instructions Recorded Confirmed Last Taken Type carbidopa 25 mg-levodopa 100 mg 1 tab PO QID 01/21/20 05/17/22 05/17/22 History tablet diclofenac sodium 1 % topical gel 2 g topical QID PRN Inflammation 01/21/20 05/17/22 Unknown History finasteride 5 mg tablet 5 mg PO DAILY 01/21/20 05/17/22 05/17/22 History levothyroxine 50 mcg tablet 50 mcg PO DAILY@0600 01/21/20 05/17/22 05/17/22 History lidocaine 5 % topical patch 1 patch topical DAILY 01/21/20 05/17/22 05/17/22 History multivitamin (Daily Multi-Vitamin 1 tab PO DAILY 01/21/20 05/17/22 05/17/22 History tablet) tamsulosin 0.4 mg capsule 0.4 mg PO BID 01/21/20 05/17/22 05/17/22 History ondansetron HCl 4 mg tablet 4 mg PO DAILY PRN Nausea 09/15/20 05/17/22 Unknown History pantoprazole 40 mg tablet,delayed 40 mg PO DAILY@0630 09/15/20 05/17/22 05/17/22 History release ropinirole 3 mg tablet 12 mg PO BEDTIME 10/21/20 05/17/22 05/16/22 History fluticasone propionate 50 1 spray intranasal BID 10/27/20 05/17/22 05/17/22 History mcg/actuation nasal spray,suspension donepezil 10 mg tablet 10 mg PO BEDTIME 0605/17/22 05/17/22 History duloxetine 60 mg capsule,delayed 60 mg PO DAILY 10/07/21 05/17/22 05/17/22 History release memantine 10 mg tablet 10 mg PO BID 10/07/21 05/17/22 05/17/22 History pregabalin 300 mg capsule 300 mg PO BID 10/07/21 05/17/22 05/17/22 History amantadine HCl 100 mg tablet 1 tab PO TID 04/12/22 05/17/22 05/17/22 History buspirone 10 mg tablet 1 tab PO BID PRN Anxiety 04/12/22 05/17/22 05/17/22 History cholecalciferol (vitamin D3) 50 50 mcg PO DAILY 04/12/22 05/17/22 05/17/22 History mcg (2,000 unit) tablet (Vitamin D3) ferrous sulfate 325 mg (65 mg 325 mg PO DAILY 04/12/22 05/17/22 05/17/22 History iron) tablet,delayed release lisinopril 20 mg tablet 1 tab PO DAILY 04/12/22 05/17/22 05/17/22 History ropinirole 3 mg tablet 6 mg PO DAILY@1200 04/12/22 05/17/22 05/17/22 History trazodone 100 mg tablet 3 tab PO BEDTIME PRN insomnia 04/12/22 05/17/22 05/16/22 History Exam Exam Date and Time: May 29, 2022 0731 Height,Weight and Vital Signs: Height 5 ft 7 in Weight 92.533 kg Last Vital Signs Temp 98.1 F 05/28/22 23:45 Pulse 85 05/28/22 23:45 Resp 18 05/28/22 23:45 BP 138/75 05/28/22 23:45 Pulse Ox 94 05/28/22 23:45 O2 Del Method 05/28/22 23:45 O2 Flow Rate 2 05/22/22 15:01 Pertinent Lab Results Pertinent Lab Results: Laboratory Tests 05/17/22 05/17/22 05/17/22 18:07 18:07 18:07 WBC 9.8 RBC 3.84 L Hgb 12.2 L Hct 38.4 L MCV 100.0 H MCH 31.8 MCHC 31.8 RDW 13.5 Plt Count TNP MPV 9.1 L Immature Gran % (Auto) Cancelled Neut % (Auto) Cancelled Lymph % (Auto) Cancelled [place] % (Auto) Cancelled Eos % (Auto) Cancelled Baso % (Auto) Cancelled Lymph # (Auto) Cancelled [place] # (Auto) Cancelled Eos # (Auto) Cancelled Baso # (Auto) Cancelled Abs Immat Gran (auto) Cancelled Absolute Neuts (auto) Cancelled Absolute Nucleated RBC 0.000 Nucleated RBC % (auto) 0.0 Neutrophils % (Manual) 43 L Band Neutrophils % 49 H Lymphocytes % (Manual) 3 L Monocytes % (Manual) 4 Eosinophils % (Manual) 1 Basophils % (Manual) Metamyelocytes % Myelocytes % Abs Neuts (Manual) 9.0 H Lymphocytes # (Manual) 0.3 L Monocytes # (Manual) 0.4 Eosinophils # (Manual) 0.1 Basophils # (Manual) Metamyelocytes # Myelocytes # Platelet Estimate NORMAL Large Platelets Plt Morphology Comment NORMAL RBC Morphology NORMAL Polychromasia Hypochromasia Macrocytosis [place] Cells Acanthocytes (Spur) Smear Tech's Comments PT INR VBG pH VBG pCO2 VBG pO2 VBG HCO3 VBG O2 Saturation VBG Base Excess Sodium 141 Potassium 4.6 D Chloride 103 Carbon Dioxide 26 Anion Gap 17 BUN 41 H Creatinine 3.18 H Estim Creat Clear Calc 22.7 Estimated GFR 19 POC Glucose Random Glucose 118 H Lactic Acid 1.2 Calcium 8.4 Total Bilirubin 1.0 Direct Bilirubin 0.6 H AST 18 ALT < 6 Alkaline Phosphatase 105 Ammonia Troponin I High Sens B-Natriuretic Peptide Total Protein 5.6 L Albumin 3.2 L Urine Color Urine Appearance Urine pH Ur Specific [place] Urine Protein Urine Glucose (UA) Urine Ketones Urine Blood Urine Nitrite Ur Leukocyte Esterase Urine RBC Urine WBC Ur Squamous Epith Cells Urine Bacteria Hyaline Casts Granular Casts COVID-19 (NITO) COVID-19 Clin Com Hep Bs Antigen Hep Bs Antibody Hep B Core Total Ab Blood Type Antibody Screen 05/17/22 05/17/22 05/17/22 19:37 20:40 20:40 WBC RBC Hgb Hct MCV MCH MCHC RDW Plt Count MPV Immature Gran % (Auto) Neut % (Auto) Lymph % (Auto) [place] % (Auto) Eos % (Auto) Baso % (Auto) Lymph # (Auto) [place] # (Auto) Eos # (Auto) Baso # (Auto) Abs Immat Gran (auto) Absolute Neuts (auto) Absolute Nucleated RBC Nucleated RBC % (auto) Neutrophils % (Manual) Band Neutrophils % Lymphocytes % (Manual) Monocytes % (Manual) Eosinophils % (Manual) Basophils % (Manual) Metamyelocytes % Myelocytes % Abs Neuts (Manual) Lymphocytes # (Manual) Monocytes # (Manual) Eosinophils # (Manual) Basophils # (Manual) Metamyelocytes # Myelocytes # Platelet Estimate Large Platelets Plt Morphology Comment RBC Morphology Polychromasia Hypochromasia Macrocytosis [place] Cells Acanthocytes (Spur) Smear Tech's Comments PT INR VBG pH VBG pCO2 VBG pO2 VBG HCO3 VBG O2 Saturation VBG Base Excess Sodium Potassium Chloride Carbon Dioxide Anion Gap BUN Creatinine Estim Creat Clear Calc Estimated GFR POC Glucose Random Glucose Lactic Acid Calcium Total Bilirubin Direct Bilirubin AST ALT Alkaline Phosphatase Ammonia 37 Troponin I High Sens B-Natriuretic Peptide 172 H Total Protein Albumin Urine Color Urine Appearance Urine pH Ur Specific [place] Urine Protein Urine Glucose (UA) Urine Ketones Urine Blood Urine Nitrite Ur Leukocyte Esterase Urine RBC Urine WBC Ur Squamous Epith Cells Urine Bacteria Hyaline Casts Granular Casts COVID-19 (NITO) Negative COVID-19 Clin Com See Note Hep Bs Antigen Hep Bs Antibody Hep B Core Total Ab Blood Type Antibody Screen 05/17/22 05/17/22 05/17/22 22:17 22:17 22:34 WBC RBC Hgb Hct MCV MCH MCHC RDW Plt Count MPV Immature Gran % (Auto) Neut % (Auto) Lymph % (Auto) [place] % (Auto) Eos % (Auto) Baso % (Auto) Lymph # (Auto) [place] # (Auto) Eos # (Auto) Baso # (Auto) Abs Immat Gran (auto) Absolute Neuts (auto) Absolute Nucleated RBC Nucleated RBC % (auto) Neutrophils % (Manual) Band Neutrophils % Lymphocytes % (Manual) Monocytes % (Manual) Eosinophils % (Manual) Basophils % (Manual) Metamyelocytes % Myelocytes % Abs Neuts (Manual) Lymphocytes # (Manual) Monocytes # (Manual) Eosinophils # (Manual) Basophils # (Manual) Metamyelocytes # Myelocytes # Platelet Estimate Large Platelets Plt Morphology Comment RBC Morphology Polychromasia Hypochromasia Macrocytosis [place] Cells Acanthocytes (Spur) Smear Tech's Comments PT 13.0 INR 1.1 VBG pH VBG pCO2 VBG pO2 VBG HCO3 VBG O2 Saturation VBG Base Excess Sodium Potassium Chloride Carbon Dioxide Anion Gap BUN Creatinine Estim Creat Clear Calc Estimated GFR POC Glucose Random Glucose Lactic Acid Calcium Total Bilirubin Direct Bilirubin AST ALT Alkaline Phosphatase Ammonia Troponin I High Sens B-Natriuretic Peptide Total Protein Albumin Urine Color Epes A Urine Appearance Turbid Urine pH 5.5 Ur Specific [place] 1.020 Urine Protein 100 (2+) H Urine Glucose (UA) 100 H Urine Ketones Negative Urine Blood Moderate (2+) H Urine Nitrite Positive H Ur Leukocyte Esterase Small (1+) H Urine RBC 3-5 H Urine WBC 6-10 H Ur Squamous Epith Cells >20 Urine Bacteria None Seen Hyaline Casts 3-5 Granular Casts Present COVID-19 (NITO) COVID-19 Clin Com Hep Bs Antigen Hep Bs Antibody Hep B Core Total Ab Blood Type O Negative Antibody Screen NEGATIVE 05/17/22 05/18/22 05/18/22 22:48 03:03 17:29 WBC 10.7 RBC 3.74 L Hgb 12.1 L Hct 38.3 L MCV 102.4 H MCH 32.4 MCHC 31.6 RDW 13.9 Plt Count 242 MPV 9.3 L Immature Gran % (Auto) Neut % (Auto) Lymph % (Auto) [place] % (Auto) Eos % (Auto) Baso % (Auto) Lymph # (Auto) [place] # (Auto) Eos # (Auto) Baso # (Auto) Abs Immat Gran (auto) Absolute Neuts (auto) Absolute Nucleated RBC 0.000 Nucleated RBC % (auto) 0.0 Neutrophils % (Manual) Band Neutrophils % Lymphocytes % (Manual) Monocytes % (Manual) Eosinophils % (Manual) Basophils % (Manual) Metamyelocytes % Myelocytes % Abs Neuts (Manual) Lymphocytes # (Manual) Monocytes # (Manual) Eosinophils # (Manual) Basophils # (Manual) Metamyelocytes # Myelocytes # Platelet Estimate Large Platelets Plt Morphology Comment RBC Morphology Polychromasia Hypochromasia Macrocytosis [place] Cells Acanthocytes (Spur) Smear Tech's Comments PT INR VBG pH VBG pCO2 VBG pO2 VBG HCO3 VBG O2 Saturation VBG Base Excess Sodium Potassium Chloride Carbon Dioxide Anion Gap BUN Creatinine Estim Creat Clear Calc Estimated GFR POC Glucose Random Glucose Lactic Acid Calcium Total Bilirubin Direct Bilirubin AST ALT Alkaline Phosphatase Ammonia Troponin I High Sens 4.4 B-Natriuretic Peptide 170 H Total Protein Albumin Urine Color Urine Appearance Urine pH Ur Specific [place] Urine Protein Urine Glucose (UA) Urine Ketones Urine Blood Urine Nitrite Ur Leukocyte Esterase Urine RBC Urine WBC Ur Squamous Epith Cells Urine Bacteria Hyaline Casts Granular Casts COVID-19 (NITO) COVID-19 Clin Com Hep Bs Antigen Hep Bs Antibody Hep B Core Total Ab Blood Type Antibody Screen 05/18/22 05/18/22 05/19/22 17:29 17:41 06:45 WBC 11.6 H RBC 3.56 L Hgb 11.3 L Hct 36.0 L MCV 101.1 H MCH 31.7 MCHC 31.4 RDW 14.1 Plt Count 280 MPV 9.3 L Immature Gran % (Auto) Cancelled Neut % (Auto) Cancelled Lymph % (Auto) Cancelled [place] % (Auto) Cancelled Eos % (Auto) Cancelled Baso % (Auto) Cancelled Lymph # (Auto) Cancelled [place] # (Auto) Cancelled Eos # (Auto) Cancelled Baso # (Auto) Cancelled Abs Immat Gran (auto) Cancelled Absolute Neuts (auto) Cancelled Absolute Nucleated RBC 0.000 Nucleated RBC % (auto) 0.0 Neutrophils % (Manual) 73 Band Neutrophils % 18 H Lymphocytes % (Manual) 4 L Monocytes % (Manual) 3 Eosinophils % (Manual) Basophils % (Manual) Metamyelocytes % 1 Myelocytes % 1 Abs Neuts (Manual) 10.6 H Lymphocytes # (Manual) 0.5 L Monocytes # (Manual) 0.3 Eosinophils # (Manual) Basophils # (Manual) Metamyelocytes # 0.1 Myelocytes # 0.1 Platelet Estimate NORMAL Large Platelets Plt Morphology Comment NOTE RBC Morphology NOTED Polychromasia Hypochromasia Macrocytosis 1+ (5-14) [place] Cells 3+ (>5) Acanthocytes (Spur) 1+ (0-2) Smear Tech's Comments PT INR VBG pH 7.34 VBG pCO2 49 VBG pO2 132 VBG HCO3 27 H VBG O2 Saturation 100.0 VBG Base Excess 1.2 Sodium 140 Potassium 5.8 H D Chloride 105 Carbon Dioxide 19 L Anion Gap 22 H BUN 56 H Creatinine 4.68 H* Estim Creat Clear Calc 15.4 Estimated GFR 12 POC Glucose Random Glucose 111 Lactic Acid Calcium 7.7 L D Total Bilirubin Direct Bilirubin AST ALT Alkaline Phosphatase Ammonia Troponin I High Sens B-Natriuretic Peptide Total Protein Albumin Urine Color Urine Appearance Urine pH Ur Specific [place] Urine Protein Urine Glucose (UA) Urine Ketones Urine Blood Urine Nitrite Ur Leukocyte Esterase Urine RBC Urine WBC Ur Squamous Epith Cells Urine Bacteria Hyaline Casts Granular Casts COVID-19 (NITO) COVID-19 Clin Com Hep Bs Antigen Hep Bs Antibody Hep B Core Total Ab Blood Type Antibody Screen 05/19/22 05/19/22 05/20/22 06:45 09:14 06:23 WBC RBC Hgb Hct MCV MCH MCHC RDW Plt Count MPV Immature Gran % (Auto) Neut % (Auto) Lymph % (Auto) [place] % (Auto) Eos % (Auto) Baso % (Auto) Lymph # (Auto) [place] # (Auto) Eos # (Auto) Baso # (Auto) Abs Immat Gran (auto) Absolute Neuts (auto) Absolute Nucleated RBC Nucleated RBC % (auto) Neutrophils % (Manual) Band Neutrophils % Lymphocytes % (Manual) Monocytes % (Manual) Eosinophils % (Manual) Basophils % (Manual) Metamyelocytes % Myelocytes % Abs Neuts (Manual) Lymphocytes # (Manual) Monocytes # (Manual) Eosinophils # (Manual) Basophils # (Manual) Metamyelocytes # Myelocytes # Platelet Estimate Large Platelets Plt Morphology Comment RBC Morphology Polychromasia Hypochromasia Macrocytosis [place] Cells Acanthocytes (Spur) Smear Tech's Comments PT INR VBG pH VBG pCO2 VBG pO2 VBG HCO3 VBG O2 Saturation VBG Base Excess Sodium 142 Potassium 5.4 H Chloride 104 Carbon Dioxide 22 Anion Gap 21 H BUN 65 H Creatinine 5.08 H* Estim Creat Clear Calc 14.2 Estimated GFR 11 POC Glucose 116 H Random Glucose 121 H Lactic Acid Calcium 7.2 L D Total Bilirubin Direct Bilirubin AST ALT Alkaline Phosphatase Ammonia Troponin I High Sens B-Natriuretic Peptide Total Protein Albumin Urine Color Urine Appearance Urine pH Ur Specific [place] Urine Protein Urine Glucose (UA) Urine Ketones Urine Blood Urine Nitrite Ur Leukocyte Esterase Urine RBC Urine WBC Ur Squamous Epith Cells Urine Bacteria Hyaline Casts Granular Casts COVID-19 (NITO) COVID-19 Clin Com Hep Bs Antigen Negative Hep Bs Antibody NONREACTIVE Hep B Core Total Ab Nonreactive Blood Type Antibody Screen 05/20/22 05/20/22 05/21/22 07:43 07:45 08:33 WBC 14.9 H RBC 3.68 L Hgb 11.6 L Hct 36.4 L MCV 98.9 H MCH 31.5 MCHC 31.9 RDW 14.1 Plt Count 294 MPV 9.3 L Immature Gran % (Auto) Neut % (Auto) Lymph % (Auto) [place] % (Auto) Eos % (Auto) Baso % (Auto) Lymph # (Auto) [place] # (Auto) Eos # (Auto) Baso # (Auto) Abs Immat Gran (auto) Absolute Neuts (auto) Absolute Nucleated RBC 0.000 Nucleated RBC % (auto) 0.0 Neutrophils % (Manual) Band Neutrophils % Lymphocytes % (Manual) Monocytes % (Manual) Eosinophils % (Manual) Basophils % (Manual) Metamyelocytes % Myelocytes % Abs Neuts (Manual) Lymphocytes # (Manual) Monocytes # (Manual) Eosinophils # (Manual) Basophils # (Manual) Metamyelocytes # Myelocytes # Platelet Estimate Large Platelets Plt Morphology Comment RBC Morphology Polychromasia Hypochromasia Macrocytosis [place] Cells Acanthocytes (Spur) Smear Tech's Comments PT INR VBG pH VBG pCO2 VBG pO2 VBG HCO3 VBG O2 Saturation VBG Base Excess Sodium 143 153 H Potassium 4.9 4.1 Chloride 106 112 H Carbon Dioxide 18 L 24 Anion Gap 24 H 21 H BUN 92 H 90 H Creatinine 5.05 H* 2.71 H Estim Creat Clear Calc 14.3 26.7 Estimated GFR 11 23 POC Glucose Random Glucose 114 90 Lactic Acid Calcium 7.7 L D 8.3 L D Total Bilirubin Direct Bilirubin AST ALT Alkaline Phosphatase Ammonia Troponin I High Sens B-Natriuretic Peptide Total Protein Albumin Urine Color Urine Appearance Urine pH Ur Specific [place] Urine Protein Urine Glucose (UA) Urine Ketones Urine Blood Urine Nitrite Ur Leukocyte Esterase Urine RBC Urine WBC Ur Squamous Epith Cells Urine Bacteria Hyaline Casts Granular Casts COVID-19 (NITO) COVID-19 Clin Com Hep Bs Antigen Hep Bs Antibody Hep B Core Total Ab Blood Type Antibody Screen 05/22/22 05/22/22 05/22/22 07:08 07:08 17:59 WBC 11.6 H RBC 3.88 L Hgb 12.3 L Hct 38.1 L MCV 98.2 H MCH 31.7 MCHC 32.3 RDW 14.2 Plt Count 395 D MPV 8.9 L Immature Gran % (Auto) 2.4 H Neut % (Auto) 79.3 H Lymph % (Auto) 7.1 L [place] % (Auto) 10.5 Eos % (Auto) 0.3 Baso % (Auto) 0.4 Lymph # (Auto) 0.8 L [place] # (Auto) 1.2 Eos # (Auto) 0.0 Baso # (Auto) 0.1 Abs Immat Gran (auto) 0.28 H Absolute Neuts (auto) 9.2 H Absolute Nucleated RBC 0.000 Nucleated RBC % (auto) 0.0 Neutrophils % (Manual) Band Neutrophils % Lymphocytes % (Manual) Monocytes % (Manual) Eosinophils % (Manual) Basophils % (Manual) Metamyelocytes % Myelocytes % Abs Neuts (Manual) Lymphocytes # (Manual) Monocytes # (Manual) Eosinophils # (Manual) Basophils # (Manual) Metamyelocytes # Myelocytes # Platelet Estimate Large Platelets Plt Morphology Comment RBC Morphology Polychromasia Hypochromasia Macrocytosis [place] Cells Acanthocytes (Spur) Smear Tech's Comments PT INR VBG pH VBG pCO2 VBG pO2 VBG HCO3 VBG O2 Saturation VBG Base Excess Sodium 154 H 152 H Potassium 3.8 Chloride 113 H Carbon Dioxide 29 Anion Gap 16 BUN 64 H Creatinine 1.29 Estim Creat Clear Calc 56.1 Estimated GFR 55 POC Glucose Random Glucose 130 H Lactic Acid Calcium 8.7 Total Bilirubin Direct Bilirubin AST ALT Alkaline Phosphatase Ammonia Troponin I High Sens B-Natriuretic Peptide Total Protein Albumin Urine Color Urine Appearance Urine pH Ur Specific [place] Urine Protein Urine Glucose (UA) Urine Ketones Urine Blood Urine Nitrite Ur Leukocyte Esterase Urine RBC Urine WBC Ur Squamous Epith Cells Urine Bacteria Hyaline Casts Granular Casts COVID-19 (NITO) COVID-19 Clin Com Hep Bs Antigen Hep Bs Antibody Hep B Core Total Ab Blood Type Antibody Screen 05/23/22 05/23/22 05/24/22 08:27 15:04 06:07 WBC 18.5 H RBC 3.56 L Hgb 11.2 L Hct 35.5 L MCV 99.7 H MCH 31.5 MCHC 31.5 RDW 14.5 Plt Count 413 H MPV 8.8 L Immature Gran % (Auto) 4.6 H Neut % (Auto) 79.9 H Lymph % (Auto) 7.4 L [place] % (Auto) 4.7 Eos % (Auto) 2.9 Baso % (Auto) 0.5 Lymph # (Auto) 1.4 [place] # (Auto) 0.9 Eos # (Auto) 0.5 H Baso # (Auto) 0.1 Abs Immat Gran (auto) 0.84 H Absolute Neuts (auto) 14.8 H Absolute Nucleated RBC 0.000 Nucleated RBC % (auto) 0.0 Neutrophils % (Manual) Band Neutrophils % Lymphocytes % (Manual) Monocytes % (Manual) Eosinophils % (Manual) Basophils % (Manual) Metamyelocytes % Myelocytes % Abs Neuts (Manual) Lymphocytes # (Manual) Monocytes # (Manual) Eosinophils # (Manual) Basophils # (Manual) Metamyelocytes # Myelocytes # Platelet Estimate Large Platelets Plt Morphology Comment RBC Morphology Polychromasia Hypochromasia Macrocytosis [place] Cells Acanthocytes (Spur) Smear Tech's Comments PT INR VBG pH VBG pCO2 VBG pO2 VBG HCO3 VBG O2 Saturation VBG Base Excess Sodium 152 H 147 H Potassium 3.8 Chloride 110 H Carbon Dioxide 29 Anion Gap 17 BUN 40 H Creatinine 0.91 Estim Creat Clear Calc 79.5 Estimated GFR > 60 POC Glucose Random Glucose 123 H Lactic Acid Calcium 8.5 Total Bilirubin Direct Bilirubin AST ALT Alkaline Phosphatase Ammonia Troponin I High Sens B-Natriuretic Peptide Total Protein Albumin Urine Color Urine Appearance Urine pH Ur Specific [place] Urine Protein Urine Glucose (UA) Urine Ketones Urine Blood Urine Nitrite Ur Leukocyte Esterase Urine RBC Urine WBC Ur Squamous Epith Cells Urine Bacteria Hyaline Casts Granular Casts COVID-19 (NITO) COVID-19 Clin Com Hep Bs Antigen Hep Bs Antibody Hep B Core Total Ab Blood Type Antibody Screen 05/25/22 05/25/22 05/27/22 07:48 07:48 06:15 WBC 19.4 H 24.6 H RBC 3.60 L 3.45 L Hgb 11.4 L 10.9 L Hct 35.7 L 33.6 L MCV 99.2 H 97.4 MCH 31.7 31.6 MCHC 31.9 32.4 RDW 14.6 14.6 Plt Count 412 H 464 H MPV 9.2 L 8.5 L Immature Gran % (Auto) 5.0 H 3.1 H Neut % (Auto) 81.9 H 84.7 H Lymph % (Auto) 7.2 L 7.0 L [place] % (Auto) 3.3 3.6 Eos % (Auto) 2.0 1.2 Baso % (Auto) 0.6 0.4 Lymph # (Auto) 1.4 1.7 [place] # (Auto) 0.7 0.9 Eos # (Auto) 0.4 0.3 Baso # (Auto) 0.1 0.1 Abs Immat Gran (auto) 0.97 H 0.77 H Absolute Neuts (auto) 15.9 H 20.9 H Absolute Nucleated RBC 0.000 0.000 Nucleated RBC % (auto) 0.0 0.0 Neutrophils % (Manual) Band Neutrophils % Lymphocytes % (Manual) Monocytes % (Manual) Eosinophils % (Manual) Basophils % (Manual) Metamyelocytes % Myelocytes % Abs Neuts (Manual) Lymphocytes # (Manual) Monocytes # (Manual) Eosinophils # (Manual) Basophils # (Manual) Metamyelocytes # Myelocytes # Platelet Estimate Large Platelets Plt Morphology Comment RBC Morphology Polychromasia Hypochromasia Macrocytosis Darren Cells Acanthocytes (Spur) Smear Tech's Comments VERIFIED PT INR VBG pH VBG pCO2 VBG pO2 VBG HCO3 VBG O2 Saturation VBG Base Excess Sodium 150 H Potassium 3.8 Chloride 110 H Carbon Dioxide 28 Anion Gap 16 BUN 21 H Creatinine 0.68 Estim Creat Clear Calc 106.4 Estimated GFR > 60 POC Glucose Random Glucose 89 Lactic Acid Calcium 7.7 L D Total Bilirubin Direct Bilirubin AST ALT Alkaline Phosphatase Ammonia Troponin I High Sens B-Natriuretic Peptide Total Protein Albumin Urine Color Urine Appearance Urine pH Ur Specific [place] Urine Protein Urine Glucose (UA) Urine Ketones Urine Blood Urine Nitrite Ur Leukocyte Esterase Urine RBC Urine WBC Ur Squamous Epith Cells Urine Bacteria Hyaline Casts Granular Casts COVID-19 (NITO) COVID-19 Clin Com Hep Bs Antigen Hep Bs Antibody Hep B Core Total Ab Blood Type Antibody Screen 05/27/22 05/28/22 06:15 06:12 WBC 20.7 H RBC 3.26 L Hgb 10.3 L Hct 31.8 L MCV 97.5 MCH 31.6 MCHC 32.4 RDW 14.6 Plt Count 469 H MPV 8.5 L Immature Gran % (Auto) Neut % (Auto) Lymph % (Auto) [place] % (Auto) Eos % (Auto) Baso % (Auto) Lymph # (Auto) [place] # (Auto) Eos # (Auto) Baso # (Auto) Abs Immat Gran (auto) Absolute Neuts (auto) Absolute Nucleated RBC 0.000 Nucleated RBC % (auto) 0.0 Neutrophils % (Manual) 86 H Band Neutrophils % 2 L Lymphocytes % (Manual) 5 L Monocytes % (Manual) 2 Eosinophils % (Manual) 2 Basophils % (Manual) 3 H Metamyelocytes % Myelocytes % Abs Neuts (Manual) 18.2 H Lymphocytes # (Manual) 1.0 L Monocytes # (Manual) 0.4 Eosinophils # (Manual) 0.4 Basophils # (Manual) 0.6 H Metamyelocytes # Myelocytes # Platelet Estimate INCREASED Large Platelets PRESENT Plt Morphology Comment NOTED RBC Morphology NOTED Polychromasia 1+ (0-2) Hypochromasia 1+ (5-14) Macrocytosis 1+ (5-14) Darren Cells Acanthocytes (Spur) Smear Tech's Comments PT INR VBG pH VBG pCO2 VBG pO2 VBG HCO3 VBG O2 Saturation VBG Base Excess Sodium 143 Potassium 3.3 Chloride 106 Carbon Dioxide 28 Anion Gap 12 BUN 13 Creatinine 0.59 Estim Creat Clear Calc 122.7 Estimated GFR > 60 POC Glucose Random Glucose 120 H Lactic Acid Calcium 7.4 L Total Bilirubin Direct Bilirubin AST ALT Alkaline Phosphatase Ammonia Troponin I High Sens B-Natriuretic Peptide Total Protein Albumin Urine Color Urine Appearance Urine pH Ur Specific [place] Urine Protein Urine Glucose (UA) Urine Ketones Urine Blood Urine Nitrite Ur Leukocyte Esterase Urine RBC Urine WBC Ur Squamous Epith Cells Urine Bacteria Hyaline Casts Granular Casts COVID-19 (NITO) COVID-19 Clin Com Hep Bs Antigen Hep Bs Antibody Hep B Core Total Ab Blood Type Antibody Screen Airway Mallampati Class: IV TM Dist: >3cm Neck ROM: Limited Loose/Missing/Broken Teeth: Yes Heart: S1,S2 Lungs: distant breath sounds Assessment and Plan Assessment Anesthesia Assessment: Anesthesia Plan Discussed and Chart Reviewed Final Anesthetic Review Family History of Problems with Anesthesia: No History of Problems with Anesthesia: No NPO: Yes ASA Class: IV and Emergency Final Preanesthetic Review: Meds/Allgs Chart Reviewed, Consent Obtained/Reviewed and Anes Risks/Benef Reviewed Patient Risk: High Procedure Risk: Intermediate Anesthetic Plan Anesthetic Plan: GA Disposition: Inp. Admit - Standard Bed
[2022-05-29] MEDS: Potassium Chloride/H20 10 MEQ/100 ML PIGGYBACK 100 MEQ IV (08:35)
[2022-05-29] MEDS: Acetaminophen 1,000 MG/100 ML PIGGYBACK 400 MG IV ×3 (08:55→19:38)
--- NOTE | 2022-05-29 09:47 | W.PM.OPN ---
Operative Note Operative Note Date of Service: 05/29/22 Narrative: Preoperative diagnosis: Fascial dehiscence status post Milla procedure Postoperative diagnosis: Same Procedure: Repair of fascial dehiscence, status post Milla procedure, revision of ostomy. Surgeon: Aric Mcneill MD Wind Turbine Installer: Homero Hamilton MD, Jessica Junior MD Anesthesia: General endotracheal Indications for procedure: 71-year-old male status post Milla procedure for perforated sigmoid diverticulitis found to have an elevated WBC leakage from incision. Subsequent CT revealed fascial dehiscence from the upper incision. Operative findings: Loosening of the midline fascial closure with herniating small bowel within the subcutaneous tissue. Specimen: None Estimated blood loss: 20 mL Complications: None Procedure details: Patient was brought to the OR placed in a supine position. After administering general anesthesia patient's abdomen was prepped with ChloraPrep and draped in a sterile fashion. Patient ostomy was covered with a 3M plastic barrier. A surgical time-out was called the consent confirmed. Patient received preoperative antibiotics and Venodyne boots were in place. The previous incision was then opened in the midline and carried down into the subcutaneous tissue. The above findings were noted. The previous fascial closure was then reopened the suture removed. Abdominal cavity was mobilized and some mild adhesions taken down with blunt dissection. The abdomen was explored and no abscess could be identified. Fascia was then further defined on both the left and right side using electrocautery. Fascia appeared to be intact without evidence of necrosis. The abdomen was irrigated thoroughly with IrriSept followed by saline solution. Two retention sutures were placed prior to closure of the fascia. Fascia was then closed using [id number] Polysorb sutures beginning at the superior incision and working inferiorly. Dermis was then reapproximated using interrupted 3-0 Polysorb sutures. Emma of 0.5 cm had a former then placed between the dermal sutures. Attention was then directed to the ostomy which had slipped from its attachments at the dermis. The ostomy was mobilized bluntly and brought up through the incision. Seromuscular sutures of the bowel were then attached to the dermis using 3-0 Polysorb suture. Sterile dressings were then applied an ostomy bag applied. The patient tolerated the procedure well. Sponge, instrument, and needle counts reported as correct. The patient was transferred to PACU in stable condition.
[2022-05-29] MEDS: HYDROmorphone HCl 0.5 MG/0.5 ML SYRINGE 0.25 MG IVPUSH ×4 (10:17→10:37)
[2022-05-29 10:31] LABS: Hematocrit 37.8 % (42.0-52.0); Hemoglobin 11.9 g/dl (14.0-18.0); Mean Corpuscular HGB Conc 31.5 g/dl (31.0-36.0); Mean Corpuscular Volume 98.4 fL (80.0-98.0); Mean Platelet Volume 8.2 fL (9.4-12.4); Platelet Count 581 X10*3/uL (160-400); Red Blood Count 3.84 X10*6/uL (4.60-5.80); White Blood Count 29.9 X10*3/uL (4.8-10.8)
[2022-05-29] MEDS: fentaNYL citrate/PF 100 MCG/2 ML VIAL 25 MCG IVPUSH (11:00)
[2022-05-29 11:14] LABS: Anion Gap 13 (12-20); Blood Urea Nitrogen 6 mg/dL (9-16); Calcium 7.5 mg/dL (8.4-10.2); Carbon Dioxide 26 mmol/L (22-29); Chloride 106 mmol/L (96-108); Creatinine Clr Calc Pharmacy 131.6; Estimated Glomerular Filt Rate > 60; Glucose Random 126 mg/dL (60-115); Magnesium 1.2 mg/dL (1.6-2.6); Phosphorus 3.1 mg/dL (2.7-4.5); Potassium 3.3 mmol/L (3.3-5.1); Sodium 142 mmol/L (135-145)
[2022-05-29] MEDS: 0.9 % Sodium Chloride 1,000 ML 100 ML IVCONT (11:28)
[2022-05-29] MEDS: Fluticasone Propionate Nasal 16 GM SPRAY 1 SPRAY NOSTRIL-B (11:29)
[2022-05-29] MEDS: Finasteride 5 MG TABLET PO (11:30)
[2022-05-29] MEDS: rOPINIRole HCL 2 MG TABLET 6 MG PO (11:30)
[2022-05-29] MEDS: Carbidopa/Levodopa 25/100 TABLET 1 TAB PO ×3 (11:30→19:40)
[2022-05-29] MEDS: DULoxetine HCl 30 MG CAPSULE.DR PO (11:30)
[2022-05-29] MEDS: Tamsulosin HCL 0.4 MG CAPSULE PO ×2 (11:31→19:40)
[2022-05-29] MEDS: dilTIAZem HCL CD 240 MG CAP.ER.DEG PO (11:31)
[2022-05-29] MEDS: Memantine HCl 5 MG TABLET PO ×2 (11:31→19:40)
[2022-05-29] MEDS: Pregabalin 150 MG CAPSULE PO ×2 (11:31→19:40)
--- NOTE | 2022-05-29 11:37 | P.PNIM_ITS ---
Subjective Subjective Date of Service: 05/29/22 Interval History: seen and examined this morning follow up for medical consultation for increasing leukocytosis patient is awake and alert no significant abdominal pain. denies fever, reports feeling a little cold this morning. no cough, sob, dysuria Review of Systems Review of Systems: Yes all other systems are reviewed and are negative Constitutional Constitutional: Denies chills and Denies fever(s) Cardiovascular Cardiovascular: Denies chest pain, Denies palpitations and Denies dyspnea Respiratory Respiratory: Denies cough and Denies dyspnea Gastrointestinal Gastrointestinal: Denies abdominal pain, Denies nausea and Denies vomiting Genitourinary Genitourinary: Denies dysuria Endocrine Endocrine: Denies palpitations Physical Exam Vital Signs: Vital Signs: Last Vital Signs Temp 97.9 F 05/29/22 10:47 Pulse 84 05/29/22 10:47 Resp 15 05/29/22 11:00 BP 129/68 05/29/22 10:47 Pulse Ox 97 05/29/22 10:47 O2 Del Method 05/29/22 10:47 O2 Flow Rate 2 05/29/22 10:47 BMI result Body Mass Index 31.9 Appearing in no acute distress lung sounds are clear to auscultation heart regular rate rhythm, clear S1, S2 positive bowel sounds, abdomen is soft, nontender neuro patient is alert x3, no focal deficits Objective Data Active Medications Amantadine HCl (Amantadine Hcl 100 Mg Capsule) 100 mg PO Q2D [facility] Last Admin: 05/28/22 16:40 Dose: 100 mg Documented By: DENISHA Baclofen (Baclofen 20 Mg Tablet) 20 mg PO BID PRN PRN Reason: pain (scale score 4-6) Last Admin: 05/28/22 09:32 Dose: 20 mg Documented By: DENISHA Buspirone HCl (Buspirone Hcl 10 Mg Tablet) 10 mg PO BID PRN PRN Reason: Anxiety Last Admin: 05/28/22 09:32 Dose: 10 mg Documented By: DENISHA Carbidopa/Levodopa (Carbidopa/Levodopa 25/100 Tablet) 1 tab PO QID [facility] Last Admin: 05/29/22 11:30 Dose: 1 tab Documented By: LISA Diltiazem HCl (Diltiazem Hcl Cd 240 Mg Cap.Er.Deg) 240 mg PO DAILY [facility]; Protocol Last Admin: 05/29/22 11:31 Dose: 240 mg Documented By: LISA Donepezil HCl (Donepezil Hcl 10 Mg Tablet) 10 mg PO BEDTIME [facility] Last Admin: 05/28/22 19:45 Dose: 10 mg Documented By: J LUIS Duloxetine HCl (Duloxetine Hcl 30 Mg Capsule.Dr) 30 mg PO DAILY [facility] Last Admin: 05/29/22 11:30 Dose: 30 mg Documented By: LISA Fentanyl (Fentanyl Citrate/Pf 100 Mcg/2 Ml Vial) 25 mcg IVPUSH Q5M PRN; Protocol PRN Reason: Pain, Moderate (Pain Scale 4-6 Last Admin: 05/29/22 11:00 Dose: 25 mcg Documented By: EMMANUEL Finasteride (Finasteride 5 Mg Tablet) 5 mg PO DAILY [facility] Last Admin: 05/29/22 11:30 Dose: 5 mg Documented By: LISA Fluticasone Propionate (Fluticasone Propionate Nasal 16 [place]) 1 spray NOSTRIL-B BID [facility] Last Admin: 05/29/22 11:29 Dose: 1 spray Documented By: LISA Heparin Sodium (Porcine) (Heparin Sodium,Porcine 5,000 Unit/Ml Vial) 5,000 unit SUBCUT Q12H [facility] Last Admin: 05/29/22 04:35 Dose: 5,000 unit Documented By: J LUIS Sodium Chloride (Ns) 1,000 mls @ 100 mls/hr IVCONT .Q10H [facility] Last Admin: 05/29/22 11:28 Dose: 100 mls/hr Documented By: LISA Acetaminophen (Ofirmev) 1,000 mg in 100 mls @ 400 mls/hr IV Q6H [facility] Last Infusion: 05/29/22 11:23 Dose: 400 mls/hr Documented By: LISA Levothyroxine Sodium (Levothyroxine Sodium 50 Mcg Tablet) 50 mcg PO DAILY@0600 [facility] Last Admin: 05/29/22 04:32 Dose: 50 mcg Documented By: J LUIS Lidocaine (Lidocaine 4 % Patch Adh..Patch) 1 patch TRANSDERMA DAILY [facility] Last Admin: 05/29/22 11:29 Dose: Not Given Documented By: LISA Non-Admin Reason: Patient Refused Magnesium Hydroxide (Milk Of Magnesia 30 Ml Oral.Susp) 30 ml PO DAILY PRN PRN Reason: Constipation Memantine (Memantine Hcl 5 Mg Tablet) 5 mg PO BID [facility] Last Admin: 05/29/22 11:31 Dose: 5 mg Documented By: LISA Morphine Sulfate (Morphine Sulfate 4 Mg/Ml Cartridge) 4 mg IVPUSH Q4H PRN; Protocol PRN Reason: Pain, Severe (Pain Scale 7-10) Omeprazole (Omeprazole 20 Mg Capsule.Dr) 20 mg PO DAILY@0630 [facility] Last Admin: 05/29/22 04:31 Dose: 20 mg Documented By: J LUIS Oxycodone HCl (Oxycodone Hcl Immed Release 5 Mg Tablet) 5 mg PO Q4H PRN PRN Reason: Pain, Mild (Pain Scale 1-3) Last Admin: 05/29/22 11:29 Dose: 5 mg Documented By: LISA Pharmacy Consult (Consult Rx Perform Med Rec) 1 each MISCELLANE ONCE PRN PRN Reason: Consult order Pregabalin (Pregabalin 150 Mg Capsule) 150 mg PO BID [facility] Last Admin: 05/29/22 11:31 Dose: 150 mg Documented By: LISA Prochlorperazine Edisylate (Prochlorperazine Edisylate 10 Mg/2 Ml Vial) 5 mg IVPUSH Q6H PRN PRN Reason: Nausea and Vomiting Last Admin: 05/27/22 19:15 Dose: 5 mg Documented By: KRISTA Ropinirole HCl (Ropinirole Hcl 2 Mg Tablet) 6 mg PO DAILY@1200 [facility] Last Admin: 05/29/22 11:30 Dose: 6 mg Documented By: LISA Ropinirole HCl (Ropinirole Hcl 2 Mg Tablet) 12 mg PO BEDTIME [facility] Last Admin: 05/28/22 19:44 Dose: 12 mg Documented By: J LUIS Sodium Chloride (0.9 % Sodium Chloride Flush 3 Ml Syringe) 3 ml IVFLUSH QSHIFT [facility] Last Admin: 05/29/22 07:22 Dose: Not Given Documented By: JAVIER Non-Admin Reason: off unit-surgery Tamsulosin HCl (Tamsulosin Hcl 0.4 Mg Capsule) 0.4 mg PO BID [facility] Last Admin: 05/29/22 11:31 Dose: 0.4 mg Documented By: LISA Tizanidine HCl (Tizanidine Hcl 4 Mg Tablet) 4 mg PO DAILY PRN PRN Reason: muscle spasticity Last Admin: 05/28/22 16:35 Dose: 4 mg Documented By: DENISHA Trazodone HCl (Trazodone Hcl 100 Mg Tablet) 300 mg PO BEDTIME PRN PRN Reason: insomnia Last Admin: 05/28/22 23:45 Dose: 300 mg Documented By: J LUIS Labs 05/29/22 10:24 05/29/22 10:24 Labs: Laboratory Results - last 24 hr 05/29/22 05/29/22 10:24 10:24 MCV 98.4 H MCH 31.0 MCHC 31.5 RDW 15.0 Plt Count 581 H MPV 8.2 L Absolute Nucleated RBC 0.000 Nucleated RBC % (auto) 0.0 Anion Gap 13 Estim Creat Clear Calc 131.6 Estimated GFR > 60 Random Glucose 126 H Calcium 7.5 L Phosphorus 3.1 Magnesium 1.2 L* Assessment and Plan (1) Perforated diverticulum of large intestine: Status: Acute (2) Leukocytosis: Status: Acute Plan This is a 71 year old male with history of Parkinson's disease, chronic back pain, HTN, BPH, hypothyroidism, recent admission for PNA and fusobacterium bacteremia admitted 05/17 with abdominal pain found to have perforated div erticulitis with intraabdominal abscess s/p Milla procedure course complicated by LILIANA, hyperactive delirium which have since resolved now with increasing leukocytosis. Leukocytosis wbc trending up,no fever, abdomen likely source repeat abdominal CT 05/28/22 showing new fluid collection along incisional hernia and persistent inflammation around descending colostomy with abdominal wall fluid collection Today status post repair of fascial dehiscence and revision of ostomy blood cx pending hypomagnesemia replete mag follow closely Milla procedure for perf diverticulitis 05/18/22 hypernatremia resolved LILIANA resolved toxic metabolic encephalopathy resolved anemia chronic, H/H at baseline dvt ppx - heparin attending - dr. cha Thank you for allowing us to participate in the care of this patient. We will follow along with you. Time Spent With Patient Time: Total time managing care of this patient today ____ minutes. Quality Stroke Does the patient have a stroke diagnosis?: No VTE Prior VTE?: No VTE Risk Level:: Surgical - high VTE Device Contraindication: N/A - Device Ordered VTE Drug Contraindication: N/A - Med Ordered
--- NOTE | 2022-05-29 11:53 | PM.PNNEP ---
Subjective Subjective Date of Service: 05/29/22 Interval history: seen and examined no complaints Physical Exam Vital Signs: Vital Signs: Last Vital Signs Temp 97.5 F 05/29/22 11:48 Pulse 66 05/29/22 11:48 Resp 16 05/29/22 11:48 BP 149/67 H 05/29/22 11:48 Pulse Ox 97 05/29/22 11:48 O2 Del Method 05/29/22 11:48 O2 Flow Rate 2 05/29/22 10:47 BMI result Body Mass Index 31.9 Const: General: no acute distress HEENT: Head: Yes normocephalic and Yes atraumatic Neck: Neck: Yes supple Resp: Auscultation: diminished lung sounds Cardio: Heart sounds: S1 normal heart sound present and S2 normal heart sound present GI: Palpation (GI): Soft to palpation and nontender Extrem: General: Yes normal to inspection Objective Data Labs 05/29/22 10:24 05/29/22 10:24 Labs: Laboratory Results - last 24 hr 05/29/22 05/29/22 10:24 10:24 WBC 29.9 H RBC 3.84 L Hgb 11.9 L Hct 37.8 L MCV 98.4 H MCH 31.0 MCHC 31.5 RDW 15.0 Plt Count 581 H MPV 8.2 L Absolute Nucleated RBC 0.000 Nucleated RBC % (auto) 0.0 Sodium 142 Potassium 3.3 Chloride 106 Carbon Dioxide 26 Anion Gap 13 BUN 6 L Creatinine 0.55 Estim Creat Clear Calc 131.6 Estimated GFR > 60 Random Glucose 126 H Calcium 7.5 L Phosphorus 3.1 Magnesium 1.2 L* Microbiology Microbiology Results: Microbiology 05/17/22 18:07 Blood - Venous Blood Culture - Final No growth after 5 days. 05/18/22 08:43 Abscess Intra-abdominal Gram Stain - Final 05/18/22 08:43 Abscess Intra-abdominal Routine Culture - Final 05/17/22 19:37 Blood - Venous Blood Culture - Final Coag negative Staphylococcus 05/17/22 22:50 Urine clean catch - Urine king top Urine Culture - Final No growth. Procedures Date of Service Date of Service: 05/29/22 Assessment & Plan Assessment and plan (1) LILIANA (acute kidney injury): Status: Acute (2) Hypernatremia: Status: Acute (3) Hypokalemia: Status: Acute Plan LILIANA resolved free water deficit corrected REC replace potassium follow kidney function and electrolytes Time Spent With Patient Time: Total time managing care of this patient today ____ minutes. Progress Note: Quality Stroke Does the patient have a stroke diagnosis?: No
[2022-05-29] MEDS: Magnesium Sulfate/H2O 2 GM/50 ML PIGGYBACK IV (12:27)
[2022-05-29] MEDS: Morphine Sulfate 4 MG/ML CARTRIDGE IVPUSH (12:27)
[2022-05-29] MEDS: KCl 20 mEq in 0.9 % Sodium ChL 20 MEQ/1,000 ML IV.SOLN 80 MEQ IVCONT (13:20)
[2022-05-29 13:39] LABS: Base Excess Bedside Calculated 5 mmol/L (-3-3); Glucose, i-STAT 196 mg/dL (60-115); HCO3 Bedside Calculated 30 mmol/L (22-26); Hematocrit Bedside 30 %PCV (42-52); Hemoglobin Bedside 10.2 g/dL (14.0-18.0); Potassium Bedside 2.8 mmol/L (3.3-5.1); SO2 Bedside Calculated 98 %; Sodium Bedside 140 mmol/L (135-145); TCO2 Bedside 32 mmol/L (24-29); pCO2 Bedside 50 mmhg (35-48); pH Bedside 7.39 (7.35-7.45); pO2 Bedside 103 mmhg (83-108)
[2022-05-29] MEDS: HYDROmorphone HCl 1 MG/ML SYRINGE IVPUSH (14:17)
--- NOTE | 2022-05-29 15:53 | MHC.CM.PN ---
per rounds pt to be dcd home when medically stable with hvns
[2022-05-29] MEDS: HYDROmorphone HCl 0.5 MG/0.5 ML SYRINGE IVPUSH ×4 (17:34→23:43)
[2022-05-29] MEDS: rOPINIRole HCL 2 MG TABLET 12 MG PO (19:39)
[2022-05-29] MEDS: Donepezil HCl 10 MG TABLET PO (19:40)
[2022-05-29] MEDS: TiZANidine HCL 4 MG TABLET PO (19:52)
[2022-05-29] MEDS: busPIRone HCl 10 MG TABLET PO (19:52)
[2022-05-29] MEDS: Baclofen 20 MG TABLET PO (19:52)
[2022-05-29] MEDS: traZODone HCL 100 MG TABLET 300 MG PO (23:43)
[2022-05-30] VITALS (7 sets, daily range): BP systolic 145–149; BP diastolic 67–72; PULSE 79–91; RESP 15–20; TEMP 36.2–37; O2SAT 95–98
[2022-05-30] MEDS: KCl 20 mEq in 0.9 % Sodium ChL 20 MEQ/1,000 ML IV.SOLN 80 MEQ IVCONT ×2 (01:49→18:46)
[2022-05-30] MEDS: HYDROmorphone HCl 0.5 MG/0.5 ML SYRINGE IVPUSH ×4 (01:50→08:08)
[2022-05-30] MEDS: Acetaminophen 1,000 MG/100 ML PIGGYBACK 400 MG IV ×4 (03:25→22:20)
[2022-05-30] MEDS: Heparin Sodium,Porcine 5,000 UNIT/ML VIAL 5000 UNIT SUBCUT ×2 (03:26→17:02)
[2022-05-30] MEDS: Levothyroxine Sodium 50 MCG TABLET PO (05:58)
[2022-05-30] MEDS: Omeprazole 20 MG CAPSULE.DR PO (05:58)
[2022-05-30 06:08] LABS: Basophils Absolute Auto 0.1 X10*3/uL (0.0-0.2); Basophils Percent Auto 0.4 % (0-2); Eosinophils Absolute Auto 0.1 X10*3/uL (0.0-0.4); Eosinophils Percent Auto 0.2 % (0-4); Hematocrit 34.2 % (42.0-52.0); Hemoglobin 10.9 g/dl (14.0-18.0); Imm Gran Abs Auto 0.56 X10*3/uL (0.00-0.03); Imm Gran Pct Auto 2.2 % (0.0-0.4); Lymphocytes Absolute Auto 0.9 X10*3/uL (1.2-4.9); Lymphocytes Percent Auto 3.4 % (20-40); MANUAL DIFF FLAG SCAN; Mean Corpuscular HGB Conc 31.9 g/dl (31.0-36.0); Mean Corpuscular Hemoglobin 32.1 pg (27.0-33.0); Mean Corpuscular Volume 100.6 fL (80.0-98.0); Mean Platelet Volume 8.7 fL (9.4-12.4); Monocytes Absolute Auto 1.6 X10*3/uL (0.1-1.2); Monocytes Percent Auto 6.3 % (2-11); Neutrophils Absolute Auto 22.2 x10*3/uL (2.0-8.3); Neutrophils Percent Auto 87.5 % (45-73); Platelet Count 644 X10*3/uL (160-400); Red Cell Distribution Width 15.2 % (11.0-16.0); SCAN SMEAR FLAG 1; White Blood Count 25.4 X10*3/uL (4.8-10.8)
[2022-05-30 06:10] LABS: Anion Gap 14 (12-20); Blood Urea Nitrogen 6 mg/dL (9-16); Calcium 7.5 mg/dL (8.4-10.2); Carbon Dioxide 26 mmol/L (22-29); Chloride 107 mmol/L (96-108); Creatinine Clr Calc Pharmacy 131.6; Estimated Glomerular Filt Rate > 60; Glucose Fasting 106 mg/dL (60-99); Potassium 3.8 mmol/L (3.3-5.1); Sodium 143 mmol/L (135-145)
[2022-05-30 06:11] LABS: Magnesium 1.5 mg/dL (1.6-2.6)
[2022-05-30 06:39] LABS: SLIDE REVIEW VERIFIED
[2022-05-30] MEDS: 0.9 % Sodium Chloride Flush 3 ML SYRINGE IVFLUSH ×2 (08:08→14:30)
[2022-05-30] MEDS: Pregabalin 150 MG CAPSULE PO ×2 (08:14→22:17)
[2022-05-30] MEDS: Memantine HCl 5 MG TABLET PO ×2 (08:14→22:18)
[2022-05-30] MEDS: Tamsulosin HCL 0.4 MG CAPSULE PO ×2 (08:14→22:18)
[2022-05-30] MEDS: dilTIAZem HCL CD 240 MG CAP.ER.DEG PO (08:14)
[2022-05-30] MEDS: DULoxetine HCl 30 MG CAPSULE.DR PO (08:14)
[2022-05-30] MEDS: Carbidopa/Levodopa 25/100 TABLET 1 TAB PO ×4 (08:14→22:18)
[2022-05-30] MEDS: Finasteride 5 MG TABLET PO (08:15)
[2022-05-30] MEDS: levoFLOXacin/D5W 750 MG/150 ML PIGGYBACK 100 MG IV (08:16)
[2022-05-30] MEDS: oxyCODONE HCl Immed Release 5 MG TABLET PO ×3 (08:28→22:17)
--- NOTE | 2022-05-30 08:59 | P.PNGS_ITS ---
Subjective Subjective Date of Service: 05/30/22 Interval history: Continues to c/o severe pain. Received dilaudid 1hr ago and asking for it again. Also on oxycodone for neck pain. Thinks he has passed some flatus from ostomy. Has had small amount of clears. Physical Exam Vital Signs: Vital Signs: Last Vital Signs Temp 98.6 F 05/30/22 07:56 Pulse 84 05/30/22 07:56 Resp 20 05/30/22 07:56 BP 148/67 H 05/30/22 07:56 Pulse Ox 95 05/30/22 07:56 O2 Del Method 05/30/22 07:56 O2 Flow Rate 2 05/30/22 07:56 BMI result Body Mass Index 31.9 Const: General: comfortable, no acute distress and alert Resp: Effort & Inspection: normal respiratory effort Cardio: Rate: regular rate GI: Other: ostomy pink, no output or flatus in appliance Inspection: Yes distended and Yes incision (dressing intact) Palpation (GI): Soft to palpation, Tenderness to palpation present (GI), no guarding and not rigid Percussion: Yes tympanic to percussion Skin: General skin exam: no rashes or lesions noted Objective Data Active Medications Amantadine HCl (Amantadine Hcl 100 Mg Capsule) 100 mg PO Q2D [facility] Last Admin: 05/28/22 16:40 Dose: 100 mg Documented By: DENISHA Baclofen (Baclofen 20 Mg Tablet) 20 mg PO BID PRN PRN Reason: pain (scale score 4-6) Last Admin: 05/29/22 19:52 Dose: 20 mg Documented By: AGUILA Buspirone HCl (Buspirone Hcl 10 Mg Tablet) 10 mg PO BID PRN PRN Reason: Anxiety Last Admin: 05/29/22 19:52 Dose: 10 mg Documented By: AGUILA Carbidopa/Levodopa (Carbidopa/Levodopa 25/100 Tablet) 1 tab PO QID [facility] Last Admin: 05/30/22 08:14 Dose: 1 tab Documented By: NILDA Diltiazem HCl (Diltiazem Hcl Cd 240 Mg Cap.Er.Deg) 240 mg PO DAILY [facility]; Protocol Last Admin: 05/30/22 08:14 Dose: 240 mg Documented By: HO.SOLISPE Donepezil HCl (Donepezil Hcl 10 Mg Tablet) 10 mg PO BEDTIME [facility] Last Admin: 05/29/22 19:40 Dose: 10 mg Documented By: COTEMA Duloxetine HCl (Duloxetine Hcl 30 Mg Capsule.Dr) 30 mg PO DAILY [facility] Last Admin: 05/30/22 08:14 Dose: 30 mg Documented By: DANIELISDAFNE Finasteride (Finasteride 5 Mg Tablet) 5 mg PO DAILY [facility] Last Admin: 05/30/22 08:15 Dose: 5 mg Documented By: NILDA Fluticasone Propionate (Fluticasone Propionate Nasal 16 Gm [place]) 1 spray NOS TRIL-B BID [facility] Last Admin: 05/29/22 19:40 Dose: Not Given Documented By: AGUILA Non-Admin Reason: Patient Refused Heparin Sodium (Porcine) (Heparin Sodium,Porcine 5,000 Unit/Ml Vial) 5,000 unit SUBCUT Q12H [facility] Last Admin: 05/30/22 03:26 Dose: 5,000 unit Documented By: AGUILA Hydromorphone HCl (Hydromorphone Hcl 0.5 Mg/0.5 Ml Syringe) 1 mg IVPUSH Q3H PRN; Protocol PRN Reason: Pain, Severe (Pain Scale 7-10) Acetaminophen (Ofirmev) 1,000 mg in 100 mls @ 400 mls/hr IV Q6H [facility] Last Infusion: 05/30/22 03:49 Dose: 0 mls/hr Documented By: ELLIOTTEMA Potassium Chloride/Sodium Chloride (Kcl 20 Meq In 0.9 % Sodium Chl) 20 meq in 1,000 mls @ 80 mls/hr IVCONT .[id number] [facility] Last Admin: 05/30/22 01:49 Dose: 80 mls/hr Documented By: ELLIOTTEMA Levofloxacin (Levaquin) 750 mg in 150 mls @ 100 mls/hr IV Q48H [facility] Last Admin: 05/30/22 08:16 Dose: 100 mls/hr Documented By: NILDA Magnesium Sulfate (Magnesium Sulfate/H2o) 2 gm in 50 mls @ 25 mls/hr IV ONCE ONE Stop: 05/30/22 09:51 Levothyroxine Sodium (Levothyroxine Sodium 50 Mcg Tablet) 50 mcg PO DAILY@0600 [facility] Last Admin: 05/30/22 05:58 Dose: 50 mcg Documented By: AGUILA Lidocaine (Lidocaine 4 % Patch Adh..Patch) 1 patch TRANSDERMA DAILY [facility] Last Admin: 05/29/22 11:29 Dose: Not Given Documented By: LISA Non-Admin Reason: Patient Refused Magnesium Hydroxide (Milk Of Magnesia 30 Ml Oral.Susp) 30 ml PO DAILY PRN PRN Reason: Constipation Magnesium Oxide (Magnesium Oxide 400 Mg Tablet) 400 mg PO DAILY [facility] Memantine (Memantine Hcl 5 Mg Tablet) 5 mg PO BID [facility] Last Admin: 05/30/22 08:14 Dose: 5 mg Documented By: NILDA Omeprazole (Omeprazole 20 Mg Capsule.Dr) 20 mg PO DAILY@0630 [facility] Last Admin: 05/30/22 05:58 Dose: 20 mg Documented By: AGUILA Oxycodone HCl (Oxycodone Hcl Immed Release 5 Mg Tablet) 5 mg PO Q4H PRN PRN Reason: Pain, Mild (Pain Scale 1-3) Last Admin: 05/30/22 08:28 Dose: 5 mg Documented By: NILDA Pharmacy Consult (Consult Rx Perform Med Rec) 1 each MISCELLANE ONCE PRN PRN Reason: Consult order Pregabalin (Pregabalin 150 Mg Capsule) 150 mg PO BID [facility] Last Admin: 05/30/22 08:14 Dose: 150 mg Documented By: NILDA Prochlorperazine Edisylate (Prochlorperazine Edisylate 10 Mg/2 Ml Vial) 5 mg IVPUSH Q6H PRN PRN Reason: Nausea and Vomiting Last Admin: 05/27/22 19:15 Dose: 5 mg Documented By: KRISTA Ropinirole HCl (Ropinirole Hcl 2 Mg Tablet) 6 mg PO DAILY@1200 [facility] Last Admin: 05/29/22 11:30 Dose: 6 mg Documented By: LISA Ropinirole HCl (Ropinirole Hcl 2 Mg Tablet) 12 mg PO BEDTIME [facility] Last Admin: 05/29/22 19:39 Dose: 12 mg Documented By: AGUILA Sodium Chloride (0.9 % Sodium Chloride Flush 3 Ml Syringe) 3 ml IVFLUSH QSHIFT [facility] Last Admin: 05/30/22 08:08 Dose: 3 ml Documented By: NILDA Tamsulosin HCl (Tamsulosin Hcl 0.4 Mg Capsule) 0.4 mg PO BID [facility] Last Admin: 05/30/22 08:14 Dose: 0.4 mg Documented By: NILDA Tizanidine HCl (Tizanidine Hcl 4 Mg Tablet) 4 mg PO DAILY PRN PRN Reason: muscle spasticity Last Admin: 05/29/22 19:52 Dose: 4 mg Documented By: AGUILA Trazodone HCl (Trazodone Hcl 100 Mg Tablet) 300 mg PO BEDTIME PRN PRN Reason: insomnia Last Admin: 05/29/22 23:43 Dose: 300 mg Documented By: AGUILA Labs 05/30/22 05:35 05/30/22 05:35 Labs: Laboratory Results - last 24 hr 05/29/22 05/29/22 05/29/22 08:12 10:24 10:24 POC Hgb (Calc) 10.2 L POC Hct 30 L MCV 98.4 H MCH 31.0 MCHC 31.5 RDW 15.0 Plt Count 581 H MPV 8.2 L Immature Gran % (Auto) Neut % (Auto) Lymph % (Auto) [place] % (Auto) Eos % (Auto) Baso % (Auto) Lymph # (Auto) [place] # (Auto) Eos # (Auto) Baso # (Auto) Abs Immat Gran (auto) Absolute Neuts (auto) Absolute Nucleated RBC 0.000 Nucleated RBC % (auto) 0.0 Smear Tech's Comments POC Std Base Excess 5 H POC O2 Sat (Calc) 98 POC ABG pO2 103 POC ABG Total CO2 32 H POC Capillary pH 7.39 POC Capillary pCO2 50 H POC Cap HCO3 (Calc) 30 H POC Sodium 140 POC Potassium 2.8 L Anion Gap 13 Estim Creat Clear Calc 131.6 Estimated GFR > 60 POC Glucose 196 H Random Glucose 126 H Fasting Glucose Calcium 7.5 L Phosphorus 3.1 Magnesium 1.2 L* 05/30/22 05/30/22 05/30/22 05:35 05:35 05:35 POC Hgb (Calc) POC Hct MCV 100.6 H MCH 32.1 MCHC 31.9 RDW 15.2 Plt Count 644 H MPV 8.7 L Immature Gran % (Auto) 2.2 H Neut % (Auto) 87.5 H Lymph % (Auto) 3.4 L [place] % (Auto) 6.3 Eos % (Auto) 0.2 Baso % (Auto) 0.4 Lymph # (Auto) 0.9 L [place] # (Auto) 1.6 H Eos # (Auto) 0.1 Baso # (Auto) 0.1 Abs Immat Gran (auto) 0.56 H Absolute Neuts (auto) 22.2 H Absolute Nucleated RBC 0.000 Nucleated RBC % (auto) 0.0 Smear Tech's Comments VERIFIED POC Std Base Excess POC O2 Sat (Calc) POC ABG pO2 POC ABG Total CO2 POC Capillary pH POC Capillary pCO2 POC Cap HCO3 (Calc) POC Sodium POC Potassium Anion Gap 14 Estim Creat Clear Calc 131.6 Estimated GFR > 60 POC Glucose Random Glucose Fasting Glucose 106 H Calcium 7.5 L Phosphorus Magnesium 1.5 L Procedures Date of Service Date of Service: 05/30/22 Progress Note: A&P Assessment and plan (1) Hypokalemia: Status: Acute (2) Hypernatremia: Status: Acute (3) Dehiscence of fascia: Status: Acute (4) Perforated diverticulum of large intestine: Status: Acute Plan 71 year old male admitted for perforated diverticulitis who subsequently underwent nimo procedure almost 2 weeks. He was slowly improving but had WBC count trending up with increasing incisional drainage and was found to have fascial dehiscence confirmed on CT. He required repair of fascial dehiscence, revision of colostomy 05/29/22. He was found to have loosening of the midline fascial closure with herniating small bowel within the subcutaneous tissue. He complains of severe pain this morning despite his analgesics being adjusted multiple times- hx of chronic pain. Currently on dilaudid 0.5mg IV q2 and oxyco done 5mg q4h. Abd is softly distended and tympanitic, ostomy viable appearing without output. Will increase dilaudid to 1mg IVq3h PRN. Continue oxycodone and ofirmev. Will continue clear liquids for now given distention.Await GI function. Encouraged OOB/ambulation. Replace lytes. WBC beginning to downtrend. Hospitalists following. Time Spent With Patient Time: Total time managing care of this patient today ____ minutes. Quality Stroke Does the patient have a stroke diagnosis?: No VTE Prior VTE?: No VTE Risk Level:: Surgical - high VTE Device Contraindication: N/A - Device Ordered VTE Drug Contraindication: N/A - Med Ordered
[2022-05-30] MEDS: Magnesium Sulfate/H2O 2 GM/50 ML PIGGYBACK IV (10:51)
[2022-05-30] MEDS: HYDROmorphone HCl 0.5 MG/0.5 ML SYRINGE 1 MG IVPUSH ×3 (10:55→22:13)
--- NOTE | 2022-05-30 11:06 | P.PNIM_ITS ---
Subjective Subjective Date of Service: 05/30/22 Interval History: seen and examined this morning follow up for medical consultation for increasing leukocytosis patient is awake and alert no significant abdominal pain. denies fever, reports feeling a little cold this morning. no cough, sob, dysuria Review of Systems Review of Systems: Yes all other systems are reviewed and are negative Constitutional Constitutional: Denies chills and Denies fever(s) Cardiovascular Cardiovascular: Denies chest pain, Denies palpitations and Denies dyspnea Respiratory Respiratory: Denies cough and Denies dyspnea Gastrointestinal Gastrointestinal: Denies abdominal pain, Denies nausea and Denies vomiting Genitourinary Genitourinary: Denies dysuria Endocrine Endocrine: Denies palpitations Physical Exam Vital Signs: Vital Signs: Last Vital Signs Temp 98.6 F 05/30/22 07:56 Pulse 84 05/30/22 07:56 Resp 20 05/30/22 07:56 BP 148/67 H 05/30/22 07:56 Pulse Ox 95 05/30/22 07:56 O2 Del Method 05/30/22 07:56 O2 Flow Rate 2 05/30/22 07:56 BMI result Body Mass Index 31.9 Objective Data Active Medications Amantadine HCl (Amantadine Hcl 100 Mg Capsule) 100 mg PO Q2D [facility] Last Admin: 05/28/22 16:40 Dose: 100 mg Documented By: DENISHA Baclofen (Baclofen 20 Mg Tablet) 20 mg PO BID PRN PRN Reason: pain (scale score 4-6) Last Admin: 05/29/22 19:52 Dose: 20 mg Documented By: COTEMA Buspirone HCl (Buspirone Hcl 10 Mg Tablet) 10 mg PO BID PRN PRN Reason: Anxiety Last Admin: 05/29/22 19:52 Dose: 10 mg Documented By: COTVIK Carbidopa/Levodopa (Carbidopa/Levodopa 25/100 Tablet) 1 tab PO QID [facility] Last Admin: 05/30/22 08:14 Dose: 1 tab Documented By: NILDA Diltiazem HCl (Diltiazem Hcl Cd 240 Mg Cap.Er.Deg) 240 mg PO DAILY [facility]; Protocol Last Admin: 05/30/22 08:14 Dose: 240 mg Documented By: NILDA Donepezil HCl (Donepezil Hcl 10 Mg Tablet) 10 mg PO BEDTIME [facility] Last Admin: 05/29/22 19:40 Dose: 10 mg Documented By: AGUILA Duloxetine HCl (Duloxetine Hcl 30 Mg Capsule.) 30 mg PO DAILY [facility] Last Admin: 05/30/22 08:14 Dose: 30 mg Documented By: NILDA Finasteride (Finasteride 5 Mg Tablet) 5 mg PO DAILY [facility] Last Admin: 05/30/22 08:15 Dose: 5 mg Documented By: NILDA Fluticasone Propionate (Fluticasone Propionate Nasal 16 Gm [place]) 1 spray NOSTRIL-B BID [facility] Last Admin: 05/30/22 10:10 Dose: Not Given Documented By: NILDA Non-Admin Reason: Patient Refused Heparin Sodium (Porcine) (Heparin Sodium,Porcine 5,000 Unit/Ml Vial) 5,000 unit SUBCUT Q12H [facility] Last Admin: 05/30/22 03:26 Dose: 5,000 unit Documented By: AGUILA Hydromorphone HCl (Hydromorphone Hcl 0.5 Mg/0.5 Ml Syringe) 1 mg IVPUSH Q3H PRN; Protocol PRN Reason: Pain, Severe (Pain Scale 7-10) Last Admin: 05/30/22 10:55 Dose: 1 mg Documented By: NILDA Acetaminophen (Ofirmev) 1,000 mg in 100 mls @ 400 mls/hr IV Q6H [facility] Last Infusion: 05/30/22 10:52 Dose: 0 mls/hr Documented By: NILDA Potassium Chloride/Sodium Chloride (Kcl 20 Meq In 0.9 % Sodium Chl) 20 meq in 1,000 mls @ 80 mls/hr IVCONT .[id number] [facility] Last Admin: 05/30/22 01:49 Dose: 80 mls/hr Documented By: AGUILA Levofloxacin (Levaquin) 750 mg in 150 mls @ 100 mls/hr IV Q48H [facility] Last Infusion: 05/30/22 10:17 Dose: 0 mls/hr Documented By: NILDA Levothyroxine Sodium (Levothyroxine Sodium 50 Mcg Tablet) 50 mcg PO DAILY@0600 [facility] Last Admin: 05/30/22 05:58 Dose: 50 mcg Documented By: HO.COTEMA Lidocaine (Lidocaine 4 % Patch Adh..Patch) 1 patch TRANSDERMA DAILY [facility] Last Admin: 05/30/22 10:12 Dose: Not Given Documented By: NILDA Non-Admin Reason: Patient Refused Magnesium Hydroxide (Milk Of Magnesia 30 Ml Oral.Susp) 30 ml PO DAILY PRN PRN Reason: Constipation Magnesium Oxide (Magnesium Oxide 400 Mg Tablet) 400 mg PO DAILY [facility] Memantine (Memantine Hcl 5 Mg Tablet) 5 mg PO BID [facility] Last Admin: 05/30/22 08:14 Dose: 5 mg Documented By: NILDA Omeprazole (Omeprazole 20 Mg Capsule.Dr) 20 mg PO DAILY@0630 [facility] Last Admin: 05/30/22 05:58 Dose: 20 mg Documented By: ELLIOTTEMA Oxycodone HCl (Oxycodone Hcl Immed Release 5 Mg Tablet) 5 mg PO Q4H PRN PRN Reason: Pain, Mild (Pain Scale 1-3) Last Admin: 05/30/22 08:28 Dose: 5 mg Documented By: NILDA Pharmacy Consult (Consult Rx Perform Med Rec) 1 each MISCELLANE ONCE PRN PRN Reason: Consult order Pregabalin (Pregabalin 150 Mg Capsule) 150 mg PO BID [facility] Last Admin: 05/30/22 08:14 Dose: 150 mg Documented By: NILDA Prochlorperazine Edisylate (Prochlorperazine Edisylate 10 Mg/2 Ml Vial) 5 mg IVPUSH Q6H PRN PRN Reason: Nausea and Vomiting Last Admin: 05/27/22 19:15 Dose: 5 mg Documented By: KRISTA Ropinirole HCl (Ropinirole Hcl 2 Mg Tablet) 6 mg PO DAILY@1200 [facility] Last Admin: 05/29/22 11:30 Dose: 6 mg Documented By: LISA Ropinirole HCl (Ropinirole Hcl 2 Mg Tablet) 12 mg PO BEDTIME [facility] Last Admin: 05/29/22 19:39 Dose: 12 mg Documented By: ELLIOTTEMA Sodium Chloride (0.9 % Sodium Chloride Flush 3 Ml Syringe) 3 ml IVFLUSH QSHIFT [facility] Last Admin: 05/30/22 08:08 Dose: 3 ml Documented By: NILDA Tamsulosin HCl (Tamsulosin Hcl 0.4 Mg Capsule) 0.4 mg PO BID [facility] Last Admin: 05/30/22 08:14 Dose: 0.4 mg Documented By: NILDA Tizanidine HCl (Tizanidine Hcl 4 Mg Tablet) 4 mg PO DAILY PRN PRN Reason: muscle spasticity Last Admin: 05/29/22 19:52 Dose: 4 mg Documented By: AGUILA Trazodone HCl (Trazodone Hcl 100 Mg Tablet) 300 mg PO BEDTIME PRN PRN Reason: insomnia Last Admin: 05/29/22 23:43 Dose: 300 mg Documented By: AGUILA Labs 05/30/22 05:35 05/30/22 05:35 Labs: Laboratory Results - last 24 hr 05/29/22 05/29/22 05/30/22 08:12 10:24 05:35 POC Hgb (Calc) 10.2 L POC Hct 30 L MCV MCH MCHC RDW Plt Count MPV Immature Gran % (Auto) Neut % (Auto) Lymph % (Auto) [place] % (Auto) Eos % (Auto) Baso % (Auto) Lymph # (Auto) [place] # (Auto) Eos # (Auto) Baso # (Auto) Abs Immat Gran (auto) Absolute Neuts (auto) Absolute Nucleated RBC Nucleated RBC % (auto) Smear Tech's Comments POC Std Base Excess 5 H POC O2 Sat (Calc) 98 POC ABG pO2 103 POC ABG Total CO2 32 H POC Capillary pH 7.39 POC Capillary pCO2 50 H POC Cap HCO3 (Calc) 30 H POC Sodium 140 POC Potassium 2.8 L Anion Gap 13 Estim Creat Clear Calc 131.6 Estimated GFR > 60 POC Glucose 196 H Random Glucose 126 H Fasting Glucose Calcium 7.5 L Phosphorus 3.1 Magnesium 1.2 L* 1.5 L 05/30/22 05/30/22 05:35 05:35 POC Hgb (Calc) POC Hct MCV 100.6 H MCH 32.1 MCHC 31.9 RDW 15.2 Plt Count 644 H MPV 8.7 L Immature Gran % (Auto) 2.2 H Neut % (Auto) 87.5 H Lymph % (Auto) 3.4 L [place] % (Auto) 6.3 Eos % (Auto) 0.2 Baso % (Auto) 0.4 Lymph # (Auto) 0.9 L [place] # (Auto) 1.6 H Eos # (Auto) 0.1 Baso # (Auto) 0.1 Abs Immat Gran (auto) 0.56 H Absolute Neuts (auto) 22.2 H Absolute Nucleated RBC 0.000 Nucleated RBC % (auto) 0.0 Smear Tech's Comments VERIFIED POC Std Base Excess POC O2 Sat (Calc) POC ABG pO2 POC ABG Total CO2 POC Capillary pH POC Capillary pCO2 POC Cap HCO3 (Calc) POC Sodium POC Potassium Anion Gap 14 Estim Creat Clear Calc 131.6 Estimated GFR > 60 POC Glucose Random Glucose Fasting Glucose 106 H Calcium 7.5 L Phosphorus Magnesium Assessment and Plan (1) Perforated diverticulum of large intestine: Status: Acute (2) Leukocytosis: Status: Acute Plan This is a 71 year old male with history of Parkinson's disease, chronic back pain, HTN, BPH, hypothyroidism, recent admission for PNA and fusobacterium bacteremia admitted 05/17 with abdominal pain found to have perforated diverticulitis with intraabdominal abscess s/p Mlila procedure course complicated by LILIANA, hyperactive delirium which have since resolved now with increasing leukocytosis. Leukocytosis wbc trending down repeat abdominal CT 05/28/22 showing new fluid collection along incisional hernia and persistent inflammation around descending colostomy with abdominal wall fluid collection Status post repair of fascial dehiscence and revision of ostomy 05/29/22 blood cx pending hypomagnesemia replete mag oral daily mag follow closely Milla procedure for perf diverticulitis 05/18/22 hypernatremia resolved LILIANA resolved toxic metabolic encephalopathy resolved anemia chronic, H/H at baseline dvt ppx - heparin attending - dr. cha Thank you for allowing us to participate in the care of this patient. We will follow along with you. Will sign off Time Spent With Patient Time: Total time managing care of this patient today ____ minutes. Quality Stroke Does the patient have a stroke diagnosis?: No VTE Prior VTE?: No VTE Risk Level:: Surgical - high VTE Device Contraindication: N/A - Device Ordered VTE Drug Contraindication: N/A - Med Ordered
--- NOTE | 2022-05-30 13:44 | HO.POSTANES ---
Post Anesthesia Evaluation Post Anesthesia Evaluation Vital Signs: Vital Signs Temp Pulse Resp BP Pulse Ox O2 Del Method O2 Flow Rate 05/30/22 07:56 98.6 F 84 20 148/67 H 95 Nasal Cannula 2 05/30/22 06:00 19 05/30/22 03:51 19 05/30/22 01:50 19 Anesthesia: General Endotracheal-GETA Mental Status: Awake Pain Control: Satisfactory (severe pain overnight) Nausea/Vomiting: Mild Hydration: Adequate Anesthesia-Related Issues: No Anes. Related Issues
[2022-05-30] MEDS: rOPINIRole HCL 2 MG TABLET 6 MG PO (14:19)
[2022-05-30] MEDS: amantadine HCL 100 MG CAPSULE PO (17:03)
[2022-05-30] MEDS: traZODone HCL 100 MG TABLET 300 MG PO (22:17)
[2022-05-30] MEDS: Donepezil HCl 10 MG TABLET PO (22:18)
[2022-05-30] MEDS: rOPINIRole HCL 2 MG TABLET 12 MG PO (22:20)
[2022-05-31] VITALS (7 sets, daily range): BP systolic 136–154; BP diastolic 64–70; PULSE 82–93; RESP 16–18; TEMP 36.4–37.2; O2SAT 90–98
[2022-05-31] MEDS: HYDROmorphone HCl 0.5 MG/0.5 ML SYRINGE 1 MG IVPUSH ×6 (01:25→21:05)
[2022-05-31] MEDS: Heparin Sodium,Porcine 5,000 UNIT/ML VIAL 5000 UNIT SUBCUT ×2 (03:31→16:46)
[2022-05-31] MEDS: Levothyroxine Sodium 50 MCG TABLET PO (06:18)
[2022-05-31] MEDS: Omeprazole 20 MG CAPSULE.DR PO (06:18)
[2022-05-31 06:55] LABS: Anion Gap 13 (12-20); Blood Urea Nitrogen 6 mg/dL (9-16); Calcium 7.7 mg/dL (8.4-10.2); Carbon Dioxide 30 mmol/L (22-29); Chloride 106 mmol/L (96-108); Creatinine Clr Calc Pharmacy 139.2; Estimated Glomerular Filt Rate > 60; Glucose Random 92 mg/dL (60-115); Magnesium 1.6 mg/dL (1.6-2.6); Sodium 145 mmol/L (135-145)
[2022-05-31] MEDS: 0.9 % Sodium Chloride Flush 3 ML SYRINGE IVFLUSH (07:57)
[2022-05-31] MEDS: oxyCODONE HCl Immed Release 5 MG TABLET PO ×4 (07:58→23:56)
[2022-05-31] MEDS: DULoxetine HCl 30 MG CAPSULE.DR PO (07:58)
[2022-05-31] MEDS: dilTIAZem HCL CD 240 MG CAP.ER.DEG PO (07:58)
[2022-05-31] MEDS: Pregabalin 150 MG CAPSULE PO ×2 (07:58→21:04)
[2022-05-31] MEDS: Tamsulosin HCL 0.4 MG CAPSULE PO ×2 (07:58→21:03)
[2022-05-31] MEDS: Fluticasone Propionate Nasal 16 GM SPRAY 1 SPRAY NOSTRIL-B (07:59)
[2022-05-31] MEDS: Magnesium Oxide 400 MG TABLET PO (07:59)
[2022-05-31] MEDS: Finasteride 5 MG TABLET PO (07:59)
[2022-05-31] MEDS: Carbidopa/Levodopa 25/100 TABLET 1 TAB PO ×4 (07:59→21:04)
[2022-05-31] MEDS: Memantine HCl 5 MG TABLET PO ×2 (07:59→21:04)
--- NOTE | 2022-05-31 09:18 | PM.PNGS ---
Subjective Subjective Date of Service: 05/31/22 Interval history: Feels much better with adjustment in analgesics. Tolerating clear liquids without nausea. Reports flatus from ostomy. Nervous about getting OOB. Physical Exam Vital Signs: Vital Signs: Last Vital Signs Temp 98.9 F 05/31/22 07:15 Pulse 87 05/31/22 07:15 Resp 17 05/31/22 07:15 BP 141/67 H 05/31/22 07:15 Pulse Ox 98 05/31/22 07:15 O2 Del Method 05/31/22 07:15 O2 Flow Rate 2 05/31/22 07:15 BMI result Body Mass Index 31.9 Const: General: comfortable, no acute distress and alert Orientation/consciousness: patient oriented x3 Resp: Effort & Inspection: normal respiratory effort GI: Other: ostomy pink, no output in appliance Inspection: Yes distended (softly, decreasing) and Yes incision (some wound flavia removed, scant drainage, clean) Palpation (GI): Soft to palpation, Tenderness to palpation present (GI), no guarding and not rigid Skin: General skin exam: no rashes or lesions noted Neuro: General: patient oriented x3 Objective Data Active Medications Amantadine HCl (Amantadine Hcl 100 Mg Capsule) 100 mg PO Q2D [facility] Last Admin: 05/30/22 17:03 Dose: 100 mg Documented By: NILDA Baclofen (Baclofen 20 Mg Tablet) 20 mg PO BID PRN PRN Reason: pain (scale score 4-6) Last Admin: 05/29/22 19:52 Dose: 20 mg Documented By: COTEMA Buspirone HCl (Buspirone Hcl 10 Mg Tablet) 10 mg PO BID PRN PRN Reason: Anxiety Last Admin: 05/29/22 19:52 Dose: 10 mg Documented By: COTEMA Carbidopa/Levodopa (Carbidopa/Levodopa 25/100 Tablet) 1 tab PO QID [facility] Last Admin: 05/31/22 07:59 Dose: 1 tab Documented By: ESTEFANIA Diltiazem HCl (Diltiazem Hcl Cd 240 Mg Cap.Er.Deg) 240 mg PO DAILY [facility]; Protocol Last Admin: 05/31/22 07:58 Dose: 240 mg Documented By: ESTEFANIA Donepezil HCl (Donepezil Hcl 10 Mg Tablet) 10 mg PO BEDTIME [facility] Last Admin: 05/30/22 22:18 Dose: 10 mg Documented By: NIKHIL Duloxetine HCl (Duloxetine Hcl 30 Mg Capsule.Dr) 30 mg PO DAILY [facility] Last Admin: 05/31/22 07:58 Dose: 30 mg Documented By: ESTEFANIA Finasteride (Finasteride 5 Mg Tablet) 5 mg PO DAILY [facility] Last Admin: 05/31/22 07:59 Dose: 5 mg Documented By: ESTEFANIA Fluticasone Propionate (Fluticasone Propionate Nasal 16 Gm [place]) 1 spray NOSTRIL-B BID [facility] Last Admin: 05/31/22 07:59 Dose: 1 spray Documented By: ESTEFANIA Heparin Sodium (Porcine) (Heparin Sodium,Porcine 5,000 Unit/Ml Vial) 5,000 unit SUBCUT Q12H [facility] Last Admin: 05/31/22 03:31 Dose: 5,000 unit Documented By: NIKHIL Hydromorphone HCl (Hydromorphone Hcl 0.5 Mg/0.5 Ml Syringe) 1 mg IVPUSH Q3H PRN; Protocol PRN Reason: Pain, Severe (Pain Scale 7-10) Last Admin: 05/31/22 06:19 Dose: 1 mg Documented By: NIKHIL Acetaminophen (Ofirmev) 1,000 mg in 100 mls @ 400 mls/hr IV Q6H [facility] Last Admin: 05/31/22 03:31 Dose: Not Given Documented By: NIKHIL Non-Admin Reason: exceed maximum dose Potassium Chloride/Sodium Chloride (Kcl 20 Meq In 0.9 % Sodium Chl) 20 meq in 1,000 mls @ 80 mls/hr IVCONT .[id number] [facility] Last Infusion: 05/31/22 08:08 Dose: 0 mls/hr Documented By: ESTEFANIA Levofloxacin (Levaquin) 750 mg in 150 mls @ 100 mls/hr IV Q48H [facility] Last Infusion: 05/30/22 10:17 Dose: 0 mls/hr Documented By: SOLISPE Levothyroxine Sodium (Levothyroxine Sodium 50 Mcg Tablet) 50 mcg PO DAILY@0600 [facility] Last Admin: 05/31/22 06:18 Dose: 50 mcg Documented By: NIKHIL Lidocaine (Lidocaine 4 % Patch Adh..Patch) 1 patch TRANSDERMA DAILY [facility] Last Admin: 05/31/22 08:00 Dose: Not Given Documented By: ESTEFANIA Non-Admin Reason: Patient Refused Magnesium Hydroxide (Milk Of Magnesia 30 Ml Oral.Susp) 30 ml PO DAILY PRN PRN Reason: Constipation Magnesium Oxide (Magnesium Oxide 400 Mg Tablet) 400 mg PO DAILY [facility] Last Admin: 05/31/22 07:59 Dose: 400 mg Documented By: ESTEFANIA Memantine (Memantine Hcl 5 Mg Tablet) 5 mg PO BID [facility] Last Admin: 05/31/22 07:59 Dose: 5 mg Documented By: ESTEFANIA Omeprazole (Omeprazole 20 Mg Capsule.Dr) 20 mg PO DAILY@0630 [facility] Last Admin: 05/31/22 06:18 Dose: 20 mg Documented By: NIKHIL Oxycodone HCl (Oxycodone Hcl Immed Release 5 Mg Tablet) 5 mg PO Q4H PRN PRN Reason: Pain, Mild (Pain Scale 1-3) Last Admin: 05/31/22 07:58 Dose: 5 mg Documented By: ESTEFANIA Pharmacy Consult (Consult Rx Perform Med Rec) 1 each MISCELLANE ONCE PRN PRN Reason: Consult order Pregabalin (Pregabalin 150 Mg Capsule) 150 mg PO BID [facility] Last Admin: 05/31/22 07:58 Dose: 150 mg Documented By: ESTEFANIA Prochlorperazine Edisylate (Prochlorperazine Edisylate 10 Mg/2 Ml Vial) 5 mg IVPUSH Q6H PRN PRN Reason: Nausea and Vomiting Last Admin: 05/27/22 19:15 Dose: 5 mg Documented By: KRISTA Ropinirole HCl (Ropinirole Hcl 2 Mg Tablet) 6 mg PO DAILY@1200 [facility] Last Admin: 05/30/22 14:19 Dose: 6 mg Documented By: SOLISPE Ropinirole HCl (Ropinirole Hcl 2 Mg Tablet) 12 mg PO BEDTIME [facility] Last Admin: 05/30/22 22:20 Dose: 12 mg Documented By: NIKHIL Sodium Chloride (0.9 % Sodium Chloride Flush 3 Ml Syringe) 3 ml IVFLUSH QSHIFT [facility] Last Admin: 05/31/22 07:57 Dose: 3 ml Documented By: ESTEFANIA Tamsulosin HCl (Tamsulosin Hcl 0.4 Mg Capsule) 0.4 mg PO BID [facility] Last Admin: 05/31/22 07:58 Dose: 0.4 mg Documented By: ESTEFANIA Tizanidine HCl (Tizanidine Hcl 4 Mg Tablet) 4 mg PO DAILY PRN PRN Reason: muscle spasticity Last Admin: 05/29/22 19:52 Dose: 4 mg Documented By: COTEMA Trazodone HCl (Trazodone Hcl 100 Mg Tablet) 300 mg PO BEDTIME PRN PRN Reason: insomnia Last Admin: 05/30/22 22:17 Dose: 300 mg Documented By: CRAWFS Labs 05/30/22 05:35 05/31/22 06:12 Labs: Laboratory Results - last 24 hr 05/31/22 05/31/22 06:12 06:12 Anion Gap 13 Estim Creat Clear Calc 139.2 Estimated GFR > 60 Random Glucose 92 Calcium 7.7 L Magnesium 1.6 Cancelled Microbiology Microbiology Results: Microbiology 05/29/22 13:26 Blood Culture - Preliminary Blood - Venous No growth after 24 hours. 05/29/22 13:26 Blood Culture - Preliminary Blood - Venous No growth after 24 hours. Procedures Date of Service Date of Service: 05/31/22 Progress Note: A&P Assessment and plan (1) Dehiscence of fascia: Status: Acute (2) Perforated diverticulum of large intestine: Status: Acute Plan 71 year old male admitted for perforated diverticulitis who subsequently underwent nimo procedure almost 2 weeks. He was slowly improving but had WBC count trending up with increasing incisional drainage and was found to have fascial dehiscence confirmed on CT. He required repair of fascial dehiscence, revision of colostomy 05/29/22. He was found to have loosening of the midline fascial closure with herniating small bowel within the subcutaneous tissue. Doing better today in regards to pain control. VSS. Abd is softly distended but improved, incision clean and some wound flavia removed, ostomy viable appearing. Continue current pain regimen. Will advance to solid diet. Apply abd binder. Encouraged OOB/ambulation today, PT. Lytes improved. Repeat CBC tomorrow. Dc cason. Decrease IVF, can dc once PO intake adequate. Anticipate dc over weekend if remains stable, once pain tolerable on PO analgesics and activity increased. Hospitalists following. Time Spent With Patient Time: Total time managing care of this patient today ____ minutes. Quality Stroke Does the patient have a stroke diagnosis?: No VTE Prior VTE?: No VTE Risk Level:: Surgical - high VTE Device Contraindication: N/A - Device Ordered VTE Drug Contraindication: N/A - Med Ordered
[2022-05-31] MEDS: Acetaminophen 1,000 MG/100 ML PIGGYBACK 400 MG IV ×2 (12:15→21:04)
[2022-05-31] MEDS: rOPINIRole HCL 2 MG TABLET 6 MG PO (12:16)
[2022-05-31] MEDS: KCl 20 mEq in 0.9 % Sodium ChL 20 MEQ/1,000 ML IV.SOLN 60 MEQ IVCONT (12:58)
[2022-05-31] MEDS: traZODone HCL 100 MG TABLET 300 MG PO (21:03)
[2022-05-31] MEDS: Famotidine/PF 20 MG/2 ML VIAL IVPUSH (21:03)
[2022-05-31] MEDS: rOPINIRole HCL 2 MG TABLET 12 MG PO (21:03)
[2022-05-31] MEDS: Donepezil HCl 10 MG TABLET PO (21:04)
[2022-06-01] MEDS: Acetaminophen 1,000 MG/100 ML PIGGYBACK 400 MG IV ×2 (03:11→11:40)
[2022-06-01 03:12] VITALS: BP 130/63; PULSE 78; RESP 18; TEMP 36.8; O2SAT 95
[2022-06-01] MEDS: Heparin Sodium,Porcine 5,000 UNIT/ML VIAL 5000 UNIT SUBCUT ×2 (03:12→14:32)
[2022-06-01] MEDS: oxyCODONE HCl Immed Release 5 MG TABLET PO ×4 (05:42→19:21)
[2022-06-01] MEDS: Levothyroxine Sodium 50 MCG TABLET PO (05:42)
[2022-06-01] MEDS: Omeprazole 20 MG CAPSULE.DR PO (05:42)
[2022-06-01] MEDS: KCl 20 mEq in 0.9 % Sodium ChL 20 MEQ/1,000 ML IV.SOLN 60 MEQ IVCONT ×2 (05:42→22:29)
[2022-06-01 06:52] LABS: Magnesium 1.5 mg/dL (1.6-2.6)
[2022-06-01 08:00] VITALS: BP 145/70; PULSE 90; RESP 18; TEMP 37.3; O2SAT 94
[2022-06-01 08:13] LABS: Basophils Absolute Auto 0.1 X10*3/uL (0.0-0.2); Basophils Percent Auto 0.7 % (0-2); Eosinophils Absolute Auto 0.2 X10*3/uL (0.0-0.4); Eosinophils Percent Auto 1.8 % (0-4); Hematocrit 31.8 % (42.0-52.0); Hemoglobin 9.8 g/dl (14.0-18.0); Imm Gran Abs Auto 0.12 X10*3/uL (0.00-0.03); Imm Gran Pct Auto 1.2 % (0.0-0.4); Lymphocytes Absolute Auto 0.9 X10*3/uL (1.2-4.9); Lymphocytes Percent Auto 8.9 % (20-40); Mean Corpuscular HGB Conc 30.8 g/dl (31.0-36.0); Mean Corpuscular Hemoglobin 30.9 pg (27.0-33.0); Mean Corpuscular Volume 100.3 fL (80.0-98.0); Mean Platelet Volume 8.9 fL (9.4-12.4); Monocytes Absolute Auto 0.7 X10*3/uL (0.1-1.2); Monocytes Percent Auto 7.1 % (2-11); Neutrophils Absolute Auto 8.4 x10*3/uL (2.0-8.3); Neutrophils Percent Auto 80.3 % (45-73); Platelet Count 418 X10*3/uL (160-400); Red Blood Count 3.17 X10*6/uL (4.60-5.80); Red Cell Distribution Width 15.6 % (11.0-16.0); White Blood Count 10.4 X10*3/uL (4.8-10.8)
[2022-06-01 08:18] LABS: MANUAL DIFF FLAG NO
--- NOTE | 2022-06-01 08:22 | P.PNGS_ITS ---
Subjective Subjective Date of Service: 06/01/22 Interval history: Still having a lot pain. Getting OOB and ambulating. Binder helping. Tolerated small amount of food yesterday. Physical Exam Vital Signs: Vital Signs: Last Vital Signs Temp 98.2 F 06/01/22 03:12 Pulse 78 06/01/22 03:12 Resp 18 06/01/22 03:12 BP 130/63 06/01/22 03:12 Pulse Ox 95 06/01/22 03:12 O2 Del Method 06/01/22 03:12 O2 Flow Rate 2 06/01/22 03:12 BMI result Body Mass Index 31.9 Const: General: comfortable, no acute distress and alert Orientation/consciousness: patient oriented x3 Resp: Effort & Inspection: normal respiratory effort GI: Other: ostomy pink Inspection: No distended and Yes incision (no erythema, all wound flavia removed, retention sutures in place) Palpation (GI): Soft to palpation, Tenderness to palpation present (GI), no guarding and not rigid Skin: General skin exam: no rashes or lesions noted Neuro: General: patient oriented x3 and moves all extremities Objective Data Active Medications Amantadine HCl (Amantadine Hcl 100 Mg Capsule) 100 mg PO Q2D [facility] Last Admin: 05/30/22 17:03 Dose: 100 mg Documented By: SOLISPE Baclofen (Baclofen 20 Mg Tablet) 20 mg PO BID PRN PRN Reason: pain (scale score 4-6) Last Admin: 05/29/22 19:52 Dose: 20 mg Documented By: COTEMA Buspirone HCl (Buspirone Hcl 10 Mg Tablet) 10 mg PO BID PRN PRN Reason: Anxiety Last Admin: 05/29/22 19:52 Dose: 10 mg Documented By: COTVIK Carbidopa/Levodopa (Carbidopa/Levodopa 25/100 Tablet) 1 tab PO QID [facility] Last Admin: 05/31/22 21:04 Dose: 1 tab Documented By: J LUIS Diltiazem HCl (Diltiazem Hcl Cd 240 Mg Cap.Er.Deg) 240 mg PO DAILY [facility]; Protocol Last Admin: 05/31/22 07:58 Dose: 240 mg Documented By: CTORRZ Donepezil HCl (Donepezil Hcl 10 Mg Tablet) 10 mg PO BEDTIME [facility] Last Admin: 05/31/22 21:04 Dose: 10 mg Documented By: J LUIS Duloxetine HCl (Duloxetine Hcl 30 Mg Capsule.Dr) 30 mg PO DAILY [facility] Last Admin: 05/31/22 07:58 Dose: 30 mg Documented By: ESTEFANIA Finasteride (Finasteride 5 Mg Tablet) 5 mg PO DAILY [facility] Last Admin: 05/31/22 07:59 Dose: 5 mg Documented By: ESTEFANIA Fluticasone Propionate (Fluticasone Propionate Nasal 16 Gm [place]) 1 spray NOSTRIL-B BID [facility] Last Admin: 05/31/22 21:28 Dose: Not Given Documented By: J LUIS Non-Admin Reason: Patient Refused Heparin Sodium (Porcine) (Heparin Sodium,Porcine 5,000 Unit/Ml Vial) 5,000 unit SUBCUT Q12H [facility] Last Admin: 06/01/22 03:12 Dose: 5,000 unit Documented By: KAYCEE Hydromorphone HCl (Hydromorphone Hcl 0.5 Mg/0.5 Ml Syringe) 1 mg IVPUSH Q3H PRN; Protocol PRN Reason: Pain, Severe (Pain Scale 7-10) Last Admin: 05/31/22 21:05 Dose: 1 mg Documented By: J LUIS Acetaminophen (Ofirmev) 1,000 mg in 100 mls @ 400 mls/hr IV Q6H [facility] Last Infusion: 06/01/22 03:26 Dose: 0 mls/hr Documented By: KAYCEE Potassium Chloride/Sodium Chloride (Kcl 20 Meq In 0.9 % Sodium Chl) 20 meq in 1,000 mls @ 60 mls/hr IVCONT .[id number] [facility] Last Admin: 06/01/22 05:42 Dose: 60 mls/hr Documented By: KAYCEE Levofloxacin (Levaquin) 750 mg in 150 mls @ 100 mls/hr IV Q48H [facility] Last Infusion: 05/30/22 10:17 Dose: 0 mls/hr Documented By: NILDA Levothyroxine Sodium (Levothyroxine Sodium 50 Mcg Tablet) 50 mcg PO DAILY@0600 [facility] Last Admin: 06/01/22 05:42 Dose: 50 mcg Documented By: KAYCEE Lidocaine (Lidocaine 4 % Patch Adh..Patch) 1 patch TRANSDERMA DAILY [facility] Last Admin: 05/31/22 08:00 Dose: Not Given Documented By: ESTEFANIA Non-Admin Reason: Patient Refused Magnesium Hydroxide (Milk Of Magnesia 30 Ml Oral.Susp) 30 ml PO DAILY PRN PRN Reason: Constipation Magnesium Oxide (Magnesium Oxide 400 Mg Tablet) 400 mg PO DAILY [facility] Last Admin: 05/31/22 07:59 Dose: 400 mg Documented By: ESTEFANIA Memantine (Memantine Hcl 5 Mg Tablet) 5 mg PO BID [facility] Last Admin: 05/31/22 21:04 Dose: 5 mg Documented By: J LUIS Omeprazole (Omeprazole 20 Mg Capsule.Dr) 20 mg PO DAILY@0630 [facility] Last Admin: 06/01/22 05:42 Dose: 20 mg Documented By: KAYCEE Oxycodone HCl (Oxycodone Hcl Immed Release 5 Mg Tablet) 5 mg PO Q4H PRN PRN Reason: Pain, Mild (Pain Scale 1-3) Last Admin: 06/01/22 05:42 Dose: 5 mg Documented By: KAYCEE Pharmacy Consult (Consult Rx Perform Med Rec) 1 each MISCELLANE ONCE PRN PRN Reason: Consult order Pregabalin (Pregabalin 150 Mg Capsule) 150 mg PO BID [facility] Last Admin: 05/31/22 21:04 Dose: 150 mg Documented By: J LUIS Prochlorperazine Edisylate (Prochlorperazine Edisylate 10 Mg/2 Ml Vial) 5 mg IVPUSH Q6H PRN PRN Reason: Nausea and Vomiting Last Admin: 05/27/22 19:15 Dose: 5 mg Documented By: KRISTA Ropinirole HCl (Ropinirole Hcl 2 Mg Tablet) 6 mg PO DAILY@1200 [facility] Last Admin: 05/31/22 12:16 Dose: 6 mg Documented By: ESTEFANIA Ropinirole HCl (Ropinirole Hcl 2 Mg Tablet) 12 mg PO BEDTIME [facility] Last Admin: 05/31/22 21:03 Dose: 12 mg Documented By: J LUIS Sodium Chloride (0.9 % Sodium Chloride Flush 3 Ml Syringe) 3 ml IVFLUSH QSHIFT [facility] Last Admin: 05/31/22 23:40 Dose: Not Given Documented By: KAYCEE Non-Admin Reason: IV Running Tamsulosin HCl (Tamsulosin Hcl 0.4 Mg Capsule) 0.4 mg PO BID [facility] Last Admin: 05/31/22 21:03 Dose: 0.4 mg Documented By: J LUIS Tizanidine HCl (Tizanidine Hcl 4 Mg Tablet) 4 mg PO DAILY PRN PRN Reason: muscle spasticity Last Admin: 05/29/22 19:52 Dose: 4 mg Documented By: COTEMA Trazodone HCl (Trazodone Hcl 100 Mg Tablet) 300 mg PO BEDTIME PRN PRN Reason: insomnia Last Admin: 05/31/22 21:03 Dose: 300 mg Documented By: J LUIS Labs 06/01/22 08:00 05/31/22 06:12 Labs: Laboratory Results - last 24 hr 06/01/22 06/01/22 05:34 08:00 MCV 100.3 H MCH 30.9 MCHC 30.8 L RDW 15.6 Plt Count 418 H D MPV 8.9 L Immature Gran % (Auto) 1.2 H Neut % (Auto) 80.3 H Lymph % (Auto) 8.9 L Miller % (Auto) 7.1 Eos % (Auto) 1.8 Baso % (Auto) 0.7 Lymph # (Auto) 0.9 L Miller # (Auto) 0.7 Eos # (Auto) 0.2 Baso # (Auto) 0.1 Abs Immat Gran (auto) 0.12 H Absolute Neuts (auto) 8.4 H Absolute Nucleated RBC 0.000 Nucleated RBC % (auto) 0.0 Magnesium 1.5 L Microbiology Microbiology Results: Microbiology 05/29/22 13:26 Blood Culture - Preliminary Blood - Venous No growth after 48 hours. 05/29/22 13:26 Blood Culture - Preliminary Blood - Venous No growth after 48 hours. Procedures Date of Service Date of Service: 06/01/22 Progress Note: A&P Assessment and plan (1) Dehiscence of fascia: Status: Acute (2) Perforated diverticulum of large intestine: Status: Acute Plan 71 year old male admitted for perforated diverticulitis who subsequently underw ent nimo procedure almost 2 weeks. He was slowly improving but had WBC count trending up with increasing incisional drainage and was found to have fascial dehiscence confirmed on CT. He required repair of fascial dehiscence, revision of colostomy 05/29/22. He was found to have loosening of the midline fascial closure with herniating small bowel within the subcutaneous tissue. Main issue is pain and electrolyte abnormalities at this point. VSS. Abd less distended, incision clean and all wound flavia removed, ostomy viable appearing. Continue current pain regimen. Encouraged to increase activity in preparation for discharge to home. Home when pain is tolerable on PO analgesics. Replace lytes. Wean O2. Hospitalists following. Time Spent With Patient Time: Total time managing care of this patient today ____ minutes. Quality Stroke Does the patient have a stroke diagnosis?: No VTE Prior VTE?: No VTE Risk Level:: Surgical - high VTE Device Contraindication: N/A - Device Ordered VTE Drug Contraindication: N/A - Med Ordered
[2022-06-01] MEDS: 0.9 % Sodium Chloride Flush 3 ML SYRINGE IVFLUSH (09:02)
[2022-06-01] MEDS: HYDROmorphone HCl 0.5 MG/0.5 ML SYRINGE 1 MG IVPUSH ×4 (09:03→22:11)
[2022-06-01] MEDS: Finasteride 5 MG TABLET PO (09:23)
[2022-06-01] MEDS: dilTIAZem HCL CD 240 MG CAP.ER.DEG PO (09:23)
[2022-06-01] MEDS: Memantine HCl 5 MG TABLET PO ×2 (09:23→22:09)
[2022-06-01] MEDS: Tamsulosin HCL 0.4 MG CAPSULE PO ×2 (09:23→22:09)
[2022-06-01] MEDS: DULoxetine HCl 30 MG CAPSULE.DR PO (09:23)
[2022-06-01] MEDS: Carbidopa/Levodopa 25/100 TABLET 1 TAB PO ×4 (09:23→22:09)
[2022-06-01] MEDS: Lidocaine 4 % Patch ADH..PATCH 1 PATCH TRANSDERMA (09:24)
[2022-06-01] MEDS: levoFLOXacin/D5W 750 MG/150 ML PIGGYBACK 100 MG IV (09:24)
[2022-06-01] MEDS: Magnesium Oxide 400 MG TABLET PO (09:26)
[2022-06-01] MEDS: Fluticasone Propionate Nasal 16 GM SPRAY 1 SPRAY NOSTRIL-B ×2 (09:27→22:14)
[2022-06-01] MEDS: Pregabalin 150 MG CAPSULE PO ×2 (09:27→22:09)
[2022-06-01] MEDS: rOPINIRole HCL 2 MG TABLET 6 MG PO (11:42)
[2022-06-01 16:00] VITALS: BP 132/63; PULSE 94; RESP 17; TEMP 36.4; O2SAT 95
[2022-06-01] MEDS: amantadine HCL 100 MG CAPSULE PO (17:32)
[2022-06-01 19:27] VITALS: BP 147/70; PULSE 95; RESP 17; TEMP 36.7; O2SAT 95
[2022-06-01] MEDS: Donepezil HCl 10 MG TABLET PO (22:09)
[2022-06-01] MEDS: rOPINIRole HCL 2 MG TABLET 12 MG PO (22:09)
[2022-06-01] MEDS: traZODone HCL 100 MG TABLET 300 MG PO (22:28)
[2022-06-02] MEDS: HYDROmorphone HCl 0.5 MG/0.5 ML SYRINGE 1 MG IVPUSH ×2 (01:37→06:04)
[2022-06-02] MEDS: Heparin Sodium,Porcine 5,000 UNIT/ML VIAL 5000 UNIT SUBCUT ×2 (04:12→15:15)
[2022-06-02] MEDS: oxyCODONE HCl Immed Release 5 MG TABLET PO ×4 (04:12→20:32)
[2022-06-02 04:14] VITALS: BP 140/70; PULSE 89; RESP 18; TEMP 36.2; O2SAT 96
[2022-06-02] MEDS: Omeprazole 20 MG CAPSULE.DR PO (06:03)
[2022-06-02] MEDS: Levothyroxine Sodium 50 MCG TABLET PO (06:03)
--- NOTE | 2022-06-02 06:51 | PC.NURSE ---
pt refusing sequential stockings educated on importance of therapy
[2022-06-02 07:38] LABS: Magnesium 1.5 mg/dL (1.6-2.6)
[2022-06-02 08:00] VITALS: BP 134/68; PULSE 83; RESP 16; TEMP 36.7; O2SAT 94
[2022-06-02] MEDS: DULoxetine HCl 30 MG CAPSULE.DR PO (08:52)
[2022-06-02] MEDS: dilTIAZem HCL CD 240 MG CAP.ER.DEG PO (08:52)
[2022-06-02] MEDS: Carbidopa/Levodopa 25/100 TABLET 1 TAB PO ×4 (08:52→20:18)
[2022-06-02] MEDS: Pregabalin 150 MG CAPSULE PO ×2 (08:52→20:18)
[2022-06-02] MEDS: Finasteride 5 MG TABLET PO (08:53)
[2022-06-02] MEDS: Magnesium Oxide 400 MG TABLET PO ×2 (08:53→15:49)
[2022-06-02] MEDS: Tamsulosin HCL 0.4 MG CAPSULE PO ×2 (08:53→20:18)
[2022-06-02] MEDS: Fluticasone Propionate Nasal 16 GM SPRAY 1 SPRAY NOSTRIL-B ×2 (08:53→21:54)
[2022-06-02] MEDS: Memantine HCl 5 MG TABLET PO ×2 (08:53→20:18)
--- NOTE | 2022-06-02 09:41 | P.PNGS_ITS ---
Subjective Subjective Date of Service: 06/02/22 Interval history: Feeling much better but thinks he will benefit from rehab. OOB and ambulating but is weak. Pain improved. Tolerating solid diet but not eating much because he dislikes food. Physical Exam Vital Signs: Vital Signs: Last Vital Signs Temp 98.0 F 06/02/22 08:00 Pulse 83 06/02/22 08:00 Resp 16 06/02/22 08:00 BP 134/68 06/02/22 08:00 Pulse Ox 94 06/02/22 08:00 O2 Del Method 06/02/22 08:00 O2 Flow Rate 2 06/02/22 08:00 BMI result Body Mass Index 31.9 Const: General: comfortable, no acute distress and alert Resp: Effort & Inspection: normal respiratory effort GI: Other: ostomy viable appearing Inspection: No distended and Yes incision (clean, some drainage) Palpation (GI): Soft to palpation, Tenderness to palpation present (GI) (mild, incisional), no guarding and not rigid Percussion: Yes normal to percussion Skin: General skin exam: no rashes or lesions noted Neuro: General: moves all extremities Objective Data Active Medications Amantadine HCl (Amantadine Hcl 100 Mg Capsule) 100 mg PO Q2D [facility] Last Admin: 06/01/22 17:32 Dose: 100 mg Documented By: BABAR Baclofen (Baclofen 20 Mg Tablet) 20 mg PO BID PRN PRN Reason: pain (scale score 4-6) Last Admin: 05/29/22 19:52 Dose: 20 mg Documented By: COTEMA Buspirone HCl (Buspirone Hcl 10 Mg Tablet) 10 mg PO BID PRN PRN Reason: Anxiety Last Admin: 05/29/22 19:52 Dose: 10 mg Documented By: AGUILA Carbidopa/Levodopa (Carbidopa/Levodopa 25/100 Tablet) 1 tab PO QID [facility] Last Admin: 06/02/22 08:52 Dose: 1 tab Documented By: DEYSI Diltiazem HCl (Diltiazem Hcl Cd 240 Mg Cap.Er.Deg) 240 mg PO DAILY [facility]; Pr otocol Last Admin: 06/02/22 08:52 Dose: 240 mg Documented By: DEYSI Donepezil HCl (Donepezil Hcl 10 Mg Tablet) 10 mg PO BEDTIME [facility] Last Admin: 06/01/22 22:09 Dose: 10 mg Documented By: JAMES Duloxetine HCl (Duloxetine Hcl 30 Mg Capsule.) 30 mg PO DAILY [facility] Last Admin: 06/02/22 08:52 Dose: 30 mg Documented By: DEYSI Finasteride (Finasteride 5 Mg Tablet) 5 mg PO DAILY [facility] Last Admin: 06/02/22 08:53 Dose: 5 mg Documented By: DEYSI Fluticasone Propionate (Fluticasone Propionate Nasal 16 Gm [place]) 1 spray NOSTRIL-B BID [facility] Last Admin: 06/02/22 08:53 Dose: 1 spray Documented By: DEYSI Heparin Sodium (Porcine) (Heparin Sodium,Porcine 5,000 Unit/Ml Vial) 5,000 unit SUBCUT Q12H [facility] Last Admin: 06/02/22 04:12 Dose: 5,000 unit Documented By: JAMES Levofloxacin (Levaquin) 750 mg in 150 mls @ 100 mls/hr IV Q48H [facility] Last Infusion: 06/01/22 13:14 Dose: 0 mls/hr Documented By: BABAR Levothyroxine Sodium (Levothyroxine Sodium 50 Mcg Tablet) 50 mcg PO DAILY@0600 [facility] Last Admin: 06/02/22 06:03 Dose: 50 mcg Documented By: JAMES Lidocaine (Lidocaine 4 % Patch Adh..Patch) 1 patch TRANSDERMA DAILY [facility] Last Admin: 06/02/22 08:53 Dose: Not Given Documented By: DEYSI Non-Admin Reason: Patient Refused Magnesium Hydroxide (Milk Of Magnesia 30 Ml Oral.Susp) 30 ml PO DAILY PRN PRN Reason: Constipation Memantine (Memantine Hcl 5 Mg Tablet) 5 mg PO BID [facility] Last Admin: 06/02/22 08:53 Dose: 5 mg Documented By: DEYSI Omeprazole (Omeprazole 20 Mg Capsule.) 20 mg PO DAILY@0630 [facility] Last Admin: 06/02/22 06:03 Dose: 20 mg Documented By: JAMES Oxycodone HCl (Oxycodone Hcl Immed Release 5 Mg Tablet) 5 mg PO Q4H PRN PRN Reason: Pain, Mild (Pain Scale 1-3) Last Admin: 06/02/22 08:53 Dose: 5 mg Documented By: DEYSI Pharmacy Consult (Consult Rx Perform Med Rec) 1 each MISCELLANE ONCE PRN PRN Reason: Consult order Pregabalin (Pregabalin 150 Mg Capsule) 150 mg PO BID [facility] Last Admin: 06/02/22 08:52 Dose: 150 mg Documented By: DEYSI Prochlorperazine Edisylate (Prochlorperazine Edisylate 10 Mg/2 Ml Vial) 5 mg IVPUSH Q6H PRN PRN Reason: Nausea and Vomiting Last Admin: 05/27/22 19:15 Dose: 5 mg Documented By: KRISTA Ropinirole HCl (Ropinirole Hcl 2 Mg Tablet) 6 mg PO DAILY@1200 [facility] Last Admin: 06/01/22 11:42 Dose: 6 mg Documented By: BABAR Ropinirole HCl (Ropinirole Hcl 2 Mg Tablet) 12 mg PO BEDTIME [facility] Last Admin: 06/01/22 22:09 Dose: 12 mg Documented By: JAMES Sodium Chloride (0.9 % Sodium Chloride Flush 3 Ml Syringe) 3 ml IVFLUSH QSHIFT [facility] Last Admin: 06/02/22 08:46 Dose: Not Given Documented By: DEYSI Non-Admin Reason: IV Running Tamsulosin HCl (Tamsulosin Hcl 0.4 Mg Capsule) 0.4 mg PO BID [facility] Last Admin: 06/02/22 08:53 Dose: 0.4 mg Documented By: DEYSI Tizanidine HCl (Tizanidine Hcl 4 Mg Tablet) 4 mg PO DAILY PRN PRN Reason: muscle spasticity Last Admin: 05/29/22 19:52 Dose: 4 mg Documented By: COTEMA Trazodone HCl (Trazodone Hcl 100 Mg Tablet) 300 mg PO BEDTIME PRN PRN Reason: insomnia Last Admin: 06/01/22 22:28 Dose: 300 mg Documented By: JAMES Labs 06/01/22 08:00 05/31/22 06:12 Labs: Laboratory Results - last 24 hr 06/02/22 05:19 Magnesium 1.5 L Procedures Date of Service Date of Service: 06/02/22 Progress Note: A&P Assessment and plan (1) Dehiscence of fascia: Status: Acute (2) SIRS (systemic inflammatory response syndrome): Status: Acute (3) Perforated diverticulum of large intestine: Status: Acute Plan 71 year old male admitted for perforated diverticulitis who subsequently underwent nimo procedure almost 2 weeks. He was slowly improving but had WBC count trending up with increasing incisional drainage and was found to have fascial dehiscence confirmed on CT. He required repair of fascial dehiscence, revision of colostomy 05/29/22. He was found to have loosening of the midline fascial closure with herniating small bowel within the subcutaneous tissue. Doing well, pain improved and activity slowly increasing. VSS. Incision clean, some drainage as wound is open where wound flavia were in place, ostomy viable ap pearing. Plan for discharge to [facility], likely tomorrow if remains stable or when bed available. Mg still low- begin magnesium PO BID and repeat in am. Add ensure supplements BID to increase PO intake overall. Time Spent With Patient Time: Total time managing care of this patient today ____ minutes. Quality Stroke Does the patient have a stroke diagnosis?: No VTE Prior VTE?: No VTE Risk Level:: Surgical - high VTE Device Contraindication: N/A - Device Ordered VTE Drug Contraindication: N/A - Med Ordered
[2022-06-02] MEDS: HYDROmorphone HCl 0.5 MG/0.5 ML SYRINGE IVPUSH ×4 (10:49→23:30)
[2022-06-02] MEDS: rOPINIRole HCL 2 MG TABLET 6 MG PO (13:29)
--- NOTE | 2022-06-02 14:52 | MHC.CM.PN ---
Addendum entered by Marilyn Ortiz RN 06/02/22 15:11: CM RECEIVED A CALL FROM [facility] WHO REPORT IF [facility] NOT OFF[facility] PT A BED THEY WILL OFFER, CM VERIFIED W/PT HE DOES NOT USE A CPAP, SNF UPDATED VIA [facility]. 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 [facility] ALSO INTERESTED AND ASKING QUESTIONS HOWEVER WILL NEED PT TO SEE PT AGAIN PRIOR TO ACCEPTING PT.
[2022-06-02 15:48] VITALS: BP 133/68; PULSE 91; RESP 18; TEMP 36.6; O2SAT 95
[2022-06-02] MEDS: 0.9 % Sodium Chloride Flush 3 ML SYRINGE IVFLUSH ×2 (15:49→19:43)
--- NOTE | 2022-06-02 17:03 | PC.NURSE ---
Pt complaining of SOB on RA O2 sat 97%, Keli GARCIA saw patient, Chest x-ray ordered, transportation on floor to bring patient down for the XRAY, Patient refused stating he was feeling better and did not need it. Keli GARCIA notified. will continue to monitor patient.
--- NOTE | 2022-06-02 18:30 | PC.NURSE ---
Pt notified aide that Colostomy bag was coming loose from skin, upon assessment colostomy bag was loose with stool leaking out onto abd dressing, Colostomy bag was removed, area cleaned, New colostomy bag was put in place using skin prep. Soiled ABD dressing removed and this nurse replaced dsg with ABD pads secured with tape, dressing is D/C/I.
[2022-06-02] MEDS: Donepezil HCl 10 MG TABLET PO (20:18)
[2022-06-02] MEDS: rOPINIRole HCL 2 MG TABLET 12 MG PO (20:19)
[2022-06-02] MEDS: traZODone HCL 100 MG TABLET 300 MG PO (21:53)
[2022-06-02 23:55] VITALS: BP 150/71; PULSE 87; RESP 20; TEMP 36.7; O2SAT 95
[2022-06-03 03:29] VITALS: BP 140/77; PULSE 92; RESP 20; TEMP 36.8; O2SAT 96
[2022-06-03] MEDS: oxyCODONE HCl Immed Release 5 MG TABLET PO ×2 (03:35→07:59)
[2022-06-03] MEDS: Heparin Sodium,Porcine 5,000 UNIT/ML VIAL 5000 UNIT SUBCUT (03:35)
[2022-06-03] MEDS: Levothyroxine Sodium 50 MCG TABLET PO (05:33)
[2022-06-03] MEDS: Omeprazole 20 MG CAPSULE.DR PO (05:33)
[2022-06-03] MEDS: HYDROmorphone HCl 0.5 MG/0.5 ML SYRINGE IVPUSH ×2 (05:38→12:26)
[2022-06-03 06:52] LABS: Magnesium 1.6 mg/dL (1.6-2.6)
[2022-06-03] MEDS: levoFLOXacin/D5W 750 MG/150 ML PIGGYBACK 100 MG IV (07:57)
[2022-06-03] MEDS: 0.9 % Sodium Chloride Flush 3 ML SYRINGE IVFLUSH (07:57)
[2022-06-03] MEDS: Pregabalin 150 MG CAPSULE PO (07:58)
[2022-06-03] MEDS: Finasteride 5 MG TABLET PO (07:58)
[2022-06-03] MEDS: dilTIAZem HCL CD 240 MG CAP.ER.DEG PO (07:58)
[2022-06-03] MEDS: Carbidopa/Levodopa 25/100 TABLET 1 TAB PO ×2 (07:58→12:26)
[2022-06-03] MEDS: DULoxetine HCl 30 MG CAPSULE.DR PO (07:58)
[2022-06-03] MEDS: Tamsulosin HCL 0.4 MG CAPSULE PO (07:58)
[2022-06-03] MEDS: Memantine HCl 5 MG TABLET PO (07:58)
[2022-06-03] MEDS: Magnesium Oxide 400 MG TABLET PO (07:59)
[2022-06-03] MEDS: Fluticasone Propionate Nasal 16 GM SPRAY 1 SPRAY NOSTRIL-B (07:59)
[2022-06-03 08:00] VITALS: BP 138/81; PULSE 88; RESP 18; TEMP 36.7; O2SAT 95
--- NOTE | 2022-06-03 09:34 | P.PNGS_ITS ---
Subjective Subjective Date of Service: 06/03/22 Interval history: tolerating diet good stoma function feels well good pain control Physical Exam Vital Signs: Vital Signs: Last Vital Signs Temp 98.0 F 06/03/22 08:00 Pulse 88 06/03/22 08:00 Resp 18 06/03/22 08:00 BP 138/81 06/03/22 08:00 Pulse Ox 95 06/03/22 08:00 O2 Del Method 06/03/22 08:00 O2 Flow Rate 1 06/03/22 03:29 BMI result Body Mass Index 31.9 Const: General: comfortable and no acute distress Resp: Effort & Inspection: normal respiratory effort Cardio: Rate: regular rate GI: Other: stoma on left functioning well, some separation along mucocutaneous margins but not retracted incision clean, retention sutures in place Palpation (GI): Soft to palpation, not firm and no guarding Objective Data Active Medications Amantadine HCl (Amantadine Hcl 100 Mg Capsule) 100 mg PO Q2D [facility] Last Admin: 06/01/22 17:32 Dose: 100 mg Documented By: BABAR Baclofen (Baclofen 20 Mg Tablet) 20 mg PO BID PRN PRN Reason: pain (scale score 4-6) Last Admin: 05/29/22 19:52 Dose: 20 mg Documented By: AGUILA Buspirone HCl (Buspirone Hcl 10 Mg Tablet) 10 mg PO BID PRN PRN Reason: Anxiety Last Admin: 05/29/22 19:52 Dose: 10 mg Documented By: AGUILA Carbidopa/Levodopa (Carbidopa/Levodopa 25/100 Tablet) 1 tab PO QID [facility] Last Admin: 06/03/22 07:58 Dose: 1 tab Documented By: ISABELA Diltiazem HCl (Diltiazem Hcl Cd 240 Mg Cap.Er.Deg) 240 mg PO DAILY [facility]; Protocol Last Admin: 06/03/22 07:58 Dose: 240 mg Documented By: ISABELA Donepezil HCl (Donepezil Hcl 10 Mg Tablet) 10 mg PO BEDTIME [facility] Last Admin: 06/02/22 20:18 Dose: 10 mg Documented By: CLARISSE Duloxetine HCl (Duloxetine Hcl 30 Mg Capsule.Dr) 30 mg PO DAILY [facility] Last Admin: 06/03/22 07:58 Dose: 30 mg Documented By: ISABELA Finasteride (Finasteride 5 Mg Tablet) 5 mg PO DAILY [facility] Last Admin: 06/03/22 07:58 Dose: 5 mg Documented By: ISABELA Fluticasone Propionate (Fluticasone Propionate Nasal 16 Gm [place]) 1 spray NOSTRIL-B BID [facility] Last Admin: 06/03/22 07:59 Dose: 1 spray Documented By: ISABELA Heparin Sodium (Porcine) (Heparin Sodium,Porcine 5,000 Unit/Ml Vial) 5,000 unit SUBCUT Q12H [facility] Last Admin: 06/03/22 03:35 Dose: 5,000 unit Documented By: CLARISSE Hydromorphone HCl (Hydromorphone Hcl 0.5 Mg/0.5 Ml Syringe) 0.5 mg IVPUSH Q3H PRN; Protocol PRN Reason: Pain, Severe (Pain Scale 7-10) Last Admin: 06/03/22 05:38 Dose: 0.5 mg Documented By: CLARISSE Levofloxacin (Levaquin) 750 mg in 150 mls @ 100 mls/hr IV Q48H [facility] Last Admin: 06/03/22 07:57 Dose: 100 mls/hr Documented By: ISABELA Levothyroxine Sodium (Levothyroxine Sodium 50 Mcg Tablet) 50 mcg PO DAILY@0600 [facility] Last Admin: 06/03/22 05:33 Dose: 50 mcg Documented By: CLARISSE Lidocaine (Lidocaine 4 % Patch Adh..Patch) 1 patch TRANSDERMA DAILY [facility] Last Admin: 06/03/22 07:59 Dose: Not Given Documented By: ISABELA Non-Admin Reason: Patient Refused Magnesium Hydroxide (Milk Of Magnesia 30 Ml Oral.Susp) 30 ml PO DAILY PRN PRN Reason: Constipation Magnesium Oxide (Magnesium Oxide 400 Mg Tablet) 400 mg PO BIDPC [facility] Last Admin: 06/03/22 07:59 Dose: 400 mg Documented By: ISABELA Memantine (Memantine Hcl 5 Mg Tablet) 5 mg PO BID [facility] Last Admin: 06/03/22 07:58 Dose: 5 mg Documented By: ISABELA Omeprazole (Omeprazole 20 Mg Capsule.Dr) 20 mg PO DAILY@0630 [facility] Last Admin: 06/03/22 05:33 Dose: 20 mg Documented By: CLARISSE Oxycodone HCl (Oxycodone Hcl Immed Release 5 Mg Tablet) 5 mg PO Q4H PRN PRN Reason: Pain, Mild (Pain Scale 1-3) Last Admin: 06/03/22 07:59 Dose: 5 mg Documented By: ISABELA Pharmacy Consult (Consult Rx Perform Med Rec) 1 each MISCELLANE ONCE PRN PRN Reason: Consult order Pregabalin (Pregabalin 150 Mg Capsule) 150 mg PO BID [facility] Last Admin: 06/03/22 07:58 Dose: 150 mg Documented By: ISABELA Prochlorperazine Edisylate (Prochlorperazine Edisylate 10 Mg/2 Ml Vial) 5 mg IVPUSH Q6H PRN PRN Reason: Nausea and Vomiting Last Admin: 05/27/22 19:15 Dose: 5 mg Documented By: KRISTA Ropinirole HCl (Ropinirole Hcl 2 Mg Tablet) 6 mg PO DAILY@1200 [facility] Last Admin: 06/02/22 13:29 Dose: 6 mg Documented By: LISA Ropinirole HCl (Ropinirole Hcl 2 Mg Tablet) 12 mg PO BEDTIME [facility] Last Admin: 06/02/22 20:19 Dose: 12 mg Documented By: CLARISSE Sodium Chloride (0.9 % Sodium Chloride Flush 3 Ml Syringe) 3 ml IVFLUSH [facility] Last Admin: 06/03/22 07:57 Dose: 3 ml Documented By: ISABELA Tamsulosin HCl (Tamsulosin Hcl 0.4 Mg Capsule) 0.4 mg PO BID [facility] Last Admin: 06/03/22 07:58 Dose: 0.4 mg Documented By: ISABELA Tizanidine HCl (Tizanidine Hcl 4 Mg Tablet) 4 mg PO DAILY PRN PRN Reason: muscle spasticity Last Admin: 05/29/22 19:52 Dose: 4 mg Documented By: COTEMA Trazodone HCl (Trazodone Hcl 100 Mg Tablet) 300 mg PO BEDTIME PRN PRN Reason: insomnia Last Admin: 06/02/22 21:53 Dose: 300 mg Documented By: CLARISSE Labs 06/01/22 08:00 05/31/22 06:12 Labs: Laboratory Results - last 24 hr 06/03/22 05:33 Magnesium 1.6 Procedures Date of Service Date of Service: 06/03/22 Progress Note: A&P Assessment and plan (1) Perforated diverticulum of large intestine: Status: Acute Assessment and Plan: S/P Milla's and S/P repair of fascial dehiscence doing well incision intact stoma functioning well clinically looks well good GI function he says he is ready to be discharged to [facility] dw case management director - bed available ok to transfer to [place] today in room Time Spent With Patient Time: Total time managing care of this patient today ____ minutes. Quality Stroke Does the patient have a stroke diagnosis?: No VTE Prior VTE?: No VTE Risk Level:: Surgical - high VTE Device Contraindication: N/A - Device Ordered VTE Drug Contraindication: N/A - Med Ordered
--- NOTE | 2022-06-03 09:50 | P.DS_ITS ---
DS: Providers Provider Date of Service: 07/01/22 Date of admission: 05/18/22 12:04 Primary care physician: Enrrique Bryan MD Consults: 05/18/22 14:31 Consult to Hospitalist Routine Consulting Provider: Hospitalist Reason For Exam: Perf. divertic, SIRs, med management 05/18/22 18:55 Consult to Nephrology Routine Consulting Provider: Saul Mann Reason for consultation: jenna Has provider been notified: No 05/28/22 08:52 Consult to Hospitalist Routine Consulting Provider: Hospitalist Reason For Exam: leukocytosis DS: Diagnosis Discharge Diagnosis (1) Perforated diverticulum of large intestine: Status: Resolved DS: Summary Hospital Course Hospital Course: This patient was a patient of Dr. Mcneill. 71M admitted on the evening of 2022 for abdominal pain. His CT showed perforated diverticulitis, so he underwent laparotomy, Milla's procedure and washout for intraabdominal interloop abscesses on the morning of May 18, 2022. His postop course was significant for confusion, and worsening renal. His kidney function eventually improved after POD no. 4. His mental status imrpoved. He started to have good stoma function so his diet was advanced and he continued to tolerate this. He was noted to have some draiange from his incision on May. 8 so some of his chris were removed. On May 29, he was noted to have a fascial dehsicene so he was brought back to the OR for repair of this fascial dehiscence with retention sutures. His stoma at that time was noted to have retracted so this was revised with placement of additional seromuscular sutures. He was managed for pain control and he continues to steadily improve. He had good GI function. He had signfiicant leukocytosis of 29 on b 13 but this normalized on Feb 16. He was also manage for hypokalemia and hypernatremia by the hospitalist. Currently, he has good pain control and has feels well overall. He has been afebrile. He has good GI function. Time Spent with Patient Time attestation: Total time managing care of this patient today ____ minutes. Discharge coordination time: Greater than 30 minutes Quality: Safe Use of Opioids Does Pt have an Active Cancer Diagnosis on the Problem List?: No Quality: Stroke Does the patient have a stroke diagnosis?: No Physical Exam Vital Signs: Vital Signs: Last Vital Signs Temp 98.0 F 06/03/22 08:00 Pulse 88 06/03/22 08:00 Resp 18 06/03/22 08:00 BP 138/81 06/03/22 08:00 Pulse Ox 95 06/03/22 08:00 O2 Del Method 06/03/22 08:00 O2 Flow Rate 1 06/03/22 03:29 BMI result Body Mass Index 31.9 Const: General: comfortable and no acute distress Resp: Effort & Inspection: normal respiratory effort Cardio: Rate: regular rate GI: Other: incision clean, retention sutures in place, stoma functioning wall, some separation along mucocutaneous margin Palpation (GI): Soft to palpation, not firm and nontender Extrem: General: Yes normal to inspection DS: Data Data Completed and Pending Completed studies during hospitalization [Text1]: Pending at discharge 05/18/22 09:45 Surgical [PTH] Routine Labs on day of discharge: Laboratory Results - last 24 hr 06/03/22 05:33 Magnesium 1.6 Preliminary micro results at discharge 05/29/22 13:26 Blood Culture - Preliminary Blood - Venous No growth after 48 hours. 05/29/22 13:26 Blood Culture - Preliminary Blood - Venous No growth after 48 hours. Laboratory Results WBC 10.4 X10*3/uL (4.8-10.8) 06/01/22 08:00 RBC 3.17 X10*6/uL (4.60-5.80) L 06/01/22 08:00 Hgb 9.8 g/dl (14.0-18.0) L 06/01/22 08:00 POC Hgb (Calc) 10.2 g/dL (14.0-18.0) L 05/29/22 08:12 Hct 31.8 % (42.0-52.0) L 06/01/22 08:00 POC Hct 30 %PCV (42-52) L 05/29/22 08:12 MCV 100.3 fL (80.0-98.0) H 06/01/22 08:00 MCH 30.9 pg (27.0-33.0) 06/01/22 08:00 MCHC 30.8 g/dl (31.0-36.0) L 06/01/22 08:00 RDW 15.6 % (11.0-16.0) 06/01/22 08:00 Plt Count 418 X10*3/uL (160-400) H D 06/01/22 08:00 MPV 8.9 fL (9.4-12.4) L 06/01/22 08:00 Immature Gran % (Auto) 1.2 % (0.0-0.4) H 06/01/22 08:00 Neut % (Auto) 80.3 % (45-73) H 06/01/22 08:00 Lymph % (Auto) 8.9 % (20-40) L 06/01/22 08:00 [place] % (Auto) 7.1 % (2-11) 06/01/22 08:00 Eos % (Auto) 1.8 % (0-4) 06/01/22 08:00 Baso % (Auto) 0.7 % (0-2) 06/01/22 08:00 Lymph # (Auto) 0.9 X10*3/uL (1.2-4.9) L 06/01/22 08:00 [place] # (Auto) 0.7 X10*3/uL (0.1-1.2) 06/01/22 08:00 Eos # (Auto) 0.2 X10*3/uL (0.0-0.4) 06/01/22 08:00 Baso # (Auto) 0.1 X10*3/uL (0.0-0.2) 06/01/22 08:00 Abs Immat Gran (auto) 0.12 X10*3/uL (0.00-0.03) H 06/01/22 08:00 Absolute Neuts (auto) 8.4 x10*3/uL (2.0-8.3) H 06/01/22 08:00 Absolute Nucleated RBC 0.000 X10*3/uL (0.0-0.012) 06/01/22 08:00 Nucleated RBC % (auto) 0.0 /100WBC (0.0-0.2) 06/01/22 08:00 Neutrophils % (Manual) 86 % (45-73) H 05/28/22 06:12 Band Neutrophils % 2 % (3-5) L 05/28/22 06:12 Lymphocytes % (Manual) 5 % (20-40) L 05/28/22 06:12 Monocytes % (Manual) 2 % (2-11) 05/28/22 06:12 Eosinophils % (Manual) 2 % (0-4) 05/28/22 06:12 Basophils % (Manual) 3 % (0-2) H 05/28/22 06:12 Metamyelocytes % 1 % 05/19/22 06:45 Myelocytes % 1 % 05/19/22 06:45 Abs Neuts (Manual) 18.2 X10*3/uL (2.0-8.3) H 05/28/22 06:12 Lymphocytes # (Manual) 1.0 X10*3/uL (1.2-4.9) L 05/28/22 06:12 Monocytes # (Manual) 0.4 X10*3/uL (0.1-1.2) 05/28/22 06:12 Eosinophils # (Manual) 0.4 X10*3/uL (0.0-0.4) 05/28/22 06:12 Basophils # (Manual) 0.6 X10*3/uL (0.0-0.2) H 05/28/22 06:12 Metamyelocytes # 0.1 X10*3/uL 05/19/22 06:45 Myelocytes # 0.1 X10*/uL 05/19/22 06:45 Platelet Estimate INCREASED (NORMAL) 05/28/22 06:12 Large Platelets PRESENT 05/28/22 06:12 Plt Morphology Comment NOTED 05/28/22 06:12 RBC Morphology NOTED 05/28/22 06:12 Polychromasia 1+ (0-2) /OIF 05/28/22 06:12 Hypochromasia 1+ (5-14) /OIF 05/28/22 06:12 Macrocytosis 1+ (5-14) /OIF 05/28/22 06:12 [place] Cells 3+ (>5) /OIF 05/19/22 06:45 Acanthocytes (Spur) 1+ (0-2) /OIF 05/19/22 06:45 Smear Tech's Comments VERIFIED 05/30/22 05:35 PT 13.0 SEC (10.0-13.1) 05/17/22 22:17 INR 1.1 (0.9-1.1) 05/17/22 22:17 POC Std Base Excess 5 mmol/L (-3-3) H 05/29/22 08:12 POC O2 Sat (Calc) 98 % 05/29/22 08:12 POC ABG pO2 103 mmhg (83-108) 05/29/22 08:12 POC ABG Total CO2 32 mmol/L (24-29) H 05/29/22 08:12 VBG pH 7.34 (7.32-7.43) 05/18/22 17:41 VBG pCO2 49 mmHg 05/18/22 17:41 VBG pO2 132 mmHg 05/18/22 17:41 VBG HCO3 27 mmol/L (22-26) H 05/18/22 17:41 VBG O2 Saturation 100.0 % 05/18/22 17:41 VBG Base Excess 1.2 mmol/L 05/18/22 17:41 POC Capillary pH 7.39 (7.35-7.45) 05/29/22 08:12 POC Capillary pCO2 50 mmhg (35-48) H 05/29/22 08:12 POC Cap HCO3 (Calc) 30 mmol/L (22-26) H 05/29/22 08:12 POC Sodium 140 mmol/L (135-145) 05/29/22 08:12 Sodium 145 mmol/L (135-145) 05/31/22 06:12 POC Potassium 2.8 mmol/L (3.3-5.1) L 05/29/22 08:12 Potassium 4.0 mmol/L (3.3-5.1) 05/31/22 06:12 Chloride 106 mmol/L (96-108) 05/31/22 06:12 Carbon Dioxide 30 mmol/L (22-29) H 05/31/22 06:12 Anion Gap 13 (12-20) 05/31/22 06:12 BUN 6 mg/dL (9-16) L 05/31/22 06:12 Creatinine 0.52 mg/dL (0.5-1.4) 05/31/22 06:12 Estim Creat Clear Calc 139.2 05/31/22 06:12 Estimated GFR > 60 05/31/22 06:12 POC Glucose 196 mg/dL (60-115) H 05/29/22 08:12 Random Glucose 92 mg/dL (60-115) 05/31/22 06:12 Fasting Glucose 106 mg/dL (60-99) H 05/30/22 05:35 Lactic Acid 1.2 mmol/L (0.5-2.0) 05/17/22 18:07 Calcium 7.7 mg/dL (8.4-10.2) L 05/31/22 06:12 Phosphorus 3.1 mg/dL (2.7-4.5) 05/29/22 10:24 Magnesium 1.6 mg/dL (1.6-2.6) 06/03/22 05:33 Total Bilirubin 1.0 mg/dL (0.0-1.0) 05/17/22 18:07 Direct Bilirubin 0.6 mg/dL (0.0-0.5) H 05/17/22 18:07 AST 18 U/L (5-37) 05/17/22 18:07 ALT < 6 U/L (0-40) 05/17/22 18:07 Alkaline Phosphatase 105 U/L (39-117) 05/17/22 18:07 Ammonia 37 umol/L (13-55) 05/17/22 20:40 Troponin I High Sens 4.4 ng/L (<3.5-35.0) 05/17/22 22:48 B-Natriuretic Peptide 170 pg/mL (<100) H 05/18/22 03:03 Total Protein 5.6 g/dL (6.5-8.0) L 05/17/22 18:07 Albumin 3.2 g/dL (3.5-5.0) L 05/17/22 18:07 Urine Color [place] A 05/17/22 22:34 Urine Appearance Turbid 05/17/22 22:34 Urine pH 5.5 (5.0-9.0) 05/17/22 22:34 Ur Specific [place] 1.020 (1.005-1.025) 05/17/22 22:34 Urine Protein 100 (2+) mg/dL (Neg-Trace) H 05/17/22 22:34 Urine Glucose (UA) 100 mg/dL (Negative) H 05/17/22 22:34 Urine Ketones Negative mg/dL (Negative) 05/17/22 22:34 Urine Blood Moderate (2+) (Negative) H 05/17/22 22:34 Urine Nitrite Positive (Negative) H 05/17/22 22:34 Ur Leukocyte Esterase Small (1+) (Negative) H 05/17/22 22:34 Urine RBC 3-5 /HPF (0-2) H 05/17/22 22:34 Urine WBC 6-10 /HPF (0-5) H 05/17/22 22:34 Ur Squamous Epith Cells >20 /HPF (0-2) 05/17/22 22:34 Urine Bacteria None Seen (None Seen) 05/17/22 22:34 Hyaline Casts 3-5 /LPF (0-2) 05/17/22 22:34 Granular Casts Present 05/17/22 22:34 COVID-19 (NITO) Negative (Negative) 05/17/22 19:37 COVID-19 Clin Com See Note 05/17/22 19:37 Hep Bs Antigen Negative (Negative) 05/19/22 09:14 Hep Bs Antibody NONREACTIVE (Nonreactive) 05/19/22 09:14 Hep B Core Total Ab Nonreactive (Nonreactive) 05/19/22 09:14 Blood Type O Negative 05/17/22 22:17 Antibody Screen NEGATIVE 05/17/22 22:[address] 05/17/22 20:25 IMPRESSION: Diffuse colonic diverticulosis most prominent sigmoid colon with diffuse mural thickening, significant fat stranding and extraluminal air along the left aspect of the sigmoid colon as described above. There is scattered free air extending into the upper abdomen. No acute intracranial process seen. Suspect right frontal scalp hematoma. Results were immediately called by phone to Clifton Mayen in ED at 9:35 PM. Chest X-Ray 05/18/22 02:57 IMPRESSION: Low lung volumes with mild streaky bibasilar opacities more suggestive of atelectasis. Mildly prominent central vasculature and surrounding interstitium may reflect a degree of congestion versus airways disease. Abdomen X-Ray 05/26/22 08:53 IMPRESSION: There does not appear to be significant interval change in the nxbzuujx-en-lkyamxctlyw gaseous distention of the stomach and vsru-ud-cvfacmld gaseous distention of the small-bowel loops in the left hemiabdomen compared to previous CT. Developing small-bowel obstruction cannot be excluded. Abdomen/Pelvis CT 05/28/22 14:13 IMPRESSION: * Although small bowel remains dilated, the degree of small bowel distention is mildly improved compared to 05/24/2022. This could represent a mildly improving postoperative ileus versus an improving partial small bowel obstruction. * There is a new ventral abdominal wall incisional hernia that contains fat and small bowel. Also, there is a new collection of fluid along the superior margin of the hernia sac (image 34, series 3). * Persistent edema/inflammation in subcutaneous tissue around the descending colostomy without abdominal wall fluid collection in this area. Discharge Plan Discharge Anticipated Discharge Date/Time: 06/03/22 10:04 Patient Disposition: [facility] Discharge Diagnosis: perforated diverticulitis, fascial dehiscence Referrals: Nedra Hoyos [Outside] - 1 Week Enrrique Bryan MD [Primary Care Provider] - 1 Week Aric Mcneill MD [Physician] - 1 Week Discharge Medications: New oxycodone 5 mg tablet 5 mg PO Q4H PRN (Reason: pain) Qty: 20 0RF Rx Instructions: Partial Fill upon patient request. Continued baclofen 20 mg tablet 20 mg PO BID PRN (Reason: pain (scale score 4-6)) 30 Days Qty: 60 11RF tizanidine 4 mg tablet 4 mg PO TID PRN (Reason: muscle spasticity) 30 Days Qty: 90 11RF diltiazem HCl 240 mg capsule,extended release 24hr 240 mg PO DAILY Qty: 90 3RF amantadine HCl 100 mg tablet 1 tab PO TID lisinopril 20 mg tablet 1 tab PO DAILY ropinirole 3 mg tablet 6 mg PO DAILY@1200 trazodone 100 mg tablet 3 tab PO BEDTIME PRN (Reason: insomnia) buspirone 10 mg tablet 1 tab PO BID PRN (Reason: Anxiety) ferrous sulfate 325 mg (65 mg iron) Tablet,Delayed Release (Dr/Ec) 325 mg PO DAILY cholecalciferol (vitamin D3) [Vitamin D3] 50 mcg (2,000 unit) Tablet 50 mcg PO DAILY pantoprazole 40 mg tablet,delayed release (DR/EC) 40 mg PO DAILY@0630 ondansetron HCl 4 mg tablet 4 mg PO DAILY PRN (Reason: Nausea) ropinirole 3 mg tablet 12 mg PO BEDTIME Rx Instructions: starting to reduce to stop levothyroxine 50 mcg tablet 50 mcg PO DAILY@0600 lidocaine 5 % adhesive patch,medicated 1 patch topical DAILY Rx Instructions: leave on most painful area for up to 12 hrs diclofenac sodium 1 % gel 2 g topical QID PRN (Reason: Inflammation) Rx Instructions: apply to single elbow, wrist or hand; for hand includes palm/fingers/back of hand carbidopa-levodopa 25-100 mg tablet 1 tab PO QID tamsulosin 0.4 mg capsule 0.4 mg PO BID finasteride 5 mg tablet 5 mg PO DAILY multivitamin [Daily Multi-Vitamin] Tablet 1 tab PO DAILY fluticasone propionate 50 mcg/actuation spray,suspension 1 spray intranasal BID Rx Instructions: administer into both nostrils duloxetine 60 mg capsule,delayed release(DR/EC) 60 mg PO DAILY pregabalin 300 mg capsule 300 mg PO BID memantine 10 mg tablet 10 mg PO BID donepezil 10 mg tablet 10 mg PO BEDTIME oxycodone 5 mg tablet 5 mg PO Q4H MDD 5 PRN (Reason: pain) 30 Days Qty: 150 0RF Rx Instructions: Partial Fill upon patient request. Patient may take up to 5 pills a day. naloxone [Narcan] 4 mg/actuation spray,non-aerosol 4 mg intranasal Q2M PRN (Reason: opioid overdose) Qty: 2 0RF Rx Instructions: spray 1 dose into ONE nostril; alternate nostrils w each dose until help arrives No Action amantadine HCl 100 mg tablet 100 mg PO BID bisacodyl [Dulcolax (bisacodyl)] 10 mg suppository 10 mg [place] DAILY PRN Discharge Orders: Discharge Order (Routine); Ordered 06/03/22 Ordered By: Enrrique Borja Diet: Advance to usual diet Activity on Discharge: No heavy lifting Stand Alone Forms: Patient Portal Discharge page Care Plan Goals: pain mgt continue care for medical issues stoma care Health Concerns: HTN, chronic back pain, BPH, hypothyroidism Plan of Treatment: continue home meds oral pain meds Assessment: doing well postop Discharge Date/Time: 06/03/22 14:11
[2022-06-03 11:34] LABS: COVID-19 Test Negative (Negative); IDNOW Serial# 16C4AD1C
--- NOTE | 2022-06-03 12:19 | MHC.CM.PN ---
Addendum entered by Muna Clements 06/03/22 13:38: BLS TRANSPORT SCHEDULED FOR 1400 HOURS Original Note: PT IS CLEARED TO DC TODAY [facility] NOT OFFERING A BED PT AND ACCEPTING A BED AT [facility] PT WILL BE TRANSPORTED VIA [facility] PER HIS PREFERENCE
[2022-06-03] MEDS: rOPINIRole HCL 2 MG TABLET 6 MG PO (12:26)
--- NOTE | 2022-06-06 11:47 | P.CDIR_ITS ---
Documented by User: Amira Cabrera CCS, CDIS 06/06/22 11:54 Retrospective Query PHYSICIAN'S DOCUMENTATION REQUEST Date of Query: 06/06/22 1148 Patient Name: Kevan Rivas Admit Date: 05/18/22 Dear Doctor, A review of the medical record indicates additional documentation may be needed. Please review below and update the documentation accordingly. Clinical Indicators: Risk Factors/Clinical Indicators/Treatments Surgery progress note 2/2 - SIRS - perforated sigmoid diverticulitis of large intestine. WBC 29.2 HR 111 RR 24 BP 94/58 L Nephrology note 2/3 - Suggestive ATN in the setting of severe sepsis. Surgery progress note 2/8 - Clinically Septic upon admission due to hypotension. Please clarify which of the following most accurately describes the above abnormalities: * Sepsis due to perforated sigmoid diverticulitis - POA, resolved etc. * Systemic manifestations of infection, with 2 or more SIRS criteria which include: -Fever > 100.4F or hypothermia < 96.8 F -Leukocytosis - WBC > 12,000 or leukopenia, WBC < 4,000 or > 10% bands -Tachycardia > 90 beats/minute -Tachypnea - RR > 20 breaths/minute or PaCO2 < 32mmHg * SIRS due to a non-infectious source * Indicate the known or suspected etiology * Indicate if there is associated organ dysfunction, such as renal or respiratory failure * Other * Unable to determine Use of terms such as suspected, likely, concern for, or probable (associated with a specific diagnosis that is being evaluated, monitored, or treated as if it exists) are acceptable and can be coded in the inpatient setting, when documented at the time of discharge. Thank you, Amira Cabrera [facility], CDIS Extension:[phone] Please use your independent medical judgment in providing your response. THIS QUERY IS PART OF THE PERMANENT MEDICAL RECORD Documented by User: Aric Mcneill MD 06/06/22 12:19 Retrospective Query Provider Response: Sepsis (Due to perforated sigmoid diverticulitis)
== END 2022-06-03 14:11 | disposition skilled nursing facility (03) | DRG 853 ==
LOC: HO.ED 05-18 07:29 → HO.SSS 05-18 07:46 → HO.S3 05-18 12:05 → HO.IMC 05-18 19:26 → HO.S3 05-31 23:30
PROVIDERS: Internal Medicine Nephrology; Nurse Practitioner Acute Care; Nurse Practitioner Family; Physician Assistant; Physician Assistant Medical; Physician Assistant Surgical; Surgery; Admitting Provider Surgery; Emergency Provider Emergency Medicine; PCP Internal Medicine; Visit Provider Surgery
PROC: 0DBN0ZZ Excision of Sigmoid Colon, Open Approach (ICD-10-PCS; CPT 49000; principal; 2022-05-18 07:30)
PROC: 0WQF0ZZ Repair Abdominal Wall, Open Approach (ICD-10-PCS; principal; 2022-05-29 08:00)
DX: A41.9 Sepsis, unspecified organism (principal); G92.8 Other toxic encephalopathy; N17.0 Acute kidney failure with tubular necrosis; K57.20 Diverticulitis of large intestine with perforation and abscess without bleeding; F05 Delirium due to known physiological condition; E87.0 Hyperosmolality and hypernatremia; T81.31XA Disruption of external operation (surgical) wound, not elsewhere classified, initial encounter; K94.03 Colostomy malfunction; G20 Parkinson's disease; F02.80 Dementia in other diseases classified elsewhere, unspecified severity, without behavioral disturbance, psychotic disturbance, mood disturbance, and anxiety; E03.9 Hypothyroidism, unspecified; N40.0 Benign prostatic hyperplasia without lower urinary tract symptoms; G25.81 Restless legs syndrome; E83.42 Hypomagnesemia; D64.9 Anemia, unspecified; E87.6 Hypokalemia; G89.29 Other chronic pain; E87.5 Hyperkalemia; I10 Essential (primary) hypertension; G47.33 Obstructive sleep apnea (adult) (pediatric); Y83.8 Other surgical procedures as the cause of abnormal reaction of the patient, or of later complication, without mention of misadventure at the time of the procedure; Z20.822 Contact with and (suspected) exposure to COVID-19; Z98.1 Arthrodesis status; Z87.891 Personal history of nicotine dependence; Z88.1 Allergy status to other antibiotic agents; Z88.2 Allergy status to sulfonamides; Z88.8 Allergy status to other drugs, medicaments and biological substances; Z79.51 Long term (current) use of inhaled steroids; Z79.890 Hormone replacement therapy; Z79.891 Long term (current) use of opiate analgesic; Z79.899 Other long term (current) drug therapy
CPT/HCPCS: 36415; 70450; 71045; 74021; 74176; 74177; 80048; 80076; 81001; 82140; 82803; 82947; 83605; 83735; 83880; 84100; 84295; 84484; 85007; 85025; 85027; 85610; 86704; 86706; 86850; 86900; 86901; 87040; 87070; 87086; 87147; 87205; 87340; 87635; 88307; 93005; 97116; 97162; 97530; 99285; C1758; C9088; J0131; J1100; J1170; J1643; J1956; J2270; J2370; J2405; J2550; J3010; J3475; Q9967

== ENCOUNTER → 2022-06-09 08:31 | Outpatient (BNVA) | payer MEDICARE, OTHER, SELFPAY | PROVIDERS: PCP Internal Medicine; Referring Provider Internal Medicine; Visit Provider Surgery | DX: Z13.89 Encounter for screening for other disorder (principal) | CPT/HCPCS: 99212 ==

== ENCOUNTER → 2022-06-23 10:49 | Outpatient (BNVA) | payer MEDICARE, OTHER, SELFPAY | PROVIDERS: PCP Internal Medicine; Referring Provider Internal Medicine; Visit Provider Surgery | DX: Z51.81 Encounter for therapeutic drug level monitoring (principal); M17.0 Bilateral primary osteoarthritis of knee; M96.1 Postlaminectomy syndrome, not elsewhere classified; G89.4 Chronic pain syndrome; K57.20 Diverticulitis of large intestine with perforation and abscess without bleeding; Z79.891 Long term (current) use of opiate analgesic | CPT/HCPCS: 99212 ==

== ENCOUNTER → 2022-07-06 09:08 | Outpatient (BNVA) | payer MEDICARE, OTHER, SELFPAY | PROVIDERS: PCP Internal Medicine; Referring Provider Internal Medicine; Visit Provider Surgery | DX: T81.32XD Disruption of internal operation (surgical) wound, not elsewhere classified, subsequent encounter (principal); Z87.19 Personal history of other diseases of the digestive system | CPT/HCPCS: 99212 ==

== ENCOUNTER 2022-07-18 11:39 | Outpatient (REF) | payer MEDICARE, OTHER, SELFPAY ==
[2022-07-18 11:57] LABS: MANUAL DIFF FLAG NO
[2022-07-18 12:18] LABS: Basophils Absolute Auto 0.1 X10*3/uL (0.0-0.2); Basophils Percent Auto 2.1 % (0-2); Eosinophils Absolute Auto 0.4 X10*3/uL (0.0-0.4); Eosinophils Percent Auto 6.5 % (0-4); Hemoglobin 13.7 g/dl (14.0-18.0); Imm Gran Abs Auto 0.02 X10*3/uL (0.00-0.03); Imm Gran Pct Auto 0.4 % (0.0-0.4); Lymphocytes Absolute Auto 1.5 X10*3/uL (1.2-4.9); Lymphocytes Percent Auto 26.9 % (20-40); Mean Corpuscular HGB Conc 32.6 g/dl (31.0-36.0); Mean Corpuscular Hemoglobin 31.4 pg (27.0-33.0); Mean Corpuscular Volume 96.1 fL (80.0-98.0); Monocytes Absolute Auto 0.4 X10*3/uL (0.1-1.2); Monocytes Percent Auto 7.8 % (2-11); Neutrophils Absolute Auto 3.2 x10*3/uL (2.0-8.3); Neutrophils Percent Auto 56.3 % (45-73); Platelet Count 198 X10*3/uL (160-400); Red Blood Count 4.37 X10*6/uL (4.60-5.80); Red Cell Distribution Width 14.7 % (11.0-16.0); White Blood Count 5.7 X10*3/uL (4.8-10.8)
[2022-07-18 13:01] LABS: Alanine Aminotransferase 8 U/L (0-40); Albumin Level 4.1 g/dL (3.5-5.0); Alkaline Phosphatase 79 U/L (39-117); Anion Gap 18 (12-20); Aspartate Amino Transferase 19 U/L (5-37); Bilirubin Total 0.5 mg/dL (0.0-1.0); Blood Urea Nitrogen 15 mg/dL (9-16); Calcium 9.1 mg/dL (8.4-10.2); Carbon Dioxide 28 mmol/L (22-29); Chloride 102 mmol/L (96-108); Estimated Glomerular Filt Rate > 60; Glucose Random 101 mg/dL (60-115); Sodium 144 mmol/L (135-145); Thyroid Stimulating Hormone 2.97 uIU/mL (0.32-4.0); Total Protein 6.3 g/dL (6.5-8.0)
== END 2022-07-18 11:40 | disposition home or self-care (01) ==
LOC: HO.LAB 11:39
PROVIDERS: PCP Internal Medicine; Visit Provider Internal Medicine
DX: Z01.818 Encounter for other preprocedural examination (principal); G20 Parkinson's disease; I10 Essential (primary) hypertension; E03.9 Hypothyroidism, unspecified
CPT/HCPCS: 36415; 80053; 84439; 84443; 85025

== ENCOUNTER → 2022-07-21 09:50 | Outpatient (BNVA) | payer MEDICARE, OTHER, SELFPAY | PROVIDERS: PCP Internal Medicine; Visit Provider Nurse Practitioner Family | DX: Z51.81 Encounter for therapeutic drug level monitoring (principal); F11.20 Opioid dependence, uncomplicated | CPT/HCPCS: 99211 ==

== ENCOUNTER 2022-07-25 07:54 | Outpatient (REF) | payer MEDICARE, OTHER, SELFPAY | END 2022-07-25 07:55 | disposition home or self-care (01) | LOC: HO.SH 07:54 | PROVIDERS: Visit Provider Internal Medicine | DX: Z01.118 Encounter for examination of ears and hearing with other abnormal findings (principal); H90.3 Sensorineural hearing loss, bilateral | CPT/HCPCS: 92557; 92567 ==

== ENCOUNTER 2022-08-08 16:03 | Outpatient (REF) | payer MEDICARE, OTHER, SELFPAY ==
[2022-08-08 19:11] LABS: Amphetamine Screen Urine Not Detected (Not Detect); Barbiturates, Urine Not Detected (Not Detect); Benzodiazepines Screen Urine Not Detected (Not Detect); Cannabinoid Screen Urine Not Detected (Not Detect); Cocaine Screen Urine Not Detected (Not Detect); Fentanyl, urine POSITIVE (Not Detect); Opiate Screen Urine POSITIVE (Not Detect); Phencyclidine Screen Urine Not Detected (Not Detect)
== END 2022-08-08 16:04 | disposition home or self-care (01) ==
LOC: HO.LAB 16:03
PROVIDERS: PCP Internal Medicine; Visit Provider Internal Medicine
DX: Z13.89 Encounter for screening for other disorder (principal); G89.29 Other chronic pain
CPT/HCPCS: 80307

== ENCOUNTER 2022-08-30 11:19 | Inpatient (IN) | payer MEDICARE, OTHER, SELFPAY ==
[2022-08-16 11:58] VITALS: BMI 29.8
--- NOTE | 2022-08-18 08:55 | P.CONAN_ITS ---
Documented by User: Anjali Krueger NP 08/24/22 14:28 HPI - Anesthesia Eval Consult details Narrative: 71yo M for Open Colostomy Closure, 08/30/22 s/p ostomy revision 05/2022 with GA-ETT 7.5. *ProVu hyper 3 blade for intubation d/t patient's hx cervical spine issues* PMFSH Active Problems Active Problems: All Active Problems (Updated 08/16/22 @ 11:37 by Alda French RN) Right bundle branch block (RBBB) determined by electrocardiography (Acute) Pneumonia (Acute) Bandemia (Acute) Fusobacterium infection (Acute) Anaerobic bacteremia (Acute) Acute respiratory failure with hypoxia (Acute) Opioid contract exists (Acute) Hypertensive heart disease (Acute) PAC (premature atrial contraction) (Acute) BPH (benign prostatic hyperplasia) (Acute) Hypothyroidism (Acute) Hard of hearing (Acute) GERD (gastroesophageal reflux disease) (Acute) Restless leg syndrome (Acute) Bilateral primary osteoarthritis of knee (Acute) Chronic pain syndrome (Acute) Failed back syndrome of cervical spine (Acute) Past Medical History Medical History Bilateral primary osteoarthritis of knee BPH (benign prostatic hyperplasia) Chronic pain syndrome Failed back syndrome of cervical spine GERD (gastroesophageal reflux disease) Hard of hearing HTN (hypertension) Hypertensive heart disease Hypothyroidism Neck pain PAC (premature atrial contraction) Parkinsons Restless leg syndrome Upper back pain, chronic Family History Family history of problems with anesthesia: No Surgical History Surgical History H/O exploratory laparotomy (05/18/22) H/O neck surgery History of foot surgery History of surgery (05/29/22) History of total left knee replacement (TKR) Hx laparoscopic cholecystectomy Hx of colonoscopy Hx of fusion of cervical spine Hx of hernia repair History of Problems with Anesthesia: No Social History Social History Household Members: Spouse Household Members Other:: 1 Housing: House Are you a primary career development director to a significant other at home: No Do you presently have visiting nurse or other home services: No Alcohol intake: current Alcohol intake frequency: holidays/special occasions only Patient Tobacco Use Status: Former Tobacco user Quit Date: 1999 Tobacco use type: Cigarette e-Cigarette/Vaping Use: Former Use Second Hand Smoke Exposure: No Substance Use Type: Marijuana and Prescription Drugs Advance Directives Date on File: 01/19/20 service: No Current occupational status: retired Meds Allergies Allergy/AdvReac Type Severity Reaction Status Date / Time Sulfa (Sulfonamide Allergy Severe HIVES/DIFF. Verified 07/21/22 10:02 Antibiotics) BREATHING vancomycin [VANCOMYCIN] Allergy Severe SHORTNESS Verified 07/21/22 10:02 OF BREATH cephalexin [CEPHALEXIN] Allergy Intermediate SHORTNESS Verified 07/21/22 10:02 OF BREATH DAIRY PRODUCTS AdvReac Intermediate GI Uncoded 06/23/22 11:13 UPSET/DIARRHEA Home Medications Medication Instructions Recorded Confirmed Last Taken Type carbidopa 25 mg-levodopa 100 mg 1 tab PO TID 01/21/20 08/30/22 08/30/22 04:30 History tablet diclofenac sodium 1 % topical gel 2 g topical QID PRN Inflammation 01/21/20 08/16/22 Unknown History finasteride 5 mg tablet 5 mg PO DAILY 01/21/20 08/16/22 05/17/22 History levothyroxine 50 mcg tablet 50 mcg PO DAILY@0600 01/21/20 08/16/22 05/17/22 History lidocaine 5 % topical patch 1 patch topical BID 01/21/20 08/16/22 05/17/22 History multivitamin (Daily Multi-Vitamin 1 tab PO DAILY 01/21/20 08/16/22 05/17/22 History tablet) tamsulosin 0.4 mg capsule 0.4 mg PO BID 01/21/20 08/16/22 05/17/22 History ondansetron HCl 4 mg tablet 4 mg PO DAILY PRN Nausea 09/15/20 08/16/22 Unknown History pantoprazole 40 mg tablet,delayed 40 mg PO DAILY@0630 09/15/20 08/16/22 05/17/22 History release ropinirole 3 mg tablet 12 mg PO BEDTIME 10/21/20 08/16/22 05/16/22 History fluticasone propionate 50 1 spray intranasal BID 10/27/20 08/16/22 05/17/22 History mcg/actuation nasal spray,suspension donepezil 10 mg tablet 10 mg PO BEDTIME 10/07/21 08/16/22 05/17/22 History duloxetine 60 mg capsule,delayed 60 mg PO DAILY 10/07/21 08/16/22 05/17/22 History release memantine 10 mg tablet 10 mg PO BID 10/07/21 08/16/22 05/17/22 History pregabalin 300 mg capsule 300 mg PO BID 10/07/21 08/16/22 05/17/22 History amantadine HCl 100 mg tablet 1 tab PO TID 04/12/22 08/16/22 05/17/22 History buspirone 10 mg tablet 1 tab PO BID PRN Anxiety 04/12/22 08/16/22 05/17/22 History cholecalciferol (vitamin D3) 50 50 mcg PO DAILY 04/12/22 08/16/22 05/17/22 History mcg (2,000 unit) tablet (Vitamin D3) lisinopril 20 mg tablet 1 tab PO DAILY 04/12/22 08/16/22 05/17/22 History ropinirole 3 mg tablet 6 mg PO DAILY@1200 04/12/22 08/16/22 05/17/22 History trazodone 100 mg tablet 3 tab PO BEDTIME PRN insomnia 04/12/22 08/16/22 05/16/22 History bisacodyl 10 mg rectal suppository 10 mg IN DAILY PRN Constipation 06/09/22 08/16/22 Unknown History (Dulcolax (bisacodyl)) tizanidine 4 mg tablet 4 mg PO TID PRN muscle spasticity 08/16/22 08/16/22 Unknown History Exam Exam Date and Time: August 18, 2022 0855 Height,Weight and Vital Signs: Height 5 ft 7 in Weight 86.183 kg Pertinent Lab Results Pertinent Lab Results: Laboratory Tests 07/18/22 07/18/22 11:55 11:55 WBC 5.7 Hgb 13.7 L D Hct 42.0 D Plt Count 198 D Sodium 144 Potassium 4.0 Chloride 102 Carbon Dioxide 28 BUN 15 Creatinine 0.72 Narrative Narrative: EKG 05/2022 Vent. Rate : 075 BPM ? ? Atrial Rate : 075 BPM ?? P-R Int : 156 ms? QRS Dur : 140 ms ? ? QT Int : 398 ms ? ? ? P-R-T Axes : 034 -11 011 degrees ?? QTc Int : 444 ms ? Normal sinus rhythm Right bundle branch block Abnormal ECG When compared with ECG of 12-APR-2022 10:26, QT has shortened Assessment and Plan Assessment Anesthesia Assessment: Chart Reviewed Final Anesthetic Review Family History of Problems with Anesthesia: No History of Problems with Anesthesia: No Documented by User: Pauline Martinez MD 08/30/22 09:07 ON LICENSE OF [facility] Past Medical History Medical History Bilateral primary osteoarthritis of knee BPH (benign prostatic hyperplasia) Chronic pain syndrome Failed back syndrome of cervical spine GERD (gastroesophageal reflux disease) Hard of hearing HTN (hypertension) Hypertensive heart disease Hypothyroidism Neck pain PAC (premature atrial contraction) Parkinsons Restless leg syndrome Upper back pain, chronic Surgical History Surgical History H/O exploratory laparotomy (05/18/22) H/O neck surgery History of foot surgery History of surgery (05/29/22) History of total left knee replacement (TKR) Hx laparoscopic cholecystectomy Hx of colonoscopy Hx of fusion of cervical spine Hx of hernia repair Social History Social History Household Members: Spouse Household Members Other:: 1 Housing: House Are you a primary career development director to a significant other at home: No Do you presently have visiting nurse or other home services: No Alcohol intake: current Alcohol intake frequency: holidays/special occasions only Patient Tobacco Use Status: Former Tobacco user Quit Date: 1999 Tobacco use type: Cigarette e-Cigarette/Vaping Use: Former Use Second Hand Smoke Exposure: No Substance Use Type: Marijuana and Prescription Drugs Advance Directives Date on File: 01/19/20 service: No Current occupational status: retired Meds Allergies Allergy/AdvReac Type Severity Reaction Status Date / Time Sulfa (Sulfonamide Allergy Severe HIVES/DIFF. Verified 07/21/22 10:02 Antibiotics) BREATHING vancomycin [VANCOMYCIN] Allergy Severe SHORTNESS Verified 07/21/22 10:02 OF BREATH cephalexin [CEPHALEXIN] Allergy Intermediate SHORTNESS Verified 07/21/22 10:02 OF BREATH DAIRY PRODUCTS AdvReac Intermediate GI Uncoded 06/23/22 11:13 UPSET/DIARRHEA Home Medications Medication Instructions Recorded Confirmed Last Taken Type carbidopa 25 mg-levodopa 100 mg 1 tab PO TID 01/21/20 08/30/22 08/30/22 04:30 History tablet diclofenac sodium 1 % topical gel 2 g topical QID PRN Inflammation 01/21/20 08/16/22 Unknown History finasteride 5 mg tablet 5 mg PO DAILY 01/21/20 08/16/22 05/17/22 History levothyroxine 50 mcg tablet 50 mcg PO DAILY@0600 01/21/20 08/16/22 05/17/22 History lidocaine 5 % topical patch 1 patch topical BID 01/21/20 08/16/22 05/17/22 History multivitamin (Daily Multi-Vitamin 1 tab PO DAILY 01/21/20 08/16/22 05/17/22 History tablet) tamsulosin 0.4 mg capsule 0.4 mg PO BID 01/21/20 08/16/22 05/17/22 History ondansetron HCl 4 mg tablet 4 mg PO DAILY PRN Nausea 09/15/20 08/16/22 Unknown History pantoprazole 40 mg tablet,delayed 40 mg PO DAILY@0630 09/15/20 08/16/22 05/17/22 History release ropinirole 3 mg tablet 12 mg PO BEDTIME 10/21/20 08/16/22 05/16/22 History fluticasone propionate 50 1 spray intranasal BID 10/27/20 08/16/22 05/17/22 History mcg/actuation nasal spray,suspension donepezil 10 mg tablet 10 mg PO BEDTIME 10/07/21 08/16/22 05/17/22 History duloxetine 60 mg capsule,delayed 60 mg PO DAILY 10/07/21 08/16/22 05/17/22 History release memantine 10 mg tablet 10 mg PO BID 10/07/21 08/16/22 05/17/22 History pregabalin 300 mg capsule 300 mg PO BID 10/07/21 08/16/22 05/17/22 History amantadine HCl 100 mg tablet 1 tab PO TID 04/12/22 08/16/22 05/17/22 History buspirone 10 mg tablet 1 tab PO BID PRN Anxiety 04/12/22 08/16/22 05/17/22 History cholecalciferol (vitamin D3) 50 50 mcg PO DAILY 04/12/22 08/16/22 05/17/22 History mcg (2,000 unit) tablet (Vitamin D3) lisinopril 20 mg tablet 1 tab PO DAILY 04/12/22 08/16/22 05/17/22 History ropinirole 3 mg tablet 6 mg PO DAILY@1200 04/12/22 08/16/22 05/17/22 History trazodone 100 mg tablet 3 tab PO BEDTIME PRN insomnia 04/12/22 08/16/22 05/16/22 History bisacodyl 10 mg rectal suppository 10 mg IN DAILY PRN Constipation 06/09/22 08/16/22 Unknown History (Dulcolax (bisacodyl)) tizanidine 4 mg tablet 4 mg PO TID PRN muscle spasticity 08/16/22 08/16/22 Unknown History Exam Airway Mallampati Class: III TM Dist: >3cm Neck ROM: Limited Loose/Missing/Broken Teeth: No Heart: RRR Lungs: CTA Assessment and Plan Assessment Anesthesia Assessment: Anesthesia Plan Discussed Final Anesthetic Review NPO: Yes ASA Class: III Final Preanesthetic Review: Meds/Allgs Chart Reviewed, Consent Obtained/Reviewed and Anes Risks/Benef Reviewed Patient Risk: Intermediate Procedure Risk: Intermediate Anesthetic Plan Anesthetic Plan: GA Disposition: Standard PACU
[2022-08-30] VITALS (23 sets, daily range): BP systolic 96–143; BP diastolic 38–89; PULSE 67–87; RESP 14–18; TEMP 36–36.9; O2SAT 90–98
[2022-08-30] MEDS: Lactated Ringers 1,000 ML 100 ML IVCONT (07:01)
--- NOTE | 2022-08-30 07:13 | MHC.SHP ---
Pre-Procedural Eval Section A Date of Service: 08/30/22 The patient is an INPATIENT: No Changes since office visit: Yes Patient answered all questions; No Cold of Flu in the past 2 weeks, No New Medical Problems and No Changes in Medication The History & Physical has been completed within 30 days and I have reviewed it.: No Section B Chief Complaint: Diverticulosis of intestine, part unspecified, wit Details of Present Illness: previous perforated sigmoid diverticulitis with fecal peritonitis Relevant Family History (Specify if Yes): No Relevant Social History: None Present Medications: see Short Stay Collaborative assessment Medical History: Significant History (RBBB, PAC, BPH, chronic neck pain) History of Previous Operations: Relevant previous surgery/procedure and date(s) Allergies: Allergies Allergy/AdvReac Type Severity Reaction Status Date / Time Sulfa (Sulfonamide Allergy Severe HIVES/DIFF. Verified 07/21/22 10:02 Antibiotics) BREATHING vancomycin [VANCOMYCIN] Allergy Severe SHORTNESS Verified 07/21/22 10:02 OF BREATH cephalexin [CEPHALEXIN] Allergy Intermediate SHORTNESS Verified 07/21/22 10:02 OF BREATH DAIRY PRODUCTS AdvReac Intermediate GI Uncoded 06/23/22 11:13 UPSET/DIARRHEA Review of Systems Sugical H&P ROS: Negative: Constitution, Cardiovascular, Respiratory, Neurological, Psychiatric, Hem-Onc, Allergic/Immunologic, Gastrointestinal, Genitourinary, Musculoskeletal, Integumentary, Endocrine and Eyes/Ears/Nose/Throat Exam Surgical H&P Exam: Normal: HEENT, Normal: Heart, Normal: Lungs, Normal: Extremities, Normal: Skin and Normal: Neurological and Significant Findings: Abdomen (ostomy in the left lower quadrant) Plan Diagnosis/Plan: Unchanged I have reviewed the history and physical and performed a pertinent physical examination on my patient. No changes have occurred unless specified. Time Spent With Patient Time: Total time managing care of this patient today ____ minutes.
--- NOTE | 2022-08-30 10:55 | W.PM.OPN ---
Operative Note Operative Note Date of Service: 08/30/22 Narrative: Preoperative diagnosis: Perforated sigmoid diverticulitis status post Milla procedure Postoperative diagnosis: same Procedure: closure of colostomy Surgeon: Aric Mcneill MD Gaming Table Operator: Keli Zelaya PA-C Anesthesia: general endotracheal Indications for procedure: 71-year-old male patient presenting with a previous history of perforated sigmoid diverticulitis status post Milla procedure now returning for closure of his end colostomy. Operative findings: No evidence of residual abscess. Significant adhesions to anterior abdominal wall from prior surgery. Specimen: Colostomy, rectal stump Estimated blood loss: 25 mL Complications: none Procedure details: patient was brought to the OR placed in a supine position. After administering general anesthesia he was placed in lithotomy position. A Lerner catheter was inserted. Perineum and abdominal skin prep was then performed. The patient was then draped in a sterile fashion. A surgical time-out was called the consent confirmed. Patient received preoperative antibiotics and Venodyne boots were in place. The patient's previous midline incision was reopened using a 15 blade. Incision was carried out through subcutaneous tissue through linea alba into the peritoneum. Adhesions were identified to the anterior abdominal wall. Fascia was grasped with Jeff clamps and a delicate extensive lysis of adhesion was then performed. The anterior abdominal wall was then freed from bowel and a Bookwalter retractor placed. The patient was placed in a Trendelenburg position. Rectal stump was identified by the previously marked Prolene sutures. This was then dissected free from the surrounding scar tissue. Dissection was continued down along the rectal stump and the mesentery divided using the LigaSure. The distal rectal stump was then divided using an Endo ALIYA curved stapler. Attention was then directed to the colostomy. Elliptical incision oriented transversely was then created around the colostomy. This was previously sutured closed using a running nylon suture. the dissection was continued down around the colostomy and passed the fascia and peritoneum using electrocautery. An enterotomy was created in the distal colostomy and a EEA Sizer placed. This was dilated up to a 28 easily. A 28 EEA stapler was then obtained. a pursestring clamp was then applied and a Prolene suture with a Cesar needle placed through the clamp. The bowel was divided above the clamp. The EEA anvil was then placed within the bowel in the pursestring tied off. The EEA Sizer was then used to dilate the rectal stump. This easily passed into the stapled stump. The 28 EEA stapler was then inserted through the anus and positioned at the staple line. The spike was passed through the staple line and connected to the anvil and proximal descending colon. The EEA stapler was then fired. Several 3-0 Surgilon sutures were placed in Lembert fashion to reinforce the anastomosis. The anastomosis was then tested with air with the pelvis filled with saline solution. No leak could be identified. The abdomen was then thoroughly irrigated with Irricept followed by saline solution. Wounds were checked for hemostasis. The anastomosis was found to be under no tension with no twist of the mesentery. Fascia was closed at the ostomy using a running 0 Polysorb suture. Subcutaneous tissue was closed using interrupted 3-0 Polysorb sutures and skin closed with skin chris. Fascia was closed at the midline using [id number] Polysorb sutures. Daniel's fascia and dermis reapproximated using interrupted 3-0 Polysorb sutures. Skin was closed using skin chris. Sterile dressings were then applied. The patient tolerated the procedure well. Sponge, instrument, and needle counts were reported as correct. The patient was transferred to PACU in stable condition.
--- NOTE | 2022-08-30 11:04 | PHA.MEDREC ---
Pharmacy Consult ? Medication Reconciliation Pharmacy has completed the medication reconciliation. COMPLETED BY RN REVIEWED BY PHARMACY JEMAL
--- OUTSIDE RECORDS SUMMARY | 2022-08-30 11:23 | XMS_ITS | Patient Health Record ---
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 Name Role Phone Black Seymour Unavailable [phone] Aly Gutierrez Unavailable [phone] PROBLEMS Type Condition ICD9-CM Code [id number] Code Onset Dates Condition Status W/U Status Risk SNOMED Code Notes Problem Plantar fascial fibromatosis M72.2 confirmed 62924524 ALLERGIES Allergen (clinical drug ingredient) Drug/Non Drug Allergy documented on EMR Reaction Allergy Type Onset Date Status Keflex itching, SOB Drug Allergy Acti ve Lactose (Allergy) Severe Diarrhea Drug Allergy Active vancomycin Vancomycin HCl(ND Code:[address]-8 0) Unknown Drug Allergy Active sulfamethoxazole / trimethoprim Bactrim(ND Code:[address]-9 1) Unknown Drug Allergy Active ENCOUNTERS from 1950 to 2022-08-30 Encounter Location Date Provider Diagnosis [address] [address] Mar, Black Seymour [address] [address] Mar, Black Seymour Plantar fascial fibromatosis M72.2 ; Pain in left foot M79.672 ; Calcaneal spur, left foot M77.32 ; Other myositis of left foot M60.872 and Bursitis of left foot M77.[address] [address] Oct, Black Dawn Non-pressure chronic ulcer of other part of right foot limited to breakdown of skin L97.[address] [address] Sep, Black Dawn Non-pressure chronic ulcer of other part of right foot with fat layer exposed L97.[address] [address] Sep, Black Dawn Ingrowing nail L60.[address] [address] Jun, Black Dawn [facility] [address] [address] Jun, Black Dawn Abscess of toe, right L02.611 and Cellulitis of right toe L03.[address] [address] Jan, Black Dawn Abscess of toe, right L02.611 and Cellulitis of right toe L03.[address] [address] Oct, Black Dawn Non-pressure chronic ulcer of other part of right foot limited to breakdown of skin L97.[address] [address] Sep, Black Dawn Non-pressure chronic ulcer of other part of right foot with fat layer exposed L97.[address] [address] Sep, Black Dawn Ingrowing nail L60.[address] [address] Sep, Black Dawn Ingrowing nail L60.[address] [address] Jul, Black Dawn Abscess of toe, right L02.611 [facility] [address] [address] Jul, Black Dawn [address] [place] [address] Jul, Black Dawn [facility] [address] [address] Jul, Black Dawn Abscess of toe, left L02.612 and Cellulitis of left toe L03.032 [facility] [address] [address] Nov, Black Dawn [facility] [address] Sep, Black Dawn [facility] [address] August, Black Dawn Abscess of toe, right L02.[address] [address] Oct, Black Dawn Paronychia 681.[address] [address] Jul, Black Dawn Paronychia 681.11 and [facility] - Toes 681.[address] [facility] [address] Apr, Black Dawn Paronychia 681.11 and [facility] - Toes 681.[address] [facility] [address] Apr, Black Dawn [address] [address] Mar, [address] [address] Mar, [address] [address] Mar, Black Dawn Paronychia 681.11 and Celluitis - Toes 681.10 IMMUNIZATIONS Vaccine Route Administration Date Status COVID-19 [employer] [facility]Aldo Unknown Feb Administered Influenza Unknown Jan 16, 2017 Administered SOCIAL HISTORY Tobacco Use: Social History Observation Description Date Details (start date - stop date) Former Smoker Sex Assigned At : Social History Observation Description Sex Assigned At Unknown Alcohol Screen Question Answer Notes Did you have a drink contain ing alcohol in the past year? Yes Points 4 Interpretation Positive How often did you have 6 or more drinks on one occasion in the past year? Monthly (2 points) How often did you have a dri nk containing alcohol in the past year? Two to four times a month (2 points) Tobacco Use/Smoking Question Answer Notes Additional Findings: Tobacco Non-User Current no n-smoker Are you a: former smoker When did you stop smoking? 1999 Tobacco use other than smoking: Question Answer Notes Are you an other tobacco user? No REASON FOR REFERRAL from 1950 to 2022-08-30 Diagnosis 1 Paronychia (681.11) Diagnosis 2 Celluitis - Toes (68 1.10) Referring Provider First Name Enrrique Referring Provider Last Name Irvin Referred [facility] Joel Referred Provider Black Seymour Referred Address [address] [facility] [place],[address] Referred Provider Specialty Podiatry Referral Priority Routine Diagnosis 1 Paronychia (681.11) Diagnosis 2 Celluitis - Toes (68 1.10) Diagnosis 3 Abscess of toe, righ t (L02.611) Referring Provider First Name Black Referring Provider Last Name Dawn Referring Provider Specialty Podiatry Referred [facility] Joel Referred Provider Black Seymour Referred Address [address] [place],[address] Referred Provider Specialty Podiatry Referral Priority Routine VITAL SIGNS from 1950 to 2022-08-30 Height 5 ft 9 in in Mar, Weight 202 lbs Mar, BMI 29.83 kg/m2 Mar, Heart Rate 97 /min Jun, Blood pressure systolic 118 mm Hg Mar, Blood pressure diastolic 76 mm Hg Mar, MEDICATIONS Medication SIG (Take, Route, Frequency, Duration) Notes Start Date End Date Status Dilaudid 2 MG/ML 1 ml as needed Injection every 4 hrs Not-Taking Azithromycin 250 MG 2 tablets on the first day, then 1 tablet daily for 4 days Orally Once a day for 5 day(s) Active Carbidopa-Levodopa A ctive rOPINIRole HCl 4 MG 1 tablet 1 to 3 hour s before bedtime Orally Once a day for 30 day(s) Not-Taking Lidocaine Active Morphine 30mg 1 tab by mouth four times a day Not-Taking Ketamine HCl Active Finasteride 5 MG 1 tablet Orally Once a day Active Stool Softener Activ e Tylenol Arthritis Pain Active Cymbalta Active ibuprofen Active Multivitamin Active diazePAM Not-Taking Morphine Sulfate ER 60 MG 1 tablet Orall y every 12 hrs Not-Taking oxyCODONE HCl Not-Ta cheng Amantadine HCl Activ e Lisinopril Active Butrans Not-Taking Synthroid .05 MCG 1 tablet on an empty stomach in the morning Orally Once a day Not-Taking Valium 5 MG 1 tablet as needed Orally Twice a day Not-Taking VoLumen Not-Taking Prochlorperazine Act dio Levothyroxine Sodium 50 MCG 1 tablet on an empty stomach in the morning Orally Once a day for 30 day(s) Active AndroGel Not-Taking Pantoprazole Sodium 40 MG 1 tablet Orall y Once a day for 30 day(s) Active dilTIAZem HCl ER Beads 240 MG 1 capsule Orally Once a day for 30 day(s) Active Tamsulosin HCl Activ e Diclofenac Sod-Occlusive Dress 1 % as directed Transdermal Active MiraLax Not-Taking Protonix 40 MG 1 tablet Orally Once a day Not-Taking REASON FOR VISIT No Information MEDICAL (GENERAL) HISTORY Type Description Date Medical [...] knee replacement 01/2016 Surgical History Back surgery MENTAL STATUS No Information ASSESSMENTS Encounter Date Diagnosis Assessment Notes Treatment Notes Treatment Clinical Notes Mar, Plantar fascial fibromatosis (ICD-10 - M72.2) Patient Educated with: HEEL CORD STRETCHES.pdf (HEEL CORD STRETCHES.pdf) Patient Educated with: RICE THERAPY.pdf (RICE THERAPY.pdf) Mar, Pain in left foot (ICD-10 - M79.672) Mar, Calcaneal spur, left foot (ICD-10 - M77.32) Mar, Other myositis of left foot (ICD-10 - M60.872) Mar, Bursitis of left foot (ICD-10 - M77.52) Oct, Non-pressure chronic ulcer of other part of right foot limited to breakdown of skin (ICD-10 - L97.511) Sep, Non-pressure chronic ulcer of other part of right foot with fat layer exposed (ICD-10 - L97.512) Sep, Ingrowing nail (ICD-10 - L60.0) Jun, Abscess of toe, right (ICD-10 - L02.611) Jun, Cellulitis of right toe (ICD-10 - L03.031) Jan, Abscess of toe, right (ICD-10 - L02.611) Jan, Cellulitis of right toe (ICD-10 - L03.031) Oct, Non-pressure chronic ulcer of other part of right foot limited to breakdown of skin (ICD-10 - L97.511) Sep, Non-pressure chronic ulcer of other part of right foot with fat layer exposed (ICD-10 - L97.512) Sep, Ingrowing nail (ICD-10 - L60.0) Sep, Ingrowing nail (ICD-10 - L60.0) Jul, Abscess of toe, right (ICD-10 - L02.611) Jul, Abscess of toe, left (ICD-10 - L02.612) Jul, Cellulitis of left toe (ICD-10 - L03.032) August, Abscess of toe, right (ICD-10 - L02.611) Oct, Paronychia (ICD9-CM - 681.11) Jul, Paronychia (ICD9-CM - 681.11) Recurrent Jul, Celluitis - Toes (ICD9-CM - 681.10) Apr, Paronychia (ICD9-CM - 681.11) Apr, Celluitis - Toes (ICD9-CM - 681.10) Mar, Paronychia (ICD9-CM - 681.11) Mar, Celluitis - Toes (ICD9-CM - 681.10) PLAN OF TREATMENT Treatment Notes Assessment Notes Clinical Notes Plantar fascial fibromatosis Patient Edu cated with: HEEL CORD STRETCHES.pdf (HEEL CORD STRETCHES.pdf) Patient Educated with: RICE THERAPY.pdf (RICE THERAPY.pdf) Pending Tests Test Name Order Date X ray : Foot, left 3V 2021-03-18 [id number]- Debride <25 sq cm 2019-10-21 [id number] SKIN/TISSUE 2019-10-07 [id number] 2019-09-23 [id number] I&D ABSCESS- SIMPLE,SINGLE 2019-06 [id number] I&D ABSCESS- SIMPLE,SINGLE 2019-01 58753- Debride <25 sq cm 2017-10-23 [id number] SKIN/TISSUE 2017-10-09 [id number] 2017-09-25 [id number] Plate 2017-09-18 [id number] I&D ABSCESS- SIMPLE,SINGLE 2016-07 [id number] I&D ABSCESS- SIMPLE,SINGLE 2016-07 [id number] I&D ABSCESS- SIMPLE,SINGLE 2015-08 61427 I&D ABSCESS- SIMPLE,SINGLE 2014-10 30868 I&D ABSCESS- SIMPLE,SINGLE 2014-07 34827 I&D ABSCESS- SIMPLE,SINGLE 2014-04 [id number] I&D ABSCESS- SIMPLE,SINGLE 2014-03 Referrals Referral Date Details [address] [place], [address], [email or web address] [address] [place], [address], [email or web address] Insurance Providers Payer Name Payer Address Payer Phone Insured Name Patient Relationship to Insured Coverage Start Date Coverage End Date Subscriber Number Group Number [employer] [address] [facility] [address] [phone] Jose Eduardo Rivas Self - patient is the insured [id number] [employer] [address] [facility] [address] Jose Eduardo Rivas Self - patient is the insured [id number]
[2022-08-30] MEDS: HYDROmorphone HCl 0.5 MG/0.5 ML SYRINGE 0.25 MG IVPUSH ×3 (11:32→12:38)
[2022-08-30] MEDS: fentaNYL citrate/PF 100 MCG/2 ML VIAL 25 MCG IVPUSH ×2 (11:56→12:25)
[2022-08-30] MEDS: fentaNYL citrate/PF 100 MCG/2 ML VIAL 50 MCG IVPUSH (12:16)
[2022-08-30] MEDS: oxyCODONE HCl Immed Release 5 MG TABLET PO ×3 (12:38→22:12)
[2022-08-30] MEDS: Dextrose 5 % and Lactated Ring 1,000 ML 125 ML IVCONT (13:54)
[2022-08-30] MEDS: HYDROmorphone HCl 1 MG/ML SYRINGE 0.5 MG IVPUSH ×3 (14:16→23:01)
[2022-08-30] MEDS: Acetaminophen 1,000 MG/100 ML PIGGYBACK 400 MG IV ×2 (14:51→19:48)
[2022-08-30] MEDS: Carbidopa/Levodopa 25/100 TABLET 1 TAB PO ×2 (15:19→21:20)
--- NOTE | 2022-08-30 16:38 | HO.PM.IMCN ---
History of Present Illness Data of Consult Service Date: 08/30/22 Requesting physician: Aric Mcneill Primary Care Provider: Enrrique Bryan MD [facility] Reason for consult: Medical management post reversal of colostomy 69-year-old gentleman with past medical history significant for chronic pain syndrome, hypertension, hypothyroidism, Parkinson's disease, restless leg syndrome, admitted for elective closure of colostomy with underlying history of perforated sigmoid diverticulitis status post Milla procedure, at present patient is feeling better, abdominal pain is bearable, receiving IV Tylenol, feeling hungry requesting for food denies nausea vomiting, no chest pain, no palpitation, no lightheadedness, no dizziness, denies shortness of breath, not on home oxygen, finger oximetry 94% on 2 L. currently vitals are stable . Review of Systems Review of Systems: General no headache, no dizziness, no fever chills. CVS no chest pain, no palpitation. Respiratory no cough, no sob. Gastrointestinal no nausea, no vomiting, no abdominal pain. skin no rash. Yes all other systems are reviewed and are negative [facility] Medical History Bilateral primary osteoarthritis of knee BPH (benign prostatic hyperplasia) Chronic pain syndrome Failed back syndrome of cervical spine GERD (gastroesophageal reflux disease) Hard of hearing HTN (hypertension) Hypertensive heart disease Hypothyroidism Neck pain PAC (premature atrial contraction) Parkinsons Restless leg syndrome Upper back pain, chronic Surgical History H/O exploratory laparotomy (05/18/22) H/O neck surgery History of foot surgery History of surgery (05/29/22) History of total left knee replacement (TKR) Hx laparoscopic cholecystectomy Hx of colonoscopy Hx of fusion of cervical spine Hx of hernia repair Social History Household Members: Spouse Household Members Other:: 1 Housing: House Are you a primary janitor caretaker to a significant other at home: No Do you presently have visiting nurse or other home services: No Alcohol intake: current Alcohol intake frequency: holidays/special occasions only Patient Tobacco Use Status: Former Tobacco user Quit Date: 1999 Tobacco use type: Cigarette e-Cigarette/Vaping Use: Former Use Second Hand Smoke Exposure: No Use of substances other than those prescribed or required for medical reasons: No Substance Use Type: Marijuana and Prescription Drugs Have you been hit, kicked, punched, or otherwise hurt by someone within the past year? If so, by whom?: No Are you DNR?: No Advance Directives: Yes Advance Directives Information Provided: No Advance Directives on File: Yes Advance Directives Date on File: 01/19/20 Recently lost weight without trying: No Poor oral hygiene: No service: No Current occupational status: retired Meds Allergies Allergy/AdvReac Type Severity Reaction Status Date / Time Sulfa (Sulfonamide Allergy Severe HIVES/DIFF. Verified 07/21/22 10:02 Antibiotics) BREATHING vancomycin [VANCOMYCIN] Allergy Severe SHORTNESS Verified 07/21/22 10:02 OF BREATH cephalexin [CEPHALEXIN] Allergy Intermediate SHORTNESS Verified 07/21/22 10:02 OF BREATH [employer] AdvReac Intermediate GI Uncoded 06/23/22 11:13 UPSET/DIARRHEA Active Medications: Current Medications Buspirone HCl (Buspirone Hcl 10 Mg Tablet) 10 mg PO BID PRN PRN Reason: Anxiety Carbidopa/Levodopa (Carbidopa/Levodopa 25/100 Tablet) 1 tab PO TID [facility] Last Admin: 08/30/22 15:19 Dose: 1 tab Fluticasone Propionate (Fluticasone Propionate Nasal 16 Gm Palmer) 1 spray NOSTRIL-B BID [facility] Hydromorphone HCl (Hydromorphone Hcl 1 Mg/Ml Syringe) 0.5 mg IVPUSH Q3H PRN; Protocol PRN Reason: Pain, Severe (Pain Scale 7-10) Last Admin: 08/30/22 14:16 Dose: 0.5 mg Acetaminophen (Ofirmev) 1,000 mg in 100 mls @ 400 mls/hr IV Q6H [facility] Last Infusion: 08/30/22 15:18 Dose: Infused Dextrose/Lactated Ringer's (D5lr) 1,000 mls @ 100 mls/hr IVCONT .Q10H [facility] Last Admin: 08/30/22 13:54 Dose: 125 mls/hr Levothyroxine Sodium (Levothyroxine Sodium 50 Mcg Tablet) 50 mcg PO DAILY@0600 [facility] Lidocaine (Lidocaine 4 % Patch Adh..Patch) 1 patch TRANSDERMA BID PRN PRN Reason: Pain, Mild (Pain Scale 1-3) Naloxone HCl (Naloxone Hcl Nasal 4 Mg Palmer) 4 mg NOSTRILALT Q2M PRN PRN Reason: opioid overdose Ondansetron HCl (Ondansetron Hcl 4 Mg/2 Ml Vial) 4 mg IVPUSH Q8H PRN PRN Reason: Nausea and Vomiting Oxycodone HCl (Oxycodone Hcl Immed Release 5 Mg Tablet) 5 mg PO Q4H PRN PRN Reason: Pain, Moderate(Pain Scale 4-6) Pharmacy Consult (Consult Rx Perform Med Rec) 1 each MISCELLANE ONCE PRN PRN Reason: Consult order Sodium Chloride (0.9 % Sodium Chloride Flush 3 Ml Syringe) 3 ml [facility] Home Medications Medication Instructions Recorded Confirmed Last Taken Type carbidopa 25 mg-levodopa 100 mg 1 tab PO TID 01/21/20 08/30/22 08/30/22 04:30 History tablet diclofenac sodium 1 % topical gel 2 g topical QID PRN Inflammation 01/21/20 08/16/22 Unknown History finasteride 5 mg tablet 5 mg PO DAILY 01/21/20 08/16/22 05/17/22 History levothyroxine 50 mcg tablet 50 mcg PO DAILY@0600 01/21/20 08/16/22 05/17/22 History lidocaine 5 % topical patch 1 patch topical BID 01/21/20 08/16/22 05/17/22 History multivitamin (Daily Multi-Vitamin 1 tab PO DAILY 01/21/20 08/16/22 05/17/22 History tablet) tamsulosin 0.4 mg capsule 0.4 mg PO BID 01/21/20 08/16/22 05/17/22 History ondansetron HCl 4 mg tablet 4 mg PO DAILY PRN Nausea 09/15/20 08/16/22 Unknown History pantoprazole 40 mg tablet,delayed 40 mg PO DAILY@0630 09/15/20 08/16/22 05/17/22 History release ropinirole 3 mg tablet 12 mg PO BEDTIME 10/21/20 08/16/22 05/16/22 History fluticasone propionate 50 1 spray intranasal BID 10/27/20 08/16/22 05/17/22 History mcg/actuation nasal spray,suspension donepezil 10 mg tablet 10 mg PO BEDTIME 10/07/21 08/16/22 05/17/22 History duloxetine 60 mg capsule,delayed 60 mg PO DAILY 10/07/21 08/16/22 05/17/22 History release memantine 10 mg tablet 10 mg PO BID 10/07/21 08/16/22 05/17/22 History pregabalin 300 mg capsule 300 mg PO BID 10/07/21 08/16/22 05/17/22 History amantadine HCl 100 mg tablet 1 tab PO TID 04/12/22 08/16/22 05/17/22 History buspirone 10 mg tablet 1 tab PO BID PRN Anxiety 04/12/22 08/16/22 05/17/22 History cholecalciferol (vitamin D3) 50 50 mcg PO DAILY 04/12/22 08/16/22 05/17/22 History mcg (2,000 unit) tablet (Vitamin D3) lisinopril 20 mg tablet 1 tab PO DAILY 04/12/22 08/16/22 05/17/22 History ropinirole 3 mg tablet 6 mg PO DAILY@1200 04/12/22 08/16/22 05/17/22 History trazodone 100 mg tablet 3 tab PO BEDTIME PRN insomnia 04/12/22 08/16/22 05/16/22 History bisacodyl 10 mg rectal suppository 10 mg NE DAILY PRN Constipation 06/09/22 08/16/22 Unknown History (Dulcolax (bisacodyl)) tizanidine 4 mg tablet 4 mg PO TID PRN muscle spasticity 08/16/22 08/16/22 Unknown History Physical Exam Vital Signs and Narrative: Vital Signs: Last Vital Signs Temp 96.9 F 08/30/22 15:12 Pulse 68 08/30/22 15:12 Resp 18 08/30/22 15:12 BP 130/59 L 08/30/22 15:12 Pulse Ox 94 08/30/22 15:12 O2 Del Method Nasal Cannula 08/30/22 15:12 O2 Flow Rate 2.0 08/30/22 15:12 BMI result Body Mass Index 29.8 Const: Other: General resting comfortably in no acute distress. Neck supple no JVD. CVS regular rate rhythm, Respiratory lungs clear to auscultation, no respiratory distress, no wheeze, no rhonchi. Gastrointestinal abdomen soft, mild tenderness to palpation mid abd, Dressing in place, no abdominal distension, no guarding , no rigidity. Extremities noedema. Neuro nonfocal Skin no rash psych appropriate affect Results Labs Labs: Laboratory Results - last 24 hr 08/30/22 06:37 Blood Type O Negative Antibody Screen NEGATIVE Assessment and Plan (1) Hypothyroidism: Status: Acute (2) GERD (gastroesophageal reflux disease): Status: Acute (3) Restless leg syndrome: Status: Acute (4) Chronic pain syndrome: Status: Acute Plan status post reversal of end colostomy postoperative day 0 continue on clear liquid diet, continue IV fluids, IV Dilaudid and IV Tylenol and as needed oxycodone, good pain control further treatment plan as per General surgery wean oxygen as tolerated, follow CBC and BMP at a.m. hypothyroidism continue Synthroid. chronic pain pain/RLS on multiple medications,baclofen, duloxetine, Requip and pregabalin, on hold will resume Requip since patient has significant RLS Parksinon's disease/dementia continue carbidopan, amantadine and Aricept on hold. BPH proscar, and flomax on hold HTN diltiazem and lisinopril on hold follow blood pressure closely and resume medications. FRANCES not complaint with CPAP at baseline. DVT prophylaxis with compression boots. code status full code Thank you for allowing us to participate in the care of this patient. we will follow along with you Time Spent With Patient Time: Total time managing care of this patient today ____ minutes.
[2022-08-30] MEDS: rOPINIRole HCL 2 MG TABLET 12 MG PO (21:20)
[2022-08-30] MEDS: traZODone HCL 100 MG TABLET 300 MG PO (22:11)
[2022-08-31] MEDS: Acetaminophen 1,000 MG/100 ML PIGGYBACK 400 MG IV ×4 (01:10→19:40)
[2022-08-31] MEDS: Dextrose 5 % and Lactated Ring 1,000 ML 125 ML IVCONT (01:13)
[2022-08-31] MEDS: HYDROmorphone HCl 1 MG/ML SYRINGE 0.5 MG IVPUSH ×2 (02:12→08:32)
[2022-08-31 04:00] VITALS: BP 151/76; PULSE 82; RESP 18; TEMP 36.7; O2SAT 96
[2022-08-31] MEDS: oxyCODONE HCl Immed Release 5 MG TABLET PO ×2 (05:39→09:40)
[2022-08-31] MEDS: Levothyroxine Sodium 50 MCG TABLET PO (05:39)
[2022-08-31 06:02] LABS: MANUAL DIFF FLAG NO
[2022-08-31 06:23] LABS: Anion Gap 12 (12-20); Basophils Percent Auto 0.4 % (0-2); Blood Urea Nitrogen 8 mg/dL (9-16); Calcium 8.3 mg/dL (8.4-10.2); Carbon Dioxide 28 mmol/L (22-29); Chloride 110 mmol/L (96-108); Creatinine Clr Calc Pharmacy 104.4; Eosinophils Absolute Auto 0.1 X10*3/uL (0.0-0.4); Eosinophils Percent Auto 0.5 % (0-4); Estimated Glomerular Filt Rate > 60; Glucose Random 105 mg/dL (60-115); Hemoglobin 12.9 g/dl (14.0-18.0); Imm Gran Abs Auto 0.11 X10*3/uL (0.00-0.03); Imm Gran Pct Auto 1.1 % (0.0-0.4); Lymphocytes Absolute Auto 1.1 X10*3/uL (1.2-4.9); Lymphocytes Percent Auto 10.5 % (20-40); Mean Corpuscular HGB Conc 30.7 g/dl (31.0-36.0); Mean Corpuscular Hemoglobin 30.7 pg (27.0-33.0); Mean Platelet Volume 9.8 fL (9.4-12.4); Monocytes Absolute Auto 0.9 X10*3/uL (0.1-1.2); Monocytes Percent Auto 9.1 % (2-11); Neutrophils Percent Auto 78.4 % (45-73); Platelet Count 183 X10*3/uL (160-400); Red Cell Distribution Width 13.6 % (11.0-16.0); Sodium 146 mmol/L (135-145); White Blood Count 10.2 X10*3/uL (4.8-10.8)
--- NOTE | 2022-08-31 07:52 | P.PNGS_ITS ---
Subjective Subjective Date of Service: 08/31/22 Interval history: Patient complains mainly of neck pain rather than abdominal pain. Denies any problems overnight. Reports being hungry this morning. No flatus or bowel movement yet. Physical Exam Vital Signs: Vital Signs: Last Vital Signs Temp 98.1 F 08/31/22 04:00 Pulse 82 08/31/22 04:00 Resp 18 08/31/22 04:00 BP 151/76 H 08/31/22 04:00 Pulse Ox 96 08/31/22 04:00 O2 Del Method Nasal Cannula 08/31/22 04:00 O2 Flow Rate 2 08/31/22 04:00 BMI result Body Mass Index 29.8 Const: General: no acute distress and well developed Nutritional Appearance: well nourished Orientation/consciousness: patient oriented x3 Limitations: no limitations HEENT: Head: Yes normocephalic and Yes atraumatic Resp: Effort & Inspection: normal respiratory effort, no audible wheezes, no cough and no respiratory distress GI: Other: Dressings are clean, dry, and intact without redness or discharge. Inspection: Yes normal to inspection Palpation (GI): Soft to palpation, Tenderness to palpation present (GI), no guarding and not rigid Neuro: General: patient oriented x3 Extrem: Other: No pedal edema Objective Data Active Medications Buspirone HCl (Buspirone Hcl 10 Mg Tablet) 10 mg PO BID PRN PRN Reason: Anxiety Carbidopa/Levodopa (Carbidopa/Levodopa 25/100 Tablet) 1 tab PO TID [facility] Last Admin: 08/30/22 21:20 Dose: 1 tab Documented By: CLARISSE Fluticasone Propionate (Fluticasone Propionate Nasal 16 Gm [place]) 1 spray NOSTRIL-B BID [facility] Last Admin: 08/30/22 21:27 Dose: Not Given Documented By: CLARISSE Non-Admin Reason: Med Not Available Hydromorphone HCl (Hydromorphone Hcl 1 Mg/Ml Syringe) 0.5 mg IVPUSH Q3H PRN; Protocol PRN Reason: Pain, Severe (Pain Scale 7-10) Last Admin: 08/31/22 02:12 Dose: 0.5 mg Documented By: CLARISSE Acetaminophen (Ofirmev) 1,000 mg in 100 mls @ 400 mls/hr IV Q6H [facility] Last Infusion: 08/31/22 01:26 Dose: 0 mls/hr Documented By: CLARISSE Dextrose/Lactated Ringer's (D5lr) 1,000 mls @ 100 mls/hr IVCONT .Q10H [facility] Last Admin: 08/31/22 01:13 Dose: 125 mls/hr Documented By: CLARISSE Levothyroxine Sodium (Levothyroxine Sodium 50 Mcg Tablet) 50 mcg PO DAILY@0600 [facility] Last Admin: 08/31/22 05:39 Dose: 50 mcg Documented By: CLARISSE Lidocaine (Lidocaine 4 % Patch Adh..Patch) 1 patch TRANSDERMA BID PRN PRN Reason: Pain, Mild (Pain Scale 1-3) Naloxone HCl (Naloxone Hcl Nasal 4 Mg [place]) 4 mg NOSTRILALT Q2M PRN PRN Reason: opioid overdose Ondansetron HCl (Ondansetron Hcl 4 Mg/2 Ml Vial) 4 mg IVPUSH Q8H PRN PRN Reason: Nausea and Vomiting Oxycodone HCl (Oxycodone Hcl Immed Release 5 Mg Tablet) 5 mg PO Q4H PRN PRN Reason: Pain, Moderate(Pain Scale 4-6) Last Admin: 08/31/22 05:39 Dose: 5 mg Documented By: CLARISSE Pharmacy Consult (Consult Rx Perform Med Rec) 1 each MISCELLANE ONCE PRN PRN Reason: Consult order Ropinirole HCl (Ropinirole Hcl 2 Mg Tablet) 12 mg PO BEDTIME [facility] Last Admin: 08/30/22 21:20 Dose: 12 mg Documented By: CLARISSE Sodium Chloride (0.9 % Sodium Chloride Flush 3 Ml Syringe) 3 ml IVFLUSH QSHIFT [facility] Last Admin: 08/30/22 23:47 Dose: Not Given Documented By: CLARISSE Non-Admin Reason: IV Running Trazodone HCl (Trazodone Hcl 100 Mg Tablet) 300 mg PO BEDTIME PRN PRN Reason: insomnia Last Admin: 08/30/22 22:11 Dose: 300 mg Documented By: CLARISSE Labs 08/31/22 05:38 08/31/22 05:38 Labs: Laboratory Results - last 24 hr 08/31/22 08/31/22 05:38 05:38 MCV 100.0 H MCH 30.7 MCHC 30.7 L RDW 13.6 Plt Count 183 MPV 9.8 Immature Gran % (Auto) 1.1 H Neut % (Auto) 78.4 H Lymph % (Auto) 10.5 L [place] % (Auto) 9.1 Eos % (Auto) 0.5 Baso % (Auto) 0.4 Lymph # (Auto) 1.1 L [place] # (Auto) 0.9 Eos # (Auto) 0.1 Baso # (Auto) 0.0 Abs Immat Gran (auto) 0.11 H Absolute Neuts (auto) 8.0 Absolute Nucleated RBC 0.000 Nucleated RBC % (auto) 0.0 Anion Gap 12 Estim Creat Clear Calc 104.4 Estimated GFR > 60 Random Glucose 105 Calcium 8.3 L D Procedures Date of Service Date of Service: 08/31/22 Progress Note: A&P Assessment and plan (1) History of colostomy reversal: Status: Acute Plan Pod 1 following reversal of colostomy. Patient is hemodynamically stable and his wounds are clean and intact. Will DC Lerner this morning. Patient should be up and ambulating 3 times daily. Encouraged incentive spirometry. Advance diet as tolerated. Time Spent With Patient Time: Total time managing care of this patient today ____ minutes. No Severe Sepsis: No Severe Sepsis Quality Stroke Does the patient have a stroke diagnosis?: No VTE Prior VTE?: No VTE Risk Level:: Surgical - moderate VTE Device Contraindication: N/A - Device Ordered VTE Drug Contraindication: Treatment Not Indicated
[2022-08-31 08:00] VITALS: BP 174/80; PULSE 80; RESP 17; TEMP 37.4; O2SAT 98
[2022-08-31] MEDS: Heparin Sodium,Porcine 5,000 UNIT/ML VIAL 5000 UNIT SUBCUT ×2 (08:35→20:33)
[2022-08-31] MEDS: dilTIAZem HCL CD 240 MG CAP.ER.DEG PO (08:38)
[2022-08-31] MEDS: Finasteride 5 MG TABLET PO (08:38)
[2022-08-31] MEDS: Carbidopa/Levodopa 25/100 TABLET 1 TAB PO ×3 (08:38→20:32)
[2022-08-31] MEDS: DULoxetine HCl 60 MG CAPSULE.DR PO (08:38)
[2022-08-31] MEDS: Lidocaine 4 % Patch ADH..PATCH 1 PATCH TRANSDERMA (08:49)
[2022-08-31] MEDS: Dextrose 5 % 1,000 ML 80 ML IVCONT (09:11)
--- NOTE | 2022-08-31 09:31 | MHC.CM.PN ---
PATIENT LIVES WITH HIS /HCP NEW HCP COPY IN CHART FOR MEDICAL RECORDS TO UPLOAD. PATIENT RELIES ON A WALKER. NO VNA SERVICES IN THE HOME. PATIENT HOPES TO BE ABLE TO RETURN HOME WITH NO SERVICES. WILL TRANSPORT. IMM 08/31 IN CHART
[2022-08-31] MEDS: amantadine HCL 100 MG CAPSULE PO ×3 (11:03→20:32)
[2022-08-31] MEDS: Fluticasone Propionate Nasal 16 GM SPRAY 1 SPRAY NOSTRIL-B (11:04)
[2022-08-31] MEDS: Baclofen 20 MG TABLET PO (12:09)
[2022-08-31] MEDS: rOPINIRole HCL 2 MG TABLET 6 MG PO (12:09)
--- NOTE | 2022-08-31 13:07 | P.PNIM_ITS ---
Subjective Subjective Date of Service: 08/31/22 Interval History: complaining of mild abdominal pain eating breakfast, no nausea no vomiting, denies shortness of breath, no chest pain no lightheadedness, or dizziness, no fevers, no chills, no other acute issues overnight, noted to have elevated blood pressures. Review of Systems Review of Systems: Yes all other systems are reviewed and are negative Physical Exam Vital Signs: Vital Signs: Last Vital Signs Temp 99.4 F 08/31/22 08:00 Pulse 80 08/31/22 08:00 Resp 17 08/31/22 08:00 BP 174/80 H 08/31/22 08:00 Pulse Ox 98 08/31/22 08:00 O2 Del Method Nasal Cannula 08/31/22 08:00 O2 Flow Rate 2.0 08/31/22 08:00 BMI result Body Mass Index 29.8 Const: Other: General resting comfortably in no acute distress.? Neck supple no JVD. CVS? regular rate rhythm, Respiratory lungs clear to auscultation, no respiratory distress, no wheeze, no rhonchi. Gastrointestinal abdomen soft, mild tenderness to palpation mid abd, Dressing in place, no abdominal distension, no guarding , no rigidity. Extremities noedema. Neuro nonfocal Skin no rash psych appropriate affect Objective Data Active Medications Amantadine HCl (Amantadine Hcl 100 Mg Capsule) 100 mg PO TID [facility] Last Admin: 08/31/22 11:03 Dose: 100 mg Documented By: TAL Baclofen (Baclofen 20 Mg Tablet) 20 mg PO BID PRN PRN Reason: pain (scale score 4-6) Last Admin: 08/31/22 12:09 Dose: 20 mg Documented By: TAL Buspirone HCl (Buspirone Hcl 10 Mg Tablet) 10 mg PO BID PRN PRN Reason: Anxiety Carbidopa/Levodopa (Carbidopa/Levodopa 25/100 Tablet) 1 tab PO TID [facility] Last Admin: 08/31/22 08:38 Dose: 1 tab Documented By: TAL Diltiazem HCl (Diltiazem Hcl Cd 240 Mg Cap.Er.Deg) 240 mg PO DAILY [facility]; Protocol Last Admin: 08/31/22 08:38 Dose: 240 mg Documented By: TAL Duloxetine HCl (Duloxetine Hcl 60 Mg Capsule.Dr) 60 mg PO DAILY [facility] Last Admin: 08/31/22 08:38 Dose: 60 mg Documented By: TAL Finasteride (Finasteride 5 Mg Tablet) 5 mg PO DAILY [facility] Last Admin: 08/31/22 08:38 Dose: 5 mg Documented By: TAL Fluticasone Propionate (Fluticasone Propionate Nasal 16 Gm [place]) 1 spray NOSTRIL-B BID [facility] Last Admin: 08/31/22 11:04 Dose: 1 spray Documented By: TAL Heparin Sodium (Porcine) (Heparin Sodium,Porcine 5,000 Unit/Ml Vial) 5,000 unit SUBCUT Q12H [facility] Last Admin: 08/31/22 08:35 Dose: 5,000 unit Documented By: TAL Hydromorphone HCl (Hydromorphone Hcl 1 Mg/Ml Syringe) 1 mg IVPUSH Q4H PRN; Protocol PRN Reason: Pain, Severe (Pain Scale 7-10) Acetaminophen (Ofirmev) 1,000 mg in 100 mls @ 400 mls/hr IV Q6H [facility] Last Infusion: 08/31/22 09:41 Dose: 0 mls/hr Documented By: TAL Dextrose (D5w) 1,000 mls @ 80 mls/hr IVCONT .[id number] [facility] Stop: 08/31/22 20:29 Last Admin: 08/31/22 09:11 Dose: 80 mls/hr Documented By: TAL Levothyroxine Sodium (Levothyroxine Sodium 50 Mcg Tablet) 50 mcg PO DAILY@0600 [facility] Last Admin: 08/31/22 05:39 Dose: 50 mcg Documented By: CLARISSE Lidocaine (Lidocaine 4 % Patch Adh..Patch) 1 patch TRANSDERMA BID PRN PRN Reason: Pain, Mild (Pain Scale 1-3) Last Admin: 08/31/22 08:49 Dose: 1 patch Documented By: TAL Naloxone HCl (Naloxone Hcl Nasal 4 Mg [place]) 4 mg NOSTRILALT Q2M PRN PRN Reason: opioid overdose Ondansetron HCl (Ondansetron Hcl 4 Mg/2 Ml Vial) 4 mg IVPUSH Q8H PRN PRN Reason: Nausea and Vomiting Oxycodone HCl (Oxycodone Hcl Immed Release 5 Mg Tablet) 5 mg PO Q4H PRN PRN Reason: Pain, Moderate(Pain Scale 4-6) Last Admin: 08/31/22 09:40 Dose: 5 mg Documented By: TAL Oxycodone HCl (Oxycodone Hcl Immed Release 5 Mg Tablet) 10 mg PO Q4H PRN PRN Reason: Pain, Severe (Pain Scale 7-10) Pharmacy Consult (Consult Rx Perform Med Rec) 1 each MISCELLANE ONCE PRN PRN Reason: Consult order Ropinirole HCl (Ropinirole Hcl 2 Mg Tablet) 12 mg PO BEDTIME [facility] Last Admin: 08/30/22 21:20 Dose: 12 mg Documented By: CLARISSE Ropinirole HCl (Ropinirole Hcl 2 Mg Tablet) 6 mg PO DAILY@1200 [facility] Last Admin: 08/31/22 12:09 Dose: 6 mg Documented By: TAL Sodium Chloride (0.9 % Sodium Chloride Flush 3 Ml Syringe) [facility] Last Admin: 08/31/22 08:23 Dose: Not Given Documented By: TAL Non-Admin Reason: IV Running Sodium Chloride (0.9 % Sodium Chloride Flush 3 Ml Syringe) 3 ml IVFLUSH [facility] Last Admin: 08/31/22 09:04 Dose: Not Given Documented By: TAL Non-Admin Reason: IV Running Trazodone HCl (Trazodone Hcl 100 Mg Tablet) 300 mg PO BEDTIME PRN PRN Reason: insomnia Last Admin: 08/30/22 22:11 Dose: 300 mg Documented By: CLARISSE Labs 08/31/22 05:38 08/31/22 05:38 Labs: Laboratory Results - last 24 hr 08/31/22 08/31/22 05:38 05:38 MCV 100.0 H MCH 30.7 MCHC 30.7 L RDW 13.6 Plt Count 183 MPV 9.8 Immature Gran % (Auto) 1.1 H Neut % (Auto) 78.4 H Lymph % (Auto) 10.5 L [place] % (Auto) 9.1 Eos % (Auto) 0.5 Baso % (Auto) 0.4 Lymph # (Auto) 1.1 L [place] # (Auto) 0.9 Eos # (Auto) 0.1 Baso # (Auto) 0.0 Abs Immat Gran (auto) 0.11 H Absolute Neuts (auto) 8.0 Absolute Nucleated RBC 0.000 Nucleated RBC % (auto) 0.0 Anion Gap 12 Estim Creat Clear Calc 104.4 Estimated GFR > 60 Random Glucose 105 Calcium 8.3 L D Assessment and Plan (1) History of colostomy reversal: Status: Acute (2) Hypertensive heart disease: Status: Acute (3) BPH (benign prostatic hyperplasia): Status: Acute Plan status post reversal of end colostomy postoperative day 1 good pain control ,diet advanced to regular as per General surgery ?continue pain medications, DC IV fluids ?further treatment plan as per General surgery ? DC oxygen not on home O2 finger oximetry is stable, stable hematocrit mild hypernatremia will change IV fluid to D5W follow labs. ?hypothyroidism continue Synthroid. chronic pain pain/RLS on multiple medications,baclofen, duloxetine, Requip and pregabalin, will resume all home medications Parksinon's disease/dementia continue carbidopan, amantadine? and Aricept on hold. BPH resume proscar, and flomax . HTN noted to have elevated blood pressures continue diltiazem and resume lisinopril , follow BP FRANCES not complaint with CPAP at baseline. DVT prophylaxis with compression boots. code status full code disposition as per General surgery Time Spent With Patient Time: Total time managing care of this patient today ____ minutes. Quality Stroke Does the patient have a stroke diagnosis?: No VTE Prior VTE?: No VTE Risk Level:: Surgical - moderate VTE Device Contraindication: N/A - Device Ordered VTE Drug Contraindication: Treatment Not Indicated
[2022-08-31] MEDS: lisinopriL 20 MG TABLET PO (13:38)
--- NOTE | 2022-08-31 14:04 | PC.NURSE ---
Lerner Catheter D/C'd at 13:10. Pt tolerated procedure well. Pt has voided 200cc of clear yellow urine in urinal since removal of catheter.
[2022-08-31 15:09] VITALS: BP 151/75; PULSE 73; RESP 18; TEMP 36.7; O2SAT 95
--- NOTE | 2022-08-31 15:28 | HO.POSTANES ---
Post Anesthesia Evaluation Post Anesthesia Evaluation Vital Signs: Vital Signs Temp Pulse Resp BP Pulse Ox O2 Del Method O2 Flow Rate 08/31/22 15:09 98.0 F 73 18 151/75 H 95 Room Air 08/31/22 08:00 99.4 F 80 17 174/80 H 98 Nasal Cannula 2.0 08/31/22 04:00 98.1 F 82 18 151/76 H 96 Nasal Cannula 2 Anesthesia: General Endotracheal-GETA Mental Status: Awake Pain Control: Satisfactory Nausea/Vomiting: None Hydration: Adequate Anesthesia-Related Issues: No Anes. Related Issues
[2022-08-31] MEDS: HYDROmorphone HCl 1 MG/ML SYRINGE IVPUSH ×2 (16:44→21:23)
[2022-08-31 19:20] VITALS: BP 155/77; PULSE 74; RESP 18; TEMP 37.1; O2SAT 96
[2022-08-31] MEDS: Tamsulosin HCL 0.4 MG CAPSULE PO (20:31)
[2022-08-31] MEDS: Pregabalin 150 MG CAPSULE 300 MG PO (20:31)
[2022-08-31] MEDS: rOPINIRole HCL 2 MG TABLET 12 MG PO (20:32)
[2022-08-31] MEDS: 0.9 % Sodium Chloride Flush 3 ML SYRINGE IVFLUSH (20:40)
[2022-08-31] MEDS: traZODone HCL 100 MG TABLET 300 MG PO (21:52)
[2022-09-01] MEDS: 0.9 % Sodium Chloride Flush 3 ML SYRINGE IVFLUSH (01:27)
[2022-09-01] MEDS: Acetaminophen 1,000 MG/100 ML PIGGYBACK 400 MG IV ×2 (01:28→07:15)
[2022-09-01 01:41] VITALS: BP 159/80; PULSE 80; RESP 18; TEMP 37.2; O2SAT 97
[2022-09-01] MEDS: oxyCODONE HCl Immed Release 5 MG TABLET 10 MG PO ×2 (01:48→07:16)
[2022-09-01] MEDS: HYDROmorphone HCl 1 MG/ML SYRINGE IVPUSH (05:02)
[2022-09-01] MEDS: Levothyroxine Sodium 50 MCG TABLET PO (05:09)
[2022-09-01 07:11] LABS: Anion Gap 11 (12-20); Blood Urea Nitrogen 8 mg/dL (9-16); Calcium 8.4 mg/dL (8.4-10.2); Carbon Dioxide 28 mmol/L (22-29); Chloride 107 mmol/L (96-108); Creatinine Clr Calc Pharmacy 112.9; Estimated Glomerular Filt Rate > 60; Glucose Random 88 mg/dL (60-115); Potassium 3.4 mmol/L (3.3-5.1); Sodium 143 mmol/L (135-145)
[2022-09-01] MEDS: Tamsulosin HCL 0.4 MG CAPSULE PO (07:16)
[2022-09-01] MEDS: Finasteride 5 MG TABLET PO (07:16)
[2022-09-01] MEDS: Pregabalin 150 MG CAPSULE 300 MG PO (07:16)
[2022-09-01] MEDS: Heparin Sodium,Porcine 5,000 UNIT/ML VIAL 5000 UNIT SUBCUT (07:16)
[2022-09-01] MEDS: amantadine HCL 100 MG CAPSULE PO (07:17)
[2022-09-01] MEDS: dilTIAZem HCL CD 240 MG CAP.ER.DEG PO (07:17)
[2022-09-01] MEDS: Carbidopa/Levodopa 25/100 TABLET 1 TAB PO (07:17)
[2022-09-01] MEDS: DULoxetine HCl 60 MG CAPSULE.DR PO (07:17)
[2022-09-01 07:18] VITALS: BP 130/91; PULSE 90; RESP 16; TEMP 37.3; O2SAT 97
[2022-09-01] MEDS: lisinopriL 20 MG TABLET PO (07:18)
--- NOTE | 2022-09-01 08:04 | PM.PNGS ---
Subjective Subjective Date of Service: 09/01/22 Interval history: Feels much better with adjustment in pain meds. Tolerating solid diet without N/V. Had multiple loose BMs yesterday. Has not gotten OOB. Physical Exam Vital Signs: Vital Signs: Last Vital Signs Temp 99.1 F 09/01/22 07:18 Pulse 90 09/01/22 07:18 Resp 16 09/01/22 07:18 BP 130/91 H 09/01/22 07:18 Pulse Ox 97 09/01/22 07:18 O2 Del Method Room Air 09/01/22 07:18 O2 Flow Rate 2.0 08/31/22 08:00 BMI result Body Mass Index 29.8 Const: General: comfortable, no acute distress and alert Resp: Effort & Inspection: normal respiratory effort GI: Inspection: No distended and Yes incision (clean) Palpation (GI): Soft to palpation, Tenderness to palpation present (GI) (mild incisional), no guarding and not rigid Percussion: Yes normal to percussion Skin: General skin exam: no rashes or lesions noted Neuro: General: moves all extremities Objective Data Active Medications Amantadine HCl (Amantadine Hcl 100 Mg Capsule) 100 mg PO TID [facility] Last Admin: 09/01/22 07:17 Dose: 100 mg Documented By: LISA Baclofen (Baclofen 20 Mg Tablet) 20 mg PO BID PRN PRN Reason: pain (scale score 4-6) Last Admin: 08/31/22 12:09 Dose: 20 mg Documented By: GRAZSHERITA Buspirone HCl (Buspirone Hcl 10 Mg Tablet) 10 mg PO BID PRN PRN Reason: Anxiety Carbidopa/Levodopa (Carbidopa/Levodopa 25/100 Tablet) 1 tab PO TID [facility] Last Admin: 09/01/22 07:17 Dose: 1 tab Documented By: LISA Diltiazem HCl (Diltiazem Hcl Cd 240 Mg Cap.Er.Deg) 240 mg PO DAILY [facility]; Protocol Last Admin: 09/01/22 07:17 Dose: 240 mg Documented By: LISA Duloxetine HCl (Duloxetine Hcl 60 Mg Capsule.Dr) 60 mg PO DAILY [facility] Last Admin: 09/01/22 07:17 Dose: 60 mg Documented By: LISA Finasteride (Finasteride 5 Mg Tablet) 5 mg PO DAILY [facility] Last Admin: 09/01/22 07:16 Dose: 5 mg Documented By: LISA Fluticasone Propionate (Fluticasone Propionate Nasal 16 Gm [place]) 1 spray NOSTRIL-B BID [facility] Last Admin: 09/01/22 07:15 Dose: Not Given Documented By: LISA Non-Admin Reason: Patient Refused Heparin Sodium (Porcine) (Heparin Sodium,Porcine 5,000 Unit/Ml Vial) 5,000 unit SUBCUT Q12H [facility] Last Admin: 09/01/22 07:16 Dose: 5,000 unit Documented By: LISA Hydromorphone HCl (Hydromorphone Hcl 1 Mg/Ml Syringe) 1 mg IVPUSH Q4H PRN; Protocol PRN Reason: Pain, Severe (Pain Scale 7-10) Last Admin: 09/01/22 05:02 Dose: 1 mg Documented By: SHARATH Acetaminophen (Ofirmev) 1,000 mg in 100 mls @ 400 mls/hr IV Q6H [facility] Last Admin: 09/01/22 07:15 Dose: 400 mls/hr Documented By: LISA Levothyroxine Sodium (Levothyroxine Sodium 50 Mcg Tablet) 50 mcg PO DAILY@0600 [facility] Last Admin: 09/01/22 05:09 Dose: 50 mcg Documented By: SHARATH Lidocaine (Lidocaine 4 % Patch Adh..Patch) 1 patch TRANSDERMA BID PRN PRN Reason: Pain, Mild (Pain Scale 1-3) Last Admin: 08/31/22 08:49 Dose: 1 patch Documented By: TAL Lisinopril (Lisinopril 20 Mg Tablet) 20 mg PO DAILY [facility]; Protocol Last Admin: 09/01/22 07:18 Dose: 20 mg Documented By: LISA Naloxone HCl (Naloxone Hcl Nasal 4 Mg [place]) 4 mg NOSTRILALT Q2M PRN PRN Reason: opioid overdose Ondansetron HCl (Ondansetron Hcl 4 Mg/2 Ml Vial) 4 mg IVPUSH Q8H PRN PRN Reason: Nausea and Vomiting Oxycodone HCl (Oxycodone Hcl Immed Release 5 Mg Tablet) 5 mg PO Q4H PRN PRN Reason: Pain, Moderate(Pain Scale 4-6) Last Admin: 08/31/22 09:40 Dose: 5 mg Documented By: TAL Oxycodone HCl (Oxycodone Hcl Immed Release 5 Mg Tablet) 10 mg PO Q4H PRN PRN Reason: Pain, Severe (Pain Scale 7-10) Last Admin: 09/01/22 07:16 Dose: 10 mg Documented By: LISA Pharmacy Consult (Consult Rx Perform Med Rec) 1 each MISCELLANE ONCE PRN PRN Reason: Consult order Pregabalin (Pregabalin 150 Mg Capsule) 300 mg PO BID [facility] Last Admin: 09/01/22 07:16 Dose: 300 mg Documented By: LISA Ropinirole HCl (Ropinirole Hcl 2 Mg Tablet) 12 mg PO BEDTIME [facility] Last Admin: 08/31/22 20:32 Dose: 12 mg Documented By: SHARATH Ropinirole HCl (Ropinirole Hcl 2 Mg Tablet) 6 mg PO DAILY@1200 [facility] Last Admin: 08/31/22 12:09 Dose: 6 mg Documented By: TAL Sodium Chloride (0.9 % Sodium Chloride Flush 3 Ml Syringe) 3 ml IVFLUSH [facility] Last Admin: 09/01/22 01:27 Dose: 3 ml Documented By: SHARATH Sodium Chloride (0.9 % Sodium Chloride Flush 3 Ml Syringe) 3 ml IVFLUSH [facility] Last Admin: 09/01/22 07:17 Dose: Not Given Documented By: LISA Non-Admin Reason: IV Running Tamsulosin HCl (Tamsulosin Hcl 0.4 Mg Capsule) 0.4 mg PO BID [facility] Last Admin: 09/01/22 07:16 Dose: 0.4 mg Documented By: LISA Trazodone HCl (Trazodone Hcl 100 Mg Tablet) 300 mg PO BEDTIME PRN PRN Reason: insomnia Last Admin: 08/31/22 21:52 Dose: 300 mg Documented By: SHARATH Labs 08/31/22 05:38 09/01/22 05:45 Labs: Laboratory Results - last 24 hr 09/01/22 05:45 Anion Gap 11 L Estim Creat Clear Calc 112.9 Estimated GFR > 60 Random Glucose 88 Calcium 8.4 Procedures Date of Service Date of Service: 09/01/22 Progress Note: A&P Assessment and plan (1) History of colostomy reversal: Status: Acute Plan Pod #2 following reversal of colostomy. He is doing very well post operatively with good GI function, tolerating solid diet. Abd is benign with clean incisions. He is encouraged OOB/ambulation today at least 4x today- discussed with RN. Will resume home oral oxycodone schedule. He still has hme PT, will obtain PT consult. Home when pain controlled on oral analgesics, likely over the weekend. Time Spent With Patient Time: Total time managing care of this patient today ____ minutes. Quality Stroke Does the patient have a stroke diagnosis?: No VTE Prior VTE?: No VTE Risk Level:: Surgical - moderate VTE Device Contraindication: N/A - Device Ordered VTE Drug Contraindication: Treatment Not Indicated
--- NOTE | 2022-09-01 11:18 | P.PNIM_ITS ---
Subjective Subjective Date of Service: 09/01/22 Interval History: had 2 loose stools otherwise denies worsening abdominal pain, no nausea, no vomiting tolerating diet, no fevers ,no chills, willing to be discharged home no other acute overnight events. Review of Systems Review of Systems: Yes all other systems are reviewed and are negative Physical Exam Vital Signs: Vital Signs: Last Vital Signs Temp 99.1 F 09/01/22 07:18 Pulse 90 09/01/22 07:18 Resp 16 09/01/22 07:18 BP 130/91 H 09/01/22 07:18 Pulse Ox 97 09/01/22 07:18 O2 Del Method Room Air 09/01/22 07:18 O2 Flow Rate 2.0 08/31/22 08:00 BMI result Body Mass Index 29.8 Const: Other: General resting comfortably in no acute distress.? Neck supple no JVD. CVS? regular rate rhythm, Respiratory lungs clear to auscultation, no respiratory distress, no wheeze, no rhonchi. Gastrointestinal abdomen soft, minimal discomfort to palpation mid abd, Dressing in place, no abdominal distension, no guarding , no rigidity. Extremities noedema. Neuro nonfocal Skin no rash psych appropriate affect Objective Data Active Medications Acetaminophen (Acetaminophen 325 Mg Tablet) 975 mg PO Q6H [facility] Amantadine HCl (Amantadine Hcl 100 Mg Capsule) 100 mg PO TID [facility] Last Admin: 09/01/22 07:17 Dose: 100 mg Documented By: LISA Baclofen (Baclofen 20 Mg Tablet) 20 mg PO BID PRN PRN Reason: pain (scale score 4-6) Last Admin: 08/31/22 12:09 Dose: 20 mg Documented By: TAL Buspirone HCl (Buspirone Hcl 10 Mg Tablet) 10 mg PO BID PRN PRN Reason: Anxiety Carbidopa/Levodopa (Carbidopa/Levodopa 25/100 Tablet) 1 tab PO TID [facility] Last Admin: 09/01/22 07:17 Dose: 1 tab Documented By: LISA Diltiazem HCl (Diltiazem Hcl Cd 240 Mg Cap.Er.Deg) 240 mg PO DAILY [facility]; Protocol Last Admin: 09/01/22 07:17 Dose: 240 mg Documented By: LISA Duloxetine HCl (Duloxetine Hcl 60 Mg Capsule.Dr) 60 mg PO DAILY [facility] Last Admin: 09/01/22 07:17 Dose: 60 mg Documented By: LISA Finasteride (Finasteride 5 Mg Tablet) 5 mg PO DAILY [facility] Last Admin: 09/01/22 07:16 Dose: 5 mg Documented By: LISA Fluticasone Propionate (Fluticasone Propionate Nasal 16 Gm [place]) 1 spray NOSTRIL-B BID [facility] Last Admin: 09/01/22 07:15 Dose: Not Given Documented By: LISA Non-Admin Reason: Patient Refused Heparin Sodium (Porcine) (Heparin Sodium,Porcine 5,000 Unit/Ml Vial) 5,000 unit SUBCUT Q12H [facility] Last Admin: 09/01/22 07:16 Dose: 5,000 unit Documented By: LISA Hydromorphone HCl (Hydromorphone Hcl 1 Mg/Ml Syringe) 1 mg IVPUSH Q4H PRN; Protocol PRN Reason: Pain, Severe (Pain Scale 7-10) Last Admin: 09/01/22 05:02 Dose: 1 mg Documented By: SHARATH Levothyroxine Sodium (Levothyroxine Sodium 50 Mcg Tablet) 50 mcg PO DAILY@0600 [facility] Last Admin: 09/01/22 05:09 Dose: 50 mcg Documented By: SHARATH Lidocaine (Lidocaine 4 % Patch Adh..Patch) 1 patch TRANSDERMA BID PRN PRN Reason: Pain, Mild (Pain Scale 1-3) Last Admin: 08/31/22 08:49 Dose: 1 patch Documented By: TAL Lisinopril (Lisinopril 20 Mg Tablet) 20 mg PO DAILY [facility]; Protocol Last Admin: 09/01/22 07:18 Dose: 20 mg Documented By: LISA Naloxone HCl (Naloxone Hcl Nasal 4 Mg [place]) 4 mg NOSTRILALT Q2M PRN PRN Reason: opioid overdose Ondansetron HCl (Ondansetron Hcl 4 Mg/2 Ml Vial) 4 mg IVPUSH Q8H PRN PRN Reason: Nausea and Vomiting Oxycodone HCl (Oxycodone Hcl Immed Release 5 Mg Tablet) 5 mg PO Q4H [facility] Pharmacy Consult (Consult Rx Perform Med Rec) 1 each MISCELLANE ONCE PRN PRN Reason: Consult order Pregabalin (Pregabalin 150 Mg Capsule) 300 mg PO BID [facility] Last Admin: 09/01/22 07:16 Dose: 300 mg Documented By: LISA Ropinirole HCl (Ropinirole Hcl 2 Mg Tablet) 12 mg PO BEDTIME [facility] Last Admin: 08/31/22 20:32 Dose: 12 mg Documented By: SHARATH Ropinirole HCl (Ropinirole Hcl 2 Mg Tablet) 6 mg PO DAILY@1200 [facility] Last Admin: 08/31/22 12:09 Dose: 6 mg Documented By: TAL Sodium Chloride (0.9 % Sodium Chloride Flush 3 Ml Syringe) 3 ml IVFLUSH [facility] Last Admin: 09/01/22 01:27 Dose: 3 ml Documented By: SHARATH Sodium Chloride (0.9 % Sodium Chloride Flush 3 Ml Syringe) 3 ml IVFLUSH [facility] Last Admin: 09/01/22 07:17 Dose: Not Given Documented By: LISA Non-Admin Reason: IV Running Tamsulosin HCl (Tamsulosin Hcl 0.4 Mg Capsule) 0.4 mg PO BID [facility] Last Admin: 09/01/22 07:16 Dose: 0.4 mg Documented By: LISA Trazodone HCl (Trazodone Hcl 100 Mg Tablet) 300 mg PO BEDTIME PRN PRN Reason: insomnia Last Admin: 08/31/22 21:52 Dose: 300 mg Documented By: SHARATH Labs 08/31/22 05:38 09/01/22 05:45 Labs: Laboratory Results - last 24 hr 09/01/22 05:45 Anion Gap 11 L Estim Creat Clear Calc 112.9 Estimated GFR > 60 Random Glucose 88 Calcium 8.4 Assessment and Plan (1) History of colostomy reversal: Status: Acute (2) Hypertensive heart disease: Status: Acute (3) BPH (benign prostatic hyperplasia): Status: Acute Plan status post reversal of end colostomy postoperative day 1 good pain control , tolerating regular diet ?further treatment plan as per General surgery finger oximetry is stable, stable hematocrit mild hypernatremia resolved with IV fluids. ?hypothyroidism continue Synthroid. chronic pain pain/RLS on multiple medications,baclofen, duloxetine, Requip and pregabalin, will resume all home medications Parksinon's disease/dementia continue carbidopan, amantadine? and Aricept on hold. BPH proscar, and flomax . HTN few high blood pressure readings continue diltiazem and lisinopril FRANCES not complaint with CPAP at baseline. DVT prophylaxis with compression boots. code status full code disposition as per General surgery Time Spent With Patient Time: Total time managing care of this patient today ____ minutes. Quality Stroke Does the patient have a stroke diagnosis?: No VTE Prior VTE?: No VTE Risk Level:: Surgical - moderate VTE Device Contraindication: N/A - Device Ordered VTE Drug Contraindication: Treatment Not Indicated
[2022-09-01 11:33] VITALS: BP 130/91; PULSE 90; O2SAT 97
[2022-09-01] MEDS: oxyCODONE HCl Immed Release 5 MG TABLET PO (11:42)
[2022-09-01] MEDS: rOPINIRole HCL 2 MG TABLET 6 MG PO (11:43)
[2022-09-01] MEDS: Acetaminophen 325 MG TABLET 975 MG PO (12:58)
--- NOTE | 2022-09-01 13:34 | W.MHC.F2F ---
Service Date Service Date: 09/01/22 Encounter Date of encounter: 09/01/22 Reasons for Services Signs and symptoms assessed: abdominal pain, abdominal tenderness, GI function, ambulation and activity Reason for physical therapy: home safety and mobility and therapeutic exercises Homebound: Leaving the home is medically contraindicated at this time without the asist of a device and/or another person due th the listed conditions above and below. Reason homebound: unsteady gait / fall risk and weakness related to hospital stay Homebound supporting statement: Mr. Rivas is s/p colostomy reversal following nimo procedure for perforated diverticulitis. He has history of parkinsons and dementia. He will need home PT for strengthening. Certification: Based on the above findings, I certify that this patient is confined to the home and needs intermittent assisted care, physical therapy and/or speech therapy, or continues to need occupational therapy. The patient is under my care, and I have initiated the establishment of the plan of care. The patient will be followed by a physician who will periodically review the plan of care. Time Spent With Patient Time: Total time managing care of this patient today ____ minutes.
--- NOTE | 2022-09-01 13:48 | PM.DS ---
DS: Providers Provider Date of Service: 09/01/22 Date of admission: 08/30/22 11:19 Primary care physician: Enrrique Bryan MD Attending physician on admission: Aric Mcneill Consults: 08/30/22 13:25 Consult to Hospitalist Routine Comment: Consulting Provider: Hospitalist Reason For Exam: s/p closure colostomy, med management DS: Diagnosis Discharge Diagnosis (1) History of colostomy reversal: Status: Acute (2) Hypertensive heart disease: Status: Acute (3) BPH (benign prostatic hyperplasia): Status: Acute DS: Summary Hospital Course Hospital Course: HPI AT ADMISSION: 71-year-old male patient presenting with a previous history of perforated sigmoid diverticulitis status post Nimo procedure now returning for closure of his end colostomy. HOSPITAL COURSE: On 08/30/22 a closure of colostomy was performed by Dr. Mcneill without complication. The patient tolerated the procedure well and was admitted for observation. He had an uncomplicated post operative course. On POD #1, he felt overall well. His cason was removed. He was passing flatus. He was tolerating clear liquids and was advanced to solid diet. He began to move his bowels. On POD #2 he was tolerating a solid diet. He was ambulated. His home analgesic regimen was resumed. His pain was well controlled. His abdomen remained benign with clean incisions. He saw PT who recommended home PT. He was reassessed and felt overall well and ready for discharge. He was discharged on 09/01/22 in stable condition with home services. he is to follow up with Dr. Mcneill in the office in 1 week. Status at Discharge Functional status at discharge: uses cane/walker Overall status at discharge: patient is progressing back to baseline Time Spent with Patient Time attestation: Total time managing care of this patient today ____ minutes. Discharge coordination time: Less than 30 minutes Quality: Safe Use of Opioids Does Pt have an Active Cancer Diagnosis on the Problem List?: No Quality: Stroke Does the patient have a stroke diagnosis?: No Physical Exam Vital Signs: Vital Signs: Last Vital Signs Temp 99.1 F 09/01/22 07:18 Pulse 90 09/01/22 11:33 Resp 16 09/01/22 07:18 BP 130/91 H 09/01/22 11:33 Pulse Ox 97 09/01/22 11:33 O2 Del Method Room Air 09/01/22 07:18 O2 Flow Rate 2.0 08/31/22 08:00 BMI result Body Mass Index 29.8 Const: General: comfortable, no acute distress and alert Resp: Effort & Inspection: normal respiratory effort GI: Inspection: No distended and Yes incision (clean) Palpation (GI): Soft to palpation, Tenderness to palpation present (GI) (very mild incisional), no guarding and not rigid Skin: General skin exam: no rashes or lesions noted Neuro: General: moves all extremities DS: Data Data Completed and Pending Completed studies during hospitalization [Text1]: Procedures Bypass Sigmoid Colon to Cutaneous with Autologous Tissue Substitute, Open Approach (05/18/22) Excision of Sigmoid Colon, Open Approach (05/18/22) Repair Abdominal Wall, Open Approach (05/18/22) Repair Abdominal Wall, Stoma, External Approach (05/18/22) Labs on day of discharge: Laboratory Results - last 24 hr 09/01/22 05:45 Sodium 143 Potassium 3.4 Chloride 107 Carbon Dioxide 28 Anion Gap 11 L BUN 8 L Creatinine 0.62 Estim Creat Clear Calc 112.9 Estimated GFR > 60 Random Glucose 88 Calcium 8.4 Discharge Plan Discharge Anticipated Discharge Date/Time: 09/02/22 10:11 Patient Disposition: Home Health Service Discharge Diagnosis: s/p colostomy reversal Referrals: [facility] [Outside] - 1 Week Enrrique Bryan MD [Primary Care Provider] - 1 Week Aric Mcneill MD [Physician] - 1 Week Discharge Medications: Continued diltiazem HCl 240 mg capsule,extended release 24hr 240 mg PO DAILY Qty: 90 3RF baclofen 20 mg tablet 20 mg PO BID PRN (Reason: pain (scale score 4-6)) 30 Days Qty: 60 3RF oxycodone 5 mg tablet 5 mg PO Q4H MDD 5 PRN (Reason: pain) 14 Days Qty: 70 0RF Rx Instructions: Please use this prescription to taper off medication, two week compassionate prescription. amantadine HCl 100 mg tablet 1 tab PO TID lisinopril 20 mg tablet 1 tab PO DAILY ropinirole 3 mg tablet 6 mg PO DAILY@1200 trazodone 100 mg tablet 3 tab PO BEDTIME PRN (Reason: insomnia) buspirone 10 mg tablet 1 tab PO BID PRN (Reason: Anxiety) cholecalciferol (vitamin D3) [Vitamin D3] 50 mcg (2,000 unit) Tablet 50 mcg PO DAILY tizanidine 4 mg tablet 4 mg PO TID PRN (Reason: muscle spasticity) pantoprazole 40 mg tablet,delayed release (DR/EC) 40 mg PO DAILY@0630 ondansetron HCl 4 mg tablet 4 mg PO DAILY PRN (Reason: Nausea) ropinirole 3 mg tablet 12 mg PO BEDTIME Rx Instructions: starting to reduce to stop levothyroxine 50 mcg tablet 50 mcg PO DAILY@0600 lidocaine 5 % adhesive patch,medicated 1 patch topical BID Rx Instructions: leave on most painful area for up to 12 hrs diclofenac sodium 1 % gel 2 g topical QID PRN (Reason: Inflammation) Rx Instructions: apply to single elbow, wrist or hand; for hand includes palm/fingers/back of hand carbidopa-levodopa 25-100 mg tablet 1 tab PO TID tamsulosin 0.4 mg capsule 0.4 mg PO BID finasteride 5 mg tablet 5 mg PO DAILY multivitamin [Daily Multi-Vitamin] Tablet 1 tab PO DAILY fluticasone propionate 50 mcg/actuation spray,suspension 1 spray intranasal BID Rx Instructions: administer into both nostrils duloxetine 60 mg capsule,delayed release(DR/EC) 60 mg PO DAILY pregabalin 300 mg capsule 300 mg PO BID memantine 10 mg tablet 10 mg PO BID donepezil 10 mg tablet 10 mg PO BEDTIME naloxone [Narcan] 4 mg/actuation spray,non-aerosol 4 mg intranasal Q2M PRN (Reason: opioid overdose) Qty: 2 0RF Rx Instructions: spray 1 dose into ONE nostril; alternate nostrils w each dose until help arrives Held bisacodyl [Dulcolax (bisacodyl)] 10 mg suppository 10 mg [place] DAILY PRN (Reason: Constipation) Hold Instructions: Resume on 09/21/22. hold for loose stools Discharge Orders: Discharge Order (Routine); Ordered 09/01/22 Ordered By: Keli Zelaya Diet: Advance to usual diet Activity on Discharge: No heavy lifting Stand Alone Forms: Patient Portal Discharge page Activity Restrictions/Additional Instructions: If the incision area is tender, you may apply an ice pack for short intervals (No more than 20 minutes on, followed by at least 20 minutes off). Do not apply heat. Do not use creams, lotions, or topical antibiotics. These can cause infection or allergic reaction. Ok to shower. You have chris closing your incision and these will be removed approximately 10-14 days after surgery. NO HEAVY LIFTING (>10lbs) or strenuous activity. Follow up in office in [address] Mcneill. ([phone]) Call Your Doctor If: -Your temperature exceeds 101.5? F -You experience excessive pain or swelling -You have an unexpected reaction to medication -You have excessive bleeding -You experience continued vomiting/nausea -Your incision begins to separate -Your incision shows signs of infection such as increased redness, swelling, excessive pain, drainage (light blood or clear fluid is normal) or heat Care Plan Goals: Return to baseline health and resume normal activities following recovery period. Health Concerns: Dementia Chronic pain GERD BPH Hx of perforated diverticulitis s/p nimo procedure Plan of Treatment: S/p colostomy reversal Home with services F/u in office Assessment: Doing well post op
--- NOTE | 2022-09-01 13:51 | MHC.CM.PN ---
PATIENT TO RETURN HOME WITH NEW [facility] IS UNABLE T OFFER UNTIL NEXT WEEK, POSSIBLY SUNDAY TO TRANSPORT
== END 2022-09-01 14:20 | disposition home health service (06) | DRG 345 ==
LOC: HO.SSSA 11:21 → HO.S3 12:20
PROVIDERS: Hospitalist; Admitting Provider Surgery; PCP Internal Medicine; Visit Provider Surgery
PROC: 0DSN0ZZ Reposition Sigmoid Colon, Open Approach (ICD-10-PCS; CPT 44620; principal; 2022-08-30 07:30)
DX: Z43.3 Encounter for attention to colostomy (principal); E87.0 Hyperosmolality and hypernatremia; E03.9 Hypothyroidism, unspecified; G25.81 Restless legs syndrome; G47.33 Obstructive sleep apnea (adult) (pediatric); N40.0 Benign prostatic hyperplasia without lower urinary tract symptoms; I11.9 Hypertensive heart disease without heart failure; G20 Parkinson's disease; F02.80 Dementia in other diseases classified elsewhere, unspecified severity, without behavioral disturbance, psychotic disturbance, mood disturbance, and anxiety; K21.9 Gastro-esophageal reflux disease without esophagitis; Z88.1 Allergy status to other antibiotic agents; Z88.2 Allergy status to sulfonamides; Z79.51 Long term (current) use of inhaled steroids; Z79.890 Hormone replacement therapy; Z79.899 Other long term (current) drug therapy
CPT/HCPCS: 36415; 80048; 85025; 86850; 86900; 86901; 88304; 88305; 97162; J0131; J1100; J1170; J1643; J1956; J2250; J2370; J2405; J3010

== ENCOUNTER 2022-08-31 15:19 | Outpatient (REF) | payer MEDICARE, OTHER, SELFPAY | END 2022-08-31 15:20 | disposition home or self-care (01) | LOC: HO.HOSX 15:19 | PROVIDERS: Visit Provider Physician Assistant | DX: Z13.89 Encounter for screening for other disorder (principal) ==

== ENCOUNTER 2022-09-05 07:58 | Outpatient (REF) | payer MEDICARE, OTHER, SELFPAY | END 2022-09-05 07:59 | disposition home or self-care (01) | LOC: HO.HOSX 07:58 | PROVIDERS: Visit Provider Physician Assistant | DX: Z13.89 Encounter for screening for other disorder (principal) ==

== ENCOUNTER 2022-09-05 23:28 | Emergency (ER) | payer MEDICARE, OTHER, SELFPAY ==
[2022-09-05 23:36] VITALS: BP 147/58; BP 150/90; PULSE 80; PULSE 81; RESP 18; TEMP 37.1; O2SAT 97; O2SAT 99; BMI 26.7
--- NOTE | 2022-09-05 23:49 | ED.GENADULT ---
HPI - General Adult General Chief complaint: General Medical Stated complaint: BLEEDING FRO SURGICAL SITE ON ABD, SURG 1WK AGO Time Seen by Provider: 09/05/22 23:38 Source: patient Mode of arrival: EMS Limitations: no limitations History of Present Illness HPI narrative: Patient is status post closure of his end colostomy on 08/31/2019 with skin chris comes here as when he stood up he noticed fresh bleeding from his umbilical area where staple was placed Related Data Home Medications Medication Instructions Recorded Confirmed carbidopa 25 mg-levodopa 100 mg 1 tab PO TID 01/21/20 08/30/22 tablet diclofenac sodium 1 % topical gel 2 g topical QID PRN Inflammation 01/21/20 08/16/22 finasteride 5 mg tablet 5 mg PO DAILY 01/21/20 08/16/22 levothyroxine 50 mcg tablet 50 mcg PO DAILY@0600 01/21/20 08/16/22 lidocaine 5 % topical patch 1 patch topical BID 01/21/20 08/16/22 multivitamin (Daily Multi-Vitamin 1 tab PO DAILY 01/21/20 08/16/22 tablet) tamsulosin 0.4 mg capsule 0.4 mg PO BID 01/21/20 08/16/22 ondansetron HCl 4 mg tablet 4 mg PO DAILY PRN Nausea 09/15/20 08/16/22 pantoprazole 40 mg tablet,delayed 40 mg PO DAILY@0630 09/15/20 08/16/22 release ropinirole 3 mg tablet 12 mg PO BEDTIME 10/21/20 08/16/22 fluticasone propionate 50 1 spray intranasal BID 10/27/20 08/16/22 mcg/actuation nasal spray,suspension donepezil 10 mg tablet 10 mg PO BEDTIME 10/07/21 08/16/22 duloxetine 60 mg capsule,delayed 60 mg PO DAILY 10/07/21 08/16/22 release memantine 10 mg tablet 10 mg PO BID 10/07/21 08/16/22 pregabalin 300 mg capsule 300 mg PO BID 10/07/21 08/16/22 amantadine HCl 100 mg tablet 1 tab PO TID 04/12/22 08/16/22 buspirone 10 mg tablet 1 tab PO BID PRN Anxiety 04/12/22 08/16/22 cholecalciferol (vitamin D3) 50 50 mcg PO DAILY 04/12/22 08/16/22 mcg (2,000 unit) tablet (Vitamin D3) lisinopril 20 mg tablet 1 tab PO DAILY 04/12/22 08/16/22 ropinirole 3 mg tablet 6 mg PO DAILY@1200 04/12/22 08/16/22 trazodone 100 mg tablet 3 tab PO BEDTIME PRN insomnia 04/12/22 08/16/22 bisacodyl 10 mg rectal suppository 10 mg MO DAILY PRN Constipation 06/09/22 08/16/22 (Dulcolax (bisacodyl)) tizanidine 4 mg tablet 4 mg PO TID PRN muscle spasticity 08/16/22 08/16/22 Previous Rx's Medication Instructions Recorded diltiazem HCl 240 mg 240 mg PO DAILY #90 caps 03/27/22 capsule,extended release 24 hr naloxone 4 mg/actuation nasal 4 mg intranasal Q2M PRN opioid 05/05/22 spray (Narcan) overdose #2 ea baclofen 20 mg tablet 20 mg PO BID PRN pain (scale score 08/15/22 4-6) 30 days #60 tabs oxycodone 5 mg tablet 5 mg PO Q4H PRN pain 2 weeks #70 08/24/22 tabs Allergies Allergy/AdvReac Type Severity Reaction Status Date / Time Sulfa (Sulfonamide Allergy Severe HIVES/DIFF. Verified 07/21/22 10:02 Antibiotics) BREATHING vancomycin [VANCOMYCIN] Allergy Severe SHORTNESS Verified 07/21/22 10:02 OF BREATH cephalexin [CEPHALEXIN] Allergy Intermediate SHORTNESS Verified 07/21/22 10:02 OF BREATH DAIRY PRODUCTS AdvReac Intermediate GI Uncoded 06/23/22 11:13 UPSET/DIARRHEA Review of Systems Review of Systems: Yes all other systems are reviewed and are negative PMFSH Past Medical History Medical History Bilateral primary osteoarthritis of knee BPH (benign prostatic hyperplasia) Chronic pain syndrome Failed back syndrome of cervical spine GERD (gastroesophageal reflux disease) Hard of hearing HTN (hypertension) Hypertensive heart disease Hypothyroidism Neck pain PAC (premature atrial contraction) Parkinsons Restless leg syndrome Upper back pain, chronic Surgical History H/O exploratory laparotomy (05/18/22) H/O neck surgery History of colostomy reversal History of foot surgery History of surgery (05/29/22) History of total left knee replacement (TKR) Hx laparoscopic cholecystectomy Hx of colonoscopy Hx of fusion of cervical spine Hx of hernia repair Social History Social History Household Members: Spouse Household Members Other:: 1 Housing: House Are you a primary wild animal caretaker to a significant other at home: No Do you presently have visiting nurse or other home services: No Alcohol intake: current Alcohol intake frequency: holidays/special occasions only Patient Tobacco Use Status: Former Tobacco user Quit Date: 1999 Tobacco use type: Cigarette e-Cigarette/Vaping Use: Former Use Second Hand Smoke Exposure: No Substance Use Type: Marijuana and Prescription Drugs Advance Directives: Yes Advance Directives on File: Yes Advance Directives Date on File: 01/19/20 service: No Current occupational status: retired Physical Exam ED Vital Signs: Vital Signs - 24 hr 09/05/22 23:36 09/06/22 01:47 Temperature 98.7 F Pulse Rate 81 82 Respiratory Rate 18 16 Blood Pressure 147/58 H 127/58 L Pulse Oximetry 97 96 Oxygen Delivery Method Room Air Room Air BMI result Body Mass Index 26.7 Appearance: Alert. Oriented X3. No acute distress. Eyes: PERRLA, No Nystagmus ENT: Pharynx normal. Oral Mucosa moist [place] Neck: Normal inspection. Neck supple. CVS: Normal heart rate and rhythm. Pulses normal. Respiratory: No respiratory distress. Equal air entry bilateral, no wheezing/rales/rhonchi Abdomen: Soft and nontender. Chris in place patient losing from stable applied on the umbilical area minor ooze Bowel sounds are present, no mass palpable, no CVA tenderness Skin: Skin warm and dry. Normal skin color. Normal skin turgor. Extremities: No lower extremity edema. No calf tenderness Neuro: Oriented X 3. No motor deficit. No sensory deficit.No cerebellar signs , cranial nerves II-XII intact Medications Administered Discontinued Medications Generic Name Dose Route Start Last Admin Trade Name Freq PRN Reason Stop Dose Admin Lidocaine HCl 4 ml 09/05/22 23:54 09/06/22 00:21 Lidocaine Hcl 1 % Mpf 2 Ml Vial INFILTRATI 09/05/22 23:55 4 ml ONCE ONE Administration Oxycodone HCl 10 mg 09/05/22 23:55 09/06/22 00:20 Oxycodone Hcl Immed Release 5 Mg Tablet PO 09/05/22 23:56 10 mg ONCE ONE Administration Medical Decision Making Medical Decision Making [facility] Narrative: Patient started losing from postop umbilical postsurgical wound was repaired using Vicryl 4-0 multiple stitches were applied no active bleeding at this time surgicel dressing was applied Lab Data [facility] Lab Attestation statement: I reviewed the patient's lab results. 09/05/22 23:54 09/05/22 23:54 Labs: Lab Results 09/05/22 09/05/22 09/05/22 Range/Units 23:54 23:54 23:54 WBC 8.7 (4.8-10.8) X10*3/uL RBC 3.63 L (4.60-5.80) X10*6/uL Hgb 11.2 L (14.0-18.0) g/dl Hct 34.7 L (42.0-52.0) % MCV 95.6 (80.0-98.0) fL MCH 30.9 (27.0-33.0) pg MCHC 32.3 (31.0-36.0) g/dl RDW 13.3 (11.0-16.0) % Plt Count 263 D (160-400) X10*3/uL MPV 9.3 L (9.4-12.4) fL Immature Gran % (Auto) 0.5 H (0.0-0.4) % Neut % (Auto) 75.8 H (45-73) % Lymph % (Auto) 10.6 L (20-40) % [place] % (Auto) 6.7 (2-11) % Eos % (Auto) 5.6 H (0-4) % Baso % (Auto) 0.8 (0-2) % Lymph # (Auto) 0.9 L (1.2-4.9) X10*3/uL [place] # (Auto) 0.6 (0.1-1.2) X10*3/uL Eos # (Auto) 0.5 H (0.0-0.4) X10*3/uL Baso # (Auto) 0.1 (0.0-0.2) X10*3/uL Abs Immat Gran (auto) 0.04 H (0.00-0.03) X10*3/uL Absolute Neuts (auto) 6.6 (2.0-8.3) x10*3/uL Absolute Nucleated RBC 0.000 (0.0-0.012) X10*3/uL Nucleated RBC % (auto) 0.0 (0.0-0.2) /100WBC Sodium Cancelled Potassium Cancelled Chloride Cancelled Carbon Dioxide Cancelled Anion Gap Cancelled BUN Cancelled Creatinine Cancelled Estim Creat Clear Calc Cancelled Estimated GFR Cancelled Random Glucose Cancelled Calcium Cancelled Total Bilirubin Cancelled AST Cancelled ALT Cancelled Alkaline Phosphatase Cancelled Total Protein Cancelled Albumin Cancelled Blood Type O Negative Antibody Screen NEGATIVE Discharge Plan Discharge Clinical Impression: Surgical wound breakdown Patient Disposition: Home, Self-Care Instructions: Wound Dehiscence (ED) Additional Instructions: Local care of the surgical wound as advised Report to the ER/surgery if worsening of the bleeding Prescriptions: No Action diltiazem HCl 240 mg capsule,extended release 24hr 240 mg PO DAILY Qty: 90 3RF baclofen 20 mg tablet 20 mg PO BID PRN (Reason: pain (scale score 4-6)) 30 Days Qty: 60 3RF oxycodone 5 mg tablet 5 mg PO Q4H MDD 5 PRN (Reason: pain) 14 Days Qty: 70 0RF Rx Instructions: Please use this prescription to taper off medication, two week compassionate prescription. amantadine HCl 100 mg tablet 1 tab PO TID lisinopril 20 mg tablet 1 tab PO DAILY ropinirole 3 mg tablet 6 mg PO DAILY@1200 trazodone 100 mg tablet 3 tab PO BEDTIME PRN (Reason: insomnia) buspirone 10 mg tablet 1 tab PO BID PRN (Reason: Anxiety) cholecalciferol (vitamin D3) [Vitamin D3] 50 mcg (2,000 unit) Tablet 50 mcg PO DAILY tizanidine 4 mg tablet 4 mg PO TID PRN (Reason: muscle spasticity) pantoprazole 40 mg tablet,delayed release (DR/EC) 40 mg PO DAILY@0630 ondansetron HCl 4 mg tablet 4 mg PO DAILY PRN (Reason: Nausea) ropinirole 3 mg tablet 12 mg PO BEDTIME Rx Instructions: starting to reduce to stop levothyroxine 50 mcg tablet 50 mcg PO DAILY@0600 lidocaine 5 % adhesive patch,medicated 1 patch topical BID Rx Instructions: leave on most painful area for up to 12 hrs diclofenac sodium 1 % gel 2 g topical QID PRN (Reason: Inflammation) Rx Instructions: apply to single elbow, wrist or hand; for hand includes palm/fingers/back of hand carbidopa-levodopa 25-100 mg tablet 1 tab PO TID tamsulosin 0.4 mg capsule 0.4 mg PO BID finasteride 5 mg tablet 5 mg PO DAILY multivitamin [Daily Multi-Vitamin] Tablet 1 tab PO DAILY fluticasone propionate 50 mcg/actuation spray,suspension 1 spray intranasal BID Rx Instructions: administer into both nostrils duloxetine 60 mg capsule,delayed release(DR/EC) 60 mg PO DAILY pregabalin 300 mg capsule 300 mg PO BID memantine 10 mg tablet 10 mg PO BID donepezil 10 mg tablet 10 mg PO BEDTIME naloxone [Narcan] 4 mg/actuation spray,non-aerosol 4 mg intranasal Q2M PRN (Reason: opioid overdose) Qty: 2 0RF Rx Instructions: spray 1 dose into ONE nostril; alternate nostrils w each dose until help arrives bisacodyl [Dulcolax (bisacodyl)] 10 mg suppository 10 mg MO DAILY PRN (Reason: Constipation) Hold Instructions: Resume on 09/21/22. hold for loose stools
[2022-09-05 23:59] LABS: MANUAL DIFF FLAG NO
[2022-09-06 00:01] LABS: Basophils Absolute Auto 0.1 X10*3/uL (0.0-0.2); Basophils Percent Auto 0.8 % (0-2); Eosinophils Absolute Auto 0.5 X10*3/uL (0.0-0.4); Eosinophils Percent Auto 5.6 % (0-4); Hematocrit 34.7 % (42.0-52.0); Hemoglobin 11.2 g/dl (14.0-18.0); Imm Gran Abs Auto 0.04 X10*3/uL (0.00-0.03); Imm Gran Pct Auto 0.5 % (0.0-0.4); Lymphocytes Absolute Auto 0.9 X10*3/uL (1.2-4.9); Lymphocytes Percent Auto 10.6 % (20-40); Mean Corpuscular HGB Conc 32.3 g/dl (31.0-36.0); Mean Corpuscular Hemoglobin 30.9 pg (27.0-33.0); Mean Corpuscular Volume 95.6 fL (80.0-98.0); Mean Platelet Volume 9.3 fL (9.4-12.4); Monocytes Absolute Auto 0.6 X10*3/uL (0.1-1.2); Monocytes Percent Auto 6.7 % (2-11); Neutrophils Absolute Auto 6.6 x10*3/uL (2.0-8.3); Neutrophils Percent Auto 75.8 % (45-73); Platelet Count 263 X10*3/uL (160-400); Red Blood Count 3.63 X10*6/uL (4.60-5.80); Red Cell Distribution Width 13.3 % (11.0-16.0); White Blood Count 8.7 X10*3/uL (4.8-10.8)
--- NOTE | 2022-09-06 00:14 | PC.NURSE ---
RN received a call from the lab regarding the pt's hemolyzed chemistry and need for recollect. EDT to bedside to recollect while MD still at bedside for suture repair. Per MD he does not need a chemistry recollect as the pt is set for dc home. MD reported placing a couple sutures in the pt's abdomen with bleeding stopped. He is requesting that the pt be assisted to stand and complete and ambulation trial, if bleeding does not resume pt will be cleared for dc home.
[2022-09-06] MEDS: oxyCODONE HCl Immed Release 5 MG TABLET 10 MG PO (00:20)
[2022-09-06] MEDS: Lidocaine HCl 1 % MPF 2 ML VIAL 4 ML INFILTRATI (00:21)
--- NOTE | 2022-09-06 01:13 | PC.NURSE ---
Float RN to bedside for ambulation trial per MD request. Pt supine><sit with 1 assist, stood without assistance and was noted to ambulate with even and steady gait with use of two wheel walker and stand by assist. Pt reported increase in pain upon standing and ambulating which he reports has been his baseline. Upon return back to bedside pt noted to have minimal bleeding noted to umbilical region where MD previously placed sutures. MD aware and plan for surgicel application and then discharge.
[2022-09-06 01:47] VITALS: BP 127/58; PULSE 82; RESP 16; O2SAT 96
--- NOTE | 2022-09-06 01:47 | MHC.EDTECH ---
Patient is resting comfortably at this time, Vitals were taken, and call rivera is within reach.
== END 2022-09-06 02:14 | disposition home or self-care (01) ==
PROVIDERS: Emergency Provider Internal Medicine; PCP Internal Medicine
DX: K91.840 Postprocedural hemorrhage of a digestive system organ or structure following a digestive system procedure (principal); K94.09 Other complications of colostomy; T81.31XA Disruption of external operation (surgical) wound, not elsewhere classified, initial encounter; Y83.8 Other surgical procedures as the cause of abnormal reaction of the patient, or of later complication, without mention of misadventure at the time of the procedure; Y92.9 Unspecified place or not applicable; Y82.8 Other medical devices associated with adverse incidents
CPT/HCPCS: 36415; 80053; 85025; 86850; 86900; 86901; 99284

== ENCOUNTER 2022-09-06 11:14 | Inpatient (IN) | payer MEDICARE, OTHER, SELFPAY ==
[2022-09-06] VITALS (18 sets, daily range): BP systolic 130–168; BP diastolic 66–114; PULSE 85–96; RESP 8–20; TEMP 36.4–36.8; O2SAT 93–97; BMI 29.8
--- NOTE | ~2022-09-06 | CT_ITS ---
EXAMINATION: CT ABDOMEN AND PELVIS WITHOUT CONTRAST CLINICAL INFORMATION: Destruction of wound. COMPARISON: CT abdomen pelvis 05/28/2022 TECHNIQUE: Multidetector volumetric imaging was performed from the superior aspect of the liver through the pubic symphysis. Sagittal and coronal reformatted images were obtained on the technologist's workstation. This CT examination was performed using dose optimization techniques as appropriate, variously including the following: *Automated exposure control *Adjustment of mA and/or kV according to patient size (this includes techniques or standardized protocols for targeted exams where dose is matched to indication/reason for exam; i.e. extremities or head) *Use of iterative reconstruction technique DLP: 774 mGy-cm FINDINGS: LUNG BASES: There is platelike atelectasis scarring right lung base. LIVER, GALLBLADDER, AND BILIARY TREE: The liver is normal in size, shape, and attenuation. No focal hepatic lesion or biliary ductal dilatation is present. The gallbladder has been surgically removed. PANCREAS: Unremarkable. SPLEEN: Unremarkable. ADRENAL GLANDS: Unremarkable. KIDNEYS AND URETERS: The kidneys are normal in size, shape, and attenuation. No hydronephrosis, hydroureter, or calculi seen. No perinephric stranding. There are no new low-density bilateral renal cysts. BLADDER: Unremarkable. GASTROINTESTINAL TRACT: Mild prominence of stomach from recently ingested food. The small bowel loops are nondistended. A segment of small bowel loop extends into the area of midline incision where there is mild rectus abdominis diastasis. No obstruction seen. Postoperative haziness is seen in the stomach is centrally in the anterior gall. There is small amount of free fluid in the upper/mid pelvis. ABDOMINAL WALL: There is a large area of midline rectus diastases extending from above the umbilicus to the lower abdomen. Nonspecific haziness is seen in bilateral flank. LYMPH NODES: Normal. VASCULAR: Unremarkable. PELVIC VISCERA: Postsurgical changes are seen along the mid sigmoid colon with widely patent lumen. OSSEOUS STRUCTURES: There are degenerative disc changes with spondylosis throughout lumbar spine. No aggressive lytic or sclerotic process seen. CT/CT abdomen pelvis wo IV con IMPRESSION: 1. Postsurgical changes along the mid sigmoid colon with widely patent lumen. 2. There is a large area of midline rectus diastasis extending from above the umbilicus to the lower abdomen. A segment of small bowel loop extends into the area of midline incision. No obstruction seen. 3. There is small amount of free fluid in the upper/mid pelvis. 4. Bilateral renal cysts. Fleischner guidelines were followed.
--- NOTE | 2022-09-06 11:39 | PHA.MEDREC ---
Pharmacy Consult ? Medication Reconciliation Pharmacy has completed the medication reconciliation. Pt just discharged, copied from discharge summary
[2022-09-06] MEDS: Lactated Ringers 1,000 ML 100 ML IVCONT ×2 (11:58→21:45)
[2022-09-06] MEDS: fentaNYL citrate/PF 100 MCG/2 ML VIAL 25 MCG IVPUSH ×4 (14:14→14:47)
[2022-09-06] MEDS: Acetaminophen 1,000 MG/100 ML PIGGYBACK 400 MG IV ×3 (14:15→22:28)
--- NOTE | 2022-09-06 14:16 | P.OP_ITS ---
Operative Note Operative Note Date of Service: 09/06/22 Narrative: Preoperative diagnosis: Fascial dehiscence status post closure of colostomy Postoperative diagnosis: Procedure: Same closure of fascial dehiscence, retention suture placement Surgeon: Aric Mcneill MD Manager Quantitative: Keli Zelaya PA-C Anesthesia: General endotracheal Indications for procedure: 71-year-old male patient with a previous history of perforated sigmoid diverticulitis status post Milla procedure, now 1 week post closure of colostomy. Patient noted bleeding from the incision was seen emergency department last night. The bleeding continued today and he was subsequently evaluated in the office. Stat CT confirmed fascial dehiscence. He presents now for closure of fascial dehiscence. Operative findings: Fascial dehiscence. Bowels intact without evidence of perforation. No abscess identified. Specimen: None Estimated blood loss: 10 mL Complications: None Procedure details: Patient was brought to the OR placed in a supine position. After administering general anesthesia the patient's abdomen was prepped with Betadine and draped in a sterile fashion. Sarabjit were removed and the midline incision reopened. Bowel was immediately identified within the subcutaneous t issue. The bowel was gently dissected free from the surrounding small bowel. There is some mild adhesions which were easily broken up. The bowel was returned to the abdominal cavity. The bowel was examined and no injury noted. No abdominal abscess or fluid collections could be identified. Fascial edges were then further defined using electrocautery. The previously placed interrupted [id number] Polysorb sutures were noted to have pulled through the fascia at multiple levels. The decision was made to place retention sutures. A 1 nylon suture was then placed as a retention suture. Retention suture was placed extra peritoneal to prevent clotheslining intestine. The fascia was then carefully closed using [id number] Maxon sutures in an interrupted fashion. Wounds were then irrigated with saline solution and suctioned dry. Dermis was then reapproximated using interrupted 3-0 Polysorb sutures. Skin was closed with skin sarabjit. Retention sutures were then loosely closed using a silastic tubing to protect skin. Sterile dressings were then applied. The patient tolerated the procedure well. Sponge, instrument, and needle counts reported as correct. The patient was transferred to PACU in stable condition.
[2022-09-06] MEDS: HYDROmorphone HCl 0.5 MG/0.5 ML SYRINGE IVPUSH ×4 (14:50→22:27)
[2022-09-06] MEDS: Carbidopa/Levodopa 25/100 TABLET 1 TAB PO ×2 (17:44→21:33)
[2022-09-06] MEDS: levoFLOXacin/D5W 500 MG/100 ML PIGGYBACK 100 MG IV (17:44)
[2022-09-06] MEDS: rOPINIRole HCL 2 MG TABLET 12 MG PO (21:32)
[2022-09-06] MEDS: Pregabalin 150 MG CAPSULE 300 MG PO (21:32)
[2022-09-06] MEDS: Memantine HCl 10 MG TABLET PO (21:33)
[2022-09-06] MEDS: Tamsulosin HCL 0.4 MG CAPSULE PO (21:33)
[2022-09-06] MEDS: Donepezil HCl 10 MG TABLET PO (21:33)
[2022-09-06] MEDS: amantadine HCL 100 MG CAPSULE PO (21:33)
[2022-09-06] MEDS: traZODone HCL 100 MG TABLET 300 MG PO (21:44)
[2022-09-07] MEDS: HYDROmorphone HCl 0.5 MG/0.5 ML SYRINGE IVPUSH ×6 (01:57→20:49)
[2022-09-07 04:00] VITALS: BP 157/74; PULSE 88; RESP 14; TEMP 36.1; O2SAT 97
[2022-09-07] MEDS: Acetaminophen 1,000 MG/100 ML PIGGYBACK 400 MG IV ×4 (04:57→22:56)
[2022-09-07] MEDS: Levothyroxine Sodium 50 MCG TABLET PO (05:02)
[2022-09-07 07:01] LABS: MANUAL DIFF FLAG NO
[2022-09-07 07:12] LABS: Basophils Percent Auto 0.1 % (0-2); Hematocrit 33.8 % (42.0-52.0); Hemoglobin 10.4 g/dl (14.0-18.0); Imm Gran Abs Auto 0.07 X10*3/uL (0.00-0.03); Imm Gran Pct Auto 0.5 % (0.0-0.4); Lymphocytes Absolute Auto 0.7 X10*3/uL (1.2-4.9); Lymphocytes Percent Auto 4.8 % (20-40); Mean Corpuscular HGB Conc 30.8 g/dl (31.0-36.0); Mean Corpuscular Hemoglobin 30.4 pg (27.0-33.0); Mean Corpuscular Volume 98.8 fL (80.0-98.0); Mean Platelet Volume 9.9 fL (9.4-12.4); Monocytes Percent Auto 7.4 % (2-11); Neutrophils Absolute Auto 12.2 x10*3/uL (2.0-8.3); Neutrophils Percent Auto 87.2 % (45-73); Platelet Count 266 X10*3/uL (160-400); Red Blood Count 3.42 X10*6/uL (4.60-5.80); Red Cell Distribution Width 13.3 % (11.0-16.0)
[2022-09-07 07:19] VITALS: BP 159/74; PULSE 88; RESP 14; TEMP 36.3; O2SAT 99
[2022-09-07 07:29] LABS: Anion Gap 14 (12-20); Blood Urea Nitrogen 12 mg/dL (9-16); Calcium 8.1 mg/dL (8.4-10.2); Carbon Dioxide 29 mmol/L (22-29); Chloride 107 mmol/L (96-108); Creatinine Clr Calc Pharmacy 104.4; Estimated Glomerular Filt Rate > 60; Glucose Random 106 mg/dL (60-115); Potassium 4.6 mmol/L (3.3-5.1); Sodium 145 mmol/L (135-145)
--- NOTE | 2022-09-07 08:04 | PM.PNGS ---
Subjective Subjective Date of Service: 09/07/22 Interval history: Feels ok this morning. Pain everywhere- waiting for analgesics. Passing flatus. Feels hungry. Physical Exam Vital Signs: Vital Signs: Last Vital Signs Temp 97.3 F 09/07/22 07:19 Pulse 88 09/07/22 07:19 Resp 14 09/07/22 07:19 BP 159/74 H 09/07/22 07:19 Pulse Ox 99 09/07/22 07:19 O2 Del Method Nasal Cannula 09/07/22 07:19 O2 Flow Rate 2 09/07/22 07:19 BMI result Body Mass Index 29.8 Const: General: comfortable, no acute distress and alert Orientation/consciousness: patient oriented x3 Resp: Effort & Inspection: normal respiratory effort GI: Inspection: No distended and Yes incision (clean, retention sutures in place, chris intact, scant drainage ) Palpation (GI): Soft to palpation, Tenderness to palpation present (GI) (incisional), no guarding and not rigid Skin: General skin exam: no rashes or lesions noted Neuro: General: patient oriented x3 Objective Data Active Medications Amantadine HCl (Amantadine Hcl 100 Mg Capsule) 100 mg PO TID [facility] Last Admin: 09/06/22 21:33 Dose: 100 mg Documented By: ALFRED Baclofen (Baclofen 20 Mg Tablet) 20 mg PO BID PRN PRN Reason: pain (scale score 4-6) Buspirone HCl (Buspirone Hcl 10 Mg Tablet) 10 mg PO BID PRN PRN Reason: Anxiety Carbidopa/Levodopa (Carbidopa/Levodopa 25/100 Tablet) 1 tab PO TID [facility] Last Admin: 09/06/22 21:33 Dose: 1 tab Documented By: ALFRED Diltiazem HCl (Diltiazem Hcl Cd 240 Mg Cap.Er.Deg) 240 mg PO DAILY [facility]; Protocol Donepezil HCl (Donepezil Hcl 10 Mg Tablet) 10 mg PO BEDTIME [facility] Last Admin: 09/06/22 21:33 Dose: 10 mg Documented By: ALFRED Duloxetine HCl (Duloxetine Hcl 60 Mg Capsule.Dr) 60 mg PO DAILY [facility] Finasteride (Finasteride 5 Mg Tablet) 5 mg PO DAILY [facility] Fluticasone Propionate (Fluticasone Propionate Nasal 16 Gm [place]) 1 spray NOSTRIL-B BID [facility] Last Admin: 09/06/22 22:10 Dose: Not Given Documented By: ALFRED Non-Admin Reason: Med Not Available Hydromorphone HCl (Hydromorphone Hcl 0.5 Mg/0.5 Ml Syringe) 0.5 mg IVPUSH Q10M PRN; Protocol PRN Reason: Pain, Moderate(Pain Scale 4-6) Last Admin: 09/06/22 15:11 Dose: 0.5 mg Documented By: EMMANUEL Hydromorphone HCl (Hydromorphone Hcl 0.5 Mg/0.5 Ml Syringe) 0.5 mg IVPUSH Q3H PRN; Protocol PRN Reason: Pain, Severe (Pain Scale 7-10) Last Admin: 09/07/22 04:58 Dose: 0.5 mg Documented By: ALFRED Lactated Ringer's (Lr) 1,000 mls @ 100 mls/hr IVCONT .Q10H [facility] Last Admin: 09/06/22 21:45 Dose: 100 mls/hr Documented By: ALFRED Acetaminophen (Ofirmev) 1,000 mg in 100 mls @ 400 mls/hr IV Q6H [facility] Last Infusion: 09/07/22 05:41 Dose: 0 mls/hr Documented By: ALFRED Levofloxacin (Levaquin) 500 mg in 100 mls @ 100 mls/hr IV Q24H [facility] Last Infusion: 09/06/22 18:58 Dose: 0 mls/hr Documented By: DOBROB Levothyroxine Sodium (Levothyroxine Sodium 50 Mcg Tablet) 50 mcg PO DAILY@0600 [facility] Last Admin: 09/07/22 05:02 Dose: 50 mcg Documented By: ALFRED Lisinopril (Lisinopril 20 Mg Tablet) 20 mg PO DAILY [facility]; Protocol Memantine (Memantine Hcl 10 Mg Tablet) 10 mg PO BID [facility] Last Admin: 09/06/22 21:33 Dose: 10 mg Documented By: ALFRED Naloxone HCl (Naloxone Hcl Nasal 4 Mg [place]) 4 mg NOSTRILALT Q2M PRN PRN Reason: opioid overdose Ondansetron HCl (Ondansetron Hcl 4 Mg/2 Ml Vial) 4 mg IVPUSH ONCE PRN PRN Reason: Nausea and Vomiting Ondansetron HCl (Ondansetron Hcl 4 Mg/2 Ml Vial) 4 mg IVPUSH QID PRN PRN Reason: Nausea Pharmacy Consult (Consult Rx Perform Med Rec) 1 each MISCELLANE ONCE PRN PRN Reason: Consult order Pregabalin (Pregabalin 150 Mg Capsule) 300 mg PO BID [facility] Last Admin: 09/06/22 21:32 Dose: 300 mg Documented By: ALFRED Ropinirole HCl (Ropinirole Hcl 1 Mg Tablet) 6 mg PO DAILY@1200 DEBBIE Ropinirole HCl (Ropinirole Hcl 2 Mg Tablet) 12 mg PO BEDTIME [facility] Last Admin: 09/06/22 21:32 Dose: 12 mg Documented By: ALFRED Tamsulosin HCl (Tamsulosin Hcl 0.4 Mg Capsule) 0.4 mg PO BID [facility] Last Admin: 09/06/22 21:33 Dose: 0.4 mg Documented By: ALFRED Tizanidine HCl (Tizanidine Hcl 4 Mg Tablet) 4 mg PO TID PRN PRN Reason: muscle spasticity Trazodone HCl (Trazodone Hcl 100 Mg Tablet) 300 mg PO BEDTIME PRN PRN Reason: insomnia Last Admin: 09/06/22 21:44 Dose: 300 mg Documented By: ALFRED Labs 09/07/22 05:57 09/07/22 05:57 Labs: Laboratory Results - last 24 hr 09/07/22 09/07/22 05:57 05:57 MCV 98.8 H MCH 30.4 MCHC 30.8 L RDW 13.3 Plt Count 266 MPV 9.9 Immature Gran % (Auto) 0.5 H Neut % (Auto) 87.2 H Lymph % (Auto) 4.8 L [place] % (Auto) 7.4 Eos % (Auto) 0.0 Baso % (Auto) 0.1 Lymph # (Auto) 0.7 L [place] # (Auto) 1.0 Eos # (Auto) 0.0 Baso # (Auto) 0.0 Abs Immat Gran (auto) 0.07 H Absolute Neuts (auto) 12.2 H Absolute Nucleated RBC 0.000 Nucleated RBC % (auto) 0.0 Anion Gap 14 Estim Creat Clear Calc 104.4 Estimated GFR > 60 Random Glucose 106 Calcium 8.1 L Procedures Date of Service Date of Service: 09/07/22 Progress Note: A&P Assessment and plan (1) History of colostomy reversal: Status: Acute (2) Abdominal wound dehiscence: Status: Acute Plan 71 year old male 1 week s/p colostomy reversal who presented with increased abd wound drainage found to have wound dehiscence. He is now POD #1 s/p closure of fascial dehiscence, retention suture placement. Doing fairly well post op, very sore all over. Abd exam benign with clean incision, retentions in place, no evidence of dehiscence recurrence. Will resume home oxycodone 5mg q4h, dilaudid IV PRN, ofirmev. Will advance to solid diet. Leukocytosis this am- likely reactive, will repeat in AM. OOB and IS use. Time Spent With Patient Time: Total time managing care of this patient today ____ minutes. Quality Stroke Does the patient have a stroke diagnosis?: No VTE Prior VTE?: No VTE Risk Level:: Surgical - high VTE Device Contraindication: N/A - Device Ordered VTE Drug Contraindication: N/A - Med Ordered
[2022-09-07] MEDS: DULoxetine HCl 60 MG CAPSULE.DR PO (08:19)
[2022-09-07] MEDS: Pregabalin 150 MG CAPSULE 300 MG PO ×2 (08:20→19:46)
[2022-09-07] MEDS: oxyCODONE HCl Immed Release 5 MG TABLET PO ×4 (08:20→19:46)
[2022-09-07] MEDS: Finasteride 5 MG TABLET PO (08:20)
[2022-09-07] MEDS: lisinopriL 20 MG TABLET PO (08:20)
[2022-09-07] MEDS: dilTIAZem HCL CD 240 MG CAP.ER.DEG PO (08:20)
[2022-09-07] MEDS: Tamsulosin HCL 0.4 MG CAPSULE PO ×2 (08:20→19:46)
[2022-09-07] MEDS: Memantine HCl 10 MG TABLET PO ×2 (08:20→19:47)
[2022-09-07] MEDS: amantadine HCL 100 MG CAPSULE PO ×3 (08:20→19:46)
--- NOTE | 2022-09-07 09:20 | MHC.CM.PN ---
Addendum entered by Katie Fowler 09/07/22 09:33: [facility] has accepted the patient. [facility] has been notified that the patient has gone with another agency. Original Note: IMM 09/07/22 Male S/P surgery for Dehisced surgical wound. Patient was dc 09/01 S/P reversal of colostomy. He is S/P surgical intervention 09/06/22. Patient lives with his . He uses a walker for unsteady gait. His is near by when he showers, independently. The patient would like to be discharged with [facility]. He was sent home with [facility] 09/01. They did not send a nurse to open the case; but he was a PT start of care. A referral has been sent to [facility] at PT/ request. DP home with [facility]. Patients will provide transport home. He has been vaxxed for covid x3. A HCP is on file.
[2022-09-07] MEDS: Fluticasone Propionate Nasal 16 GM SPRAY 1 SPRAY NOSTRIL-B ×2 (09:22→19:53)
[2022-09-07] MEDS: Carbidopa/Levodopa 25/100 TABLET 1 TAB PO ×3 (09:22→19:46)
[2022-09-07] MEDS: Lactated Ringers 1,000 ML 100 ML IVCONT (09:24)
--- NOTE | 2022-09-07 11:03 | HO.PM.IMPN ---
Subjective Subjective Date of Service: 09/07/22 Interval History: Seen in examined. No new medical issues. He was recently in the hospital and discharge on 09/01 and coming back with abd wound drainage found to have wound dehiscence. He is now POD #1 s/p closure of fascial dehiscence, retention suture placement. No new medical issues, afebril, BP slighty high, no chest pain, no sob Review of Systems no chest pain, no sob, no dizznes Physical Exam Vital Signs: Vital Signs: Last Vital Signs Temp 97.3 F 09/07/22 07:19 Pulse 88 09/07/22 07:19 Resp 14 09/07/22 07:19 BP 159/74 H 09/07/22 07:19 Pulse Ox 99 09/07/22 07:19 O2 Del Method Nasal Cannula 09/07/22 07:19 O2 Flow Rate 2 09/07/22 07:19 BMI result Body Mass Index 29.8 Const: Other: Constitutional: Alert, in no distress, Mental Status: Oriented to person, place and time. Eyes: Pupils are equal, round and reactive to light. Ear, Nose and Throat: Oropharynx clear, mucous membranes moist. Respiratory: Clear to auscultation. No wheezing, rales or rhonchi. Cardiovascular: S1 S2 regular. No murmurs, rubs or gallops. Gastrointestinal: Abdomen soft, non-tender, wound is covered Neurologic: Cranial nerves II-XII grossly intact. No focal neurological deficits. Moves all extremities spontaneously.? Skin: No rashes or lesions.? Musculoskeletal: No cyanosis or clubbing. Psychiatric: Normal mood and affect? Objective Data Active Medications Amantadine HCl (Amantadine Hcl 100 Mg Capsule) 100 mg PO TID [facility]CLUDES [facility] Last Admin: 09/07/22 08:20 Dose: 100 mg Documented By: ASMITA Baclofen (Baclofen 20 Mg Tablet) 20 mg PO BID PRN PRN Reason: pain (scale score 4-6) Buspirone HCl (Buspirone Hcl 10 Mg Tablet) 10 mg PO BID PRN PRN Reason: Anxiety Carbidopa/Levodopa (Carbidopa/Levodopa 25/100 Tablet) 1 tab PO TID [facility]CLUDES [facility] Last Admin: 09/07/22 09:22 Dose: 1 tab Documented By: ASMITA Diltiazem HCl (Diltiazem Hcl Cd 240 Mg Cap.Er.Deg) 240 mg PO DAILY [facility]; Protocol Last Admin: 09/07/22 08:20 Dose: 240 mg Documented By: ASMITA Donepezil HCl (Donepezil Hcl 10 Mg Tablet) 10 mg PO BEDTIME [facility] Last Admin: 09/06/22 21:33 Dose: 10 mg Documented By: ALFRED Duloxetine HCl (Duloxetine Hcl 60 Mg Capsule.Dr) 60 mg PO DAILY [facility] Last Admin: 09/07/22 08:19 Dose: 60 mg Documented By: ASMITA Finasteride (Finasteride 5 Mg Tablet) 5 mg PO DAILY COUNT [facility] Last Admin: 09/07/22 08:20 Dose: 5 mg Documented By: ASMITA Fluticasone Propionate (Fluticasone Propionate Nasal 16 Gm [place]) 1 spray NOSTRIL-B BID COUNT [facility]CLUDES [facility] Last Admin: 09/07/22 09:22 Dose: 1 spray Documented By: ASMITA Hydromorphone HCl (Hydromorphone Hcl 0.5 Mg/0.5 Ml Syringe) 0.5 mg IVPUSH Q10M PRN; Protocol PRN Reason: Pain, Moderate(Pain Scale 4-6) Last Admin: 09/06/22 15:11 Dose: 0.5 mg Documented By: EMMANUEL Hydromorphone HCl (Hydromorphone Hcl 0.5 Mg/0.5 Ml Syringe) 0.5 mg IVPUSH Q3H PRN; Protocol PRN Reason: Pain, Severe (Pain Scale 7-10) Last Admin: 09/07/22 09:22 Dose: 0.5 mg Documented By: ASMITA Lactated Ringer's (Lr) 1,000 mls @ 100 mls/hr IVCONT .Q10H COUNT INCLUDES [facility] Last Admin: 09/07/22 09:24 Dose: 100 mls/hr Documented By: ASMITA Acetaminophen (Ofirmev) 1,000 mg in 100 mls @ 400 mls/hr IV Q6H [facility] Last Admin: 09/07/22 10:55 Dose: 400 mls/hr Documented By: ASMITA Levofloxacin (Levaquin) 500 mg in 100 mls @ 100 mls/hr IV Q24H [facility] Last Infusion: 09/06/22 18:58 Dose: 0 mls/hr Documented By: BROMarycruz Levothyroxine Sodium (Levothyroxine Sodium 50 Mcg Tablet) 50 mcg PO DAILY@0600 [facility] Last Admin: 09/07/22 05:02 Dose: 50 mcg Documented By: ALFRED Lisinopril (Lisinopril 20 Mg Tablet) 20 mg PO DAILY COUNT [facility]; Protocol Last Admin: 09/07/22 08:20 Dose: 20 mg Documented By: ASMITA Memantine (Memantine Hcl 10 Mg Tablet) 10 mg PO BID COUNT [facility] Last Admin: 09/07/22 08:20 Dose: 10 mg Documented By: ASMITA Naloxone HCl (Naloxone Hcl Nasal 4 Mg [place]) 4 mg NOSTRILALT Q2M PRN PRN Reason: opioid overdose Ondansetron HCl (Ondansetron Hcl 4 Mg/2 Ml Vial) 4 mg IVPUSH ONCE PRN PRN Reason: Nausea and Vomiting Ondansetron HCl (Ondansetron Hcl 4 Mg/2 Ml Vial) 4 mg IVPUSH QID PRN PRN Reason: Nausea Oxycodone HCl (Oxycodone Hcl Immed Release 5 Mg Tablet) 5 mg PO Q4H COUNT [facility]CLUDES [facility] Last Admin: 09/07/22 08:20 Dose: 5 mg Documented By: ASMITA Pharmacy Consult (Consult Rx Perform Med Rec) 1 each MISCELLANE ONCE PRN PRN Reason: Consult order Pregabalin (Pregabalin 150 Mg Capsule) 300 mg PO BID COUNT [facility]CLUDES [facility] Last Admin: 09/07/22 08:20 Dose: 300 mg Documented By: ASMIAT Ropinirole HCl (Ropinirole Hcl 1 Mg Tablet) 6 mg PO DAILY@1200 COUNT [facility]CLUDES [facility] Ropinirole HCl (Ropinirole Hcl 2 Mg Tablet) 12 mg PO BEDTIME COUNT [facility]CLUDES [facility] Last Admin: 09/06/22 21:32 Dose: 12 mg Documented By: ALFRED Tamsulosin HCl (Tamsulosin Hcl 0.4 Mg Capsule) 0.4 mg PO BID COUNT [facility]CLUDES [facility] Last Admin: 09/07/22 08:20 Dose: 0.4 mg Documented By: ASMITA Tizanidine HCl (Tizanidine Hcl 4 Mg Tablet) 4 mg PO TID PRN PRN Reason: muscle spasticity Trazodone HCl (Trazodone Hcl 100 Mg Tablet) 300 mg PO BEDTIME PRN PRN Reason: insomnia Last Admin: 09/06/22 21:44 Dose: 300 mg Documented By: ALFRED Labs 09/07/22 05:57 09/07/22 05:57 Labs: Laboratory Results - last 24 hr 09/07/22 09/07/22 05:57 05:57 MCV 98.8 H MCH 30.4 MCHC 30.8 L RDW 13.3 Plt Count 266 MPV 9.9 Immature Gran % (Auto) 0.5 H Neut % (Auto) 87.2 H Lymph % (Auto) 4.8 L [place] % (Auto) 7.4 Eos % (Auto) 0.0 Baso % (Auto) 0.1 Lymph # (Auto) 0.7 L [place] # (Auto) 1.0 Eos # (Auto) 0.0 Baso # (Auto) 0.0 Abs Immat Gran (auto) 0.07 H Absolute Neuts (auto) 12.2 H Absolute Nucleated RBC 0.000 Nucleated RBC % (auto) 0.0 Anion Gap 14 Estim Creat Clear Calc 104.4 Estimated GFR > 60 Random Glucose 106 Calcium 8.1 L Assessment and Plan (1) Abdominal wound dehiscence: Status: Acute (2) Hypothyroidism: Status: Acute (3) GERD (gastroesophageal reflux disease): Status: Acute (4) BPH (benign prostatic hyperplasia): Status: Acute Plan 71 year old male with history of Parkinson's disease, chronic back pain, HTN, BPH, hypothyroidism admitted to surgery s/p colostomy reversal and presented with increased abd wound drainage found to have wound dehiscence s/p closure of fascial dehiscence, retention suture placement on 09/06 Wound management by surgery hypothyroidism continue Synthroid. chronic pain pain/RLS on multiple medications,baclofen, duloxetine, Requip and pregabalin,? can resume all home medications Parksinon's disease/dementia continue carbidopan, amantadine? and Aricept BPH proscar, and flomax . HTN continue? diltiazem and lisinopril FRANCES not complaint with CPAP at baseline. GERD PPI Discussed with pt and signicant other Time Spent With Patient Time: Total time managing care of this patient today ____ minutes. Quality Stroke Does the patient have a stroke diagnosis?: No VTE Prior VTE?: No VTE Risk Level:: Surgical - high VTE Device Contraindication: N/A - Device Ordered VTE Drug Contraindication: N/A - Med Ordered
[2022-09-07] MEDS: rOPINIRole HCL 1 MG TABLET 6 MG PO (12:45)
[2022-09-07 14:42] VITALS: BP 167/74; PULSE 91; RESP 18; TEMP 36.7; O2SAT 98
[2022-09-07 15:21] VITALS: BP 151/68; PULSE 90; RESP 18; TEMP 37.2; O2SAT 94
[2022-09-07] MEDS: levoFLOXacin/D5W 500 MG/100 ML PIGGYBACK 100 MG IV (16:48)
[2022-09-07 19:22] VITALS: BP 161/74; PULSE 83; RESP 18; TEMP 37.1; O2SAT 96
[2022-09-07] MEDS: rOPINIRole HCL 2 MG TABLET 12 MG PO (19:44)
[2022-09-07] MEDS: Donepezil HCl 10 MG TABLET PO (19:45)
[2022-09-07] MEDS: traZODone HCL 100 MG TABLET 300 MG PO (21:49)
[2022-09-07] MEDS: TiZANidine HCL 4 MG TABLET PO (21:50)
[2022-09-08] MEDS: oxyCODONE HCl Immed Release 5 MG TABLET PO ×6 (00:22→20:21)
[2022-09-08 03:28] VITALS: BP 162/71; PULSE 92; RESP 16; TEMP 36.8; O2SAT 94
[2022-09-08] MEDS: Acetaminophen 1,000 MG/100 ML PIGGYBACK 400 MG IV ×4 (04:58→22:45)
[2022-09-08] MEDS: Levothyroxine Sodium 50 MCG TABLET PO (05:21)
--- NOTE | 2022-09-08 07:36 | P.PNGS_ITS ---
Agree with the assessment and plan. Overall patient is doing well with no evidence of dehiscence. Consult physical therapy for ambulation training in preparation for discharge to home. No BM yet. Tolerating regular diet without nausea or vomiting. Will recheck CBC in a.m.. Subjective Subjective Date of Service: 09/08/22 Interval history: Had a good night, slept well. Abd pain has been well controlled with PO and IV analgesics. Tolerating solid diet. Passing flatus. Was OOB to recliner yesterday. Would like to ambulate halls today. Physical Exam Vital Signs: Vital Signs: Last Vital Signs Temp 98.3 F 09/08/22 03:28 Pulse 92 09/08/22 03:28 Resp 16 09/08/22 03:28 BP 162/71 H 09/08/22 03:28 Pulse Ox 94 09/08/22 03:28 O2 Del Method Room Air 09/08/22 03:28 O2 Flow Rate 2 09/07/22 14:42 BMI result Body Mass Index 29.8 Const: General: comfortable, no acute distress, well developed and alert Resp: Effort & Inspection: normal respiratory effort GI: Inspection: No distended and Yes incision (clean appearing, retention sutures in place, surrounding erythema improved) Palpation (GI): Soft to palpation, Tenderness to palpation present (GI) (mild, incisional), no guarding and not rigid Skin: General skin exam: no rashes or lesions noted Neuro: General: moves all extremities Objective Data Active Medications Amantadine HCl (Amantadine Hcl 100 Mg Capsule) 100 mg PO TID [facility] Last Admin: 09/07/22 19:46 Dose: 100 mg Documented By: MACIEJ Baclofen (Baclofen 20 Mg Tablet) 20 mg PO BID PRN PRN Reason: pain (scale score 4-6) Buspirone HCl (Buspirone Hcl 10 Mg Tablet) 10 mg PO BID PRN PRN Reason: Anxiety Carbidopa/Levodopa (Carbidopa/Levodopa 25/100 Tablet) 1 tab PO TID [facility] Last Admin: 09/07/22 19:46 Dose: 1 tab Documented By: MACIEJ Diltiazem HCl (Diltiazem Hcl Cd 240 Mg Cap.Er.Deg) 240 mg PO DAILY [facility]; Protocol Last Admin: 09/07/22 08:20 Dose: 240 mg Documented By: ASMITA Donepezil HCl (Donepezil Hcl 10 Mg Tablet) 10 mg PO BEDTIME [facility] Last Admin: 09/07/22 19:45 Dose: 10 mg Documented By: MACIEJ Duloxetine HCl (Duloxetine Hcl 60 Mg Capsule.Dr) 60 mg PO DAILY [facility] Last Admin: 09/07/22 08:19 Dose: 60 mg Documented By: ASMITA Finasteride (Finasteride 5 Mg Tablet) 5 mg PO DAILY [facility] Last Admin: 09/07/22 08:20 Dose: 5 mg Documented By: ASMITA Fluticasone Propionate (Fluticasone Propionate Nasal 16 Gm [place]) 1 spray NOSTRIL-B BID [facility] Last Admin: 09/07/22 19:53 Dose: 1 spray Documented By: MACIEJ Hydromorphone HCl (Hydromorphone Hcl 0.5 Mg/0.5 Ml Syringe) 0.5 mg IVPUSH Q3H PRN; Protocol PRN Reason: Pain, Severe (Pain Scale 7-10) Last Admin: 09/07/22 20:49 Dose: 0.5 mg Documented By: MACIEJ Acetaminophen (Ofirmev) 1,000 mg in 100 mls @ 400 mls/hr IV Q6H [facility] Last Infusion: 09/08/22 05:19 Dose: 0 mls/hr Documented By: MACIEJ Levofloxacin (Levaquin) 500 mg in 100 mls @ 100 mls/hr IV Q24H [facility] Last Infusion: 09/07/22 18:10 Dose: 0 mls/hr Documented By: DOBROB Levothyroxine Sodium (Levothyroxine Sodium 50 Mcg Tablet) 50 mcg PO DAILY@0600 [facility] Last Admin: 09/08/22 05:21 Dose: 50 mcg Documented By: MACIEJ Lisinopril (Lisinopril 20 Mg Tablet) 20 mg PO DAILY [facility]; Protocol Last Admin: 09/07/22 08:20 Dose: 20 mg Documented By: ASMITA Memantine (Memantine Hcl 10 Mg Tablet) 10 mg PO BID [facility] Last Admin: 09/07/22 19:47 Dose: 10 mg Documented By: MACIEJ Naloxone HCl (Naloxone Hcl Nasal 4 Mg [place]) 4 mg NOSTRILALT Q2M PRN PRN Reason: opioid overdose Ondansetron HCl (Ondansetron Hcl 4 Mg/2 Ml Vial) 4 mg IVPUSH QID PRN PRN Reason: Nausea Oxycodone HCl (Oxycodone Hcl Immed Release 5 Mg Tablet) 5 mg PO Q4H [facility] Last Admin: 09/08/22 03:51 Dose: 5 mg Documented By: MACIEJ Pharmacy Consult (Consult Rx Perform Med Rec) 1 each MISCELLANE ONCE PRN PRN Reason: Consult order Pregabalin (Pregabalin 150 Mg Capsule) 300 mg PO BID [facility] Last Admin: 09/07/22 19:46 Dose: 300 mg Documented By: MACIEJ Ropinirole HCl (Ropinirole Hcl 1 Mg Tablet) 6 mg PO DAILY@1200 [facility] Last Admin: 09/07/22 12:45 Dose: 6 mg Documented By: ASMITA Ropinirole HCl (Ropinirole Hcl 2 Mg Tablet) 12 mg PO BEDTIME [facility] Last Admin: 09/07/22 19:44 Dose: 12 mg Documented By: MACIEJ Tamsulosin HCl (Tamsulosin Hcl 0.4 Mg Capsule) 0.4 mg PO BID [facility] Last Admin: 09/07/22 19:46 Dose: 0.4 mg Documented By: MACIEJ Tizanidine HCl (Tizanidine Hcl 4 Mg Tablet) 4 mg PO TID PRN PRN Reason: muscle spasticity Last Admin: 09/07/22 21:50 Dose: 4 mg Documented By: MACIEJ Trazodone HCl (Trazodone Hcl 100 Mg Tablet) 300 mg PO BEDTIME PRN PRN Reason: insomnia Last Admin: 09/07/22 21:49 Dose: 300 mg Documented By: MACIEJ Labs 09/07/22 05:57 09/07/22 05:57 Procedures Date of Service Date of Service: 09/08/22 Progress Note: A&P Assessment and plan (1) Abdominal wound dehiscence: Status: Acute Plan 71 year old male 1 week s/p colostomy reversal who presented with increased abd wound drainage found to have wound dehiscence. He is now POD #2 s/p closure of fascial dehiscence, retention suture placement. Continues to do well post op. Abd exam benign with clean incision, retentions in place, no evidence of dehiscence recurrence. Continue pain control. CBC pending this am. OOB and IS use. Likely home over the weekend. Time Spent With Patient Time: Total time managing care of this patient today ____ minutes. Quality Stroke Does the patient have a stroke diagnosis?: No VTE Prior VTE?: No VTE Risk Level:: Surgical - high VTE Device Contraindication: N/A - Device Ordered VTE Drug Contraindication: N/A - Med Ordered
[2022-09-08 07:56] VITALS: BP 136/63; PULSE 77; RESP 18; TEMP 36.9; O2SAT 94
[2022-09-08] MEDS: Memantine HCl 10 MG TABLET PO ×2 (08:06→20:19)
[2022-09-08] MEDS: Tamsulosin HCL 0.4 MG CAPSULE PO ×2 (08:06→20:20)
[2022-09-08] MEDS: amantadine HCL 100 MG CAPSULE PO ×3 (08:06→20:21)
[2022-09-08] MEDS: dilTIAZem HCL CD 240 MG CAP.ER.DEG PO (08:06)
[2022-09-08] MEDS: Pregabalin 150 MG CAPSULE 300 MG PO ×2 (08:06→20:20)
[2022-09-08] MEDS: lisinopriL 20 MG TABLET PO (08:06)
[2022-09-08] MEDS: Finasteride 5 MG TABLET PO (08:07)
[2022-09-08] MEDS: DULoxetine HCl 60 MG CAPSULE.DR PO (08:07)
[2022-09-08] MEDS: Fluticasone Propionate Nasal 16 GM SPRAY 1 SPRAY NOSTRIL-B ×2 (08:08→20:22)
[2022-09-08] MEDS: Carbidopa/Levodopa 25/100 TABLET 1 TAB PO ×3 (08:09→20:18)
--- NOTE | 2022-09-08 08:19 | P.PNIM_ITS ---
Subjective Subjective Date of Service: 09/08/22 Interval History: Doing well, no new issues Review of Systems no chest pain, no sob, no dizznes Physical Exam Vital Signs: Vital Signs: Last Vital Signs Temp 98.4 F 09/08/22 07:56 Pulse 77 09/08/22 07:56 Resp 18 09/08/22 07:56 BP 136/63 09/08/22 07:56 Pulse Ox 94 09/08/22 07:56 O2 Del Method Room Air 09/08/22 07:56 O2 Flow Rate 2 09/07/22 14:42 BMI result Body Mass Index 29.8 Const: Other: Constitutional: Alert, in no distress, Respiratory: Clear to auscultation. No wheezing, rales or rhonchi. Cardiovascular: S1 S2 regular. No murmurs, rubs or gallops. Gastrointestinal: Abdomen soft, non-tender, wound is covered Skin: No rashes or lesions.? Musculoskeletal: No cyanosis or clubbing. Psychiatric: Normal mood and affect? Objective Data Active Medications Amantadine HCl (Amantadine Hcl 100 Mg Capsule) 100 mg PO TID [facility] Last Admin: 09/08/22 08:06 Dose: 100 mg Documented By: XIOMARA Baclofen (Baclofen 20 Mg Tablet) 20 mg PO BID PRN PRN Reason: pain (scale score 4-6) Buspirone HCl (Buspirone Hcl 10 Mg Tablet) 10 mg PO BID PRN PRN Reason: Anxiety Carbidopa/Levodopa (Carbidopa/Levodopa 25/100 Tablet) 1 tab PO TID [facility] Last Admin: 09/08/22 08:09 Dose: 1 tab Documented By: XIOMARA Diltiazem HCl (Diltiazem Hcl Cd 240 Mg Cap.Er.Deg) 240 mg PO DAILY [facility]; Prot ocol Last Admin: 09/08/22 08:06 Dose: 240 mg Documented By: XIOMARA Donepezil HCl (Donepezil Hcl 10 Mg Tablet) 10 mg PO BEDTIME [facility] Last Admin: 09/07/22 19:45 Dose: 10 mg Documented By: CASTILLion Duloxetine HCl (Duloxetine Hcl 60 Mg Capsule.Dr) 60 mg PO DAILY [facility] Last Admin: 09/08/22 08:07 Dose: 60 mg Documented By: XIOMARA Finasteride (Finasteride 5 Mg Tablet) 5 mg PO DAILY [facility] Last Admin: 09/08/22 08:07 Dose: 5 mg Documented By: XIOMARA Fluticasone Propionate (Fluticasone Propionate Nasal 16 Gm [place]) 1 spray NOSTRIL-B BID [facility] Last Admin: 09/08/22 08:08 Dose: 1 spray Documented By: XIOMARA Hydromorphone HCl (Hydromorphone Hcl 0.5 Mg/0.5 Ml Syringe) 0.5 mg IVPUSH Q3H PRN; Protocol PRN Reason: Pain, Severe (Pain Scale 7-10) Last Admin: 09/07/22 20:49 Dose: 0.5 mg Documented By: CASTILLion Acetaminophen (Ofirmev) 1,000 mg in 100 mls @ 400 mls/hr IV Q6H [facility] Last Infusion: 09/08/22 05:19 Dose: 0 mls/hr Documented By: MACIEJ Levofloxacin (Levaquin) 500 mg in 100 mls @ 100 mls/hr IV Q24H [facility] Last Infusion: 09/07/22 18:10 Dose: 0 mls/hr Documented By: DOBROMarycruz Levothyroxine Sodium (Levothyroxine Sodium 50 Mcg Tablet) 50 mcg PO DAILY@0600 [facility] Last Admin: 09/08/22 05:21 Dose: 50 mcg Documented By: MACIEJ Lisinopril (Lisinopril 20 Mg Tablet) 20 mg PO DAILY [facility]; Protocol Last Admin: 09/08/22 08:06 Dose: 20 mg Documented By: XIOMARA Memantine (Memantine Hcl 10 Mg Tablet) 10 mg PO BID [facility] Last Admin: 09/08/22 08:06 Dose: 10 mg Documented By: XIOMARA Naloxone HCl (Naloxone Hcl Nasal 4 Mg [place]) 4 mg NOSTRILALT Q2M PRN PRN Reason: opioid overdose Ondansetron HCl (Ondansetron Hcl 4 Mg/2 Ml Vial) 4 mg IVPUSH QID PRN PRN Reason: Nausea Oxycodone HCl (Oxycodone Hcl Immed Release 5 Mg Tablet) 5 mg PO Q4H [facility] Last Admin: 09/08/22 08:05 Dose: 5 mg Documented By: XIOMARA Pharmacy Consult (Consult Rx Perform Med Rec) 1 each MISCELLANE ONCE PRN PRN Reason: Consult order Pregabalin (Pregabalin 150 Mg Capsule) 300 mg PO BID [facility] Last Admin: 09/08/22 08:06 Dose: 300 mg Documented By: XIOMARA Ropinirole HCl (Ropinirole Hcl 1 Mg Tablet) 6 mg PO DAILY@1200 [facility] Last Admin: 09/07/22 12:45 Dose: 6 mg Documented By: ASMITA Ropinirole HCl (Ropinirole Hcl 2 Mg Tablet) 12 mg PO BEDTIME [facility] Last Admin: 09/07/22 19:44 Dose: 12 mg Documented By: MACIEJ Tamsulosin HCl (Tamsulosin Hcl 0.4 Mg Capsule) 0.4 mg PO BID [facility] Last Admin: 09/08/22 08:06 Dose: 0.4 mg Documented By: XIOMARA Tizanidine HCl (Tizanidine Hcl 4 Mg Tablet) 4 mg PO TID PRN PRN Reason: muscle spasticity Last Admin: 09/07/22 21:50 Dose: 4 mg Documented By: MACIEJ Trazodone HCl (Trazodone Hcl 100 Mg Tablet) 300 mg PO BEDTIME PRN PRN Reason: insomnia Last Admin: 09/07/22 21:49 Dose: 300 mg Documented By: MACIEJ Labs 09/07/22 05:57 09/07/22 05:57 Assessment and Plan (1) Abdominal wound dehiscence: Status: Acute (2) Hypothyroidism: Status: Acute (3) GERD (gastroesophageal reflux disease): Status: Acute (4) Restless leg syndrome: Status: Acute (5) Chronic pain syndrome: Status: Acute Plan 71 year old male with history of Parkinson's disease, chronic back pain, HTN, BPH, hypothyroidism admitted to surgery? s/p colostomy reversal and? presented with increased abd wound drainage found to have wound dehiscence s/p closure of fascial dehiscence, retention suture placement on 09/06 Wound management by surgery hypothyroidism continue Synthroid. chronic pain pain/RLS on multiple medications,baclofen, duloxetine, Requip and pregabalin,? can resume all home medications Parksinon's disease/dementia continue carbidopan, amantadine? and Aricept BPH proscar, and flomax . HTN continue? diltiazem and lisinopril FRANCES not complaint with CPAP at baseline. GERD PPI Discussed with pt and signicant other medical issues are stable with no anticipated change in management or meds and therefore singing off and will follow on PRN basis Time Spent With Patient Time: Total time managing care of this patient today ____ minutes. Time Spent With Patient Time: Total time managing care of this patient today ____ minutes. Quality Stroke Does the patient have a stroke diagnosis?: No VTE Prior VTE?: No VTE Risk Level:: Surgical - high VTE Device Contraindication: N/A - Device Ordered VTE Drug Contraindication: N/A - Med Ordered
[2022-09-08] MEDS: HYDROmorphone HCl 0.5 MG/0.5 ML SYRINGE IVPUSH ×2 (09:36→12:27)
[2022-09-08 09:48] VITALS: BP 141/70; PULSE 81; RESP 20; TEMP 37.7; O2SAT 95
[2022-09-08] MEDS: HYDROmorphone HCl 0.5 MG/0.5 ML SYRINGE 0.25 MG IVPUSH (10:16)
[2022-09-08] MEDS: busPIRone HCl 10 MG TABLET PO (11:14)
[2022-09-08] MEDS: rOPINIRole HCL 1 MG TABLET 6 MG PO (11:14)
[2022-09-08 14:55] VITALS: BP 141/70; PULSE 81; O2SAT 95
[2022-09-08 15:17] VITALS: BP 145/67; PULSE 91; RESP 16; TEMP 36.9; O2SAT 95
--- NOTE | 2022-09-08 15:45 | MHC.CLN ---
NUTRITION PATIENT WITH DAIRY ALLERGY PER EMR. ADVISED GSR THAT DOES NOT HAVE MILK ALLERGY BUT DOES TAKE LACTAID MILK. 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 DRINKS LACTAID MILK BUT TAKES ALL OTHER DAIRY PRODUCTS WITHOUT PROBLEM. SPECIFIED THAT EATS REGULAR ICE CREAM, CREAM SOUPS, ETC. DAIRY ALLERGY DELETED AND KITCHEN AWARE.
[2022-09-08] MEDS: levoFLOXacin/D5W 500 MG/100 ML PIGGYBACK 100 MG IV (17:12)
--- NOTE | 2022-09-08 18:36 | PC.NURSE ---
Assumed care at 1500,pt was complaining of abdominal pain. given PRN meds for pain, pain is better controlled after. Hot packs also provided. at bedside.
[2022-09-08 19:18] VITALS: BP 155/72; PULSE 89; RESP 20; TEMP 37.2; O2SAT 95
[2022-09-08] MEDS: rOPINIRole HCL 2 MG TABLET 12 MG PO (20:16)
[2022-09-08] MEDS: Docusate Sodium 100 MG CAPSULE PO (20:18)
[2022-09-08] MEDS: Donepezil HCl 10 MG TABLET PO (20:18)
[2022-09-08] MEDS: traZODone HCL 100 MG TABLET 300 MG PO (22:42)
[2022-09-09] MEDS: oxyCODONE HCl Immed Release 5 MG TABLET PO ×6 (00:29→20:04)
[2022-09-09 03:56] VITALS: BP 131/71; PULSE 82; RESP 18; TEMP 36.9; O2SAT 96
[2022-09-09] MEDS: HYDROmorphone HCl 0.5 MG/0.5 ML SYRINGE IVPUSH (05:19)
[2022-09-09] MEDS: Acetaminophen 1,000 MG/100 ML PIGGYBACK 400 MG IV (05:24)
[2022-09-09] MEDS: Levothyroxine Sodium 50 MCG TABLET PO (05:24)
[2022-09-09 06:22] LABS: MANUAL DIFF FLAG NO
[2022-09-09 06:24] LABS: Basophils Absolute Auto 0.1 X10*3/uL (0.0-0.2); Basophils Percent Auto 0.5 % (0-2); Eosinophils Absolute Auto 0.3 X10*3/uL (0.0-0.4); Eosinophils Percent Auto 1.8 % (0-4); Hematocrit 35.7 % (42.0-52.0); Hemoglobin 11.6 g/dl (14.0-18.0); Imm Gran Abs Auto 0.14 X10*3/uL (0.00-0.03); Imm Gran Pct Auto 0.9 % (0.0-0.4); Lymphocytes Percent Auto 6.3 % (20-40); Mean Corpuscular HGB Conc 32.5 g/dl (31.0-36.0); Mean Corpuscular Hemoglobin 31.4 pg (27.0-33.0); Mean Corpuscular Volume 96.7 fL (80.0-98.0); Mean Platelet Volume 8.9 fL (9.4-12.4); Monocytes Absolute Auto 1.3 X10*3/uL (0.1-1.2); Monocytes Percent Auto 8.3 % (2-11); Neutrophils Absolute Auto 12.6 x10*3/uL (2.0-8.3); Neutrophils Percent Auto 82.2 % (45-73); Platelet Count 399 X10*3/uL (160-400); Red Blood Count 3.69 X10*6/uL (4.60-5.80); Red Cell Distribution Width 13.6 % (11.0-16.0); White Blood Count 15.3 X10*3/uL (4.8-10.8)
[2022-09-09 07:19] VITALS: BP 137/68; PULSE 88; RESP 20; TEMP 36.6; O2SAT 95
[2022-09-09] MEDS: Memantine HCl 10 MG TABLET PO ×2 (07:31→20:04)
[2022-09-09] MEDS: DULoxetine HCl 60 MG CAPSULE.DR PO (07:32)
[2022-09-09] MEDS: Carbidopa/Levodopa 25/100 TABLET 1 TAB PO ×3 (07:32→20:04)
[2022-09-09] MEDS: dilTIAZem HCL CD 240 MG CAP.ER.DEG PO (07:32)
[2022-09-09] MEDS: lisinopriL 20 MG TABLET PO (07:33)
[2022-09-09] MEDS: Pregabalin 150 MG CAPSULE 300 MG PO ×2 (07:33→20:05)
[2022-09-09] MEDS: Tamsulosin HCL 0.4 MG CAPSULE PO ×2 (07:33→20:04)
[2022-09-09] MEDS: amantadine HCL 100 MG CAPSULE PO ×3 (07:33→20:04)
[2022-09-09] MEDS: Finasteride 5 MG TABLET PO (07:33)
[2022-09-09] MEDS: Docusate Sodium 100 MG CAPSULE PO ×2 (07:33→20:04)
[2022-09-09] MEDS: Fluticasone Propionate Nasal 16 GM SPRAY 1 SPRAY NOSTRIL-B ×2 (07:37→20:09)
[2022-09-09] MEDS: polyethylene glycoL 3350 17 GM POWD.PACK PO (08:20)
--- NOTE | 2022-09-09 08:21 | P.PNGS_ITS ---
Subjective Subjective Date of Service: 09/09/22 Interval history: when can I go home? Patient had a good night feels more comfortable this morning. No bowel movement yet. Physical Exam Vital Signs: Vital Signs: Last Vital Signs Temp 97.9 F 09/09/22 07:19 Pulse 88 09/09/22 07:19 Resp 20 09/09/22 07:19 BP 137/68 09/09/22 07:19 Pulse Ox 95 09/09/22 07:19 O2 Del Method Room Air 09/09/22 07:19 O2 Flow Rate 2 09/07/22 14:42 BMI result Body Mass Index 29.8 Const: General: no acute distress Nutritional Appearance: well nourished Orientation/consciousness: patient oriented x3 GI: Other: Dressings changed. Some mucopurulent discharge from lower incision. Erythema much improved. Sutures and chris intact. Dressings replaced. Skin: Other: Warm, dry, no rash Neuro: General: patient oriented x3 Objective Data Active Medications Amantadine HCl (Amantadine Hcl 100 Mg Capsule) 100 mg PO TID [facility] Last Admin: 09/09/22 07:33 Dose: 100 mg Documented By: JUAN Baclofen (Baclofen 20 Mg Tablet) 20 mg PO BID PRN PRN Reason: pain (scale score 4-6) Buspirone HCl (Buspirone Hcl 10 Mg Tablet) 10 mg PO BID PRN PRN Reason: Anxiety Last Admin: 09/08/22 11:14 Dose: 10 mg Documented By: ASMITA Carbidopa/Levodopa (Carbidopa/Levodopa 25/100 Tablet) 1 tab PO TID [facility] Last Admin: 09/09/22 07:32 Dose: 1 tab Documented By: JUAN Diltiazem HCl (Diltiazem Hcl Cd 240 Mg Cap.Er.Deg) 240 mg PO DAILY [facility]; Protocol Last Admin: 09/09/22 07:32 Dose: 240 mg Documented By: JUAN Docusate Sodium (Docusate Sodium 100 Mg Capsule) 100 mg PO BID [facility] Last Admin: 09/09/22 07:33 Dose: 100 mg Documented By: JUAN Donepezil HCl (Donepezil Hcl 10 Mg Tablet) 10 mg PO BEDTIME [facility] Last Admin: 09/08/22 20:18 Dose: 10 mg Documented By: OCHOA Duloxetine HCl (Duloxetine Hcl 60 Mg Capsule.Dr) 60 mg PO DAILY [facility] Last Admin: 09/09/22 07:32 Dose: 60 mg Documented By: JUAN Finasteride (Finasteride 5 Mg Tablet) 5 mg PO DAILY [facility] Last Admin: 09/09/22 07:33 Dose: 5 mg Documented By: JUAN Fluticasone Propionate (Fluticasone Propionate Nasal 16 Gm [place]) 1 spray NOSTRIL-B BID [facility] Last Admin: 09/09/22 07:37 Dose: 1 spray Documented By: JUAN Hydromorphone HCl (Hydromorphone Hcl 0.5 Mg/0.5 Ml Syringe) 0.5 mg IVPUSH Q3H PRN; Protocol PRN Reason: Pain, Severe (Pain Scale 7-10) Last Admin: 09/09/22 05:19 Dose: 0.5 mg Documented By: OCHOA Acetaminophen (Ofirmev) 1,000 mg in 100 mls @ 400 mls/hr IV Q6H [facility] Last Infusion: 09/09/22 05:55 Dose: 0 mls/hr Documented By: OCHOA Levofloxacin (Levaquin) 500 mg in 100 mls @ 100 mls/hr IV Q24H [facility] Last Infusion: 09/08/22 18:18 Dose: 0 mls/hr Documented By: THEODORE Levothyroxine Sodium (Levothyroxine Sodium 50 Mcg Tablet) 50 mcg PO DAILY@0600 [facility] Last Admin: 09/09/22 05:24 Dose: 50 mcg Documented By: OCHOA Lisinopril (Lisinopril 20 Mg Tablet) 20 mg PO DAILY [facility]; Protocol Last Admin: 09/09/22 07:33 Dose: 20 mg Documented By: JUAN Memantine (Memantine Hcl 10 Mg Tablet) 10 mg PO BID [facility] Last Admin: 09/09/22 07:31 Dose: 10 mg Documented By: JUAN Metronidazole (Metronidazole 500 Mg Tablet) 500 mg PO Q8H [facility] Naloxone HCl (Naloxone Hcl Nasal 4 Mg [place]) 4 mg NOSTRILALT Q2M PRN PRN Reason: opioid overdose Ondansetron HCl (Ondansetron Hcl 4 Mg/2 Ml Vial) 4 mg IVPUSH QID PRN PRN Reason: Nausea Oxycodone HCl (Oxycodone Hcl Immed Release 5 Mg Tablet) 5 mg PO Q4H [facility] Last Admin: 09/09/22 07:32 Dose: 5 mg Documented By: JUAN Pharmacy Consult (Consult Rx Perform Med Rec) 1 each MISCELLANE ONCE PRN PRN Reason: Consult order Polyethylene Glycol (Polyethylene Glycol 3350 17 Gm Powd.Pack) 17 gm PO DAILY [facility] Last Admin: 09/09/22 08:20 Dose: 17 gm Documented By: JUAN Pregabalin (Pregabalin 150 Mg Capsule) 300 mg PO BID [facility] Last Admin: 09/09/22 07:33 Dose: 300 mg Documented By: JUAN Ropinirole HCl (Ropinirole Hcl 1 Mg Tablet) 6 mg PO DAILY@1200 [facility] Last Admin: 09/08/22 11:14 Dose: 6 mg Documented By: ASMITA Ropinirole HCl (Ropinirole Hcl 2 Mg Tablet) 12 mg PO BEDTIME [facility] Last Admin: 09/08/22 20:16 Dose: 12 mg Documented By: OCHOA Tamsulosin HCl (Tamsulosin Hcl 0.4 Mg Capsule) 0.4 mg PO BID [facility] Last Admin: 09/09/22 07:33 Dose: 0.4 mg Documented By: JUAN Tizanidine HCl (Tizanidine Hcl 4 Mg Tablet) 4 mg PO TID PRN PRN Reason: muscle spasticity Last Admin: 09/07/22 21:50 Dose: 4 mg Documented By: CASTINGRIS Trazodone HCl (Trazodone Hcl 100 Mg Tablet) 300 mg PO BEDTIME PRN PRN Reason: insomnia Last Admin: 09/08/22 22:42 Dose: 300 mg Documented By: OCHOA Labs 09/09/22 05:48 09/07/22 05:57 Labs: Laboratory Results - last 24 hr 09/09/22 05:48 MCV 96.7 MCH 31.4 MCHC 32.5 RDW 13.6 Plt Count 399 D MPV 8.9 L Immature Gran % (Auto) 0.9 H Neut % (Auto) 82.2 H Lymph % (Auto) 6.3 L [place] % (Auto) 8.3 Eos % (Auto) 1.8 Baso % (Auto) 0.5 Lymph # (Auto) 1.0 L [place] # (Auto) 1.3 H Eos # (Auto) 0.3 Baso # (Auto) 0.1 Abs Immat Gran (auto) 0.14 H Absolute Neuts (auto) 12.6 H Absolute Nucleated RBC 0.000 Nucleated RBC % (auto) 0.0 Procedures Date of Service Date of Service: 09/09/22 Progress Note: A&P Assessment and plan (1) Abdominal wound dehiscence: Status: Acute Plan 71 year old male 1 week s/p colostomy reversal who presented with increased abd wound drainage found to have wound dehiscence. He is now POD #3 s/p closure of fascial dehiscence, retention suture placement. Continues to do well post op. Abd exam benign with small amount of mucopurulent discharge from the lower incision., retentions in place, no evidence of dehiscence recurrence. pain now well controlled. Will add Flagyl to antibiotic . CBC in a.m. tomorrow. OOB and IS use. Time Spent With Patient Time: Total time managing care of this patient today ____ minutes. Quality Stroke Does the patient have a stroke diagnosis?: No VTE Prior VTE?: No VTE Risk Level:: Surgical - high VTE Device Contraindication: N/A - Device Ordered VTE Drug Contraindication: N/A - Med Ordered
[2022-09-09] MEDS: metroNIDAZOLE 500 MG TABLET PO ×2 (08:53→14:53)
[2022-09-09] MEDS: rOPINIRole HCL 1 MG TABLET 6 MG PO (11:08)
[2022-09-09] MEDS: busPIRone HCl 10 MG TABLET PO (12:23)
[2022-09-09 14:52] VITALS: BP 138/65; PULSE 88; RESP 20; TEMP 37.1; O2SAT 94
[2022-09-09] MEDS: levoFLOXacin/D5W 500 MG/100 ML PIGGYBACK 100 MG IV (16:00)
[2022-09-09] MEDS: ondansetron HCL 4 MG/2 ML VIAL IVPUSH (19:13)
[2022-09-09 19:21] VITALS: BP 132/70; PULSE 92; RESP 20; TEMP 37.1; O2SAT 92
[2022-09-09] MEDS: Donepezil HCl 10 MG TABLET PO (20:04)
[2022-09-09] MEDS: rOPINIRole HCL 2 MG TABLET 12 MG PO (20:05)
[2022-09-09] MEDS: traZODone HCL 100 MG TABLET 300 MG PO (22:08)
[2022-09-10] MEDS: oxyCODONE HCl Immed Release 5 MG TABLET PO ×6 (00:05→19:53)
[2022-09-10] MEDS: metroNIDAZOLE 500 MG TABLET PO ×3 (00:06→15:26)
[2022-09-10 03:25] VITALS: BP 134/60; PULSE 83; RESP 20; TEMP 36.9; O2SAT 92
[2022-09-10] MEDS: Levothyroxine Sodium 50 MCG TABLET PO (05:38)
[2022-09-10 06:20] LABS: MANUAL DIFF FLAG NO
[2022-09-10 06:32] LABS: Basophils Absolute Auto 0.1 X10*3/uL (0.0-0.2); Basophils Percent Auto 0.5 % (0-2); Eosinophils Absolute Auto 0.4 X10*3/uL (0.0-0.4); Eosinophils Percent Auto 2.8 % (0-4); Hematocrit 33.4 % (42.0-52.0); Hemoglobin 10.5 g/dl (14.0-18.0); Imm Gran Abs Auto 0.22 X10*3/uL (0.00-0.03); Imm Gran Pct Auto 1.5 % (0.0-0.4); Lymphocytes Absolute Auto 1.2 X10*3/uL (1.2-4.9); Lymphocytes Percent Auto 8.2 % (20-40); Mean Corpuscular HGB Conc 31.4 g/dl (31.0-36.0); Mean Corpuscular Hemoglobin 30.4 pg (27.0-33.0); Mean Corpuscular Volume 96.8 fL (80.0-98.0); Mean Platelet Volume 8.7 fL (9.4-12.4); Monocytes Percent Auto 6.8 % (2-11); Neutrophils Absolute Auto 11.9 x10*3/uL (2.0-8.3); Neutrophils Percent Auto 80.2 % (45-73); Platelet Count 433 X10*3/uL (160-400); Red Blood Count 3.45 X10*6/uL (4.60-5.80); Red Cell Distribution Width 13.7 % (11.0-16.0); White Blood Count 14.8 X10*3/uL (4.8-10.8)
[2022-09-10 07:12] VITALS: BP 135/69; PULSE 88; RESP 18; TEMP 37.2; O2SAT 97
[2022-09-10] MEDS: Docusate Sodium 100 MG CAPSULE PO ×2 (07:31→20:41)
[2022-09-10] MEDS: Finasteride 5 MG TABLET PO (07:31)
[2022-09-10] MEDS: dilTIAZem HCL CD 240 MG CAP.ER.DEG PO (07:31)
[2022-09-10] MEDS: polyethylene glycoL 3350 17 GM POWD.PACK PO (07:31)
[2022-09-10] MEDS: Memantine HCl 10 MG TABLET PO ×2 (07:32→20:41)
[2022-09-10] MEDS: Carbidopa/Levodopa 25/100 TABLET 1 TAB PO ×3 (07:32→20:41)
[2022-09-10] MEDS: lisinopriL 20 MG TABLET PO (07:32)
[2022-09-10] MEDS: DULoxetine HCl 60 MG CAPSULE.DR PO (07:32)
[2022-09-10] MEDS: Tamsulosin HCL 0.4 MG CAPSULE PO ×2 (07:32→20:40)
[2022-09-10] MEDS: Pregabalin 150 MG CAPSULE 300 MG PO ×2 (07:32→20:40)
[2022-09-10] MEDS: amantadine HCL 100 MG CAPSULE PO ×3 (07:32→20:40)
[2022-09-10 07:36] VITALS: TEMP 37
[2022-09-10] MEDS: Fluticasone Propionate Nasal 16 GM SPRAY 1 SPRAY NOSTRIL-B ×2 (07:36→20:47)
--- NOTE | 2022-09-10 08:40 | P.PNGS_ITS ---
Subjective Subjective Date of Service: 09/10/22 Interval history: if I have a bowel movement, go home today? Physical Exam Vital Signs: Vital Signs: Last Vital Signs Temp 98.6 F 09/10/22 07:36 Pulse 88 09/10/22 07:12 Resp 18 09/10/22 07:12 BP 135/69 09/10/22 07:12 Pulse Ox 97 09/10/22 07:12 O2 Del Method Room Air 09/10/22 07:12 O2 Flow Rate 2 09/07/22 14:42 BMI result Body Mass Index 29.8 Const: General: comfortable and no acute distress Nutritional Appearance: well nourished Orientation/consciousness: patient oriented x3 Resp: Effort & Inspection: normal respiratory effort GI: Other: Dressings changed. Small amount of mucopurulent discharge noted at lower pole of incision. Several sarabjit removed and the wound packed with iodoform gauze. No large collection identified. Sterile dressings applied. Sarabjit and retention sutures remain intact. Skin: Other: Warm and dry Neuro: General: patient oriented x3 Objective Data Active Medications Amantadine HCl (Amantadine Hcl 100 Mg Capsule) 100 mg PO TID [facility] Last Admin: 09/10/22 07:32 Dose: 100 mg Documented By: DEYSI Baclofen (Baclofen 20 Mg Tablet) 20 mg PO BID PRN PRN Reason: pain (scale score 4-6) Buspirone HCl (Buspirone Hcl 10 Mg Tablet) 10 mg PO BID PRN PRN Reason: Anxiety Last Admin: 09/09/22 12:23 Dose: 10 mg Documented By: DEYSI Carbidopa/Levodopa (Carbidopa/Levodopa 25/100 Tablet) 1 tab PO TID [facility] Last Admin: 09/10/22 07:32 Dose: 1 tab Documented By: DEYSI Diltiazem HCl (Diltiazem Hcl Cd 240 Mg Cap.Er.Deg) 240 mg PO DAILY [facility]; Protocol Last Admin: 09/10/22 07:31 Dose: 240 mg Documented By: DEYSI Docusate Sodium (Docusate Sodium 100 Mg Capsule) 100 mg PO BID [facility] Last Admin: 09/10/22 07:31 Dose: 100 mg Documented By: DEYSI Donepezil HCl (Donepezil Hcl 10 Mg Tablet) 10 mg PO BEDTIME [facility] Last Admin: 09/09/22 20:04 Dose: 10 mg Documented By: ODJOCELINE Duloxetine HCl (Duloxetine Hcl 60 Mg Capsule.Dr) 60 mg PO DAILY [facility] Last Admin: 09/10/22 07:32 Dose: 60 mg Documented By: DEYSI Finasteride (Finasteride 5 Mg Tablet) 5 mg PO DAILY [facility] Last Admin: 09/10/22 07:31 Dose: 5 mg Documented By: DEYSI Fluticasone Propionate (Fluticasone Propionate Nasal 16 Gm [place]) 1 spray NOSTRIL-B BID [facility] Last Admin: 09/10/22 07:36 Dose: 1 spray Documented By: DEYSI Hydromorphone HCl (Hydromorphone Hcl 0.5 Mg/0.5 Ml Syringe) 0.5 mg IVPUSH Q3H P RN; Protocol PRN Reason: Pain, Severe (Pain Scale 7-10) Last Admin: 09/09/22 05:19 Dose: 0.5 mg Documented By: OCHOA Levofloxacin (Levaquin) 500 mg in 100 mls @ 100 mls/hr IV Q24H [facility] Last Infusion: 09/09/22 17:12 Dose: 0 mls/hr Documented By: JUAN Levothyroxine Sodium (Levothyroxine Sodium 50 Mcg Tablet) 50 mcg PO DAILY@0600 [facility] Last Admin: 09/10/22 05:38 Dose: 50 mcg Documented By: JOSE Lisinopril (Lisinopril 20 Mg Tablet) 20 mg PO DAILY [facility]; Protocol Last Admin: 09/10/22 07:32 Dose: 20 mg Documented By: DEYSI Memantine (Memantine Hcl 10 Mg Tablet) 10 mg PO BID [facility] Last Admin: 09/10/22 07:32 Dose: 10 mg Documented By: DEYSI Metronidazole (Metronidazole 500 Mg Tablet) 500 mg PO Q8H [facility] Last Admin: 09/10/22 07:32 Dose: 500 mg Documented By: DEYSI Naloxone HCl (Naloxone Hcl Nasal 4 Mg [place]) 4 mg NOSTRILALT Q2M PRN PRN Reason: opioid overdose Ondansetron HCl (Ondansetron Hcl 4 Mg/2 Ml Vial) 4 mg IVPUSH QID PRN PRN Reason: Nausea Last Admin: 09/09/22 19:13 Dose: 4 mg Documented By: JOSE Oxycodone HCl (Oxycodone Hcl Immed Release 5 Mg Tablet) 5 mg PO Q4H [facility] Last Admin: 09/10/22 07:32 Dose: 5 mg Documented By: DEYSI Pharmacy Consult (Consult Rx Perform Med Rec) 1 each MISCELLANE ONCE PRN PRN Reason: Consult order Polyethylene Glycol (Polyethylene Glycol 3350 17 Gm Powd.Pack) 17 gm PO DAILY [facility] Last Admin: 09/10/22 07:31 Dose: 17 gm Documented By: DEYSI Pregabalin (Pregabalin 150 Mg Capsule) 300 mg PO BID [facility] Last Admin: 09/10/22 07:32 Dose: 300 mg Documented By: DEYSI Ropinirole HCl (Ropinirole Hcl 1 Mg Tablet) 6 mg PO DAILY@1200 [facility] Last Admin: 09/09/22 11:08 Dose: 6 mg Documented By: JUAN Ropinirole HCl (Ropinirole Hcl 2 Mg Tablet) 12 mg PO BEDTIME [facility] Last Admin: 09/09/22 20:05 Dose: 12 mg Documented By: JOSE Tamsulosin HCl (Tamsulosin Hcl 0.4 Mg Capsule) 0.4 mg PO BID [facility] Last Admin: 09/10/22 07:32 Dose: 0.4 mg Documented By: EDYSI Tizanidine HCl (Tizanidine Hcl 4 Mg Tablet) 4 mg PO TID PRN PRN Reason: muscle spasticity Last Admin: 09/07/22 21:50 Dose: 4 mg Documented By: CASTINGRIS Trazodone HCl (Trazodone Hcl 100 Mg Tablet) 300 mg PO BEDTIME PRN PRN Reason: insomnia Last Admin: 09/09/22 22:08 Dose: 300 mg Documented By: JOSE Labs 09/10/22 05:51 09/07/22 05:57 Labs: Laboratory Results - last 24 hr 09/10/22 05:51 MCV 96.8 MCH 30.4 MCHC 31.4 RDW 13.7 Plt Count 433 H MPV 8.7 L Immature Gran % (Auto) 1.5 H Neut % (Auto) 80.2 H Lymph % (Auto) 8.2 L [place] % (Auto) 6.8 Eos % (Auto) 2.8 Baso % (Auto) 0.5 Lymph # (Auto) 1.2 [place] # (Auto) 1.0 Eos # (Auto) 0.4 Baso # (Auto) 0.1 Abs Immat Gran (auto) 0.22 H Absolute Neuts (auto) 11.9 H Absolute Nucleated RBC 0.000 Nucleated RBC % (auto) 0.0 Procedures Date of Service Date of Service: 09/10/22 Progress Note: A&P Assessment and plan (1) Abdominal wound dehiscence: Status: Acute (2) History of colostomy reversal: Status: Acute Plan pod 4 following closure of fascial dehiscence. Patient's WBC mildly elevated possibly due to a superficial infection in skin. [place] removed this morning and wound packed with iodoform gauze. Minimal purulent discharge noted. Will continue antibiotics and monitor wound. Continue stool softeners. Awaiting return of bowel function. Possible discharge after bowel movement. Patient encouraged to ambulate this morning with walker. He reports walking yesterday in the hallways. Time Spent With Patient Time: Total time managing care of this patient today ____ minutes. Quality Stroke Does the patient have a stroke diagnosis?: No VTE Prior VTE?: No VTE Risk Level:: Surgical - high VTE Device Contraindication: N/A - Device Ordered VTE Drug Contraindication: N/A - Med Ordered
--- NOTE | 2022-09-10 08:43 | HO.PM.IMPN ---
Subjective Subjective Date of Service: 09/10/22 Interval History: Doing well, no new issues, constipated and hoping to go home today Physical Exam Vital Signs: Vital Signs: Last Vital Signs Temp 98.6 F 09/10/22 07:36 Pulse 88 09/10/22 07:12 Resp 18 09/10/22 07:12 BP 135/69 09/10/22 07:12 Pulse Ox 97 09/10/22 07:12 O2 Del Method Room Air 09/10/22 07:12 O2 Flow Rate 2 09/07/22 14:42 BMI result Body Mass Index 29.8 Const: Other: Constitutional: Alert, in no distress, Respiratory: Clear to auscultation. No wheezing, rales or rhonchi. Cardiovascular: S1 S2 regular. No murmurs, rubs or gallops. Gastrointestinal: Abdomen soft, non-tender, wound is covered Skin: No rashes or lesions.? Musculoskeletal: No cyanosis or clubbing. Psychiatric: Normal mood and affect? Objective Data Active Medications Amantadine HCl (Amantadine Hcl 100 Mg Capsule) 100 mg PO TID [facility] Last Admin: 09/10/22 07:32 Dose: 100 mg Documented By: DEYSI Baclofen (Baclofen 20 Mg Tablet) 20 mg PO BID PRN PRN Reason: pain (scale score 4-6) Buspirone HCl (Buspirone Hcl 10 Mg Tablet) 10 mg PO BID PRN PRN Reason: Anxiety Last Admin: 09/09/22 12:23 Dose: 10 mg Documented By: DEYSI Carbidopa/Levodopa (Carbidopa/Levodopa 25/100 Tablet) 1 tab PO TID [facility] Last Admin: 09/10/22 07:32 Dose: 1 tab Documented By: DEYSI Diltiazem HCl (Diltiazem Hcl Cd 240 Mg Cap.Er.Deg) 240 mg PO DAILY [facility]; Protocol Last Admin: 09/10/22 07:31 Dose: 240 mg Documented By: DEYSI Docusate Sodium (Docusate Sodium 100 Mg Capsule) 100 mg PO BID [facility] Last Admin: 09/10/22 07:31 Dose: 100 mg Documented By: DEYSI Donepezil HCl (Donepezil Hcl 10 Mg Tablet) 10 mg PO BEDTIME [facility] Last Admin: 09/09/22 20:04 Dose: 10 mg Documented By: JOSE Duloxetine HCl (Duloxetine Hcl 60 Mg Capsule.) 60 mg PO DAILY [facility] Last Admin: 09/10/22 07:32 Dose: 60 mg Documented By: DEYSI Finasteride (Finasteride 5 Mg Tablet) 5 mg PO DAILY [facility] Last Admin: 09/10/22 07:31 Dose: 5 mg Documented By: DEYSI Fluticasone Propionate (Fluticasone Propionate Nasal 16 Gm [place]) 1 spray NOSTRIL-B BID [facility] Last Admin: 09/10/22 07:36 Dose: 1 spray Documented By: DEYSI Hydromorphone HCl (Hydromorphone Hcl 0.5 Mg/0.5 Ml Syringe) 0.5 mg IVPUSH Q3H PRN; Protocol PRN Reason: Pain, Severe (Pain Scale 7-10) Last Admin: 09/09/22 05:19 Dose: 0.5 mg Documented By: OCHOA Levofloxacin (Levaquin) 500 mg in 100 mls @ 100 mls/hr IV Q24H [facility] Last Infusion: 09/09/22 17:12 Dose: 0 mls/hr Documented By: JUAN Levothyroxine Sodium (Levothyroxine Sodium 50 Mcg Tablet) 50 mcg PO DAILY@0600 [facility] Last Admin: 09/10/22 05:38 Dose: 50 mcg Documented By: JOSE Lisinopril (Lisinopril 20 Mg Tablet) 20 mg PO DAILY [facility]; Protocol Last Admin: 09/10/22 07:32 Dose: 20 mg Documented By: DEYSI Memantine (Memantine Hcl 10 Mg Tablet) 10 mg PO BID [facility] Last Admin: 09/10/22 07:32 Dose: 10 mg Documented By: DEYSI Metronidazole (Metronidazole 500 Mg Tablet) 500 mg PO Q8H [facility] Last Admin: 09/10/22 07:32 Dose: 500 mg Documented By: DEYSI Naloxone HCl (Naloxone Hcl Nasal 4 Mg [place]) 4 mg NOSTRILALT Q2M PRN PRN Reason: opioid overdose Ondansetron HCl (Ondansetron Hcl 4 Mg/2 Ml Vial) 4 mg IVPUSH QID PRN PRN Reason: Nausea Last Admin: 09/09/22 19:13 Dose: 4 mg Documented By: JOSE Oxycodone HCl (Oxycodone Hcl Immed Release 5 Mg Tablet) 5 mg PO Q4H [facility] Last Admin: 09/10/22 07:32 Dose: 5 mg Documented By: DEYSI Pharmacy Consult (Consult Rx Perform Med Rec) 1 each MISCELLANE ONCE PRN PRN Reason: Consult order Polyethylene Glycol (Polyethylene Glycol 3350 17 Gm Powd.Pack) 17 gm PO DAILY [facility] Last Admin: 09/10/22 07:31 Dose: 17 gm Documented By: DEYSI Pregabalin (Pregabalin 150 Mg Capsule) 300 mg PO BID [facility] Last Admin: 09/10/22 07:32 Dose: 300 mg Documented By: DEYSI Ropinirole HCl (Ropinirole Hcl 1 Mg Tablet) 6 mg PO DAILY@1200 [facility] Last Admin: 09/09/22 11:08 Dose: 6 mg Documented By: JUAN Ropinirole HCl (Ropinirole Hcl 2 Mg Tablet) 12 mg PO BEDTIME [facility] Last Admin: 09/09/22 20:05 Dose: 12 mg Documented By: JOSE Tamsulosin HCl (Tamsulosin Hcl 0.4 Mg Capsule) 0.4 mg PO BID [facility] Last Admin: 09/10/22 07:32 Dose: 0.4 mg Documented By: DEYSI Tizanidine HCl (Tizanidine Hcl 4 Mg Tablet) 4 mg PO TID PRN PRN Reason: muscle spasticity Last Admin: 09/07/22 21:50 Dose: 4 mg Documented By: CASTINGRIS Trazodone HCl (Trazodone Hcl 100 Mg Tablet) 300 mg PO BEDTIME PRN PRN Reason: insomnia Last Admin: 09/09/22 22:08 Dose: 300 mg Documented By: JOSE Labs 09/10/22 05:51 09/07/22 05:57 Labs: Laboratory Results - last 24 hr 09/10/22 05:51 MCV 96.8 MCH 30.4 MCHC 31.4 RDW 13.7 Plt Count 433 H MPV 8.7 L Immature Gran % (Auto) 1.5 H Neut % (Auto) 80.2 H Lymph % (Auto) 8.2 L [place] % (Auto) 6.8 Eos % (Auto) 2.8 Baso % (Auto) 0.5 Lymph # (Auto) 1.2 [place] # (Auto) 1.0 Eos # (Auto) 0.4 Baso # (Auto) 0.1 Abs Immat Gran (auto) 0.22 H Absolute Neuts (auto) 11.9 H Absolute Nucleated RBC 0.000 Nucleated RBC % (auto) 0.0 Assessment and Plan (1) Abdominal wound dehiscence: Status: Acute Plan 71 year old male with history of Parkinson's disease, chronic back pain, HTN, BPH, hypothyroidism admitted to surgery? s/p colostomy reversal and? presented with increased abd wound drainage found to have wound dehiscence s/p closure of fascial dehiscence, retention suture placement on 09/06 Wound management by surgery hypothyroidism continue Synthroid. chronic pain pain/RLS on multiple medications,baclofen, duloxetine, Requip and pregabalin,? can resume all home medications Parksinon's disease/dementia continue carbidopan, amantadine? and Aricept BPH proscar, and flomax . HTN continue? diltiazem and lisinopril FRANCES not complaint with CPAP at baseline. GERD PPI Discussed with pt and signicant other medically stable for dischrge Time Spent With Patient Time: Total time managing care of this patient today ____ minutes. Time Spent With Patient Time: Total time managing care of this patient today ____ minutes. Quality Stroke Does the patient have a stroke diagnosis?: No VTE Prior VTE?: No VTE Risk Level:: Surgical - high VTE Device Contraindication: N/A - Device Ordered VTE Drug Contraindication: N/A - Med Ordered
[2022-09-10] MEDS: rOPINIRole HCL 1 MG TABLET 6 MG PO (11:23)
[2022-09-10 15:53] VITALS: BP 112/61; PULSE 86; RESP 16; TEMP 37.1; O2SAT 95
[2022-09-10 16:00] VITALS: BP 112/61; PULSE 86; RESP 16; TEMP 37.1; O2SAT 95
[2022-09-10] MEDS: levoFLOXacin/D5W 500 MG/100 ML PIGGYBACK 100 MG IV (16:41)
[2022-09-10] MEDS: HYDROmorphone HCl 0.5 MG/0.5 ML SYRINGE IVPUSH (16:41)
[2022-09-10 19:47] VITALS: BP 131/62; PULSE 85; RESP 16; TEMP 36.8; O2SAT 94
[2022-09-10] MEDS: rOPINIRole HCL 2 MG TABLET 12 MG PO (20:41)
[2022-09-10] MEDS: Donepezil HCl 10 MG TABLET PO (20:41)
[2022-09-10] MEDS: traZODone HCL 100 MG TABLET 300 MG PO (21:57)
[2022-09-11] MEDS: metroNIDAZOLE 500 MG TABLET PO ×3 (00:24→16:41)
[2022-09-11] MEDS: oxyCODONE HCl Immed Release 5 MG TABLET PO ×6 (00:24→21:07)
[2022-09-11 03:36] VITALS: BP 129/66; PULSE 74; RESP 18; TEMP 36.9; O2SAT 95
[2022-09-11] MEDS: Levothyroxine Sodium 50 MCG TABLET PO (05:30)
[2022-09-11 07:42] VITALS: BP 135/83; PULSE 85; RESP 18; TEMP 37.3; O2SAT 97
[2022-09-11] MEDS: Finasteride 5 MG TABLET PO (07:47)
[2022-09-11] MEDS: dilTIAZem HCL CD 240 MG CAP.ER.DEG PO (07:48)
[2022-09-11] MEDS: Docusate Sodium 100 MG CAPSULE PO ×2 (07:48→21:11)
[2022-09-11] MEDS: Memantine HCl 10 MG TABLET PO ×2 (07:48→21:09)
[2022-09-11] MEDS: DULoxetine HCl 60 MG CAPSULE.DR PO (07:48)
[2022-09-11] MEDS: Pregabalin 150 MG CAPSULE 300 MG PO ×2 (07:48→21:12)
[2022-09-11] MEDS: Tamsulosin HCL 0.4 MG CAPSULE PO ×2 (07:48→21:13)
[2022-09-11] MEDS: Carbidopa/Levodopa 25/100 TABLET 1 TAB PO ×3 (07:48→21:12)
[2022-09-11] MEDS: amantadine HCL 100 MG CAPSULE PO ×3 (07:48→21:09)
[2022-09-11] MEDS: polyethylene glycoL 3350 17 GM POWD.PACK PO (07:48)
[2022-09-11] MEDS: lisinopriL 20 MG TABLET PO (07:48)
[2022-09-11] MEDS: Fluticasone Propionate Nasal 16 GM SPRAY 1 SPRAY NOSTRIL-B ×2 (07:56→21:14)
--- NOTE | 2022-09-11 07:57 | P.PNIM_ITS ---
Subjective Subjective Date of Service: 09/11/22 Interval History: feels constipated and no BM in days Physical Exam Vital Signs: Vital Signs: Last Vital Signs Temp 99.1 F 09/11/22 07:42 Pulse 85 09/11/22 07:42 Resp 18 09/11/22 07:42 BP 135/83 09/11/22 07:42 Pulse Ox 97 09/11/22 07:42 O2 Del Method Room Air 09/11/22 07:42 O2 Flow Rate 2 09/07/22 14:42 BMI result Body Mass Index 29.8 Const: Other: Constitutional: Alert, in no distress, Respiratory: Clear to auscultation. No wheezing, rales or rhonchi. Cardiovascular: S1 S2 regular. No murmurs, rubs or gallops. Gastrointestinal: Abdomen soft, non-tender, no distention, wound is covered Skin: No rashes or lesions.? Musculoskeletal: No cyanosis or clubbing. Psychiatric: Normal mood and affect? Objective Data Active Medications Amantadine HCl (Amantadine Hcl 100 Mg Capsule) 100 mg PO TID [facility] Last Admin: 09/11/22 07:48 Dose: 100 mg Documented By: ASMITA Baclofen (Baclofen 20 Mg Tablet) 20 mg PO BID PRN PRN Reason: pain (scale score 4-6) Buspirone HCl (Buspirone Hcl 10 Mg Tablet) 10 mg PO BID PRN PRN Reason: Anxiety Last Admin: 09/09/22 12:23 Dose: 10 mg Documented By: DEYSI Carbidopa/Levodopa (Carbidopa/Levodopa 25/100 Tablet) 1 tab PO TID [facility] Last Admin: 09/11/22 07:48 Dose: 1 tab Documented By: ASMITA Diltiazem HCl (Diltiazem Hcl Cd 240 Mg Cap.Er.Deg) 240 mg PO DAILY [facility]; Protocol Last Admin: 09/11/22 07:48 Dose: 240 mg Documented By: ASMITA Docusate Sodium (Docusate Sodium 100 Mg Capsule) 100 mg PO BID [facility] Last Admin: 09/11/22 07:48 Dose: 100 mg Documented By: ASMITA Donepezil HCl (Donepezil Hcl 10 Mg Tablet) 10 mg PO BEDTIME [facility] Last Admin: 09/10/22 20:41 Dose: 10 mg Documented By: JAMES Duloxetine HCl (Duloxetine Hcl 60 Mg Capsule.Dr) 60 mg PO DAILY [facility] Last Admin: 09/11/22 07:48 Dose: 60 mg Documented By: ASMITA Finasteride (Finasteride 5 Mg Tablet) 5 mg PO DAILY [facility] Last Admin: 09/11/22 07:47 Dose: 5 mg Documented By: ASMITA Fluticasone Propionate (Fluticasone Propionate Nasal 16 Gm [place]) 1 spray NOSTRIL-B BID [facility] Last Admin: 09/11/22 07:56 Dose: 1 spray Documented By: ASMITA Hydromorphone HCl (Hydromorphone Hcl 0.5 Mg/0.5 Ml Syringe) 0.5 mg IVPUSH Q3H PRN; Protocol PRN Reason: Pain, Severe (Pain Scale 7-10) Last Admin: 09/10/22 16:41 Dose: 0.5 mg Documented By: DEYSI Levofloxacin (Levaquin) 500 mg in 100 mls @ 100 mls/hr IV Q24H [facility] Last Infusion: 09/10/22 19:52 Dose: 0 mls/hr Documented By: JAMES Levothyroxine Sodium (Levothyroxine Sodium 50 Mcg Tablet) 50 mcg PO DAILY@0600 [facility] Last Admin: 09/11/22 05:30 Dose: 50 mcg Documented By: JAMES Lisinopril (Lisinopril 20 Mg Tablet) 20 mg PO DAILY [facility]; Protocol Last Admin: 09/11/22 07:48 Dose: 20 mg Documented By: ASMITA Memantine (Memantine Hcl 10 Mg Tablet) 10 mg PO BID [facility] Last Admin: 09/11/22 07:48 Dose: 10 mg Documented By: ASMITA Metronidazole (Metronidazole 500 Mg Tablet) 500 mg PO Q8H [facility] Last Admin: 09/11/22 07:48 Dose: 500 mg Documented By: ASMITA Naloxone HCl (Naloxone Hcl Nasal 4 Mg [place]) 4 mg NOSTRILALT Q2M PRN PRN Reason: opioid overdose Ondansetron HCl (Ondansetron Hcl 4 Mg/2 Ml Vial) 4 mg IVPUSH QID PRN PRN Reason: Nausea Last Admin: 09/09/22 19:13 Dose: 4 mg Documented By: JOSE Oxycodone HCl (Oxycodone Hcl Immed Release 5 Mg Tablet) 5 mg PO Q4H [facility] Last Admin: 09/11/22 07:48 Dose: 5 mg Documented By: ASMITA Pharmacy Consult (Consult Rx Perform Med Rec) 1 each MISCELLANE ONCE PRN PRN Reason: Consult order Polyethylene Glycol (Polyethylene Glycol 3350 17 Gm Powd.Pack) 17 gm PO DAILY [facility] Last Admin: 09/11/22 07:48 Dose: 17 gm Documented By: ASMITA Pregabalin (Pregabalin 150 Mg Capsule) 300 mg PO BID [facility] Last Admin: 09/11/22 07:48 Dose: 300 mg Documented By: ASMITA Ropinirole HCl (Ropinirole Hcl 1 Mg Tablet) 6 mg PO DAILY@1200 [facility] Last Admin: 09/10/22 11:23 Dose: 6 mg Documented By: DEYSI Ropinirole HCl (Ropinirole Hcl 2 Mg Tablet) 12 mg PO BEDTIME [facility] Last Admin: 09/10/22 20:41 Dose: 12 mg Documented By: JAMES Tamsulosin HCl (Tamsulosin Hcl 0.4 Mg Capsule) 0.4 mg PO BID [facility] Last Admin: 09/11/22 07:48 Dose: 0.4 mg Documented By: ASMITA Tizanidine HCl (Tizanidine Hcl 4 Mg Tablet) 4 mg PO TID PRN PRN Reason: muscle spasticity Last Admin: 09/07/22 21:50 Dose: 4 mg Documented By: CASTILLion Trazodone HCl (Trazodone Hcl 100 Mg Tablet) 300 mg PO BEDTIME PRN PRN Reason: insomnia Last Admin: 09/10/22 21:57 Dose: 300 mg Documented By: JAMES Labs 09/10/22 05:51 09/07/22 05:57 Assessment and Plan (1) Abdominal wound dehiscence: Status: Acute Plan 71 year old male with history of Parkinson's disease, chronic back pain, HTN, BPH, hypothyroidism admitted to surgery? s/p colostomy reversal and? presented with increased abd wound drainage found to have wound dehiscence s/p closure of fascial dehiscence, retention suture placement on 09/06 Wound management by surgery hypothyroidism continue Synthroid. chronic pain pain/RLS on multiple medications,baclofen, duloxetine, Requip and pregabalin,? can resume all home medications Parksinon's disease/dementia continue carbidopan, amantadine? and Aricept BPH proscar, and flomax . HTN continue? diltiazem and lisinopril FRANCES not complaint with CPAP at baseline. GERD PPI constipation: recommend enema, and other bowel regimen Discussed with pt and signicant other medically stable for dischrge Time Spent With Patient Time: Total time managing care of this patient today ____ minutes. Time Spent With Patient Time: Total time managing care of this patient today ____ minutes. Quality Stroke Does the patient have a stroke diagnosis?: No VTE Prior VTE?: No VTE Risk Level:: Surgical - high VTE Device Contraindication: N/A - Device Ordered VTE Drug Contraindication: N/A - Med Ordered
--- NOTE | 2022-09-11 09:01 | PM.PNGS ---
Subjective Subjective Date of Service: 09/11/22 Interval history: Feels well and wants to go home passing flatus, no BMs says he has ambulated a little bit still a sore on the lower part of the incision Physical Exam Vital Signs: Vital Signs: Last Vital Signs Temp 99.1 F 09/11/22 07:42 Pulse 85 09/11/22 07:42 Resp 18 09/11/22 07:42 BP 135/83 09/11/22 07:42 Pulse Ox 97 09/11/22 07:42 O2 Del Method Room Air 09/11/22 07:42 O2 Flow Rate 2 09/07/22 14:42 BMI result Body Mass Index 29.8 Const: Other: on recliner General: comfortable and no acute distress Resp: Effort & Inspection: normal respiratory effort Cardio: Rate: regular rate GI: Other: midline incision, with chris and retention sutures, some drainage from the lower part of the incision, purulent, packing in place Palpation (GI): Soft to palpation, not firm and no guarding Objective Data Active Medications Amantadine HCl (Amantadine Hcl 100 Mg Capsule) 100 mg PO TID [facility] Last Admin: 09/11/22 07:48 Dose: 100 mg Documented By: ASMITA Baclofen (Baclofen 20 Mg Tablet) 20 mg PO BID PRN PRN Reason: pain (scale score 4-6) Buspirone HCl (Buspirone Hcl 10 Mg Tablet) 10 mg PO BID PRN PRN Reason: Anxiety Last Admin: 09/09/22 12:23 Dose: 10 mg Documented By: DEYSI Carbidopa/Levodopa (Carbidopa/Levodopa 25/100 Tablet) 1 tab PO TID [facility] Last Admin: 09/11/22 07:48 Dose: 1 tab Documented By: ASMITA Diltiazem HCl (Diltiazem Hcl Cd 240 Mg Cap.Er.Deg) 240 mg PO DAILY [facility]; Protocol Last Admin: 09/11/22 07:48 Dose: 240 mg Documented By: ASMITA Docusate Sodium (Docusate Sodium 100 Mg Capsule) 100 mg PO BID [facility] Last Admin: 09/11/22 07:48 Dose: 100 mg Documented By: ASMITA Donepezil HCl (Donepezil Hcl 10 Mg Tablet) 10 mg PO BEDTIME [facility] Last Admin: 09/10/22 20:41 Dose: 10 mg Documented By: JAMES Duloxetine HCl (Duloxetine Hcl 60 Mg Capsule.Dr) 60 mg PO DAILY [facility] Last Admin: 09/11/22 07:48 Dose: 60 mg Documented By: ASMITA Finasteride (Finasteride 5 Mg Tablet) 5 mg PO DAILY [facility] Last Admin: 09/11/22 07:47 Dose: 5 mg Documented By: ASMITA Fluticasone Propionate (Fluticasone Propionate Nasal 16 Gm [place]) 1 spray NOSTRIL-B BID [facility] Last Admin: 09/11/22 07:56 Dose: 1 spray Documented By: ASMITA Hydromorphone HCl (Hydromorphone Hcl 0.5 Mg/0.5 Ml Syringe) 0.5 mg IVPUSH Q3H PRN; Protocol PRN Reason: Pain, Severe (Pain Scale 7-10) Last Admin: 09/10/22 16:41 Dose: 0.5 mg Documented By: DEYSI Levofloxacin (Levaquin) 500 mg in 100 mls @ 100 mls/hr IV Q24H [facility] Last Infusion: 09/10/22 19:52 Dose: 0 mls/hr Documented By: JAMES Levothyroxine Sodium (Levothyroxine Sodium 50 Mcg Tablet) 50 mcg PO DAILY@0600 [facility] Last Admin: 09/11/22 05:30 Dose: 50 mcg Documented By: JAMES Lisinopril (Lisinopril 20 Mg Tablet) 20 mg PO DAILY [facility]; Protocol Last Admin: 09/11/22 07:48 Dose: 20 mg Documented By: ASMITA Memantine (Memantine Hcl 10 Mg Tablet) 10 mg PO BID [facility] Last Admin: 09/11/22 07:48 Dose: 10 mg Documented By: ASMITA Metronidazole (Metronidazole 500 Mg Tablet) 500 mg PO Q8H [facility] Last Admin: 09/11/22 07:48 Dose: 500 mg Documented By: ASMITA Naloxone HCl (Naloxone Hcl Nasal 4 Mg [place]) 4 mg NOSTRILALT Q2M PRN PRN Reason: opioid overdose Ondansetron HCl (Ondansetron Hcl 4 Mg/2 Ml Vial) 4 mg IVPUSH QID PRN PRN Reason: Nausea Last Admin: 09/09/22 19:13 Dose: 4 mg Documented By: ODRISLion Oxycodone HCl (Oxycodone Hcl Immed Release 5 Mg Tablet) 5 mg PO Q4H [facility] Last Admin: 09/11/22 07:48 Dose: 5 mg Documented By: ASMITA Pharmacy Consult (Consult Rx Perform Med Rec) 1 each MISCELLANE ONCE PRN PRN Reason: Consult order Polyethylene Glycol (Polyethylene Glycol 3350 17 Gm Powd.Pack) 17 gm PO DAILY [facility] Last Admin: 09/11/22 07:48 Dose: 17 gm Documented By: ASMITA Pregabalin (Pregabalin 150 Mg Capsule) 300 mg PO BID [facility] Last Admin: 09/11/22 07:48 Dose: 300 mg Documented By: ASMITA Ropinirole HCl (Ropinirole Hcl 1 Mg Tablet) 6 mg PO DAILY@1200 [facility] Last Admin: 09/10/22 11:23 Dose: 6 mg Documented By: DEYSI Ropinirole HCl (Ropinirole Hcl 2 Mg Tablet) 12 mg PO BEDTIME [facility] Last Admin: 09/10/22 20:41 Dose: 12 mg Documented By: JAMES Tamsulosin HCl (Tamsulosin Hcl 0.4 Mg Capsule) 0.4 mg PO BID [facility] Last Admin: 09/11/22 07:48 Dose: 0.4 mg Documented By: ASMITA Tizanidine HCl (Tizanidine Hcl 4 Mg Tablet) 4 mg PO TID PRN PRN Reason: muscle spasticity Last Admin: 09/07/22 21:50 Dose: 4 mg Documented By: CASTINGRIS Trazodone HCl (Trazodone Hcl 100 Mg Tablet) 300 mg PO BEDTIME PRN PRN Reason: insomnia Last Admin: 09/10/22 21:57 Dose: 300 mg Documented By: JAMES Labs 09/10/22 05:51 09/07/22 05:57 Procedures Date of Service Date of Service: 09/11/22 Progress Note: A&P Assessment and plan (1) Abdominal wound dehiscence: Status: Acute Assessment and Plan: status post closure of dehiscence I have advanced his packing on the lower abdomen dressings were changed encouraged to get out of bed continue stool softeners,bowel regimen wound care await bowel movements looks well otherwise consider PT eval Time Spent With Patient Time: Total time managing care of this patient today ____ minutes. Quality Stroke Does the patient have a stroke diagnosis?: No VTE Prior VTE?: No VTE Risk Level:: Surgical - high VTE Device Contraindication: N/A - Device Ordered VTE Drug Contraindication: N/A - Med Ordered
[2022-09-11] MEDS: HYDROmorphone HCl 0.5 MG/0.5 ML SYRINGE IVPUSH (09:57)
[2022-09-11] MEDS: rOPINIRole HCL 1 MG TABLET 6 MG PO (11:57)
[2022-09-11 15:31] VITALS: BP 132/67; PULSE 82; RESP 18; TEMP 36.3; O2SAT 95
[2022-09-11] MEDS: levoFLOXacin/D5W 500 MG/100 ML PIGGYBACK 100 MG IV (17:21)
[2022-09-11 19:26] VITALS: BP 130/73; PULSE 84; RESP 18; TEMP 36.6; O2SAT 98
[2022-09-11] MEDS: rOPINIRole HCL 2 MG TABLET 12 MG PO (21:09)
[2022-09-11] MEDS: Donepezil HCl 10 MG TABLET PO (21:12)
[2022-09-11] MEDS: traZODone HCL 100 MG TABLET 300 MG PO (22:17)
[2022-09-12] MEDS: metroNIDAZOLE 500 MG TABLET PO ×2 (00:59→08:05)
[2022-09-12] MEDS: oxyCODONE HCl Immed Release 5 MG TABLET PO ×4 (00:59→11:40)
[2022-09-12 01:44] VITALS: BP 141/69; PULSE 84; RESP 16; TEMP 36.6; O2SAT 94
[2022-09-12] MEDS: Levothyroxine Sodium 50 MCG TABLET PO (05:01)
[2022-09-12 07:26] VITALS: BP 137/71; PULSE 87; RESP 18; TEMP 37.2; O2SAT 97
--- NOTE | 2022-09-12 07:44 | W.MHC.F2F ---
Service Date Service Date: 09/12/22 Encounter Date of encounter: 09/12/22 Encounter: Wound check and dressing change Reasons for Services Signs and symptoms assessed: Drainage from lower incision of purulent liquid. Erythema has resolved. Sarabjit and retension sutures intact Overseeing Care: Aric Mcneill Homebound: Leaving the home is medically contraindicated at this time without the asist of a device and/or another person due th the listed conditions above and below. Reason homebound: unsteady gait / fall risk, poor balance / fall risk and weakness related to hospital stay Homebound supporting statement: Patient underwent two surgeries within two weeks and is weaked due to a prolonged hospitalization. Certification: Based on the above findings, I certify that this patient is confined to the home and needs intermittent long term care, physical therapy and/or speech therapy, or continues to need occupational therapy. The patient is under my care, and I have initiated the establishment of the plan of care. The patient will be followed by a physician who will periodically review the plan of care. Time Spent With Patient Time: Total time managing care of this patient today ____ minutes.
[2022-09-12] MEDS: Tamsulosin HCL 0.4 MG CAPSULE PO (08:05)
[2022-09-12] MEDS: Finasteride 5 MG TABLET PO (08:05)
[2022-09-12] MEDS: Carbidopa/Levodopa 25/100 TABLET 1 TAB PO (08:05)
[2022-09-12] MEDS: amantadine HCL 100 MG CAPSULE PO (08:05)
[2022-09-12] MEDS: DULoxetine HCl 60 MG CAPSULE.DR PO (08:05)
[2022-09-12] MEDS: Memantine HCl 10 MG TABLET PO (08:06)
[2022-09-12] MEDS: lisinopriL 20 MG TABLET PO (08:06)
[2022-09-12] MEDS: Pregabalin 150 MG CAPSULE 300 MG PO (08:06)
[2022-09-12] MEDS: dilTIAZem HCL CD 240 MG CAP.ER.DEG PO (08:06)
[2022-09-12] MEDS: Fluticasone Propionate Nasal 16 GM SPRAY 1 SPRAY NOSTRIL-B (08:10)
--- NOTE | 2022-09-12 08:58 | MHC.CM.PN ---
pt dcd home no skilled servies ordered by
--- NOTE | 2022-09-12 10:13 | P.DS_ITS ---
DS: Providers Provider Date of Service: 09/12/22 Date of admission: 09/06/22 11:14 Primary care physician: Enrrique Bryan MD Attending physician on admission: Aric Mcneill Consults: 09/06/22 17:03 Consult to Hospitalist Routine Comment: Consulting Provider: Hospitalist Reason For Exam: s/p repair fascia dehiscence, parkinsons, Med vanessa DS: Diagnosis Discharge Diagnosis (1) Abdominal wound dehiscence: Status: Acute DS: Summary Hospital Course Hospital Course: HPI AT ADMISSION: 71-year-old male patient with a previous history of perforated sigmoid diverticulitis status post Milla procedure, now 1 week post closure of colostomy. Patient noted bleeding from the incision was seen emergency department last night. The bleeding continued today and he was subseq uently evaluated in the office. Stat CT confirmed fascial dehiscence. He presents now for closure of fascial dehiscence. HOSPITAL COURSE: On 09/06/22, closure of fascial dehiscence, retention suture placement was performed by Dr. Mcneill without complication. Bowels were intact without evidence of perforation and no abscess was identified. He was admitted to the medical/surgical floor for observation. Abdominal binder was applied. Hospitalist consult was obtained for medical comorbidities. He had an uncomplicated recovery course. He remained inpatient until POD #4 for pain control, gradual increase in activity and wound care. He did develop mucupurulent drainage from the inferior aspect of his incision and some chris were removed. The incision was gently probed and fascia remained intact. Wound flavia were placed which were removed prior to discharge. He was started on IV flagyl and levaquin. His erythema improved and drainage decreased. On the day of discharge, he was tolerating a solid diet without nausea or vomiting. He was moving his bowels. He was ambulating without difficulty. His abdomen was benign with mild tenderness and some serosanguineous drainage from the inferior aspect of his incision. Retention sutures remain in place. He was discharged on 09/12/22 in stable condition with VNA/PT services on PO levaquin and flagyl. He is to follow up in 1 week in the office. Status at Discharge Functional status at discharge: uses cane/walker Overall status at discharge: patient is progressing back to baseline Time Spent with Patient Time attestation: Total time managing care of this patient today ____ minutes. Discharge coordination time: Less than 30 minutes Quality: Safe Use of Opioids Does Pt have an Active Cancer Diagnosis on the Problem List?: No Quality: Stroke Does the patient have a stroke diagnosis?: No Physical Exam Vital Signs: Vital Signs: Last Vital Signs Temp 99 F 09/12/22 07:26 Pulse 87 09/12/22 07:26 Resp 18 09/12/22 07:26 BP 137/71 09/12/22 07:26 Pulse Ox 97 09/12/22 07:26 O2 Del Method Room Air 09/12/22 07:26 O2 Flow Rate 2 09/07/22 14:42 BMI result Body Mass Index 29.8 Const: General: comfortable, no acute distress and alert Orientation/consciousness: patient oriented x3 Resp: Effort & Inspection: normal respiratory effort GI: Other: incision clean with minimal residual erythema, retention sutures in place, opening of incision at inferior aspect with some serosanguineous drainage, non purulent appearing Inspection: No distended Palpation (GI): Soft to palpation, Tenderness to palpation present (GI) (incisional, most at inferior aspect), no guarding and not rigid Skin: General skin exam: no rashes or lesions noted Neuro: General: patient oriented x3 and moves all extremities DS: Data Data Completed and Pending Completed studies during hospitalization [Text1]: Procedures Bypass Sigmoid Colon to Cutaneous with Autologous Tissue Substitute, Open Approach (05/18/22) Excision of Sigmoid Colon, Open Approach (05/18/22) Repair Abdominal Wall, Open Approach (05/18/22) Repair Abdominal Wall, Stoma, External Approach (05/18/22) Reposition Sigmoid Colon, Open Approach (08/30/22) Discharge Plan Discharge Anticipated Discharge Date/Time: 09/12/22 07:35 Patient Disposition: Home Health Service Discharge Diagnosis: Abdominal Fascial dehiscence Referrals: caretenders [Other] - 1 Week Enrrique Bryan MD [Primary Care Provider] - 1 Week Aric Mcneill MD [Physician] - 1 Week Discharge Medications: New levofloxacin 500 mg tablet 500 mg PO DAILY 5 Days Qty: 5 0RF metronidazole 500 mg tablet 500 mg PO Q8H Qty: 15 0RF Continued diltiazem HCl 240 mg capsule,extended release 24hr 240 mg PO DAILY Qty: 90 3RF baclofen 20 mg tablet 20 mg PO BID PRN (Reason: pain (scale score 4-6)) 30 Days Qty: 60 3RF oxycodone 5 mg tablet 5 mg PO Q4H MDD 5 PRN (Reason: pain) 14 Days Qty: 70 0RF Rx Instructions: Please use this prescription to taper off medication, two week compassionate prescription. amantadine HCl 100 mg tablet 1 tab PO TID lisinopril 20 mg tablet 1 tab PO DAILY ropinirole 3 mg tablet 6 mg PO DAILY@1200 trazodone 100 mg tablet 3 tab PO BEDTIME Patient Comments: Patient reports taking this nightly, and not as needed. Home med list updated to reflect actual use buspirone 10 mg tablet 1 tab PO BID PRN (Reason: Anxiety) cholecalciferol (vitamin D3) [Vitamin D3] 50 mcg (2,000 unit) Tablet 50 mcg PO DAILY tizanidine 4 mg tablet 4 mg PO TID PRN (Reason: muscle spasticity) pantoprazole 40 mg tablet,delayed release (DR/EC) 40 mg PO DAILY@0630 ondansetron HCl 4 mg tablet 4 mg PO DAILY PRN (Reason: Nausea) ropinirole 3 mg tablet 12 mg PO BEDTIME Rx Instructions: starting to reduce to stop levothyroxine 50 mcg tablet 50 mcg PO DAILY@0600 lidocaine 5 % adhesive patch,medicated 1 patch topical BID Rx Instructions: leave on most painful area for up to 12 hrs diclofenac sodium 1 % gel 2 g topical QID PRN (Reason: Inflammation) Rx Instructions: apply to single elbow, wrist or hand; for hand includes palm/fingers/back of hand carbidopa-levodopa 25-100 mg tablet 1 tab PO TID tamsulosin 0.4 mg capsule 0.4 mg PO BID finasteride 5 mg tablet 5 mg PO DAILY multivitamin [Daily Multi-Vitamin] Tablet 1 tab PO DAILY fluticasone propionate 50 mcg/actuation spray,suspension 1 spray intranasal BID Rx Instructions: administer into both nostrils duloxetine 60 mg capsule,delayed release(DR/EC) 60 mg PO DAILY pregabalin 300 mg capsule 300 mg PO BID memantine 10 mg tablet 10 mg PO BID donepezil 10 mg tablet 10 mg PO BEDTIME naloxone [Narcan] 4 mg/actuation spray,non-aerosol 4 mg intranasal Q2M PRN (Reason: opioid overdose) Qty: 2 0RF Rx Instructions: spray 1 dose into ONE nostril; alternate nostrils w each dose until help arrives Discharge Orders: Discharge Order (Routine); Ordered 09/12/22 Ordered By: Aric Mcneill Diet: Advance to usual diet Activity on Discharge: No heavy lifting Stand Alone Forms: Patient Portal Discharge page Activity Restrictions/Additional Instructions: No lifting > 10 pounds for 4 weeks No driving Dressing change daily and as needed Abdominal binder over incision at all times Follow up in office in one week. Care Plan Goals: Return to normal activity and diet after full recovery from surgery Health Concerns: closure of colostomy; repair of wound dehiscence. Plan of Treatment: home physical therapy; no lifting > 10 pounds for one month Assessment: Perforated sigmoid diverticulitis, wound dehiscence
[2022-09-12] MEDS: rOPINIRole HCL 1 MG TABLET 6 MG PO (11:40)
== END 2022-09-12 11:46 | disposition home health service (06) | DRG 909 ==
LOC: HO.SSSA 11:20 → HO.S3 14:09
PROVIDERS: Admitting Provider Surgery; PCP Internal Medicine; Visit Provider Surgery
PROC: 0WQF0ZZ Repair Abdominal Wall, Open Approach (ICD-10-PCS; principal; 2022-09-06 12:00)
DX: T81.32XA Disruption of internal operation (surgical) wound, not elsewhere classified, initial encounter (principal); Y83.8 Other surgical procedures as the cause of abnormal reaction of the patient, or of later complication, without mention of misadventure at the time of the procedure; K21.9 Gastro-esophageal reflux disease without esophagitis; N40.0 Benign prostatic hyperplasia without lower urinary tract symptoms; G47.33 Obstructive sleep apnea (adult) (pediatric); I10 Essential (primary) hypertension; G20 Parkinson's disease; F02.80 Dementia in other diseases classified elsewhere, unspecified severity, without behavioral disturbance, psychotic disturbance, mood disturbance, and anxiety; G25.81 Restless legs syndrome; E03.9 Hypothyroidism, unspecified; G89.29 Other chronic pain; Z87.891 Personal history of nicotine dependence; Z91.199 Patient's noncompliance with other medical treatment and regimen due to unspecified reason; Z88.1 Allergy status to other antibiotic agents; Z88.2 Allergy status to sulfonamides; Z79.51 Long term (current) use of inhaled steroids; Z79.890 Hormone replacement therapy; Z79.899 Other long term (current) drug therapy
CPT/HCPCS: 36415; 74176; 80048; 80053; 85025; 86850; 86900; 86901; 97162; 99284; C1758; J0131; J1100; J1170; J1956; J2250; J2405; J3010

== ENCOUNTER → 2022-09-19 09:09 | Outpatient (BNVA) | payer MEDICARE, OTHER, SELFPAY | PROVIDERS: PCP Internal Medicine; Visit Provider Surgery | DX: T81.31XD Disruption of external operation (surgical) wound, not elsewhere classified, subsequent encounter (principal); Z98.890 Other specified postprocedural states | CPT/HCPCS: 99212 ==

== ENCOUNTER → 2022-09-21 10:10 | Outpatient (BNVA) | payer MEDICARE, OTHER, SELFPAY | PROVIDERS: PCP Internal Medicine; Visit Provider Anesthesiology | DX: Z51.81 Encounter for therapeutic drug level monitoring (principal); F11.20 Opioid dependence, uncomplicated; G89.4 Chronic pain syndrome | CPT/HCPCS: 99211 ==

== ENCOUNTER 2022-10-04 08:12 | Outpatient (REF) | payer MEDICARE, OTHER, SELFPAY ==
--- NOTE | ~2022-10-04 | XR_ITS ---
EXAMINATION: XR CLAVICLE, LEFT CLINICAL INFORMATION: Follow-up distal left clavicular fracture. COMPARISON: None available. TECHNIQUE: Straight AP and cephalad angulated AP views of the left clavicle. FINDINGS: There is stable alignment of a displaced left clavicular fracture. The distal fracture fragment shows 3.4 cm of inferior displacement. No callus formation is seen. The glenohumeral joint is intact and shows moderate osteoarthritic change. The acromioclavicular and coracoclavicular intervals are normal. There is cortical irregularity of the greater tuberosity of the proximal left humerus, and a distal acromial undersurface osteophyte is seen, together suggesting rotator cuff impingement. No joseluis calcific tendinitis is seen. There is no foreign body. No left pneumothorax is seen. XR/XR clavicle LT IMPRESSION: 1. There is stable significant displacement of the distal left clavicular fracture. There is no bony union noted. 2. There is moderate osteoarthritic change of the left glenohumeral joint. 3. Findings suggest possible left rotator cuff impingement.
== END 2022-10-04 08:13 | disposition home or self-care (01) ==
LOC: HO.HOSX 08:12
PROVIDERS: Visit Provider Physician Assistant
DX: M89.8X1 Other specified disorders of bone, shoulder (principal); S42.033A Displaced fracture of lateral end of unspecified clavicle, initial encounter for closed fracture
CPT/HCPCS: 73000; 99202

== ENCOUNTER → 2022-10-11 11:30 | Outpatient (BNVA) | payer MEDICARE, OTHER, SELFPAY | PROVIDERS: PCP Internal Medicine; Visit Provider Surgery ==

== ENCOUNTER → 2022-10-18 10:57 | Outpatient (BNVA) | payer MEDICARE, OTHER, SELFPAY | PROVIDERS: PCP Internal Medicine; Visit Provider Anesthesiology | DX: G20 Parkinson's disease (principal); M17.0 Bilateral primary osteoarthritis of knee; M54.2 Cervicalgia; M96.1 Postlaminectomy syndrome, not elsewhere classified; G89.4 Chronic pain syndrome; G25.81 Restless legs syndrome; Z79.891 Long term (current) use of opiate analgesic | CPT/HCPCS: 99212 ==

== ENCOUNTER 2022-11-02 12:19 | Outpatient (AMB) | payer MEDICARE, OTHER, SELFPAY ==
[2022-11-02 12:30] VITALS: BP 116/72; PULSE 70; BMI 31.8
--- NOTE | 2022-11-02 12:30 | A.OFFVIS_ITS ---
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 Allergies Sulfa (Sulfonamide Antibiotics) Allergy (Severe, Verified 10/18/22 11:14) HIVES/DIFF.BREATHING vancomycin [VANCOMYCIN] Allergy (Severe, Verified 10/18/22 11:14) SHORTNESS OF BREATH cephalexin [CEPHALEXIN] Allergy (Intermediate, Verified 10/18/22 11:14) SHORTNESS OF BREATH Medication List - Last Reconciled 11/02/22 by Carlos A Collins MD amantadine HCl 1 tab PO TID baclofen 20 mg PO QID 30 days buspirone 1 tab PO BID PRN carbidopa-levodopa 25-100 mg 1 tab PO TID cholecalciferol (vitamin D3) (Vitamin D3) 50 mcg PO DAILY diclofenac sodium 1% 2 grams topical QID PRN diltiazem HCl 240 mg PO DAILY donepezil 10 mg PO BEDTIME duloxetine 60 mg PO DAILY finasteride 5 mg PO DAILY fluticasone propionate 50 mcg/actuation 1 spray intranasal BID levothyroxine 50 mcg PO DAILY@0600 lidocaine 5% 1 patch topical BID lisinopril 20 mg PO DAILY memantine 10 mg PO BID metronidazole 500 mg PO Q8H multivitamin (Daily Multi-Vitamin tablet) 1 tab PO DAILY naloxone 4 mg/actuation (Narcan) 4 mg intranasal Q2M PRN ondansetron HCl 4 mg PO DAILY PRN oxycodone 5 mg PO Q4H PRN 30 days MDD 5 pantoprazole 40 mg PO DAILY@0630 pregabalin 300 mg PO BID ropinirole 6 mg PO DAILY@1200 ropinirole 12 mg PO BEDTIME tamsulosin 0.4 mg PO BID trazodone 3 tabs PO BEDTIME HPI HPI Comments History of Present Illness Details Kevan comes for follow-up. He has had significant issues from surgical perspective in the last year. From cardiac perspective has done well. He says heart rate remains controlled and his blood pressure is better controlled. Denies any palpitations. His taking all Cardizem long-acting. Denies any lightheadedness, syncope. Denies any prolonged palpitations. [facility] Medical History Abdominal wound dehiscence Bilateral primary osteoarthritis of knee BPH (benign prostatic hyperplasia) Chronic pain syndrome Failed back syndrome of cervical spine GERD (gastroesophageal reflux disease) Hard of hearing History of diverticulitis HTN (hypertension) Hypertensive heart disease Hypothyroidism Neck pain PAC (premature atrial contraction) Parkinsons Restless leg syndrome Upper back pain, chronic Wound dehiscence Surgical History H/O exploratory laparotomy (05/18/22) H/O neck surgery History of colostomy reversal History of foot surgery History of surgery (05/29/22) History of surgery (09/06/22) History of total left knee replacement (TKR) Hx laparoscopic cholecystectomy Hx of colonoscopy Hx of fusion of cervical spine Hx of hernia repair Social History Household Members: Spouse Household Members Other:: 1 Housing: House Are you a primary patient care provider to a significant other at home: No Do you presently have visiting nurse or other home services: Yes (PT) Alcohol intake: current Alcohol intake frequency: holidays/special occasions only Patient Tobacco Use Status: Former Tobacco user Quit Date: >30 yrs ago Tobacco use type: Cigarette e-Cigarette/Vaping Use: Former Use Second Hand Smoke Exposure: No Substance Use Type: Marijuana and Prescription Drugs Advance Directives Date on File: 01/19/20 service: No Current occupational status: retired Review of Systems Const Denies chills, Denies fatigue, Denies fever(s), Denies frequent falls, Denies weakness, Denies weight gain and Denies weight loss ENT Denies dizziness Card Denies chest pain, Denies leg edema, Denies lightheadedness, Denies palpitations, Denies dyspnea, Denies dyspnea on exertion, Denies orthopnea and Denies other (loss of consciousness) Resp Denies cough, Denies dyspnea and Denies dyspnea on exertion GI Denies hematochezia and Denies change in stool character Musc Denies abnormal gait, Denies muscle weakness, Denies numbness, Denies radiating pain into limb and Denies tingling Neuro Denies abnormal gait, Denies dizziness, Denies frequent falls, Denies numbness, Denies tingling and Denies weakness Endo Denies fatigue and Denies palpitations Physical Exam Vital Signs: Last Vital Signs Pulse 70 11/02/22 12:30 BP 116/72 11/02/22 12:30 BMI result Body Mass Index 31.8 Const General: cooperative, comfortable, no acute distress, alert, awake and well groomed Nutritional Appearance: overweight Orientation/consciousness: patient oriented x3 Limitations: no limitations Neck Neck: Yes trachea midline and Yes no JVD Resp Effort & Inspection: normal respiratory effort Auscultation: clear to auscultation bilaterally Cardio Jugular venous distension: no JVD Palpation: normal PMI Rate: regular rate Rhythm: regular rhythm Heart sounds: S1 normal heart sound present, S2 normal heart sound present, no click, no gallops, no murmurs, no rubs and Other heart sounds present (Soft S4 present) GI Auscultation: normal bowel sounds Skin General skin exam: no rashes or lesions noted Neuro General: patient oriented x3, no focal motor deficits and other (Parkinsonian tremor present) Extrem General: Yes no clubbing, cyanosis or edema Psych Appearance: grossly normal Assessment & Plan Assessment & Plan (1) PAC (premature atrial contraction): Code(s): I49.1 - Atrial premature depolarization Plan: Highly symptomatic PACs which has remained suppressed on long-acting Cardizem therapy. Continue the same. Avoidance of stimulants was discussed. No change in pharmacotherapy. Blood pressure is also very well control at this point time. Currently his dealing with deconditioning related to multiple hospitalizations and surgeries. Continue focus on rehab and improve nutrition. Will follow up in the clinic 1 year's time, sooner p.r.n.. Thank you for allowing me to partake in his care Medications: Changed From metronidazole 500 mg PO Q8H 15 tabs 0RF T81.30XA - Disruption of wound, unspecified, initial encounter To metronidazole 500 mg PO Q8H T81.30XA - Disruption of wound, unspecified, initial encounter Discontinued tizanidine 4 mg PO BID 30 days PRN 60 tabs 3RF muscle spasticity G89.4 - Chronic pain syndrome Coding Level of Care Code Est Pt Level 3 (43023) Diagnoses PAC (premature atrial contraction) I49.1
== END 2022-11-02 12:48 | disposition home or self-care (01) ==
PROVIDERS: Visit Provider Internal Medicine Cardiovascular Disease
DX: I49.1 Atrial premature depolarization (principal)
CPT/HCPCS: 99213

== ENCOUNTER → 2022-11-02 12:19 | Outpatient (BNVA) | payer MEDICARE, OTHER, SELFPAY | PROVIDERS: Visit Provider Internal Medicine Cardiovascular Disease | DX: I49.1 Atrial premature depolarization (principal) | CPT/HCPCS: 99212 ==

== ENCOUNTER 2022-11-10 09:40 | Outpatient (AMB) | payer MEDICARE, OTHER, SELFPAY ==
--- NOTE | 2022-11-10 09:44 | A.OFFVIS_ITS ---
Intake Vital Signs 11/10/22 09:52 Height 5 ft 7 in Weight 202 lb 13.204 oz BMI 31.8 BP 142/63 H Blood Pressure Location Lt brachial Position Sitting Pulse 92 Intake Visit Reasons: 1 mth follow up closure of fascial dehiscence Intake Note: Patient is seen in office for one month follow up visit, post closure of fascial dehiscence. Patient c/o: on Sunday notice the wound open up and has discharge pus has nurse coming in once a week, she applied dressing to the area, no redness or odor Director Of Cath Lab Required: No Accompanied by: Spouse Allergies Sulfa (Sulfonamide Antibiotics) Allergy (Severe, Verified 11/10/22 09:52) HIVES/DIFF.BREATHING vancomycin [VANCOMYCIN] Allergy (Severe, Verified 11/10/22 09:52) SHORTNESS OF BREATH cephalexin [CEPHALEXIN] Allergy (Intermediate, Verified 11/10/22 09:52) SHORTNESS OF BREATH Medication List - Last Reconciled 11/10/22 by Aric Mcneill MD amantadine HCl 1 tab PO TID baclofen 20 mg PO QID 30 days buspirone 1 tab PO BID PRN carbidopa-levodopa 25-100 mg 1 tab PO TID cholecalciferol (vitamin D3) (Vitamin D3) 50 mcg PO DAILY diclofenac sodium 1% 2 grams topical QID PRN diltiazem HCl 240 mg PO DAILY donepezil 10 mg PO BEDTIME duloxetine 60 mg PO DAILY finasteride 5 mg PO DAILY fluticasone propionate 50 mcg/actuation 1 spray intranasal BID levothyroxine 50 mcg PO DAILY@0600 lidocaine 5% 1 patch topical BID lisinopril 20 mg PO DAILY memantine 10 mg PO BID metronidazole 500 mg PO Q8H multivitamin (Daily Multi-Vitamin tablet) 1 tab PO DAILY naloxone 4 mg/actuation (Narcan) 4 mg intranasal Q2M PRN ondansetron HCl 4 mg PO DAILY PRN oxycodone 5 mg PO Q4H PRN 30 days MDD 5 pantoprazole 40 mg PO DAILY@0630 pregabalin 300 mg PO BID ropinirole 6 mg PO DAILY@1200 ropinirole 12 mg PO BEDTIME tamsulosin 0.4 mg PO BID trazodone 3 tabs PO BEDTIME HPI HPI Comments History of Present Illness Details Patient returns for wound check. Wounds were healed until Sunday w hen he began to notice discharge from the incision with some purulence discharge. He denies fever, chills, or increased abdominal pain. A dry sterile dressing was applied. Discharge is now clear. [facility] Medical History Abdominal wound dehiscence Bilateral primary osteoarthritis of knee BPH (benign prostatic hyperplasia) Chronic pain syndrome Failed back syndrome of cervical spine GERD (gastroesophageal reflux disease) Hard of hearing History of diverticulitis HTN (hypertension) Hypertensive heart disease Hypothyroidism Neck pain PAC (premature atrial contraction) Parkinsons Restless leg syndrome Upper back pain, chronic Wound dehiscence Surgical History H/O exploratory laparotomy (05/18/22) H/O neck surgery History of colostomy reversal History of foot surgery History of surgery (05/29/22) History of surgery (09/06/22) History of total left knee replacement (TKR) Hx laparoscopic cholecystectomy Hx of colonoscopy Hx of fusion of cervical spine Hx of hernia repair Social History Household Members: Spouse Household Members Other:: 1 Housing: House Are you a primary caretaker grounds to a significant other at home: No Do you presently have visiting nurse or other home services: Yes (PT) Alcohol intake: current Alcohol intake frequency: holidays/special occasions only Patient Tobacco Use Status: Former Tobacco user Quit Date: >30 yrs ago Tobacco use type: Cigarette e-Cigarette/Vaping Use: Former Use Second Hand Smoke Exposure: No Substance Use Type: Marijuana and Prescription Drugs Advance Directives Date on File: 01/19/20 service: No Current occupational status: retired Physical Exam Vital Signs: Last Vital Signs Pulse 92 11/10/22 09:52 BP 142/63 H 11/10/22 09:52 BMI result Body Mass Index 31.8 Const General: comfortable Nutritional Appearance: well nourished Orientation/consciousness: patient oriented x3 Limitations: no limitations Resp Effort & Inspection: normal respiratory effort GI Other: Midline incision with 3 areas that are slightly with underlying granulation tissue. Gentle probing with a Q-tip however reveals no deep track. Dry sterile dressing was applied. No hernia identified with Valsalva maneuvers. Remaining incision is clean and intact. Inspection: Yes normal to inspection Palpation (GI): Soft to palpation, nontender, no guarding and not rigid Neuro General: patient oriented x3 Assessment & Plan Assessment & Plan (1) Abdominal wound dehiscence: Code(s): T81.30XA - Disruption of wound, unspecified, initial encounter (2) Acute abdomen: Code(s): R10.0 - Acute abdomen Plan Patient returns with wound separation which appears very superficial and may be related to a spit dermal suture. I recommended applying a dry sterile dressing. He should return in 2 weeks if no improvement. Patient expressed understanding and agrees with this plan. Medications: Discontinued tizanidine 4 mg PO BID 30 days PRN 60 tabs 3RF muscle spasticity G89.4 - Chronic pain syndrome Coding Level of Care Code Global (95586) Diagnoses Abdominal wound dehiscence T81.30XA Acute abdomen R10.0
[2022-11-10 09:52] VITALS: BP 142/63; PULSE 92; BMI 31.8
== END 2022-11-10 10:00 | disposition home or self-care (01) ==
PROVIDERS: PCP Internal Medicine; Visit Provider Surgery
DX: T81.30XA Disruption of wound, unspecified, initial encounter (principal); R10.0 Acute abdomen
CPT/HCPCS: 99024

== ENCOUNTER → 2022-11-10 09:40 | Outpatient (BNVA) | payer MEDICARE, OTHER, SELFPAY | PROVIDERS: PCP Internal Medicine; Visit Provider Surgery ==

== ENCOUNTER → 2022-11-15 10:55 | Outpatient (BNVA) | payer MEDICARE, OTHER, SELFPAY | PROVIDERS: PCP Internal Medicine; Visit Provider Anesthesiology | DX: G89.4 Chronic pain syndrome (principal); Z51.81 Encounter for therapeutic drug level monitoring; Z79.899 Other long term (current) drug therapy | CPT/HCPCS: 99211 ==

== ENCOUNTER 2022-11-23 08:56 | Emergency (ER) | payer MEDICARE, OTHER, SELFPAY ==
--- NOTE | ~2022-11-23 | CT_ITS ---
EXAMINATION: CT ANGIOGRAM OF THE CHEST WITH AND WITHOUT CONTRAST (CT PULMONARY ANGIOGRAM FOR PE) CLINICAL INFORMATION: Reason for Exam SOB COMPARISON: None available. TECHNIQUE: Prior to contrast administration, noncontrast localization images were obtained. Subsequently, multidetector volumetric imaging was performed from the thoracic inlet to below the diaphragms following the administration of 80 mL Omnipaque 350 intravenous contrast. No contrast reaction reported Sagittal, coronal, and MIP oblique sagittal reformatted images were obtained on the CT workstation, uploaded to PACS, and reviewed. This CT examination was performed using dose optimization techniques as appropriate, variously including the following: *Automated exposure control *Adjustment of mA and/or kV according to patient size (this includes techniques or standardized protocols for targeted exams where dose is matched to indication/reason for exam; i.e. extremities or head) *Use of iterative reconstruction technique Total exam dose-length product 431 mGy-cm FINDINGS: QUALITY OF STUDY/CONTRAST BOLUS: Satisfactory. PULMONARY ARTERIES: No pulmonary emboli. THORACIC AORTA: No aneurysm. LUNG: The lungs are well-expanded and clear of acute pneumonic consolidation. No pulmonary nodule, mass or groundglass density seen. PLEURA: No pleural effusion or pneumothorax. MEDIASTINUM: Normal heart size. No pericardial effusion. No hilar or mediastinal lymphadenopathy. No evidence of septal bowing or right heart strain. CORONARY ARTERY CALCIFICATION: None visualized on this study. CHEST WALL/AXILLA: No axillary or internal mammary lymphadenopathy. OSSEOUS STRUCTURES: There is cervical-thoracic Maxwell rods extending to T8 vertebra. Bipedicle screws are seen at T8, T7, T6, T5, T4, T3 and T1 vertebra the upper and mid cervical spine is not in the [id number]. There is loss of T8 vertebral height UPPER ABDOMEN: Visualized liver, spleen, pancreas and bilateral adrenal glands unremarkable. No reflux of contrast into the hepatic veins to suggest elevated right heart pressures. CT/CT angio chest PE protocol IMPRESSION: 1. No evidence of PE. 2. No evidence of aortic aneurysm. 3. The lungs are clear. VTE: negative.
--- NOTE | ~2022-11-23 | XR_ITS ---
EXAMINATION: XR CHEST CLINICAL INFORMATION: Shortness of breath. COMPARISON: 05/18/2022 TECHNIQUE: 2 views of the chest were obtained. FINDINGS: The lungs are well expanded. No focal consolidation. No pleural effusion. Cardiac silhouette is unchanged. Hardware in the cervicothoracic spine is partially imaged. XR/XR chest 2V IMPRESSION: No acute abnormality.
[2022-11-23 09:04] VITALS: BP 149/74; PULSE 77; RESP 20; TEMP 36.6; O2SAT 100; BMI 31.0
--- NOTE | 2022-11-23 09:08 | ECG_ITS ---
Test Reason : cp Blood Pressure : / mmHG Vent. Rate : 074 BPM Atrial Rate : 394 BPM P-R Int : 000 ms QRS Dur : 140 ms QT Int : 410 ms P-R-T Axes : 007 -39 006 degrees QTc Int : 455 ms Normal sinus rhythm Left axis deviation Right bundle branch block Abnormal ECG When compared with ECG of 17-MAY-2022 21:58, No significant changes seen Referred By: Generic ED Physician Electronically Signed By:Claude Novoa
--- NOTE | 2022-11-23 10:03 | ED.SOB ---
HPI - SOB/Dyspnea General Chief Complaint: Dyspnea Stated Complaint: SOB Time Seen by Provider: 11/23/22 09:18 Source: patient and family () Mode of arrival: ambulatory History of Present Illness HPI Narrative: 72-year-old male with multiple medical comorbidities comes in with his today for worsening shortness of breath, he states that is been off and on over the past couple of weeks but has progressively worsened. This is not been associated with any fever, chills, he has felt somewhat nauseous at baseline, denies any medication changes or abdominal pain, denies any chest pain or palpitations, denies any new cough or sore throat. Related Data Home Medications Medication Instructions Recorded Confirmed carbidopa 25 mg-levodopa 100 mg 1 tab PO TID 01/21/20 11/15/22 tablet diclofenac sodium 1 % topical gel 2 g topical QID PRN Inflammation 01/21/20 11/15/22 finasteride 5 mg tablet 5 mg PO DAILY 01/21/20 11/15/22 levothyroxine 50 mcg tablet 50 mcg PO DAILY@0600 01/21/20 11/15/22 lidocaine 5 % topical patch 1 patch topical BID 01/21/20 11/15/22 multivitamin (Daily Multi-Vitamin 1 tab PO DAILY 01/21/20 11/15/22 tablet) tamsulosin 0.4 mg capsule 0.4 mg PO BID 01/21/20 11/15/22 ondansetron HCl 4 mg tablet 4 mg PO DAILY PRN Nausea 09/15/20 11/15/22 pantoprazole 40 mg tablet,delayed 40 mg PO DAILY@0630 09/15/20 11/15/22 release ropinirole 3 mg tablet 12 mg PO BEDTIME 10/21/20 11/15/22 fluticasone propionate 50 1 spray intranasal BID 10/27/20 11/15/22 mcg/actuation nasal spray,suspension donepezil 10 mg tablet 10 mg PO BEDTIME 10/07/21 11/15/22 duloxetine 60 mg capsule,delayed 60 mg PO DAILY 10/07/21 11/15/22 release memantine 10 mg tablet 10 mg PO BID 10/07/21 11/15/22 pregabalin 300 mg capsule 300 mg PO BID 10/07/21 11/15/22 amantadine HCl 100 mg tablet 1 tab PO TID 04/12/22 11/15/22 buspirone 10 mg tablet 1 tab PO BID PRN Anxiety 04/12/22 11/15/22 cholecalciferol (vitamin D3) 50 50 mcg PO DAILY 04/12/22 11/15/22 mcg (2,000 unit) tablet (Vitamin D3) ropinirole 3 mg tablet 6 mg PO DAILY@1200 04/12/22 11/15/22 trazodone 100 mg tablet 3 tab PO BEDTIME 04/12/22 11/15/22 lisinopril 20 mg tablet 20 mg PO DAILY 11/02/22 11/15/22 metronidazole 500 mg tablet 500 mg PO Q8H 11/02/22 11/15/22 Previous Rx's Medication Instructions Recorded diltiazem HCl 240 mg 240 mg PO DAILY #90 caps 03/27/22 capsule,extended release 24 hr naloxone 4 mg/actuation nasal 4 mg intranasal Q2M PRN opioid 05/05/22 spray (Narcan) overdose #2 ea baclofen 20 mg tablet 20 mg PO QID 30 days #120 tabs 10/18/22 oxycodone 5 mg tablet 5 mg PO Q4H PRN pain 30 days #150 11/16/22 tabs Allergies Allergy/AdvReac Type Severity Reaction Status Date / Time Sulfa (Sulfonamide Allergy Severe HIVES/DIFF. Verified 11/23/22 09:07 Antibiotics) BREATHING vancomycin [VANCOMYCIN] Allergy Severe SHORTNESS Verified 11/23/22 09:07 OF BREATH cephalexin [CEPHALEXIN] Allergy Intermediate SHORTNESS Verified 11/23/22 09:07 OF BREATH Review of Systems Review of Systems: Pertinent positives and negatives as stated in [facility] Past Medical History Source: nursing notes reviewed Medical History Abdominal wound dehiscence Bilateral primary osteoarthritis of knee BPH (benign prostatic hyperplasia) Chronic pain syndrome Failed back syndrome of cervical spine GERD (gastroesophageal reflux disease) Hard of hearing History of diverticulitis HTN (hypertension) Hypertensive heart disease Hypothyroidism Neck pain PAC (premature atrial contraction) Parkinsons Restless leg syndrome Upper back pain, chronic Wound dehiscence Surgical History H/O exploratory laparotomy (05/18/22) H/O neck surgery History of colostomy reversal History of foot surgery History of surgery (05/29/22) History of surgery (09/06/22) History of total left knee replacement (TKR) Hx laparoscopic cholecystectomy Hx of colonoscopy Hx of fusion of cervical spine Hx of hernia repair Social History Social History Household Members: Spouse Household Members Other:: 1 Housing: House Are you a primary home health aide caregiver to a significant other at home: No Do you presently have visiting nurse or other home services: Yes (PT) Alcohol intake: current Alcohol intake frequency: holidays/special occasions only Patient Tobacco Use Status: Former Tobacco user Quit Date: >30 yrs ago Tobacco use type: Cigarette e-Cigarette/Vaping Use: Former Use Second Hand Smoke Exposure: No Substance Use Type: Marijuana and Prescription Drugs Advance Directives: No Advance Directives Information Provided: Yes Advance Directives Date on File: 01/19/20 service: No Current occupational status: retired Physical Exam Vital Signs: Vital Signs: Last Vital Signs Temp 97.8 F 11/23/22 09:04 Pulse 65 11/23/22 14:44 Resp 12 11/23/22 14:44 BP 134/76 11/23/22 14:44 Pulse Ox 98 11/23/22 14:44 O2 Del Method Room Air 11/23/22 14:44 BMI result Body Mass Index 31.0 VITAL SIGNS: Reviewed. GENERAL: Well developed, well nourished, in no acute distress. HEAD: Normocephalic/atraumatic EYES: PERRLA, EOMI EARS: Ext canals without abnormality NOSE: Nares patent bilateral OROPHARYNX: no oral lesions noted, posterior pharynx clear NECK: Supple, no adenopathy LUNGS: Decreased breath sounds in right lower base, no rales/rhonchi/crackles, there is tachypnea. SpO2<100> CARDIOVASCULAR: Regular rate and rhythm without noted murmurs, no JVD or lower extremity edema. ABDOMEN: Soft, midline abdominal incision from recent surgeries since May, non-distended with bowel sounds. MUSCULOSKELETAL: No tenderness, deformities, or effusions noted on gross inspection. EXTREMITIES: No cyanosis, clubbing or edema. SKIN: Inspection of the skin reveals no rashes NEUROLOGIC: Alert and oriented x 4. Strength and sensation to light touch were grossly intact x 4. Medications Administered Discontinued Medications Generic Name Dose Route Start Last Admin Trade Name Flaco PRN Reason Stop Dose Admin Iohexol 100 ml 11/23/22 11:27 11/23/22 11:27 Iohexol 350 Mg/Ml 100 Ml Infus..Btl IV 11/23/22 11:28 65 ml ONCE ONE Administration Medical Decision Making Medical Decision Making [facility] Narrative: 72-year-old male with history and clinical presentation, DDX: Suspect possible PE as patient is not febrile and so pneumonia less likely. On clinical exam no evidence to suggest a COPD or CHF exacerbation. I reviewed all investigations and hematologic indices do not demonstrate a leukocytosis or left shift, the there is a chronically stable normocytic anemia and no evidence of thrombocytopenia. D-dimer was noted to be elevated, but given recent bout with multiple surgeries there was a high index of suspicion for possible PE although hemodynamically stable. On review of CT scan there is no evidence of VTE and otherwise my interpretation is in agreement with radiology's impression. Chemistry indices demonstrate a mild bump in the sodium and potassium this may be reflective of recent IV fluid administration otherwise electrolytes are grossly within normal limits, there is no LILIANA, troponin is undetectable in there are no acute changes appreciated on the EKG. There is no clinical evidence of CHF and this is further other supported by absence of venous congestion on chest x-ray and CT scan. All results discussed with the patient at bedside. My interpretation is patient may be experiencing shortness of breath secondary to deconditioning and recommend follow-up with his primary care provider and possible exploration of physical therapy. Differential Diagnosis Differential Diagnoses: The differential diagnosis associated with the presentation includes Please see the discussion above Admission/Observation Consideration of admission/observation: Escalation of care including admission/observation considered Please see the discussion above Lab Data [facility] Lab Attestation statement: I reviewed the patient's lab results. Please see the discussion above 11/23/22 10:09 11/23/22 10:09 Labs: Lab Results 11/23/22 11/23/22 11/23/22 Range/Units 10:09 10:09 10:09 WBC 6.8 (4.8-10.8) X10*3/uL RBC 4.42 L D (4.60-5.80) X10*6/uL Hgb 12.3 L (14.0-18.0) g/dl Hct 40.8 L D (42.0-52.0) % MCV 92.3 (80.0-98.0) fL MCH 27.8 (27.0-33.0) pg MCHC 30.1 L (31.0-36.0) g/dl RDW 14.6 (11.0-16.0) % Plt Count 220 D (160-400) X10*3/uL MPV 9.3 L (9.4-12.4) fL Immature Gran % (Auto) 0.4 (0.0-0.4) % Neut % (Auto) 66.9 (45-73) % Lymph % (Auto) 16.0 L (20-40) % Wilcox % (Auto) 9.3 (2-11) % Eos % (Auto) 5.3 H (0-4) % Baso % (Auto) 2.1 H (0-2) % Lymph # (Auto) 1.1 L (1.2-4.9) X10*3/uL Wilcox # (Auto) 0.6 (0.1-1.2) X10*3/uL Eos # (Auto) 0.4 (0.0-0.4) X10*3/uL Baso # (Auto) 0.1 (0.0-0.2) X10*3/uL Abs Immat Gran (auto) 0.03 (0.00-0.03) X10*3/uL Absolute Neuts (auto) 4.6 (2.0-8.3) x10*3/uL Absolute Nucleated RBC 0.000 (0.0-0.012) X10*3/uL Nucleated RBC % (auto) 0.0 (0.0-0.2) /100WBC D-Dimer High Sensitivty NG/ML Sodium 146 H (135-145) mmol/L Potassium 3.7 (3.3-5.1) mmol/L Chloride 109 H (96-108) mmol/L Carbon Dioxide 28 (22-29) mmol/L Anion Gap 13 (12-20) BUN 16 (9-16) mg/dL Creatinine 0.79 (0.5-1.4) mg/dL Estim Creat Clear Calc 89.0 Estimated GFR > 60 Random Glucose 85 (60-115) mg/dL Calcium 9.2 D (8.4-10.2) mg/dL Total Bilirubin 0.4 (0.0-1.0) mg/dL AST 14 (5-37) U/L ALT < 5 (0-40) U/L Alkaline Phosphatase 110 (39-117) U/L Troponin I High Sens < 2.7 (<3.5-35.0) ng/L B-Natriuretic Peptide (<100) pg/mL Total Protein 6.6 (6.5-8.0) g/dL Albumin 3.8 (3.5-5.0) g/dL 11/23/22 11/23/22 Range/Units 10:09 10:09 WBC (4.8-10.8) X10*3/uL RBC (4.60-5.80) X10*6/uL Hgb (14.0-18.0) g/dl Hct (42.0-52.0) % MCV (80.0-98.0) fL MCH (27.0-33.0) pg MCHC (31.0-36.0) g/dl RDW (11.0-16.0) % Plt Count (160-400) X10*3/uL MPV (9.4-12.4) fL Immature Gran % (Auto) (0.0-0.4) % Neut % (Auto) (45-73) % Lymph % (Auto) (20-40) % Wilcox % (Auto) (2-11) % Eos % (Auto) (0-4) % Baso % (Auto) (0-2) % Lymph # (Auto) (1.2-4.9) X10*3/uL Wilcox # (Auto) (0.1-1.2) X10*3/uL Eos # (Auto) (0.0-0.4) X10*3/uL Baso # (Auto) (0.0-0.2) X10*3/uL Abs Immat Gran (auto) (0.00-0.03) X10*3/uL Absolute Neuts (auto) (2.0-8.3) x10*3/uL Absolute Nucleated RBC (0.0-0.012) X10*3/uL Nucleated RBC % (auto) (0.0-0.2) /100WBC D-Dimer High Sensitivty 224 NG/ML Sodium (135-145) mmol/L Potassium (3.3-5.1) mmol/L Chloride (96-108) mmol/L Carbon Dioxide (22-29) mmol/L Anion Gap (12-20) BUN (9-16) mg/dL Creatinine (0.5-1.4) mg/dL Estim Creat Clear Calc Estimated GFR Random Glucose (60-115) mg/dL Calcium (8.4-10.2) mg/dL Total Bilirubin (0.0-1.0) mg/dL AST (5-37) U/L ALT (0-40) U/L Alkaline Phosphatase (39-117) U/L Troponin I High Sens (<3.5-35.0) ng/L B-Natriuretic Peptide 28 (<100) pg/mL Total Protein (6.5-8.0) g/dL Albumin (3.5-5.0) g/dL Independent Interpretation I performed an independent interpretation of an: EKG Interpretation: Normal sinus rhythm, right bundle branch block at baseline, HR-74, QTC is within normal limits, comparison to prior EKG without acute changes. Radiology Impression Discussion of test interpretation with radiology: I have reviewed the radiologist's reading. Radiologist Impression: Please see the discussion above External Record Review External record reviewed: Outpatient record and Prior outpatient labs Chronic Conditions Patient?s care impacted by: Hypertension Critical Care Time Critical Care Time Critical Care Time: Yes Total Critical Care Time: 45 Attestation: I personally attest to this time spent taking care of the patient. Discharge Plan Discharge Clinical Impression: Mild shortness of breath, Physical deconditioning Patient Disposition: Home, Self-Care Instructions: Fatigue (ED), Shortness of Breath (ED) Additional Instructions: 1. Resume all home medications as prescribed. 2. There were no acute findings on your entire workup today, I do feel that there may be a component deconditioning that is leading to your feeling of shortness of breath. 3. I recommend follow-up with your primary care provider next 1-2 days and discuss possible referral to physical therapy for strengthening. Return to the ER for any worsening symptoms. Prescriptions: No Action diltiazem HCl 240 mg capsule,extended release 24hr 240 mg PO DAILY Qty: 90 3RF oxycodone 5 mg tablet 5 mg PO Q4H MDD 5 PRN (Reason: pain) 30 Days Qty: 150 0RF Rx Instructions: Partial Fill upon patient request. amantadine HCl 100 mg tablet 1 tab PO TID ropinirole 3 mg tablet 6 mg PO DAILY@1200 trazodone 100 mg tablet 3 tab PO BEDTIME Patient Comments: Patient reports taking this nightly, and not as needed. Home med list updated to reflect actual use buspirone 10 mg tablet 1 tab PO BID PRN (Reason: Anxiety) cholecalciferol (vitamin D3) [Vitamin D3] 50 mcg (2,000 unit) Tablet 50 mcg PO DAILY lisinopril 20 mg tablet 20 mg PO DAILY pantoprazole 40 mg tablet,delayed release (DR/EC) 40 mg PO DAILY@0630 ondansetron HCl 4 mg tablet 4 mg PO DAILY PRN (Reason: Nausea) ropinirole 3 mg tablet 12 mg PO BEDTIME Rx Instructions: starting to reduce to stop levothyroxine 50 mcg tablet 50 mcg PO DAILY@0600 lidocaine 5 % adhesive patch,medicated 1 patch topical BID Rx Instructions: leave on most painful area for up to 12 hrs diclofenac sodium 1 % gel 2 g topical QID PRN (Reason: Inflammation) Rx Instructions: apply to single elbow, wrist or hand; for hand includes palm/fingers/back of hand carbidopa-levodopa 25-100 mg tablet 1 tab PO TID tamsulosin 0.4 mg capsule 0.4 mg PO BID finasteride 5 mg tablet 5 mg PO DAILY multivitamin [Daily Multi-Vitamin] Tablet 1 tab PO DAILY fluticasone propionate 50 mcg/actuation spray,suspension 1 spray intranasal BID Rx Instructions: administer into both nostrils duloxetine 60 mg capsule,delayed release(DR/EC) 60 mg PO DAILY pregabalin 300 mg capsule 300 mg PO BID memantine 10 mg tablet 10 mg PO BID donepezil 10 mg tablet 10 mg PO BEDTIME metronidazole 500 mg tablet 500 mg PO Q8H naloxone [Narcan] 4 mg/actuation spray,non-aerosol 4 mg intranasal Q2M PRN (Reason: opioid overdose) Qty: 2 0RF Rx Instructions: spray 1 dose into ONE nostril; alternate nostrils w each dose until help arrives baclofen 20 mg tablet 20 mg PO QID 30 Days Qty: 120 6RF Referrals: Enrrique Bryan MD [Primary Care Provider] -
[2022-11-23 10:13] LABS: MANUAL DIFF FLAG NO
[2022-11-23 10:19] LABS: Basophils Absolute Auto 0.1 X10*3/uL (0.0-0.2); Basophils Percent Auto 2.1 % (0-2); Eosinophils Absolute Auto 0.4 X10*3/uL (0.0-0.4); Eosinophils Percent Auto 5.3 % (0-4); Hematocrit 40.8 % (42.0-52.0); Hemoglobin 12.3 g/dl (14.0-18.0); Imm Gran Abs Auto 0.03 X10*3/uL (0.00-0.03); Imm Gran Pct Auto 0.4 % (0.0-0.4); Lymphocytes Absolute Auto 1.1 X10*3/uL (1.2-4.9); Mean Corpuscular HGB Conc 30.1 g/dl (31.0-36.0); Mean Corpuscular Hemoglobin 27.8 pg (27.0-33.0); Mean Corpuscular Volume 92.3 fL (80.0-98.0); Mean Platelet Volume 9.3 fL (9.4-12.4); Monocytes Absolute Auto 0.6 X10*3/uL (0.1-1.2); Monocytes Percent Auto 9.3 % (2-11); Neutrophils Absolute Auto 4.6 x10*3/uL (2.0-8.3); Neutrophils Percent Auto 66.9 % (45-73); Platelet Count 220 X10*3/uL (160-400); Red Blood Count 4.42 X10*6/uL (4.60-5.80); Red Cell Distribution Width 14.6 % (11.0-16.0); White Blood Count 6.8 X10*3/uL (4.8-10.8)
[2022-11-23 10:31] LABS: D Dimer High Sensitivity 224 NG/ML
[2022-11-23 10:40] LABS: Alanine Aminotransferase < 5 U/L (0-40); Albumin Level 3.8 g/dL (3.5-5.0); Alkaline Phosphatase 110 U/L (39-117); Anion Gap 13 (12-20); Aspartate Amino Transferase 14 U/L (5-37); Bilirubin Total 0.4 mg/dL (0.0-1.0); Blood Urea Nitrogen 16 mg/dL (9-16); Calcium 9.2 mg/dL (8.4-10.2); Carbon Dioxide 28 mmol/L (22-29); Chloride 109 mmol/L (96-108); Estimated Glomerular Filt Rate > 60; Glucose Random 85 mg/dL (60-115); Potassium 3.7 mmol/L (3.3-5.1); Sodium 146 mmol/L (135-145); Total Protein 6.6 g/dL (6.5-8.0)
[2022-11-23 10:41] LABS: B Type Natriuretic Peptide 28 pg/mL (<100)
[2022-11-23 10:45] LABS: Troponin-I High Sensitivity < 2.7 ng/L (<3.5-35.0)
[2022-11-23] MEDS: iohexoL 350 MG/ML 100 ML INFUS..BTL IV (11:27)
[2022-11-23 14:44] VITALS: BP 134/76; PULSE 65; RESP 12; O2SAT 98
== END 2022-11-23 15:00 | disposition home or self-care (01) ==
PROVIDERS: Emergency Provider Student in an Organized Health Care Education/Training Program; PCP Internal Medicine
DX: R06.02 Shortness of breath (principal); R07.89 Other chest pain; M79.10 Myalgia, unspecified site; Z87.891 Personal history of nicotine dependence; I10 Essential (primary) hypertension; Z79.899 Other long term (current) drug therapy
CPT/HCPCS: 36415; 71046; 71275; 80053; 83880; 84484; 85025; 85379; 93005; 99284; Q9967

== ENCOUNTER → 2022-11-23 09:08 | Outpatient (BNV) | payer MEDICARE, OTHER, SELFPAY | PROVIDERS: Emergency Provider Student in an Organized Health Care Education/Training Program; PCP Internal Medicine; Visit Provider Internal Medicine Cardiovascular Disease | DX: R94.31 Abnormal electrocardiogram [ECG] [EKG] (principal); I45.10 Unspecified right bundle-branch block | CPT/HCPCS: 93010 ==

== ENCOUNTER 2022-12-13 10:24 | Outpatient (AMB) | payer MEDICARE, OTHER, SELFPAY ==
--- NOTE | 2022-12-13 10:29 | A.OFFVIS_ITS ---
Intake Vital Signs 12/13/22 10:39 Height 5 ft 7 in Weight 198 lb BMI 31.0 BP 144/85 H Blood Pressure Location Rt brachial Position Sitting Respiration 16 Pulse 77 Pulse Source Pulse Oximeter Pulse Oximetry (%) 97 Oxygen Delivery Method Room Air Intake Visit Reasons: Pill count Intake Note: patient comes in for pill count to oxycodone. Allergies Sulfa (Sulfonamide Antibiotics) Allergy (Severe, Verified 12/13/22 10:40) HIVES/DIFF.BREATHING vancomycin [VANCOMYCIN] Allergy (Severe, Verified 12/13/22 10:40) SHORTNESS OF BREATH cephalexin [CEPHALEXIN] Allergy (Intermediate, Verified 12/13/22 10:40) SHORTNESS OF BREATH HPI HPI Comments History of Present Illness Details Kevan presents today for a pill count. He is accompanied by his jeane machado arrived via walker. He looks better today his Parkinson tremors are not as bad as they were before. He reports short term memory loss, he is in speech therapy. He reports adequate pain control on opioid medications. We discussed why I am reluctant to escalate his opioids. Recently he was suspended from our opioid program secondary to random UDS which discovered tapentadol in his urine. Later on the diagnostic facility run the same simple of urine and discovered no tapentadol or it is metabolites in his urine. He was reinstated in our opioid program. Patient is reporting pain exacerbation. He reports that the opioid medications in the amount of 5 pills of oxycodone a day 5 mg each is not enough for him to tolerate his pain better. He reports he takes Aleve and ibuprofen in between the doses of the opioid medications. He continues baclofen. He reports that his laparotomy heels but he has tiny little opening on his abdomen which continues to produce biliary fluid. Possibility of development of the fistula exists. Pill count today: He presents himself with 61 pills with his possession. He should have 60 pills in his possession. Therefore his pill count is correct. I will schedule him for another refill of the medication on 10/26/2022. Prior: Patient underwent laparotomy, Milla's procedure and washout for intraabdominal interloop abscesses on 05/18/22 and was brought back to OR on 05/29/22 for repair of fascial dehiscence with retention sutures. Patient reports he had follow up visit with Dr. Mcneill for wound check today and is starting for oral antibiotic for 10 days for redness and tenderness around his incision lines.. He receives VNA services for wound care and home physical therapy. Mr. Rivas is very pleasant 71 years old gentleman who is in my office today complaining on very severe pain in the neck with radiation into the back of the head in the down into the thoracic and lumbar spine. He also complains on severe pain in bilateral shoulders. He is suffering from Parkinson disease. He is taking opioid medications for his pain. He is also suffering from postlaminectomy syndrome and he recently had very wide extend the fusion of C2 through C7 cervical vertebra as. He states that his life expenditure going to be shorter that regular [place] life expenditure. He reports his pain is very severe in the range of 9/10 of the time. He reports that opioid medications help him moderately to alleviate this pain. He used to take 5 mg of oxycodone 4 times a day. It was recent sick increase from 3 times a day to 4 times a day. I discussion was held today about opioid induced hyperalgesia and opioid induced tolerance. I warned him that his life expectancy is also will be shortened by administration of the opioid medication especially if we keep increasing his doses. I think he is quite miserable currently on a in his condition. I will attempt to increase his dose of opioid medications to 25 mg of oxycodone a day making it 5 mg 5 times a day. Unfortunately he is not a candidate for any spinal cord stimulator because his posterior epidural space is completely obliterated. It is unclear whether not he will be a good candidate for pain pump. [facility] Medical History Abdominal wound dehiscence Bilateral primary osteoarthritis of knee BPH (benign prostatic hyperplasia) Chronic pain syndrome Failed back syndrome of cervical spine GERD (gastroesophageal reflux disease) Hard of hearing History of diverticulitis HTN (hypertension) Hypertensive heart disease Hypothyroidism Neck pain PAC (premature atrial contraction) Parkinsons Restless leg syndrome Upper back pain, chronic Wound dehiscence Surgical History H/O exploratory laparotomy (05/18/22) H/O neck surgery History of colostomy reversal History of foot surgery History of surgery (05/29/22) History of surgery (09/06/22) History of total left knee replacement (TKR) Hx laparoscopic cholecystectomy Hx of colonoscopy Hx of fusion of cervical spine Hx of hernia repair Social History Household Members: Spouse Household Members Other:: 1 Housing: House Are you a primary vocational childcare teacher to a significant other at home: No Do you presently have visiting nurse or other home services: Yes (PT) Alcohol intake: current Alcohol intake frequency: holidays/special occasions only Patient Tobacco Use Status: Former Tobacco user Quit Date: >30 yrs ago Tobacco use type: Cigarette e-Cigarette/Vaping Use: Former Use Second Hand Smoke Exposure: No Substance Use Type: Marijuana and Prescription Drugs Advance Directives Date on File: 01/19/20 service: No Current occupational status: retired Review of Systems Const All systems reviewed & are unremarkable except as noted in HPI and below Physical Exam Vital Signs: Last Vital Signs Pulse 77 12/13/22 10:39 Resp 16 12/13/22 10:39 BP 144/85 H 12/13/22 10:39 Pulse Ox 97 12/13/22 10:39 Oxygen Delivery Method Room Air 12/13/22 10:39 BMI result Body Mass Index 31.0 Assessment & Plan Assessment & Plan (1) Bilateral primary osteoarthritis of knee: Code(s): M17.0 - Bilateral primary osteoarthritis of knee (2) Chronic pain syndrome: Code(s): G89.4 - Chronic pain syndrome (3) Failed back syndrome of cervical spine: Code(s): M96.1 - Postlaminectomy syndrome, not elsewhere classified (4) Opioid contract exists: Code(s): 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 There is no evidence of misuse, abuse or diversion at this time. [employer] reviewed. The prescription for oxycodone will be sent on 12/25/2022 The he was suspended on erroneous UDS. I will continue current opioid doses. The patient reports short-term memory loss. Although he tremor looks better thinks his mental status will start to decline from now on. Medications: Refilled oxycodone Partial Fill upon patient request. 5 mg PO Q4H PRN 150 tabs 0RF pain 30 days MDD 5 G20 - Parkinson's disease, G89.4 - Chronic pain syndrome, M17.0 - Bilateral primary osteoarthritis of knee, M96.1 - Postlaminectomy syndrome, not elsewhere classified Discontinued tizanidine 4 mg PO BID 30 days PRN 60 tabs 3RF muscle spasticity G89.4 - Chronic pain syndrome Coding Level of Care Code Est Pt Level 4 (80088) Diagnoses Bilateral primary osteoarthritis of knee M17.0 Chronic pain syndrome G89.4 Failed back syndrome of cervical spine M96.1 Opioid contract exists Z79.891
[2022-12-13 10:39] VITALS: BP 144/85; PULSE 77; RESP 16; O2SAT 97; BMI 31.0
== END 2022-12-13 11:02 | disposition home or self-care (01) ==
PROVIDERS: PCP Internal Medicine; Visit Provider Anesthesiology
DX: M17.0 Bilateral primary osteoarthritis of knee (principal); G89.4 Chronic pain syndrome; M96.1 Postlaminectomy syndrome, not elsewhere classified; Z79.891 Long term (current) use of opiate analgesic
CPT/HCPCS: 99214

== ENCOUNTER → 2022-12-13 10:24 | Outpatient (BNVA) | payer MEDICARE, OTHER, SELFPAY | PROVIDERS: PCP Internal Medicine; Visit Provider Anesthesiology | DX: G89.4 Chronic pain syndrome (principal); M96.1 Postlaminectomy syndrome, not elsewhere classified; M17.0 Bilateral primary osteoarthritis of knee; Z79.891 Long term (current) use of opiate analgesic | CPT/HCPCS: 99212 ==

== ENCOUNTER 2022-12-15 13:35 | Outpatient (AMB) | payer MEDICARE, OTHER, SELFPAY ==
[2022-12-15 13:39] VITALS: BMI 31.0
--- NOTE | 2022-12-15 13:39 | MHC.OFFVIS ---
Intake Vital Signs 12/15/22 13:39 Height 5 ft 7 in Weight 198 lb BMI 31.0 Intake Visit Reasons: ov-Lt Clavicle fx DOI 03/04/22 Intake Note: Kevan is a 72 year old right hand dominant male who presents today for a follow up of left clavicle fracture, DOI 03/04/2022. Patient reports he continues to have pain and discomfort that seems to be getting worse. States difficulty with sleeping. He would like to discuss a cortisone injection. Allergies Sulfa (Sulfonamide Antibiotics) Allergy (Severe, Verified 12/15/22 13:46) HIVES/DIFF.BREATHING vancomycin [VANCOMYCIN] Allergy (Severe, Verified 12/15/22 13:46) SHORTNESS OF BREATH cephalexin [CEPHALEXIN] Allergy (Intermediate, Verified 12/15/22 13:46) SHORTNESS OF BREATH HPI ov-Lt Clavicle fx DOI 03/04/22 HPI Details 72-year-old right hand dominant male who returns to the office today for a follow-up of left clavicle fracture, 03/04/22. He continues to have worsening pain and discomfort in his clavicle which is aggravated with sleeping. He had undergone physical therapy in the past. He would like to discuss about a cortisone injection. [facility] Medical History Abdominal wound dehiscence Bilateral primary osteoarthritis of knee BPH (benign prostatic hyperplasia) Chronic pain syndrome Failed back syndrome of cervical spine GERD (gastroesophageal reflux disease) Hard of hearing History of diverticulitis HTN (hypertension) Hypertensive heart disease Hypothyroidism Neck pain PAC (premature atrial contraction) Parkinsons Restless leg syndrome Upper back pain, chronic Wound dehiscence Surgical History H/O exploratory laparotomy (05/18/22) H/O neck surgery History of colostomy reversal History of foot surgery History of surgery (05/29/22) History of surgery (09/06/22) History of total left knee replacement (TKR) Hx laparoscopic cholecystectomy Hx of colonoscopy Hx of fusion of cervical spine Hx of hernia repair Social History Household Members: Spouse Household Members Other:: 1 Housing: House Are you a primary healthcare network consultant to a significant other at home: No Do you presently have visiting nurse or other home services: Yes (PT) Alcohol intake: current Alcohol intake frequency: holidays/special occasions only Patient Tobacco Use Status: Former Tobacco user Quit Date: >30 yrs ago Tobacco use type: Cigarette e-Cigarette/Vaping Use: Former Use Second Hand Smoke Exposure: No Substance Use Type: Marijuana and Prescription Drugs Advance Directives Date on File: 01/19/20 service: No Current occupational status: retired Review of Systems Const All systems reviewed & are unremarkable except as noted in HPI and below Physical Exam Vital Signs: BMI result Body Mass Index 31.0 Const General: cooperative, healthy appearing, comfortable, no acute distress, well developed and alert Orientation/consciousness: patient oriented x3 HEENT Head: Yes normal to inspection, Yes normocephalic and Yes atraumatic Eyes General: appearance normal, both eyes and all related structures Resp Effort & Inspection: normal respiratory effort and able to speak in complete sentences Cardio Rate: regular rate Peripheral pulses: Peripheral pulses 2+ throughout GI Palpation (GI): Soft to palpation Skin Lesions: no lesions Rashes: no rashes Neuro General: patient oriented x3 Extrem Other: Left clavicle: Slightly more prominent compared to the contralateral side. There is no tenderness to palpation over the fracture site. Skin is intact, no redness, no skin tenting or breakdown. No pain with ROM of shoulder. He does have pain with brown and tenderness along the parascapular region. NVI. Office Procedures Joint Injection/Drain Joint Injection/Drain Primary Site: left shoulder Prep: site was prepped using aseptic technique, ethochloride spray was applied and injection warnings given Injected: 80 mg of, DepoMedrol, with 8 mL of, 1% plain lidocaine and in the subcromial space Approach Used: posterolateral Procedure: The patient tolerated the procedure well and there was some relief with the local anesthesia Coding 59781 - Glenohumeral/Tronchanteric Bursa/Intraarticular Procedure code (CPT) selection complete Results Reviewed Results Reviewed: 12/15/22 13:53 Lidocaine HCl 2 % MPF [Xylocaine 2 % MPF] 5 ml .ROUTE .STK-MED ONE methylPREDNISolone acetate [DEPO-MedroL] 80 mg .ROUTE .STK-MED ONE X-rays of the left shoulder obtained in the office today show distal clavicle fracture with superior displacement, unchanged from previous exam. Assessment & Plan Assessment & Plan (1) Closed fracture of distal clavicle: Code(s): S42.033A - Displaced fracture of lateral end of unspecified clavicle, initial encounter for closed fracture Plan We discussed options which include formal physical therapy and steroid injection in the left shoulder. I will printout a handout of home exercises program for him to work on periscapular stabilization. Left shoulder injection performed today which he tolerated well. If symptoms persist or worsens, patient will contact the office, otherwise follow-up as needed. Orders: Orders XR clavicle LT Today M89.8X1 - Other specified disorders of bone, shoulder Medications: Discontinued tizanidine 4 mg PO BID 30 days PRN 60 tabs 3RF muscle spasticity G89.4 - Chronic pain syndrome Patient Instructions: Scribed for Elma Pollock PA-C, by Noha Fay medical billing instructor, on 12/15/2022 at 1:45 PM EST. I, Elma Pollock PA-C, have personally reviewed and agree with the information entered by the scribe. Coding Level of Care Code Est Pt Level 3 (10013) Diagnoses Closed fracture of distal clavicle S42.033A CPT Codes Coding - Joint 7: 04437 - Glenohumeral/Tronchanteric Bursa/Intraarticular ([id number])
== END 2022-12-15 14:05 | disposition home or self-care (01) ==
PROVIDERS: PCP Internal Medicine; Visit Provider Physician Assistant
DX: S42.032A Displaced fracture of lateral end of left clavicle, initial encounter for closed fracture (principal)
CPT/HCPCS: 20610; 99213

== ENCOUNTER 2022-12-15 13:50 | Outpatient (REF) | payer MEDICARE, OTHER, SELFPAY ==
--- NOTE | ~2022-12-15 | XR_ITS ---
EXAMINATION: XR CLAVICLE, LEFT CLINICAL INFORMATION: Other specified disorder of bone, shoulder COMPARISON: Previous chest x-ray most recent September 2022 TECHNIQUE: Two views of the left clavicle. FINDINGS: Ununited displaced left distal clavicle fracture appears unchanged. There is arthritis at the acromioclavicular and glenohumeral joints. Soft tissues are unremarkable. There is hardware seen in the lower cervical and proximal thoracic spine. XR/XR clavicle LT IMPRESSION: Unchanged left distal clavicle fracture. Arthritis at the acromioclavicular and glenohumeral joints.
== END 2022-12-15 13:51 | disposition home or self-care (01) ==
LOC: HO.HOSX 13:50
PROVIDERS: Visit Provider Physician Assistant
DX: M89.8X1 Other specified disorders of bone, shoulder (principal); S42.032A Displaced fracture of lateral end of left clavicle, initial encounter for closed fracture
CPT/HCPCS: 20610; 73000; 99212; J1040

== ENCOUNTER 2023-01-03 09:56 | Outpatient (REF) | payer SELFPAY ==
--- NOTE | 2023-01-03 13:23 | MHC.AU.HA3 ---
Hearing Instrument Follow-Up- Binaural Date of Visit: 01/03/23 Right Ear: Model Gurvinder, Color, Serial Number: Dee Seymour [id number] SN: [id number] Color: Silver Mayen Sweep Press Operator Repair Warranty: 02/01/2023 Sweep Press Operator Loss and Damage Warranty: 02/01/2023 [facility] Service Plan: 02/01/2023 Battery Size: 13 Upholstery Sewer/Slim Tube: 2M Earmold/Dome/CShell/SlimTip:Large power dome with retention tail Type of Wax Guard: CeruShield Dispensed By: [facility] Date of Fittin11/24/2019 Left Ear: Model Gurvinder, Color, Serial Number: Dee Seymour [id number] SN: [id number] Color: Silver Mayen Sweep Press Operator Repair Warranty: 02/01/2023 Sweep Press Operator Loss and Damage Warranty: 02/01/2023 [facility] Service Plan: 02/01/2023 Battery Size: 13 Upholstery Sewer/Slim Tube: 2M Earmold/Dome/CShell/SlimTip: Large power dome with retention tail Type of Wax Guard: CeruShield Dispensed By: [facility] Date of Fittin11/24/2019 Follow-Up Summary: Kevan requested that his hearing aids be sent out for a clean and check prior to his warranty expiring next month. Programmed loaners. [facility] Discussed end of warranty on 02/01/2023 and future visits after that date will incur a fee. Recommendations: Patient will be contacted when materials have arrived. Diagnosis Code(s): Primary Diagnosis: H90.3 Bilateral Sensorineural Hearing Loss Signature: Provider: Sheryl Pineda, [facility]
== END 2023-01-03 09:57 | disposition home or self-care (01) ==
LOC: HO.HAP 09:56
PROVIDERS: Visit Provider Internal Medicine
DX: Z13.89 Encounter for screening for other disorder (principal)

== ENCOUNTER → 2023-01-10 10:24 | Outpatient (BNVA) | payer MEDICARE, OTHER, SELFPAY | PROVIDERS: PCP Internal Medicine; Visit Provider Anesthesiology | DX: Z79.891 Long term (current) use of opiate analgesic (principal) | CPT/HCPCS: 99211 ==

== ENCOUNTER 2023-01-11 13:08 | Outpatient (AMB) | payer MEDICARE, OTHER, SELFPAY ==
--- NOTE | 2023-01-11 13:20 | A.OFFVIS_ITS ---
Intake Vital Signs 01/11/23 13:21 Height 5 ft 7 in Weight 197 lb 15.602 oz BMI 31.0 Pulse 68 Intake Visit Reasons: wound check, abdominal wounds (1 area non-healing) Intake Note: Patient is seen in office for wound check, following abdominal wounds. Patient c/o: admits to open wound, oozing yellowish on Sunday had bloody discharge Pediatrics Physician Required: No Accompanied by: Spouse Allergies Sulfa (Sulfonamide Antibiotics) Allergy (Severe, Verified 01/11/23 13:25) HIVES/DIFF.BREATHING vancomycin [VANCOMYCIN] Allergy (Severe, Verified 01/11/23 13:25) SHORTNESS OF BREATH cephalexin [CEPHALEXIN] Allergy (Intermediate, Verified 01/11/23 13:25) SHORTNESS OF BREATH Medication List - Last Reconciled 01/11/23 by Aric Mcneill MD amantadine HCl 1 tab PO TID baclofen 20 mg PO QID 30 days buspirone 1 tab PO BID PRN carbidopa-levodopa 25-100 mg 1 tab PO TID cholecalciferol (vitamin D3) (Vitamin D3) 50 mcg PO DAILY diazepam 2.5 mg PO BID-TID PRN diclofenac sodium 1% 2 grams topical QID PRN diltiazem HCl 240 mg PO DAILY donepezil 10 mg PO BEDTIME doxycycline hyclate 100 mg PO BID duloxetine 60 mg PO DAILY finasteride 5 mg PO DAILY fluticasone propionate 50 mcg/actuation 1 spray intranasal BID levothyroxine 50 mcg PO DAILY@0600 lidocaine 5% 1 patch topical BID lisinopril 20 mg PO DAILY memantine 10 mg PO BID metronidazole 500 mg PO Q8H multivitamin (Daily Multi-Vitamin tablet) 1 tab PO DAILY naloxone 4 mg/actuation (Narcan) 4 mg intranasal Q2M PRN ondansetron HCl 4 mg PO DAILY PRN oxycodone 5 mg PO Q4H PRN 30 days MDD 5 pantoprazole 40 mg PO DAILY@0630 pregabalin 300 mg PO BID ropinirole 6 mg PO DAILY@1200 ropinirole 12 mg PO BEDTIME tamsulosin 0.4 mg PO BID trazodone 3 tabs PO BEDTIME HPI HPI Comments History of Present Illness Details Mr. Rivas returns to the office for evaluation of persistent drainage from his abdominal incision. The upper portion has occasionally healed but then opens up again with production of purulence discharge. The lower 2 wounds have never completely healed in the 4 months since surgery. He denies fever or chills. He has been eating well and denies any nausea or vomiting. [facility] Medical History Abdominal wound dehiscence Wound dehiscence History of diverticulitis Upper back pain, chronic Neck pain HTN (hypertension) Hypertensive heart disease PAC (premature atrial contraction) BPH (benign prostatic hyperplasia) Hypothyroidism Hard of hearing GERD (gastroesophageal reflux disease) Restless leg syndrome Parkinsons Bilateral primary osteoarthritis of knee Chronic pain syndrome Failed back syndrome of cervical spine Surgical History History of surgery (09/06/22) History of colostomy reversal History of foot surgery Hx of hernia repair Hx laparoscopic cholecystectomy Hx of colonoscopy H/O neck surgery Hx of fusion of cervical spine History of total left knee replacement (TKR) History of surgery (05/29/22) H/O exploratory laparotomy (05/18/22) Social History Household Members: Spouse Household Members Other:: 1 Housing: House Are you a primary personal carer to a significant other at home: No Do you presently have visiting nurse or other home services: Yes (PT) Alcohol intake: current Alcohol intake frequency: holidays/special occasions only Patient Tobacco Use Status: Former Tobacco user Quit Date: >30 yrs ago Tobacco use type: Cigarette e-Cigarette/Vaping Use: Former Use Second Hand Smoke Exposure: No Substance Use Type: Marijuana and Prescription Drugs Advance Directives Date on File: 01/19/20 service: No Current occupational status: retired Physical Exam Vital Signs: Last Vital Signs Pulse 68 01/11/23 13:21 BMI result Body Mass Index 31.0 Const General: comfortable and no acute distress Nutritional Appearance: well nourished Orientation/consciousness: patient oriented x3 Resp Effort & Inspection: normal respiratory effort GI Other: Lower midline incision with 3 open areas dispersed through the incision. Each measures approximately 1 cm in diameter. Gentle probing of the wound did produce a small amount of greenish suture material suggestive of a absorbable suture (PDS). Findings are suggestive of an underlying stitch abscess. Wounds were cauterized with silver nitrate and covered with dry sterile dressings. Neuro General: patient oriented x3 Extrem General: Yes normal to inspection Assessment & Plan Assessment & Plan (1) Diverticulitis: Code(s): K57.92 - Diverticulitis of intestine, part unspecified, without perforation or abscess without bleeding Plan Patient presents with probable foreign body reaction from the underlying suture. Wounds were cauterized with silver nitrate today and covered with dry sterile dressings. I have asked him to return approximately 2 weeks for follow-up examination. I will start him on antibiotics for the next 10 days. If there is no improvement after 2 weeks I will offer him the option of wound exploration in the OR with possible removal of residual suture material. Medications: New doxycycline hyclate 100 mg PO BID 20 tabs 0RF K57.92 - Diverticulitis of intestine, part unspecified, without perforation or abscess without bleeding Coding Level of Care Code Est Pt Level 3 (24987) Diagnoses Diverticulitis K57.92
[2023-01-11 13:21] VITALS: PULSE 68; BMI 31.0
== END 2023-01-11 13:32 | disposition home or self-care (01) ==
PROVIDERS: PCP Internal Medicine; Visit Provider Surgery
DX: K57.92 Diverticulitis of intestine, part unspecified, without perforation or abscess without bleeding (principal)
CPT/HCPCS: 17250; 99213

== ENCOUNTER → 2023-01-11 13:08 | Outpatient (BNVA) | payer MEDICARE, OTHER, SELFPAY | PROVIDERS: PCP Internal Medicine; Visit Provider Surgery | DX: Z48.815 Encounter for surgical aftercare following surgery on the digestive system (principal) | CPT/HCPCS: 17250; 99212 ==

== ENCOUNTER 2023-01-17 08:41 | Outpatient (REF) | payer SELFPAY | END 2023-01-17 08:42 | disposition home or self-care (01) | LOC: HO.HAP 08:41 | PROVIDERS: Visit Provider Internal Medicine | DX: Z13.89 Encounter for screening for other disorder (principal) ==

== ENCOUNTER 2023-01-25 13:26 | Outpatient (AMB) | payer MEDICARE, OTHER, SELFPAY ==
--- NOTE | 2023-01-25 13:35 | MHC.OFFVIS ---
Intake Vital Signs 01/25/23 13:35 Height 5 ft 7 in Intake Visit Reasons: wound check, abdominal wounds (1 area non-healing) Intake Note: This patient of presents for an assessment for wound check for abdominal wound (1 area non-healing). Patient's spouse c/o; reports greenish drainage, reports non-healing abdominal wounds. Insurance Account Representative Required: No Accompanied by: Spouse Allergies Sulfa (Sulfonamide Antibiotics) Allergy (Severe, Verified 01/25/23 13:49) HIVES/DIFF.BREATHING vancomycin [VANCOMYCIN] Allergy (Severe, Verified 01/25/23 13:49) SHORTNESS OF BREATH cephalexin [CEPHALEXIN] Allergy (Intermediate, Verified 01/25/23 13:49) SHORTNESS OF BREATH Medication List - Last Reconciled 01/25/23 by Enrrique Borja MD amantadine HCl 1 tab PO TID baclofen 20 mg PO QID 30 days buspirone 1 tab PO BID PRN carbidopa-levodopa 25-100 mg 1 tab PO TID cholecalciferol (vitamin D3) (Vitamin D3) 50 mcg PO DAILY diazepam 2.5 mg PO BID-TID PRN diclofenac sodium 1% 2 grams topical QID PRN diltiazem HCl 240 mg PO DAILY donepezil 10 mg PO BEDTIME doxycycline hyclate 100 mg PO BID duloxetine 60 mg PO DAILY finasteride 5 mg PO DAILY fluticasone propionate 50 mcg/actuation 1 spray intranasal BID levothyroxine 50 mcg PO DAILY@0600 lidocaine 5% 1 patch topical BID lisinopril 20 mg PO DAILY memantine 10 mg PO BID metronidazole 500 mg PO Q8H multivitamin (Daily Multi-Vitamin tablet) 1 tab PO DAILY naloxone 4 mg/actuation (Narcan) 4 mg intranasal Q2M PRN ondansetron HCl 4 mg PO DAILY PRN oxycodone 5 mg PO Q4H PRN 30 days MDD 5 pantoprazole 40 mg PO DAILY@0630 pregabalin 300 mg PO BID ropinirole 6 mg PO DAILY@1200 ropinirole 12 mg PO BEDTIME tamsulosin 0.4 mg PO BID trazodone 3 tabs PO BEDTIME HPI wound check, abdominal wounds (1 area non-healing) HPI Details He has a history of open wound all incisions after wound dehiscence after closure of a colostomy last Aug, 2022. He has been following Dr. Mcneill for this. He was last seen by Dr. Mcneill 2 weeks ago. The small open wounds were cauterized using silver nitrate sticks. He denies any GI complaints. He has good oral intake. He denies any significant abdominal pain. His says that there are 3 areas along his laparotomy incision that seemed to have some scanty drainage. [facility] Medical History (Updated 01/25/23 @ 14:06 by Enrrique Borja MD) Open wound anterior abdominal wall Abdominal wound dehiscence Wound dehiscence History of diverticulitis Upper back pain, chronic Neck pain HTN (hypertension) Hypertensive heart disease PAC (premature atrial contraction) BPH (benign prostatic hyperplasia) Hypothyroidism Hard of hearing GERD (gastroesophageal reflux disease) Restless leg syndrome Parkinsons Bilateral primary osteoarthritis of knee Chronic pain syndrome Failed back syndrome of cervical spine Surgical History History of surgery (09/06/22) History of colostomy reversal History of foot surgery Hx of hernia repair Hx laparoscopic cholecystectomy Hx of colonoscopy H/O neck surgery Hx of fusion of cervical spine History of total left knee replacement (TKR) History of surgery (05/29/22) H/O exploratory laparotomy (05/18/22) Social History Household Members: Spouse Household Members Other:: 1 Housing: House Are you a primary senior caregiver to a significant other at home: No Do you presently have visiting nurse or other home services: Yes (PT) Alcohol intake: current Alcohol intake frequency: holidays/special occasions only Patient Tobacco Use Status: Former Tobacco user Quit Date: >30 yrs ago Tobacco use type: Cigarette e-Cigarette/Vaping Use: Former Use Second Hand Smoke Exposure: No Substance Use Type: Marijuana and Prescription Drugs Advance Directives Date on File: 01/19/20 service: No Current occupational status: retired Review of Systems Const Denies chills and Denies fever(s) Card Denies chest pain and Reports dyspnea on exertion Resp Denies cough and Reports dyspnea on exertion GI Denies abdominal pain and Denies vomiting Denies urinary frequency Physical Exam Const Other: Using a wheelchair but able to stand up with assistance General: comfortable and no acute distress Resp Effort & Inspection: normal respiratory effort Cardio Rate: regular rate GI Other: Long laparotomy incision is well healed but there are 3 small areas about 4 mm in diameter with some scanty drainage Palpation (GI): Soft to palpation, not firm and nontender Assessment & Plan Assessment & Plan (1) Open wound anterior abdominal wall: Code(s): S31.109A - Unspecified open wound of abdominal wall, unspecified quadrant without penetration into peritoneal cavity, initial encounter Plan: He has 3 open wounds on the long laparotomy incisions and these have very scanty drainage. I probed all 3 wounds and these appear to be blind. There is no significant collection within this wound. No accumulation of pus was noted. He seems to be some hypergranulation tissue that suggests suture granuloma. I had advised him on good wound care with frequent dressing changes using BandAids. The drainage appeared to be very scanty based on his old dressings. I have advised him to follow-up with Dr. Mcneill next month as well as he had contemplated on wound exploration for the suture granuloma. They are comfortable with the plan. Coding Level of Care Code Est Pt Level 3 (39578) Diagnoses Open wound anterior abdominal wall S31.109A
== END 2023-01-25 14:00 | disposition home or self-care (01) ==
PROVIDERS: PCP Internal Medicine; Visit Provider Surgery
DX: S31.109A Unspecified open wound of abdominal wall, unspecified quadrant without penetration into peritoneal cavity, initial encounter (principal)
CPT/HCPCS: 99213

== ENCOUNTER → 2023-01-25 13:26 | Outpatient (BNVA) | payer MEDICARE, OTHER, SELFPAY | PROVIDERS: PCP Internal Medicine; Visit Provider Surgery | DX: T81.31XA Disruption of external operation (surgical) wound, not elsewhere classified, initial encounter (principal) | CPT/HCPCS: 99212 ==

== ENCOUNTER 2023-02-07 10:54 | Outpatient (AMB) | payer MEDICARE, OTHER, SELFPAY ==
--- NOTE | 2023-02-07 10:55 | A.OFFVIS_ITS ---
Intake Vital Signs 02/07/23 11:07 Height 5 ft 7 in Weight 197 lb BMI 30.9 BP 132/86 Blood Pressure Location Rt brachial Position Sitting Respiration 16 Pulse 74 Pulse Source Pulse Oximeter Pulse Oximetry (%) 96 Oxygen Delivery Method Room Air Intake Visit Reasons: Medication Count Allergies Sulfa (Sulfonamide Antibiotics) Allergy (Severe, Verified 02/07/23 11:07) HIVES/DIFF.BREATHING vancomycin [VANCOMYCIN] Allergy (Severe, Verified 02/07/23 11:07) SHORTNESS OF BREATH cephalexin [CEPHALEXIN] Allergy (Intermediate, Verified 02/07/23 11:07) SHORTNESS OF BREATH HPI HPI Comments History of Present Illness Details Kevan presents today for a pill count. He is accompanied by his and arrived via walker. He looks better today his Parkinson tremors are not as bad as they were before. He reports short term memory loss, he is in speech therapy. He reports adequate pain control on opioid medications. He is doing so much better today compared to his previous visits History of tapentadol in UDS which was deemed to be a laboratory error. Reinstated in the program Patient underwent laparotomy, Milla's procedure and washout for intraabdominal interloop abscesses on 05/18/22 and was brought back to OR on 05/29/22 for repair of fascial dehiscence with retention sutures. He reports that his laparotomy heels but he has tiny little opening on his abdomen which continues to produce biliary fluid. He is under care of Dr. Mcneill. Pill count today: He presents himself with 83 pills with his possession. He should have 18 pills in his possession. Therefore his pill count is correct. I will schedule him for another refill of the medication on 02/23/2023 Prior: Mr. Rivas is very pleasant 71 years old gentleman who is in my office today complaining on very severe pain in the neck with radiation into the back of the head in the down into the thoracic and lumbar spine. He also complains on severe pain in bilateral shoulders. He is suffering from Parkinson disease. He is taking opioid medications for his pain. He is also suffering from postlaminectomy syndrome and he recently had very wide extend the fusion of C2 through C7 cervical vertebra as. He states that his life expenditure going to be shorter that regular [place] life expenditure. He reports his pain is very severe in the range of 9/10 of the time. He reports that opioid medications help him moderately to alleviate this pain. He used to take 5 mg of oxycodone 4 times a day. It was recent sick increase from 3 times a day to 4 times a day. I discussion was held today about opioid induced hyperalgesia and opioid induced tolerance. I warned him that his life expectancy is also will be shortened by administration of the opioid medication especially if we keep increasing his doses. I think he is quite miserable currently on a in his condition. I will attempt to increase his dose of opioid medications to 25 mg of oxycodone a day making it 5 mg 5 times a day. Unfortunately he is not a ca ndidate for any spinal cord stimulator because his posterior epidural space is completely obliterated. It is unclear whether not he will be a good candidate for pain pump. [facility] Medical History (Updated 01/25/23 @ 14:06 by Enrrique Borja MD) Open wound anterior abdominal wall Abdominal wound dehiscence Wound dehiscence History of diverticulitis Upper back pain, chronic Neck pain HTN (hypertension) Hypertensive heart disease PAC (premature atrial contraction) BPH (benign prostatic hyperplasia) Hypothyroidism Hard of hearing GERD (gastroesophageal reflux disease) Restless leg syndrome Parkinsons Bilateral primary osteoarthritis of knee Chronic pain syndrome Failed back syndrome of cervical spine Surgical History History of surgery (09/06/22) History of colostomy reversal History of foot surgery Hx of hernia repair Hx laparoscopic cholecystectomy Hx of colonoscopy H/O neck surgery Hx of fusion of cervical spine History of total left knee replacement (TKR) History of surgery (05/29/22) H/O exploratory laparotomy (05/18/22) Social History Household Members: Spouse Household Members Other:: 1 Housing: House Are you a primary rn homecare to a significant other at home: No Do you presently have visiting nurse or other home services: Yes (PT) Alcohol intake: current Alcohol intake frequency: holidays/special occasions only Patient Tobacco Use Status: Former Tobacco user Quit Date: >30 yrs ago Tobacco use type: Cigarette e-Cigarette/Vaping Use: Former Use Second Hand Smoke Exposure: No Substance Use Type: Marijuana and Prescription Drugs Advance Directives Date on File: 01/19/20 service: No Current occupational status: retired Review of Systems Const All systems reviewed & are unremarkable except as noted in HPI and below ENT Reports Normal hearing present Neuro Reports Normal hearing present, Denies Abnormal speech present and Denies confusion Psych Denies confusion Physical Exam Vital Signs: Last Vital Signs Pulse 74 02/07/23 11:07 Resp 16 02/07/23 11:07 BP 132/86 02/07/23 11:07 Pulse Ox 96 02/07/23 11:07 Oxygen Delivery Method Room Air 02/07/23 11:07 BMI result Body Mass Index 30.9 Const General: cooperative, healthy appearing, no acute distress, alert and well groomed; No confusion Nutritional Appearance: well nourished and obese Orientation/consciousness: patient oriented x3 and No confusion Limitations: wheelchair HEENT Head: Yes normal to inspection, Yes normocephalic and Yes atraumatic Ears: hearing grossly normal bilaterally General nose exam: No nasal discharge present Face and sinus: Yes normal facial exam and Yes face symmetric Eyes General: appearance normal, both eyes and all related structures Visual Atwood: normal visual atwood by confrontation Eyelids: Yes eyelids normal Pupils: Equal, round and reactive pupils present EOM: EOMs intact bilaterally Neck Neck: Yes normal visual inspection, Yes no lymphadenopathy, No anterior neck swelling and Yes no JVD Resp Effort & Inspection: normal respiratory effort, able to speak in complete sentences and no audible wheezes Cardio Jugular venous distension: no JVD Bruits: no carotid bruits Peripheral pulses: Peripheral pulses 2+ throughout GI Inspection: Yes normal to inspection and No distended Palpation (GI): Soft to palpation and no guarding Back/Spine/Pelvis Cervical Spine: cervical muscular tenderness, pain with cervical ROM and No Cervical spine tenderness Thoracic/Lumbar Spine: thoracic and lumbar spine normal to inspection, thoraco- lumbar ROM limited, No thoracic spinal tenderness and No lumbar spinal tendern ess Neuro General: patient oriented x3, moves all extremities and No confusion Cranial nerves: Yes Equal, round and reactive pupils present and Yes Normal hearing present Cognition (Neuro): normal cognition Speech: No Abnormal speech present Gait exam (Neuro): gait not assisted and Assistive device used Motor exam (neuro): Other motor observations present (occasional widespread jerking movements throughout the visit) Psych Appearance: grossly normal and well kempt Mental Status: mental status grossly normal Speech and movement: Normal speech and movement present Affect: normal affect Attitude: cooperative Thought process: Normal thought process present Thought content: Normal thought content present Insight: Good insight present (Psych) Judgement: Good judgement present (Psych) Assessment & Plan Assessment & Plan (1) Bilateral primary osteoarthritis of knee: Code(s): M17.0 - Bilateral primary osteoarthritis of knee (2) Chronic pain syndrome: Code(s): G89.4 - Chronic pain syndrome (3) Failed back syndrome of cervical spine: Code(s): M96.1 - Postlaminectomy syndrome, not elsewhere classified (4) Opioid contract exists: Code(s): Z79.891 - snf (current) use of opiate analgesic Plan Patient has shown accountability for his medication regimen and the pill count was accurate. There is no evidence of misuse, abuse or diversion at this time. [employer] reviewed. The prescription for oxycodone will be sent on on 02/23/2023 The he was suspended on erroneous UDS. I will continue current opioid doses. The patient reports short-term memory loss. Medications: Refilled oxycodone Partial Fill upon patient request. 5 mg PO Q4H PRN 150 tabs 0RF pain 30 days MDD 5 G20 - Parkinson's disease, G89.4 - Chronic pain syndrome, M17.0 - Bilateral primary osteoarthritis of knee, M96.1 - Postlaminectomy syndrome, not elsewhere classified Coding Level of Care Code Est Pt Level 3 (47625) Diagnoses Bilateral primary osteoarthritis of knee M17.0 Chronic pain syndrome G89.4 Failed back syndrome of cervical spine M96.1 Opioid contract exists Z79.891
[2023-02-07 11:07] VITALS: BP 132/86; PULSE 74; RESP 16; O2SAT 96; BMI 30.9
== END 2023-02-07 11:17 | disposition home or self-care (01) ==
PROVIDERS: PCP Internal Medicine; Visit Provider Anesthesiology
DX: M17.0 Bilateral primary osteoarthritis of knee (principal); G89.4 Chronic pain syndrome; M96.1 Postlaminectomy syndrome, not elsewhere classified; Z79.891 Long term (current) use of opiate analgesic
CPT/HCPCS: 99213

== ENCOUNTER → 2023-02-07 10:54 | Outpatient (BNVA) | payer MEDICARE, OTHER, SELFPAY | PROVIDERS: PCP Internal Medicine; Visit Provider Anesthesiology | DX: Z51.81 Encounter for therapeutic drug level monitoring (principal); M17.0 Bilateral primary osteoarthritis of knee; M96.1 Postlaminectomy syndrome, not elsewhere classified; G89.4 Chronic pain syndrome; Z79.891 Long term (current) use of opiate analgesic | CPT/HCPCS: 99212 ==

== ENCOUNTER 2023-02-13 11:08 | Outpatient (AMB) | payer MEDICARE, OTHER, SELFPAY ==
--- NOTE | 2023-02-13 11:13 | A.OFFVIS_ITS ---
Intake Vital Signs 02/13/23 11:22 Height 5 ft 7 in Weight 200 lb BMI 31.3 BP 155/70 H Blood Pressure Location Rt radial Position Sitting Pulse 75 Intake Visit Reasons: wound check, abdominal wounds (1 area non-healing) Intake Note: Patient is seen in office for follow up visit, following non healing abdominal wound. Patient c/o: incisions are healing slowly, top incision is closed, middle half way closed, bottom incision is getting smaller and minimal discharge Customer Support Engineer Required: No Accompanied by: Spouse Allergies Sulfa (Sulfonamide Antibiotics) Allergy (Severe, Verified 02/13/23 11:21) HIVES/DIFF.BREATHING vancomycin [VANCOMYCIN] Allergy (Severe, Verified 02/13/23 11:21) SHORTNESS OF BREATH cephalexin [CEPHALEXIN] Allergy (Intermediate, Verified 02/13/23 11:21) SHORTNESS OF BREATH Medication List - Last Reconciled 02/13/23 by Aric Mcneill MD amantadine HCl 1 tab PO TID baclofen 20 mg PO QID 30 days buspirone 1 tab PO BID PRN carbidopa-levodopa 25-100 mg 1 tab PO TID cholecalciferol (vitamin D3) (Vitamin D3) 50 mcg PO DAILY diazepam 2.5 mg PO BID-TID PRN diclofenac sodium 1% 2 grams topical QID PRN diltiazem HCl 240 mg PO DAILY donepezil 10 mg PO BEDTIME doxycycline hyclate 100 mg PO BID duloxetine 60 mg PO DAILY finasteride 5 mg PO DAILY fluticasone propionate 50 mcg/actuation 1 spray intranasal BID levothyroxine 50 mcg PO DAILY@0600 lidocaine 5% 1 patch topical BID lisinopril 20 mg PO DAILY memantine 10 mg PO BID metronidazole 500 mg PO Q8H multivitamin (Daily Multi-Vitamin tablet) 1 tab PO DAILY naloxone 4 mg/actuation (Narcan) 4 mg intranasal Q2M PRN ondansetron HCl 4 mg PO DAILY PRN oxycodone 5 mg PO Q4H PRN 30 days MDD 5 pantoprazole 40 mg PO DAILY@0630 pregabalin 300 mg PO BID ropinirole 6 mg PO DAILY@1200 ropinirole 12 mg PO BEDTIME tamsulosin 0.4 mg PO BID trazodone 3 tabs PO BEDTIME HPI HPI Comments History of Present Illness Details Mr. Nguyen returns for wound check of his midline incision. The upper 2 incisions are nearly healed with minimal discharge noted currently. Lower incision which is in a crevice is draining a small amount a yellow discharge. Overall he feels well and has been eating normally. He denies problems with his bowels. He also denies fever or chills. [facility] Medical History (Updated 02/13/23 @ 11:31 by Aric Mcneill MD) Open wound anterior abdominal wall Abdominal wound dehiscence Wound dehiscence History of diverticulitis Upper back pain, chronic Neck pain HTN (hypertension) Hypertensive heart disease PAC (premature atrial contraction) BPH (benign prostatic hyperplasia) Hypothyroidism Hard of hearing GERD (gastroesophageal reflux disease) Restless leg syndrome Parkinsons Bilateral primary osteoarthritis of knee Chronic pain syndrome Failed back syndrome of cervical spine Surgical History History of surgery (09/06/22) History of colostomy reversal History of foot surgery Hx of hernia repair Hx laparoscopic cholecystectomy Hx of colonoscopy H/O neck surgery Hx of fusion of cervical spine History of total left knee replacement (TKR) History of surgery (05/29/22) H/O exploratory laparotomy (05/18/22) Social History Household Members: Spouse Household Members Other:: 1 Housing: House Are you a primary behavioral health care coordinator to a significant other at home: No Do you presently have visiting nurse or other home services: Yes (PT) Alcohol intake: current Alcohol intake frequency: holidays/special occasions only Patient Tobacco Use Status: Former Tobacco user Quit Date: >30 yrs ago Tobacco use type: Cigarette e-Cigarette/Vaping Use: Former Use Second Hand Smoke Exposure: No Substance Use Type: Marijuana and Prescription Drugs Advance Directives Date on File: 01/19/20 service: No Current occupational status: retired Physical Exam Const General: comfortable and no acute distress Nutritional Appearance: well nourished Resp Effort & Inspection: normal respiratory effort GI Other: Lower midline incision reveals 3 areas of residual granulation tissue with minimal discharge, shallow blind tracks without palpable suture material. Sterile Band-Aids were applied. Skin Other: As noted in abdominal incision above Assessment & Plan Assessment & Plan (1) Open wound anterior abdominal wall: Code(s): S31.109A - Unspecified open wound of abdominal wall, unspecified quadrant without penetration into peritoneal cavity, initial encounter Qualifiers: Encounter type: sequela Qualified Code(s): S31.109S - Unspecified open wound of abdominal wall, unspecified quadrant without penetration into peritoneal cavity, sequela Plan 72-year-old male patient returning for wound check of his lower midline incision. Overall he is much improved with all incisions which improved today. He should continue with the dry sterile dressings and return as needed for any new concerns. Coding Level of Care Code Global (30149) Diagnoses Open wound of anterior abdominal wall, sequela S31.109S Encounter type: sequela
[2023-02-13 11:22] VITALS: BP 155/70; PULSE 75; BMI 31.3
== END 2023-02-13 11:28 | disposition home or self-care (01) ==
PROVIDERS: PCP Internal Medicine; Visit Provider Surgery
DX: S31.109S Unspecified open wound of abdominal wall, unspecified quadrant without penetration into peritoneal cavity, sequela (principal)
CPT/HCPCS: 99213

== ENCOUNTER → 2023-02-13 11:08 | Outpatient (BNVA) | payer MEDICARE, OTHER, SELFPAY | PROVIDERS: PCP Internal Medicine; Visit Provider Surgery | DX: S31.109D Unspecified open wound of abdominal wall, unspecified quadrant without penetration into peritoneal cavity, subsequent encounter (principal) | CPT/HCPCS: 99212 ==

== ENCOUNTER → 2023-03-07 10:50 | Outpatient (BNVA) | payer MEDICARE, OTHER, SELFPAY | PROVIDERS: PCP Internal Medicine; Visit Provider Anesthesiology | DX: Z02.89 Encounter for other administrative examinations (principal); Z79.891 Long term (current) use of opiate analgesic | CPT/HCPCS: 99211 ==

== ENCOUNTER → 2023-04-11 09:27 | Outpatient (BNVA) | payer MEDICARE, OTHER, SELFPAY | PROVIDERS: PCP Internal Medicine; Visit Provider Anesthesiology | DX: Z51.81 Encounter for therapeutic drug level monitoring (principal); F11.20 Opioid dependence, uncomplicated | CPT/HCPCS: 99211 ==

== ENCOUNTER 2023-04-17 12:53 | Outpatient (AMB) | payer MEDICARE, OTHER, SELFPAY ==
--- NOTE | 2023-04-17 13:08 | A.OFFVIS_ITS ---
Intake Vital Signs 04/17/23 13:18 Height 5 ft 7 in BP 136/69 Blood Pressure Location Lt brachial Position Sitting Pulse 84 Pulse Oximetry (%) 97 Oxygen Delivery Method Room Air Intake Visit Reasons: wound check (drainage) Intake Note: This patient presents for a wound check(drainage). Patient c/o; reports drainage. Staff Technologist Required: No Accompanied by: Other Relationship Allergies Sulfa (Sulfonamide Antibiotics) Allergy (Severe, Verified 04/17/23 13:09) HIVES/DIFF.BREATHING vancomycin [VANCOMYCIN] Allergy (Severe, Verified 04/17/23 13:09) SHORTNESS OF BREATH cephalexin [CEPHALEXIN] Allergy (Intermediate, Verified 04/17/23 13:09) SHORTNESS OF BREATH Medication List - Last Reconciled 04/17/23 by Aric Mcneill MD amantadine HCl 1 tab PO TID baclofen 20 mg PO QID 30 days buspirone 1 tab PO BID PRN carbidopa-levodopa 25-100 mg 1 tab PO TID cholecalciferol (vitamin D3) (Vitamin D3) 50 mcg PO DAILY diazepam 2.5 mg PO BID-TID PRN diclofenac sodium 1% 2 grams topical QID PRN diltiazem HCl 240 mg PO DAILY donepezil 10 mg PO BEDTIME doxycycline hyclate 100 mg PO BID duloxetine 60 mg PO DAILY finasteride 5 mg PO DAILY fluticasone propionate 50 mcg/actuation 1 spray intranasal BID levothyroxine 50 mcg PO DAILY@0600 lidocaine 5% 1 patch topical BID lisinopril 20 mg PO DAILY memantine 10 mg PO BID metronidazole 500 mg PO Q8H multivitamin (Daily Multi-Vitamin tablet) 1 tab PO DAILY naloxone 4 mg/actuation (Narcan) 4 mg intranasal Q2M PRN ondansetron HCl 4 mg PO DAILY PRN oxycodone 5 mg PO Q4H PRN 30 days MDD 5 pantoprazole 40 mg PO DAILY@0630 pregabalin 300 mg PO BID ropinirole 6 mg PO DAILY@1200 ropinirole 12 mg PO BEDTIME tamsulosin 0.4 mg PO BID trazodone 3 tabs PO BEDTIME HPI HPI Comments History of Present Illness Details 72-year-old male patient status post Andrew tmann procedure complicated by wound dehiscence now presenting with 3 areas of drainage noted last week by his . He returns today for wound check. Since last week however all 3 areas have dried. He denies any abdominal pain, nausea or vomiting. He is eating well and has normal bowel movements. [facility] Medical History (Updated 02/13/23 @ 11:31 by Aric Mcneill MD) Open wound anterior abdominal wall Abdominal wound dehiscence Wound dehiscence History of diverticulitis Upper back pain, chronic Neck pain HTN (hypertension) Hypertensive heart disease PAC (premature atrial contraction) BPH (benign prostatic hyperplasia) Hypothyroidism Hard of hearing GERD (gastroesophageal reflux disease) Restless leg syndrome Parkinsons Bilateral primary osteoarthritis of knee Chronic pain syndrome Failed back syndrome of cervical spine Surgical History History of surgery (09/06/22) History of colostomy reversal History of foot surgery Hx of hernia repair Hx laparoscopic cholecystectomy Hx of colonoscopy H/O neck surgery Hx of fusion of cervical spine History of total left knee replacement (TKR) History of surgery (05/29/22) H/O exploratory laparotomy (05/18/22) Social History Household Members: Spouse Household Members Other:: 1 Housing: House Are you a primary neonatal intensive care nurse to a significant other at home: No Do you presently have visiting nurse or other home services: Yes (PT) Alcohol intake: current Alcohol intake frequency: holidays/special occasions only Comment: sitter in room Patient Tobacco Use Status: Former Tobacco user Quit Date: >30 yrs ago Tobacco use type: Cigarette e-Cigarette/Vaping Use: Former Use Second Hand Smoke Exposure: No Substance Use Type: Marijuana and Prescription Drugs Advance Directives Date on File: 01/19/20 service: No Current occupational status: retired Review of Systems Const All systems reviewed & are unremarkable except as noted in HPI and below Physical Exam Vital Signs: Last Vital Signs Pulse 84 04/17/23 13:18 BP 136/69 04/17/23 13:18 Pulse Ox 97 04/17/23 13:18 Oxygen Delivery Method Room Air 04/17/23 13:18 Const General: no acute distress Nutritional Appearance: well nourished Orientation/consciousness: patient oriented x3 Limitations: wheelchair Resp Effort & Inspection: normal respiratory effort GI Other: Healed midline incision with 1 small area of prior drainage in the mid incision measuring approximately 1 x 0.5 cm. An attempt was made at cauterization using silver nitrate. This was found to be sealed over with no open wound. Dry sterile dressings as a protective dressing was then applied. Neuro General: patient oriented x3 Extrem General: Yes normal to inspection Assessment & Plan Assessment & Plan (1) Open wound anterior abdominal wall: Code(s): S31.109A - Unspecified open wound of abdominal wall, unspecified quadrant without penetration into peritoneal cavity, initial encounter Qualifiers: Encounter type: sequela Qualified Code(s): S31.109S - Unspecified open wound of abdominal wall, unspecified quadrant without penetration into peritoneal cavity, sequela Plan Patient is much improved this week with no further discharge noted. He should follow up as needed. Coding Level of Care Code Est Pt Level 3 (32101) Diagnoses Open wound of anterior abdominal wall, sequela S31.109S Encounter type: sequela
[2023-04-17 13:18] VITALS: BP 136/69; PULSE 84; O2SAT 97
== END 2023-04-17 13:33 | disposition home or self-care (01) ==
PROVIDERS: PCP Internal Medicine; Visit Provider Surgery
DX: T81.31XS Disruption of external operation (surgical) wound, not elsewhere classified, sequela (principal)
CPT/HCPCS: 17250; 99213

== ENCOUNTER → 2023-04-17 12:53 | Outpatient (BNVA) | payer MEDICARE, OTHER, SELFPAY | PROVIDERS: PCP Internal Medicine; Visit Provider Surgery | DX: T81.31XA Disruption of external operation (surgical) wound, not elsewhere classified, initial encounter (principal) | CPT/HCPCS: 17250; 99212 ==

== ENCOUNTER 2023-05-09 09:23 | Outpatient (AMB) | payer MEDICARE, OTHER, SELFPAY ==
--- NOTE | 2023-05-09 09:38 | A.OFFVIS_ITS ---
Intake Vital Signs 05/09/23 09:41 Height 5 ft 7 in Weight 200 lb BMI 31.3 BP 134/76 Blood Pressure Location Lt radial Position Sitting Respiration 14 Pulse 86 Pulse Source Pulse Oximeter Pulse Oximetry (%) 96 Oxygen Delivery Method Room Air Intake Visit Reasons: Medication count Intake Note: Patient comes in for pill count to Oxycodone 5 mg tablet. Reports pain level 7/10. Allergies Sulfa (Sulfonamide Antibiotics) Allergy (Severe, Verified 05/09/23 09:39) HIVES/DIFF.BREATHING vancomycin [VANCOMYCIN] Allergy (Severe, Verified 05/09/23 09:39) SHORTNESS OF BREATH cephalexin [CEPHALEXIN] Allergy (Intermediate, Verified 05/09/23 09:39) SHORTNESS OF BREATH HPI HPI Comments History of Present Illness Details Kevan presents today for a pill count. He is accompanied by his and arrived via walker. He looks better today his Parkinson tremors are not as bad as they were before. However he admits the disease progression, he admits spastic sensation all over the body, he admits mental forgetfulness. History of tapentadol in UDS which was deemed to be a laboratory error. Reinstated in the program. Pill count today is: His supposed to have 75 pills in his possession he had 79 pills. He is also taking diazepam. He reports that he has Narcan at home. His confirms presence of Narcan at home. They think that Narcan is not yet. If it is they will give us a call and I will renew prescription of Narcan. Prior: Patient underwent laparotomy, Milla's procedure and washout for intraabdominal interloop abscesses on 05/18/22 and was brought back to OR on 05/29/22 for repair of fascial dehiscence with retention sutures. He reports that his laparotomy heels but he has tiny little opening on his abdomen which continues to produce biliary fluid. He is under care of Dr. Mcneill. Mr. Rivas is very pleasant 71 years old gentleman who is in my office today complaining on very severe pain in the neck with radiation into the back of the head in the down into the thoracic and lumbar spine. He also complains on severe pain in bilateral shoulders. He is suffering from Parkinson disease. He is taking opioid medications for his pain. He is also suffering from postlaminectomy syndrome and he recently had very wide extend the fusion of C2 through C7 cervical vertebra as. He states that his life expenditure going to be shorter that regular [place] life expenditure. He reports his pain is very severe in the range of 9/10 of the time. He reports that opioid medications help him moderately to alleviate this pain. He used to take 5 mg of oxycodone 4 times a day. It was recent sick increase from 3 times a day to 4 times a day. I discussion was held today about opioid induced hyperalgesia and opioid induced tolerance. I warned him that his life expectancy is also will be shortened by administration of the opioid medication especially if we keep increasing his doses. I think he is quite miserable currently on a in his condition. I will attempt to increase his dose of opioid medications to 25 mg of oxycodone a day making it 5 mg 5 times a day. Unfortunately he is not a candidate for any spinal cord stimulator because his posterior epidural space is completely obliterated. It is unclear whether not he will be a good candidate for pain pump. [facility] Medical History (Updated 02/13/23 @ 11:31 by Aric Mcneill MD) Open wound anterior abdominal wall Abdominal wound dehiscence Wound dehiscence History of diverticulitis Upper back pain, chronic Neck pain HTN (hypertension) Hypertensive heart disease PAC (premature atrial contraction) BPH (benign prostatic hyperplasia) Hypothyroidism Hard of hearing GERD (gastroesophageal reflux disease) Restless leg syndrome Parkinsons Bilateral primary osteoarthritis of knee Chronic pain syndrome Failed back syndrome of cervical spine Surgical History History of surgery (09/06/22) History of colostomy reversal History of foot surgery Hx of hernia repair Hx laparoscopic cholecystectomy Hx of colonoscopy H/O neck surgery Hx of fusion of cervical spine History of total left knee replacement (TKR) History of surgery (05/29/22) H/O exploratory laparotomy (05/18/22) Social History Household Members: Spouse Household Members Other:: 1 Housing: House Are you a primary career development coordinator to a significant other at home: No Do you presently have visiting nurse or other home services: Yes (PT) Alcohol intake: current Alcohol intake frequency: holidays/special occasions only Comment: sitter in room Patient Tobacco Use Status: Former Tobacco user Quit Date: >30 yrs ago Tobacco use type: Cigarette e-Cigarette/Vaping Use: Former Use Second Hand Smoke Exposure: No Substance Use Type: Marijuana and Prescription Drugs Advance Directives Date on File: 01/19/20 service: No Current occupational status: retired Review of Systems Const All systems reviewed & are unremarkable except as noted in HPI and below ENT Reports Normal hearing present Neuro Reports Normal hearing present, Denies Abnormal speech present and Denies confusion Psych Denies confusion Physical Exam Vital Signs: Last Vital Signs Pulse 86 05/09/23 09:41 Resp 14 05/09/23 09:41 BP 134/76 05/09/23 09:41 Pulse Ox 96 05/09/23 09:41 Oxygen Delivery Method Room Air 05/09/23 09:41 BMI result Body Mass Index 31.3 Const General: cooperative, healthy appearing, no acute distress, alert and well groomed; No confusion Nutritional Appearance: well nourished and obese Orientation/consciousness: patient oriented x3 and No confusion Limitations: wheelchair HEENT Head: Yes normal to inspection, Yes normocephalic and Yes atraumatic Ears: hearing grossly normal bilaterally General nose exam: No nasal discharge present Face and sinus: Yes normal facial exam and Yes face symmetric Eyes General: appearance normal, both eyes and all related structures Visual Atwood: normal visual atwood by confrontation Eyelids: Yes eyelids normal Pupils: Equal, round and reactive pupils present EOM: EOMs intact bilaterally Neck Neck: Yes normal visual inspection, Yes no lymphadenopathy, No anterior neck swelling and Yes no JVD Resp Effort & Inspection: normal respiratory effort, able to speak in complete sentences and no audible wheezes Cardio Jugular venous distension: no JVD Bruits: no carotid bruits Peripheral pulses: Peripheral pulses 2+ throughout GI Inspection: Yes normal to inspection and No distended Palpation (GI): Soft to palpation and no guarding Back/Spine/Pelvis Cervical Spine: cervical muscular tenderness, pain with cervical ROM and No Cervical spine tenderness Thoracic/Lumbar Spine: thoracic and lumbar spine normal to inspection, thoraco- lumbar ROM limited, No thoracic spinal tenderness and No lumbar spinal tenderness Neuro General: patient oriented x3, moves all extremities and No confusion Cranial nerves: Yes Equal, round and reactive pupils present and Yes Normal hearing present Cognition (Neuro): normal cognition Speech: No Abnormal speech present Gait exam (Neuro): Assisted gait required and Assistive device used Motor exam (neuro): Other motor observations present (occasional widespread jerking movements throughout the visit) Psych Appearance: grossly normal and well kempt Mental Status: other (Reports short-term memory loss) Speech and movement: Normal speech and movement present Affect: normal affect Attitude: cooperative Thought process: Normal thought process present Thought content: Normal thought content present Assessment & Plan Assessment & Plan (1) Bilateral primary osteoarthritis of knee: Code(s): M17.0 - Bilateral primary osteoarthritis of knee (2) Chronic pain syndrome: Code(s): G89.4 - Chronic pain syndrome (3) Failed back syndrome of cervical spine: Code(s): M96.1 - Postlaminectomy syndrome, not elsewhere classified (4) Opioid contract exists: 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 There is no evidence of misuse, abuse or diversion at this time. [employer] reviewed. The prescription for oxycodone will be sent on on 05/24/2023 part I will renew the tizanidine as well. Patient has Narcan at home. His thinks that Narcan is not . If it is she will give us a call and she will send us request to renew Narcan. Medications: New tizanidine 4 mg PO BID PRN 60 tabs 5RF muscle spasticity 30 days Refilled oxycodone Partial Fill upon patient request. 5 mg PO Q4H PRN 150 tabs 0RF pain 30 days MDD 5 G20 - Parkinson's disease, G89.4 - Chronic pain syndrome, M17.0 - Bilateral primary osteoarthritis of knee, M96.1 - Postlaminectomy syndrome, not elsewhere classified Coding Level of Care Code Est Pt Level 3 (61522) Diagnoses Bilateral primary osteoarthritis of knee M17.0 Chronic pain syndrome G89.4 Failed back syndrome of cervical spine M96.1 Opioid contract exists Z79.891
[2023-05-09 09:41] VITALS: BP 134/76; PULSE 86; RESP 14; O2SAT 96; BMI 31.3
== END 2023-05-09 09:55 | disposition home or self-care (01) ==
PROVIDERS: PCP Internal Medicine; Visit Provider Anesthesiology
DX: G89.4 Chronic pain syndrome (principal); M17.0 Bilateral primary osteoarthritis of knee; M96.1 Postlaminectomy syndrome, not elsewhere classified; Z79.891 Long term (current) use of opiate analgesic
CPT/HCPCS: 99213

== ENCOUNTER → 2023-05-09 09:23 | Outpatient (BNVA) | payer MEDICARE, OTHER, SELFPAY | PROVIDERS: PCP Internal Medicine; Visit Provider Anesthesiology | DX: Z51.81 Encounter for therapeutic drug level monitoring (principal); M17.0 Bilateral primary osteoarthritis of knee; M96.1 Postlaminectomy syndrome, not elsewhere classified; G89.4 Chronic pain syndrome; Z79.891 Long term (current) use of opiate analgesic | CPT/HCPCS: 99212 ==

== ENCOUNTER 2023-05-24 14:36 | Outpatient (REF) | payer MEDICARE, OTHER, SELFPAY ==
[2023-05-24 14:52] LABS: MANUAL DIFF FLAG NO
[2023-05-24 15:24] LABS: Basophils Absolute Auto 0.1 X10*3/uL (0.0-0.2); Basophils Percent Auto 2.1 % (0-2); Eosinophils Absolute Auto 0.3 X10*3/uL (0.0-0.4); Eosinophils Percent Auto 5.3 % (0-4); Hematocrit 36.7 % (42.0-52.0); Hemoglobin 10.6 g/dl (14.0-18.0); Imm Gran Abs Auto 0.01 X10*3/uL (0.00-0.03); Imm Gran Pct Auto 0.2 % (0.0-0.4); Lymphocytes Absolute Auto 1.3 X10*3/uL (1.2-4.9); Lymphocytes Percent Auto 24.6 % (20-40); Mean Corpuscular HGB Conc 28.9 g/dl (31.0-36.0); Mean Corpuscular Hemoglobin 23.7 pg (27.0-33.0); Mean Corpuscular Volume 81.9 fL (80.0-98.0); Mean Platelet Volume 9.6 fL (9.4-12.4); Monocytes Absolute Auto 0.5 X10*3/uL (0.1-1.2); Monocytes Percent Auto 10.2 % (2-11); Neutrophils Percent Auto 57.6 % (45-73); Platelet Count 210 X10*3/uL (160-400); Red Blood Count 4.48 X10*6/uL (4.60-5.80); Red Cell Distribution Width 16.5 % (11.0-16.0); White Blood Count 5.1 X10*3/uL (4.8-10.8)
[2023-05-24 15:58] LABS: Appearance Urine Clear; Color Urine Yellow; Glucose Urine UA Negative (Negative); Leukocyte Esterase Urine Negative (Negative); Nitrite Urine Negative (Negative); Specific Gravity - Urine >= 1.030 (1.005-1.025); Urine Blood Negative (Negative); Urine Ketones Trace mg/dL (Negative); Urine Protein Negative (Neg-Trace)
[2023-05-24 16:12] LABS: Alanine Aminotransferase 5 U/L (0-40); Albumin Level 3.8 g/dL (3.5-5.0); Alkaline Phosphatase 113 U/L (39-117); Anion Gap 10 (12-20); Aspartate Amino Transferase 14 U/L (5-37); Bilirubin Total 0.3 mg/dL (0.0-1.0); Blood Urea Nitrogen 20 mg/dL (9-16); Calcium 9.1 mg/dL (8.4-10.2); Carbon Dioxide 32 mmol/L (22-29); Chloride 104 mmol/L (96-108); Estimated Glomerular Filt Rate > 60; Glucose Random 103 mg/dL (60-115); Sodium 142 mmol/L (135-145); Total Protein 6.5 g/dL (6.5-8.0)
[2023-05-24 16:26] LABS: Thyroid Stimulating Hormone 1.93 uIU/mL (0.32-4.0)
[2023-05-24 16:39] LABS: T4 Thyroxine 7.3 ug/dL (4.5-12.0)
== END 2023-05-24 14:37 | disposition home or self-care (01) ==
LOC: HO.LAB 14:36
PROVIDERS: PCP Internal Medicine; Visit Provider Internal Medicine
DX: E03.9 Hypothyroidism, unspecified (principal); K21.9 Gastro-esophageal reflux disease without esophagitis; N40.0 Benign prostatic hyperplasia without lower urinary tract symptoms; G20.A1 Parkinson's disease without dyskinesia, without mention of fluctuations
CPT/HCPCS: 36415; 80053; 81003; 82550; 84436; 84443; 85025; 87086